=== PATIENT | female | born 1970 | race Caucasian/White ===

== ENCOUNTER 2016-12-29 15:24 | Emergency (ER) | payer OTHER ==
--- NOTE | 2016-12-29 16:11 | ED ---
General Adult HPI - General Chief complaint: Psychiatric Symptoms Stated complaint: mental health Time Seen by Provider: 12/29/16 15:41 Source: patient, family, RN notes reviewed Mode of arrival: ambulatory Limitations: no limitations - History of Present Illness Initial comments: Patient 46-year-old female who presents emergency room today with a chief complaint of increased suicidal thoughts. Patient states that over the last few weeks been having increased thoughts. She states she saw her psychiatrist and did have some medication changes. She states that she still having thoughts of hurting himself. She isn't exam is benign. She states she has had thoughts of hurting herself in the past and has been hospitalized. She denies any homicidal thoughts or plans. She denies any other complaints or symptoms at this time. She admits that last night she was nauseated had a few episodes of vomiting. States she's not having vomiting today. States she has been tolerating liquids and food. Denies any abdominal pain or complaints. Patient denies any recent fever, chills, shortness of breath, chest pain, back pain, abdominal pain, numbness or tingling, dysuria or hematuria, constipation or diarrhea, headaches or visual changes, or any other complaints. - Related Data Home Medications Medication Instructions Recorded Confirmed Bisoprolol-Hctz 10-6.25 mg [Ziac 1 tab PO DAILY 09/02/14 12/29/16 10-6.25 MG] Sertraline [Zoloft] 100 mg PO QAM 09/02/14 12/29/16 Simvastatin [Zocor] 20 mg PO DAILY 09/02/14 12/29/16 Zolpidem [Ambien] 10 mg PO HS 09/02/14 12/29/16 cloNIDine HCL [Catapres] 0.1 mg PO BID 09/02/14 12/29/16 glyBURIDE/METFORMIN HCL 2 tab PO BID 09/02/14 12/29/16 [Glucovance 5-500 mg Tablet] Lurasidone [Latuda] 40 mg PO DAILY 02/06/16 12/29/16 Doxepin HCl [SINEquan] 100 mg PO HS 12/29/16 12/29/16 Omeprazole 20 mg PO HS 12/29/16 12/29/16 Allergies Allergy/AdvReac Type Severity Reaction Status Date / Time erythromycin base Allergy Unknown Verified 12/29/16 16:03 meperidine HCl [From Demerol] Allergy Unknown Verified 12/29/16 16:03 Penicillins Allergy Unknown Verified 12/29/16 16:03 Sulfa (Sulfonamide Allergy Unknown Verified 12/29/16 16:03 Antibiotics) Review of Systems ROS Statement: Those systems with pertinent positive or pertinent negative responses have been documented in the HPI. ROS Other: All systems not noted in ROS Statement are negative. Past Medical History Past Medical History: Diabetes Mellitus, Hyperlipidemia, Hypertension History of Any Multi-Drug Resistant Organisms: MRSA Date of last positivie culture/infection: 01/2010 MDRO Source:: abdomen Past Surgical History: Section, Hysterectomy Additional Past Surgical History / Comment(s): ophrarectomy Past Anesthesia/Blood Transfusion Reactions: No Reported Reaction Past Psychological History: Bipolar, Depression Smoking Status: Never smoker Past Alcohol Use History: None Reported Past Drug Use History: None Reported General Exam - General Exam Comments Initial Comments: General: The patient is awake and alert, in no distress, and does not appear acutely ill. Eye: Pupils are equal, round and reactive to light, extra-ocular movements are intact. No nystagmus. There is normal conjunctiva bilaterally. No signs of icterus. Ears, nose, mouth and throat: There are moist mucous membranes and no oral lesions. Neck: The neck is supple, there is no tenderness or JVD. Cardiovascular: There is a regular rate and rhythm. No murmur, rub or gallop is appreciated. Respiratory: Lungs are clear to auscultation, respirations are non-labored, breath sounds are equal. No wheezes, stridor, rales, or rhonchi. Gastrointestinal: Soft, non-distended, non-tender abdomen without masses or organomegaly noted. There is no rebound or guarding present. No CVA tenderness. Bowel sounds are unremarkable. Musculoskeletal: Normal ROM, no tenderness. Strength 5/5. Sensation intact. Pulses equal bilaterally 2+. Neurological: A&O x 3. CN II-XII intact, There are no obvious motor or sensory deficits. Coordination appears grossly intact. Speech is normal. Skin: Skin is warm and dry and no rashes or lesions are noted. Psychiatric: Cooperative. Limitations: no limitations Course Vital Signs 12/29/16 15:28 Temperature 97.6 F Pulse Rate 93 Respiratory 16 Rate Blood Pressure 127/61 O2 Sat by Pulse 95 Oximetry Medical Decision Making - Medical Decision Making Patient been seen here in the emergency room by mental there recommendation admission to the hospital. Patient willing to sign herself in. - Lab Data Lab Results 12/29/16 Range/Units 15:51 Urine Opiates Screen Not Detected (NotDetected) Ur Oxycodone Screen Not Detected (NotDetected) Urine Methadone Screen Not Detected (NotDetected) Ur Propoxyphene Screen Not Detected (NotDetected) Ur Barbiturates Screen Not Detected (NotDetected) U Tricyclic Antidepress Detected H (NotDetected) Ur Phencyclidine Scrn Not Detected (NotDetected) Ur Amphetamines Screen Not Detected (NotDetected) U Methamphetamines Scrn Not Detected (NotDetected) U Benzodiazepines Scrn Detected H (NotDetected) Urine Cocaine Screen Not Detected (NotDetected) U Marijuana (THC) Screen Not Detected (NotDetected) Disposition Clinical Impression: Suicidal ideation Disposition: TRANSFER TO PSYCH HOSP/UNIT Condition: Stable Referrals: Judy Levy MD [Primary Care Provider] - 1-2 days Time of Disposition: 18:27
[2016-12-29 19:47] LABS: Appearance,Urine Cloudy (Clear); Bilirubin,Urine Negative (Negative); Glucose,Urine (UA) 4+ (Negative); Ketones,Urine Trace (Negative); Leukocyte Esterase,Urine Moderate (Negative); Mucus,Urine Rare /hpf; Nitrite,Urine Negative (Negative); Particle Count 4720; Protein,Urine Trace (Negative); RBC,Urine 23 /hpf (0-5); Specific Gravity,Urine 1.025 (1.001-1.035); Squamous Epithelial Cell,Urine 6 /hpf (0-4); UA Billing (MACRO vs. MICRO) MICRO; WBC,Urine 4 /hpf (0-5)
[2016-12-29 19:52] LABS: Basophils % (A) 1 %; CH 26.9; CHCM 33.3; Eosinophils # (A) 0.1 k/uL (0-0.7); Eosinophils % (A) 1 %; HCT 43.4 % (34.0-46.0); HGB 14.9 gm/dL (11.4-16.0); Luc % (Auto) 2; Lymphocytes # (A) 1.8 k/uL (1.0-4.8); Lymphocytes % (A) 33 %; MCH 27.9 pg (25.0-35.0); MCHC 34.4 g/dL (31.0-37.0); MCV 81.1 fL (80.0-100.0); Mean Platelet Volume 7.6; Monocytes # (A) 0.3 k/uL (0-1.0); Monocytes % (A) 6 %; Neutrophils % (A) 57 %; RBC 5.36 m/uL (3.80-5.40); WBC 5.3 k/uL (3.8-10.6); WBC (Perox) 5.17
[2016-12-29 20:01] LABS: ALT 39 U/L (9-52); AST 39 U/L (14-36); Alkaline Phosphatase 147 U/L (38-126); Anion Gap 9 mmol/L; Blood Urea Nitrogen 8 mg/dL (7-17); Calcium 9.2 mg/dL (8.4-10.2); Carbon Dioxide 26 mmol/L (22-30); Chloride 100 mmol/L (98-107); Glucose 307 mg/dL (74-99); Non-African American GFR(MDRD) >60 (>60 ml/min/1.73 sqM); Potassium 3.5 mmol/L (3.5-5.1); Sodium 135 mmol/L (137-145); Total Bilirubin 1.5 mg/dL (0.2-1.3); Total Protein 7.5 g/dL (6.3-8.2)
[2016-12-29] MEDS ORDERED: metFORMIN 500 MG TAB PO STA (21:55)
[2016-12-29] MEDS ORDERED: cloNIDine HCL 0.1 MG TAB PO STA (21:56)
[2016-12-29] MEDS ORDERED: PANTOPRAZOLE 40 MG TABLET PO STA (21:58)
[2016-12-29] MEDS ORDERED: ZOLPIDEM 10 MG TAB PO PRN (22:00)
[2016-12-29] MEDS ORDERED: DOXEPIN 25 MG CAP PO ONE (22:04)
[2016-12-30] MEDS ORDERED: metFORMIN 500 MG TAB PO STA (07:15)
[2016-12-30] MEDS ORDERED: SERTRALINE 100 MG TAB PO STA (07:17)
[2016-12-30] MEDS ORDERED: cloNIDine HCL 0.1 MG TAB PO STA (07:17)
[2016-12-30] MEDS ORDERED: LURASIDONE 40 MG TAB PO STA (07:18)
[2016-12-30] MEDS ORDERED: BISOPROLOL-HCTZ 10-6.25 MG 1 EACH TAB PO STA (07:18)
[2016-12-30] MEDS ORDERED: glipiZIDE 10 MG TAB PO STA (07:29)
[2016-12-30 20:29] VITALS: BP 130/62; PULSE 84; RESP 16; TEMP 98
[2016-12-30] MEDS ORDERED: ONDANSETRON ODT 4 MG TAB PO STA (20:44)
== END 2016-12-30 20:41 ==
LOC: EC 15:24
DX: R45.851 Suicidal ideations (principal); E11.9 Type 2 diabetes mellitus without complications; I10 Essential (primary) hypertension; E78.5 Hyperlipidemia, unspecified; F31.9 Bipolar disorder, unspecified; Z86.14 Personal history of Methicillin resistant Staphylococcus aureus infection; Z79.84 Long term (current) use of oral hypoglycemic drugs; Z79.899 Other long term (current) drug therapy; Z88.0 Allergy status to penicillin; Z88.2 Allergy status to sulfonamides; Z88.1 Allergy status to other antibiotic agents; Z88.5 Allergy status to narcotic agent
CPT/HCPCS: 36415; 80053; 80306; 81001; 81025; 82075; 85025; 99285

== ENCOUNTER 2017-06-12 16:40 | Emergency (ER) | payer OTHER ==
[2017-06-12 17:00] VITALS: RESP 18
[2017-06-12] MEDS ORDERED: SODIUM CHLORIDE 0.9% 1,000 ML IV STA (18:37)
[2017-06-12] MEDS ORDERED: MECLIZINE 12.5 MG TAB PO STA (18:37)
--- NOTE | 2017-06-12 18:45 | ED ---
Dizziness HPI - General Chief Complaint: Dizziness Stated Complaint: Fall-Head Pain, dizziness Time Seen by Provider: 06/12/17 18:25 Source: patient Mode of arrival: ambulatory Limitations: no limitations - History of Present Illness Initial Comments: 47-year-old female patient presents to the emergency department today for evaluation of dizziness 4-5 days. Patient states that she has been getting these episodes of dizziness out of nowhere multiple times daily for the last 5 days. States that last evening she was coming down the stairs and experienced a dizzy episode. She states that she fell down approximately 6 steps. States that she did strike her head. She denies a loss of consciousness at time of injury. States that she has had a headache since the incident. States that today she feels very fatigued and tired. She continues to feel dizzy. Patient denies any blurred vision, double vision, neck pain, back pain, chest pain, shortness of breath, abdominal pain, nausea, vomiting, or difficulties with bowel movements or urination. - Related Data Home Medications Medication Instructions Recorded Confirmed RX: Bisoprolol-Hctz 10-6.25 mg 1 tab PO DAILY 09/02/14 06/12/17 [Ziac 10-6.25 MG] RX: Sertraline [Zoloft] 150 mg PO QAM 09/02/14 06/12/17 RX: Simvastatin [Zocor] 20 mg PO HS 09/02/14 06/12/17 RX: Zolpidem [Ambien] 10 mg PO HS 09/02/14 06/12/17 RX: cloNIDine HCL [Catapres] 0.1 mg PO BID 09/02/14 06/12/17 RX: glyBURIDE/METFORMIN HCL 2 tab PO BID 09/02/14 06/12/17 [Glucovance 5-500 mg Tablet] RX: Omeprazole 20 mg PO HS 12/29/16 06/12/17 Lurasidone HCl [Latuda] 60 mg PO DAILY 06/12/17 06/12/17 Previous Rx's Medication Instructions Recorded RX: Meclizine HCl 25 mg PO BID #14 tablet 06/12/17 Allergies Allergy/AdvReac Type Severity Reaction Status Date / Time Penicillins Allergy Rash/Hives Verified 06/12/17 18:48 Sulfa (Sulfonamide Allergy Unknown Verified 06/12/17 18:48 Antibiotics) erythromycin base AdvReac Abdominal Verified 06/12/17 18:48 Pain meperidine HCl [From Demerol] AdvReac Nausea & Verified 06/12/17 18:48 Vomiting Review of Systems ROS Statement: Those systems with pertinent positive or pertinent negative responses have been documented in the HPI. ROS Other: All systems not noted in ROS Statement are negative. Past Medical History Past Medical History: Diabetes Mellitus, Hyperlipidemia, Hypertension History of Any Multi-Drug Resistant Organisms: MRSA Date of last positivie culture/infection: 01/2010 MDRO Source:: abdomen Past Surgical History: Section, Hysterectomy Additional Past Surgical History / Comment(s): ophrarectomy Past Anesthesia/Blood Transfusion Reactions: No Reported Reaction Past Psychological History: Bipolar, Depression Smoking Status: Never smoker Past Alcohol Use History: None Reported Past Drug Use History: None Reported General Exam Limitations: no limitations General appearance: alert, in no apparent distress, other (So well-developed, well-nourished adult female patient in no acute distress. Vital signs upon presentation are temperature 98.5 degrees, pulse 90, respirations 18, blood pressure 134/71, pulse ox 96% on room air.) Head exam: Present: atraumatic, normocephalic, normal inspection Eye exam: Present: normal appearance, PERRL, EOMI. Absent: scleral icterus, conjunctival injection, periorbital swelling ENT exam: Present: normal exam, normal oropharynx, mucous membranes moist Respiratory exam: Present: normal lung sounds bilaterally. Absent: respiratory distress, wheezes, rales, rhonchi, stridor Cardiovascular Exam: Present: regular rate, normal rhythm, normal heart sounds. Absent: systolic murmur, diastolic murmur, rubs, gallop, clicks GI/Abdominal exam: Present: soft, normal bowel sounds. Absent: distended, tenderness, guarding, rebound, rigid Neurological exam: Present: alert, oriented X3, CN II-XII intact, other ( Strength in all 4 extremities is 5/5.) Psychiatric exam: Present: normal affect, normal mood Skin exam: Present: warm, dry, intact, normal color. Absent: rash Course Vital Signs 06/12/17 06/12/17 16:56 21:01 Temperature 98.5 F Pulse Rate 90 Pulse Rate [ 90 Sitting] Pulse Rate [ 98 Standing] Pulse Rate [ 87 Supine] Respiratory 18 Rate Blood Pressure 134/71 Blood Pressure 117/63 [Right Arm Sitting] Blood Pressure 113/63 [Right Arm Standing] Blood Pressure 121/75 [Right Arm Supine] O2 Sat by Pulse 96 Oximetry EKG Findings - EKG Comments: EKG Findings:: EKG obtained in 192 shows normal sinus rhythm with prolonged QT , ventricular rate of 92, P interval 174, QRS duration 90, QT 422, QTc 521. No evidence of ST elevation or depression. Medical Decision Making - Medical Decision Making 47-year-old female patient presents to the emergency department today for evaluation of dizziness and headache after experiencing a fall yesterday. Physical examination is unremarkable. Patient is neurologically intact. Labs reviewed and did reveal a white blood cell count of 2.9, sodium 136, chloride 97 , glucose 324, total bili 1.5, AST 54, alk phos of 196. Urinalysis was negative. CT of the brain was obtained and showed no acute abnormalities. I did discuss results and findings with the patient. She has not taken her glucovance today. Patient states that she has had some nasal congestion recently , I did discuss the possibility of the dizziness being related to an inner ear issue. She did receive Antivert while here in the department. States that she does have improvement of her symptoms. She'll be discharged home at this time to follow up with her primary care physician. She is instructed to have repeat labs performed patient instructed to return here immediately for any new, worsening, or concerning symptoms and she verbalizes understanding and agrees with this plan. - Lab Data Result diagrams: 06/12/17 19:12 06/12/17 19:12 Lab Results 06/12/17 06/12/17 06/12/17 Range/Units 19:12 19:12 19:36 WBC 2.9 L (3.8-10.6) k/uL RBC 5.42 H (3.80-5.40) m/uL Hgb 13.8 (11.4-16.0) gm/dL Hct 42.5 (34.0-46.0) % MCV 78.4 L (80.0-100.0) fL MCH 25.4 (25.0-35.0) pg MCHC 32.4 (31.0-37.0) g/dL RDW 16.4 H (11.5-15.5) % Plt Count 81 L (150-450) k/uL Neutrophils % 53 % Lymphocytes % 36 % Monocytes % 6 % Eosinophils % 2 % Basophils % 0 % Neutrophils # 1.5 (1.3-7.7) k/uL Lymphocytes # 1.0 (1.0-4.8) k/uL Monocytes # 0.2 (0-1.0) k/uL Eosinophils # 0.1 (0-0.7) k/uL Basophils # 0.0 (0-0.2) k/uL Manual Slide Review Performed Anisocytosis Slight Microcytosis Slight Sodium 136 L (137-145) mmol/L Potassium 3.9 (3.5-5.1) mmol/L Chloride 97 L (98-107) mmol/L Carbon Dioxide 28 (22-30) mmol/L Anion Gap 11 mmol/L BUN 7 (7-17) mg/dL Creatinine 0.55 (0.52-1.04) mg/dL Est GFR (MDRD) Af Amer >60 (>60 ml/min/1.73 sqM) Est GFR (MDRD) Non-Af >60 (>60 ml/min/1.73 sqM) Glucose 324 H (74-99) mg/dL POC Glucose (mg/dL) (75-99) mg/dL POC Glu Duty Engineer ID Calcium 9.1 (8.4-10.2) mg/dL Total Bilirubin 1.5 H (0.2-1.3) mg/dL AST 54 H (14-36) U/L ALT 32 (9-52) U/L Alkaline Phosphatase 196 H (38-126) U/L Total Protein 7.8 (6.3-8.2) g/dL Albumin 3.7 (3.5-5.0) g/dL Urine Color Yellow Urine Appearance Clear (Clear) Urine pH 5.5 (5.0-8.0) Ur Specific [place] 1.027 (1.001-1.035) Urine Protein Trace H (Negative) Urine Glucose (UA) 4+ H (Negative) Urine Ketones Negative (Negative) Urine Blood Negative (Negative) Urine Nitrite Negative (Negative) Urine Bilirubin Negative (Negative) Urine Urobilinogen 3.0 (<2.0) mg/dL Ur Leukocyte Esterase Negative (Negative) 06/12/17 Range/Units 21:13 WBC (3.8-10.6) k/uL RBC (3.80-5.40) m/uL Hgb (11.4-16.0) gm/dL Hct (34.0-46.0) % MCV (80.0-100.0) fL MCH (25.0-35.0) pg MCHC (31.0-37.0) g/dL RDW (11.5-15.5) % Plt Count (150-450) k/uL Neutrophils % % Lymphocytes % % Monocytes % % Eosinophils % % Basophils % % Neutrophils # (1.3-7.7) k/uL Lymphocytes # (1.0-4.8) k/uL Monocytes # (0-1.0) k/uL Eosinophils # (0-0.7) k/uL Basophils # (0-0.2) k/uL Manual Slide Review Anisocytosis Microcytosis Sodium (137-145) mmol/L Potassium (3.5-5.1) mmol/L Chloride (98-107) mmol/L Carbon Dioxide (22-30) mmol/L Anion Gap mmol/L BUN (7-17) mg/dL Creatinine (0.52-1.04) mg/dL Est GFR (MDRD) Af Amer (>60 ml/min/1.73 sqM) Est GFR (MDRD) Non-Af (>60 ml/min/1.73 sqM) Glucose (74-99) mg/dL POC Glucose (mg/dL) 301 H (75-99) mg/dL POC Glu Duty Engineer ID Karol Correa Calcium (8.4-10.2) mg/dL Total Bilirubin (0.2-1.3) mg/dL AST (14-36) U/L ALT (9-52) U/L Alkaline Phosphatase (38-126) U/L Total Protein (6.3-8.2) g/dL Albumin (3.5-5.0) g/dL Urine Color Urine Appearance (Clear) Urine pH (5.0-8.0) Ur Specific [place] (1.001-1.035) Urine Protein (Negative) Urine Glucose (UA) (Negative) Urine Ketones (Negative) Urine Blood (Negative) Urine Nitrite (Negative) Urine Bilirubin (Negative) Urine Urobilinogen (<2.0) mg/dL Ur Leukocyte Esterase (Negative) - Radiology Data Radiology results: report reviewed, image reviewed CT of the brain without contrast was performed, ventricles appear normal. There is no mass effect or midline shift. No sign of intracranial hemorrhage. The calvarium is intact. Physical base appears intact. Conclusion by Dr. Vee shows normal computed tomography scan of the brain. Disposition Clinical Impression: Dizziness, Head injury Disposition: HOME SELF-CARE Condition: Good Instructions: Head Injury (ED), Dizziness (ED) Additional Instructions: Follow-up with her primary care physician for repeat lab testing, while in the hospital your white blood cell count was 2.9 which is low. Take medications as directed. Increase fluids. Follow-up with her primary care physician for recheck in 1-2 days. Return here immediately for any new, worsening, or concerning symptoms. Prescriptions: RX: Meclizine HCl 25 mg PO BID #14 tablet Referrals: Judy Levy MD [Primary Care Provider] - 1-2 days
[2017-06-12 19:32] LABS: Anisocytosis Slight; Basophils % (A) 0 %; Eosinophils # (A) 0.1 k/uL (0-0.7); Eosinophils % (A) 2 %; HCT 42.5 % (34.0-46.0); HGB 13.8 gm/dL (11.4-16.0); Lymphocytes % (A) 36 %; MCH 25.4 pg (25.0-35.0); MCHC 32.4 g/dL (31.0-37.0); MCV 78.4 fL (80.0-100.0); Mean Platelet Volume 7.1; Microcytosis Slight; Monocytes # (A) 0.2 k/uL (0-1.0); Monocytes % (A) 6 %; Neutrophils # (A) 1.5 k/uL (1.3-7.7); Neutrophils % (A) 53 %; RBC 5.42 m/uL (3.80-5.40); RDW 16.4 % (11.5-15.5); WBC 2.9 k/uL (3.8-10.6)
[2017-06-12 19:43] LABS: ALT 32 U/L (9-52); AST 54 U/L (14-36); Albumin 3.7 g/dL (3.5-5.0); Alkaline Phosphatase 196 U/L (38-126); Anion Gap 11 mmol/L; Blood Urea Nitrogen 7 mg/dL (7-17); Calcium 9.1 mg/dL (8.4-10.2); Carbon Dioxide 28 mmol/L (22-30); Chloride 97 mmol/L (98-107); Glucose 324 mg/dL (74-99); Potassium 3.9 mmol/L (3.5-5.1); Sodium 136 mmol/L (137-145); Total Bilirubin 1.5 mg/dL (0.2-1.3); Total Protein 7.8 g/dL (6.3-8.2)
[2017-06-12 19:45] LABS: Appearance,Urine Clear (Clear); Bilirubin,Urine Negative (Negative); Blood,Urine Negative (Negative); Color,Urine Yellow; Glucose,Urine (UA) 4+ (Negative); Ketones,Urine Negative (Negative); Leukocyte Esterase,Urine Negative (Negative); Nitrite,Urine Negative (Negative); PH, Urine 5.5 (5.0-8.0); Protein,Urine Trace (Negative); Specific Gravity,Urine 1.027 (1.001-1.035)
[2017-06-12 19:55] LABS: Platelet Count 81 k/uL (150-450)
--- NOTE | 2017-06-12 19:58 | CT ---
EXAMINATION TYPE: CT brain wo con DATE OF EXAM: 06/12/2017 COMPARISON: NONE HISTORY: Dizziness, fall down stairs last night. Right sided head injury. CT DLP: 1036 mGycm. Automated Exposure Control for Dose Reduction was Utilized. TECHNIQUE: CT scan of the head is performed without contrast. FINDINGS: The ventricles appear normal. There is no mass effect nor midline shift. There is no sign of intracranial hemorrhage. The calvarium is intact. Skull base appears intact. CONCLUSION: Normal CT scan of the brain.
[2017-06-12 21:04] VITALS: BP 121/75; PULSE 87
[2017-06-12 21:15] LABS: Glucose,Whole Blood 301 mg/dL (75-99)
[2017-06-12 21:22] VITALS: TEMP 98.4
== END 2017-06-12 21:21 | disposition home or self-care (01) ==
LOC: EC 16:40
DX: S09.90XA Unspecified injury of head, initial encounter (principal); R42 Dizziness and giddiness; E11.9 Type 2 diabetes mellitus without complications; E78.5 Hyperlipidemia, unspecified; I10 Essential (primary) hypertension; F31.9 Bipolar disorder, unspecified; Z86.14 Personal history of Methicillin resistant Staphylococcus aureus infection; Z79.84 Long term (current) use of oral hypoglycemic drugs; Z79.899 Other long term (current) drug therapy; Z88.0 Allergy status to penicillin; Z88.1 Allergy status to other antibiotic agents; Z88.2 Allergy status to sulfonamides; Z88.5 Allergy status to narcotic agent; W10.9XXA Fall (on) (from) unspecified stairs and steps, initial encounter
CPT/HCPCS: 36415; 70450; 80053; 81003; 85025; 93005; 96360; 99284

== ENCOUNTER 2017-07-06 23:29 | Emergency (ER) | payer OTHER ==
[2017-07-06 23:44] VITALS: RESP 18
--- NOTE | 2017-07-07 00:06 | ED ---
General Adult HPI - General Chief complaint: Fall Stated complaint: fall Time Seen by Provider: 07/06/17 23:59 Source: patient, EMS, RN notes reviewed Mode of arrival: EMS Limitations: no limitations - History of Present Illness Initial comments: 47-year-old female presents to the emergency department with a chief complaint of trip and fall. She tripped over the cat falling and hitting her forehead on the coffee table today. She states she did not pass out. She has had a little nausea and a mild headache. She states that her neck feels stiff. She denies any arm or leg pain from the palm fall or any other injury. She denies any use of blood thinners or any other complaints at this time.Patient denies any recent fever, chills, shortness of breath, chest pain, back pain, abdominal pain , vomiting, numbness or tingling, dysuria or hematuria, constipation or diarrhea , visual changes, or any other current symptoms. - Related Data Home Medications Medication Instructions Recorded Confirmed Bisoprolol-Hctz 10-6.25 mg [Ziac 1 tab PO DAILY 09/02/14 06/12/17 10-6.25 MG] Sertraline [Zoloft] 150 mg PO QAM 09/02/14 06/12/17 Simvastatin [Zocor] 20 mg PO HS 09/02/14 06/12/17 Zolpidem [Ambien] 10 mg PO HS 09/02/14 06/12/17 cloNIDine HCL [Catapres] 0.1 mg PO BID 09/02/14 06/12/17 glyBURIDE/METFORMIN HCL 2 tab PO BID 09/02/14 06/12/17 [Glucovance 5-500 mg Tablet] Omeprazole 20 mg PO HS 12/29/16 06/12/17 Lurasidone HCl [Latuda] 60 mg PO DAILY 06/12/17 06/12/17 Previous Rx's Medication Instructions Recorded Meclizine HCl 25 mg PO BID #14 tablet 06/12/17 Allergies Allergy/AdvReac Type Severity Reaction Status Date / Time Penicillins Allergy Rash/Hives Verified 06/12/17 18:48 Sulfa (Sulfonamide Allergy Unknown Verified 06/12/17 18:48 Antibiotics) erythromycin base AdvReac Abdominal Verified 06/12/17 18:48 Pain meperidine HCl [From Demerol] AdvReac Nausea & Verified 06/12/17 18:48 Vomiting Review of Systems ROS Statement: Those systems with pertinent positive or pertinent negative responses have been documented in the HPI. ROS Other: All systems not noted in ROS Statement are negative. Past Medical History Past Medical History: Diabetes Mellitus, Hyperlipidemia, Hypertension History of Any Multi-Drug Resistant Organisms: MRSA Date of last positivie culture/infection: 01/2010 MDRO Source:: abdomen Past Surgical History: Section, Hysterectomy Additional Past Surgical History / Comment(s): ophrarectomy Past Anesthesia/Blood Transfusion Reactions: No Reported Reaction Past Psychological History: Bipolar, Depression Smoking Status: Never smoker Past Alcohol Use History: None Reported Past Drug Use History: None Reported General Exam - General Exam Comments Initial Comments: General: The patient is awake and alert, in no distress, and does not appear acutely ill. Eye: Pupils are equal, round and reactive to light, extra-ocular movements are intact; there is normal conjunctiva bilaterally. No signs of icterus. Ears, nose, mouth and throat: There are moist mucous membranes. Neck: The neck is supple, there is no tenderness. Cardiovascular: There is a regular rate and rhythm. No murmur, rub or gallop is appreciated. Respiratory: Lungs are clear to auscultation, respirations are non-labored, breath sounds are equal. No wheezes, stridor, rales, or rhonchi. Gastrointestinal: Soft, non-distended, non-tender abdomen without masses or organomegaly noted. There is no rebound or guarding present. No CVA tenderness. Bowel sounds are unremarkable. Back: There is no tenderness to palpation in the midline. There is no obvious deformity. No rashes noted. Musculoskeletal: Normal ROM, no tenderness, There is no pedal edema. There is no calf tenderness or swelling. Sensation intact. Pulses equal bilaterally 2+. Neurological: CN II-XII intact, There are no obvious motor or sensory deficits. Coordination appears grossly intact. Speech is normal. Skin: Skin is warm and dry and no rashes or lesions are noted. Psychiatric: Cooperative, appropriate mood & affect, normal judgment. Limitations: no limitations Course Vital Signs 07/06/17 23:37 Temperature 98.2 F Pulse Rate 92 Respiratory 18 Rate Blood Pressure 125/69 O2 Sat by Pulse 95 Oximetry Medical Decision Making - Medical Decision Making 47-year-old female presents for fall. At this time CAT scan is reviewed and negative. This and we discussed Motrin Tylenol for pain. We discussed most likely a concussion. We discussed return parameters. We discussed most likely cervical strain. We discussed follow-up for this. All questions have been answered. Patient is given this plan. At this time the patient will be discharged. - Radiology Data Radiology results: report reviewed, image reviewed Disposition Clinical Impression: Fall, Concussion without loss of consciousness, Cervical strain Disposition: HOME SELF-CARE Condition: Stable Instructions: Cervical Strain (ED), Concussion (ED) Additional Instructions: Please use medication as discussed. Please follow up with family doctor if symptoms have not improved over the next two days. Please return to the emergency room if your symptoms increase or worsen or for any other concerns. Referrals: Judy Levy MD [Primary Care Provider] - 1-2 days Time of Disposition: 00:46
--- NOTE | 2017-07-07 00:32 | CT ---
EXAMINATION TYPE: CT brain [place] [facility] DATE OF EXAM: 07/07/2017 COMPARISON: Head CT scan 06/12/2017 HISTORY: fall CT DLP: 1903.80 mGycm Automated exposure control for dose reduction was used. TECHNIQUE: CT scan of the head and cervical spine are performed without contrast. FINDINGS: Ventricles have normal size. There is no mass effect nor midline shift. There is no sign of intracranial hemorrhage. The calvarium is intact. The cervical vertebra have fairly normal spacing and alignment. Posterior elements are intact. There is posterior endplate spur formation at C6-7. I see no significant spinal stenosis. Facet joints are intact. There is hypertrophic facet arthropathy throughout the cervical spine. Skull base is intact. IMPRESSION: Negative CT scan of the brain. No change. Mild spondylosis at C5-6 C6-7. No fracture.
[2017-07-07] MEDS ORDERED: KETOROLAC 60 MG/2 ML VIAL IM STA (00:46)
[2017-07-07] MEDS ORDERED: ONDANSETRON 4 MG ODT STARTER PACK 2 TAB BTL PO STA (00:46)
[2017-07-07 01:03] VITALS: BP 122/66; PULSE 86; TEMP 97.9
== END 2017-07-07 01:06 | disposition home or self-care (01) ==
LOC: EC 23:29
DX: S06.0X0A Concussion without loss of consciousness, initial encounter (principal); S16.1XXA Strain of muscle, fascia and tendon at neck level, initial encounter; E11.9 Type 2 diabetes mellitus without complications; E78.5 Hyperlipidemia, unspecified; I10 Essential (primary) hypertension; F31.9 Bipolar disorder, unspecified; Z86.14 Personal history of Methicillin resistant Staphylococcus aureus infection; Z79.84 Long term (current) use of oral hypoglycemic drugs; Z79.899 Other long term (current) drug therapy; Z88.0 Allergy status to penicillin; Z88.1 Allergy status to other antibiotic agents; Z88.2 Allergy status to sulfonamides; Z88.5 Allergy status to narcotic agent; W01.190A Fall on same level from slipping, tripping and stumbling with subsequent striking against furniture, initial encounter; Y93.01 Activity, walking, marching and hiking; Y92.009 Unspecified place in unspecified non-institutional (private) residence as the place of occurrence of the external cause
CPT/HCPCS: 72125; 70450; 99284; 96372; J1885; S0119

== ENCOUNTER 2017-10-28 02:18 | Emergency (ER) | payer OTHER ==
[2017-10-28 02:26] VITALS: TEMP 98
[2017-10-28] MEDS ORDERED: MECLIZINE 12.5 MG TAB PO STA (02:37)
--- NOTE | 2017-10-28 03:14 | ED ---
Dizziness HPI - General Chief Complaint: Dizziness Stated Complaint: dizziness Time Seen by Provider: 10/28/17 02:28 Source: patient Mode of arrival: wheelchair Limitations: no limitations - History of Present Illness Initial Comments: 47-year-old female patient presents to the emergency department today with complaints of dizziness. Patient states that whenever she turns her head side to side or looks up she becomes dizzy. States that she feels like her head is being controlled around. Denies any nausea or vomiting with this. Denies any chest pain, shortness of breath, sweats, fever, or chills. Patient states that she is having mild bilateral ear pain. States that she does have ALLERGIES. Denies taking anything for her symptoms. She does have a history of vertigo. This is feels similar. Patient denies any increase in her symptoms with change of position. States that her symptoms are constant. Patient denies any recent rash, abdominal pain, nausea, vomiting, diarrhea, constipation, back pain, numbness, tingling, weakness, hematuria, dysuria, urinary urgency, urinary frequency, headache, visual changes, or any other complaints. - Related Data Home Medications Medication Instructions Recorded Confirmed Bisoprolol-Hctz 10-6.25 mg [Ziac 1 tab PO DAILY 09/02/14 06/12/17 10-6.25 MG] Sertraline [Zoloft] 150 mg PO QAM 09/02/14 06/12/17 Simvastatin [Zocor] 20 mg PO HS 09/02/14 06/12/17 Zolpidem [Ambien] 10 mg PO HS 09/02/14 06/12/17 cloNIDine HCL [Catapres] 0.1 mg PO BID 09/02/14 06/12/17 glyBURIDE/METFORMIN HCL 2 tab PO BID 09/02/14 06/12/17 [Glucovance 5-500 mg Tablet] Omeprazole 20 mg PO HS 12/29/16 06/12/17 Lurasidone HCl [Latuda] 60 mg PO DAILY 06/12/17 06/12/17 Previous Rx's Medication Instructions Recorded Meclizine HCl 25 mg PO BID #14 tablet 06/12/17 Meclizine HCl 25 mg PO BID #14 tablet 10/28/17 Allergies Allergy/AdvReac Type Severity Reaction Status Date / Time Penicillins Allergy Rash/Hives Verified 06/12/17 18:48 Sulfa (Sulfonamide Allergy Unknown Verified 06/12/17 18:48 Antibiotics) erythromycin base AdvReac Abdominal Verified 06/12/17 18:48 Pain meperidine HCl [From Demerol] AdvReac Nausea & Verified 06/12/17 18:48 Vomiting Review of Systems ROS Statement: Those systems with pertinent positive or pertinent negative responses have been documented in the HPI. ROS Other: All systems not noted in ROS Statement are negative. Past Medical History Past Medical History: Diabetes Mellitus, Hyperlipidemia, Hypertension History of Any Multi-Drug Resistant Organisms: MRSA Date of last positivie culture/infection: 01/2010 MDRO Source:: abdomen Past Surgical History: Section, Hysterectomy Additional Past Surgical History / Comment(s): ophrarectomy Past Anesthesia/Blood Transfusion Reactions: No Reported Reaction Past Psychological History: Bipolar, Depression Smoking Status: Never smoker Past Alcohol Use History: None Reported Past Drug Use History: None Reported General Exam Limitations: no limitations General appearance: alert, in no apparent distress, other (This is a well- developed, well-nourished adult female patient in no acute distress. Vital signs upon presentation are temperature 98.0F, pulse 86, respirations 15, blood pressure 112/78, pulse ox 97% on room air.) Eye exam: Present: normal appearance, PERRL, EOMI. Absent: scleral icterus, conjunctival injection, nystagmus, periorbital swelling ENT exam: Present: normal exam, normal oropharynx, mucous membranes moist Respiratory exam: Present: normal lung sounds bilaterally. Absent: respiratory distress, wheezes, rales, rhonchi, stridor Cardiovascular Exam: Present: regular rate, normal rhythm, normal heart sounds. Absent: systolic murmur, diastolic murmur, rubs, gallop, clicks GI/Abdominal exam: Present: soft, normal bowel sounds. Absent: distended, tenderness, guarding, rebound, rigid Neurological exam: Present: alert, oriented X3, CN II-XII intact Psychiatric exam: Present: normal affect, normal mood Skin exam: Present: warm, dry, intact, normal color. Absent: rash Course Vital Signs 10/28/17 10/28/17 02:23 03:53 Temperature 98.0 F 98.0 F Pulse Rate 86 80 Respiratory 15 18 Rate Blood Pressure 112/78 116/55 O2 Sat by Pulse 97 95 Oximetry EKG Findings - EKG Comments: EKG Findings:: EKG obtained at 02 51 shows normal sinus rhythm with prolonged QT interval. Ventricular rate is 84, IA interval 168, QR gnosticist 90, QT 422 , QTc 498. No evidence of ST elevation or depression. Medical Decision Making - Medical Decision Making 47-year-old female patient with past medical history of vertigo presents to the emergency department today with complaints of dizziness. Patient reports the dizziness occurs whenever she turns her head left, right, or looks up. Physical examination is relatively unremarkable. She is neurologically intact. Patient is not having any chest pain, shortness of breath, or sweats with her symptoms. No nausea or vomiting. Patient's symptoms are consistent with vertigo. She was given 50 mg of meclizine here in the department. She denies have much improvement of symptoms we did give an IM dose of Valium. She'll be discharged home at this time to follow-up with her primary care physician for recheck in 1-2 days. She'll be given a prescription for meclizine. Return parameters discussed in detail. She verbalizes understanding and agrees with this plan. Disposition Clinical Impression: Vertigo Disposition: HOME SELF-CARE Condition: Good Instructions: Vertigo (ED), Dizziness (ED) Additional Instructions: Take medications as directed. Follow-up with your primary care physician for recheck as soon as possible. Return here immediately for any new, worsening, or concerning symptoms. Prescriptions: Meclizine HCl 25 mg PO BID #14 tablet Is patient prescribed a controlled substance at d/c from ED?: No Referrals: Judy Levy MD [Primary Care Provider] - 1-2 days Time of Disposition: 03:40
[2017-10-28] MEDS ORDERED: DIAZEPAM 5 MG/ML 2 ML INJ IM ONE (03:32)
[2017-10-28 03:56] VITALS: BP 116/55; PULSE 80; RESP 18
== END 2017-10-28 04:00 | disposition home or self-care (01) ==
LOC: EC 02:18
DX: R42 Dizziness and giddiness (principal); H92.03 Otalgia, bilateral; E11.9 Type 2 diabetes mellitus without complications; E78.5 Hyperlipidemia, unspecified; I10 Essential (primary) hypertension; F31.9 Bipolar disorder, unspecified; Z86.14 Personal history of Methicillin resistant Staphylococcus aureus infection; Z90.710 Acquired absence of both cervix and uterus; Z79.899 Other long term (current) drug therapy; Z88.0 Allergy status to penicillin; Z88.1 Allergy status to other antibiotic agents; Z88.2 Allergy status to sulfonamides; Z88.5 Allergy status to narcotic agent
CPT/HCPCS: 93005; 99284; 96372; J3360

== ENCOUNTER → 2017-12-24 | Outpatient (CLI) | payer OTHER ==
--- NOTE | 2017-12-24 14:52 | CONS ---
CONSULTATION DATE OF SERVICE: 12/24/2017 47-year-old lady has been evaluated in Sleep Center for her sleep problems. The patient has significant problems with falling asleep. She snores and has witnessed episodes of stopped breathing during the sleep. Her sleep schedule from 11:00 p.m., but often she has a lot of problem with falling asleep and she may stay in bed until next day 3:00 p.m.- 6:00 p.m. She does have TV set in bedroom. She sleeps on the side position or chair. She snores, has episodes of panic attack, heartburn, gasping for air, positive history of sleep talking. She wakes up from sleep several times with episodes of nocturia. On the following day she wakes up tired, has difficulties to pay attention, falling asleep during the day, worries about her sleep, has problems with memory, concentration, diabetes, depression, anxiety, sexual dysfunction. [place] Sleepiness Scale significantly increased to 13. PAST MEDICAL HISTORY: Positive for anxiety, depression, diabetes mellitus, hypertension, hyperlipidemia. PAST SURGICAL HISTORY: Total hysterectomy. MEDICATIONS: Trazodone, Latuda, bisoprolol hydrochlorothiazide, Clonidine, omeprazole, Zoloft, Januvia, simvastatin, glimepiride, zolpidem, lorazepam. SOCIAL HISTORY: Negative for smoking. Alcohol consumption rarely. FAMILY HISTORY: Hypertension, hyperlipidemia, arthritis, sinus problems, snoring, insomnia, diabetes, headaches, acid reflux, mental illness. REVIEW OF SYSTEMS: Difficult to initiate sleep, multiple awakenings from sleep, tiredness and sleepiness during the day. PHYSICAL EXAM: GENERAL lady without distress. VITAL SIGNS BP 130/84, HR 90, RR 16, height 5 feet 4-1/2 inches, weight 221, BMI 37.30, temperature 99.2, oxygen saturation on room air 96%. HEENT PERRLA, EOMI, evaluation of oropharynx showed practically normal position of the soft palate. Slight restriction of nasal breathing. Neck 14-3/4 inches in circumference. NECK Supple, no JVD. Thyroid is not palpable. LUNGS Clear to percussion and to auscultation. Good air exchange. No wheezing or rhonchi. HEART S1, S2 regular. No murmurs, gallops, or rubs. ABDOMEN Obese. Soft and nontender. Bowel sounds are present. No organomegaly appreciated. EXTREMITIES No clubbing or cyanosis. AIRCRAFT ENGINE SPECIALIST Awake, alert, and oriented X3. Cranial nerves 2 to 7 intact. There is no fasciculation or atrophy. noted. No focal deficits observed. IMPRESSION: 1. Snoring, witnessed episodes of stopped breathing during the sleep, restriction of nasal breathing, possible obstructive sleep apnea-hypopnea syndrome. 2. Difficulties with initiate sleep, chronic insomnia, possibly secondary to anxiety. 3. History of anxiety. 4. History of depression. 5. Hypertension. 6. Diabetes mellitus. 7. Obesity, BMI 37.3. 8. Diabetes mellitus. 9. Hyperlipidemia. 10.Status post total hysterectomy. PLAN: 1. Polysomnography for evaluation of patient's breathing during sleep. 2. CPAP/BiPAP titration if sleep study confirms obstructive sleep apnea-hypopnea syndrome. 3. Preferable position during sleep on the side. 4. No driving if patient feels any sleepiness. 5. I will see patient for follow up visit to explain results of testing and following plan. 6. Psychological techniques and including stimulus control, paradoxical intention, worry time for treatment of insomnia. Thank you very much for referral of this patient for consultation. Sincerely, Rene Wall MD, PhD, FAASM Diplomat of [place] [employer] [employer] Design Studio Consultant of [facility] [place] MMODL / ROSALBAN: [id number] /
== END | disposition home or self-care (01) ==
LOC: SLEEP 13:13
PROVIDERS: ATTEND Internal Medicine
DX: G47.00 Insomnia, unspecified (principal); F41.9 Anxiety disorder, unspecified; F32.9 Major depressive disorder, single episode, unspecified; I10 Essential (primary) hypertension; E11.9 Type 2 diabetes mellitus without complications; E66.9 Obesity, unspecified; Z68.37 Body mass index [BMI] 37.0-37.9, adult; E78.5 Hyperlipidemia, unspecified; Z90.710 Acquired absence of both cervix and uterus; Z79.899 Other long term (current) drug therapy
CPT/HCPCS: 99211

== ENCOUNTER → 2018-01-21 | Outpatient (CLI) | payer OTHER ==
--- NOTE | 2018-01-21 18:25 | PN ---
PROGRESS NOTE DATE OF SERVICE: 01/21/2018 This is a 47-year-old lady who has been followed in the sleep center to discuss results to the sleep study and following plan. The patient had a diagnostic polysomnogram on 01/12/2018, and I discussed results of the sleep study with the patient in detail. We did not see any significant amount of stopped breathing or shallow breathing during the sleep. Total apnea-hypopnea index was only 1.5, which is totally in normal range. At the same time, lowest oxygen level during the sleep was 81.6%, and by computer calculation, the level of oxygen was equal or below 88% for 276.7 minutes. The patient has acrylic nails, and the finger which was used for oximetry had its acrylic nail broken during the test. According to the patient, it was just her regular nail there. Because there is a question, maybe we had some kind of artifactual decreasing of oxygen during the sleep study. At the same time, patient's brother has a history of cystic fibrosis. She had a pulmonary function test in the past and results of pulmonary function test were normal for our patient. She continues to have some symptoms of excessive daytime sleepiness. [place] Sleepiness Scale increased to 16. MEDICATIONS: 1. Trazodone. 2. Latuda. 3. Bisoprolol. 4. Hydrochlorothiazide. 5. Clonidine. 6. Zoloft. 7. Omeprazole. 8. Januvia. 9. Simvastatin. 10.Glimepiride. 11.Zolpidem. 12.Lorazepam. PHYSICAL EXAMINATION: GENERAL A pleasant patient in no distress. VITAL SIGNS: BP 152/93, HR 95, RR 14, weight 224.6, temperature 97.8, oxygen level saturation at room air 98%. HEENT: PERRLA, EOMI. Evaluation of oropharynx showed tongue protrudes midline; practically normal position of soft palate. NECK: Supple. No JVD. Thyroid is not palpable. LUNGS: Clear to percussion and to auscultation. Good air exchange. No wheezing or rhonchi. HEART: S1, S2 regular. No murmurs, gallops or rubs. ABDOMEN: Obese. EXTREMITIES : No clubbing or cyanosis. HIGH SCHOOL DIRECTOR: Awake, alert, and oriented X3. Cranial nerves 2 to 7 intact. There is no fasciculation or atrophy. noted. No focal deficits observed. IMPRESSION: 1. No significant sleep apnea or hypopnea during the sleep study. 2. Long oxygen desaturation during sleep without any episodes of short oxygen desaturation. Total oxygen level is equal or below 88% for 276 minutes, which is 59.2% of the time. 3. Patient continues to have symptoms of significant excessive daytime sleepiness. [place] Sleepiness Scale is 16 today. Differential diagnosis should include hypersomnia and also sleepiness related to some medications. The patient may take several medications like Zoloft or lorazepam during the day, which also could be related to sleepiness. 4. Obesity, body mass index 37.7. 5. History of anxiety. 6. History of depression. 7. Hypertension. 8. Diabetes mellitus. 9. Hyperlipidemia. 10.Status post total hysterectomy that was done for fibroids. PLAN: 1. We will consider repeating polysomnogram with a following multiple sleep latency test for objective evaluation of patient's symptoms of significant excessive daytime sleepiness and to recheck for oxygenation during sleep. 2. Losing weight. 3. Sleep hygiene with regular time in bed for at least 8 hours. 4. No driving if feeling any sleepiness. 5. We will try to get results of pulmonary function test which was done before. Thank you very much for allowing me to participate in the management of your patient. Sincerely, Rene Wall MD, PhD, FAASM Diplomat of [place] [employer] [place] [employer] Clinical Laboratory Manager of [facility] [place] MMRONNYL / ROSALBAN: [id number] /
== END ==
LOC: SLEEP 16:31
PROVIDERS: ATTEND Internal Medicine
DX: G47.10 Hypersomnia, unspecified (principal); E66.9 Obesity, unspecified; F41.9 Anxiety disorder, unspecified; F32.9 Major depressive disorder, single episode, unspecified; I10 Essential (primary) hypertension; E11.9 Type 2 diabetes mellitus without complications; E78.5 Hyperlipidemia, unspecified; Z90.710 Acquired absence of both cervix and uterus; Z68.37 Body mass index [BMI] 37.0-37.9, adult; Z79.899 Other long term (current) drug therapy; Z79.84 Long term (current) use of oral hypoglycemic drugs

== ENCOUNTER 2018-02-04 22:06 | Emergency (ER) | payer OTHER ==
[2018-02-04 22:18] VITALS: TEMP 98.4
--- NOTE | 2018-02-04 23:14 | ED ---
Lower Extremity Injury HPI - General Chief Complaint: Extremity Injury, Lower Stated Complaint: foot injury Time Seen by Provider: 02/04/18 22:36 Source: patient Mode of arrival: ambulatory Limitations: no limitations - History of Present Illness Initial Comments: 47-year-old female with past medical history of type 2 diabetes, hypertension hyperlipidemia presenting today for chief complaint of left foot pain x 5 days. Patient states she was just visiting her son in [place] when she was trying to take a fan off she tripped on a cord curling her toes underneath and applying full weight. Patient noticed bruising at the base of each toe as well as on the bottom of her foot. Patient continued to partial weight-bear and ambulate the rest of the trip. She returned home today, and presented for evaluation. Patient denies numbness, tingling, loss sensation, muscle weakness. Patient has been taking Tylenol for pain management. Patient does admit to decreased range of motion of the digits of the left foot secondary to pain as well as ecchymosis at the base of each toe and arch of the foot. Patient was concerned of fracture presents emergency department for evaluation. Patient denies any recent fever, chills, shortness of breath, chest pain, back pain, abdominal pain, nausea or vomiting, numbness or tingling, dysuria or hematuria, constipation or diarrhea, headaches or visual changes, or any other complaints. - Related Data Home Medications Medication Instructions Recorded Confirmed Bisoprolol-Hctz 10-6.25 mg [Ziac 1 tab PO DAILY 09/02/14 02/04/18 10-6.25 MG] Sertraline [Zoloft] 100 mg PO DAILY 09/02/14 02/04/18 Simvastatin [Zocor] 20 mg PO HS 09/02/14 02/04/18 Zolpidem [Ambien] 10 mg PO HS 09/02/14 02/04/18 cloNIDine HCL [Catapres] 0.1 mg PO BID 09/02/14 02/04/18 glyBURIDE/METFORMIN HCL 2 tab PO BID 09/02/14 02/04/18 [Glucovance 5-500 mg Tablet] Omeprazole 20 mg PO DAILY 12/29/16 02/04/18 Lurasidone HCl [Latuda] 60 mg PO DAILY 06/12/17 02/04/18 Hydrochlorothiazide 12.5 mg PO DAILY 02/04/18 02/04/18 LORazepam [Ativan] 1 mg PO DAILY PRN 02/04/18 02/04/18 sitaGLIPtin [Januvia] 100 mg PO DAILY 02/04/18 02/04/18 traZODone HCL [Desyrel] 200 mg PO HS 02/04/18 02/04/18 Allergies Allergy/AdvReac Type Severity Reaction Status Date / Time Penicillins Allergy Rash/Hives Verified 02/04/18 22:39 Sulfa (Sulfonamide Allergy Rash/Hives Verified 02/04/18 22:39 Antibiotics) erythromycin base AdvReac Abdominal Verified 02/04/18 22:39 Pain meperidine HCl [From Demerol] AdvReac Confusion Verified 02/04/18 22:39 Review of Systems ROS Statement: Those systems with pertinent positive or pertinent negative responses have been documented in the HPI. ROS Other: All systems not noted in ROS Statement are negative. Constitutional: Denies: fever, chills Eyes: Denies: eye pain ENT: Denies: ear pain, throat pain Respiratory: Denies: cough, dyspnea Cardiovascular: Denies: chest pain, palpitations Endocrine: Denies: fatigue Gastrointestinal: Denies: abdominal pain, nausea, vomiting, diarrhea Genitourinary: Denies: urgency, dysuria, frequency Musculoskeletal: Reports: joint swelling, arthralgia, other (ecchymosis of the planat surface, base of all digits of the left foot). Denies: back pain Skin: Reports: change in color. Denies: rash, lesions Past Medical History Past Medical History: Diabetes Mellitus, Hyperlipidemia, Hypertension History of Any Multi-Drug Resistant Organisms: MRSA Date of last positivie culture/infection: 01/2010 MDRO Source:: abdomen Past Surgical History: Section, Hysterectomy Additional Past Surgical History / Comment(s): ophrarectomy Past Anesthesia/Blood Transfusion Reactions: No Reported Reaction Past Psychological History: Bipolar, Depression Smoking Status: Never smoker Past Alcohol Use History: None Reported Past Drug Use History: None Reported General Exam - General Exam Comments Initial Comments: General: The patient is awake and alert, in no distress, and does not appear acutely ill. Eye: Pupils are equal, round and reactive to light, extra-ocular movements are intact. No nystagmus. There is normal conjunctiva bilaterally. No signs of icterus. Cardiovascular: There is a regular rate and rhythm. No murmur, rub or gallop is appreciated. Respiratory: Lungs are clear to auscultation, respirations are non-labored, breath sounds are equal. No wheezes, stridor, rales, or rhonchi. Musculoskeletal: Significant ecchymosis of the MTP joint of all 5 digits and the midfoot as well as the plantar surface of the left foot. Moderate swelling of the mid foot.Patient is able to wiggle toes, however she complained the pain. Strength 5/5 with all movement of the ankle, refused muscle testing of foot/digits. Sensation intact. Pulses equal bilaterally 2+. Neurological: A&O x 3. CN II-XII intact, There are no obvious motor or sensory deficits. Coordination appears grossly intact. Speech is normal. Skin: Skin is warm and dry and no rashes or lesions are noted. Psychiatric: Cooperative, appropriate mood & affect, normal judgment. Limitations: no limitations Course Vital Signs 02/04/18 22:15 Temperature 98.4 F Pulse Rate 103 H Respiratory 20 Rate Blood Pressure 146/85 O2 Sat by Pulse 98 Oximetry Medical Decision Making - Medical Decision Making PE concerning for lisfranc injury. XR obtained revealed a closed, nondisplaced fracture of the 3rd metatarsal. Pt placed in posterior mold splint. Given RX for crutches and told not to weight bear for next 8 weeks or until orthopedic surgery consult. Pt was instructed to consult Dr. Macias first thing tmrw morning for f/u within the next 24-48hours. Pt verbalized understanding. Importance of nonweight bearing was stressed to pt. Pt neurovascularly intact on exam and post splinting. In addition pt was instructed to use RICE instruction as well as ibuprofen and tylenol for pain mgmt as needed. Case discussed with Dr. Yanez who reviewed all imaging, he agreed with impression and plan. Pt was discharged in stable condition with orthopedic f/u. Return parameters discussed in detail, patient denies questions at this time. Disposition Clinical Impression: Lisfranc's sprain, Fracture of 3rd metatarsal Disposition: HOME SELF-CARE Condition: Good Instructions: Foot Fracture in Adults (ED) Additional Instructions: Please use medication as discussed. Please follow-up with orthopedic surgery in the next 24 hours for evaluation- absolutely no weight bearing on the left foot. Please return to emergency room if the symptoms increase or worsen or for any other concerns. Is patient prescribed a controlled substance at d/c from ED?: No Referrals: Judy Levy MD [Primary Care Provider] - 1-2 days Jose A Macias MD [STAFF PHYSICIAN] - 1-2 days Time of Disposition: 23:43
--- NOTE | 2018-02-04 23:25 | XR ---
EXAMINATION TYPE: XR foot complete LT DATE OF EXAM: 02/04/2018 COMPARISON: NONE HISTORY: Foot pain TECHNIQUE: 3 views FINDINGS: There is plantar calcaneal spurring. There is slight deformity of the head of the third met atarsal. Nondisplaced fracture is possible. The other metatarsals appear intact. Joint spaces are jennifer rly normal. IMPRESSION: Possible third metatarsal fracture on one view. Mild soft tissue swelling of the forefoot . Calcaneal spurring.
[2018-02-05 00:42] VITALS: BP 148/80; PULSE 100; RESP 18
== END 2018-02-05 00:15 | disposition home or self-care (01) ==
LOC: EC 22:06
DX: S92.335A Nondisplaced fracture of third metatarsal bone, left foot, initial encounter for closed fracture (principal); E11.9 Type 2 diabetes mellitus without complications; E78.5 Hyperlipidemia, unspecified; I10 Essential (primary) hypertension; F31.9 Bipolar disorder, unspecified; Z79.84 Long term (current) use of oral hypoglycemic drugs; Z79.899 Other long term (current) drug therapy; Z88.0 Allergy status to penicillin; Z88.1 Allergy status to other antibiotic agents; Z88.2 Allergy status to sulfonamides; Z88.5 Allergy status to narcotic agent; W19.XXXA Unspecified fall, initial encounter
CPT/HCPCS: 29515; 99283

== ENCOUNTER → 2018-02-18 | Outpatient (CLI) | payer OTHER ==
--- NOTE | 2018-02-18 11:51 | SFUN ---
SLEEP CENTER FOLLOW UP NOTE DATE OF SERVICE: 02/18/2018 A 47-year-old lady who has been followed in the Sleep Center to discuss results of polysomnogram and multiple sleep latency test. We discussed results of sleep study with patient and family. Sleep study did showed very minimal abnormalities of respiration with apnea-hypopnea index 4.1. Oxygen level was below normal only for 0.5 minutes. Subsequently, respiration rate is in normal range by today's criteria. Full length multiple sleep latency test consisted from 4 naps, which showed mean sleep latency 5.9 minutes and 4 sleep onset REM periods which indication for short sleep latency and possible narcolepsy because patient is on several medications and she was not able to stop medications before the test because of her psychiatric issues. Presently, patient is on treatment with Ritalin 20 mg in the morning. With this regimen, she feels better and not sleepy until about middle of the day, but then started to feel sleepy again. OTHER MEDICATIONS: Trazodone, Latuda, bisoprolol, hydrochlorothiazide, quinidine, Zoloft, omeprazole, Januvia, simvastatin, glimepiride, zolpidem, lorazepam. PHYSICAL EXAM: Patient in no distress. BP 126/80, HR 70, RR 16, height 5, 4, weight 219, body mass index 37.5, temperature 98.1. ABDOMEN: Slight obese. HEENT PERRLA, EOMI, evaluation of oropharynx showed tongue protrudes midline. Neck Supple, no JVD. Thyroid is not palpable. LUNGS Clear to percussion and to auscultation. Good air exchange. No wheezing or rhonchi. HEART S1, S2 regular. No murmurs, gallops, or rubs. EXTREMITIES No clubbing or cyanosis. TELEPHONE ORDER DISPATCHER Awake, alert, and oriented X3. Cranial nerves 2 to 7 intact. There is no fasciculation or atrophy. noted. No focal deficits observed. IMPRESSION: 1. No significant respiratory abnormalities by results of diagnostic polysomnogram. Multiple sleep latency test confirmed sleepiness with four sleep onset REM periods which may indicate narcolepsy. Differential diagnosis include sleepiness related to medications. The patient is on several medications. She was not able to stop medications before the multiple sleep latency test. 2. History of anxiety. 3. History of depression. 4. Hypertension. 5. Diabetes mellitus. 6. Obesity. 7. Hyperlipidemia. 8. Status post total hysterectomy. PLAN: 1. Patient will continue to use Ritalin. I would recommend to add additional dose of Ritalin possibly 10 mg at around 1 p.m. 2. Sleep hygiene with time in bed for at least 8 hours. 3. No driving if feeling any sleepiness. 4. Daytime naps permitted. 5. Losing weight. 6. Preferable position during the sleep on the side. Thank you very much for allowing me to participate in the management of your patient. Sincerely, Rene Wall MD, PhD, FAASM Diplomat of [place] [employer] [place] [employer] Managing Partner [employer] [place] of [facility] [place] MMODL / IJN: [id number] /
== END | disposition home or self-care (01) ==
LOC: SLEEP 10:20
PROVIDERS: ATTEND Internal Medicine
DX: R40.0 Somnolence (principal); F41.9 Anxiety disorder, unspecified; F32.9 Major depressive disorder, single episode, unspecified; I10 Essential (primary) hypertension; E66.9 Obesity, unspecified; E78.5 Hyperlipidemia, unspecified; Z90.710 Acquired absence of both cervix and uterus; Z79.899 Other long term (current) drug therapy; Z68.37 Body mass index [BMI] 37.0-37.9, adult

== ENCOUNTER 2018-09-12 22:20 | Inpatient (IN) | payer OTHER, MEDICARE ==
[2018-09-12] MEDS ORDERED: KETOROLAC 30 MG/ML 1 ML VIAL IVP STA (22:59)
[2018-09-12] MEDS ORDERED: SODIUM CHLORIDE 0.9% 1,000 ML IV STA (22:59)
[2018-09-12] MEDS ORDERED: ONDANSETRON 4 MG/2 ML VIAL IVP STA (22:59)
--- NOTE | 2018-09-12 23:21 | XR ---
EXAM: XR Abdomen, 1 View CLINICAL HISTORY: ITS.REASON XR Reason: abdominal pain TECHNIQUE: Frontal supine view of the abdomen/pelvis. COMPARISON: None FINDINGS: Hardware: None. Abdomen: Nonobstructive bowel gas pattern. No free air. Clip noted in the right pelvis. Bones: Mild degenerative changes of the hips. Soft tissues: Normal. Lower chest: Mild elevation of the right hemidiaphragm. IMPRESSION: No acute abnormality.
[2018-09-12 23:30] LABS: Anisocytosis Slight; Basophils % (A) 1 %; Eosinophils # (A) 0.1 k/uL (0-0.7); Eosinophils % (A) 2 %; HCT 42.1 % (34.0-46.0); HGB 13.1 gm/dL (11.4-16.0); Hypochromasia Moderate; Lymphocytes # (A) 1.4 k/uL (1.0-4.8); Lymphocytes % (A) 25 %; MCH 24.1 pg (25.0-35.0); MCHC 31.1 g/dL (31.0-37.0); MCV 77.5 fL (80.0-100.0); Mean Platelet Volume 7.8; Microcytosis Slight; Monocytes # (A) 0.3 k/uL (0-1.0); Monocytes % (A) 5 %; Neutrophils # (A) 3.7 k/uL (1.3-7.7); Neutrophils % (A) 66 %; Poikilocytosis Slight; RBC 5.44 m/uL (3.80-5.40); RDW 16.8 % (11.5-15.5); WBC 5.5 k/uL (3.8-10.6)
[2018-09-12 23:32] LABS: Appearance,Urine Cloudy (Clear); Bacteria,Urine Rare /hpf; Bilirubin,Urine 1+ (Negative); Blood,Urine Negative (Negative); Color,Urine Orange; Glucose,Urine (UA) 3+ (Negative); Hyaline Casts,Urine 3 /lpf (0-2); Ketones,Urine Negative (Negative); Leukocyte Esterase,Urine Moderate (Negative); Mucus,Urine Many /hpf; Nitrite,Urine Negative (Negative); Protein,Urine 1+ (Negative); RBC,Urine 2 /hpf (0-5); Specific Gravity,Urine 1.024 (1.001-1.035); Squamous Epithelial Cell,Urine 7 /hpf (0-4); WBC,Urine 5 /hpf (0-5)
[2018-09-12 23:42] LABS: ALT 15 U/L (9-52); AST 45 U/L (14-36); Albumin 3.4 g/dL (3.5-5.0); Alkaline Phosphatase 208 U/L (38-126); Amylase 41 U/L (30-110); Anion Gap 8 mmol/L; Blood Urea Nitrogen 7 mg/dL (7-17); Calcium 8.7 mg/dL (8.4-10.2); Carbon Dioxide 27 mmol/L (22-30); Chloride 99 mmol/L (98-107); Glucose 320 mg/dL (74-99); Lipase 311 U/L (23-300); Potassium 3.5 mmol/L (3.5-5.1); Sodium 134 mmol/L (137-145); Total Protein 7.8 g/dL (6.3-8.2)
[2018-09-13 00:02] LABS: Platelet Count 94 k/uL (150-450)
[2018-09-13] MEDS ORDERED: INSULIN ASPART (NovoLOG) 100 UNIT/ML VIAL SQ STA (00:46)
[2018-09-13] MEDS ORDERED: HYDROmorphone 1 MG/ML 1 ML SYRINGE IVP STA (00:48)
--- NOTE | 2018-09-13 01:25 | CT ---
EXAM: CT Abdomen and Pelvis With Intravenous Contrast CLINICAL HISTORY: ITS.REASON CT Reason: Pain TECHNIQUE: Axial computed tomography images of the abdomen and pelvis with intravenous contrast. CTDI is 36.27 mGy and DLP is 1684.8 mGy-cm. This CT exam was performed using one or more of the following dose reduction techniques: automated exposure control, adjustment of the mA and/or kV according to patient size, and/or use of iterative reconstruction technique. COMPARISON: CT abdomen/pelvis on 02/06/2016 FINDINGS: Liver: Hepatic steatosis. Nodular contour of the liver is suggestive of cirrhosis. No focal lesion. Spleen: Increased splenomegaly. No focal lesion. Gallbladder: Normal. No stones or biliary dilatation. Pancreas: Normal. No acute inflammation. No mass. Adrenal glands: Normal. No mass. Kidneys: Normal. No hydronephrosis or stone. No mass. Bowel: Normal appendix. No bowel obstruction or inflammation. Urinary bladder: Nonspecific mild prominence of the bladder wall which may be accentuated by underdistention and ascites. Reproductive organs: Prior hysterectomy. Muscles: No mass. Subcutaneous tissues: Small fat-containing umbilical hernia. Peritoneal space: Large amount of ascites. Lymph nodes: Nonspecific mildly prominent mesenteric and retroperitoneal lymph nodes which may be reactive. Vessels: Varices noted. Minimal atherosclerotic calcifications No aneurysm or dissection. Bones: Degenerative changes of the spine. No acute fracture or bony lesion. Lung bases: Mild bibasilar atelectasis. IMPRESSION: 1. Hepatic steatosis. Nodular contour of the liver is suggestive of cirrhosis. 2. Changes of portal hypertension including increased splenomegaly and large amount of ascites and varices. 3. Nonspecific mild prominence of the bladder wall which may be accentuated by underdistention and ascites. Please correlate with urinalysis if concerned for cystitis.
[2018-09-13 01:45] LABS: Glucose,Whole Blood 297 mg/dL (75-99)
[2018-09-13] MEDS ORDERED: ONDANSETRON 4 MG/2 ML VIAL IVP PRN (02:04)
[2018-09-13] MEDS ORDERED: NALOXONE 0.4 MG/ML 1 ML VIAL IV PRN (02:04)
--- NOTE | 2018-09-13 02:16 | ED ---
Abdominal Pain HPI - General Source: patient Mode of arrival: ambulatory Limitations: no limitations <Angelika Ruiz - Last Filed: 09/13/18 02:07> <Flakita Doe - Last Filed: 09/15/18 08:11> - General Chief Complaint: Abdominal Pain Stated Complaint: Abd Pain, Constipation Time Seen by Provider: 09/12/18 22:34 - History of Present Illness Initial Comments: 48 year-old female patient with past medical history significant for diabetes, hyperlipidemia, and hypertension presents to the emergency department today for evaluation of abdominal pain. Patient states she has been having abdominal discomfort for the last 2 weeks. Patient states she feels very bloated, that her abdomen is becoming larger. States that she has been nauseated with this and has had decreased appetite. She denies any fever or chills. States she thought maybe she was constipated so she did take Senokot which did produce a g ood bowel movement but did not change her symptoms. Patient states she has had section and oophorectomy in the past but denies any other abdominal surgeries. Patient denies any previous or current alcohol use. Denies any illicit drug use. Patient denies any recent rash, shortness breath, chest pain, back pain, numbness, tingling, dizziness, weakness, hematuria, dysuria, urinary urgency, urinary frequency, headache, visual changes, or any other complaints. (Angelika Ruiz) - Related Data Home Medications Medication Instructions Recorded Confirmed Bisoprolol-Hctz 10-6.25 mg [Ziac 1 tab PO HS 09/02/14 09/13/18 10-6.25 MG] Sertraline [Zoloft] 200 mg PO HS 09/02/14 09/13/18 Simvastatin [Zocor] 20 mg PO HS 09/02/14 09/13/18 Zolpidem [Ambien] 10 mg PO HS 09/02/14 09/13/18 cloNIDine HCL [Catapres] 0.1 mg PO BID 09/02/14 09/13/18 glyBURIDE/METFORMIN HCL 2 tab PO BID 09/02/14 09/13/18 [Glucovance 5-500 mg Tablet] Omeprazole 20 mg PO HS 12/29/16 09/13/18 LORazepam [Ativan] 1 mg PO HS PRN 02/04/18 09/13/18 ARIPiprazole [Abilify] 20 mg PO HS 09/13/18 09/13/18 traZODone HCL 100 mg PO HS 09/13/18 09/13/18 Allergies Allergy/AdvReac Type Severity Reaction Status Date / Time Penicillins Allergy Rash/Hives Verified 09/13/18 07:45 Sulfa (Sulfonamide Allergy Rash/Hives Verified 09/13/18 07:45 Antibiotics) erythromycin base AdvReac Abdominal Verified 09/13/18 07:45 Pain meperidine HCl [From Demerol] AdvReac Confusion Verified 09/13/18 07:45 Review of Systems ROS Other: All systems not noted in ROS Statement are negative. <Angelika Ruiz - Last Filed: 09/13/18 02:07> ROS Other: All systems not noted in ROS Statement are negative. <Flakita Doe - Last Filed: 09/15/18 08:11> ROS Statement: Those systems with pertinent positive or pertinent negative responses have been documented in the HPI. Past Medical History Past Medical History: Diabetes Mellitus, Hyperlipidemia, Hypertension History of Any Multi-Drug Resistant Organisms: MRSA Date of last positivie culture/infection: 01/2010 MDRO Source:: abdomen Past Surgical History: Section, Hysterectomy Additional Past Surgical History / Comment(s): ophrarectomy Past Anesthesia/Blood Transfusion Reactions: No Reported Reaction Past Psychological History: Bipolar, Depression Smoking Status: Never smoker Past Alcohol Use History: None Reported Past Drug Use History: None Reported - Past Family History Father Family Medical History: COPD, Hyperlipidemia, Hypertension, Renal Disease Mother Family Medical History: Hyperlipidemia, Hypertension <Angelika Ruiz - Last Filed: 09/13/18 02:07> General Exam Limitations: no limitations General appearance: alert, in no apparent distress, other (Physical well- developed, well-nourished adult female patient in no acute distress. Vital signs upon presentation are temperature 99.0F, pulse 107, respirations 18, blood pressure 125/64, pulse ox 97% on room air.) Eye exam: Present: normal appearance, PERRL, EOMI. Absent: scleral icterus, conjunctival injection, periorbital swelling ENT exam: Present: normal exam, normal oropharynx, mucous membranes moist Respiratory exam: Present: normal lung sounds bilaterally. Absent: respiratory distress, wheezes, rales, rhonchi, stridor Cardiovascular Exam: Present: regular rate, normal rhythm, normal heart sounds. Absent: systolic murmur, diastolic murmur, rubs, gallop, clicks GI/Abdominal exam: Present: soft, tenderness (Upper abdominal tenderness worse over the midepigastric and left upper quadrant regions), normal bowel sounds. Absent: distended, guarding, rebound, rigid Neurological exam: Present: alert, oriented X3, CN II-XII intact Psychiatric exam: Present: normal affect, normal mood Skin exam: Present: warm, dry, intact, normal color. Absent: rash <Angelika Ruiz - Last Filed: 09/13/18 02:07> Course Vital Signs 09/12/18 09/12/18 09/13/18 22:24 23:55 01:48 Temperature 99.0 F 98.9 F Pulse Rate 107 H 98 98 Respiratory 18 16 16 Rate Blood Pressure 125/64 116/69 114/62 O2 Sat by Pulse 97 92 L 90 L Oximetry 09/13/18 02:35 Temperature 98.8 F Pulse Rate 95 Respiratory 14 Rate Blood Pressure 110/73 O2 Sat by Pulse 95 Oximetry Medical Decision Making - Lab Data Result diagrams: 09/12/18 23:15 09/12/18 23:15 - Radiology Data Radiology results: report reviewed, image reviewed <Angelika Ruiz - Last Filed: 09/13/18 02:07> - Lab Data Result diagrams: 09/14/18 09:26 09/14/18 09:26 <Flakita Doe - Last Filed: 09/15/18 08:11> - Medical Decision Making 48-year-old female patient presents to the emergency department today for evaluation of abdominal distention, decreased appetite, and upper abdominal pain. Physical examination did reveal upper abdominal tenderness worse over the midepigastric and left upper quadrants. Labs reviewed and showed total bilirubin 2.0, AST 45, alk phos 208, albumin 3.4, and lipase 311. Urinalysis showed 1+ protein, 3+ glucose, 7 squamous epithelial cells, rare bacteria, 3 hyaline casts, many urine mucus. KUB x-ray showed overall nonobstructive bowel gas pattern. Patient reported slowly and quite a bit of discomfort so we did perform CT of the abdomen and pelvis, this did show evidence for nodular appearance of the liver concerning for cirrhosis, there is a large amount of ascites and concern for portal hypertension. I did discuss findings and results with the patient. We'll admit to the hospital for further evaluation by gastroenterology. Patient verbalizes understanding and agrees with this plan. (Angelika Ruiz) I was available for consultation in the emergency department. The history and physical exam were done by the midlevel provider. I was consulted for this patient's care. I reviewed the case with the midlevel provider and based on their presentation of the patient, I agree with the assessment, medical decision making and plan of care as documented. Chart was dictated using [employer] dictation software. Attempts were made to correct any dictation errors however some typographical errors may persist. (Flakita Doe) - Lab Data Lab Results 09/12/18 09/12/18 09/12/18 Range/Units 23:15 23:15 23:15 WBC 5.5 (3.8-10.6) k/uL RBC 5.44 H (3.80-5.40) m/uL Hgb 13.1 (11.4-16.0) gm/dL Hct 42.1 (34.0-46.0) % MCV 77.5 L (80.0-100.0) fL MCH 24.1 L (25.0-35.0) pg MCHC 31.1 (31.0-37.0) g/dL RDW 16.8 H (11.5-15.5) % Plt Count 94 L (150-450) k/uL Neutrophils % 66 % Lymphocytes % 25 % Monocytes % 5 % Eosinophils % 2 % Basophils % 1 % Neutrophils # 3.7 (1.3-7.7) k/uL Lymphocytes # 1.4 (1.0-4.8) k/uL Monocytes # 0.3 (0-1.0) k/uL Eosinophils # 0.1 (0-0.7) k/uL Basophils # 0.0 (0-0.2) k/uL Manual Slide Review Performed Hypochromasia Moderate Poikilocytosis Slight Anisocytosis Slight Microcytosis Slight Sodium 134 L (137-145) mmol/L Potassium 3.5 (3.5-5.1) mmol/L Chloride 99 (98-107) mmol/L Carbon Dioxide 27 (22-30) mmol/L Anion Gap 8 mmol/L BUN 7 (7-17) mg/dL Creatinine 0.39 L (0.52-1.04) mg/dL Est GFR (CKD-EPI)AfAm >90 (>60 ml/min/1.73 sqM) Est GFR (CKD-EPI)NonAf >90 (>60 ml/min/1.73 sqM) Glucose 320 H (74-99) mg/dL POC Glucose (mg/dL) (75-99) mg/dL POC Glu Information Technology Instructor ID Calcium 8.7 (8.4-10.2) mg/dL Total Bilirubin 2.0 H (0.2-1.3) mg/dL AST 45 H (14-36) U/L ALT 15 (9-52) U/L Alkaline Phosphatase 208 H (38-126) U/L Total Protein 7.8 (6.3-8.2) g/dL Albumin 3.4 L (3.5-5.0) g/dL Amylase 41 (30-110) U/L Lipase 311 H (23-300) U/L Urine Color [place] Urine Appearance Cloudy H (Clear) Urine pH 6.0 (5.0-8.0) Ur Specific [place] 1.024 (1.001-1.035) Urine Protein 1+ H (Negative) Urine Glucose (UA) 3+ H (Negative) Urine Ketones Negative (Negative) Urine Blood Negative (Negative) Urine Nitrite Negative (Negative) Urine Bilirubin 1+ H (Negative) Urine Urobilinogen 8.0 (<2.0) mg/dL Ur Leukocyte Esterase Moderate H (Negative) Urine RBC 2 (0-5) /hpf Urine WBC 5 (0-5) /hpf Ur Squamous Epith Cells 7 H (0-4) /hpf Urine Bacteria Rare H (None) /hpf Hyaline Casts 3 H (0-2) /lpf Urine Mucus Many H (None) /hpf 09/13/18 Range/Units 01:43 WBC (3.8-10.6) k/uL RBC (3.80-5.40) m/uL Hgb (11.4-16.0) gm/dL Hct (34.0-46.0) % MCV (80.0-100.0) fL MCH (25.0-35.0) pg MCHC (31.0-37.0) g/dL RDW (11.5-15.5) % Plt Count (150-450) k/uL Neutrophils % % Lymphocytes % % Monocytes % % Eosinophils % % Basophils % % Neutrophils # (1.3-7.7) k/uL Lymphocytes # (1.0-4.8) k/uL Monocytes # (0-1.0) k/uL Eosinophils # (0-0.7) k/uL Basophils # (0-0.2) k/uL Manual Slide Review Hypochromasia Poikilocytosis Anisocytosis Microcytosis Sodium (137-145) mmol/L Potassium (3.5-5.1) mmol/L Chloride (98-107) mmol/L Carbon Dioxide (22-30) mmol/L Anion Gap mmol/L BUN (7-17) mg/dL Creatinine (0.52-1.04) mg/dL Est GFR (CKD-EPI)AfAm (>60 ml/min/1.73 sqM) Est GFR (CKD-EPI)NonAf (>60 ml/min/1.73 sqM) Glucose (74-99) mg/dL POC Glucose (mg/dL) 297 H (75-99) mg/dL POC Glu Information Technology Instructor ID Saritha, Cara Calcium (8.4-10.2) mg/dL Total Bilirubin (0.2-1.3) mg/dL AST (14-36) U/L ALT (9-52) U/L Alkaline Phosphatase (38-126) U/L Total Protein (6.3-8.2) g/dL Albumin (3.5-5.0) g/dL Amylase (30-110) U/L Lipase (23-300) U/L Urine Color Urine Appearance (Clear) Urine pH (5.0-8.0) Ur Specific [place] (1.001-1.035) Urine Protein (Negative) Urine Glucose (UA) (Negative) Urine Ketones (Negative) Urine Blood (Negative) Urine Nitrite (Negative) Urine Bilirubin (Negative) Urine Urobilinogen (<2.0) mg/dL Ur Leukocyte Esterase (Negative) Urine RBC (0-5) /hpf Urine WBC (0-5) /hpf Ur Squamous Epith Cells (0-4) /hpf Urine Bacteria (None) /hpf Hyaline Casts (0-2) /lpf Urine Mucus (None) /hpf - Radiology Data CT abdomen and pelvis with contrast was obtained. Report reviewed in its entirety. Impression by Dr. Cifuentes shows hepatic steatosis, nodular contour of the liver suggestive of cirrhosis. Changes of portal hypertension including increased enema megaly and large amount of ascites and varices. Nonspecific mild prominence the bladder wall which may be accentuated cell efficiency supervisor distention and ascites. Please correlate with urinalysis. One view x-ray of the abdomen is obtained. Report was reviewed in its entirety. Impression by Dr. Cifuentes shows no acute abnormality. (Angelika Ruiz) Disposition Decision to Admit Reason: Admit from EC Decision Date: 09/13/18 Decision Time: 02:15 <Angelika Ruiz - Last Filed: 09/13/18 02:07> <Flakita Doe - Last Filed: 09/15/18 08:11> Clinical Impression: Abdominal pain, Ascites, Portal hypertension Disposition: ADMITTED IP TO THIS [facility] Condition: Serious
[2018-09-13] MEDS: SODIUM CHLORIDE 0.9% 1,000 ML IV SCH ×2 (02:28→21:57)
[2018-09-13 03:28] VITALS: BMI 39.3
[2018-09-13] MEDS: HYDROmorphone 0.5 MG/0.5 ML SYRINGE IVP PRN ×5 (04:16→22:02)
[2018-09-13 07:22] LABS: Glucose,Whole Blood 200 mg/dL (75-99)
[2018-09-13] MEDS: INSULIN ASPART (NovoLOG) 100 UNIT/ML VIAL SQ SCH ×4 (07:52→21:44)
[2018-09-13] MEDS ORDERED: LORazepam 1 MG TAB PO PRN (10:40)
[2018-09-13 11:15] LABS: INR 1.2 (<1.2); Prothrombin Time 12.6 sec (9.0-12.0)
[2018-09-13 11:59] LABS: Glucose,Whole Blood 221 mg/dL (75-99)
--- NOTE | 2018-09-13 16:28 | US ---
EXAMINATION TYPE: US paracentesis abd w/image DATE OF EXAM: 09/13/2018 COMPARISON: NONE HISTORY: Ascites. PROCEDURE: Maximal barrier technique was utilized. The skin overlying a suitable pocket of fluid was localized with ultrasound and the overlying skin was prepped and draped. Ultrasound was utilized with sterile technique. Lidocaine was used for local anesthesia and a skin chantel made with a scalpel. Catheter was advanced under direct ultrasound guidance into a suitable pocket of fluid and approximately 3.2 liter s of serous fluid were removed. Catheter was withdrawn and hemostasis achieved. There is no immedia te complication; the patient is discharged in stable condition. IMPRESSION: STATUS POST ULTRASOUND GUIDED PARACENTESIS FOR PALLIATION AND DIAGNOSTIC REASON OF ASCIT ES. THIS PROCEDURE WAS PERFORMED BY THE UNDERSIGNED. Specimen sent for laboratory analysis.
[2018-09-13 17:24] LABS: Glucose,Whole Blood 143 mg/dL (75-99)
[2018-09-13 20:44] LABS: Glucose,Whole Blood 280 mg/dL (75-99)
--- NOTE | 2018-09-13 21:26 | HP ---
HISTORY AND PHYSICAL DATE OF SERVICE: 09/13/2018 CHIEF COMPLAINTS: Abdominal discomfort. HISTORY OF PRESENT ILLNESS: This 48-year-old woman with a past medical history of multiple medical problems including history of diabetes, hypertension, hyperlipidemia, history of MRSA, being followed by Dr. Levy in the outpatient setting, also had history of bipolar depression. The patient is also complaining of abdominal pain, discomfort increasing for the last several weeks. The patient also had constipation. The patient feels bloated and patient came to [facility] and was admitted for further evaluation and treatment. The initial evaluation has been noted. Pressure was elevated and patient also had multiple lab abnormalities including elevated bilirubin and the patient also underwent abdominal and pelvis CAT scan which showed significant ascites, splenomegaly, and signs of liver cirrhosis. There is no history of hepatitis. No history of jaundice. No history of any alcohol intake in this patient at this time. There is no history of fever, rigors or chills. No history of headache, loss of consciousness or seizures. PAST MEDICAL HISTORY: History of diabetes, hypertension, hyperlipidemia, history of MRSA, history of hysterectomy. MEDICATIONS: Prior to admission include home medications are: 1. Ziac 10/6.5 mg p.o. q.h.s. 2. Abilify 20 mg q.h.s. 3. Trazodone 100 mg q.h.s. 4. Glucovance 5/500 mg 2 tablets b.i.d. 5. Catapres 0.1 p.o. b.i.d. 6. Ambien 20 mg p.o. q.h.s. 7. Zocor 20 mg q.h.s. 8. Zoloft 200 mg q.h.s. 9. Omeprazole 20 mg q.h.s. 10.Ativan 0.1 mg p.o. q.h.s. p.r.n. ALLERGIES: PENICILLIN, SULFA, AZITHROMYCIN, FAMILY HISTORY: History of COPD, hypertension, hyperlipidemia, renal disease in the family. SOCIAL HISTORY: No history of smoking. No history of alcohol intake. REVIEW OF SYSTEMS: ENT: No diminished vision. No diminished hearing. CARDIOVASCULAR: No angina or palpitations. RESPIRATORY: As mentioned earlier. GI mentioned earlier. : As mentioned earlier. NERVOUS SYSTEM: No numbness or weakness. ALLERGY/IMMUNOLOGY: No asthma or hayfever. MUSCULOSKELETAL: As mentioned earlier. HEMATOLOGY/ONCOLOGY: No history of anemia. ENDOCRINE: History of diabetes. No history of hypothyroidism. CONSTITUTIONAL: As mentioned earlier. DERMATOLOGY: Negative. RHEUMATOLOGY: Negative. PSYCHIATRY: As mentioned earlier. PHYSICAL EXAMINATION: GENERAL: Alert and oriented times three. VITAL SIGNS: Pulse is 89, blood pressure 110/76, respiratory rate 12, temperature is normal. Pulse ox 92% on 2 L., HEENT is conjunctivae normal. Oral mucosa moist. NECK is no jugular venous distention. No carotid bruit. No lymph node enlargement. CARDIOVASCULAR: S1-S2 muffled. RESPIRATORY: Breath sounds diminished in the bases. A few scattered rhonchi. No crackles. ABDOMEN: Soft. Mild diffuse distention. Flanks are dull. Otherwise no tenderness. No mass palpable. No hepatosplenomegaly palpated. Abdomen obese also. Bowel sounds diminished. No bruit. LEGS: No edema. No swelling. NERVOUS SYSTEM: Higher functions as mentioned earlier. Moves all 4 limbs. No focal motor or sensory deficits. LYMPHATICS: No lymph nodes palpable in the neck, axillae or groin. JOINTS: No active deforming arthropathy. LABS: At this time, shows WBC 5.2, hemoglobin 13.9, MCV 77.2, platelets are 94. Sodium 134, total bilirubin is 2, and AST is 45. ASSESSMENT: 1. Abdominal pain, distention of ascites with possible cirrhosis of the liver. Rule out spontaneous bacterial peritonitis. 2. Increased bilirubin. 3. Rule out urinary tract infection. 4. Diabetes mellitus type 2. 5. Hyponatremia. 6. Microcytosis. 7. Obesity with body mass of 39.3. 8. History of diabetes type 2. 9. Hypertension. 10.Hyperlipidemia. 11.History of Methicillin-resistant Staphylococcus aureus. 12.History of section. 13.History of bipolar depression. 14.FULL CODE. RECOMMENDATIONS AND DISCUSSION: This 48-year-old woman who presented with multiple complex medical issues, we will monitor the patient closely, continue the current medications, management and symptomatic treatment. We will initiate slow diuresis and also I would also recommend interventional radiology for ascitic aspiration in the fluid to be sent for culture, protein, amylase, and as well as cytology. Other than that, I would also get a GI consultation. The prognosis guarded because of multiple complex medical issues. Further recommendations to follow. A copy of dictation being forwarded to Dr. Leyv who is the primary physician. Overall prognosis guarded. Exact etiology of ascites unknown at this time. The patient does not have any history of any alcohol intake. I would recommend acute hepatitis panel and empiric antibiotics also will be given. A copy of dictation being followed by Dr. Levy who is the primary physician. We will monitor blood sugars also. MMODL / IJN: [id number] / MTDD
--- NOTE | 2018-09-13 21:29 | P.CONS ---
History of Present Illness - Reason for Consult Consult date: 09/13/18 Cirrhosis Requesting physician: Constantino Obando - Chief Complaint Abdominal pain - History of Present Illness 48-year-old female with a past medical history significant for diabetes mellitus, hyperlipidemia and hypertension who initially presented to the emergency department for evaluation of abdominal pain. The patient reports 2 weeks of increasing abdominal distention and pain. She reports diffuse discomfort across her abdomen and the sensation of feeling bloated. The patient was concerned that her symptoms are secondary to constipation and used over-the- counter Senokot with no relief of her symptoms. She also reported associated symptoms of nausea, decreased appetite with no vomiting reported. The patient had a computed tomography scan in evaluation which was significant for hepatic steatosis with a nodular contour of the liver suggesting cirrhosis, changes of portal hypertension including splenomegaly and a large amount of ascites and varices as well as a nonspecific mild prominence of the bladder wall. On questioning the patient denies any previous history of liver disease. She denies any heavy alcohol use or past history of alcohol abuse. The patient denies a history of viral hepatitis. She does report a history of cirrhosis in her maternal grandfather but reports that this was secondary to alcohol use. She denies any prior episodes of fluid overload, GI bleeding, or confusion. The patient has never had upper endoscopy. She does believe that she had a colonoscopy approximately 10 years ago at which time she was diagnosed with hemorrhoids. Laboratory evaluation was significant for a hemoglobin of 13.1, platelet count of 94,000, INR 1.2, total bilirubin 2, alkaline phosphatase 208, AST 45, ALT 15, amylase 41, lipase 311, creatinine 0.39 and albumin 3.4. Review of Systems REVIEW OF SYSTEMS: CONSTITUTIONAL: Denies any fevers, chills, weight change or fatigue. CARDIOVASCULAR: Denies any chest pain, palpitations high or low blood pressures RESPIRATORY: Denies any shortness of breath, hemoptysis or cough. GENITOURINARY: No dysuria or hematuria. MUSCULOSKELETAL: No weakness reported. SKIN: Denies any new rashes or lesions, jaundice or pallor. PSYCHIATRIC: History of depression or anxiety. NEUROLOGY: Denies headache, denies any new focal deficits. EARS/NOSE/THROAT: No recent hearing change, congestion, nasal discharge or sore throat. EYES: No pain in eyes, discharge or change in vision. GASTROINTESTINAL: As per HPI. Past Medical History Past Medical History: Diabetes Mellitus, Hyperlipidemia, Hypertension History of Any Multi-Drug Resistant Organisms: MRSA Year Discovered:: 01/2010 MDRO Source:: abdomen Past Surgical History: Section, Hysterectomy Additional Past Surgical History / Comment(s): ophrarectomy Past Anesthesia/Blood Transfusion Reactions: No Reported Reaction Past Psychological History: Bipolar, Depression Smoking Status: Never smoker Past Alcohol Use History: None Reported Past Drug Use History: None Reported - Past Family History Father Family Medical History: COPD, Hyperlipidemia, Hypertension, Renal Disease Mother Family Medical History: Hyperlipidemia, Hypertension Medications and Allergies Home Medications Medication Instructions Recorded Confirmed Type Bisoprolol-Hctz 10-6.25 mg [Ziac 1 tab PO HS 09/02/14 09/13/18 History 10-6.25 MG] Sertraline [Zoloft] 200 mg PO HS 09/02/14 09/13/18 History Simvastatin [Zocor] 20 mg PO HS 09/02/14 09/13/18 History Zolpidem [Ambien] 10 mg PO HS 09/02/14 09/13/18 History cloNIDine HCL [Catapres] 0.1 mg PO BID 09/02/14 09/13/18 History glyBURIDE/METFORMIN HCL 2 tab PO BID 09/02/14 09/13/18 History [Glucovance 5-500 mg Tablet] Omeprazole 20 mg PO HS 12/29/16 09/13/18 History LORazepam [Ativan] 1 mg PO HS PRN 02/04/18 09/13/18 History ARIPiprazole [Abilify] 20 mg PO HS 09/13/18 09/13/18 History traZODone HCL 100 mg PO HS 09/13/18 09/13/18 History Allergies Allergy/AdvReac Type Severity Reaction Status Date / Time Penicillins Allergy Rash/Hives Verified 09/13/18 07:45 Sulfa (Sulfonamide Allergy Rash/Hives Verified 09/13/18 07:45 Antibiotics) erythromycin base AdvReac Abdominal Verified 09/13/18 07:45 Pain meperidine HCl [From Demerol] AdvReac Confusion Verified 09/13/18 07:45 Physical Exam Vitals: Vital Signs Temp Pulse Pulse Pulse Resp BP BP 09/13/18 18:29 89 09/13/18 18:14 98 09/13/18 17:59 93 09/13/18 17:44 86 09/13/18 17:29 89 09/13/18 17:14 86 09/13/18 16:59 92 09/13/18 16:44 87 09/13/18 16:29 91 09/13/18 16:11 93 16 110/61 09/13/18 15:57 92 16 115/63 09/13/18 15:50 92 14 117/66 09/13/18 15:40 90 16 115/73 09/13/18 15:33 93 16 118/75 09/13/18 14:56 97.8 F 91 14 116/67 09/13/18 13:00 97.3 F L 94 16 09/13/18 11:00 94 16 09/13/18 06:41 97.7 F 85 18 09/13/18 03:28 98.4 F 90 18 09/13/18 02:35 98.8 F 95 14 110/73 09/13/18 01:48 98.9 F 98 16 114/62 09/12/18 23:55 98 16 116/69 09/12/18 22:24 99.0 F 107 H 18 125/64 BP BP Pulse Ox 09/13/18 18:29 126/76 93 L 09/13/18 18:14 93 L 09/13/18 17:59 134/91 91 L 09/13/18 17:44 112/80 91 L 09/13/18 17:29 115/80 92 L 09/13/18 17:14 113/80 92 L 09/13/18 16:59 111/76 93 L 09/13/18 16:44 109/76 92 L 09/13/18 16:29 108/72 95 09/13/18 16:11 94 L 09/13/18 15:57 94 L 09/13/18 15:50 94 L 09/13/18 15:40 09/13/18 15:33 94 L 09/13/18 14:56 94 L 09/13/18 13:00 99/61 92 L 09/13/18 11:00 09/13/18 06:41 110/75 93 L 09/13/18 03:28 103/68 94 L 09/13/18 02:35 95 09/13/18 01:48 90 L 09/12/18 23:55 92 L 09/12/18 22:24 97 Intake and Output 09/13/18 09/13/18 09/13/18 06:59 14:59 22:59 Intake Total 0 Balance 0 Intake: Oral 0 Other: Voiding Method Toilet Toilet # Voids 0 2 0 On physical examination, patient appears comfortable in no apparent distress. HEAD: Normocephalic, atraumatic. EYES: No scleral icterus. No conjunctival injection. MOUTH: No lesions, tongue midline. NECK: Trachea midline, no gross abnormalities. CHEST: Clear to auscultation with no wheezing or rhonchi appreciated. HEART: Regular rate and rhythm. ABDOMEN: Soft, obese and distended with positive fluid wave. Bowel sounds are positive. No organomegaly. No guarding or rigidity. EXTREMITIES: Bilateral pedal edema. SKIN: No rashes, no jaundice. NEUROLOGIC: Alert and oriented x3. No asterixis noted. No focal deficits. Results CBC & Chem 7: 09/12/18 23:15 09/12/18 23:15 Labs: Abnormal Lab Results - Last 24 Hours (Table) 09/12/18 09/12/18 09/12/18 Range/Units 23:15 23:15 23:15 RBC 5.44 H (3.80-5.40) m/uL MCV 77.5 L (80.0-100.0) fL MCH 24.1 L (25.0-35.0) pg RDW 16.8 H (11.5-15.5) % Plt Count 94 L (150-450) k/uL PT (9.0-12.0) sec INR (<1.2) Sodium 134 L (137-145) mmol/L Creatinine 0.39 L (0.52-1.04) mg/dL Glucose 320 H (74-99) mg/dL POC Glucose (mg/dL) (75-99) mg/dL Total Bilirubin 2.0 H (0.2-1.3) mg/dL AST 45 H (14-36) U/L Alkaline Phosphatase 208 H (38-126) U/L Albumin 3.4 L (3.5-5.0) g/dL Lipase 311 H (23-300) U/L Urine Appearance Cloudy H (Clear) Urine Protein 1+ H (Negative) Urine Glucose (UA) 3+ H (Negative) Urine Bilirubin 1+ H (Negative) Ur Leukocyte Esterase Moderate H (Negative) Ur Squamous Epith Cells 7 H (0-4) /hpf Urine Bacteria Rare H (None) /hpf Hyaline Casts 3 H (0-2) /lpf Urine Mucus Many H (None) /hpf 09/13/18 09/13/18 09/13/18 Range/Units 01:43 07:19 10:51 RBC (3.80-5.40) m/uL MCV (80.0-100.0) fL MCH (25.0-35.0) pg RDW (11.5-15.5) % Plt Count (150-450) k/uL PT 12.6 H (9.0-12.0) sec INR 1.2 H (<1.2) Sodium (137-145) mmol/L Creatinine (0.52-1.04) mg/dL Glucose (74-99) mg/dL POC Glucose (mg/dL) 297 H 200 H (75-99) mg/dL Total Bilirubin (0.2-1.3) mg/dL AST (14-36) U/L Alkaline Phosphatase (38-126) U/L Albumin (3.5-5.0) g/dL Lipase (23-300) U/L Urine Appearance (Clear) Urine Protein (Negative) Urine Glucose (UA) (Negative) Urine Bilirubin (Negative) Ur Leukocyte Esterase (Negative) Ur Squamous Epith Cells (0-4) /hpf Urine Bacteria (None) /hpf Hyaline Casts (0-2) /lpf Urine Mucus (None) /hpf 09/13/18 09/13/18 09/13/18 Range/Units 11:54 16:54 20:42 RBC (3.80-5.40) m/uL MCV (80.0-100.0) fL MCH (25.0-35.0) pg RDW (11.5-15.5) % Plt Count (150-450) k/uL PT (9.0-12.0) sec INR (<1.2) Sodium (137-145) mmol/L Creatinine (0.52-1.04) mg/dL Glucose (74-99) mg/dL POC Glucose (mg/dL) 221 H 143 H 280 H (75-99) mg/dL Total Bilirubin (0.2-1.3) mg/dL AST (14-36) U/L Alkaline Phosphatase (38-126) U/L Albumin (3.5-5.0) g/dL Lipase (23-300) U/L Urine Appearance (Clear) Urine Protein (Negative) Urine Glucose (UA) (Negative) Urine Bilirubin (Negative) Ur Leukocyte Esterase (Negative) Ur Squamous Epith Cells (0-4) /hpf Urine Bacteria (None) /hpf Hyaline Casts (0-2) /lpf Urine Mucus (None) /hpf CT scan - abdomen: report reviewed (computed tomography scan in evaluation which was significant for hepatic steatosis with a nodular contour of the liver suggesting cirrhosis, changes of portal hypertension including splenomegaly and a large amount of ascites and varices as well as a nonspecific mild prominence o f the bladder wall) Assessment and Plan (1) Elevated liver enzymes Narrative/Plan: 48-year-old female with medical history significant for hyperlipidemia, diabetes mellitus and hypertension who presented to the hospital due to increasing abdominal distention and pain. Computed tomography scan was performed with findings suggestive of hepatic steatosis, a nodular liver, portal hypertension with splenomegaly and varices. The patient denies any prior history of liver disease, viral hepatitis, or alcohol abuse. She denies any prior episodes of upper GI bleeding, encephalopathy or ascites are to her current presentation. She is status post paracentesis with 3.2 L of ascitic fluid removed. Suspicion is for decompensated cirrhosis in the setting of metabolic syndrome and fatty liver disease, with plans for full serology to rule out other etiology of liver disease. Current Visit: Yes Status: Acute Code(s): R74.8 - ABNORMAL LEVELS OF OTHER SERUM ENZYMES SNOMED Code(s): 197116807 (2) Abdominal pain Current Visit: Yes Status: Acute Code(s): R10.9 - UNSPECIFIED ABDOMINAL PAIN SNOMED Code(s): 67252682 (3) Ascites Current Visit: Yes Status: Acute Code(s): R18.8 - OTHER ASCITES SNOMED Code(s): 129927100 (4) Portal hypertension Current Visit: Yes Status: Acute Code(s): K76.6 - PORTAL HYPERTENSION SNOMED Code(s): 88123729 Plan: Supportive care Paracentesis performed, fluid studies pending Sodium restricted diet We'll initiate diuresis with Aldactone 25 mg twice a day and Lasix 20 mg twice a day, should be titrated for appropriate diuresis Continue to monitor liver enzymes, CBC, INR and BMP Full serologic workup ordered Patient will need continued follow-up after discharge with HCC screening, variceal screening and continue titration of her medications Thank you for allowing us to participate in the care of the patient we will continue to follow
[2018-09-13] MEDS: PANTOPRAZOLE 40 MG TABLET PO SCH (21:42)
[2018-09-13] MEDS: SERTRALINE 100 MG TAB PO SCH (21:42)
[2018-09-13] MEDS: ATORVASTATIN 10 MG TAB PO SCH (21:42)
[2018-09-13] MEDS: ZOLPIDEM 10 MG TAB PO SCH (21:42)
[2018-09-13] MEDS: glipiZIDE 10 MG TAB PO SCH (21:43)
[2018-09-13] MEDS: traZODone HCL 100 MG TAB PO SCH (21:43)
[2018-09-13] MEDS: metFORMIN 500 MG TAB PO SCH (21:43)
[2018-09-13] MEDS: cloNIDine HCL 0.1 MG TAB PO SCH (21:43)
[2018-09-13] MEDS: BISOPROLOL-HCTZ 10-6.25 MG 1 EACH TAB PO SCH (21:53)
[2018-09-13] MEDS: SPIRONOLACTONE 25 MG TAB PO SCH (21:57)
[2018-09-14 07:06] LABS: Glucose,Whole Blood 140 mg/dL (75-99)
[2018-09-14] MEDS: SPIRONOLACTONE 25 MG TAB PO SCH ×2 (07:13→20:26)
[2018-09-14] MEDS: glipiZIDE 10 MG TAB PO SCH ×2 (07:13→20:26)
[2018-09-14] MEDS: metFORMIN 500 MG TAB PO SCH ×2 (07:13→20:26)
[2018-09-14] MEDS: INSULIN ASPART (NovoLOG) 100 UNIT/ML VIAL SQ SCH ×4 (07:14→20:35)
[2018-09-14] MEDS: cloNIDine HCL 0.1 MG TAB PO SCH ×2 (07:14→20:26)
[2018-09-14] MEDS: HYDROmorphone 0.5 MG/0.5 ML SYRINGE IVP PRN ×4 (07:15→20:39)
[2018-09-14] MEDS ORDERED: FUROSEMIDE 20 MG TAB PO SCH (09:00)
[2018-09-14 09:55] LABS: Anisocytosis Slight; Basophils % (A) 1 %; Eosinophils # (A) 0.1 k/uL (0-0.7); Eosinophils % (A) 3 %; HCT 36.2 % (34.0-46.0); HGB 11.1 gm/dL (11.4-16.0); Hypochromasia Marked; Lymphocytes % (A) 32 %; MCH 24.4 pg (25.0-35.0); MCHC 30.6 g/dL (31.0-37.0); MCV 79.7 fL (80.0-100.0); Mean Platelet Volume 7.6; Monocytes # (A) 0.2 k/uL (0-1.0); Monocytes % (A) 7 %; Neutrophils # (A) 1.7 k/uL (1.3-7.7); Neutrophils % (A) 56 %; Poikilocytosis Slight; RBC 4.55 m/uL (3.80-5.40); RDW 16.4 % (11.5-15.5)
[2018-09-14 09:59] LABS: Platelet Count 60 k/uL (150-450)
[2018-09-14 10:10] LABS: ALT 24 U/L (9-52); AST 64 U/L (14-36); Albumin 2.5 g/dL (3.5-5.0); Alkaline Phosphatase 147 U/L (38-126); Anion Gap 3 mmol/L; Bilirubin, Delta 0.7 mg/dL (0.0-0.2); Bilirubin,Unconjugated 0.8 mg/dL (0.0-1.1); Blood Urea Nitrogen 3 mg/dL (7-17); Calcium 7.9 mg/dL (8.4-10.2); Carbon Dioxide 31 mmol/L (22-30); Chloride 103 mmol/L (98-107); Glucose 176 mg/dL (74-99); Lipase 239 U/L (23-300); Potassium 3.4 mmol/L (3.5-5.1); Sodium 137 mmol/L (137-145); Total Bilirubin 1.5 mg/dL (0.2-1.3); Total Protein 6.1 g/dL (6.3-8.2)
--- NOTE | 2018-09-14 10:12 | P.PN ---
Subjective Progress Note Date: 09/14/18 Principal diagnosis: Cirrhosis ascites Status post paracentesis yesterday 3.2 L removed. Afebrile. White count 3.0. Hemoglobin 11.1 platelets 60,000. Ammonia 69. Receiving Lasix 20 mg twice daily. Aldactone 25 mg twice daily. Ascitic fluid albumin less than 1. No changes in mentation. CMP pending. Objective - Vital Signs Vital signs: Vital Signs Temp 98.8 F 09/14/18 06:09 Pulse 96 09/14/18 06:09 Resp 22 09/14/18 06:09 BP 105/70 09/14/18 06:09 Pulse Ox 93 L 09/14/18 06:09 Intake & Output 09/13/18 09/14/18 09/14/18 18:59 06:59 18:59 Other: Voiding Method Toilet Toilet Toilet # Voids 0 2 # Bowel Movements 0 - Exam General appearance: The patient is alert, oriented, in no acute distress. HET: Head is normocephalic and atraumatic. Pupils are equal and reactive. Oropharynx is clear without lesions. Neck: Supple without lymphadenopathy. Trachea midline. Heart: S1 S2. Regular rate and rhythm. Lungs: No crackles or wheezes are heard. Abdomen: Soft, obese nontender, nondistended with bowel sounds. No peritoneal signs. No palpable organomegaly or masses. Extremities: Normal skin color and turgor. No cyanosis, rash, ulceration, clubbing, or edema. Radial and pedal pulses are 2/4 bilaterally. Neurological: No focal deficits. Strength and sensation are grossly intact. No asterixis. - Labs CBC & Chem 7: 09/14/18 09:26 09/12/18 23:15 Labs: Abnormal Lab Results - Last 24 Hours (Table) 09/13/18 09/13/18 09/13/18 Range/Units 10:51 11:54 16:54 WBC (3.8-10.6) k/uL Hgb (11.4-16.0) gm/dL MCV (80.0-100.0) fL MCH (25.0-35.0) pg MCHC (31.0-37.0) g/dL RDW (11.5-15.5) % Plt Count (150-450) k/uL PT 12.6 H (9.0-12.0) sec INR 1.2 H (<1.2) POC Glucose (mg/dL) 221 H 143 H (75-99) mg/dL Ammonia (<30) umol/L 09/13/18 09/14/18 09/14/18 Range/Units 20:42 06:53 09:26 WBC 3.0 L (3.8-10.6) k/uL Hgb 11.1 L (11.4-16.0) gm/dL MCV 79.7 L (80.0-100.0) fL MCH 24.4 L (25.0-35.0) pg MCHC 30.6 L (31.0-37.0) g/dL RDW 16.4 H (11.5-15.5) % Plt Count 60 L (150-450) k/uL PT (9.0-12.0) sec INR (<1.2) POC Glucose (mg/dL) 280 H 140 H (75-99) mg/dL Ammonia (<30) umol/L 09/14/18 Range/Units 09:26 WBC (3.8-10.6) k/uL Hgb (11.4-16.0) gm/dL MCV (80.0-100.0) fL MCH (25.0-35.0) pg MCHC (31.0-37.0) g/dL RDW (11.5-15.5) % Plt Count (150-450) k/uL PT (9.0-12.0) sec INR (<1.2) POC Glucose (mg/dL) (75-99) mg/dL Ammonia 69 H (<30) umol/L Microbiology - Last 24 Hours (Table) 09/13/18 15:33 Gram Stain - Preliminary Paracentesis Fluid Body Fluid Culture - Preliminary 09/13/18 19:40 Urine Culture - Preliminary Urine,Voided Assessment and Plan (1) Elevated liver enzymes Narrative/Plan: History of hyperlipidemia diabetes hypertension and obesity possible chronic liver disease possible nonalcoholic fatty liver disease induced cirrhosis. Current Visit: Yes Status: Acute Code(s): R74.8 - ABNORMAL LEVELS OF OTHER SERUM ENZYMES SNOMED Code(s): 489165079 (2) Hyperammonemia Current Visit: Yes Status: Acute Code(s): E72.20 - DISORDER OF UREA CYCLE METABOLISM, UNSPECIFIED SNOMED Code(s): 8855986 (3) Abdominal pain Current Visit: Yes Status: Acute Code(s): R10.9 - UNSPECIFIED ABDOMINAL PAIN SNOMED Code(s): 88045301 (4) Ascites Current Visit: Yes Status: Acute Code(s): R18.8 - OTHER ASCITES SNOMED Code(s): 346324060 (5) Portal hypertension Current Visit: Yes Status: Acute Code(s): K76.6 - PORTAL HYPERTENSION SNOMED Code(s): 23971509 Plan: 1. Lactulose 20 g 3 times a day titrated 3-4 BMs 24 hours. Daily monitoring of CBC CMP ammonia. Fluid ascitic analysis pending. Continue with cardiac diet. Patient will need continued follow-up after discharge with HCC screening variceal screening and continue titration of her medications. Full serologic workup for chronic liver disease pending. Assessment and plan a care discussed with Dr. Read
[2018-09-14] MEDS ORDERED: Potassium Replacement Protocol 1 EACH MISC MISCELLANE PRN (10:19)
[2018-09-14] MEDS ORDERED: POTASSIUM CHLORIDE ER 20 MEQ TAB.ER PO STA (10:19)
[2018-09-14 10:26] LABS: INR 1.2 (<1.2); Prothrombin Time 12.4 sec (9.0-12.0)
[2018-09-14] MEDS: LACTULOSE 20 GM/30 ML CUP PO SCH ×3 (10:28→20:37)
[2018-09-14 12:32] LABS: Glucose,Whole Blood 187 mg/dL (75-99)
--- NOTE | 2018-09-14 12:32 | PN ---
PROGRESS NOTE DATE OF SERVICE: 09/14/2018 This 48-year-old woman was admitted abdominal pain and ascites also had multiple findings on the CAT scan showing splenomegaly, hepatic cirrhosis was suspected. The patient had abdominal paracentesis of 3.2 L jame colored fluid at this time, which showed low protein. Gastroenterology seen the patient suspected chronic liver disease at this time. The patient was started on a small dose of diuretics also. There is no history of hepatitis or no history alcohol intake previously. The possibility of nonalcoholic fatty liver disease also being considered as possibility. Cytology is also pending. PAST MEDICAL HISTORY: Reviewed. REVIEW OF SYSTEMS: CARDIOVASCULAR SYSTEM: No angina. RESPIRATORY SYSTEM: As mentioned earlier. GI: As mentioned earlier. : No dysuria. NERVOUS SYSTEM: No numbness or weakness. MEDICATIONS: Current medications are reviewed and include: 1. Abilify 20 mg q.h.s. 2. Lipitor 10 mg q.h.s. 3. Ziac 10/6.25 mg p.o. q.h.s. 4. Rocephin 1 gram daily. 5. Catapres 0.1 p.o. b.i.d. 6. Lasix 40 mg p.o. b.i.d. 7. Glucotrol 20 mg p.o. b.i.d. 8. Dilaudid 0.5 mg q.3 p.r.n. 9. NovoLog scale. 10.Cephulac 20 grams p.o. t.i.d. 11.Ativan 1 mg q.h.s. 12.Glucophage 1000 mg p.o. b.i.d. 13.Replacement protocol. 14.Narcan 0.2 q.2 p.r.n. 15.Zofran 4 mg q.8 p.r.n. 16.Protonix 40 mg q.h.s. 17.Zoloft 200 mg q.h.s. 18.Aldactone 25 mg p.o. b.i.d. 19.Desyrel 100 mg p.o. q.h.s. 20.Ambien 10 mg p.o. q.h.s. PHYSICAL EXAMINATION: Patient is alert and oriented x3. Pulse is 96, blood pressure 105/70, respiration 22, temperature 98.8, pulse ox 93% on 2 L. HEENT: Conjunctivae normal. Oral mucosa moist. NECK: No jugular venous distention. No carotid bruit. No lymph node enlargement. CARDIOVASCULAR: S1, S2 muffled. No S3, no S4. RESPIRATORY: Breath sounds diminished at the bases. A few scattered rhonchi and crackles. ABDOMEN: Soft. Obese. Mild diffuse discomfort. No guarding. No rigidity. No mass palpable. LEGS: No edema, no swelling. NERVOUS SYSTEM: Higher function as mentioned earlier. Moves all 4 limbs. No focal motor or sensory deficits. LYMPHATICS: No lymphadenopathy of the neck, axillae or groin. SKIN: No ulcer, rash or bleeding. JOINTS: No active deforming arthropathy. LABS: WBC 3, hemoglobin 11.1, platelets 60. Sodium 137, potassium 3.4. Albumin is 2.5, total protein 6.1, and ammonia is 69. ASSESSMENT: 1. Abdominal pain, distention, ascites with possible cirrhosis of the liver, rule out spontaneous bacterial peritonitis. 2. Increased bilirubin. 3. Increased ammonia. 4. Rule out urinary tract infection. 5. Diabetes mellitus type 2. 6. Hyponatremia. 7. Macrocytosis. 8. Obesity with body mass index of 39.3. 9. History of diabetes mellitus type 2. 10.Hypertension. 11.Hyperlipidemia. 12.History of methicillin-resistant Staphylococcus aureus. 13.History of section. 14.History of bipolar depression. 15.FULL CODE. RECOMMENDATIONS AND DISCUSSION: Recommend to continue current medications. Continue with monitoring and symptomatic treatment. Continue with diuretics. I recommend diuretics at this time and also will recommend to continue with lactulose and repeat labs will be ordered. Basic evaluation for chronic liver disease testing was also ordered by Gastroenterology including alpha-1 antitrypsin, alpha fetoprotein, LUI, antimitochondrial antibody, ceruloplasmin, iron binding capacity, liver kidney microsome antibody, protein electrophoresis and smooth muscle antibody. We will await the reports. The overall prognosis is extremely guarded because of multiple complex medical issues. Discussed with the patient. A copy of dictation forwarded to Dr. Levy who is the primary physician. MMODL / IJN: [id number] / MTDD
[2018-09-14] MEDS: FUROSEMIDE 20 MG TAB PO SCH (15:26)
[2018-09-14 16:54] LABS: Glucose,Whole Blood 195 mg/dL (75-99)
[2018-09-14 18:40] LABS: Iron Saturation 9.85 (12.00-45.00)
[2018-09-14] MEDS: PANTOPRAZOLE 40 MG TABLET PO SCH (20:25)
[2018-09-14] MEDS: SERTRALINE 100 MG TAB PO SCH (20:25)
[2018-09-14] MEDS: ATORVASTATIN 10 MG TAB PO SCH (20:25)
[2018-09-14] MEDS: ZOLPIDEM 10 MG TAB PO SCH (20:26)
[2018-09-14] MEDS: traZODone HCL 100 MG TAB PO SCH (20:26)
[2018-09-14] MEDS: BISOPROLOL-HCTZ 10-6.25 MG 1 EACH TAB PO SCH (20:28)
[2018-09-14 20:39] LABS: Glucose,Whole Blood 242 mg/dL (75-99)
[2018-09-14 21:52] LABS: Hepatitis A Antibody IgM Non-Reactive (Non-Reactive); Hepatitis B Core IgM Non-Reactive (Non-Reactive)
[2018-09-14 22:37] LABS: Alpha Fetoprotein, Tumor Mkr <2.5 ng/mL (0.0-7.9); Protein, Total 5.6 g/dL (6.2-8.2)
[2018-09-15] MEDS: HYDROmorphone 0.5 MG/0.5 ML SYRINGE IVP PRN ×5 (02:12→22:00)
[2018-09-15] MEDS: cloNIDine HCL 0.1 MG TAB PO SCH ×2 (07:58→21:56)
[2018-09-15] MEDS: INSULIN ASPART (NovoLOG) 100 UNIT/ML VIAL SQ SCH ×4 (07:58→21:58)
[2018-09-15] MEDS: SPIRONOLACTONE 25 MG TAB PO SCH ×2 (07:58→21:56)
[2018-09-15] MEDS: metFORMIN 500 MG TAB PO SCH ×2 (07:58→21:56)
[2018-09-15] MEDS: FUROSEMIDE 20 MG TAB PO SCH ×2 (07:58→15:05)
[2018-09-15] MEDS: glipiZIDE 10 MG TAB PO SCH ×2 (07:58→21:56)
[2018-09-15] MEDS: LACTULOSE 20 GM/30 ML CUP PO SCH ×3 (08:00→21:59)
[2018-09-15 08:04] LABS: Glucose,Whole Blood 145 mg/dL (75-99)
[2018-09-15 09:26] LABS: Anisocytosis Slight; Basophils % (A) 1 %; Eosinophils # (A) 0.1 k/uL (0-0.7); Eosinophils % (A) 3 %; HCT 37.4 % (34.0-46.0); HGB 11.6 gm/dL (11.4-16.0); Hypochromasia Marked; Lymphocytes # (A) 1.3 k/uL (1.0-4.8); Lymphocytes % (A) 36 %; MCH 24.6 pg (25.0-35.0); MCHC 30.9 g/dL (31.0-37.0); MCV 79.4 fL (80.0-100.0); Mean Platelet Volume 7.3; Microcytosis Slight; Monocytes # (A) 0.2 k/uL (0-1.0); Monocytes % (A) 5 %; Neutrophils % (A) 54 %; Poikilocytosis Slight; RBC 4.72 m/uL (3.80-5.40); RDW 16.5 % (11.5-15.5); WBC 3.7 k/uL (3.8-10.6)
[2018-09-15 09:36] LABS: ALT 27 U/L (9-52); AST 66 U/L (14-36); Albumin 2.7 g/dL (3.5-5.0); Alkaline Phosphatase 160 U/L (38-126); Anion Gap 4 mmol/L; Blood Urea Nitrogen 4 mg/dL (7-17); Calcium 7.9 mg/dL (8.4-10.2); Carbon Dioxide 34 mmol/L (22-30); Chloride 100 mmol/L (98-107); Glucose 161 mg/dL (74-99); Potassium 3.2 mmol/L (3.5-5.1); Sodium 138 mmol/L (137-145); Total Bilirubin 1.2 mg/dL (0.2-1.3); Total Protein 6.4 g/dL (6.3-8.2)
[2018-09-15 09:49] LABS: Platelet Count 68 k/uL (150-450)
[2018-09-15] MEDS ORDERED: Potassium Replacement Protocol 1 EACH MISC MISCELLANE PRN (11:08)
[2018-09-15] MEDS: POTASSIUM CHLORIDE ER 20 MEQ TAB.ER PO SCH (11:54)
[2018-09-15 12:09] LABS: Ceruloplasmin 25.7 mg/dL (20.0-60.0)
[2018-09-15 12:31] LABS: Glucose,Whole Blood 166 mg/dL (75-99)
[2018-09-15 13:29] LABS: Albumin 2.37 g/dL (3.80-4.90); Gamma Globulin 1.67 g/dL (0.70-1.50)
--- NOTE | 2018-09-15 13:30 | P.PN ---
Subjective Progress Note Date: 09/15/18 Principal diagnosis: Cirrhosis ascites Status post paracentesis 3.2 L removed. Afebrile. Ammonia 69 yesterday received lactulose with multiple bowel movements ammonia level this morning 52. Receiving Lasix 20 mg twice daily. Aldactone 25 mg twice daily. Ascitic fluid albumin less than 1. Somewhat forgetful today. Potassium 3.2 today. Objective - Vital Signs Vital signs: Vital Signs Temp 97.9 F 09/15/18 05:20 Pulse 86 09/15/18 05:20 Resp 20 09/15/18 05:20 BP 109/73 09/15/18 05:20 Pulse Ox 92 L 09/15/18 05:20 Intake & Output 09/14/18 09/15/18 09/15/18 18:59 06:59 18:59 Intake Total 500 Balance 500 Intake: Oral 500 Other: Voiding Method Toilet Toilet Toilet # Voids 1 1 3 # Bowel Movements 0 - Exam General appearance: The patient is alert, oriented, in no acute distress. HET: Head is normocephalic and atraumatic. Pupils are equal and reactive. Oropharynx is clear without lesions. Neck: Supple without lymphadenopathy. Trachea midline. Heart: S1 S2. Regular rate and rhythm. Lungs: No crackles or wheezes are heard. Abdomen: Soft, obese nontender, nondistended with bowel sounds. No peritoneal signs. No palpable organomegaly or masses. Extremities: Normal skin color and turgor. No cyanosis, rash, ulceration, clubbing, or edema. Radial and pedal pulses are 2/4 bilaterally. Neurological: No focal deficits. Strength and sensation are grossly intact. No asterixis. - Labs CBC & Chem 7: 09/15/18 08:41 09/15/18 08:41 Labs: Abnormal Lab Results - Last 24 Hours (Table) 09/14/18 09/14/18 09/14/18 Range/Units 09:26 16:51 20:26 WBC (3.8-10.6) k/uL MCV (80.0-100.0) fL MCH (25.0-35.0) pg MCHC (31.0-37.0) g/dL RDW (11.5-15.5) % Plt Count (150-450) k/uL Potassium (3.5-5.1) mmol/L Carbon Dioxide (22-30) mmol/L BUN (7-17) mg/dL Creatinine (0.52-1.04) mg/dL Glucose (74-99) mg/dL POC Glucose (mg/dL) 195 H 242 H (75-99) mg/dL Calcium (8.4-10.2) mg/dL Iron 26 L (50-170) ug/dL Iron Saturation 9.85 L (12.00-45.00) AST (14-36) U/L Alkaline Phosphatase (38-126) U/L Ammonia (<30) umol/L Total Protein (PEP) 5.6 L (6.2-8.2) g/dL Albumin (3.5-5.0) g/dL 09/15/18 09/15/18 09/15/18 Range/Units 07:01 08:41 08:41 WBC 3.7 L (3.8-10.6) k/uL MCV 79.4 L (80.0-100.0) fL MCH 24.6 L (25.0-35.0) pg MCHC 30.9 L (31.0-37.0) g/dL RDW 16.5 H (11.5-15.5) % Plt Count 68 L (150-450) k/uL Potassium 3.2 L (3.5-5.1) mmol/L Carbon Dioxide 34 H (22-30) mmol/L BUN 4 L (7-17) mg/dL Creatinine 0.47 L (0.52-1.04) mg/dL Glucose 161 H (74-99) mg/dL POC Glucose (mg/dL) 145 H (75-99) mg/dL Calcium 7.9 L (8.4-10.2) mg/dL Iron (50-170) ug/dL Iron Saturation (12.00-45.00) AST 66 H (14-36) U/L Alkaline Phosphatase 160 H (38-126) U/L Ammonia (<30) umol/L Total Protein (PEP) (6.2-8.2) g/dL Albumin 2.7 L (3.5-5.0) g/dL 09/15/18 09/15/18 Range/Units 08:41 12:24 WBC (3.8-10.6) k/uL MCV (80.0-100.0) fL MCH (25.0-35.0) pg MCHC (31.0-37.0) g/dL RDW (11.5-15.5) % Plt Count (150-450) k/uL Potassium (3.5-5.1) mmol/L Carbon Dioxide (22-30) mmol/L BUN (7-17) mg/dL Creatinine (0.52-1.04) mg/dL Glucose (74-99) mg/dL POC Glucose (mg/dL) 166 H (75-99) mg/dL Calcium (8.4-10.2) mg/dL Iron (50-170) ug/dL Iron Saturation (12.00-45.00) AST (14-36) U/L Alkaline Phosphatase (38-126) U/L Ammonia 52 H (<30) umol/L Total Protein (PEP) (6.2-8.2) g/dL Albumin (3.5-5.0) g/dL Microbiology - Last 24 Hours (Table) 09/13/18 19:40 Urine Culture - Final Urine,Voided 09/13/18 15:33 Gram Stain - Preliminary Paracentesis Fluid Body Fluid Culture - Preliminary 09/13/18 12:56 Blood Culture - Preliminary Blood No Growth after 24 hours Assessment and Plan (1) Elevated liver enzymes Narrative/Plan: History of hyperlipidemia diabetes hypertension and obesity possible chronic liver disease possible nonalcoholic fatty liver disease induced cirrhosis. Current Visit: Yes Status: Acute Code(s): R74.8 - ABNORMAL LEVELS OF OTHER SERUM ENZYMES SNOMED Code(s): 853709777 (2) Hyperammonemia Current Visit: Yes Status: Acute Code(s): E72.20 - DISORDER OF UREA CYCLE METABOLISM, UNSPECIFIED SNOMED Code(s): 6781769 (3) Abdominal pain Current Visit: Yes Status: Acute Code(s): R10.9 - UNSPECIFIED ABDOMINAL PAIN SNOMED Code(s): 63472151 (4) Ascites Current Visit: Yes Status: Acute Code(s): R18.8 - OTHER ASCITES SNOMED Code(s): 649900798 (5) Portal hypertension Current Visit: Yes Status: Acute Code(s): K76.6 - PORTAL HYPERTENSION SNOMED Code(s): 57393626 Plan: 1. Continue with 1 more night of observation and reevaluate in a.m. along with serum ammonia level. Lactulose has been decreased to 10 g 3 times a day titrated 3-4 BMs 24 hours. Daily monitoring of CBC CMP ammonia. Fluid ascitic analysis pending. Continue with cardiac diet. Patient will need continued follow-up after discharge with HCC screening variceal screening and continue titration of her medications. Full serologic workup for chronic liver disease pending. Assessment and plan a care discussed with Dr. Read
[2018-09-15 13:39] LABS: Liver/Kidney Microsome Antibod 1.4 UNITS (<=20)
[2018-09-15 17:23] LABS: Glucose,Whole Blood 183 mg/dL (75-99)
--- NOTE | 2018-09-15 20:16 | PN ---
PROGRESS NOTE DATE OF SERVICE: 09/15/2018 This 48-year-old woman who was admitted with abdominal distention and ascites is being closely monitored at this time. The patient had abdominal paracentesis for 3.2 liters of straw-colored fluid and the cytology available today showed mesothelial cyst macrophages and no evidence of any malignancy. Gastroenterology is following the patient. Patient was started on diuretics. Patient also has elevated ammonia at this time. Past medical history reviewed. PHYSICAL EXAMINATION: Patient is alert, oriented x3. Pulse is 88, blood pressure 109/74, respiration 18, temperature 98.3, pulse ox 94% on 2 L. HEENT: Conjunctivae normal. NECK: No jugular venous distention. CARDIOVASCULAR SYSTEM: S1, S2 muffled. RESPIRATORY SYSTEM: Breath sounds diminished at the bases. A few scattered rhonchi and crackles. ABDOMEN: Soft. No guarding or rigidity. No mass palpable. LEGS: No edema. No swelling. NERVOUS SYSTEM: No focal deficit. LABS: WBC 3.7, hemoglobin 11.6, sodium 138, potassium 3.2. Accu-Cheks 161, 166 and 183. Total bilirubin is 1.2. Calcium is 7.9. Ammonia is 52, which is improving. ASSESSMENT: 1. Abdominal pain and distention; ascites with possible cirrhosis of liver. Rule out spontaneous bacterial peritonitis. 2. Increased bilirubin. 3. Increased ammonia. 4. Metabolic encephalopathy, possibly acute, secondary to hepatic encephalopathy. 5. Possible urinary tract infection. 6. Diabetes mellitus, type 2. 7. Hyponatremia. 8. Microcytosis. 9. Obesity with body mass index of 39.3. 10.History of diabetes mellitus, type 2. 11.Hypertension. 12.Hyperlipidemia. 13.History of methicillin-resistant Staphylococcus aeruginosa. 14.History of section. 15.History of bipolar, depression. 16.FULL CODE. RECOMMENDATIONS AND DISCUSSION: I recommend to continue current medications, continue with the monitoring, symptomatic treatment. I would recommend continuing the antibiotics. Replace potassium. Otherwise, repeat labs. Continue with the diuretics. Increase ambulation. Closely follow with Gastroenterology. Multiple blood work results are pending at this time. Possible discharge once the patient is stable within the next 24 to 48 hours. Further recommendations to follow. MMODL / IJN: [id number] /
[2018-09-15 20:49] LABS: Glucose,Whole Blood 223 mg/dL (75-99)
[2018-09-15] MEDS: SERTRALINE 100 MG TAB PO SCH (21:55)
[2018-09-15] MEDS: ZOLPIDEM 10 MG TAB PO SCH (21:55)
[2018-09-15] MEDS: BISOPROLOL-HCTZ 10-6.25 MG 1 EACH TAB PO SCH (21:56)
[2018-09-15] MEDS: ATORVASTATIN 10 MG TAB PO SCH (21:57)
[2018-09-15] MEDS: PANTOPRAZOLE 40 MG TABLET PO SCH (21:57)
[2018-09-15] MEDS: traZODone HCL 100 MG TAB PO SCH (21:57)
[2018-09-15 22:09] VITALS: RESP 20
[2018-09-16] MEDS: HYDROmorphone 0.5 MG/0.5 ML SYRINGE IVP PRN ×2 (01:05→08:49)
[2018-09-16 05:57] VITALS: BP 99/64; PULSE 85; TEMP 98.1
[2018-09-16 07:27] LABS: Glucose,Whole Blood 191 mg/dL (75-99)
[2018-09-16] MEDS: INSULIN ASPART (NovoLOG) 100 UNIT/ML VIAL SQ SCH ×2 (08:45→13:42)
[2018-09-16] MEDS: SPIRONOLACTONE 25 MG TAB PO SCH (08:47)
[2018-09-16] MEDS: cloNIDine HCL 0.1 MG TAB PO SCH (08:47)
[2018-09-16] MEDS: LACTULOSE 20 GM/30 ML CUP PO SCH (08:48)
[2018-09-16] MEDS: FUROSEMIDE 20 MG TAB PO SCH (08:48)
[2018-09-16] MEDS: glipiZIDE 10 MG TAB PO SCH (08:48)
[2018-09-16] MEDS: metFORMIN 500 MG TAB PO SCH (08:48)
[2018-09-16 11:24] LABS: Anisocytosis Slight; Basophils % (A) 0 %; Eosinophils # (A) 0.1 k/uL (0-0.7); Eosinophils % (A) 4 %; HCT 35.7 % (34.0-46.0); HGB 10.9 gm/dL (11.4-16.0); Hypochromasia Marked; Lymphocytes % (A) 35 %; MCH 24.3 pg (25.0-35.0); MCHC 30.7 g/dL (31.0-37.0); MCV 79.4 fL (80.0-100.0); Mean Platelet Volume 6.9; Microcytosis Slight; Monocytes # (A) 0.2 k/uL (0-1.0); Monocytes % (A) 7 %; Neutrophils # (A) 1.6 k/uL (1.3-7.7); Neutrophils % (A) 52 %; Poikilocytosis Slight; RDW 16.5 % (11.5-15.5)
[2018-09-16 11:29] LABS: Platelet Count 60 k/uL (150-450)
[2018-09-16 11:38] LABS: ALT 22 U/L (9-52); AST 52 U/L (14-36); Albumin 2.5 g/dL (3.5-5.0); Alkaline Phosphatase 148 U/L (38-126); Anion Gap 3 mmol/L; Blood Urea Nitrogen 6 mg/dL (7-17); Calcium 8.2 mg/dL (8.4-10.2); Carbon Dioxide 33 mmol/L (22-30); Chloride 101 mmol/L (98-107); Glucose 214 mg/dL (74-99); Potassium 3.5 mmol/L (3.5-5.1); Sodium 137 mmol/L (137-145); Total Bilirubin 0.9 mg/dL (0.2-1.3); Total Protein 5.9 g/dL (6.3-8.2)
[2018-09-16 12:21] LABS: Glucose,Whole Blood 231 mg/dL (75-99)
--- NOTE | 2018-09-16 22:17 | DS ---
DISCHARGE SUMMARY DATE OF SERVICE: 09/16/2018. FINAL DIAGNOSES: 1. Abdominal pain and distention ascites with possible cirrhosis of the liver. No evidence of spontaneous bacterial peritonitis. 2. Increased bilirubin. 3. Increased ammonia. 4. Metabolic encephalopathy, possibly acute secondary to hepatic encephalopathy. 5. Urinary tract infection present on admission, improved. 6. Diabetes mellitus type 2. 7. Hyponatremia. 8. Microcytosis. 9. Obesity with body mass index of 39.3. 10.History of diabetes type 2. 11.Hypertension. 12.Hyperlipidemia. 13.History of MRSA. 14.History of section. 15.History of bipolar depression. 16.FULL CODE. DISCHARGE DISPOSITION: The patient being discharged in stable condition with guarded prognosis. Gastroenterology cleared the patient for discharge. HISTORY OF PRESENT ILLNESS: This 48-year-old woman with past medical history of multiple medical problems as mentioned earlier, admitted with abdominal pain, distention, ascites and possible cirrhosis of the liver. The patient was monitored closely. The patient given diuretics. Ascitic aspiration was done. Dr. Read, saw the patient. Ascitic fluid cytology showed no evidence of any malignancy. Otherwise, the cultures also negative. The patient improved significantly. On exam, vital signs are stable. Cardio system: S1, S2. Abdomen soft, nervous system: No focal deficits. The patient had multiple serological evaluations by Dr. Read which will be followed up in the outpatient setting with Dr. Read regarding the chronic liver disease. I would also recommend the patient closely follow with Dr. Levy who is the primary physician. Discharge diet: Cardiac. ACTIVITY: Limited until follow up. FOLLOWUP: Follow up with Dr. Levy in 2-3 days. Follow up with Dr. Read as recommended. DISCHARGE MEDICATIONS: As follows: 1. Abilify 20 mg q.h.s. 2. Ambien 10 mg q.h.s. 3. Ativan 1 mg q.h.s. p.r.n. 4. Catapres 0.1 p.o. b.i.d. 5. Glucovance 5/500 one p.o. b.i.d. 6. Omeprazole 20 mg q.h.s. 7. Trazodone 100 mg q.h.s. 8. Ziac 10/6.25 mg 1 p.o. q.h.s. 9. Zocor 20 mg q.h.s. 10.Zoloft 200 mg q.h.s. 11.Aldactone 50 mg p.o. b.i.d. 12.Cephulac 10 g p.o. b.i.d. 13.Lasix 40 mg p.o. b.i.d. Once again, the patient is being discharged in stable condition. Guarded prognosis. MMODL / IJN: [id number] /
== END 2018-09-16 14:00 | disposition home or self-care (01) | DRG 432 ==
LOC: EC 22:20 → 4MS4W 09-13 02:03
PROVIDERS: ADMIT Hospitalist; ATTEND Hospitalist
PROC: 0W9G3ZX Drainage of Peritoneal Cavity, Percutaneous Approach, Diagnostic (ICD-10-PCS; principal; 2018-09-13)
DX: K74.60 Unspecified cirrhosis of liver (principal); G93.41 Metabolic encephalopathy; R18.8 Other ascites; E87.1 Hypo-osmolality and hyponatremia; K76.6 Portal hypertension; N39.0 Urinary tract infection, site not specified; D75.89 Other specified diseases of blood and blood-forming organs; R16.1 Splenomegaly, not elsewhere classified; K72.90 Hepatic failure, unspecified without coma; K76.0 Fatty (change of) liver, not elsewhere classified; E11.9 Type 2 diabetes mellitus without complications; E66.9 Obesity, unspecified; E78.5 Hyperlipidemia, unspecified; I10 Essential (primary) hypertension; K59.00 Constipation, unspecified; K64.9 Unspecified hemorrhoids; F32.9 Major depressive disorder, single episode, unspecified; Z68.39 Body mass index [BMI] 39.0-39.9, adult; Z79.899 Other long term (current) drug therapy; Z88.1 Allergy status to other antibiotic agents; Z88.0 Allergy status to penicillin; Z90.710 Acquired absence of both cervix and uterus; Z86.14 Personal history of Methicillin resistant Staphylococcus aureus infection; Z88.5 Allergy status to narcotic agent; Z82.49 Family history of ischemic heart disease and other diseases of the circulatory system; Z82.5 Family history of asthma and other chronic lower respiratory diseases; Z84.1 Family history of disorders of kidney and ureter
CPT/HCPCS: 36415; 49083; 74018; 74177; 80053; 80074; 81001; 82042; 82103; 82105; 82140; 82150; 82248; 82390; 82728; 83516; 83540; 83550; 83690; 84165; 85025; 85610; 86038; 86376; 87040; 87070; 87086; 87205; 88108; 88305; 96361; 96374; 96375; 99285

== ENCOUNTER 2018-09-16 23:33 | Emergency (ER) | payer OTHER, MEDICARE ==
[2018-09-17] MEDS ORDERED: HYDROmorphone 1 MG/ML 1 ML SYRINGE IM STA (00:27)
[2018-09-17] MEDS ORDERED: ACETAMINOPHEN TAB 325 MG TAB PO STA (01:27)
--- NOTE | 2018-09-17 02:07 | XR ---
EXAM: XR Bilateral Hips With Pelvis When Performed, 3 or 4 Views CLINICAL HISTORY: Pain TECHNIQUE: Three or four views of the bilateral hips, with pelvis when performed. COMPARISON: No relevant prior studies available. FINDINGS: Bones/joints: Unremarkable. No acute fracture. No dislocation. Soft tissues: Unremarkable. IMPRESSION: Normal bilateral hip x-rays.
--- NOTE | 2018-09-17 02:17 | XR ---
EXAM: XR Lumbar Spine, 2 or 3 Views CLINICAL HISTORY: : Pain TECHNIQUE: Frontal and lateral views of the lumbar spine. COMPARISON: CT 09/13/18 FINDINGS: Vertebrae: Interval development since the prior study of compression deformity of L1 with approximately 9 mm loss of height. Possibility of slight compression deformity of T12 cannot be totally excluded Disc spaces: No acute findings. No significant narrowing. Soft tissues: Unremarkable. IMPRESSION: Compression fracture of L1 with approximate 9 mm loss of height estimated on plain film new from the prior study of 09/13/18. Possible compression deformity of T12 is not excluded
[2018-09-17 02:18] LABS: Anisocytosis Slight; Basophils % (A) 0 %; Eosinophils % (A) 1 %; HCT 34.4 % (34.0-46.0); HGB 11.2 gm/dL (11.4-16.0); Hypochromasia Slight; Lymphocytes # (A) 0.8 k/uL (1.0-4.8); Lymphocytes % (A) 21 %; MCH 24.9 pg (25.0-35.0); MCHC 32.5 g/dL (31.0-37.0); MCV 76.7 fL (80.0-100.0); Mean Platelet Volume 7.9; Microcytosis Slight; Monocytes # (A) 0.3 k/uL (0-1.0); Monocytes % (A) 7 %; Neutrophils # (A) 2.9 k/uL (1.3-7.7); Neutrophils % (A) 71 %; Poikilocytosis Slight; RBC 4.49 m/uL (3.80-5.40); RDW 16.6 % (11.5-15.5); WBC 4.1 k/uL (3.8-10.6)
[2018-09-17 02:23] LABS: INR 1.3 (<1.2); Partial Thromboplastin Time 24.4 sec (22.0-30.0)
[2018-09-17 02:25] LABS: ALT 21 U/L (9-52); AST 56 U/L (14-36); Albumin 2.7 g/dL (3.5-5.0); Alkaline Phosphatase 157 U/L (38-126); Anion Gap 7 mmol/L; Blood Urea Nitrogen 5 mg/dL (7-17); Calcium 8.2 mg/dL (8.4-10.2); Carbon Dioxide 29 mmol/L (22-30); Chloride 100 mmol/L (98-107); Glucose 225 mg/dL (74-99); Potassium 3.3 mmol/L (3.5-5.1); Sodium 136 mmol/L (137-145); Total Bilirubin 1.1 mg/dL (0.2-1.3); Total Protein 6.2 g/dL (6.3-8.2)
--- NOTE | 2018-09-17 02:29 | XR ---
EXAM: XR Chest, 1 View CLINICAL HISTORY: Fever TECHNIQUE: Frontal view of the chest. COMPARISON: 07/21/18 FINDINGS: Lungs: Unremarkable. No consolidation. Pleural space: Unremarkable. No pneumothorax. Heart: Unremarkable. No cardiomegaly. Mediastinum: Unremarkable. Bones/joints: Unremarkable. IMPRESSION: Unremarkable single view the chest
[2018-09-17 02:31] LABS: Platelet Count 64 k/uL (150-450); Poikilocytosis (M) Present
[2018-09-17 03:24] VITALS: RESP 18; TEMP 99.4
[2018-09-17 03:45] LABS: Appearance,Urine Cloudy (Clear); Bacteria,Urine Occasional /hpf; Bilirubin,Urine Negative (Negative); Blood,Urine Trace (Negative); Color,Urine Yellow; Glucose,Urine (UA) Negative (Negative); Hyaline Casts,Urine 14 /lpf (0-2); Ketones,Urine Negative (Negative); Leukocyte Esterase,Urine Moderate (Negative); Mucus,Urine Occasional /hpf; Nitrite,Urine Negative (Negative); PH, Urine 5.5 (5.0-8.0); Protein,Urine Negative (Negative); RBC,Urine 5 /hpf (0-5); Specific Gravity,Urine 1.016 (1.001-1.035); Squamous Epithelial Cell,Urine 12 /hpf (0-4); Urobilinogen,Urine <2.0 mg/dL (<2.0); WBC,Urine 3 /hpf (0-5)
[2018-09-17] MEDS ORDERED: KETOROLAC 30 MG/ML 1 ML VIAL IVP STA (04:10)
[2018-09-17] MEDS ORDERED: HYDROmorphone 1 MG/ML 1 ML SYRINGE IVP STA (04:10)
[2018-09-17] MEDS ORDERED: traMADol 50 MG TAB PO STA (04:10)
[2018-09-17] MEDS ORDERED: SODIUM CHLORIDE 0.9% 1,000 ML IV ONE (04:16)
--- NOTE | 2018-09-17 04:29 | ED ---
Fall HPI - General Chief Complaint: Fall Stated Complaint: Fall Time Seen by Provider: 09/17/18 00:20 Source: patient, EMS Mode of arrival: EMS - History of Present Illness Initial Comments: 48 year-old female patient presents to the emergency department today for evaluation of low back pain after experiencing a slip and fall accident at home. Patient states she was rushing to the bathroom when she slipped and fell landing on her buttocks. Patient denies hitting her head or losing consciousness during the fall. Denies any neck injury with this. She denies any radiation of the pain down her legs. Denies any numbness or tingling to the lower external views. Denies any saddle anesthesia or loss of bowel or bladder control. Patient was found to be febrile at 100.7F during triage. Patient was discharged from the hospital today after being admitted for ascites, she was subsequently diagnosed with cirrhosis of the liver most likely related to her medication regimen. Patient denies any cough, sore throat, nasal congestion, abdominal pain, vomiting, or diarrhea. Denies any hematuria, dysuria, urinary frequency, urinary urgency. She denies any rash. Patient denies any headache, chest pain, shortness of breath, dizziness, weakness, nausea, vomiting, or difficulties with bowel movements or urination. - Related Data Home Medications Medication Instructions Recorded Confirmed Bisoprolol-Hctz 10-6.25 mg [Ziac 1 tab PO HS 09/02/14 09/13/18 10-6.25 MG] Sertraline [Zoloft] 200 mg PO HS 09/02/14 09/13/18 Simvastatin [Zocor] 20 mg PO HS 09/02/14 09/13/18 Zolpidem [Ambien] 10 mg PO HS 09/02/14 09/13/18 cloNIDine HCL [Catapres] 0.1 mg PO BID 09/02/14 09/13/18 glyBURIDE/METFORMIN HCL 2 tab PO BID 09/02/14 09/13/18 [Glucovance 5-500 mg Tablet] Omeprazole 20 mg PO HS 12/29/16 09/13/18 LORazepam [Ativan] 1 mg PO HS PRN 02/04/18 09/13/18 ARIPiprazole [Abilify] 20 mg PO HS 09/13/18 09/13/18 traZODone HCL 100 mg PO HS 09/13/18 09/13/18 Previous Rx's Medication Instructions Recorded Furosemide [Lasix] 40 mg PO BID@0900,1600 #60 tab 09/16/18 Lactulose [Cephulac] 10 gm PO BID #300 ml 09/16/18 Spironolactone [Aldactone] 50 mg PO BID #60 tab 09/16/18 traMADol HCl [Ultram] 50 mg PO Q6H PRN #12 tab 09/17/18 Allergies Allergy/AdvReac Type Severity Reaction Status Date / Time Penicillins Allergy Rash/Hives Verified 09/16/18 23:54 Sulfa (Sulfonamide Allergy Rash/Hives Verified 09/16/18 23:54 Antibiotics) erythromycin base AdvReac Abdominal Verified 09/16/18 23:54 Pain meperidine HCl [From Demerol] AdvReac Confusion Verified 09/16/18 23:54 Review of Systems ROS Statement: Those systems with pertinent positive or pertinent negative responses have been documented in the HPI. ROS Other: All systems not noted in ROS Statement are negative. Past Medical History Past Medical History: Diabetes Mellitus, Hyperlipidemia, Hypertension History of Any Multi-Drug Resistant Organisms: MRSA Date of last positivie culture/infection: 01/2010 MDRO Source:: abdomen Past Surgical History: Section, Hysterectomy Additional Past Surgical History / Comment(s): ophrarectomy Past Anesthesia/Blood Transfusion Reactions: No Reported Reaction Past Psychological History: Bipolar, Depression Smoking Status: Never smoker Past Alcohol Use History: None Reported Past Drug Use History: None Reported - Past Family History Father Family Medical History: COPD, Hyperlipidemia, Hypertension, Renal Disease Mother Family Medical History: Hyperlipidemia, Hypertension General Exam General appearance: alert, in no apparent distress, other (This is a well- developed, well-nourished adult female patient in no acute distress. Vital signs upon presentation are temperature 100.7F, pulse 96% on room air. Respirations 16, blood pressure 107/75, pulse ox 93% on room air.) Eye exam: Present: normal appearance, PERRL, EOMI. Absent: scleral icterus, conjunctival injection, periorbital swelling ENT exam: Present: normal exam, normal oropharynx, mucous membranes moist Respiratory exam: Present: normal lung sounds bilaterally. Absent: respiratory distress, wheezes, rales, rhonchi, stridor Cardiovascular Exam: Present: regular rate, normal rhythm, normal heart sounds. Absent: systolic murmur, diastolic murmur, rubs, gallop, clicks GI/Abdominal exam: Present: soft, normal bowel sounds, other (There is left anterior abdominal wall ecchymosis.). Absent: distended, tenderness, guarding, rebound, rigid Back exam: Present: normal inspection, vertebral tenderness (There is lumbar vertebral tenderness) Neurological exam: Present: alert, oriented X3, CN II-XII intact Psychiatric exam: Present: normal affect, normal mood Skin exam: Present: warm, dry, intact, normal color. Absent: rash Course Vital Signs 09/16/18 09/17/18 09/17/18 23:46 03:00 05:34 Temperature 100.7 F H 99.4 F Pulse Rate 96 89 88 Respiratory 16 18 18 Rate Blood Pressure 107/75 108/63 112/68 O2 Sat by Pulse 93 L 91 L 96 Oximetry Medical Decision Making - Medical Decision Making 48 year-old female patient presents to the emergency department today for evaluation of increased low back pain after experiencing a slip and fall accident at home. Physical examination did reveal lumbar tenderness. Patient had no radiating pain down the legs, no concerning symptoms for cauda equina. Patient did have elevated temperature 100.7 upon arrival. Did perform labs which showed a normal white blood cell count. Lactic acid 3.5. Urinalysis was negative for any evidence of infection. Chest x-ray was obtained and showed no acute cardiopulmonary process. Patient denies any abdominal pain. Abdomen is soft and nontender. Patient was treated with pain medication in the emergency department. She was able to ambulate in the room. She was comfortable being discharged home at this time. She is instructed to monitor for any signs of developing infection. She is instructed to return immediately for worsening fever. She is instructed to follow-up with her primary care physician for recheck in 1-2 days. She is instructed to follow-up with orthopedics for further evaluation of a compression fracture. Return parameters were discussed in detail. She verbalizes understanding and agrees with this plan. - Lab Data Result diagrams: 09/17/18 02:00 09/17/18 02:00 Lab Results 09/17/18 09/17/18 09/17/18 Range/Units 02:00 02:00 02:00 WBC 4.1 (3.8-10.6) k/uL RBC 4.49 (3.80-5.40) m/uL Hgb 11.2 L (11.4-16.0) gm/dL Hct 34.4 (34.0-46.0) % MCV 76.7 L (80.0-100.0) fL MCH 24.9 L (25.0-35.0) pg MCHC 32.5 (31.0-37.0) g/dL RDW 16.6 H (11.5-15.5) % Plt Count 64 L (150-450) k/uL Neutrophils % 71 % Lymphocytes % 21 % Monocytes % 7 % Eosinophils % 1 % Basophils % 0 % Neutrophils # 2.9 (1.3-7.7) k/uL Lymphocytes # 0.8 L (1.0-4.8) k/uL Monocytes # 0.3 (0-1.0) k/uL Eosinophils # 0.0 (0-0.7) k/uL Basophils # 0.0 (0-0.2) k/uL Manual Slide Review Performed Hypochromasia Slight Poikilocytosis Slight Poikilocytosis (manual Present Anisocytosis Slight Microcytosis Slight PT (9.0-12.0) sec INR (<1.2) APTT (22.0-30.0) sec Sodium 136 L (137-145) mmol/L Potassium 3.3 L (3.5-5.1) mmol/L Chloride 100 (98-107) mmol/L Carbon Dioxide 29 (22-30) mmol/L Anion Gap 7 mmol/L BUN 5 L (7-17) mg/dL Creatinine 0.36 L (0.52-1.04) mg/dL Est GFR (CKD-EPI)AfAm >90 (>60 ml/min/1.73 sqM) Est GFR (CKD-EPI)NonAf >90 (>60 ml/min/1.73 sqM) Glucose 225 H (74-99) mg/dL Lactic Ac Sepsis Rflx Plasma Lactic Acid Mehul 3.5 H* (0.7-2.0) mmol/L Calcium 8.2 L (8.4-10.2) mg/dL Total Bilirubin 1.1 (0.2-1.3) mg/dL AST 56 H (14-36) U/L ALT 21 (9-52) U/L Alkaline Phosphatase 157 H (38-126) U/L Total Protein 6.2 L (6.3-8.2) g/dL Albumin 2.7 L (3.5-5.0) g/dL Urine Color Urine Appearance (Clear) Urine pH (5.0-8.0) Ur Specific [place] (1.001-1.035) Urine Protein (Negative) Urine Glucose (UA) (Negative) Urine Ketones (Negative) Urine Blood (Negative) Urine Nitrite (Negative) Urine Bilirubin (Negative) Urine Urobilinogen (<2.0) mg/dL Ur Leukocyte Esterase (Negative) Urine RBC (0-5) /hpf Urine WBC (0-5) /hpf Ur Squamous Epith Cells (0-4) /hpf Urine Bacteria (None) /hpf Hyaline Casts (0-2) /lpf Urine Mucus (None) /hpf 09/17/18 09/17/18 09/17/18 Range/Units 02:00 02:34 03:33 WBC (3.8-10.6) k/uL RBC (3.80-5.40) m/uL Hgb (11.4-16.0) gm/dL Hct (34.0-46.0) % MCV (80.0-100.0) fL MCH (25.0-35.0) pg MCHC (31.0-37.0) g/dL RDW (11.5-15.5) % Plt Count (150-450) k/uL Neutrophils % % Lymphocytes % % Monocytes % % Eosinophils % % Basophils % % Neutrophils # (1.3-7.7) k/uL Lymphocytes # (1.0-4.8) k/uL Monocytes # (0-1.0) k/uL Eosinophils # (0-0.7) k/uL Basophils # (0-0.2) k/uL Manual Slide Review Hypochromasia Poikilocytosis Poikilocytosis (manual Anisocytosis Microcytosis PT 13.0 H (9.0-12.0) sec INR 1.3 H (<1.2) APTT 24.4 (22.0-30.0) sec Sodium (137-145) mmol/L Potassium (3.5-5.1) mmol/L Chloride (98-107) mmol/L Carbon Dioxide (22-30) mmol/L Anion Gap mmol/L BUN (7-17) mg/dL Creatinine (0.52-1.04) mg/dL Est GFR (CKD-EPI)AfAm (>60 ml/min/1.73 sqM) Est GFR (CKD-EPI)NonAf (>60 ml/min/1.73 sqM) Glucose (74-99) mg/dL Lactic Ac Sepsis Rflx Y Plasma Lactic Acid Mehul (0.7-2.0) mmol/L Calcium (8.4-10.2) mg/dL Total Bilirubin (0.2-1.3) mg/dL AST (14-36) U/L ALT (9-52) U/L Alkaline Phosphatase (38-126) U/L Total Protein (6.3-8.2) g/dL Albumin (3.5-5.0) g/dL Urine Color Yellow Urine Appearance Cloudy H (Clear) Urine pH 5.5 (5.0-8.0) Ur Specific [place] 1.016 (1.001-1.035) Urine Protein Negative (Negative) Urine Glucose (UA) Negative (Negative) Urine Ketones Negative (Negative) Urine Blood Trace H (Negative) Urine Nitrite Negative (Negative) Urine Bilirubin Negative (Negative) Urine Urobilinogen <2.0 (<2.0) mg/dL Ur Leukocyte Esterase Moderate H (Negative) Urine RBC 5 (0-5) /hpf Urine WBC 3 (0-5) /hpf Ur Squamous Epith Cells 12 H (0-4) /hpf Urine Bacteria Occasional H (None) /hpf Hyaline Casts 14 H (0-2) /lpf Urine Mucus Occasional H (None) /hpf - Radiology Data Radiology results: report reviewed, image reviewed Bilateral hips and pelvis x-ray were obtained. Report was reviewed in its entirety. Impression by Dr. Gonzales shows normal bilateral hip x-rays. Frontal and lateral views of the lumbar spine are obtained. Report reviewed in its entirety. Impression by Dr. Gonzales shows compression fracture of L1 with approximate 9 mm loss of height estimated on plain film new from the prior study of 09/13/2018. Possible compression deformity of T12 is not excluded. One view x-ray of the chest is obtained. Report was reviewed in its entirety. Impression by Dr. Gonzales shows unremarkable single view of the chest. Disposition Clinical Impression: Compression fracture of L1 lumbar vertebra, Compression fracture of T12 vertebr a Disposition: HOME SELF-CARE Condition: Good Instructions (If sedation given, give patient instructions): Vertebral Compre ssion Fracture (ED) Additional Instructions: Follow-up with orthopedics for recheck as soon as possible. Take pain medication as directed. Follow up with her primary care physician for recheck in 1-2 days. Return to the emergency department for any new, worsening, or con cerning symptoms. Prescriptions: traMADol HCl [Ultram] 50 mg PO Q6H PRN #12 tab PRN Reason: Pain Is patient prescribed a controlled substance at d/c from ED?: No Referrals: Judy Levy MD [Primary Care Provider] - 1-2 days Harry Palencia DO [Doctor of Osteopathic Medicine] - 1-2 days Time of Disposition: 05:00
[2018-09-17 05:36] VITALS: BP 112/68; PULSE 88
== END 2018-09-17 05:34 | disposition home or self-care (01) ==
LOC: EC 23:33
DX: S32.010A Wedge compression fracture of first lumbar vertebra, initial encounter for closed fracture (principal); S22.080A Wedge compression fracture of T11-T12 vertebra, initial encounter for closed fracture; E11.9 Type 2 diabetes mellitus without complications; E78.5 Hyperlipidemia, unspecified; I10 Essential (primary) hypertension; Z86.14 Personal history of Methicillin resistant Staphylococcus aureus infection; F31.9 Bipolar disorder, unspecified; Z79.84 Long term (current) use of oral hypoglycemic drugs; Z79.899 Other long term (current) drug therapy; Z88.0 Allergy status to penicillin; Z88.1 Allergy status to other antibiotic agents; Z88.2 Allergy status to sulfonamides; Z88.5 Allergy status to narcotic agent; W01.0XXA Fall on same level from slipping, tripping and stumbling without subsequent striking against object, initial encounter; Y92.002 Bathroom of unspecified non-institutional (private) residence as the place of occurrence of the external cause
CPT/HCPCS: 36415; 71045; 72110; 73521; 80053; 81001; 83605; 85025; 85610; 85730; 87040; 87086; 96361; 96372; 96374; 96375; 99284

== ENCOUNTER → 2018-09-30 | Outpatient (CLI) | payer OTHER, MEDICARE ==
[2018-09-30 13:16] LABS: Anisocytosis Slight; Basophils % (A) 1 %; Eosinophils # (A) 0.1 k/uL (0-0.7); Eosinophils % (A) 3 %; HCT 40.2 % (34.0-46.0); HGB 12.4 gm/dL (11.4-16.0); Hypochromasia Marked; Lymphocytes # (A) 1.2 k/uL (1.0-4.8); Lymphocytes % (A) 31 %; MCH 24.2 pg (25.0-35.0); MCHC 30.9 g/dL (31.0-37.0); MCV 78.5 fL (80.0-100.0); Mean Platelet Volume 7.3; Microcytosis Slight; Monocytes # (A) 0.2 k/uL (0-1.0); Monocytes % (A) 5 %; Neutrophils # (A) 2.3 k/uL (1.3-7.7); Neutrophils % (A) 59 %; RBC 5.12 m/uL (3.80-5.40); RDW 17.2 % (11.5-15.5); WBC 3.9 k/uL (3.8-10.6)
[2018-09-30 13:18] LABS: Platelet Count 82 k/uL (150-450)
[2018-09-30 19:13] LABS: Albumin 3.2 g/dL (3.80-4.90); Albumin/Globulin Ratio 0.84 (1.60-3.17); Anion Gap 10.8 mmol/L (4.00-12.00); Calcium 8.8 mg/dL (8.7-10.3); Carbon Dioxide 28.2 mmol/L (21.6-31.8); Globulin 3.8 g/dL (1.6-3.3); Potassium 3.7 mmol/L (3.5-5.5); Total Bilirubin 1.1 mg/dL (0.2-1.2)
== END | disposition home or self-care (01) ==
LOC: LABWHC1 12:26
PROVIDERS: ATTEND Hospitalist
DX: E87.6 Hypokalemia (principal)
CPT/HCPCS: 36415; 80053; 85025

== ENCOUNTER → 2018-10-01 | Outpatient (CLI) | payer OTHER, MEDICARE ==
[2018-10-01 11:57] LABS: Anisocytosis Slight; Basophils % (A) 0 %; Eosinophils # (A) 0.1 k/uL (0-0.7); Eosinophils % (A) 3 %; HCT 42.4 % (34.0-46.0); HGB 12.8 gm/dL (11.4-16.0); Hypochromasia Moderate; Lymphocytes # (A) 1.5 k/uL (1.0-4.8); Lymphocytes % (A) 34 %; MCH 23.6 pg (25.0-35.0); MCHC 30.2 g/dL (31.0-37.0); MCV 78.1 fL (80.0-100.0); Mean Platelet Volume 7.6; Microcytosis Slight; Monocytes # (A) 0.2 k/uL (0-1.0); Monocytes % (A) 4 %; Neutrophils # (A) 2.5 k/uL (1.3-7.7); Neutrophils % (A) 57 %; RBC 5.43 m/uL (3.80-5.40); WBC 4.3 k/uL (3.8-10.6)
[2018-10-01 12:12] LABS: Platelet Count 78 k/uL (150-450)
[2018-10-01 16:16] LABS: Albumin 3.3 g/dL (3.80-4.90); Albumin/Globulin Ratio 0.83 (1.60-3.17); Bilirubin, Conjugated 0.7 mg/dL (0.20-0.40); Bilirubin,Unconjugated 0.6 mg/dL; Total Bilirubin 1.3 mg/dL (0.2-1.2); Total Protein 7.3 g/dL (6.2-8.2)
== END ==
LOC: LABWHC1 10:25
DX: E78.00 Pure hypercholesterolemia, unspecified (principal); K74.60 Unspecified cirrhosis of liver
CPT/HCPCS: 36415; 80061; 80076; 85025

== ENCOUNTER → 2019-01-04 | Outpatient (CLI) | payer MEDICARE, OTHER ==
[2019-01-04 13:13] LABS: Anisocytosis Slight; Basophils % (A) 1 %; Eosinophils # (A) 0.1 k/uL (0-0.7); Eosinophils % (A) 1 %; HGB 13.5 gm/dL (11.4-16.0); Lymphocytes # (A) 1.2 k/uL (1.0-4.8); Lymphocytes % (A) 17 %; MCH 24.6 pg (25.0-35.0); MCHC 31.5 g/dL (31.0-37.0); MCV 77.9 fL (80.0-100.0); Mean Platelet Volume 6.8; Microcytosis Slight; Monocytes # (A) 0.4 k/uL (0-1.0); Monocytes % (A) 6 %; Neutrophils # (A) 5.2 k/uL (1.3-7.7); Neutrophils % (A) 74 %; RBC 5.52 m/uL (3.80-5.40); RDW 18.4 % (11.5-15.5)
[2019-01-04 13:40] LABS: Platelet Count 79 k/uL (150-450)
[2019-01-04 21:09] LABS: African American GFR (CKD) 88.9 (60.0-200.0); Albumin 3.8 g/dL (3.80-4.90); Albumin/Globulin Ratio 0.97 (1.60-3.17); Anion Gap 12.4 mmol/L (4.00-12.00); BUN/Creat Ratio 15.56 Ratio (12.00-20.00); Calcium 9.3 mg/dL (8.7-10.3); Carbon Dioxide 27.6 mmol/L (21.6-31.8); Globulin 3.9 g/dL (1.6-3.3); Potassium 3.7 mmol/L (3.5-5.5); Total Bilirubin 1.7 mg/dL (0.3-1.2); Total Protein 7.7 g/dL (6.2-8.2)
[2019-01-04 22:31] LABS: Hemoglobin A1C 7.2 % (4.0-6.0)
== END | disposition home or self-care (01) ==
LOC: LABWHC1 12:27
DX: Z51.81 Encounter for therapeutic drug level monitoring (principal); Z79.899 Other long term (current) drug therapy
CPT/HCPCS: 36415; 80053; 83036; 84443; 85025

== ENCOUNTER → 2019-01-20 | Outpatient (CLI) | payer OTHER, MEDICARE ==
--- NOTE | 2019-01-24 10:25 | MM ---
Reason for exam: screening (asymptomatic). Last mammogram was performed 10 years and 2 months ago. History: Family history of breast cancer in maternal aunt. Physical Findings: A clinical breast exam by your physician is recommended on an annual basis and results should be correlated with mammographic findings. MG 3D Screening Mammo W/Cad Bilateral CC and MLO view(s) were taken. Prior study comparison: November 15, 2008, bilateral digital screening mammogram. There are scattered fibroglandular densities. No significant changes when compared with prior studies. ASSESSMENT: Benign, BI-RAD 2 RECOMMENDATION: Routine screening mammogram of both breasts in 1 year.
== END ==
LOC: RADMAMWWP 15:28
PROVIDERS: ATTEND Family Medicine
DX: Z12.31 Encounter for screening mammogram for malignant neoplasm of breast (principal)
CPT/HCPCS: 77063; 77067

== ENCOUNTER 2019-08-23 18:45 | Inpatient (IN) | payer OTHER, MEDICARE ==
[2019-08-23] MEDS ORDERED: MORPHINE SULFATE 4 MG/ML SYRINGE IV STA (19:02)
--- NOTE | 2019-08-23 19:04 | ED ---
General Adult HPI - General Chief complaint: Abdominal Pain Stated complaint: fluid retention Time Seen by Provider: 08/23/19 18:52 Source: patient Mode of arrival: ambulatory Limitations: no limitations - History of Present Illness Initial comments: Dictation was produced using [employer] dictation software. please excuse any grammatical, word or spelling errors. This patient was cared for during a federal and state declared state of emergency secondary to Covid 19 Chief Complaint: 49-year-old female past medical history of hepatitis, diabetes and hypertension presents with abdominal pain and water again. History of Present Illness: 49-year-old female she has past medical history of fatty liver and hepatitis. She states that she had to have paracentesis performed approximately 1 year ago. Patient states that over the last 2 months she's been gaining abdominal girth. She describes as gaining water. She has diffuse abdominal pain. States that her pain has been getting worse, probably her to come to the emergency department. Denies any fever, chills or night sweats. Patient states she is only gotten paracentesis one other time about 1 year ago. She does have a GI doctor. Denies any diarrhea. No nausea vomiting. The ROS documented in this emergency department record has been reviewed and confirmed by me. Those systems with pertinent positive or negative responses have been documented in the HPI. All other systems are other negative and/or noncontributory. PHYSICAL EXAM: General Impression: Alert and oriented x3, not in acute distress, obese HEENT: Normocephalic atraumatic, extra-ocular movements intact, pupils equal and reactive to light bilaterally, mucous membranes moist. Cardiovascular: Heart regular rate and rhythm Chest: Able to complete full sentences, no retractions, no tachypnea Abdomen: abdomen soft, non-tender, non-distended, no organomegaly Musculoskeletal: Pulses present and equal in all extremities, no peripheral edema Motor: no focal deficits noted Neurological: CN II-XII grossly intact, no focal motor or sensory deficits noted Skin: Intact with no visualized rashes Psych: Normal affect and mood ED course: 49-year-old male presents with abdominal pain and abdominal swelling. Vital signs upon arrival are within acceptable limits. Patient's well- appearing at bedside. Laboratory evaluation obtained. There is findings of macrocytosis. Coag panel is unremarkable. Thrombocytopenia with a platelet count of 81. This appears to be patient's baseline. Coag panel is unremarkable. Metabolic panel is within acceptable limits. There is slight elevation of lipase. Urinalysis is negative. Abdominal ultrasound shows ascites. There also appears to be splenomegaly. Acute abdominal series is negative. Patient be admitted to [facility]. Discussed patient case with Dr. Marin is willing to accept patients care. GI will be on consult. No indication for immediate paracentesis at this time. Patient agreeable with admission. - Related Data Home Medications Medication Instructions Recorded Confirmed Bisoprolol-Hctz 10-6.25 mg [Ziac 1 tab PO HS 09/02/14 09/13/18 10-6.25 MG] Sertraline [Zoloft] 200 mg PO HS 09/02/14 09/13/18 Simvastatin [Zocor] 20 mg PO HS 09/02/14 09/13/18 Zolpidem [Ambien] 10 mg PO HS 09/02/14 09/13/18 cloNIDine HCL [Catapres] 0.1 mg PO BID 09/02/14 09/13/18 glyBURIDE/METFORMIN HCL 2 tab PO BID 09/02/14 09/13/18 [Glucovance 5-500 mg Tablet] Omeprazole 20 mg PO HS 12/29/16 09/13/18 LORazepam [Ativan] 1 mg PO HS PRN 02/04/18 09/13/18 ARIPiprazole [Abilify] 20 mg PO HS 09/13/18 09/13/18 traZODone HCL 100 mg PO HS 09/13/18 09/13/18 Previous Rx's Medication Instructions Recorded Furosemide [Lasix] 40 mg PO BID@0900,1600 #60 tab 09/16/18 Lactulose [Cephulac] 10 gm PO BID #300 ml 09/16/18 Spironolactone [Aldactone] 50 mg PO BID #60 tab 09/16/18 traMADol HCl [Ultram] 50 mg PO Q6H PRN #12 tab 09/17/18 Allergies Allergy/AdvReac Type Severity Reaction Status Date / Time Penicillins Allergy Rash/Hives Verified 08/23/19 18:51 Sulfa (Sulfonamide Allergy Rash/Hives Verified 08/23/19 18:51 Antibiotics) erythromycin base AdvReac Abdominal Verified 08/23/19 18:51 Pain meperidine HCl [From Demerol] AdvReac Confusion Verified 08/23/19 18:51 Review of Systems ROS Statement: Those systems with pertinent positive or pertinent negative responses have been documented in the HPI. ROS Other: All systems not noted in ROS Statement are negative. 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/2010 MRSA MDRO Source:: VRE URINE/ MRSA ABDOMEN Past Surgical History: Section, Hysterectomy Additional Past Surgical History / Comment(s): ophrarectomy Past Anesthesia/Blood Transfusion Reactions: No Reported Reaction Past Psychological History: Bipolar, Depression Smoking Status: Never smoker Past Alcohol Use History: None Reported Past Drug Use History: None Reported - Past Family History Father Family Medical History: COPD, Hyperlipidemia, Hypertension, Renal Disease Mother Family Medical History: Hyperlipidemia, Hypertension General Exam Limitations: no limitations Course Vital Signs 08/23/19 08/23/19 08/23/19 18:48 19:15 20:00 Temperature 98.8 F Pulse Rate 90 83 78 Respiratory 20 16 16 Rate Blood Pressure 115/73 112/68 111/66 O2 Sat by Pulse 96 94 L 94 L Oximetry Medical Decision Making - Lab Data Result diagrams: 08/23/19 19:02 08/23/19 19:02 Lab Results 08/23/19 08/23/19 08/23/19 Range/Units 19:02 19:02 19:02 WBC 4.8 (3.8-10.6) k/uL RBC 4.65 (3.80-5.40) m/uL Hgb 11.5 (11.4-16.0) gm/dL Hct 35.9 (34.0-46.0) % MCV 77.4 L (80.0-100.0) fL MCH 24.8 L (25.0-35.0) pg MCHC 32.0 (31.0-37.0) g/dL RDW 17.1 H (11.5-15.5) % Plt Count 81 L (150-450) k/uL Neutrophils % 64 % Lymphocytes % 28 % Monocytes % 5 % Eosinophils % 2 % Basophils % 0 % Neutrophils # 3.0 (1.3-7.7) k/uL Lymphocytes # 1.4 (1.0-4.8) k/uL Monocytes # 0.2 (0-1.0) k/uL Eosinophils # 0.1 (0-0.7) k/uL Basophils # 0.0 (0-0.2) k/uL Hypochromasia Moderate Anisocytosis Slight Microcytosis Slight PT 12.3 H (9.0-12.0) sec INR 1.2 H (<1.2) APTT 24.5 (22.0-30.0) sec Sodium 139 (137-145) mmol/L Potassium 3.8 (3.5-5.1) mmol/L Chloride 105 (98-107) mmol/L Carbon Dioxide 28 (22-30) mmol/L Anion Gap 6 mmol/L BUN 13 (7-17) mg/dL Creatinine 0.66 (0.52-1.04) mg/dL Est GFR (CKD-EPI)AfAm >90 (>60 ml/min/1.73 sqM) Est GFR (CKD-EPI)NonAf >90 (>60 ml/min/1.73 sqM) Glucose 131 H (74-99) mg/dL Calcium 8.5 (8.4-10.2) mg/dL Total Bilirubin 1.5 H (0.2-1.3) mg/dL AST 90 H (14-36) U/L ALT 32 (4-34) U/L Alkaline Phosphatase 158 H (38-126) U/L NT-Pro-B Natriuret Pep pg/mL Total Protein 7.5 (6.3-8.2) g/dL Albumin 3.1 L (3.5-5.0) g/dL Lipase 473 H (23-300) U/L Urine Color Urine Appearance (Clear) Urine pH (5.0-8.0) Ur Specific [place] (1.001-1.035) Urine Protein (Negative) Urine Glucose (UA) (Negative) Urine Ketones (Negative) Urine Blood (Negative) Urine Nitrite (Negative) Urine Bilirubin (Negative) Urine Urobilinogen (<2.0) mg/dL Ur Leukocyte Esterase (Negative) Urine RBC (0-5) /hpf Urine WBC (0-5) /hpf Ur Squamous Epith Cells (0-4) /hpf Calcium Oxalate Crystal (None) /hpf Urine Bacteria (None) /hpf Urine Mucus (None) /hpf 08/23/19 08/23/19 Range/Units 19:02 20:19 WBC (3.8-10.6) k/uL RBC (3.80-5.40) m/uL Hgb (11.4-16.0) gm/dL Hct (34.0-46.0) % MCV (80.0-100.0) fL MCH (25.0-35.0) pg MCHC (31.0-37.0) g/dL RDW (11.5-15.5) % Plt Count (150-450) k/uL Neutrophils % % Lymphocytes % % Monocytes % % Eosinophils % % Basophils % % Neutrophils # (1.3-7.7) k/uL Lymphocytes # (1.0-4.8) k/uL Monocytes # (0-1.0) k/uL Eosinophils # (0-0.7) k/uL Basophils # (0-0.2) k/uL Hypochromasia Anisocytosis Microcytosis PT (9.0-12.0) sec INR (<1.2) APTT (22.0-30.0) sec Sodium (137-145) mmol/L Potassium (3.5-5.1) mmol/L Chloride (98-107) mmol/L Carbon Dioxide (22-30) mmol/L Anion Gap mmol/L BUN (7-17) mg/dL Creatinine (0.52-1.04) mg/dL Est GFR (CKD-EPI)AfAm (>60 ml/min/1.73 sqM) Est GFR (CKD-EPI)NonAf (>60 ml/min/1.73 sqM) Glucose (74-99) mg/dL Calcium (8.4-10.2) mg/dL Total Bilirubin (0.2-1.3) mg/dL AST (14-36) U/L ALT (4-34) U/L Alkaline Phosphatase (38-126) U/L NT-Pro-B Natriuret Pep 84 pg/mL Total Protein (6.3-8.2) g/dL Albumin (3.5-5.0) g/dL Lipase (23-300) U/L Urine Color Yellow Urine Appearance Clear (Clear) Urine pH 6.0 (5.0-8.0) Ur Specific [place] 1.031 (1.001-1.035) Urine Protein Trace H (Negative) Urine Glucose (UA) Negative (Negative) Urine Ketones Negative (Negative) Urine Blood Negative (Negative) Urine Nitrite Negative (Negative) Urine Bilirubin 1+ H (Negative) Urine Urobilinogen >12.0 (<2.0) mg/dL Ur Leukocyte Esterase Small H (Negative) Urine RBC 1 (0-5) /hpf Urine WBC 5 (0-5) /hpf Ur Squamous Epith Cells 9 H (0-4) /hpf Calcium Oxalate Crystal Rare H (None) /hpf Urine Bacteria Rare H (None) /hpf Urine Mucus Few H (None) /hpf Disposition Clinical Impression: Ascites Disposition: ADMITTED IP TO THIS HOSP Condition: Fair Referrals: Woodrow Richards [Primary Care Provider] - 1-2 days Decision Time: 20:38
[2019-08-23 19:14] LABS: Anisocytosis Slight; Basophils % (A) 0 %; Eosinophils # (A) 0.1 k/uL (0-0.7); Eosinophils % (A) 2 %; HCT 35.9 % (34.0-46.0); HGB 11.5 gm/dL (11.4-16.0); Hypochromasia Moderate; Lymphocytes # (A) 1.4 k/uL (1.0-4.8); Lymphocytes % (A) 28 %; MCH 24.8 pg (25.0-35.0); MCV 77.4 fL (80.0-100.0); Mean Platelet Volume 7.6; Microcytosis Slight; Monocytes # (A) 0.2 k/uL (0-1.0); Monocytes % (A) 5 %; Neutrophils % (A) 64 %; RBC 4.65 m/uL (3.80-5.40); RDW 17.1 % (11.5-15.5); WBC 4.8 k/uL (3.8-10.6)
[2019-08-23 19:23] LABS: ALT 32 U/L (4-34); AST 90 U/L (14-36); African American GFR (CKD) >90 (>60 ml/min/1.73 sqM); Albumin 3.1 g/dL (3.5-5.0); Alkaline Phosphatase 158 U/L (38-126); Anion Gap 6 mmol/L; Blood Urea Nitrogen 13 mg/dL (7-17); Calcium 8.5 mg/dL (8.4-10.2); Carbon Dioxide 28 mmol/L (22-30); Chloride 105 mmol/L (98-107); Glucose 131 mg/dL (74-99); Non-African American GFR(CKD) >90 (>60 ml/min/1.73 sqM); Potassium 3.8 mmol/L (3.5-5.1); Sodium 139 mmol/L (137-145); Total Bilirubin 1.5 mg/dL (0.2-1.3); Total Protein 7.5 g/dL (6.3-8.2)
[2019-08-23 19:25] LABS: Platelet Count 81 k/uL (150-450)
[2019-08-23 19:36] LABS: INR 1.2 (<1.2); Partial Thromboplastin Time 24.5 sec (22.0-30.0); Prothrombin Time 12.3 sec (9.0-12.0)
--- NOTE | 2019-08-23 20:23 | US ---
EXAMINATION TYPE: US abdomen complete DATE OF EXAM: 08/23/2019 COMPARISON: US 2019, CT CLINICAL HISTORY: abdominal pain. Generalized abdominal pain x 1 day. Hx cirrhosis, kidney stones, HT N, Hyperlipidemia, diabetes mellitus. EXAM MEASUREMENTS: Liver Length: 13.5 cm Gallbladder Wall: 0.42 cm CBD: 0.31 cm Spleen: 17.3 cm Right Kidney: 11.7 x 5.2 x 5.4 cm Left Kidney: 11.5 x 4.7 x 4.5 cm Limited exam due to large body habitus and bowel gas. Pancreas: Not visualized due to overlying bowel gas. Liver: Increased echogenicity. Coarsened echotexture. Fluid seen adjacent to liver. Gallbladder: Possible internal echoes versus artifact. Wall appears to be thickened. Evidence for sonographic Flores's sign: No CBD: Limited. Spleen: Appears to be enlarged. Right Kidney: No hydronephrosis or masses seen Left Kidney: No hydronephrosis or masses seen Upper IVC: Not well visualized due to overlying bowel gas. Abd Aorta: Obscured *There appears to be free fluid throughout abdomen. IMPRESSION: Liver is relatively small suggestive of cirrhosis. There is abdominal ascites. No dilated ducts. No gallstones. Moderately severe splenomegaly that shows spleen measuring 17 cm. No evidence of renal mass or obstruction.
--- NOTE | 2019-08-23 20:26 | XR ---
EXAMINATION TYPE: XR abdomen acute w cxr DATE OF EXAM: 08/23/2019 COMPARISON: Chest x-ray 09/17/2018 abdomen x-ray 09/12/2018 HISTORY: Abdominal pain. Fluid retention. TECHNIQUE: 5 views FINDINGS: Heart and mediastinum are normal. Lungs are clear of infiltrate. Bowel gas pattern is jorgito l. There is no sign of intestinal obstruction or pneumoperitoneum. Fecal pattern is normal. There is no evidence of a mass. I see no definite renal calcifications. There is no heart failure. Bony thorax is intact. Spleen appears large. IMPRESSION: No active cardiopulmonary disease. Nonacute abdomen. Possible splenomegaly.
[2019-08-23 20:35] LABS: Appearance,Urine Clear (Clear); Bacteria,Urine Rare /hpf; Bilirubin,Urine 1+ (Negative); Blood,Urine Negative (Negative); Calcium Oxalate Crystals,Urine Rare /hpf; Color,Urine Yellow; Glucose,Urine (UA) Negative (Negative); Ketones,Urine Negative (Negative); Leukocyte Esterase,Urine Small (Negative); Mucus,Urine Few /hpf; Nitrite,Urine Negative (Negative); Protein,Urine Trace (Negative); RBC,Urine 1 /hpf (0-5); Specific Gravity,Urine 1.031 (1.001-1.035); Squamous Epithelial Cell,Urine 9 /hpf (0-4); Urobilinogen,Urine >12.0 mg/dL (<2.0); WBC,Urine 5 /hpf (0-5)
[2019-08-23] MEDS ORDERED: NALOXONE 0.4 MG/ML 1 ML VIAL IV PRN (20:38)
[2019-08-23] MEDS ORDERED: MORPHINE SULFATE 4 MG/ML SYRINGE IV PRN (20:38)
[2019-08-23] MEDS ORDERED: ONDANSETRON 4 MG/2 ML VIAL IVP STA (20:54)
[2019-08-23] MEDS ORDERED: traMADol 50 MG TAB PO PRN (23:36)
[2019-08-23] MEDS ORDERED: ONDANSETRON 4 MG/2 ML VIAL IVP PRN (23:37)
[2019-08-23] MEDS ORDERED: SERTRALINE 100 MG TAB PO SCH (23:45)
[2019-08-23] MEDS: SENNOSIDES-DOCUSATE SODIUM 1 EACH TAB PO SCH (23:55)
[2019-08-23] MEDS: FUROSEMIDE 40 MG TAB PO SCH (23:57)
[2019-08-23] MEDS: cloNIDine HCL 0.1 MG TAB PO SCH (23:57)
[2019-08-23] MEDS: SPIRONOLACTONE 25 MG TAB PO SCH (23:57)
[2019-08-23] MEDS: ZOLPIDEM 10 MG TAB PO SCH (23:58)
[2019-08-23] MEDS: lamoTRIgine 25 MG TAB PO SCH (23:58)
[2019-08-24] MEDS: INSULIN DETEMIR (LEVEMIR) 100 UNIT/ML SYR SQ SCH ×2 (00:37→22:02)
[2019-08-24 00:38] LABS: Glucose,Whole Blood 69 mg/dL (75-99)
[2019-08-24] MEDS ORDERED: traZODone HCL 100 MG TAB PO SCH ×3 (01:00→21:00)
[2019-08-24 01:02] LABS: Glucose,Whole Blood 94 mg/dL (75-99)
--- NOTE | 2019-08-24 01:42 | P.HPIM ---
History of Present Illness H&P Date: 08/23/19 Chief Complaint: abd pain 49-year-old female with cirrhosis, diabetes mellitus Patient comes in due to 1 day history of acute abdominal pain she describes a diffuse abdominal pain 4 out of 10 in severity achy vague in nature no specific aggravating or alleviating factor denies any associated diarrhea or GI bleeding denies any nausea or vomiting denies any fevers or chills denies any recent travel denies any chest pain denies any nausea or vomiting. Denies any trouble breathing. Denies any coughing. Denies any upper respiratory infection symptoms. She reports increase in body weight of 25 pounds over the past 1-1/2 months along with increased abdominal girth patient had paracentesis done about 1 year ago once. Patient contacted her GI doctor who recommended that she goes to the hospital for evaluation for possible tapping U light acute abdominal series she was cleared medically alteration of the abdomen showed splenomegaly and ascites Review of Systems Pertinent positives as noted in HPI. All other systems were reviewed and are negative 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/2010 MRSA MDRO Source:: VRE URINE/ MRSA ABDOMEN Past Surgical History: Section, Hysterectomy Additional Past Surgical History / Comment(s): ophrarectomy Past Anesthesia/Blood Transfusion Reactions: No Reported Reaction Past Psychological History: Bipolar, Depression Smoking Status: Never smoker Past Alcohol Use History: None Reported Past Drug Use History: None Reported - Past Family History Father Family Medical History: COPD, Hyperlipidemia, Hypertension, Renal Disease Mother Family Medical History: Hyperlipidemia, Hypertension Medications and Allergies Home Medications Medication Instructions Recorded Confirmed Type Bisoprolol-Hctz 10-6.25 mg [Ziac 1 tab PO HS 09/02/14 08/23/19 History 10-6.25 MG] Sertraline [Zoloft] 200 mg PO HS 09/02/14 08/23/19 History Zolpidem [Ambien] 10 mg PO HS 09/02/14 08/23/19 History cloNIDine HCL [Catapres] 0.1 mg PO BID 09/02/14 08/23/19 History LORazepam [Ativan] 1 mg PO HS PRN 02/04/18 08/23/19 History ARIPiprazole [Abilify] 20 mg PO HS 09/13/18 08/23/19 History Ergocalciferol [Vitamin D2 50,000 units PO Q7D 08/23/19 08/23/19 History (DRISDOL)] Furosemide [Lasix] 40 mg PO BID 08/23/19 08/23/19 History Insulin Glargine,Hum.rec.anlog 10 units SQ HS 08/23/19 08/23/19 History [Lantus Solostar] Multivit with Calcium,Iron,Min 1 tab PO DAILY 08/23/19 08/23/19 History [Women's Multivitamin] Sennosides-Docusate Sodium 1 tab PO BID 08/23/19 08/23/19 History [Senokot-S] Spironolactone 50 mg PO BID 08/23/19 08/23/19 History glyBURIDE/METFORMIN HCL 1 tab PO AC-BID 08/23/19 08/23/19 History [Glucovance 5-500 mg] lamoTRIgine [LaMICtal] 25 mg PO BID 08/23/19 08/23/19 History traMADol HCl [Ultram] 50 mg PO BID PRN 08/23/19 08/23/19 History Allergies Allergy/AdvReac Type Severity Reaction Status Date / Time Penicillins Allergy Rash/Hives Verified 08/23/19 22:31 Sulfa (Sulfonamide Allergy Rash/Hives Verified 08/23/19 22:31 Antibiotics) erythromycin base AdvReac Abdominal Verified 08/23/19 22:31 Pain meperidine HCl [From Demerol] AdvReac Confusion Verified 08/23/19 22:31 Physical Exam Vitals: Vital Signs Temp Pulse Pulse Resp BP BP Pulse Ox 08/23/19 23:00 98 F 75 18 111/63 92 L 08/23/19 22:23 98.8 F 72 16 101/65 93 L 08/23/19 20:00 78 16 111/66 94 L 08/23/19 19:15 83 16 112/68 94 L 08/23/19 18:48 98.8 F 90 20 115/73 96 Intake and Output 08/23/19 08/23/19 08/24/19 14:59 22:59 06:59 Other: Weight 102.693 kg Constitutional: No acute distress, conversant, pleasant Eyes: Anicteric sclerae, moist conjunctiva, no lid-lag Pupils equal round reactive to light ENMT: NC/AT Oropharynx clear, no erythema, exudates Neck: Supple, FROM, no masses, or JVD No carotid bruits No thyromegaly Lungs: Clear to auscultation Clear to percussion Normal respiratory effort, no accessory muscle use Cardiovascular: Heart regular in rate and rhythm, No murmurs, gallops, or rubs No peripheral edema Abdominal: Soft Slight discomfort over the right side of the abdomen to deep palpation, no guarding, rebound or rigidity, no appreciated transmitted throat or shifting dullness Abdomen moving with respiration Normoactive bowel sounds No hepatomegaly, No splenomegaly No palpable mass No abdominal wall hernia noted Skin: Normal temperature, tone, texture, turgor No induration No subcutaneous nodules No rash, lesions No ulcers Extremities: No digital cyanosis No clubbing Pedal pulses intact and symmetrical Radial pulses intact and symmetrical No calf tenderness Psychiatric: Alert and oriented to person, place and time Appropriate affect fair judgement Neuro Muscles Strength 5/5 in all 4 extremities Sensation to light touch grossly present throughout Cranial nerves II-XII grossly intact No focal sensory deficits Lymphatics: no palpable cervical or supraclavicular , or inguinal lymph nodes Results CBC & Chem 7: 08/23/19 19:02 08/23/19 19:02 Labs: Abnormal Lab Results - Last 24 Hours (Table) 08/23/19 08/23/19 08/23/19 Range/Units 19:02 19:02 19:02 MCV 77.4 L (80.0-100.0) fL MCH 24.8 L (25.0-35.0) pg RDW 17.1 H (11.5-15.5) % Plt Count 81 L (150-450) k/uL PT 12.3 H (9.0-12.0) sec INR 1.2 H (<1.2) Glucose 131 H (74-99) mg/dL Total Bilirubin 1.5 H (0.2-1.3) mg/dL AST 90 H (14-36) U/L Alkaline Phosphatase 158 H (38-126) U/L Albumin 3.1 L (3.5-5.0) g/dL Lipase 473 H (23-300) U/L Urine Protein (Negative) Urine Bilirubin (Negative) Ur Leukocyte Esterase (Negative) Ur Squamous Epith Cells (0-4) /hpf Calcium Oxalate Crystal (None) /hpf Urine Bacteria (None) /hpf Urine Mucus (None) /hpf 08/23/19 Range/Units 20:19 MCV (80.0-100.0) fL MCH (25.0-35.0) pg RDW (11.5-15.5) % Plt Count (150-450) k/uL PT (9.0-12.0) sec INR (<1.2) Glucose (74-99) mg/dL Total Bilirubin (0.2-1.3) mg/dL AST (14-36) U/L Alkaline Phosphatase (38-126) U/L Albumin (3.5-5.0) g/dL Lipase (23-300) U/L Urine Protein Trace H (Negative) Urine Bilirubin 1+ H (Negative) Ur Leukocyte Esterase Small H (Negative) Ur Squamous Epith Cells 9 H (0-4) /hpf Calcium Oxalate Crystal Rare H (None) /hpf Urine Bacteria Rare H (None) /hpf Urine Mucus Few H (None) /hpf Thrombosis Risk Factor Assmnt - Choose All That Apply Any of the Below Risk Factors Present?: Yes Each Factor Represents 1 point: Obesity (BMI >25) Thrombosis Risk Factor Assessment Total Risk Factor Score: 1 Thrombosis Risk Factor Assessment Level: Low Risk Assessment and Plan Assessment: 49-year-old female with cirrhosis comes in due to abdominal pain and increased weight with increased abdominal girth. Admitted for evaluation of ascites and possible thoracentesis with anticipated length of stay less than two midnight Liver cirrhosis with ascites Abdominal discomfort Abdominal ultrasound showed ascites GI evaluation for possible abdominal tapping paracentesis for comfort Monitor vital signs no leukocytosis no fever elected to have secondary bacterial peritonitis, will check peritoneal fluids for culture and cell count Thrombocytopenia most likely second to underlying cirrhosis Microcytosis without anemia Continue to monitor Patient denies GI bleeding Diabetes mellitus Insulin sliding scale Resume home meds Hypertension Resume home meds CODE STATUS: Full code DVT prophylaxis: Mechanical Discussed with: Patient, ER, RN Anticipated length of stay less than [address]: Home A total of 70 minutes was spent on the care of this complex patient more than 50% of the time was spent in counseling and care coordination.
[2019-08-24] MEDS: SODIUM CHLORIDE 0.9% 1,000 ML IV SCH ×2 (02:17→22:06)
[2019-08-24 07:11] LABS: Glucose,Whole Blood 160 mg/dL (75-99)
[2019-08-24] MEDS: lamoTRIgine 25 MG TAB PO SCH ×2 (09:00→22:02)
[2019-08-24] MEDS: SENNOSIDES-DOCUSATE SODIUM 1 EACH TAB PO SCH ×2 (09:00→22:01)
[2019-08-24] MEDS: INSULIN ASPART (NovoLOG) 100 UNIT/ML VIAL SQ SCH ×5 (09:00→22:04)
--- NOTE | 2019-08-24 10:09 | P.PN ---
Subjective Progress Note Date: 08/24/19 Principal diagnosis: Abdominal pain Patient still complaining of abdominal distention and pain. No nausea or vomiting. No fevers or chills. Objective - Vital Signs Vital signs: Vital Signs Temp 98.3 F 08/24/19 05:59 Pulse 83 08/24/19 05:59 Resp 16 08/24/19 05:59 BP 100/61 08/24/19 05:59 Pulse Ox 94 L 08/24/19 05:59 Intake & Output 08/23/19 08/24/19 08/24/19 18:59 06:59 18:59 Weight 102.693 kg 102.693 kg Other: Voiding Method Toilet # Voids 1 - Exam Constitutional: No acute distress, conversant, pleasant Eyes:Anicteric sclerae, moist conjunctiva, no lid-lag, PERRLA, ENMT: Oropharynx clear, no erythema, exudates Neck: Supple, FROM, no masses, or JVD, No carotid bruits, No thyromegaly Lungs: Clear to auscultation, Clear to percussion, Normal respiratory effort, no accessory muscle use Cardiovascular: Heart regular in rate and rhythm, No murmurs, gallops, or rubs, No peripheral edema Abdominal: Soft, distended, diffusely tender, no guarding, rebound or rigidity, Normoactive bowel sounds, No hepatomegaly, No splenomegaly, No palpable mass Skin: Normal temperature, tone, texture, turgor, no induration, No subcutaneous nodules, No rash, lesions, No ulcers Extremities: No digital cyanosis, No clubbing, Pedal pulses intact and symmetrical, Radial pulses intact and symmetrical, No calf tenderness Psychiatric: Alert and oriented to person, place and time, appropriate affect, intact judgement Neuro: Muscles Strength 5/5 in all 4 extremities, Sensation to light touch grossly present throughout, Cranial nerves II-XII grossly intact, no focal sensory deficits - Labs CBC & Chem 7: 08/23/19 19:02 08/23/19 19:02 Labs: Abnormal Lab Results - Last 24 Hours (Table) 08/23/19 08/23/19 08/23/19 Range/Units 19:02 19:02 19:02 MCV 77.4 L (80.0-100.0) fL MCH 24.8 L (25.0-35.0) pg RDW 17.1 H (11.5-15.5) % Plt Count 81 L (150-450) k/uL PT 12.3 H (9.0-12.0) sec INR 1.2 H (<1.2) Glucose 131 H (74-99) mg/dL POC Glucose (mg/dL) (75-99) mg/dL Total Bilirubin 1.5 H (0.2-1.3) mg/dL AST 90 H (14-36) U/L Alkaline Phosphatase 158 H (38-126) U/L Albumin 3.1 L (3.5-5.0) g/dL Lipase 473 H (23-300) U/L Urine Protein (Negative) Urine Bilirubin (Negative) Ur Leukocyte Esterase (Negative) Ur Squamous Epith Cells (0-4) /hpf Calcium Oxalate Crystal (None) /hpf Urine Bacteria (None) /hpf Urine Mucus (None) /hpf 08/23/19 08/24/19 08/24/19 Range/Units 20:19 00:36 07:09 MCV (80.0-100.0) fL MCH (25.0-35.0) pg RDW (11.5-15.5) % Plt Count (150-450) k/uL PT (9.0-12.0) sec INR (<1.2) Glucose (74-99) mg/dL POC Glucose (mg/dL) 69 L 160 H (75-99) mg/dL Total Bilirubin (0.2-1.3) mg/dL AST (14-36) U/L Alkaline Phosphatase (38-126) U/L Albumin (3.5-5.0) g/dL Lipase (23-300) U/L Urine Protein Trace H (Negative) Urine Bilirubin 1+ H (Negative) Ur Leukocyte Esterase Small H (Negative) Ur Squamous Epith Cells 9 H (0-4) /hpf Calcium Oxalate Crystal Rare H (None) /hpf Urine Bacteria Rare H (None) /hpf Urine Mucus Few H (None) /hpf Assessment and Plan Plan: Liver cirrhosis secondary to Becker with ascites/Abdominal discomfort secondary to ascites GI evaluation Consult for interventional radiology placed for paracentesis, therapeutic and diagnostic Check peritoneal fluids for culture and cell count to rule out peritonitis, check cytology to rule out cancer Thrombocytopenia most likely second to underlying cirrhosis Microcytosis without anemia Continue to monitor Patient denies GI bleeding Diabetes mellitus Insulin sliding scale Resume home meds Hypertension Resume home meds
[2019-08-24 11:09] LABS: Glucose,Whole Blood 218 mg/dL (75-99)
[2019-08-24] MEDS: SERTRALINE 100 MG TAB PO SCH (13:13)
[2019-08-24] MEDS: FUROSEMIDE 40 MG TAB PO SCH ×2 (13:14→22:01)
[2019-08-24] MEDS: cloNIDine HCL 0.1 MG TAB PO SCH ×2 (14:49→22:02)
[2019-08-24] MEDS: SPIRONOLACTONE 25 MG TAB PO SCH ×2 (14:50→22:02)
[2019-08-24 15:20] LABS: Appearance,BF Cloudy; Color,BF Yellow; Nucleated Cells, Body Fluid 124 /uL; RBC, Body Fluid 315 /uL
[2019-08-24 15:24] LABS: Mononuclear WBC,Body Fluid 95 %; Polynuclear WBC,Body Fluid 5 %; Total Cells Counted,Body Fluid 100
[2019-08-24] MEDS ORDERED: IBUPROFEN 400 MG TAB PO STA (16:56)
[2019-08-24 17:31] LABS: Glucose,Whole Blood 121 mg/dL (75-99)
[2019-08-24 19:59] LABS: Glucose,Whole Blood 189 mg/dL (75-99)
[2019-08-24 21:58] VITALS: RESP 16
[2019-08-24] MEDS: ZOLPIDEM 10 MG TAB PO SCH (22:01)
--- NOTE | 2019-08-24 22:49 | CONS ---
CONSULTATION DATE OF DICTATION: 08/24/2019 REASON FOR CONSULTATION: Abdominal distention and abdominal pain. HISTORY OF PRESENT ILLNESS: The patient is a 49-year-old pleasant white female with history of fatty liver disease cirrhosis of the liver diagnosed a year ago and follows with Dr. Read on an outpatient basis and in fact was just seen by him a month ago. She is maintained on Lasix 40 mg twice daily as well as Aldactone 50 mg twice daily on an outpatient basis. For the last few weeks she gained about 25 pounds and was complaining of abdominal distention and abdominal discomfort and hence she came to the emergency room last night. She had an ultrasound done which showed evidence of a moderate amount of ascites. She was admitted to the hospital and she is scheduled for paracentesis today. Her last paracentesis was a year ago. The patient denies any alcohol abuse. She reports no nausea or vomiting. No rectal bleeding or melena. PAST MEDICAL HISTORY: Diabetes mellitus, hypertension, hyperlipidemia and fatty liver disease with cirrhosis of the liver diagnosed a year ago. PAST SURGICAL HISTORY: , hysterectomy and oophorectomy. MEDICATIONS: Medications at home include Zoloft, bisoprolol, catapres, Ambien, Ativan, Abilify, Drisdol, Lasix, insulin, multivitamin, Senokot, metformin, Lamictal and Ultram. ALLERGIES: PENICILLIN, SULFA, ERYTHROMYCIN AND DEMEROL. SOCIAL HISTORY: No smoking. No alcohol use. FAMILY HISTORY: Father with hypertension and hyperlipidemia. Mother has hypertension and hyperlipidemia. REVIEW OF SYSTEMS: CARDIOPULMONARY: No chest pain or shortness of breath. GENITOURINARY: No dysuria or hematuria. MUSCULOSKELETAL: Unremarkable. SKIN: Unremarkable. ENDOCRINE: Unremarkable. PSYCHIATRIC: Unremarkable. NEUROLOGY: Unremarkable. ENT/VISION: Unremarkable. CONSTITUTIONAL: Weight loss of 25 pounds but no fever, chills or night sweats. PHYSICAL EXAMINATION: She appears comfortable. No apparent distress. Vital signs are stable. Blood pressure is 104/69, pulse rate 81, temperature 98.7. HEENT examination unremarkable. Conjunctivae pink. Sclerae anicteric. Oral cavity no lesions. NECK: No JVD or lymph node enlargement. CHEST: Clear to auscultation. HEART: Regular rate and rhythm. ABDOMEN: Obese. There was some free fluid noted. There was mild tenderness in the left lower quadrant area. Rest of the abdomen was benign. Bowel sounds are positive. No organomegaly. EXTREMITIES: No pedal edema. SKIN: No rashes. NEUROLOGIC: Alert and oriented x3. No focal deficits. LABS: Labs from yesterday: WBC 4.8, hemoglobin 11.5, platelets 81,000. PT/INR is 1.2. AST 90, ALT 32, T-bilirubin 1.5 and alkaline phosphatase 158. Albumin 3.1. Lipase 473. COVID-19 is negative. Serum alcohol level is less than 10. IMPRESSION: 1. This is a lady who presents to the hospital with abdominal distention and weight gain of 25 pounds in the last 2 months' duration, prior history of fatty liver disease with cirrhosis of the liver diagnosed by Dr. Read about a year ago, maintained on Lasix 40 mg twice daily and Aldactone 50 mg twice daily. Clinically and on recent ultrasound of the abdomen she does have moderate amount of ascites. 2. Mild elevation of serum transaminases, likely secondary to underlying cirrhosis of the liver. 3. History of diabetes mellitus. 4. History of hyperlipidemia. RECOMMENDATIONS: 1. Continue with Lasix 40 mg twice daily and Aldactone 50 mg twice daily. 2. Low-salt diet. 3. Schedule her for large-volume paracentesis for diagnostic and therapeutic purposes. 4. If her symptoms improve, she can be discharged home tomorrow with outpatient followup with Dr. Read in a week. Thank you for this consultation. MMODL / ROSALBAN: [id number] /
[2019-08-24 23:44] LABS: Total Protein, Body Fluid 1040 mg/dL
[2019-08-24 23:58] LABS: Glucose, BF Source Paracentesis Fluid; Glucose, Body Fluid 206 mg/dL
[2019-08-25] MEDS: IBUPROFEN 400 MG TAB PO PRN ×2 (00:26→08:34)
[2019-08-25 05:09] VITALS: BP 90/61; PULSE 73; TEMP 97.6
[2019-08-25 07:01] LABS: Glucose,Whole Blood 159 mg/dL (75-99)
[2019-08-25] MEDS: lamoTRIgine 25 MG TAB PO SCH (08:28)
[2019-08-25] MEDS: SERTRALINE 100 MG TAB PO SCH (08:29)
[2019-08-25] MEDS: INSULIN ASPART (NovoLOG) 100 UNIT/ML VIAL SQ SCH ×2 (08:29→11:56)
[2019-08-25] MEDS: SENNOSIDES-DOCUSATE SODIUM 1 EACH TAB PO SCH (08:29)
--- NOTE | 2019-08-25 09:04 | US ---
Ultrasound-guided paracentesis. DATE OF EXAM: 08/24/2019 CLINICAL HISTORY: Ascites The procedure was discussed with the patient. The risks, complications, benefits, and alternatives we re discussed and any questions were answered. Informed consent was obtained. The patient was placed s upine on the ultrasound table and prepped and draped in the usual sterile fashion. All elements of maximal barrier technique were utilized. Under ultrasound guidance, access into the right lower quadrant was obtained, via the paracentesis catheter system and direct ultrasound guidanc e. Approximately 0.26 liters of straw-colored fluid was removed. The patient was stable throughout the p rocedure and remained stable upon discharge from Department of Radiology. Sample sent to pathology fo r analysis. IMPRESSION: Successful paracentesis under ultrasound guidance.
[2019-08-25 11:21] LABS: Glucose,Whole Blood 126 mg/dL (75-99)
[2019-08-25 11:39] LABS: ALT 30 U/L (4-34); AST 65 U/L (14-36); African American GFR (CKD) >90 (>60 ml/min/1.73 sqM); Albumin 2.4 g/dL (3.5-5.0); Alkaline Phosphatase 140 U/L (38-126); Amylase 37 U/L (30-110); Anion Gap 2 mmol/L; Blood Urea Nitrogen 14 mg/dL (7-17); Calcium 7.7 mg/dL (8.4-10.2); Carbon Dioxide 34 mmol/L (22-30); Chloride 102 mmol/L (98-107); Glucose 110 mg/dL (74-99); Magnesium 1.7 mg/dL (1.6-2.3); Non-African American GFR(CKD) >90 (>60 ml/min/1.73 sqM); Potassium 3.2 mmol/L (3.5-5.1); Sodium 138 mmol/L (137-145); Total Bilirubin 0.9 mg/dL (0.2-1.3); Total Protein 6.2 g/dL (6.3-8.2)
[2019-08-25] MEDS ORDERED: POTASSIUM CHLORIDE ER 20 MEQ TAB.ER PO STA (11:45)
--- NOTE | 2019-08-25 11:53 | P.DS ---
Providers Date of admission: 08/23/19 20:39 Expected date of discharge: 08/25/19 Attending physician: Rodney Little MD Consults: 08/23/19 20:35 Consult Physician Routine Consulting Provider: Nate Read Consult Reason/Comments: ascites, abdominal pain Do you want consulting provider notified?: Yes Primary care physician: [facility] Course: 49-year-old female with cirrhosis COLE induced, diabetes mellitus type 2 presented because of 1 day history of acute abdominal pain she describes a diffuse abdominal bloating, 4 out of 10 in severity, worse with eating. Has some nausea but no vomiting. No associated diarrhea or GI bleeding . No fevers or chills. Had increased weight gain of 20 pounds in the last few weeks. No cp or sob. No coughing, upper respiratory infection symptoms. About one year ago she did have a paracentesis done due to increased ascites. Patient contacted her GI doctor who recommended that she goes to the hospital for evaluation for possible repeat paracentesis. Evaluation in the emergency department abdominal x-ray revealed no bowel obstructive process. On exam she did have some epigastric tenderness. No acute abdomen. Ultrasound revealed no gallstones or bile duct obstruction. It however showed splenomegaly and a small liver consistent with cirrhosis. Laboratory evaluation revealed slightly elevated INR 1.2, elevated bilirubin 1.5. Slightly elevated lipase at 473. Elevated lipase was consistent with cirrhosis, no acute pancreatitis likely. Patient had paracentesis done with 200 mL of fluid taken out, the radiologist could not take out more than that. Patient continues to feel bloated even after this procedure. She was seen by GI who did not have any further recommendations. Patient's symptoms could be related to gastritis versus gastric ulcer versus GERD/dyspepsia. She will be prescribed some omeprazole upon discharge. Patient will be discharged home in a stable condition. She was instructed to follow-up with her primary care physician as well as her GI doctor. Time for discharge 35 minutes. Patient Condition at Discharge: Fair Plan - Discharge Summary New Discharge Prescriptions: New Omeprazole [PriLOSEC] 20 mg PO AC-BRKFST 30 Days #30 cap Continue Zolpidem [Ambien] 10 mg PO HS Sertraline [Zoloft] 200 mg PO HS LORazepam [Ativan] 1 mg PO HS PRN PRN Reason: Anxiety ARIPiprazole [Abilify] 20 mg PO HS Insulin Glargine,Hum.rec.anlog [Lantus Solostar] 10 units SQ HS Ergocalciferol [Vitamin D2 (DRISDOL)] 50,000 units PO Q7D traMADol HCl [Ultram] 50 mg PO BID PRN PRN Reason: Pain glyBURIDE/METFORMIN HCL [Glucovance 5-500 mg] 1 tab PO AC-BID Furosemide [Lasix] 40 mg PO BID Spironolactone 50 mg PO BID Sennosides-Docusate Sodium [Senokot-S] 1 tab PO BID lamoTRIgine [LaMICtal] 25 mg PO BID Multivit with Calcium,Iron,Min [Women's Multivitamin] 1 tab PO DAILY Discontinued cloNIDine HCL [Catapres] 0.1 mg PO BID Bisoprolol-Hctz 10-6.25 mg [Ziac 10-6.25 MG] 1 tab PO HS Discharge Medication List Sertraline [Zoloft] 200 mg PO HS 09/02/14 [History] Zolpidem [Ambien] 10 mg PO HS 09/02/14 [History] LORazepam [Ativan] 1 mg PO HS PRN 02/04/18 [History] ARIPiprazole [Abilify] 20 mg PO HS 09/13/18 [History] Ergocalciferol [Vitamin D2 (DRISDOL)] 50,000 units PO Q7D 08/23/19 [History] Furosemide [Lasix] 40 mg PO BID 08/23/19 [History] Insulin Glargine,Hum.rec.anlog [Lantus Solostar] 10 units SQ HS 08/23/19 [History] Multivit with Calcium,Iron,Min [Women's Multivitamin] 1 tab PO DAILY 08/23/19 [History] Sennosides-Docusate Sodium [Senokot-S] 1 tab PO BID 08/23/19 [History] Spironolactone 50 mg PO BID 08/23/19 [History] glyBURIDE/METFORMIN HCL [Glucovance 5-500 mg] 1 tab PO AC-BID 08/23/19 [History] lamoTRIgine [LaMICtal] 25 mg PO BID 08/23/19 [History] traMADol HCl [Ultram] 50 mg PO BID PRN 08/23/19 [History] Omeprazole [PriLOSEC] 20 mg PO AC-BRKFST 30 Days #30 cap 08/25/19 [Rx] Follow up Appointment(s)/Referral(s): Woodrow Richards [Primary Care Provider] - 1-2 days (The office is closed please call on thursday to schedule your follow up appointment.) Nate Read MD [STAFF PHYSICIAN] - 08/26/19 (has appointment Thursday)
[2019-08-25] MEDS: SPIRONOLACTONE 25 MG TAB PO SCH (12:02)
--- NOTE | 2019-08-25 17:39 | PN ---
PROGRESS NOTE DATE OF DICTATION: 08/25/2019 The patient is a 49-year-old pleasant white female with a history of non-alcoholic fatty liver disease and cirrhosis of the liver, admitted to the hospital with abdominal distention. She underwent large-volume paracentesis yesterday and approximately 200 mL of fluid was removed. She is presently on Lasix 40 mg b.i.d. and Aldactone 50 mg b.i.d. and doing much better. She still has some abdominal distention. No abdominal pain. No nausea, vomiting. She wants to go home. PHYSICAL EXAMINATION: Appears comfortable. No apparent distress. VITAL SIGNS: Stable. Blood pressure 90/61, pulse rate 73, temperature 97.6. HEENT examination unremarkable. Conjunctivae pink. Sclerae anicteric. Oral cavity no lesions. NECK: No JVD or lymph node enlargement. CHEST: Clear to auscultation. ABDOMEN: Soft. Bowel sounds are positive. No organomegaly. EXTREMITIES: No pedal edema. NEUROLOGIC: Alert and oriented x3. No focal deficits. LABS: Basic metabolic panel is within normal limits. AST and ALT are 65 and 30, respectively. T-bilirubin 0.9, alkaline phosphatase 140. BUN and creatinine are within normal limits. IMPRESSION: 1. Non-alcoholic cirrhosis of the liver with portal hypertension and ascites with gradual decompensation. 2. Ascites, status post large-volume paracentesis; only 200 mL of fluid was removed. Results are pending. Presently on Lasix 40 b.i.d. and Aldactone 50 b.i.d. and doing well. 3. History of diabetes mellitus and hypertension and hyperlipidemia. RECOMMENDATIONS: 1. Await fluid analysis. 2. Continue with current diuretic regimen. 3. Low-salt diet. 4. If the patient is discharged home today, she was advised to follow up with Dr. Read in a week. Thank you for this consultation. MMODL / IJN: [id number] /
== END 2019-08-25 15:19 | disposition home or self-care (01) | DRG 433 ==
LOC: EC 18:45 → 5NMEDONC 20:39 → OBSVTOIN 08-25 11:31
PROVIDERS: ADMIT Internal Medicine; ATTEND Internal Medicine
PROC: 0W9G3ZX Drainage of Peritoneal Cavity, Percutaneous Approach, Diagnostic (ICD-10-PCS; principal; 2019-08-24)
DX: K74.60 Unspecified cirrhosis of liver (principal); K76.6 Portal hypertension; R18.8 Other ascites; D69.59 Other secondary thrombocytopenia; E11.9 Type 2 diabetes mellitus without complications; E66.9 Obesity, unspecified; Z11.59 Encounter for screening for other viral diseases; K75.81 Nonalcoholic steatohepatitis (NASH); I10 Essential (primary) hypertension; E78.5 Hyperlipidemia, unspecified; F32.9 Major depressive disorder, single episode, unspecified; Z68.38 Body mass index [BMI] 38.0-38.9, adult; R16.1 Splenomegaly, not elsewhere classified; R71.8 Other abnormality of red blood cells; Z79.4 Long term (current) use of insulin; Z79.899 Other long term (current) drug therapy; Z86.14 Personal history of Methicillin resistant Staphylococcus aureus infection; Z86.19 Personal history of other infectious and parasitic diseases; Z90.710 Acquired absence of both cervix and uterus; Z98.890 Other specified postprocedural states; Z98.891 History of uterine scar from previous surgery; Z88.1 Allergy status to other antibiotic agents; Z88.5 Allergy status to narcotic agent; Z88.0 Allergy status to penicillin; Z88.2 Allergy status to sulfonamides; Z82.49 Family history of ischemic heart disease and other diseases of the circulatory system; Z83.49 Family history of other endocrine, nutritional and metabolic diseases; Z82.5 Family history of asthma and other chronic lower respiratory diseases; Z84.1 Family history of disorders of kidney and ureter
CPT/HCPCS: 36415; 49083; 74022; 76700; 80053; 80320; 81001; 82150; 82945; 83690; 83735; 83880; 84157; 85025; 85610; 85730; 87070; 87075; 87205; 87635; 88108; 88305; 89050; 96374; 96375; 99285

== ENCOUNTER 2019-09-06 12:29 | Inpatient (IN) | payer OTHER, MEDICARE ==
--- NOTE | 2019-09-06 13:12 | ED ---
General Adult HPI <Yanick Dubois - Last Filed: 09/06/19 16:52> - General Source: patient, RN notes reviewed, old records reviewed Mode of arrival: ambulatory Limitations: no limitations <Jose A Aguilera - Last Filed: 09/06/19 20:28> - General Chief complaint: Abdominal Pain Stated complaint: Abd pain Time Seen by Provider: 09/06/19 12:43 - History of Present Illness Initial comments: 49-year-old female patient past history significant for diabetes, hypertension hyperlipidemia, nonalcoholic fatty liver disease resulting in liver cirrhosis and ascites present to ED with chief complaint of abdominal distention and pain. Patient reports that she was seen approximately 2 weeks ago at [facility] which underwent a paracentesis that removed approximately 200 mL of fluid however she is still felt bloated had abdominal pain since. She reports that the abdominal pains in the epigastric region. She also had nausea and vomiting had 1 episode earlier today. Patient was seen by her primary care provider prior to evaluation the ED and he recommended a CT of the abdomen and pelvis. Patient denies any chest pain or shortness of breath, she does note that her heart rate has been increased at home since she was taken off the beta grant after her admission. She denies any other complaints at this time. Systemic: Pt denies fatigue, fever/chills, rash. Pt denies weakness, night sweats, weight loss. Neuro: Pt denies headache, visual disturbances, syncope or pre-syncope. HEENT: Pt denies ocular discharge or irritation, otalgia, rhinorrhea, pharyngitis or notable lymphadenopathy. Cardiopulmonary: Pt denies chest pain, SOB, heart palpitations, dyspnea on exertion. : Pt denies dysuria, burning w/ urination, frequency/urgency. Denies new onset urinary or bowel incontinence. MSK: Pt denies myalgia, loss of strength or function in extremities. Neuro: Pt denies new onset weakness, paresthesias. (Jose A Aguilera) - Related Data Home Medications Medication Instructions Recorded Confirmed Sertraline [Zoloft] 200 mg PO HS 09/02/14 08/23/19 Zolpidem [Ambien] 10 mg PO HS 09/02/14 08/23/19 LORazepam [Ativan] 1 mg PO HS PRN 02/04/18 08/23/19 ARIPiprazole [Abilify] 20 mg PO HS 09/13/18 08/23/19 Ergocalciferol [Vitamin D2 50,000 units PO Q7D 08/23/19 08/23/19 (DRISDOL)] Furosemide [Lasix] 40 mg PO BID 08/23/19 08/23/19 Insulin Glargine,Hum.rec.anlog 10 units SQ HS 08/23/19 08/23/19 [Lantus Solostar] Multivit with Calcium,Iron,Min 1 tab PO DAILY 08/23/19 08/23/19 [Women's Multivitamin] Sennosides-Docusate Sodium 1 tab PO BID 08/23/19 08/23/19 [Senokot-S] Spironolactone 50 mg PO BID 08/23/19 08/23/19 glyBURIDE/METFORMIN HCL 1 tab PO AC-BID 08/23/19 08/23/19 [Glucovance 5-500 mg] lamoTRIgine [LaMICtal] 25 mg PO BID 08/23/19 08/23/19 traMADol HCl [Ultram] 50 mg PO BID PRN 08/23/19 08/23/19 Previous Rx's Medication Instructions Recorded Omeprazole [PriLOSEC] 20 mg PO AC-BRKFST 30 Days #30 cap 08/25/19 Allergies Allergy/AdvReac Type Severity Reaction Status Date / Time Penicillins Allergy Rash/Hives Verified 09/06/19 12:32 Sulfa (Sulfonamide Allergy Rash/Hives Verified 09/06/19 12:32 Antibiotics) erythromycin base AdvReac Abdominal Verified 09/06/19 12:32 Pain meperidine HCl [From Demerol] AdvReac Confusion Verified 09/06/19 12:32 Review of Systems ROS Other: All systems not noted in ROS Statement are negative. <Yanick Dubois - Last Filed: 09/06/19 16:52> ROS Other: All systems not noted in ROS Statement are negative. <Jose A Aguilera - Last Filed: 09/06/19 20:28> ROS Statement: Those systems with pertinent positive or pertinent negative responses have been documented in the HPI. 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/2010 MRSA MDRO Source:: VRE URINE/ MRSA ABDOMEN Past Surgical History: Section, Hysterectomy Additional Past Surgical History / Comment(s): ophrarectomy Past Anesthesia/Blood Transfusion Reactions: No Reported Reaction Past Psychological History: Bipolar, Depression Smoking Status: Never smoker Past Alcohol Use History: None Reported Past Drug Use History: None Reported - Past Family History Father Family Medical History: COPD, Hyperlipidemia, Hypertension, Renal Disease Mother Family Medical History: Hyperlipidemia, Hypertension <Jose A Aguilera - Last Filed: 09/06/19 20:28> General Exam Limitations: no limitations <Jose A Aguilera - Last Filed: 09/06/19 20:28> - General Exam Comments Initial Comments: Constitutional: NAD, AOX3, Pt has pleasant affect. HEENT: NC/AT, trachea midline, neck supple, no lymphadenopathy. Posterior pharynx non erythematous, without exudates. External ears appear normal, without discharge. Mucous membranes moist. Eyes PERRLA, EOM intact. There is no scleral icterus. No pallor noted. Cardiopulmonary: RRR, no murmurs, rubs or gallops, no JVD noted. Lungs CTAB in anterior and posterior kevin. No peripheral edema. Abdominal exam: Abdomen soft and moderately-distended. Abdomen mildly tender to palpation in epigastric region.. Bowel sounds active in LLQ. No hepatosplenomegaly. No ecchymosis Neuro: CN II-XII grossly intact. No nuchal rigidity. No raccon eyes, no hernandez sign, no hemotympanum. No cervical spinal tenderness. MSK: No posterior calf tenderness bilaterally, homans sign negative bilaterally. Posterior tibialis and radial pulse +2 bilaterally. Sensation intact in upper a nd lower extremities. Full active ROM in upper and lower extremities, 5/5 stregnth. (Jose A Aguilera) Course Vital Signs 09/06/19 09/06/19 09/06/19 12:32 13:09 13:39 Temperature 98.5 F Pulse Rate 144 H 122 H 115 H Pulse Rate [ Pulse Oximetery ] Respiratory 18 18 18 Rate Blood Pressure 157/91 135/79 145/85 Blood Pressure [Left Arm] O2 Sat by Pulse 95 94 L 94 L Oximetry 09/06/19 09/06/19 09/06/19 15:07 16:00 18:09 Temperature 98.2 F Pulse Rate 114 H 118 H Pulse Rate [ 115 H Pulse Oximetery ] Respiratory 18 18 18 Rate Blood Pressure 164/88 153/94 Blood Pressure 123/60 [Left Arm] O2 Sat by Pulse 96 93 L 93 L Oximetry 09/06/19 18:30 Temperature 98.2 F Pulse Rate 115 H Pulse Rate [ Pulse Oximetery ] Respiratory 18 Rate Blood Pressure 145/82 Blood Pressure [Left Arm] O2 Sat by Pulse 95 Oximetry Medical Decision Making - Lab Data Result diagrams: 09/06/19 13:06 09/06/19 13:06 <Yanick Dubois - Last Filed: 09/06/19 16:52> - Lab Data Result diagrams: 09/06/19 13:06 09/06/19 13:06 - EKG Data -: EKG Interpreted by Me (and Dr. Dubois ) <Jose A Aguilera - Last Filed: 09/06/19 20:28> - Medical Decision Making Patient reevaluated and reexamined by myself, Dr. Dubois. Patient resting comfortably in bed. Abdomen does have significant distention. Patient states she just had it drained a week ago. Patient does feel dehydrated. Patient states decreased oral intake the past couple of days. Patient does see GI, I do agree with PA findings. This includes diagnostic interpretation and treatment plan. Case was discussed in detail with Dr. Charla walker, who will admit covering for dr danny [email or web address] Physical exam: Heart rate tachycardic Lungs sounds are clear to auscultation Refill less than 2 seconds Abdomen distended and nontender. Pulses 2/4 bilateral dorsalis pedis Skin normal color (Yanick Dubois) 49-year-old female patient past history significant for diabetes, hypertension hyperlipidemia, nonalcoholic fatty liver disease resulting in liver cirrhosis and ascites present to ED with chief complaint of abdominal distention and pain. Patient reports that she was seen approximately 2 weeks ago at [facility] which underwent a paracentesis that removed approximately 200 mL of fluid however she is still felt bloated had abdominal pain since. She reports that the abdominal pains in the epigastric region. She also had nausea and vomiting had 1 episode earlier today. Patient was seen by her primary care provider prior to evaluation the ED and he recommended a CT of the abdomen and pelvis. Patient denies any chest pain or shortness of breath, she does note that her heart rate has been increased at home since she was taken off the beta grant after her admission. She denies any other complaints at this time. Patient vital signs displayed mild tachycardia. Physical exam displayed a distended abdomen consistent with ascites. Mild tenderness in epigastric region. Laboratory investigations were obtained, leukocytosis of 12.2, lactic acid 4.8, bilirubin 2.5, AST ALT mildly elevated. Troponin negative. UA displayed +[address] abdomen and pelvis correlate for hepatic cirrhosis and splenomegaly diffuse ascites is noted. Compression fracture L1. Patient was previously aware of this. Limited assessment of colon. Due to patient's fluid status due to her ascites 500 mL bolus was administered. Pt was administered one gram rocephin prophylactically. Pt will be admitted for ascities. Case discussed with Dr. Dubois. (Jose A Aguilera) - Lab Data Lab Results 09/06/19 09/06/19 09/06/19 Range/Units 13:06 13:06 13:06 WBC 12.2 H (3.8-10.6) k/uL RBC 4.87 (3.80-5.40) m/uL Hgb 12.0 (11.4-16.0) gm/dL Hct 38.2 (34.0-46.0) % MCV 78.6 L (80.0-100.0) fL MCH 24.7 L (25.0-35.0) pg MCHC 31.4 (31.0-37.0) g/dL RDW 18.6 H (11.5-15.5) % Plt Count 116 L (150-450) k/uL Neutrophils % 85 % Lymphocytes % 8 % Monocytes % 4 % Eosinophils % 1 % Basophils % 0 % Neutrophils # 10.3 H (1.3-7.7) k/uL Lymphocytes # 1.0 (1.0-4.8) k/uL Monocytes # 0.5 (0-1.0) k/uL Eosinophils # 0.1 (0-0.7) k/uL Basophils # 0.0 (0-0.2) k/uL Hypochromasia Marked Poikilocytosis Slight Anisocytosis Slight Microcytosis Slight Sodium 135 L (137-145) mmol/L Potassium 4.3 (3.5-5.1) mmol/L Chloride 102 (98-107) mmol/L Carbon Dioxide 19 L (22-30) mmol/L Anion Gap 14 mmol/L BUN 21 H (7-17) mg/dL Creatinine 0.90 (0.52-1.04) mg/dL Est GFR (CKD-EPI)AfAm 89 (>60 ml/min/1.73 sqM) Est GFR (CKD-EPI)NonAf 77 (>60 ml/min/1.73 sqM) Glucose 153 H (74-99) mg/dL Lactic Ac Sepsis Rflx Plasma Lactic Acid Mehul 4.8 H* (0.7-2.0) mmol/L Calcium 8.4 (8.4-10.2) mg/dL Total Bilirubin 2.5 H (0.2-1.3) mg/dL AST 81 H (14-36) U/L ALT 50 H (4-34) U/L Alkaline Phosphatase 161 H (38-126) U/L Troponin I (0.000-0.034) ng/mL Total Protein 8.0 (6.3-8.2) g/dL Albumin 3.2 L (3.5-5.0) g/dL Lipase 337 H (23-300) U/L Urine Color Urine Appearance (Clear) Urine pH (5.0-8.0) Ur Specific [place] (1.001-1.035) Urine Protein (Negative) Urine Glucose (UA) (Negative) Urine Ketones (Negative) Urine Blood (Negative) Urine Nitrite (Negative) Urine Bilirubin (Negative) Urine Urobilinogen (<2.0) mg/dL Ur Leukocyte Esterase (Negative) 09/06/19 09/06/19 09/06/19 Range/Units 13:06 13:06 13:50 WBC (3.8-10.6) k/uL RBC (3.80-5.40) m/uL Hgb (11.4-16.0) gm/dL Hct (34.0-46.0) % MCV (80.0-100.0) fL MCH (25.0-35.0) pg MCHC (31.0-37.0) g/dL RDW (11.5-15.5) % Plt Count (150-450) k/uL Neutrophils % % Lymphocytes % % Monocytes % % Eosinophils % % Basophils % % Neutrophils # (1.3-7.7) k/uL Lymphocytes # (1.0-4.8) k/uL Monocytes # (0-1.0) k/uL Eosinophils # (0-0.7) k/uL Basophils # (0-0.2) k/uL Hypochromasia Poikilocytosis Anisocytosis Microcytosis Sodium (137-145) mmol/L Potassium (3.5-5.1) mmol/L Chloride (98-107) mmol/L Carbon Dioxide (22-30) mmol/L Anion Gap mmol/L BUN (7-17) mg/dL Creatinine (0.52-1.04) mg/dL Est GFR (CKD-EPI)AfAm (>60 ml/min/1.73 sqM) Est GFR (CKD-EPI)NonAf (>60 ml/min/1.73 sqM) Glucose (74-99) mg/dL Lactic Ac Sepsis Rflx Y Plasma Lactic Acid Mehul (0.7-2.0) mmol/L Calcium (8.4-10.2) mg/dL Total Bilirubin (0.2-1.3) mg/dL AST (14-36) U/L ALT (4-34) U/L Alkaline Phosphatase (38-126) U/L Troponin I <0.012 (0.000-0.034) ng/mL Total Protein (6.3-8.2) g/dL Albumin (3.5-5.0) g/dL Lipase (23-300) U/L Urine Color Yellow Urine Appearance Clear (Clear) Urine pH 6.0 (5.0-8.0) Ur Specific [place] >1.050 H (1.001-1.035) Urine Protein Trace H (Negative) Urine Glucose (UA) Negative (Negative) Urine Ketones 2+ H (Negative) Urine Blood Negative (Negative) Urine Nitrite Negative (Negative) Urine Bilirubin Negative (Negative) Urine Urobilinogen 3.0 (<2.0) mg/dL Ur Leukocyte Esterase Negative (Negative) - EKG Data EKG Comments: Ventricular rate 120, when necessary for 136, QRS 84, QT/QTC 364/514. EKG computer interpretation unusual P axis possible ectopic atrial tachycardia. No concern for acute ischemia at this time. (Jose A Aguilera) Disposition <Dubois,Yanick - Last Filed: 09/06/19 16:52> Is patient prescribed a controlled substance at d/c from ED?: No <Jose A Aguilera - Last Filed: 09/06/19 20:28> Clinical Impression: Abdominal pain, Abdominal ascites Disposition: ADMITTED IP TO THIS HOSP Condition: Serious
[2019-09-06 13:24] LABS: Anisocytosis Slight; Basophils % (A) 0 %; Eosinophils # (A) 0.1 k/uL (0-0.7); Eosinophils % (A) 1 %; HCT 38.2 % (34.0-46.0); Hypochromasia Marked; Lymphocytes % (A) 8 %; MCH 24.7 pg (25.0-35.0); MCHC 31.4 g/dL (31.0-37.0); MCV 78.6 fL (80.0-100.0); Mean Platelet Volume 7.9; Microcytosis Slight; Monocytes # (A) 0.5 k/uL (0-1.0); Monocytes % (A) 4 %; Neutrophils # (A) 10.3 k/uL (1.3-7.7); Neutrophils % (A) 85 %; Platelet Count 116 k/uL (150-450); Poikilocytosis Slight; RBC 4.87 m/uL (3.80-5.40); RDW 18.6 % (11.5-15.5); WBC 12.2 k/uL (3.8-10.6)
[2019-09-06] MEDS ORDERED: SODIUM CHLORIDE 0.9% 500 ML 250 ML IV ONE ×2 (13:27→14:29)
[2019-09-06 13:42] LABS: Albumin 3.2 g/dL (3.5-5.0); Calcium 8.4 mg/dL (8.4-10.2); Potassium 4.3 mmol/L (3.5-5.1); Total Bilirubin 2.5 mg/dL (0.2-1.3)
--- NOTE | 2019-09-06 15:20 | CT ---
EXAMINATION TYPE: CT abdomen pelvis w con DATE OF EXAM: 09/06/2019 COMPARISON: 09/13/2018 HISTORY: Abdominal distention x1 month CT DLP: 2414.4 mGycm Automated exposure control for dose reduction was used. CONTRAST: CT scan of the abdomen pelvis is performed with IV Contrast, patient injected with 100 mL of Isovue 3 00. FINDINGS- LUNG BASES- No significant abnormality is appreciated. LIVER/GB-lobulation of liver can be associated with cirrhosis. Correlate clinically.. PANCREAS- No gross abnormality is seen. SPLEEN-spleen is enlarged measuring 16 cm. ADRENALS- No gross abnormality is seen. KIDNEYS/BLADDER- no hydronephrosis nephrolithiasis or renal mass. BOWEL-bowel gas pattern nonspecific. Mild thickening of the right colon could be related to incomplet e distention correlate clinically. LYMPH NODES- No greater than 1cm abdominal or pelvic lymph nodes areappreciated. OSSEOUS STRUCTURES-multilevel degenerative disc disease. There is a chronic appearing severe incomple te compression fracture L1 and mild superior endplate compression fracture L4.. OTHER- there is diffuse ascites. Abnormal densities within the subcutaneous tissues to be associated with anasarca. Could not exclude omental caking. Soft tissue nodule seen in the gastrohepatic ligame nt. Image 26 may represent a small lymph node measuring a short axis of 8 mm. Abdominal varices noted . Uterus not seen with certainty. Correlate clinically. IMPRESSION- 1. Correlate for hepatic cirrhosis and splenomegaly. Diffuse ascites noted. 2. Compression severe fracture L1 is new from the exam of 2019. Mild superior endplate fracture of L4 also appears progressed from 2019. 3. Limited assessment of the colon due to lack significant contrast and incomplete distention correla te clinically. If there is concern for colitis correlate clinically
[2019-09-06] MEDS ORDERED: ONDANSETRON 4 MG/2 ML VIAL IVP STA (15:30)
[2019-09-06] MEDS ORDERED: NALOXONE 0.4 MG/ML 1 ML VIAL IV PRN (16:51)
[2019-09-06 17:01] LABS: Appearance,Urine Clear (Clear); Bilirubin,Urine Negative (Negative); Blood,Urine Negative (Negative); Color,Urine Yellow; Glucose,Urine (UA) Negative (Negative); Ketones,Urine 2+ (Negative); Leukocyte Esterase,Urine Negative (Negative); Nitrite,Urine Negative (Negative); Protein,Urine Trace (Negative)
[2019-09-06 17:09] LABS: Specific Gravity,Urine >1.050 (1.001-1.035)
--- NOTE | 2019-09-06 18:54 | XR ---
EXAMINATION TYPE: XR chest 2V DATE OF EXAM: 09/06/2019 COMPARISON: 09/17/2018 HISTORY: Chest pain TECHNIQUE: Frontal and lateral views of the chest are obtained. FINDINGS: Right upper lobe atelectasis and/or infiltrate noted. Correlate clinically. Progress studies are advi sed. No evidence for pneumothorax. No pleural effusion. The cardiac silhouette size is within normal limits. The osseous structures are grossly intact. IMPRESSION: 1. Right upper lobe atelectasis and/or infiltrate noted. Correlate clinically. Progress studies are advised.
[2019-09-06 20:11] LABS: Glucose,Whole Blood 127 mg/dL (75-99)
--- NOTE | 2019-09-06 21:25 | P.HPIM ---
History of Present Illness H&P Date: 09/06/19 The patient is a 49-year-old female with a PMH of cirrhosis secondary to COLE, hypertension, and hyperlipidemia presented to the ED with complaints of persistent mild abdominal pain and distention. Of note, the patient was admitted to the hospital from 08/22 to 08/24 for similar complaints, had undergone a paracentesis by IR with removal of 200 mL with radiologist unable to remove more. The patient's beta grant was discontinued due to relative hypotension and her diuretics were kept at the same dose and she was discharged home. She notes that following discharge, she has continued to have 3 out of 10 central abdominal pain, constant, somewhat worsened with food, nonradiating, without associated nausea or vomiting. The patient also endorsed early satiety and 2-3 watery bowel movements daily. She also noted mild persistent shortness of breath, unchanged from the previous weeks. She otherwise denied fever, chills, chest pain, sore throat, headache, or visual disturbances. She underwent an extensive evaluation in the emergency room with CT abdomen and pelvis showing cirrhosis and splenomegaly with diffuse ascites with severe compression fracture of L1. Chest x-ray revealed right upper lobe atelectasis. DrPool evaluation revealed a WBC count 12.2, hemoglobin 12.0, platelets 116, sodium 135, potassium 4.3, BUN 21, creatinine 0.90, lactic acid 4.8, total bilirubin 2.5, AST 81, ALT 50, alkaline phosphatase 161, troponin less than 0.012, and lipase 337. Review of Systems Pertinent positives and negatives as discussed in HPI, a complete review of sys tems was performed and all other systems are negative. Past Medical History Past Medical History: Diabetes Mellitus, Hyperlipidemia, Hypertension Additional Past Medical History / Comment(s): mph 1 week ago for ascites History of Any Multi-Drug Resistant Organisms: MRSA, VRE Date of last positivie culture/infection: 09/17/18 VRE 01/2010 MRSA MDRO Source:: VRE URINE/ MRSA ABDOMEN Past Surgical History: Section, Hysterectomy Additional Past Surgical History / Comment(s): ophrarectomy Past Anesthesia/Blood Transfusion Reactions: No Reported Reaction Past Psychological History: Bipolar, Depression Smoking Status: Never smoker Past Alcohol Use History: None Reported Past Drug Use History: None Reported - Past Family History Father Family Medical History: COPD, Hyperlipidemia, Hypertension, Renal Disease Mother Family Medical History: Hyperlipidemia, Hypertension Medications and Allergies Home Medications Medication Instructions Recorded Confirmed Type Sertraline [Zoloft] 200 mg PO HS 09/02/14 08/23/19 History Zolpidem [Ambien] 10 mg PO HS 09/02/14 08/23/19 History LORazepam [Ativan] 1 mg PO HS PRN 02/04/18 08/23/19 History ARIPiprazole [Abilify] 20 mg PO HS 09/13/18 08/23/19 History Ergocalciferol [Vitamin D2 50,000 units PO Q7D 08/23/19 08/23/19 History (DRISDOL)] Furosemide [Lasix] 40 mg PO BID 08/23/19 08/23/19 History Insulin Glargine,Hum.rec.anlog 10 units SQ HS 08/23/19 08/23/19 History [Lantus Solostar] Multivit with Calcium,Iron,Min 1 tab PO DAILY 08/23/19 08/23/19 History [Women's Multivitamin] Sennosides-Docusate Sodium 1 tab PO BID 08/23/19 08/23/19 History [Senokot-S] Spironolactone 50 mg PO BID 08/23/19 08/23/19 History glyBURIDE/METFORMIN HCL 1 tab PO AC-BID 08/23/19 08/23/19 History [Glucovance 5-500 mg] lamoTRIgine [LaMICtal] 25 mg PO BID 08/23/19 08/23/19 History traMADol HCl [Ultram] 50 mg PO BID PRN 08/23/19 08/23/19 History Omeprazole [PriLOSEC] 20 mg PO AC-BRKFST 30 Days #30 cap 08/25/19 Rx Allergies Allergy/AdvReac Type Severity Reaction Status Date / Time Penicillins Allergy Rash/Hives Verified 09/06/19 12:32 Sulfa (Sulfonamide Allergy Rash/Hives Verified 09/06/19 12:32 Antibiotics) erythromycin base AdvReac Abdominal Verified 09/06/19 12:32 Pain meperidine HCl [From Demerol] AdvReac Confusion Verified 09/06/19 12:32 Physical Exam Vitals: Vital Signs Temp Pulse Pulse Resp BP BP Pulse Ox 09/06/19 18:30 98.2 F 115 H 18 145/82 95 09/06/19 18:09 98.2 F 115 H 18 123/60 93 L 09/06/19 16:00 118 H 18 153/94 93 L 09/06/19 15:07 114 H 18 164/88 96 09/06/19 13:39 115 H 18 145/85 94 L 09/06/19 13:09 122 H 18 135/79 94 L 09/06/19 12:32 98.5 F 144 H 18 157/91 95 Intake and Output 09/06/19 09/06/19 09/06/19 06:59 14:59 22:59 Other: Weight 104.78 kg 104.78 kg General: non toxic, no distress, appears at stated age, obese Derm: no unusual rashes/lesions no unusual ecchymoses, warm, dry Head: atraumatic, normocephalic, symmetric Eyes: EOMI, no lid lag, anicteric sclera, pupils equal round reactive to light ENT: Nose and ears atraumatic, no thrush, no pharyngeal erythema Neck: No thyromegaly, no cervical lymphadenopathy, trachea midline, supple Mouth: no lip lesion, mucus membranes moist Cardiovascular: S1S2 reg, no murmur, positive posterior tibial pulse bilateral, no edema, capillary refill less than 2 seconds Lungs: CTA bilateral, no rhonchi, no rales , no accessory muscle use Abdominal: soft, minimal tenderness, unable to appreciate no guarding, splenomegaly, normal bowel sounds Ext: no gross muscle atrophy, muscle strength 4 out of 5 in all 4 extremities grossly, no contractures Neuro: CN II-XI grossly intact, light touch intact all 4 extremities, finger to nose within normal limits, no asterixis Psych: Alert, oriented, appropriate affect Results CBC & Chem 7: 09/06/19 13:06 09/06/19 13:06 Labs: Abnormal Lab Results - Last 24 Hours (Table) 09/06/19 09/06/19 09/06/19 Range/Units 13:06 13:06 13:06 WBC 12.2 H (3.8-10.6) k/uL MCV 78.6 L (80.0-100.0) fL MCH 24.7 L (25.0-35.0) pg RDW 18.6 H (11.5-15.5) % Plt Count 116 L (150-450) k/uL Neutrophils # 10.3 H (1.3-7.7) k/uL Sodium 135 L (137-145) mmol/L Carbon Dioxide 19 L (22-30) mmol/L BUN 21 H (7-17) mg/dL Glucose 153 H (74-99) mg/dL POC Glucose (mg/dL) (75-99) mg/dL Plasma Lactic Acid Mehul 4.8 H* (0.7-2.0) mmol/L Total Bilirubin 2.5 H (0.2-1.3) mg/dL AST 81 H (14-36) U/L ALT 50 H (4-34) U/L Alkaline Phosphatase 161 H (38-126) U/L Albumin 3.2 L (3.5-5.0) g/dL Lipase 337 H (23-300) U/L Ur Specific [place] (1.001-1.035) Urine Protein (Negative) Urine Ketones (Negative) 09/06/19 09/06/19 Range/Units 13:06 20:09 WBC (3.8-10.6) k/uL MCV (80.0-100.0) fL MCH (25.0-35.0) pg RDW (11.5-15.5) % Plt Count (150-450) k/uL Neutrophils # (1.3-7.7) k/uL Sodium (137-145) mmol/L Carbon Dioxide (22-30) mmol/L BUN (7-17) mg/dL Glucose (74-99) mg/dL POC Glucose (mg/dL) 127 H (75-99) mg/dL Plasma Lactic Acid Mehul (0.7-2.0) mmol/L Total Bilirubin (0.2-1.3) mg/dL AST (14-36) U/L ALT (4-34) U/L Alkaline Phosphatase (38-126) U/L Albumin (3.5-5.0) g/dL Lipase (23-300) U/L Ur Specific [place] >1.050 H (1.001-1.035) Urine Protein Trace H (Negative) Urine Ketones 2+ H (Negative) Assessment and Plan Plan: Abdominal pain and distention in setting of cirrhosis -GI consult and possible evaluation for repeat paracentesis -Patient will benefit from increased dose of diuretics -Low suspicion for spontaneous bacterial peritonitis at this time since no change in mild abdominal discomfort and minimal distention on examination -Continue with empiric ceftriaxone daily for now -Lipase elevated secondary to cirrhosis. No evidence of pancreatitis at this time Tachycardia -Patient's beta grant was discontinued -We'll resume the previous home dose Lactic acidosis -Resolved Thrombocytopenia, chronic -Likely due to cirrhosis -Monitor for now Leukocytosis -Continue with ceftriaxone empirically for now -No other signs of infection at this time Type II DM -Continue with home insulin regimen -Follow up A1c -Insulin sliding scale and blood glucose monitoring Hypertension, hyperlipidemia -Continue with home meds DVT prophylaxis -IPCDs The patient is admitted with an anticipated less than 2 midnight stay for evaluation of abdominal pain and distension CODE STATUS: Full Code Discussed with: Patient Anticipated discharge date: 1-[address]: Home A total of 40 minutes was spent on the care of this complex patient more than 50% of the time was spent in counseling and care coordination.
[2019-09-06] MEDS ORDERED: INSULIN DETEMIR (LEVEMIR) 100 UNIT/ML SYR SQ SCH (23:45)
[2019-09-06] MEDS: traMADol 50 MG TAB PO PRN (23:52)
[2019-09-06] MEDS: ZOLPIDEM 10 MG TAB PO SCH (23:52)
[2019-09-06] MEDS: FUROSEMIDE 40 MG TAB PO SCH (23:59)
[2019-09-07] MEDS ORDERED: HEPARIN SODIUM,PORCINE 5,000 UNIT/ML 1 ML VIAL SQ SCH
[2019-09-07] MEDS ORDERED: IBUPROFEN 200 MG TAB PO STA (01:50)
[2019-09-07] MEDS: METOPROLOL TARTRATE 25 MG TAB PO SCH ×3 (02:09→20:35)
[2019-09-07] MEDS ORDERED: INSULIN DETEMIR (LEVEMIR) 100 UNIT/ML SYR SQ SCH (04:39)
[2019-09-07 07:26] LABS: Anisocytosis Slight; HCT 31.5 % (34.0-46.0); HGB 10.2 gm/dL (11.4-16.0); Hypochromasia Moderate; MCH 25.1 pg (25.0-35.0); MCHC 32.3 g/dL (31.0-37.0); MCV 77.6 fL (80.0-100.0); Mean Platelet Volume 7.1; Microcytosis Slight; RBC 4.05 m/uL (3.80-5.40); RDW 18.7 % (11.5-15.5); WBC 6.1 k/uL (3.8-10.6)
[2019-09-07] MEDS ORDERED: PANTOPRAZOLE 40 MG TABLET PO SCH (07:30)
[2019-09-07 07:32] LABS: Glucose,Whole Blood 193 mg/dL (75-99)
[2019-09-07 07:59] LABS: ALT 45 U/L (4-34); AST 59 U/L (14-36); African American GFR (CKD) >90 (>60 ml/min/1.73 sqM); Albumin 2.6 g/dL (3.5-5.0); Alkaline Phosphatase 137 U/L (38-126); Anion Gap 7 mmol/L; Blood Urea Nitrogen 21 mg/dL (7-17); Calcium 7.9 mg/dL (8.4-10.2); Carbon Dioxide 26 mmol/L (22-30); Chloride 102 mmol/L (98-107); Glucose 135 mg/dL (74-99); Non-African American GFR(CKD) 87 (>60 ml/min/1.73 sqM); Potassium 3.7 mmol/L (3.5-5.1); Sodium 135 mmol/L (137-145); Total Bilirubin 1.9 mg/dL (0.2-1.3); Total Protein 6.9 g/dL (6.3-8.2)
[2019-09-07] MEDS: INSULIN ASPART (NovoLOG) 100 UNIT/ML VIAL SQ SCH ×3 (08:06→16:45)
[2019-09-07] MEDS: FUROSEMIDE 40 MG TAB PO SCH ×2 (08:07→20:35)
[2019-09-07] MEDS: SENNOSIDES-DOCUSATE SODIUM 1 EACH TAB PO SCH ×2 (08:07→20:36)
[2019-09-07] MEDS: SPIRONOLACTONE 25 MG TAB PO SCH ×2 (08:07→20:35)
[2019-09-07 08:26] LABS: Platelet Count 81 k/uL (150-450)
[2019-09-07] MEDS ORDERED: FUROSEMIDE 40 MG TAB PO SCH (09:00)
[2019-09-07 10:18] LABS: INR 1.3 (<1.2); Prothrombin Time 13.3 sec (9.0-12.0)
--- NOTE | 2019-09-07 11:13 | US ---
EXAMINATION TYPE: US abdomen limited DATE OF EXAM: 09/07/2019 COMPARISON: NONE CLINICAL HISTORY: assess for fluid pocket. All four quadrants scanned. Ascites visualized. IMPRESSION: As above
[2019-09-07 11:35] LABS: Glucose,Whole Blood 83 mg/dL (75-99)
--- NOTE | 2019-09-07 12:59 | P.PN ---
Subjective Progress Note Date: 09/07/19 (delayed charting seen at 10am) Principal diagnosis: abdominal pain Patient is a 49-year-old female with a past medical history of cirrhosis secondary to Becker, hypertension, and dyslipidemia who presented to the emergency department with complaints of persistent abdominal pain and distention. In the emergency room she was found to be tachycardic with a pulse of 144 and mildly hypertensive with blood pressure of 157/91. Initial laboratory analysis showed white blood cell count of 12.2, platelets 116 which are up from her baseline, sodium 135, bicarb 19, bilirubin 2.5, AST 81, and ALT 50. Lipase has been increasing. She underwent a CT abdomen and pelvis which showed cirrhosis, little mentally, and ascites. Also noted was severe L1 compression fracture. Due to her recurrent ascites she was admitted for further monitoring. Her Lasix and Aldactone were resumed. She was given a dose of Rocephin as prophylaxis for SBP. GI was consulted. Patient seen and examined at bedside. She described her abdominal pain as midline and an outward pressure. She denies any nausea or vomiting but did feel nauseous yesterday. She denies any issues with her acid reflux over the last 6 weeks and states that is about well-controlled and she has been off omeprazole a t baseline. When asked specifically about having any gross medications are running out of medications she states that she ran out of her diuretics proximately 4 weeks ago. She came into the hospital approximately 2 weeks ago with a were not refilled on discharge. She initially thought that she could make it to her follow-up appointment with Dr. Kaiser but was unable to do so. She reports that she saw him about a year ago for her first appointment in her fluid status was managed well on her diuretics until she ran out of 5. Objective - Vital Signs Vital signs: Vital Signs Temp 98.2 F 09/07/19 07:00 Pulse 106 H 09/07/19 08:00 Resp 14 09/07/19 08:00 BP 102/68 09/07/19 07:00 Pulse Ox 91 L 09/07/19 07:00 Intake & Output 09/06/19 09/07/19 09/07/19 18:59 06:59 18:59 Intake Total 700 Balance 700 Weight 104.78 kg Intake: Oral 700 Other: Voiding Method Toilet Toilet # Voids 2 - Exam General: ill appearing, no distress, appears at stated age Derm: warm, dry Head: atraumatic, normocephalic, symmetric Eyes: EOMI, no lid lag, anicteric sclera Mouth: no lip lesion, mucus membranes moist Cardiovascular: S1S2 reg, no murmur, positive posterior tibial pulse bilateral, Lungs: CTA bilateral, no rhonchi, no rales , no accessory muscle use Abdominal: + distended, + fluid wave, soft, nontender to palpation, no guarding, no appreciable organomegaly Ext: no gross muscle atrophy, 1+ edema, no contractures Neuro: CN II-XI grossly intact, no focal neuro deficits Psych: Alert, oriented, appropriate affect - Labs CBC & Chem 7: 09/07/19 06:15 09/07/19 06:15 Labs: Abnormal Lab Results - Last 24 Hours (Table) 09/06/19 09/06/19 09/06/19 Range/Units 13:06 13:06 13:06 WBC 12.2 H (3.8-10.6) k/uL Hgb (11.4-16.0) gm/dL Hct (34.0-46.0) % MCV 78.6 L (80.0-100.0) fL MCH 24.7 L (25.0-35.0) pg RDW 18.6 H (11.5-15.5) % Plt Count 116 L (150-450) k/uL Neutrophils # 10.3 H (1.3-7.7) k/uL PT (9.0-12.0) sec INR (<1.2) Sodium 135 L (137-145) mmol/L Carbon Dioxide 19 L (22-30) mmol/L BUN 21 H (7-17) mg/dL Glucose 153 H (74-99) mg/dL POC Glucose (mg/dL) (75-99) mg/dL Plasma Lactic Acid Mehul 4.8 H* (0.7-2.0) mmol/L Calcium (8.4-10.2) mg/dL Total Bilirubin 2.5 H (0.2-1.3) mg/dL AST 81 H (14-36) U/L ALT 50 H (4-34) U/L Alkaline Phosphatase 161 H (38-126) U/L Albumin 3.2 L (3.5-5.0) g/dL Lipase 337 H (23-300) U/L Ur Specific [place] (1.001-1.035) Urine Protein (Negative) Urine Ketones (Negative) 09/06/19 09/06/19 09/07/19 Range/Units 13:06 20:09 06:15 WBC (3.8-10.6) k/uL Hgb 10.2 L (11.4-16.0) gm/dL Hct 31.5 L (34.0-46.0) % MCV 77.6 L (80.0-100.0) fL MCH (25.0-35.0) pg RDW 18.7 H (11.5-15.5) % Plt Count 81 L (150-450) k/uL Neutrophils # (1.3-7.7) k/uL PT (9.0-12.0) sec INR (<1.2) Sodium (137-145) mmol/L Carbon Dioxide (22-30) mmol/L BUN (7-17) mg/dL Glucose (74-99) mg/dL POC Glucose (mg/dL) 127 H (75-99) mg/dL Plasma Lactic Acid Mehul (0.7-2.0) mmol/L Calcium (8.4-10.2) mg/dL Total Bilirubin (0.2-1.3) mg/dL AST (14-36) U/L ALT (4-34) U/L Alkaline Phosphatase (38-126) U/L Albumin (3.5-5.0) g/dL Lipase (23-300) U/L Ur Specific [place] >1.050 H (1.001-1.035) Urine Protein Trace H (Negative) Urine Ketones 2+ H (Negative) 09/07/19 09/07/19 09/07/19 Range/Units 06:15 07:31 09:23 WBC (3.8-10.6) k/uL Hgb (11.4-16.0) gm/dL Hct (34.0-46.0) % MCV (80.0-100.0) fL MCH (25.0-35.0) pg RDW (11.5-15.5) % Plt Count (150-450) k/uL Neutrophils # (1.3-7.7) k/uL PT 13.3 H (9.0-12.0) sec INR 1.3 H (<1.2) Sodium 135 L (137-145) mmol/L Carbon Dioxide (22-30) mmol/L BUN 21 H (7-17) mg/dL Glucose 135 H (74-99) mg/dL POC Glucose (mg/dL) 193 H (75-99) mg/dL Plasma Lactic Acid Mehul (0.7-2.0) mmol/L Calcium 7.9 L (8.4-10.2) mg/dL Total Bilirubin 1.9 H (0.2-1.3) mg/dL AST 59 H (14-36) U/L ALT 45 H (4-34) U/L Alkaline Phosphatase 137 H (38-126) U/L Albumin 2.6 L (3.5-5.0) g/dL Lipase 454 H (23-300) U/L Ur Specific [place] (1.001-1.035) Urine Protein (Negative) Urine Ketones (Negative) Assessment and Plan Assessment: 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 secondary to abdominal pain -CT abdomen and pelvis with ascites and L1 compression fracture -Continue with pain medications THrombocytopenia - chronic due to liver disease - follow CBC Diabetes mellitus type 2 -Hold metformin, glyburide -Sliding-scale insulin -Lantus has been converted to Levemir, will decrease her night dose by half secondary to nothing by mouth status for EGD in a.m. Sinus tachycardia - Metoprolol resumed - Follow vitals HTN, accelerated on arrival - metoprolol restarted - Follow BP L1 compression fracture, known to patient and not new -Continue with outpatient treatment with Ultram Leukocytosis, resolved lactic acidosis, resolved DVT prophylaxis: SCDs Discussed with: patient, nursing, Dr. Garrison Anticipated discharge: in AM after EGD Anticipated discharge place: home A total of 35 minutes was spent on the care of this complex patient more than 50% of the time was spent in counseling and care coordination.
[2019-09-07 14:55] LABS: Hemoglobin A1C 6.1 % (4.0-6.0)
[2019-09-07 16:19] LABS: Glucose,Whole Blood 157 mg/dL (75-99)
--- NOTE | 2019-09-07 18:24 | CONS ---
CONSULTATION DATE OF DICTATION: 09/07/2019 REASON FOR CONSULTATION: Abdominal pain. HISTORY OF PRESENT ILLNESS: The patient is a 49-year-old pleasant white female with history of non-alcoholic cirrhosis of the liver with portal hypertension and recurrent ascites, admitted to the hospital because of severe abdominal pain that started 2 days ago. The pain was mostly in the epigastric area and she had a couple of episodes of nausea, vomiting. She was just discharged from the hospital 3 weeks ago, at which time she was admitted with ascites. She underwent large-volume paracentesis; 6 liters of fluid was removed; and she was discharged home on Lasix 40 mg twice daily as well as Aldactone 50 mg twice daily. She says that she ran out of her prescriptions about 2 days ago and did not take the medications. She was scheduled to see Dr. Read on September 20. In the meantime, because of the abdominal pain, mostly in the epigastric area associated with nausea and vomiting, she was re-admitted to the hospital. She did have a CT of the abdomen and pelvis done in the emergency room yesterday evening that showed some ascites, cirrhosis of the liver with splenomegaly, compression fracture of the L1 vertebra. She reports no fever, chills, night sweats. No rectal bleeding or melena. PAST MEDICAL HISTORY: Her past medical history is significant for cirrhosis of the liver related to fatty liver disease, history of recurrent ascites, anxiety, diabetes mellitus, hypertension, hyperlipidemia and gastroesophageal reflux disease. MEDICATIONS: Medications at home: Prilosec, Ultram, Lamictal, glyburide, spironolactone, Senna, multivitamin, Lantus, Lasix, Drisdol, Abilify, Ativan, Ambien, Zoloft. ALLERGIES: PENICILLIN AND SULFA. SOCIAL HISTORY: No smoking. No alcohol use. FAMILY HISTORY: Father with COPD, hyperlipidemia, hypertension. Mother has hypertension and hyperlipidemia. PAST SURGICAL HISTORY: Hysterectomy, , oophorectomy. REVIEW OF SYSTEMS: CARDIOPULMONARY: No chest pain or shortness of breath. GENITOURINARY: No dysuria or hematuria. MUSCULOSKELETAL: Unremarkable. SKIN: Unremarkable. ENDOCRINE: Unremarkable. PSYCHIATRIC: History of anxiety, depression. ENT/VISION: Unremarkable. CONSTITUTIONAL: She gained 10 pounds in the last 2 weeks' duration. PHYSICAL EXAMINATION: Blood pressure is 102/68, pulse rate 106, temperature 98.2. HEENT examination unremarkable. Conjunctivae pink. Sclerae anicteric. Oral cavity no lesions. NECK: No JVD or lymph node enlargement. CHEST: Clear to auscultation. HEART: Regular rate and rhythm. ABDOMEN: Soft. There was mild diffuse tenderness noted in the epigastric area. I did not appreciate any shifting dullness. Abdomen was not distended. EXTREMITIES: No pedal edema. SKIN: No rashes. NEUROLOGIC: Alert and oriented x3. No focal deficits. LABS: Labs from today show WBC 6.1, hemoglobin 10.2, platelets 81,000. INR is 1.3. AST and ALT are 59 and 45, respectively. T-bilirubin 1.9, alkaline phosphatase 137. Lipase is 454. IMPRESSION: 1. Acute onset of severe epigastric pain associated with nausea, vomiting. Rule out peptic ulcer disease. Lipase is slightly elevated, but doubt pancreatitis. 2. History of non-alcoholic cirrhosis of the liver with portal hypertension and recurrent ascites. 3. Mild elevation of serum transaminases and bilirubin secondary to underlying chronic liver disease. 4. Mild coagulopathy secondary to chronic liver disease. 5. Anemia and thrombocytopenia. RECOMMENDATIONS: 1. Scheduled for EGD tomorrow. 2. Continue with Protonix 40 mg twice daily. 3. Agree with ultrasound of the abdomen and, if needed, large-volume paracentesis. 4. Continue with Lasix 40 mg twice daily and Aldactone 50 mg twice daily. 5. Low-salt diet. 6. Further recommendations will follow. Thank you for this consultation. MMODL / IJN: [id number] /
[2019-09-07 20:32] LABS: Glucose,Whole Blood 163 mg/dL (75-99)
[2019-09-07] MEDS: ZOLPIDEM 10 MG TAB PO SCH (20:35)
[2019-09-07] MEDS: INSULIN DETEMIR (LEVEMIR) 100 UNIT/ML SYR SQ SCH (20:36)
[2019-09-07] MEDS: traMADol 50 MG TAB PO PRN (20:40)
[2019-09-08] MEDS: LACTATED RINGERS 1,000 ML IV SCH ×2 (01:54→21:51)
[2019-09-08] MEDS ORDERED: IBUPROFEN 400 MG TAB PO STA (05:04)
[2019-09-08 07:31] LABS: Glucose,Whole Blood 77 mg/dL (75-99)
[2019-09-08] MEDS: INSULIN ASPART (NovoLOG) 100 UNIT/ML VIAL SQ SCH ×3 (07:38→18:44)
[2019-09-08] MEDS: METOPROLOL TARTRATE 25 MG TAB PO SCH ×2 (07:56→21:12)
[2019-09-08 09:07] LABS: Glucose,Whole Blood 77 mg/dL (75-99)
[2019-09-08 09:09] LABS: Anisocytosis Slight; HCT 31.2 % (34.0-46.0); HGB 10.1 gm/dL (11.4-16.0); Hypochromasia Moderate; MCH 25.3 pg (25.0-35.0); MCHC 32.5 g/dL (31.0-37.0); MCV 77.8 fL (80.0-100.0); Mean Platelet Volume 7.5; Microcytosis Slight; RBC 4.01 m/uL (3.80-5.40); RDW 18.6 % (11.5-15.5); WBC 3.7 k/uL (3.8-10.6)
[2019-09-08 09:11] LABS: Platelet Count 68 k/uL (150-450)
[2019-09-08 09:25] LABS: ALT 45 U/L (4-34); AST 61 U/L (14-36); African American GFR (CKD) >90 (>60 ml/min/1.73 sqM); Albumin 2.6 g/dL (3.5-5.0); Alkaline Phosphatase 134 U/L (38-126); Anion Gap 5 mmol/L; Blood Urea Nitrogen 14 mg/dL (7-17); Calcium 7.5 mg/dL (8.4-10.2); Carbon Dioxide 31 mmol/L (22-30); Chloride 100 mmol/L (98-107); Glucose 74 mg/dL (74-99); Non-African American GFR(CKD) >90 (>60 ml/min/1.73 sqM); Potassium 3.1 mmol/L (3.5-5.1); Sodium 136 mmol/L (137-145); Total Bilirubin 1.7 mg/dL (0.2-1.3); Total Protein 6.7 g/dL (6.3-8.2)
[2019-09-08] MEDS ORDERED: LORazepam 2 MG/ML INJ IV PRN (09:40)
[2019-09-08] MEDS: FUROSEMIDE 40 MG TAB PO SCH ×2 (10:22→21:12)
[2019-09-08] MEDS: SPIRONOLACTONE 25 MG TAB PO SCH ×2 (10:22→21:11)
[2019-09-08] MEDS: SENNOSIDES-DOCUSATE SODIUM 1 EACH TAB PO SCH (10:22)
[2019-09-08] MEDS ORDERED: PROPOFOL 10 MG/ML 20 ML VIAL IV ONE (10:27)
[2019-09-08] MEDS ORDERED: LIDOCAINE 1% INJ 10MG/ML (20 ML MDV) ONE (10:27)
[2019-09-08] MEDS ORDERED: LACTATED RINGERS 1,000 ML IV ONE (10:33)
--- NOTE | 2019-09-08 10:57 | P.PCN ---
Date of Procedure: 09/08/19 Description of Procedure: BRIEF HISTORY: 49-year-old female with a known history of decompensated cirrhosis of the liver with ascites presented to the hospital with complaints of acute onset severe epigastric pain associated with nausea and vomiting. Lipase is slightly elevated but pancreatitis unlikely. EGD ordered to rule out peptic ulcer disease. PROCEDURE PERFORMED: Esophagogastroduodenoscopy with biopsy. PREOPERATIVE DIAGNOSIS: Epigastric abdominal pain, nausea and vomiting. ESTIMATED BLOOD LOSS: Minimal. IV sedation per anesthesia. PROCEDURE: After informed consent was obtained, the patient was brought into the endoscopy unit. IV sedation was administered by Anesthesia under continuous monitoring. Initially the Olympus GIF-190 video endoscope was inserted into the mouth. Esophagus intubated without any difficulty. It was gradually advanced into the stomach and duodenum and carefully examined. The bulb and the second part of the duodenum appeared normal, except for some mild scattered erythema suggestive of mild duodenitis with biopsies taken. The scope at this time was withdrawn to the stomach, adequately insufflated with air, and upon careful examination, mucosa of the antrum, body, cardia and the fundus appeared normal, except for some mild punctate erythema seen throughout the stomach suggestive of mild portal hypertensive gastropathy with biopsies of antrum and body taken. The scope was then withdrawn into the esophagus. The GE junction was located at 36 cm from the incisors. The esophagus appeared normal. There were no erosions or ulcerations or varices seen and the patient tolerated the procedure well. IMPRESSION: 1. Mild portal hypertensive gastropathy with biopsies of the antrum body taken . 2. Mild duodenitis, biopsied. 3. No peptic ulcer disease, esophageal varices or other pathology noted. RECOMMENDATIONS: The findings of this examination were discussed with the patient.. Okay to resume sodium restricted diet. Await pathology from biopsies. Patient will be initiated on Protonix 40 mg twice daily. Continue other medical regimen.
[2019-09-08] MEDS: PANTOPRAZOLE 40 MG TABLET PO SCH ×2 (11:48→21:28)
[2019-09-08 12:03] LABS: Glucose,Whole Blood 121 mg/dL (75-99)
[2019-09-08] MEDS ORDERED: POTASSIUM CHLORIDE ER 20 MEQ TAB.ER PO STA (14:23)
--- NOTE | 2019-09-08 15:09 | P.PN ---
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 In the emergency room she was found to be tachycardic with a pulse of 144 and mildly hypertensive with blood pressure of 157/91. Initial laboratory analysis showed white blood cell count of 12.2, platelets 116 which are up from her baseline, sodium 135, bicarb 19, bilirubin 2.5, AST 81, and ALT 50. Lipase has been increasing. She underwent a CT abdomen and pelvis which showed cirrhosis, little mentally, and ascites. Also noted was severe L1 compression fracture. Due to her recurrent ascites she was admitted for further monitoring. Her Lasix and Aldactone were resumed. She was given a dose of Rocephin as prophylaxis for SBP. GI was consulted. she was sent down for paracentesis on 09/06 however this was not performed she had only a small amount of ascites. She was seen by gastroenterology who recommended an EGD. This was completed on 09/07 and showed mild portal hypertensive gastropathy and mild duodenitis. Of note she had run out of her Lasix and Aldactone prior to admission. Patient seen and examined at bedside. she continues to have. Periumbilical pain that she states radiates to both sides, she continues to have some nausea, no chest pain or shortness of breath. She was frustrated she thought she was having a colonoscopy along with her EGD. She continues to have diarrhea which per that patient has been going on for quite some time. This was her first mention of it to me. Objective - Vital Signs Vital signs: Vital Signs Temp 98.0 F 09/08/19 07:00 Pulse 85 09/08/19 07:00 Resp 18 09/08/19 07:00 BP 116/73 09/08/19 07:00 Pulse Ox 91 L 09/08/19 07:00 Intake & Output 09/07/19 09/08/19 09/08/19 18:59 06:59 18:59 Intake Total 740 600 100 Balance 740 600 100 Intake: IV 100 Intake, IV Titration 50 Amount cefTRIAXone 1 gm In 50 Sodium Chloride 0.9% 50 ml @ 100 mls/hr IVPB Q24HR WOO Rx#:[id number] Oral 690 600 Other: Voiding Method Toilet # Voids 2 2 - Exam General: non toxic, no distress, appears at stated age Derm: warm, dry Head: atraumatic, normocephalic, symmetric Eyes: EOMI, no lid lag, anicteric sclera Mouth: no lip lesion, mucus membranes moist Cardiovascular: S1S2 reg, no murmur, positive posterior tibial pulse bilateral, Lungs: CTA bilateral, no rhonchi, no rales , no accessory muscle use Abdominal: + distended, no fluid wave, soft, +tender to palpation periumbilical , no guarding, no appreciable organomegaly Ext: no gross muscle atrophy, no edema, no contractures Neuro: CN II-XI grossly intact, no focal neuro deficits Psych: Alert, oriented, appropriate affect - Labs CBC & Chem 7: 09/08/19 08:41 09/08/19 08:41 Labs: Abnormal Lab Results - Last 24 Hours (Table) 09/07/19 09/07/19 09/07/19 Range/Units 06:15 16:17 20:31 WBC (3.8-10.6) k/uL Hgb (11.4-16.0) gm/dL Hct (34.0-46.0) % MCV (80.0-100.0) fL RDW (11.5-15.5) % Plt Count (150-450) k/uL Sodium (137-145) mmol/L Potassium (3.5-5.1) mmol/L Carbon Dioxide (22-30) mmol/L POC Glucose (mg/dL) 157 H 163 H (75-99) mg/dL Hemoglobin A1c 6.1 H (4.0-6.0) % Calcium (8.4-10.2) mg/dL Total Bilirubin (0.2-1.3) mg/dL AST (14-36) U/L ALT (4-34) U/L Alkaline Phosphatase (38-126) U/L Albumin (3.5-5.0) g/dL 09/08/19 09/08/19 09/08/19 Range/Units 08:41 08:41 12:01 WBC 3.7 L (3.8-10.6) k/uL Hgb 10.1 L (11.4-16.0) gm/dL Hct 31.2 L (34.0-46.0) % MCV 77.8 L (80.0-100.0) fL RDW 18.6 H (11.5-15.5) % Plt Count 68 L (150-450) k/uL Sodium 136 L (137-145) mmol/L Potassium 3.1 L (3.5-5.1) mmol/L Carbon Dioxide 31 H (22-30) mmol/L POC Glucose (mg/dL) 121 H (75-99) mg/dL Hemoglobin A1c (4.0-6.0) % Calcium 7.5 L (8.4-10.2) mg/dL Total Bilirubin 1.7 H (0.2-1.3) mg/dL AST 61 H (14-36) U/L ALT 45 H (4-34) U/L Alkaline Phosphatase 134 H (38-126) U/L Albumin 2.6 L (3.5-5.0) g/dL Microbiology - Last 24 Hours (Table) 09/06/19 15:22 Blood Culture - Preliminary Blood No Growth after 24 hours Assessment and Plan Assessment: 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 - no para as not enough fluid - Lasix and aldactone resumed and RX sent - Fluid restriction - Low sodium diet - Outpatient follow-up with GI - off rocephin Abdominal pain possible due to portal gastritis on EGD -PPI BID - GI recs -CT abdomen and pelvis with ascites and L1 compression fracture -Continue with pain medications Diarrhea - undetermined cause - continue off metformin - stop senna - c diff Thrombocytopenia - chronic due to liver disease - follow CBC Diabetes mellitus type 2 -Hold metformin, glyburide -Sliding-scale insulin -Lantus has been converted to Levemir, will keep decreased with AM blood sugar less than 100 HTN, accelerated on arrival - metoprolol restarted - Follow BP L1 compression fracture, known to patient and not new -Continue with outpatient treatment with Ultram Leukocytosis, resolved lactic acidosis, resolved Sinus tachycardia, resolved DVT prophylaxis: SCDs Discussed with: patient, nursing Anticipated discharge: in AM Anticipated discharge place: home A total of 35 minutes was spent on the care of this complex patient more than 50% of the time was spent in counseling and care coordination.
[2019-09-08 17:06] LABS: Glucose,Whole Blood 131 mg/dL (75-99)
[2019-09-08 20:23] LABS: Glucose,Whole Blood 132 mg/dL (75-99)
[2019-09-08] MEDS ORDERED: SERTRALINE 100 MG TAB PO SCH (21:00)
[2019-09-08] MEDS: traMADol 50 MG TAB PO PRN (21:11)
[2019-09-08] MEDS: lamoTRIgine 25 MG TAB PO SCH (21:12)
[2019-09-08] MEDS: ZOLPIDEM 10 MG TAB PO SCH (21:12)
[2019-09-08] MEDS: INSULIN DETEMIR (LEVEMIR) 100 UNIT/ML SYR SQ SCH (21:28)
[2019-09-09 07:33] LABS: Glucose,Whole Blood 122 mg/dL (75-99)
[2019-09-09] MEDS: INSULIN ASPART (NovoLOG) 100 UNIT/ML VIAL SQ SCH ×2 (07:36→12:01)
[2019-09-09 07:38] VITALS: BP 109/68; PULSE 84; RESP 18; TEMP 98.4
[2019-09-09] MEDS: SPIRONOLACTONE 25 MG TAB PO SCH (08:34)
[2019-09-09] MEDS: PANTOPRAZOLE 40 MG TABLET PO SCH (08:34)
[2019-09-09] MEDS: METOPROLOL TARTRATE 25 MG TAB PO SCH (08:34)
[2019-09-09] MEDS: FUROSEMIDE 40 MG TAB PO SCH (08:34)
[2019-09-09] MEDS: lamoTRIgine 25 MG TAB PO SCH (08:34)
[2019-09-09] MEDS ORDERED: DICYCLOMINE 20 MG TAB PO PRN (09:50)
[2019-09-09] MEDS ORDERED: Potassium Replacement Protocol 1 EACH MISC MISCELLANE PRN (09:56)
[2019-09-09 10:22] LABS: Anisocytosis Slight; Basophils % (A) 0 %; Eosinophils # (A) 0.1 k/uL (0-0.7); Eosinophils % (A) 2 %; HCT 29.5 % (34.0-46.0); HGB 9.3 gm/dL (11.4-16.0); Hypochromasia Slight; Lymphocytes # (A) 0.7 k/uL (1.0-4.8); Lymphocytes % (A) 22 %; MCH 24.5 pg (25.0-35.0); MCHC 31.5 g/dL (31.0-37.0); MCV 77.6 fL (80.0-100.0); Mean Platelet Volume 7.8; Microcytosis Slight; Monocytes # (A) 0.2 k/uL (0-1.0); Monocytes % (A) 7 %; Neutrophils % (A) 66 %; RDW 18.8 % (11.5-15.5); WBC 3.1 k/uL (3.8-10.6)
[2019-09-09 10:27] LABS: Platelet Count 60 k/uL (150-450)
[2019-09-09 10:33] LABS: Potassium 3.4 mmol/L (3.5-5.1)
[2019-09-09 10:34] LABS: African American GFR (CKD) >90 (>60 ml/min/1.73 sqM); Anion Gap 3 mmol/L; Blood Urea Nitrogen 12 mg/dL (7-17); Calcium 7.4 mg/dL (8.4-10.2); Carbon Dioxide 32 mmol/L (22-30); Chloride 99 mmol/L (98-107); Glucose 159 mg/dL (74-99); Non-African American GFR(CKD) >90 (>60 ml/min/1.73 sqM); Sodium 134 mmol/L (137-145)
[2019-09-09 12:01] LABS: Glucose,Whole Blood 156 mg/dL (75-99)
--- NOTE | 2019-09-09 13:12 | P.DS ---
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 In the emergency room she was found to be tachycardic with a pulse of 144 and mildly hypertensive with blood pressure of 157/91. Initial laboratory analysis showed white blood cell count of 12.2, platelets 116 which are up from her baseline, sodium 135, bicarb 19, bilirubin 2.5, AST 81, and ALT 50. Lipase has been increasing. She underwent a CT abdomen and pelvis which showed cirrhosis, little mentally, and ascites. Also noted was severe L1 compression fracture. Due to her recurrent ascites she was admitted for further monitoring. Her Lasix and Aldactone were resumed. She was given a dose of Rocephin as prophylaxis for SBP. GI was consulted. she was sent down for paracentesis on 09/06 however this was not performed she had only a small amount of ascites. She was seen by gastroenterology who recommended an EGD. This was completed on 09/07 and showed mild portal hypertensive gastropathy and mild duodenitis. Of note she had run out of her Lasix and Aldactone prior to admission. Patient was seen and examined. Patient continues to report epigastric discomfort on the right and left side. No bowel movement today. She denies any chest pain, shortness of breath or palpitations. No nausea or vomiting. No fever or chills. General: [non toxic], [no distress], [appears at stated age] Derm: [warm], [dry] Head: [atraumatic], [normocephalic], [symmetric] Eyes: [EOMI], [no lid lag], [anicteric sclera] Mouth: [no lip lesion], [mucus membranes moist] Cardiovascular: [S1S2 reg], [no murmur], [positive posterior tibial pulse bilateral], Lungs: [CTA bilateral], [no rhonchi, no rales] , [no accessory muscle use] Abdominal: [soft, distended], [mild tenderness to palpation in the periumbilical area without rebound], [no guarding], [no appreciable organomegaly] Ext: [no gross muscle atrophy], [no edema], [no contractures] Neuro: [no focal neuro deficits] Psych: [Alert], [oriented], [appropriate affect] 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 - no para as not enough fluid - Lasix and aldactone resumed and RX sent - Fluid restriction - Low sodium diet - Outpatient follow-up with GI - off rocephin Abdominal pain possible due to portal gastritis on EGD -PPI BID - GI recs -CT abdomen and pelvis with ascites and L1 compression fracture -Continue with pain medications Diarrhea - Bentyl added by GI - continue off metformin - stop senna - c diff Thrombocytopenia - chronic due to liver disease - follow CBC Diabetes mellitus type 2 -Hold metformin, glyburide -Sliding-scale insulin -Lantus has been converted to Levemir, will keep decreased with AM blood sugar less than 100 HTN, accelerated on arrival - metoprolol restarted - Follow BP L1 compression fracture, known to patient and not new -Continue with outpatient treatment with Ultram Leukocytosis, resolved lactic acidosis, resolved Sinus tachycardia, resolved [Medications to be delivered to bedside prior to discharge. Discussed with nursing. Plans on DC home today. Cleared by GI. This complex discharge took about 35 minutes to complete.] Pertinent Studies: CT abdomen and pelvis, chest x-ray, abdominal ultrasound Procedures: EGD Patient Condition at Discharge: Stable Plan - Discharge Summary Discharge Rx Participant: No New Discharge Prescriptions: New Dicyclomine [Bentyl] 20 mg PO QID PRN #30 tab PRN Reason: Dyspepsia Metoprolol Tartrate [Lopressor] 25 mg PO BID #60 tab Pantoprazole [Protonix] 40 mg PO AC-BID #60 tablet. Continue Zolpidem [Ambien] 10 mg PO HS Sertraline [Zoloft] 200 mg PO HS LORazepam [Ativan] 1 mg PO HS PRN PRN Reason: Anxiety ARIPiprazole [Abilify] 20 mg PO HS Insulin Glargine,Hum.rec.anlog [Lantus Solostar] 10 units SQ HS Ergocalciferol [Vitamin D2 (DRISDOL)] 50,000 units PO Q7D traMADol HCl [Ultram] 50 mg PO BID PRN PRN Reason: Pain glyBURIDE/METFORMIN HCL [Glucovance 5-500 mg] 1 tab PO AC-BID lamoTRIgine [LaMICtal] 25 mg PO BID Multivit with Calcium,Iron,Min [Women's Multivitamin] 1 tab PO DAILY Furosemide [Lasix] 40 mg PO BID #60 tab Spironolactone 50 mg PO BID #60 tab Changed Sennosides-Docusate Sodium [Senokot-S] 1 tab PO BID PRN #0 PRN Reason: Constipation Discontinued Omeprazole [PriLOSEC] 20 mg PO AC-BRKFST 30 Days #30 cap Discharge Medication List Sertraline [Zoloft] 200 mg PO HS 09/02/14 [History] Zolpidem [Ambien] 10 mg PO HS 09/02/14 [History] LORazepam [Ativan] 1 mg PO HS PRN 02/04/18 [History] ARIPiprazole [Abilify] 20 mg PO HS 09/13/18 [History] Ergocalciferol [Vitamin D2 (DRISDOL)] 50,000 units PO Q7D 08/23/19 [History] Insulin Glargine,Hum.rec.anlog [Lantus Solostar] 10 units SQ HS 08/23/19 [History] Multivit with Calcium,Iron,Min [Women's Multivitamin] 1 tab PO DAILY 08/23/19 [History] glyBURIDE/METFORMIN HCL [Glucovance 5-500 mg] 1 tab PO AC-BID 08/23/19 [History] lamoTRIgine [LaMICtal] 25 mg PO BID 08/23/19 [History] traMADol HCl [Ultram] 50 mg PO BID PRN 08/23/19 [History] Furosemide [Lasix] 40 mg PO BID #60 tab 09/07/19 [Rx] Spironolactone 50 mg PO BID #60 tab 09/07/19 [Rx] Dicyclomine [Bentyl] 20 mg PO QID PRN #30 tab 09/09/19 [Rx] Metoprolol Tartrate [Lopressor] 25 mg PO BID #60 tab 09/09/19 [Rx] Pantoprazole [Protonix] 40 mg PO AC-BID #60 tablet. 09/09/19 [Rx] Sennosides-Docusate Sodium [Senokot-S] 1 tab PO BID PRN #0 09/09/19 [Rx] Follow up Appointment(s)/Referral(s): Woodrow Richards [Primary Care Provider] - 1-2 days Nate Read MD [STAFF PHYSICIAN] - 1 Week Activity/Diet/Wound Care/Special Instructions: Diet: Low-salt Follow-up with PCP within 3 days of discharge. Follow-up with GI within 1 week of discharge. Take all medications as advised. Discharge Disposition: HOME SELF-CARE
[2019-09-09 17:06] LABS: Gliadin AB IgA, Deaminated NEGATIVE (NEGATIVE); Gliadin AB IgA, Unit 1.7 U/mL; Gliadin AB IgG, Deaminated NEGATIVE (NEGATIVE)
[2019-09-10] MEDS ORDERED: FUROSEMIDE 40 MG TAB PO SCH (09:00)
--- NOTE | 2019-09-10 18:54 | P.PN ---
Subjective Progress Note Date: 09/09/19 Principal diagnosis: Decompensated cirrhosis with ascites, abdominal pain Patient is seen lying in bed tolerating diet. No nausea or vomiting. No abdominal pain. Objective - Vital Signs Vital signs: Vital Signs Temp 98.4 F 09/09/19 07:00 Pulse 84 09/09/19 07:00 Resp 18 09/09/19 07:00 BP 109/68 09/09/19 07:00 Pulse Ox 90 L 09/09/19 07:00 Intake & Output 09/08/19 09/09/19 09/09/19 18:59 06:59 18:59 Intake Total 100 540 Balance 100 540 Intake: IV 100 Oral 540 Other: Voiding Method Toilet # Voids 3 3 - Exam On physical examination, patient appears comfortable in no apparent distress. HEAD: Normocephalic, atraumatic. EYES: No scleral icterus. No conjunctival injection. MOUTH: No lesions, tongue midline. NECK: Trachea midline, no gross abnormalities. ABDOMEN: Soft, obese. Bowel sounds are positive. No organomegaly. No guarding or rigidity. EXTREMITIES: No pedal edema. SKIN: No rashes, no jaundice. NEUROLOGIC: Alert and oriented x3. No focal deficits. - Labs CBC & Chem 7: 09/09/19 10:05 09/09/19 10:05 Labs: Abnormal Lab Results - Last 24 Hours (Table) 09/08/19 09/08/19 09/08/19 Range/Units 12:01 17:04 20:22 POC Glucose (mg/dL) 121 H 131 H 132 H (75-99) mg/dL 09/09/19 Range/Units 07:30 POC Glucose (mg/dL) 122 H (75-99) mg/dL Microbiology - Last 24 Hours (Table) 09/06/19 15:22 Blood Culture - Preliminary Blood No Growth after 48 hours Assessment and Plan (1) Cirrhosis Status: Acute Code(s): K74.60 - UNSPECIFIED CIRRHOSIS OF LIVER SNOMED Code(s): 52678614 (2) Abdominal pain Status: Acute Code(s): R10.9 - UNSPECIFIED ABDOMINAL PAIN SNOMED Code(s): 38240106 (3) Ascites Status: Acute Code(s): R18.8 - OTHER ASCITES SNOMED Code(s): 426456735 (4) Portal hypertension Status: Acute Code(s): K76.6 - PORTAL HYPERTENSION SNOMED Code(s): 15036352 Plan: Supportive care Okay for diet Continue diuretic therapy Continue Protonix therapy Follow up with GI after discharge Thank you for allowing us to participate in the care of the patient
--- NOTE | 2019-09-12 08:21 | CDI ---
Documentation Clarification Form Date: 09/12/19 From: Minnie Arzate CCS Phone: If you have a question about this query, please contact Misty Restrepo, Tile Setter Apprentice at [phone] between 8am and 5pm. Admit Date: 09/08/19 Discharge Date:09/09/19 Patient Name: Nora Heller Visit Number: [id number] ATTENTION: The Clinical Documentation Specialists (CDI) and [facility] Coding Staff appreciate your assistance in clarifying documentation. Please respond to the clarification below the line at the bottom and electronically sign. The CDI & [facility] Coding staff will review the response and follow-up if needed. Please note: Queries are made part of the Legal Health Record. If you have any questions, please contact the author of this message via ITS. Dear Dr. Hicks, Anemia is documented in the Consult dated 09/06. History/Risk Factors: COLE, Cirrhosis, Duodenitis, Portal gastritis, DM, HTN, Chronic Thrombocytopenia Clinical indicators: Hct 29.5, Hgb 9.3 Hemoglobin: 10.2, 10.1, 9.3 Hematocrit: 31.5, 31.2, 29.5 Treatment: Monitor labs, Multivit w/ Calcium, Iron, Minerals In order to capture the severity of condition, please clarify the type of anemia and etiology if known:. Anemia in chronic disease Acute blood loss anemia Chronic blood loss anemia Iron deficiency anemia Nutritional anemia Unable to determine Other, please specify no work up was done during this admission, review from previous admissions seem to show iron deficiency MTDD
== END 2019-09-09 14:45 | disposition home or self-care (01) | DRG 433 ==
LOC: EC 12:29 → 4SSUR 16:51 → INTOOBSV 16:51 → 4SSUR 19:17 → OBSVTOIN 09-08 15:22
PROVIDERS: ADMIT Family Medicine; ATTEND Family Medicine
PROC: 0DB78ZX Excision of Stomach, Pylorus, Via Natural or Artificial Opening Endoscopic, Diagnostic (ICD-10-PCS; 2019-09-08)
PROC: 0DB98ZX Excision of Duodenum, Via Natural or Artificial Opening Endoscopic, Diagnostic (ICD-10-PCS; principal; 2019-09-08 10:00)
DX: K74.69 Other cirrhosis of liver (principal); R18.8 Other ascites; E87.2 Acidosis; K76.6 Portal hypertension; D68.4 Acquired coagulation factor deficiency; M48.56XA Collapsed vertebra, not elsewhere classified, lumbar region, initial encounter for fracture; J98.11 Atelectasis; K75.81 Nonalcoholic steatohepatitis (NASH); D69.59 Other secondary thrombocytopenia; Z11.59 Encounter for screening for other viral diseases; E11.9 Type 2 diabetes mellitus without complications; F31.9 Bipolar disorder, unspecified; Z79.4 Long term (current) use of insulin; R16.1 Splenomegaly, not elsewhere classified; I10 Essential (primary) hypertension; E78.5 Hyperlipidemia, unspecified; R00.0 Tachycardia, unspecified; K21.9 Gastro-esophageal reflux disease without esophagitis; F41.9 Anxiety disorder, unspecified; K29.80 Duodenitis without bleeding; K31.89 Other diseases of stomach and duodenum; D72.829 Elevated white blood cell count, unspecified; R19.7 Diarrhea, unspecified; D50.9 Iron deficiency anemia, unspecified; K29.60 Other gastritis without bleeding; Z79.899 Other long term (current) drug therapy; Z86.14 Personal history of Methicillin resistant Staphylococcus aureus infection; Z90.710 Acquired absence of both cervix and uterus; Z88.5 Allergy status to narcotic agent; Z88.0 Allergy status to penicillin; Z88.2 Allergy status to sulfonamides; Z82.5 Family history of asthma and other chronic lower respiratory diseases; Z82.49 Family history of ischemic heart disease and other diseases of the circulatory system; Z84.1 Family history of disorders of kidney and ureter; Z83.438 Family history of other disorder of lipoprotein metabolism and other lipidemia
CPT/HCPCS: 36415; 43239; 71046; 74177; 76705; 80048; 80053; 81003; 83036; 83516; 83605; 83690; 84484; 85025; 85027; 85610; 87040; 87635; 88305; 93005; 96361; 96365; 96375; 99285

== ENCOUNTER → 2019-09-21 | Outpatient (CLI) | payer OTHER, MEDICARE ==
[2019-09-21 14:23] LABS: Anisocytosis Slight; Basophils % (A) 0 %; Eosinophils # (A) 0.1 k/uL (0-0.7); Eosinophils % (A) 2 %; HCT 34.9 % (34.0-46.0); HGB 10.6 gm/dL (11.4-16.0); Hypochromasia Marked; Lymphocytes # (A) 0.6 k/uL (1.0-4.8); Lymphocytes % (A) 18 %; MCH 24.3 pg (25.0-35.0); MCHC 30.5 g/dL (31.0-37.0); MCV 79.9 fL (80.0-100.0); Mean Platelet Volume 7.8; Microcytosis Slight; Monocytes # (A) 0.2 k/uL (0-1.0); Monocytes % (A) 5 %; Neutrophils # (A) 2.4 k/uL (1.3-7.7); Neutrophils % (A) 73 %; Poikilocytosis Slight; RBC 4.37 m/uL (3.80-5.40); WBC 3.3 k/uL (3.8-10.6)
[2019-09-21 14:26] LABS: INR 1.3 (<1.2); Prothrombin Time 12.9 sec (9.0-12.0)
[2019-09-21 14:31] LABS: Platelet Count 85 k/uL (150-450)
[2019-09-21 23:13] LABS: African American GFR (CKD) 77.7 (60.0-200.0); Albumin 2.9 g/dL (3.80-4.90); Albumin/Globulin Ratio 0.67 (1.60-3.17); Calcium 8.1 mg/dL (8.7-10.3); Globulin 4.3 g/dL (1.6-3.3); Potassium 3.4 mmol/L (3.5-5.5); Total Bilirubin 2.1 mg/dL (0.3-1.2); Total Protein 7.2 g/dL (6.2-8.2)
== END | disposition home or self-care (01) ==
LOC: LABWHC1 12:57
PROVIDERS: ATTEND Internal Medicine
DX: K74.69 Other cirrhosis of liver (principal); R18.8 Other ascites
CPT/HCPCS: 36415; 80053; 85025; 85610

== ENCOUNTER 2019-10-31 21:52 | Emergency (ER) | payer OTHER, MEDICARE ==
[2019-10-31] MEDS ORDERED: ONDANSETRON 4 MG/2 ML VIAL IVP STA (22:24)
[2019-10-31] MEDS ORDERED: ACETAMINOPHEN TAB 325 MG TAB PO STA (22:25)
[2019-10-31 22:39] LABS: Anisocytosis Slight; Basophils % (A) 0 %; Eosinophils # (A) 0.1 k/uL (0-0.7); Eosinophils % (A) 1 %; HCT 31.5 % (34.0-46.0); HGB 9.9 gm/dL (11.4-16.0); Hypochromasia Moderate; Lymphocytes # (A) 0.6 k/uL (1.0-4.8); Lymphocytes % (A) 18 %; MCH 23.8 pg (25.0-35.0); MCHC 31.3 g/dL (31.0-37.0); Mean Platelet Volume 7.8; Microcytosis Moderate; Monocytes # (A) 0.2 k/uL (0-1.0); Monocytes % (A) 7 %; Neutrophils # (A) 2.4 k/uL (1.3-7.7); Neutrophils % (A) 71 %; RBC 4.15 m/uL (3.80-5.40); RDW 18.9 % (11.5-15.5); WBC 3.4 k/uL (3.8-10.6)
[2019-10-31 22:48] LABS: ALT 43 U/L (4-34); AST 150 U/L (14-36); African American GFR (CKD) >90 (>60 ml/min/1.73 sqM); Albumin 2.8 g/dL (3.5-5.0); Alkaline Phosphatase 156 U/L (38-126); Amylase 38 U/L (30-110); Anion Gap 8 mmol/L; Blood Urea Nitrogen 9 mg/dL (7-17); Calcium 7.9 mg/dL (8.4-10.2); Carbon Dioxide 30 mmol/L (22-30); Chloride 98 mmol/L (98-107); Non-African American GFR(CKD) >90 (>60 ml/min/1.73 sqM); Potassium 2.9 mmol/L (3.5-5.1); Sodium 136 mmol/L (137-145); Total Bilirubin 1.9 mg/dL (0.2-1.3); Total Protein 7.6 g/dL (6.3-8.2)
[2019-10-31 23:01] LABS: Glucose 34 mg/dL (74-99)
[2019-10-31 23:09] LABS: INR 1.4 (<1.2); Partial Thromboplastin Time 28.1 sec (22.0-30.0); Prothrombin Time 14.3 sec (9.0-12.0)
[2019-10-31 23:13] LABS: Glucose,Whole Blood 40 mg/dL (75-99)
[2019-10-31 23:14] LABS: Platelet Count 79 k/uL (150-450)
[2019-10-31 23:15] LABS: Target Cells Present
[2019-10-31] MEDS ORDERED: DEXTROSE 50% SYRINGE 50 ML IVP STA (23:15)
[2019-10-31] MEDS ORDERED: POTASSIUM CHLORIDE ER 10 MEQ TAB.ER.PRT PO STA (23:52)
[2019-10-31] MEDS ORDERED: POTASSIUM CHLORIDE ER 20 MEQ TAB.ER PO STA (23:52)
[2019-10-31] MEDS ORDERED: SODIUM CHLORIDE 0.9% 1,000 ML IV ONE (23:52)
[2019-10-31 23:54] LABS: Glucose,Whole Blood 119 mg/dL (75-99)
[2019-11-01 00:24] LABS: Appearance,Urine Cloudy (Clear); Bilirubin,Urine 1+ (Negative); Blood,Urine Negative (Negative); Color,Urine Dark Yellow; Glucose,Urine (UA) Negative (Negative); Hyaline Casts,Urine 248 /lpf (0-2); Ketones,Urine Trace (Negative); Leukocyte Esterase,Urine Small (Negative); Mucus,Urine Many /hpf; Nitrite,Urine Negative (Negative); PH, Urine 6.5 (5.0-8.0); Protein,Urine 1+ (Negative); RBC,Urine <1 /hpf (0-5); Specific Gravity,Urine 1.024 (1.001-1.035); Squamous Epithelial Cell,Urine 41 /hpf (0-4); WBC,Urine 8 /hpf (0-5)
[2019-11-01 01:11] VITALS: BP 104/73; PULSE 98; RESP 20; TEMP 98.7
--- NOTE | 2019-11-01 01:12 | ED ---
Abdominal Pain HPI - General Chief Complaint: Abdominal Pain Stated Complaint: Abd Pain Time Seen by Provider: 10/31/19 22:04 Source: patient Mode of arrival: ambulatory Limitations: no limitations - History of Present Illness Initial Comments: 49-year-old female patient presents to the emergency department today for evaluation of generalized abdominal pain and swelling. Patient states that she does have a liver disease and does have fluid build up on her abdomen occasionally. Patient states that she does have an appointment coming up with Dr. Read but was feeling weak in the legs this evening. Patient denies any fever or chills. Denies any chest pain or trouble breathing. States that she does have increased pain to the upper abdomen which takes a deep breath. Denies any radiation of the pain through to her back. She states that she did have a normal bowel movement today but has been having loose stools over the last couple of months. Patient denies any recent rash, cough, nausea, vomiting, back pain, numbness, tingling, dizziness, weakness, hematuria, dysuria, urinary urgency, urinary frequency, headache, visual changes, or any other complaints. - Related Data Home Medications Medication Instructions Recorded Confirmed Sertraline [Zoloft] 200 mg PO HS 09/02/14 10/31/19 Zolpidem [Ambien] 10 mg PO HS 09/02/14 10/31/19 LORazepam [Ativan] 1 mg PO DAILY PRN 02/04/18 10/31/19 ARIPiprazole [Abilify] 20 mg PO HS 09/13/18 10/31/19 Insulin Glargine,Hum.rec.anlog 10 units SQ HS 08/23/19 10/31/19 [Lantus Solostar] glyBURIDE/METFORMIN HCL 1 tab PO AC-BID 08/23/19 10/31/19 [Glucovance 5-500 mg] lamoTRIgine [LaMICtal] 25 mg PO BID 08/23/19 10/31/19 Dicyclomine [Bentyl] 20 mg PO QID 10/31/19 10/31/19 Potassium Gluconate 99 mg PO DAILY 10/31/19 10/31/19 traZODone HCL 200 mg PO HS 10/31/19 10/31/19 Previous Rx's Medication Instructions Recorded Furosemide [Lasix] 40 mg PO BID #60 tab 09/07/19 Spironolactone 50 mg PO BID #60 tab 09/07/19 Metoprolol Tartrate [Lopressor] 25 mg PO BID #60 tab 09/09/19 Pantoprazole [Protonix] 40 mg PO AC-BID #60 tablet. 09/09/19 Potassium Chloride ER [K-Dur 20] 40 meq PO DAILY #6 tab 11/01/19 Allergies Allergy/AdvReac Type Severity Reaction Status Date / Time Penicillins Allergy Rash/Hives Verified 10/31/19 23:24 Sulfa (Sulfonamide Allergy Rash/Hives Verified 10/31/19 23:24 Antibiotics) erythromycin base AdvReac Abdominal Verified 10/31/19 23:24 Pain meperidine HCl [From Demerol] AdvReac Confusion/N Verified 10/31/19 23:24 ausea Review of Systems ROS Statement: Those systems with pertinent positive or pertinent negative responses have been documented in the HPI. ROS Other: All systems not noted in ROS Statement are negative. Past Medical History Past Medical History: Diabetes Mellitus, Hyperlipidemia, Hypertension, Liver Disease Additional Past Medical History / Comment(s): mph 1 week ago for ascites, Fatty non alcholic liver disease. History of Any Multi-Drug Resistant Organisms: MRSA, VRE Date of last positivie culture/infection: 09/17/18 VRE 01/2010 MRSA MDRO Source:: VRE URINE/ MRSA ABDOMEN Past Surgical History: Section, Hysterectomy Additional Past Surgical History / Comment(s): ophrarectomy Past Anesthesia/Blood Transfusion Reactions: No Reported Reaction Past Psychological History: Bipolar, Depression Smoking Status: Never smoker Past Alcohol Use History: None Reported Past Drug Use History: None Reported - Past Family History Father Family Medical History: COPD, Hyperlipidemia, Hypertension, Renal Disease Mother Family Medical History: Hyperlipidemia, Hypertension General Exam Limitations: no limitations General appearance: alert, in no apparent distress, other (This is a well- developed, well-nourished adult female patient in no acute distress. Vital signs upon presentation are temperature 99.0F, pulse 116, respirations 18, blood pressure 116/69, pulse ox 98% on room air.) Eye exam: Present: normal appearance, PERRL, EOMI. Absent: scleral icterus, conjunctival injection, periorbital swelling Respiratory exam: Present: normal lung sounds bilaterally. Absent: respiratory distress, wheezes, rales, rhonchi, stridor Cardiovascular Exam: Present: normal rhythm, tachycardia, normal heart sounds. Absent: systolic murmur, diastolic murmur, rubs, gallop, clicks GI/Abdominal exam: Present: soft, distended, normal bowel sounds. Absent: tenderness, guarding, rebound, rigid Neurological exam: Present: alert, oriented X3, CN II-XII intact Psychiatric exam: Present: normal affect, normal mood Skin exam: Present: warm, dry, intact, normal color. Absent: rash Course Vital Signs 10/31/19 10/31/19 11/01/19 21:54 23:02 01:10 Temperature 99 F 99.5 F 98.7 F Pulse Rate 116 H 103 H 98 Respiratory 18 18 20 Rate Blood Pressure 116/69 125/70 104/73 O2 Sat by Pulse 98 95 97 Oximetry Medical Decision Making - Medical Decision Making 49-year-old female patient presents to the emergency department today for evaluation of abdominal distention, discomfort, and leg weakness. Physical examination did reveal a soft nontender abdomen. Lungs were clear to auscultation with good air movement. Labs reviewed and did reveal white blood cell count of 3.4, hemoglobin 9.9, INR 1.4, potassium 2.9. Magnesium is 1.6. Patient's blood sugar was 34 on arrival, we did administer an amp of D50 and gave her some fluid. It did improve to 119. 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 Since patient's vital signs are stable and s he does not appear to be in any respiratory distress and has no abdominal tenderness we will discharge to follow-up with her GI specialist to discuss possible paracentesis. She is given oral potassium here, she'll be given a prescription for potassium supplement at home. She is instructed to follow-up with her primary care physician for recheck in 1-2 days. She is urged to discuss repeat potassium level. Return parameters were discussed in detail. She verbalizes understanding and agrees with this plan. - Lab Data Result diagrams: 10/31/19 22:15 10/31/19 22:15 Lab Results 10/31/19 10/31/19 10/31/19 Range/Units 22:15 22:15 22:15 WBC 3.4 L (3.8-10.6) k/uL RBC 4.15 (3.80-5.40) m/uL Hgb 9.9 L (11.4-16.0) gm/dL Hct 31.5 L (34.0-46.0) % MCV 76.0 L (80.0-100.0) fL MCH 23.8 L (25.0-35.0) pg MCHC 31.3 (31.0-37.0) g/dL RDW 18.9 H (11.5-15.5) % Plt Count 79 L (150-450) k/uL Neutrophils % 71 % Lymphocytes % 18 % Monocytes % 7 % Eosinophils % 1 % Basophils % 0 % Neutrophils # 2.4 (1.3-7.7) k/uL Lymphocytes # 0.6 L (1.0-4.8) k/uL Monocytes # 0.2 (0-1.0) k/uL Eosinophils # 0.1 (0-0.7) k/uL Basophils # 0.0 (0-0.2) k/uL Manual Slide Review Performed Hypochromasia Moderate Anisocytosis Slight Microcytosis Moderate Target Cells Present PT 14.3 H (9.0-12.0) sec INR 1.4 H (<1.2) APTT 28.1 (22.0-30.0) sec Sodium 136 L (137-145) mmol/L Potassium 2.9 L (3.5-5.1) mmol/L Chloride 98 (98-107) mmol/L Carbon Dioxide 30 (22-30) mmol/L Anion Gap 8 mmol/L BUN 9 (7-17) mg/dL Creatinine 0.61 (0.52-1.04) mg/dL Est GFR (CKD-EPI)AfAm >90 (>60 ml/min/1.73 sqM) Est GFR (CKD-EPI)NonAf >90 (>60 ml/min/1.73 sqM) Glucose 34 L* (74-99) mg/dL POC Glucose (mg/dL) (75-99) mg/dL POC Glu Loom Overhauler ID Lactic Ac Sepsis Rflx Plasma Lactic Acid Mehul (0.7-2.0) mmol/L Calcium 7.9 L (8.4-10.2) mg/dL Magnesium (1.6-2.3) mg/dL Total Bilirubin 1.9 H (0.2-1.3) mg/dL AST 150 H (14-36) U/L ALT 43 H (4-34) U/L Alkaline Phosphatase 156 H (38-126) U/L Troponin I (0.000-0.034) ng/mL Total Protein 7.6 (6.3-8.2) g/dL Albumin 2.8 L (3.5-5.0) g/dL Amylase 38 (30-110) U/L Lipase 268 (23-300) U/L Urine Color Urine Appearance (Clear) Urine pH (5.0-8.0) Ur Specific [place] (1.001-1.035) Urine Protein (Negative) Urine Glucose (UA) (Negative) Urine Ketones (Negative) Urine Blood (Negative) Urine Nitrite (Negative) Urine Bilirubin (Negative) Urine Urobilinogen (<2.0) mg/dL Ur Leukocyte Esterase (Negative) Urine RBC (0-5) /hpf Urine WBC (0-5) /hpf Ur Squamous Epith Cells (0-4) /hpf Hyaline Casts (0-2) /lpf Urine Mucus (None) /hpf 10/31/19 10/31/19 10/31/19 Range/Units 22:15 22:15 22:15 WBC (3.8-10.6) k/uL RBC (3.80-5.40) m/uL Hgb (11.4-16.0) gm/dL Hct (34.0-46.0) % MCV (80.0-100.0) fL MCH (25.0-35.0) pg MCHC (31.0-37.0) g/dL RDW (11.5-15.5) % Plt Count (150-450) k/uL Neutrophils % % Lymphocytes % % Monocytes % % Eosinophils % % Basophils % % Neutrophils # (1.3-7.7) k/uL Lymphocytes # (1.0-4.8) k/uL Monocytes # (0-1.0) k/uL Eosinophils # (0-0.7) k/uL Basophils # (0-0.2) k/uL Manual Slide Review Hypochromasia Anisocytosis Microcytosis Target Cells PT (9.0-12.0) sec INR (<1.2) APTT (22.0-30.0) sec Sodium (137-145) mmol/L Potassium (3.5-5.1) mmol/L Chloride (98-107) mmol/L Carbon Dioxide (22-30) mmol/L Anion Gap mmol/L BUN (7-17) mg/dL Creatinine (0.52-1.04) mg/dL Est GFR (CKD-EPI)AfAm (>60 ml/min/1.73 sqM) Est GFR (CKD-EPI)NonAf (>60 ml/min/1.73 sqM) Glucose (74-99) mg/dL POC Glucose (mg/dL) (75-99) mg/dL POC Glu Loom Overhauler ID Lactic Ac Sepsis Rflx Plasma Lactic Acid Mehul 2.3 H* (0.7-2.0) mmol/L Calcium (8.4-10.2) mg/dL Magnesium 1.6 (1.6-2.3) mg/dL Total Bilirubin (0.2-1.3) mg/dL AST (14-36) U/L ALT (4-34) U/L Alkaline Phosphatase (38-126) U/L Troponin I <0.012 (0.000-0.034) ng/mL Total Protein (6.3-8.2) g/dL Albumin (3.5-5.0) g/dL Amylase (30-110) U/L Lipase (23-300) U/L Urine Color Urine Appearance (Clear) Urine pH (5.0-8.0) Ur Specific [place] (1.001-1.035) Urine Protein (Negative) Urine Glucose (UA) (Negative) Urine Ketones (Negative) Urine Blood (Negative) Urine Nitrite (Negative) Urine Bilirubin (Negative) Urine Urobilinogen (<2.0) mg/dL Ur Leukocyte Esterase (Negative) Urine RBC (0-5) /hpf Urine WBC (0-5) /hpf Ur Squamous Epith Cells (0-4) /hpf Hyaline Casts (0-2) /lpf Urine Mucus (None) /hpf 10/31/19 10/31/19 10/31/19 Range/Units 23:01 23:11 23:52 WBC (3.8-10.6) k/uL RBC (3.80-5.40) m/uL Hgb (11.4-16.0) gm/dL Hct (34.0-46.0) % MCV (80.0-100.0) fL MCH (25.0-35.0) pg MCHC (31.0-37.0) g/dL RDW (11.5-15.5) % Plt Count (150-450) k/uL Neutrophils % % Lymphocytes % % Monocytes % % Eosinophils % % Basophils % % Neutrophils # (1.3-7.7) k/uL Lymphocytes # (1.0-4.8) k/uL Monocytes # (0-1.0) k/uL Eosinophils # (0-0.7) k/uL Basophils # (0-0.2) k/uL Manual Slide Review Hypochromasia Anisocytosis Microcytosis Target Cells PT (9.0-12.0) sec INR (<1.2) APTT (22.0-30.0) sec Sodium (137-145) mmol/L Potassium (3.5-5.1) mmol/L Chloride (98-107) mmol/L Carbon Dioxide (22-30) mmol/L Anion Gap mmol/L BUN (7-17) mg/dL Creatinine (0.52-1.04) mg/dL Est GFR (CKD-EPI)AfAm (>60 ml/min/1.73 sqM) Est GFR (CKD-EPI)NonAf (>60 ml/min/1.73 sqM) Glucose (74-99) mg/dL POC Glucose (mg/dL) 40 L 119 H (75-99) mg/dL POC Glu Loom Overhauler Jayro Butcher Mckenzie Lactic Ac Sepsis Rflx Y Plasma Lactic Acid Mehul (0.7-2.0) mmol/L Calcium (8.4-10.2) mg/dL Magnesium (1.6-2.3) mg/dL Total Bilirubin (0.2-1.3) mg/dL AST (14-36) U/L ALT (4-34) U/L Alkaline Phosphatase (38-126) U/L Troponin I (0.000-0.034) ng/mL Total Protein (6.3-8.2) g/dL Albumin (3.5-5.0) g/dL Amylase (30-110) U/L Lipase (23-300) U/L Urine Color Urine Appearance (Clear) Urine pH (5.0-8.0) Ur Specific [place] (1.001-1.035) Urine Protein (Negative) Urine Glucose (UA) (Negative) Urine Ketones (Negative) Urine Blood (Negative) Urine Nitrite (Negative) Urine Bilirubin (Negative) Urine Urobilinogen (<2.0) mg/dL Ur Leukocyte Esterase (Negative) Urine RBC (0-5) /hpf Urine WBC (0-5) /hpf Ur Squamous Epith Cells (0-4) /hpf Hyaline Casts (0-2) /lpf Urine Mucus (None) /hpf 11/01/19 Range/Units 00:00 WBC (3.8-10.6) k/uL RBC (3.80-5.40) m/uL Hgb (11.4-16.0) gm/dL Hct (34.0-46.0) % MCV (80.0-100.0) fL MCH (25.0-35.0) pg MCHC (31.0-37.0) g/dL RDW (11.5-15.5) % Plt Count (150-450) k/uL Neutrophils % % Lymphocytes % % Monocytes % % Eosinophils % % Basophils % % Neutrophils # (1.3-7.7) k/uL Lymphocytes # (1.0-4.8) k/uL Monocytes # (0-1.0) k/uL Eosinophils # (0-0.7) k/uL Basophils # (0-0.2) k/uL Manual Slide Review Hypochromasia Anisocytosis Microcytosis Target Cells PT (9.0-12.0) sec INR (<1.2) APTT (22.0-30.0) sec Sodium (137-145) mmol/L Potassium (3.5-5.1) mmol/L Chloride (98-107) mmol/L Carbon Dioxide (22-30) mmol/L Anion Gap mmol/L BUN (7-17) mg/dL Creatinine (0.52-1.04) mg/dL Est GFR (CKD-EPI)AfAm (>60 ml/min/1.73 sqM) Est GFR (CKD-EPI)NonAf (>60 ml/min/1.73 sqM) Glucose (74-99) mg/dL POC Glucose (mg/dL) (75-99) mg/dL POC Glu Loom Overhauler ID Lactic Ac Sepsis Rflx Plasma Lactic Acid Mehul (0.7-2.0) mmol/L Calcium (8.4-10.2) mg/dL Magnesium (1.6-2.3) mg/dL Total Bilirubin (0.2-1.3) mg/dL AST (14-36) U/L ALT (4-34) U/L Alkaline Phosphatase (38-126) U/L Troponin I (0.000-0.034) ng/mL Total Protein (6.3-8.2) g/dL Albumin (3.5-5.0) g/dL Amylase (30-110) U/L Lipase (23-300) U/L Urine Color Dark Yellow Urine Appearance Cloudy H (Clear) Urine pH 6.5 (5.0-8.0) Ur Specific [place] 1.024 (1.001-1.035) Urine Protein 1+ H (Negative) Urine Glucose (UA) Negative (Negative) Urine Ketones Trace H (Negative) Urine Blood Negative (Negative) Urine Nitrite Negative (Negative) Urine Bilirubin 1+ H (Negative) Urine Urobilinogen 12.0 (<2.0) mg/dL Ur Leukocyte Esterase Small H (Negative) Urine RBC <1 (0-5) /hpf Urine WBC 8 H (0-5) /hpf Ur Squamous Epith Cells 41 H (0-4) /hpf Hyaline Casts 248 H (0-2) /lpf Urine Mucus Many H (None) /hpf - EKG Data -: EKG Interpreted by Me EKG Comments: EKG obtained at 2233 shows sinus tachycardia at a ventricular rate is 105, SC interval 168, QRS duration 84, QT 398, QTC 526. No evidence of ST elevation or depression. Disposition Clinical Impression: Ascites, Hypoglycemia, Hypokalemia Disposition: HOME SELF-CARE Condition: Good Instructions (If sedation given, give patient instructions): Hypokalemia (ED), Non-diabetic Hypoglycemia (ED), Ascites (ED) Additional Instructions: Wear SCOTTIE hose to help with swelling in the legs. Take potassium as directed. Follow up with Dr. Read for recheck regarding the abdominal fluid. Follow up with your primary care physician for recheck in 1-2 days. Have repeat potassium level drawn. Return to the emergency department immediately for any new, worsening, or concerning symptoms. Prescriptions: Potassium Chloride ER [K-Dur 20] 40 meq PO DAILY #6 tab Is patient prescribed a controlled substance at d/c from ED?: No Referrals: Woodrow Richards [Primary Care Provider] - 1-2 days Nate Read MD [STAFF PHYSICIAN] - 1-2 days Time of Disposition: 01:18
[2019-11-01 01:29] LABS: Glucose,Whole Blood 121 mg/dL (75-99)
== END 2019-11-01 01:43 | disposition home or self-care (01) ==
LOC: EC 21:52
DX: R18.8 Other ascites (principal); E87.6 Hypokalemia; E11.649 Type 2 diabetes mellitus with hypoglycemia without coma; R29.898 Other symptoms and signs involving the musculoskeletal system; E78.5 Hyperlipidemia, unspecified; I10 Essential (primary) hypertension; F31.9 Bipolar disorder, unspecified; Z88.0 Allergy status to penicillin; Z88.1 Allergy status to other antibiotic agents; Z88.2 Allergy status to sulfonamides; Z88.5 Allergy status to narcotic agent; Z79.4 Long term (current) use of insulin; Z79.899 Other long term (current) drug therapy; Z90.710 Acquired absence of both cervix and uterus; Z90.722 Acquired absence of ovaries, bilateral; Z86.14 Personal history of Methicillin resistant Staphylococcus aureus infection
CPT/HCPCS: 93005; 80053; 82150; 83605; 83690; 83735; 84484; 85025; 85610; 85730; 99284; 96374; 96375; 96361; J2405; 36415; 81001

== ENCOUNTER 2019-11-03 08:46 | Emergency (ER) | payer OTHER, MEDICARE ==
--- NOTE | 2019-11-03 09:16 | ED ---
General Adult HPI - General Chief complaint: Fall Stated complaint: Fall Time Seen by Provider: 11/03/19 08:50 Source: patient, EMS, RN notes reviewed, old records reviewed Mode of arrival: EMS Limitations: no limitations - History of Present Illness Initial comments: This is a 49-year-old female who presents emergency Department complaining that she went to get up into a truck and fell back and hit her head on the ground. Patient complains of head pain patient complains of some neck pain. Patient denies numbness weakness. Patient also states she hurt her right big toe. Patient denies any loss of consciousness or being days. Patient denies any nausea or vomiting. Patient denies any back pain or chest pain. Patient denies any other extremity pain except for the toe injury - Related Data Home Medications Medication Instructions Recorded Confirmed Sertraline [Zoloft] 200 mg PO HS 09/02/14 11/03/19 Zolpidem [Ambien] 10 mg PO HS 09/02/14 11/03/19 LORazepam [Ativan] 1 mg PO DAILY PRN 02/04/18 11/03/19 ARIPiprazole [Abilify] 20 mg PO HS 09/13/18 11/03/19 Insulin Glargine,Hum.rec.anlog 10 units SQ HS 08/23/19 11/03/19 [Lantus Solostar] glyBURIDE/METFORMIN HCL 1 tab PO AC-BID 08/23/19 11/03/19 [Glucovance 5-500 mg] lamoTRIgine [LaMICtal] 25 mg PO BID 08/23/19 11/03/19 Dicyclomine [Bentyl] 20 mg PO QID 10/31/19 11/03/19 Potassium Gluconate 99 mg PO DAILY 10/31/19 11/03/19 traZODone HCL 200 mg PO HS 10/31/19 11/03/19 Previous Rx's Medication Instructions Recorded Furosemide [Lasix] 40 mg PO BID #60 tab 09/07/19 Spironolactone 50 mg PO BID #60 tab 09/07/19 Metoprolol Tartrate [Lopressor] 25 mg PO BID #60 tab 09/09/19 Pantoprazole [Protonix] 40 mg PO AC-BID #60 tablet. 09/09/19 Potassium Chloride ER [K-Dur 20] 40 meq PO DAILY #6 tab 11/01/19 Allergies Allergy/AdvReac Type Severity Reaction Status Date / Time Penicillins Allergy Rash/Hives Verified 11/03/19 10:40 Sulfa (Sulfonamide Allergy Rash/Hives Verified 11/03/19 10:40 Antibiotics) erythromycin base AdvReac Abdominal Verified 11/03/19 10:40 Pain meperidine HCl [From Demerol] AdvReac Confusion/N Verified 11/03/19 10:40 ausea Review of Systems ROS Statement: Those systems with pertinent positive or pertinent negative responses have been documented in the HPI. ROS Other: All systems not noted in ROS Statement are negative. Past Medical History Past Medical History: Diabetes Mellitus, Hyperlipidemia, Hypertension, Liver Disease Additional Past Medical History / Comment(s): mph 1 week ago for ascites, Fatty non alcholic liver disease. History of Any Multi-Drug Resistant Organisms: MRSA, VRE Date of last positivie culture/infection: 09/17/18 VRE 01/2010 MRSA MDRO Source:: VRE URINE/ MRSA ABDOMEN Past Surgical History: Section, Hysterectomy Additional Past Surgical History / Comment(s): ophrarectomy Past Anesthesia/Blood Transfusion Reactions: No Reported Reaction Past Psychological History: Bipolar, Depression Smoking Status: Never smoker Past Alcohol Use History: None Reported Past Drug Use History: None Reported - Past Family History Father Family Medical History: COPD, Hyperlipidemia, Hypertension, Renal Disease Mother Family Medical History: Hyperlipidemia, Hypertension General Exam - General Exam Comments Initial Comments: GENERAL: Patient is well-developed and well-nourished. Patient is nontoxic and well- hydrated and is in mild distress. Patient has a hematoma to the occipital region of the scalp. ENT: Neck is soft and supple. No significant lymphadenopathy is noted. Oropharynx is clear. Moist mucous membranes. Neck has full range of motion without eliciting any pain. EYES: The sclera were anicteric and conjunctiva were pink and moist. Extraocular movements were intact and pupils were equal round and reactive to light. Eyelids were unremarkable. PULMONARY: Unlabored respirations. Good breath sounds bilaterally. No audible rales rhonchi or wheezing was noted. CARDIOVASCULAR: There is a regular rate and rhythm without any murmurs gallops or rubs. ABDOMEN: Soft and nontender with normal bowel sounds. SKIN: Skin is clear with no lesions or rashes and otherwise unremarkable. NEUROLOGIC: Patient is alert and oriented x3. Cranial nerves II through XII are grossly intact. Motor and sensory are also intact. Normal speech, volume and content. Symmetrical smile. MUSCULOSKELETAL: Normal extremities with adequate strength and full range of motion. LYMPHATICS: No significant lymphadenopathy is noted PSYCHIATRIC: Normal psychiatric evaluation. Limitations: no limitations Course Vital Signs 11/03/19 11/03/19 11/03/19 08:48 10:18 11:07 Temperature 98.3 F Pulse Rate 119 H 107 H 105 H Respiratory 16 16 16 Rate Blood Pressure 127/79 115/74 123/70 O2 Sat by Pulse 99 96 93 L Oximetry Medical Decision Making - Medical Decision Making EKG shows a sinus rhythm at a rate of 117 bpm QRS is 86 TN interval is 160 QRS is 86 QT interval 420 QTC is 585. EKG shows no ST segment elevation or depression. X-ray of the toe shows no acute fracture. CT of the brain and C-spine showed no acute abnormality. - Lab Data Lab Results 11/03/19 Range/Units 08:51 POC Glucose (mg/dL) 145 H (75-99) mg/dL POC Glu [employer] Data Entry ID Annamarie Barron Disposition Clinical Impression: Scalp hematoma, Fall, Strain of toe Disposition: HOME SELF-CARE Condition: Good Instructions (If sedation given, give patient instructions): Head Injury (ED), Fall Prevention (ED), Hematoma (ED) Is patient prescribed a controlled substance at d/c from ED?: No Referrals: Woodrow Richards [Primary Care Provider] - 1-2 days Time of Disposition: 10:50
--- NOTE | 2019-11-03 10:06 | CT ---
EXAMINATION TYPE: CT brain mich cespedes DATE OF EXAM: 11/03/2019 COMPARISON: None HISTORY: Fall CT DLP: 1464.[address] Brain: Unenhanced CT of the brain was performed. The ventricles, basal cisterns and sulci overlying the cerebral convexities demonstrate a normal appe arance. There is no evidence for intracranial hemorrhage or sulcal effacement. No mass effects are seen. If symptoms persist consider MRI. Osseous calvarium is intact. Posterior left parietal scalp hematoma and laceration. IMPRESSION: No acute intracranial process CT Cervical Spine: Unenhanced CT of the cervical spine was performed with bone and soft tissue window settings submitted . Coronal and sagittal reconstruction is obtained. There is normal alignment and prevertebral soft tissues. I do not see evidence for fracture or sublu xation. No significant degenerative changes are present. The lung apices are clear. IMPRESSION: No evidence for acute fracture or subluxation of the cervical spine.
--- NOTE | 2019-11-03 10:17 | XR ---
Right toe HISTORY: Trauma and pain, great toe pain, fall 3 views of the first digit of the right foot Bone mineralization, joint spaces and alignment are maintained. There is marginal spurring at the met atarsophalangeal joint. No fracture or dislocation. IMPRESSION: Osteoarthritis.
[2019-11-03] MEDS ORDERED: ACETAMINOPHEN TAB 500 MG TAB PO STA (10:46)
[2019-11-03 15:27] LABS: Glucose,Whole Blood 145 mg/dL (75-99)
[2019-11-04 09:59] VITALS: BP 123/70; PULSE 105; RESP 16; TEMP 98.3
== END 2019-11-03 11:12 | disposition home or self-care (01) ==
LOC: EC 08:46
DX: S00.03XA Contusion of scalp, initial encounter (principal); S96.911A Strain of unspecified muscle and tendon at ankle and foot level, right foot, initial encounter; M54.2 Cervicalgia; E78.5 Hyperlipidemia, unspecified; E11.65 Type 2 diabetes mellitus with hyperglycemia; I10 Essential (primary) hypertension; F31.9 Bipolar disorder, unspecified; Z88.0 Allergy status to penicillin; Z88.2 Allergy status to sulfonamides; Z88.5 Allergy status to narcotic agent; Z79.4 Long term (current) use of insulin; Z79.899 Other long term (current) drug therapy; Z86.14 Personal history of Methicillin resistant Staphylococcus aureus infection; V48.4XXA Person boarding or alighting a car injured in noncollision transport accident, initial encounter; Y92.89 Other specified places as the place of occurrence of the external cause
CPT/HCPCS: 36415; 70450; 72125; 93005; 99285

== ENCOUNTER 2019-11-14 13:45 | Emergency (ER) | payer OTHER, MEDICARE ==
[2019-11-14 13:55] VITALS: RESP 18; TEMP 99.2
[2019-11-14] MEDS ORDERED: SODIUM CHLORIDE 0.9% 500 ML 500 ML IV ONE (15:16)
[2019-11-14 15:26] LABS: Anisocytosis Slight; Basophils % (A) 0 %; Eosinophils % (A) 1 %; HCT 32.9 % (34.0-46.0); HGB 10.1 gm/dL (11.4-16.0); Hypochromasia Marked; Lymphocytes # (A) 0.3 k/uL (1.0-4.8); Lymphocytes % (A) 12 %; MCH 23.9 pg (25.0-35.0); MCHC 30.7 g/dL (31.0-37.0); MCV 77.9 fL (80.0-100.0); Mean Platelet Volume 8.4; Microcytosis Slight; Monocytes # (A) 0.2 k/uL (0-1.0); Monocytes % (A) 6 %; Neutrophils # (A) 2.3 k/uL (1.3-7.7); Neutrophils % (A) 79 %; RBC 4.23 m/uL (3.80-5.40); RDW 19.9 % (11.5-15.5); WBC 2.9 k/uL (3.8-10.6)
--- NOTE | 2019-11-14 15:28 | ED ---
General Adult HPI - General Source: patient, EMS, RN notes reviewed, old records reviewed Mode of arrival: EMS Limitations: no limitations <Jose A Aguilera - Last Filed: 11/14/19 17:10> <Elle Griffin - Last Filed: 11/15/19 15:26> - General Chief complaint: Fall Stated complaint: Fall Time Seen by Provider: 11/14/19 14:14 - History of Present Illness Initial comments: 49-year-old female patient past history of type 2 diabetes hyperlipidemia hypertension, nonalcoholic fatty liver disease presents to ED with chief complaint of generalized weakness. Patient reports that for the last 3 months she has been feeling very weak. Symptoms have gotten worse in the last month. Patient reports that in particular both of her legs are very weak she states that they give out on her and causes her to fall. She reports that in the last month she estimates that she has had 7 falls. She reports that she has also been having some diarrhea and nausea and vomiting over this timeframe. She fell today and she hit her head denies any loss of consciousness. Also injured her right foot. Denies any other complaints. Systemic: Pt denies fatigue, fever/chills, rash. Pt denies weakness, night sweats, weight loss. Neuro: Pt denies headache, visual disturbances, syncope or pre-syncope. HEENT: Pt denies ocular discharge or irritation, otalgia, rhinorrhea, pharyngitis or notable lymphadenopathy. Cardiopulmonary: Pt denies chest pain, SOB, heart palpitations, dyspnea on exertion. Abdominal/GI: Pt denies abdominal pain, n/v/d. : Pt denies dysuria, burning w/ urination, frequency/urgency. Denies new onset urinary or bowel incontinence. Neuro: Pt denies new onset weakness, paresthesias. (Jose A Aguilera) - Related Data Home Medications Medication Instructions Recorded Confirmed Sertraline [Zoloft] 200 mg PO DAILY 09/02/14 11/14/19 Zolpidem [Ambien] 10 mg PO HS 09/02/14 11/14/19 LORazepam [Ativan] 1 mg PO DAILY PRN 02/04/18 11/14/19 ARIPiprazole [Abilify] 20 mg PO DAILY 09/13/18 11/14/19 lamoTRIgine [LaMICtal] 25 mg PO BID 08/23/19 11/14/19 Potassium Gluconate 99 mg PO DAILY 10/31/19 11/14/19 traZODone HCL 200 mg PO HS 10/31/19 11/14/19 Spironolactone 50 mg PO DAILY 11/14/19 11/14/19 Previous Rx's Medication Instructions Recorded Furosemide [Lasix] 40 mg PO BID #60 tab 09/07/19 Pantoprazole [Protonix] 40 mg PO AC-BID #60 tablet. 09/09/19 Allergies Allergy/AdvReac Type Severity Reaction Status Date / Time Penicillins Allergy Rash/Hives Verified 11/14/19 16:16 Sulfa (Sulfonamide Allergy Rash/Hives Verified 11/14/19 16:16 Antibiotics) erythromycin base AdvReac Abdominal Verified 11/14/19 16:16 Pain meperidine HCl [From Demerol] AdvReac Confusion/N Verified 11/14/19 16:16 ausea Review of Systems ROS Other: All systems not noted in ROS Statement are negative. <Jose A Aguilera - Last Filed: 11/14/19 17:10> ROS Other: All systems not noted in ROS Statement are negative. <Elle Griffin - Last Filed: 11/15/19 15:26> ROS Statement: Those systems with pertinent positive or pertinent negative responses have been documented in the HPI. Past Medical History Past Medical History: Diabetes Mellitus, Hyperlipidemia, Hypertension, Liver Disease Additional Past Medical History / Comment(s): mph 1 week ago for ascites, Fatty non alcholic liver disease. History of Any Multi-Drug Resistant Organisms: MRSA, VRE Date of last positivie culture/infection: 09/17/18 VRE 01/2010 MRSA MDRO Source:: VRE URINE/ MRSA ABDOMEN Past Surgical History: Section, Hysterectomy Additional Past Surgical History / Comment(s): ophrarectomy Past Anesthesia/Blood Transfusion Reactions: No Reported Reaction Past Psychological History: Bipolar, Depression Smoking Status: Former smoker Past Alcohol Use History: None Reported Past Drug Use History: None Reported - Past Family History Father Family Medical History: COPD, Hyperlipidemia, Hypertension, Renal Disease Mother Family Medical History: Hyperlipidemia, Hypertension <Jose A Aguilera - Last Filed: 11/14/19 17:10> General Exam Limitations: no limitations <Jose A Aguilera - Last Filed: 11/14/19 17:10> - General Exam Comments Initial Comments: Constitutional: NAD, AOX3, Pt has pleasant affect. HEENT: NC/AT, trachea midline, neck supple, no lymphadenopathy. External ears appear normal, without discharge. Mucous membranes moist. Eyes PERRLA, EOM intact. There is no scleral icterus. No pallor noted. Cardiopulmonary: RRR, no murmurs, rubs or gallops, no JVD noted. Lungs CTAB in anterior and posterior kevin. No peripheral edema. Abdominal exam: Abdomen soft and non-distended. Abdomen non-tender to palpation in all 4 quadrants. Bowel sounds active in LLQ. No hepatosplenomegaly. No ecchymosis Neuro: CN II-XII intact. No nuchal rigidity. No raccon eyes, no hernandez sign, no hemotympanum. No cervical spinal tenderness. NIH 0. MSK: No posterior calf tenderness bilaterally, homans sign negative bilaterally. Posterior tibialis and radial pulse +2 bilaterally. Sensation intact in upper and lower extremities. Full active ROM in upper and lower extremities. Dorsal aspect of right foot is mildly tender to palpation. (Jose A Aguilera) Course Vital Signs 11/14/19 11/14/19 13:51 16:09 Temperature 99.2 F Pulse Rate 112 H 97 Respiratory 18 18 Rate Blood Pressure 138/79 123/73 O2 Sat by Pulse 95 96 Oximetry Medical Decision Making - Lab Data Result diagrams: 11/14/19 14:55 11/14/19 14:55 <Jose A Aguilera - Last Filed: 11/14/19 17:10> - Lab Data Result diagrams: 11/14/19 14:55 11/14/19 14:55 <Elle Griffin - Last Filed: 11/15/19 15:26> - Medical Decision Making 49-year-old female patient presents ED for evaluation of falls. Patient will signs are stable, afebrile. Physical exam displayed dose aspect of right foot, tender to palpation. Laboratory investigations revealed platelets of 63 around baseline. Neutropenia of 2.9 also around baseline and chronic microcytic anemia. Chemistry revealed mild transaminitis is around baseline. EKG displayed prolonged QT. Plain film of foot is negative for acute osseous process there is soft tissue swelling. CT brain and C-spine displayed subdural hematoma. Patient then placed at 30 will be transferred to the clinic on for neurosurgery evaluation. Accepting physician Dr. Armijo. Case discussed in depth with Dr. Griffin. (Jose A Aguilera) I was available for consultation in the emergency department. The history and physical exam were done by the midlevel provider. I was consulted for this patients care. I reviewed the case with the midlevel provider and based on their presentation of the patient, I agree with the assessment, medical decision making and plan of care as documented. I evaluated the patient myself. She is requesting something for nausea and was given IM Tigan. Patient will be transported to a facility with neurosurgical care. Patient was transferred priority one in stable condition Chart was dictated using Q[employer] dictation software. Attempts were made to correct any dictation errors however some typographical errors may persist. (Elle Griffin) - Lab Data Lab Results 11/14/19 11/14/19 11/14/19 Range/Units 14:55 14:55 14:55 WBC 2.9 L (3.8-10.6) k/uL RBC 4.23 (3.80-5.40) m/uL Hgb 10.1 L (11.4-16.0) gm/dL Hct 32.9 L (34.0-46.0) % MCV 77.9 L (80.0-100.0) fL MCH 23.9 L (25.0-35.0) pg MCHC 30.7 L (31.0-37.0) g/dL RDW 19.9 H (11.5-15.5) % Plt Count 63 L (150-450) k/uL Neutrophils % 79 % Lymphocytes % 12 % Monocytes % 6 % Eosinophils % 1 % Basophils % 0 % Neutrophils # 2.3 (1.3-7.7) k/uL Lymphocytes # 0.3 L (1.0-4.8) k/uL Monocytes # 0.2 (0-1.0) k/uL Eosinophils # 0.0 (0-0.7) k/uL Basophils # 0.0 (0-0.2) k/uL Manual Slide Review Performed Hypochromasia Marked Anisocytosis Slight Microcytosis Slight Sodium 139 (137-145) mmol/L Potassium 3.4 L (3.5-5.1) mmol/L Chloride 101 (98-107) mmol/L Carbon Dioxide 31 H (22-30) mmol/L Anion Gap 7 mmol/L BUN 10 (7-17) mg/dL Creatinine 0.64 (0.52-1.04) mg/dL Est GFR (CKD-EPI)AfAm >90 (>60 ml/min/1.73 sqM) Est GFR (CKD-EPI)NonAf >90 (>60 ml/min/1.73 sqM) Glucose 110 H (74-99) mg/dL Plasma Lactic Acid Mehul 1.4 (0.7-2.0) mmol/L Calcium 8.0 L (8.4-10.2) mg/dL Phosphorus 3.1 (2.5-4.5) mg/dL Magnesium 1.6 (1.6-2.3) mg/dL Total Bilirubin 2.4 H (0.2-1.3) mg/dL AST 135 H (14-36) U/L ALT 50 H (4-34) U/L Alkaline Phosphatase 195 H (38-126) U/L Troponin I (0.000-0.034) ng/mL Total Protein 8.1 (6.3-8.2) g/dL Albumin 2.9 L (3.5-5.0) g/dL 11/14/19 Range/Units 14:55 WBC (3.8-10.6) k/uL RBC (3.80-5.40) m/uL Hgb (11.4-16.0) gm/dL Hct (34.0-46.0) % MCV (80.0-100.0) fL MCH (25.0-35.0) pg MCHC (31.0-37.0) g/dL RDW (11.5-15.5) % Plt Count (150-450) k/uL Neutrophils % % Lymphocytes % % Monocytes % % Eosinophils % % Basophils % % Neutrophils # (1.3-7.7) k/uL Lymphocytes # (1.0-4.8) k/uL Monocytes # (0-1.0) k/uL Eosinophils # (0-0.7) k/uL Basophils # (0-0.2) k/uL Manual Slide Review Hypochromasia Anisocytosis Microcytosis Sodium (137-145) mmol/L Potassium (3.5-5.1) mmol/L Chloride (98-107) mmol/L Carbon Dioxide (22-30) mmol/L Anion Gap mmol/L BUN (7-17) mg/dL Creatinine (0.52-1.04) mg/dL Est GFR (CKD-EPI)AfAm (>60 ml/min/1.73 sqM) Est GFR (CKD-EPI)NonAf (>60 ml/min/1.73 sqM) Glucose (74-99) mg/dL Plasma Lactic Acid Mehul (0.7-2.0) mmol/L Calcium (8.4-10.2) mg/dL Phosphorus (2.5-4.5) mg/dL Magnesium (1.6-2.3) mg/dL Total Bilirubin (0.2-1.3) mg/dL AST (14-36) U/L ALT (4-34) U/L Alkaline Phosphatase (38-126) U/L Troponin I <0.012 (0.000-0.034) ng/mL Total Protein (6.3-8.2) g/dL Albumin (3.5-5.0) g/dL Disposition Is patient prescribed a controlled substance at d/c from ED?: No - Out of Hospital Transfer - Req. Specs Out of Hospital Transfer - Requested Specifics: Other Emergency Center ([facility]) <Jose A Aguilera - Last Filed: 11/14/19 17:10> <Elle Griffin - Last Filed: 11/15/19 15:26> Clinical Impression: Subdural hematoma, Fall Disposition: OTHER INSTITUTION NOT DEFINED Condition: Critical Referrals: Woodrow Richards [Primary Care Provider] - 1-2 days
[2019-11-14 15:38] LABS: ALT 50 U/L (4-34); AST 135 U/L (14-36); African American GFR (CKD) >90 (>60 ml/min/1.73 sqM); Albumin 2.9 g/dL (3.5-5.0); Alkaline Phosphatase 195 U/L (38-126); Anion Gap 7 mmol/L; Blood Urea Nitrogen 10 mg/dL (7-17); Carbon Dioxide 31 mmol/L (22-30); Chloride 101 mmol/L (98-107); Glucose 110 mg/dL (74-99); Magnesium 1.6 mg/dL (1.6-2.3); Non-African American GFR(CKD) >90 (>60 ml/min/1.73 sqM); Phosphorus 3.1 mg/dL (2.5-4.5); Potassium 3.4 mmol/L (3.5-5.1); Sodium 139 mmol/L (137-145); Total Bilirubin 2.4 mg/dL (0.2-1.3); Total Protein 8.1 g/dL (6.3-8.2)
--- NOTE | 2019-11-14 15:50 | XR ---
Right foot HISTORY: Pain, trauma 3 views of the right foot Joint spaces and alignment are maintained. Bone mineralization is reduced. Digits are flexed. Degener ative change present at the metatarsophalangeal joint of the first digit. There is a plantar spur. So ft tissue swelling noted. IMPRESSION: No acute bone abnormality. There is soft tissue swelling. Low bone mineralization.
[2019-11-14 16:13] VITALS: BP 123/73; PULSE 97
--- NOTE | 2019-11-14 16:16 | CT ---
EXAMINATION TYPE: CT brain [place] con DATE OF EXAM: 11/14/2019 COMPARISON: 11/03/2019 HISTORY: 49-year-old female with fall, pain, head trauma CT DLP: 1644.3 mGycm Automated exposure control for dose reduction was used. Technique: Examination of the head was done in axial plane without intravenous contrast. Coronal and sagittal reconstructions performed. CT of the cervical spine was obtained in axial plane without intravenous injection of contrast mater ial. Coronal and sagittal reformatted images were obtained from the axial views for evaluation of f ractures, spinal alignment and canal. FINDINGS: Head: There is a left posterior scalp contusion. Underlying 3 mm thick subdural hematoma of the posterior f sergio measuring 2.3 cm AP dimension. No additional acute intracranial hemorrhage. No acute ischemic change, mass, mass effect, or midline shift. No hydrocephalus. No effacement of cerebral sulci or basal subarachnoid cisterns. Weaver-white m atter differentiation is maintained. Mild bifrontal cerebral cortical atrophy. Rightward nasal septal deviation. Mastoid air cells and paranasal sinuses appear clear. No calvarial fracture. Cervical spine: Very low lung volumes. The right hemidiaphragm is seen at the mid lung level. No craniocervical junction abnormally, predental space widening, or prevertebral soft tissue swelling . Degenerative changes at the C1 dens articulation. Mild degenerative disc disease C5-C6 and C6-C7. Disc osteophyte complex here may cause mild spinal ca nal stenosis at C6-C7. Scattered facet arthropathy without significant neuroforaminal stenosis. No acute fracture of the cervical spine. Alignment is maintained though there is reversal of the norm al cervical lordosis. Sagittal and coronal reformatted images confirm above findings. COMBINED IMPRESSION: 1. Left posterior scalp contusion. Exam positive for an underlying 3 mm thick acute subdural hematoma of the posterior falx measuring 2.3 cm AP dimension. No mass effect or midline shift. 2. No acute fracture or malalignment of the cervical spine. Mild spondylotic change lower cervical sp ine. 3. Marked hypoventilatory changes in the visualized upper lungs. Critical findings called to Bryanna MISHRA in the ER at 4:12 PM.
[2019-11-14 16:23] LABS: Platelet Count 63 k/uL (150-450)
[2019-11-14] MEDS ORDERED: TRIMETHOBENZAMIDE 300 MG CAP PO STA (16:40)
== END 2019-11-14 18:08 | disposition other institution (70) ==
LOC: EC 13:45
DX: S06.5X9A Traumatic subdural hemorrhage with loss of consciousness of unspecified duration, initial encounter (principal); D70.9 Neutropenia, unspecified; D50.9 Iron deficiency anemia, unspecified; R74.0 Nonspecific elevation of levels of transaminase and lactic acid dehydrogenase [LDH]; E11.9 Type 2 diabetes mellitus without complications; I10 Essential (primary) hypertension; F31.9 Bipolar disorder, unspecified; Z79.899 Other long term (current) drug therapy; Z87.891 Personal history of nicotine dependence; Z88.0 Allergy status to penicillin; Z88.1 Allergy status to other antibiotic agents; Z88.2 Allergy status to sulfonamides; Z88.5 Allergy status to narcotic agent
CPT/HCPCS: 36415; 70450; 72125; 80053; 83605; 83735; 84100; 84484; 85025; 93005; 96360; 99285

== ENCOUNTER 2019-12-11 21:59 | Observation (INO) | payer MEDICARE, OTHER ==
--- NOTE | 2019-12-11 22:26 | ED ---
Abdominal Pain HPI - General Chief Complaint: Abdominal Pain Stated Complaint: Abdominal pain Time Seen by Provider: 12/11/19 22:13 Source: patient, EMS, RN notes reviewed Mode of arrival: EMS Limitations: physical limitation - History of Present Illness Initial Comments: Nora is a 49-year-old female who presents to the ER today via ambulance from metal lodged for evaluation of abdominal distention. Patient has a history of nonalcoholic fatty liver disease resulting in ascites. She reports she was last tapped in early September and is scheduled to have a paracentesis at the end of December. She states that over the past couple days she's noticed that her abdomen is more distended she can't take a deep breath causing her significant discomfort is no tenderness to palpation and no fevers. [facility]. - Related Data Home Medications Medication Instructions Recorded Confirmed Sertraline [Zoloft] 200 mg PO DAILY 09/02/14 11/14/19 Zolpidem [Ambien] 10 mg PO HS 09/02/14 11/14/19 LORazepam [Ativan] 1 mg PO DAILY PRN 02/04/18 11/14/19 ARIPiprazole [Abilify] 20 mg PO DAILY 09/13/18 11/14/19 lamoTRIgine [LaMICtal] 25 mg PO BID 08/23/19 11/14/19 Potassium Gluconate 99 mg PO DAILY 10/31/19 11/14/19 traZODone HCL 200 mg PO HS 10/31/19 11/14/19 Spironolactone 50 mg PO DAILY 11/14/19 11/14/19 Previous Rx's Medication Instructions Recorded Furosemide [Lasix] 40 mg PO BID #60 tab 09/07/19 Pantoprazole [Protonix] 40 mg PO AC-BID #60 tablet. 09/09/19 Allergies Allergy/AdvReac Type Severity Reaction Status Date / Time Penicillins Allergy Rash/Hives Verified 12/11/19 22:09 Sulfa (Sulfonamide Allergy Rash/Hives Verified 12/11/19 22:09 Antibiotics) erythromycin base AdvReac Abdominal Verified 12/11/19 22:09 Pain meperidine HCl [From Demerol] AdvReac Confusion/N Verified 12/11/19 22:09 ausea Review of Systems ROS Statement: Those systems with pertinent positive or pertinent negative responses have been documented in the HPI. ROS Other: All systems not noted in ROS Statement are negative. Past Medical History Past Medical History: Diabetes Mellitus, Hyperlipidemia, Hypertension, Liver Disease Additional Past Medical History / Comment(s): mph 1 week ago for ascites, Fatty non alcholic liver disease. History of Any Multi-Drug Resistant Organisms: MRSA, VRE Date of last positivie culture/infection: 09/17/18 VRE 01/2010 MRSA MDRO Source:: VRE URINE/ MRSA ABDOMEN Past Surgical History: Section, Hysterectomy Additional Past Surgical History / Comment(s): ophrarectomy Past Anesthesia/Blood Transfusion Reactions: No Reported Reaction Past Psychological History: Bipolar, Depression Smoking Status: Former smoker Past Alcohol Use History: None Reported Past Drug Use History: None Reported - Past Family History Father Family Medical History: COPD, Hyperlipidemia, Hypertension, Renal Disease Mother Family Medical History: Hyperlipidemia, Hypertension General Exam - General Exam Comments Initial Comments: Physical Exam GENERAL: Chronically ill-appearing female, appears much older than stated age HENT: Normocephalic, Atraumatic. EYES: PERRL, EOMI PULMONARY: Shallow respirations due to limited diaphragmatic excursion CARDIOVASCULAR: RRR Warm and well perfused extremities ABDOMEN: Obese, mildly distended, palpable fluid wave SKIN: pale, bruises easily : Deferred NEUROLOGIC: Alert and oriented Normal speech MUSCULOSKELETAL: Moving all extremities with no apparent injury PSYCHIATRIC: No SI/HI Limitations: physical limitation Course Vital Signs 12/11/19 22:04 Temperature 98.2 F Pulse Rate 105 H Respiratory 18 Rate Blood Pressure 129/78 O2 Sat by Pulse 93 L Oximetry Medical Decision Making - Medical Decision Making The patient was seen and evaluated history is obtained from the patient and review of medical record 49-year-old female with abdominal distention reports a 6 inch circumferential increase over the past 6 days per measurements made of metal lodged Labs and ultrasound were ordered Labs are consistent with patient's chronic illness she has pancytopenia, mildly elevated INR, mildly elevated transaminases and bilirubin these all seem to be chronic for the patient no acute abnormalities noted Patient was typed and screen should she need platelets however plate is are greater than 50 so I will defer to GI to make that recommendation Patient to be placed in observation unit with consult to GI for paracentesis - Lab Data Result diagrams: 12/11/19 22:31 12/11/19 22:31 Lab Results 12/11/19 12/11/19 12/11/19 Range/Units 22:31 22:31 22:31 WBC 3.1 L (3.8-10.6) k/uL RBC 3.73 L (3.80-5.40) m/uL Hgb 9.4 L (11.4-16.0) gm/dL Hct 31.0 L (34.0-46.0) % MCV 83.0 (80.0-100.0) fL MCH 25.3 (25.0-35.0) pg MCHC 30.4 L (31.0-37.0) g/dL RDW 22.1 H (11.5-15.5) % Plt Count 62 L (150-450) k/uL Neutrophils % 73 % Lymphocytes % 16 % Monocytes % 8 % Eosinophils % 1 % Basophils % 1 % Neutrophils # 2.3 (1.3-7.7) k/uL Lymphocytes # 0.5 L (1.0-4.8) k/uL Monocytes # 0.2 (0-1.0) k/uL Eosinophils # 0.0 (0-0.7) k/uL Basophils # 0.0 (0-0.2) k/uL Manual Slide Review Performed Hypochromasia Moderate Anisocytosis Moderate Microcytosis Slight PT 13.0 H (9.0-12.0) sec INR 1.3 H (<1.2) APTT 26.0 (22.0-30.0) sec Sodium 135 L (137-145) mmol/L Potassium 3.6 (3.5-5.1) mmol/L Chloride 101 (98-107) mmol/L Carbon Dioxide 29 (22-30) mmol/L Anion Gap 5 mmol/L BUN 15 (7-17) mg/dL Creatinine 0.62 (0.52-1.04) mg/dL Est GFR (CKD-EPI)AfAm >90 (>60 ml/min/1.73 sqM) Est GFR (CKD-EPI)NonAf >90 (>60 ml/min/1.73 sqM) Glucose 201 H (74-99) mg/dL Plasma Lactic Acid Mehul (0.7-2.0) mmol/L Calcium 8.0 L (8.4-10.2) mg/dL Total Bilirubin 1.6 H (0.2-1.3) mg/dL AST 50 H (14-36) U/L ALT 21 (4-34) U/L Alkaline Phosphatase 216 H (38-126) U/L Total Protein 7.2 (6.3-8.2) g/dL Albumin 2.5 L (3.5-5.0) g/dL Lipase 379 H (23-300) U/L 12/11/19 Range/Units 22:31 WBC (3.8-10.6) k/uL RBC (3.80-5.40) m/uL Hgb (11.4-16.0) gm/dL Hct (34.0-46.0) % MCV (80.0-100.0) fL MCH (25.0-35.0) pg MCHC (31.0-37.0) g/dL RDW (11.5-15.5) % Plt Count (150-450) k/uL Neutrophils % % Lymphocytes % % Monocytes % % Eosinophils % % Basophils % % Neutrophils # (1.3-7.7) k/uL Lymphocytes # (1.0-4.8) k/uL Monocytes # (0-1.0) k/uL Eosinophils # (0-0.7) k/uL Basophils # (0-0.2) k/uL Manual Slide Review Hypochromasia Anisocytosis Microcytosis PT (9.0-12.0) sec INR (<1.2) APTT (22.0-30.0) sec Sodium (137-145) mmol/L Potassium (3.5-5.1) mmol/L Chloride (98-107) mmol/L Carbon Dioxide (22-30) mmol/L Anion Gap mmol/L BUN (7-17) mg/dL Creatinine (0.52-1.04) mg/dL Est GFR (CKD-EPI)AfAm (>60 ml/min/1.73 sqM) Est GFR (CKD-EPI)NonAf (>60 ml/min/1.73 sqM) Glucose (74-99) mg/dL Plasma Lactic Acid Mehul 1.1 (0.7-2.0) mmol/L Calcium (8.4-10.2) mg/dL Total Bilirubin (0.2-1.3) mg/dL AST (14-36) U/L ALT (4-34) U/L Alkaline Phosphatase (38-126) U/L Total Protein (6.3-8.2) g/dL Albumin (3.5-5.0) g/dL Lipase (23-300) U/L Disposition Clinical Impression: Pancytopenia, Elevated liver enzymes, Ascites, Cirrhosis Disposition: ADMITTED IP TO THIS [facility] Condition: Stable Is patient prescribed a controlled substance at d/c from ED?: No Referrals: Dontae Medina DO [Primary Care Provider] - 1-2 days
[2019-12-11 23:04] LABS: ALT 21 U/L (4-34); AST 50 U/L (14-36); African American GFR (CKD) >90 (>60 ml/min/1.73 sqM); Albumin 2.5 g/dL (3.5-5.0); Alkaline Phosphatase 216 U/L (38-126); Anion Gap 5 mmol/L; Blood Urea Nitrogen 15 mg/dL (7-17); Carbon Dioxide 29 mmol/L (22-30); Chloride 101 mmol/L (98-107); Glucose 201 mg/dL (74-99); Non-African American GFR(CKD) >90 (>60 ml/min/1.73 sqM); Potassium 3.6 mmol/L (3.5-5.1); Sodium 135 mmol/L (137-145); Total Bilirubin 1.6 mg/dL (0.2-1.3); Total Protein 7.2 g/dL (6.3-8.2)
[2019-12-11 23:05] LABS: INR 1.3 (<1.2)
[2019-12-11 23:06] LABS: Anisocytosis Moderate; Basophils % (A) 1 %; Eosinophils % (A) 1 %; HGB 9.4 gm/dL (11.4-16.0); Hypochromasia Moderate; Lymphocytes # (A) 0.5 k/uL (1.0-4.8); Lymphocytes % (A) 16 %; MCH 25.3 pg (25.0-35.0); MCHC 30.4 g/dL (31.0-37.0); Mean Platelet Volume 7.9; Microcytosis Slight; Monocytes # (A) 0.2 k/uL (0-1.0); Monocytes % (A) 8 %; Neutrophils # (A) 2.3 k/uL (1.3-7.7); Neutrophils % (A) 73 %; RBC 3.73 m/uL (3.80-5.40); RDW 22.1 % (11.5-15.5); WBC 3.1 k/uL (3.8-10.6)
--- NOTE | 2019-12-11 23:09 | US ---
EXAMINATION TYPE: US abdomen limited DATE OF EXAM: 12/11/2019 COMPARISON: US 2019 CLINICAL HISTORY: ascities. Ascites check Ascites seen within all 4 quadrants IMPRESSION: There is moderate abdominal ascites demonstrated.
[2019-12-11 23:13] LABS: Platelet Count 62 k/uL (150-450)
[2019-12-11] MEDS ORDERED: NALOXONE 0.4 MG/ML 1 ML VIAL IV PRN (23:14)
[2019-12-11] MEDS ORDERED: LORazepam 1 MG TAB PO PRN (23:17)
[2019-12-12] MEDS: traZODone HCL 100 MG TAB PO SCH ×2 (00:17→20:44)
[2019-12-12] MEDS: ZOLPIDEM 5 MG TAB PO SCH ×2 (00:17→20:44)
[2019-12-12 04:41] LABS: Color,Urine Amber; Mucus,Urine Many /hpf; RBC,Urine 1 /hpf (0-5); Squamous Epithelial Cell,Urine 20 /hpf (0-4); WBC,Urine 3 /hpf (0-5)
[2019-12-12 04:42] LABS: Appearance,Urine Cloudy (Clear); Glucose,Urine (UA) Negative (Negative); Ketones,Urine Negative (Negative); Protein,Urine 1+ (Negative); Specific Gravity,Urine 1.025 (1.001-1.035)
[2019-12-12 04:43] LABS: Bilirubin,Urine 1+ (Negative); Blood,Urine Negative (Negative); Leukocyte Esterase,Urine Negative (Negative); Nitrite,Urine Negative (Negative)
[2019-12-12 07:11] LABS: Glucose,Whole Blood 143 mg/dL (75-99)
[2019-12-12] MEDS: INSULIN ASPART (NovoLOG) 100 UNIT/ML VIAL SQ SCH ×4 (07:16→20:43)
[2019-12-12] MEDS: FUROSEMIDE 40 MG TAB PO SCH ×2 (07:55→20:43)
[2019-12-12] MEDS: SERTRALINE 100 MG TAB PO SCH (07:55)
[2019-12-12] MEDS: PANTOPRAZOLE 40 MG TABLET PO SCH ×2 (07:55→17:56)
[2019-12-12] MEDS: lamoTRIgine 25 MG TAB PO SCH ×2 (07:55→20:44)
[2019-12-12] MEDS ORDERED: SPIRONOLACTONE 25 MG TAB PO SCH (09:00)
[2019-12-12 09:51] LABS: Anisocytosis Moderate; HCT 29.1 % (34.0-46.0); HGB 8.8 gm/dL (11.4-16.0); Hypochromasia Marked; MCH 25.4 pg (25.0-35.0); MCHC 30.4 g/dL (31.0-37.0); MCV 83.7 fL (80.0-100.0); Mean Platelet Volume 7.9; Microcytosis Slight; RBC 3.48 m/uL (3.80-5.40); RDW 22.4 % (11.5-15.5); WBC 2.9 k/uL (3.8-10.6)
[2019-12-12 09:52] LABS: Platelet Count 49 k/uL (150-450)
[2019-12-12 10:07] LABS: ALT 21 U/L (4-34); AST 46 U/L (14-36); African American GFR (CKD) >90 (>60 ml/min/1.73 sqM); Albumin 2.5 g/dL (3.5-5.0); Alkaline Phosphatase 200 U/L (38-126); Anion Gap 5 mmol/L; Blood Urea Nitrogen 17 mg/dL (7-17); Calcium 7.7 mg/dL (8.4-10.2); Carbon Dioxide 29 mmol/L (22-30); Chloride 102 mmol/L (98-107); Glucose 134 mg/dL (74-99); Non-African American GFR(CKD) >90 (>60 ml/min/1.73 sqM); Potassium 3.5 mmol/L (3.5-5.1); Sodium 136 mmol/L (137-145); Total Bilirubin 1.9 mg/dL (0.2-1.3); Total Protein 7.2 g/dL (6.3-8.2)
[2019-12-12 11:42] LABS: Glucose,Whole Blood 146 mg/dL (75-99)
--- NOTE | 2019-12-12 14:55 | US ---
EXAMINATION TYPE: US paracentesis abd w/image DATE OF EXAM: 12/12/2019 CLINICAL HISTORY: Ascites. Fever. SUPERVISOR DENTURE DEPARTMENT: Dr. Chelsea Keenan Preprocedure preliminary ultrasound imaging demonstrated large volume ascites. The procedure was discussed with the patient. The risks, complications, benefits, and alternatives we re discussed and any questions were answered. Informed consent was obtained. The patient was placed s upine on the ultrasound table and prepped and draped in the usual sterile fashion. All elements of maximal barrier technique were utilized. Under ultrasound guidance, access into the left lower quadrant was obtained with a 5 Arabic one-step centesis catheter. Approximately 7.8 liters of clear serous fluid was removed. Catheter was removed and sterile bandage was applied. The patient was stable throughout the procedure and remained stable upon discharge from Department of Radiology. IMPRESSION: Successful ultrasound-guided diagnostic and therapeutic paracentesis, with removal of 7.8 liters of c lear serous fluid.
--- NOTE | 2019-12-12 16:54 | P.HPIM ---
History of Present Illness 49-year-old female came in because of significant abdominal discomfort because of abdominal distention patient had scheduled paracentesis and by the end of December but the patient was having abdominal discomfort because of significant ascites. Patient doesn't have any evidence of on his baclofen or tinnitus. Patient will undergo paracentesis today after that patient probably can be discharged home. Patient denied any fever chills patient and nausea vomiting. Patient was comparing of some shortness of breath because of abdominal distention. 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 Review of Systems REVIEW OF SYSTEMS: CONSTITUTIONAL: No fever, no malaise, no fatigue. HEENT: No recent visual problems or hearing problems. Denied any sore throat. CARDIOVASCULAR: No chest pain, orthopnea, PND, no palpitations, no syncope. PULMONARY: No shortness of breath, no cough, no hemoptysis. GASTROINTESTINAL: As mentioned in HPI NEUROLOGICAL: No headaches, no weakness, no numbness. HEMATOLOGICAL: Denies any bleeding or petechiae. GENITOURINARY: Denies any burning micturition, frequency, or urgency. MUSCULOSKELETAL/RHEUMATOLOGICAL: Denies any joint pain, swelling, or any muscle pain. ENDOCRINE: Denies any polyuria or polydipsia. The rest of the 14-point review of systems is negative. Past Medical History Past Medical History: Diabetes Mellitus, Hyperlipidemia, Hypertension, Liver Disease Additional Past Medical History / Comment(s): Fatty non alcholic liver disease - comes in for paracentesis often History of Any Multi-Drug Resistant Organisms: MRSA, VRE Date of last positivie culture/infection: 09/17/18 VRE 01/2010 MRSA MDRO Source:: VRE URINE/ MRSA ABDOMEN Past Surgical History: Section, Hysterectomy Additional Past Surgical History / Comment(s): Oophrarectomy Past Anesthesia/Blood Transfusion Reactions: No Reported Reaction Past Psychological History: Bipolar, Depression Smoking Status: Never smoker Past Alcohol Use History: None Reported Past Drug Use History: None Reported - Past Family History Father Family Medical History: COPD, Hyperlipidemia, Hypertension, Renal Disease Mother Family Medical History: Hyperlipidemia, Hypertension Medications and Allergies Home Medications Medication Instructions Recorded Confirmed Type Sertraline [Zoloft] 200 mg PO DAILY 09/02/14 12/12/19 History Zolpidem [Ambien] 10 mg PO HS 09/02/14 12/12/19 History LORazepam [Ativan] 1 mg PO DAILY PRN 02/04/18 12/12/19 History ARIPiprazole [Abilify] 20 mg PO DAILY 09/13/18 12/12/19 History lamoTRIgine [LaMICtal] 25 mg PO BID 08/23/19 12/12/19 History Pantoprazole [Protonix] 40 mg PO AC-BID #60 tablet. 09/09/19 12/12/19 Rx traZODone HCL 200 mg PO HS 10/31/19 12/12/19 History Spironolactone 50 mg PO DAILY 11/14/19 12/12/19 History Acetaminophen Tab [Tylenol] 650 mg PO Q12H PRN 12/12/19 12/12/19 History Folic Acid 1 mg PO DAILY 12/12/19 12/12/19 History Furosemide [Lasix] 40 mg PO BID tab 12/12/19 Rx INSULIN LISPRO (humaLOG) [humaLOG] See Protocol SQ AC-TID 12/12/19 12/12/19 History Lactulose 20 gm PO DAILY 12/12/19 12/12/19 History Lidocaine 5% Patch [Lidoderm 5% 1 patch TOPICAL DAILY 12/12/19 12/12/19 History Patch] Nystatin 100,000 Unit/gm Powd 1 applic TOPICAL TID 12/12/19 12/12/19 History [Mycostatin Powder] Potassium Chloride ER [K-Dur 10] 10 meq PO BID #0 12/12/19 12/12/19 Rx Rifaximin [Xifaxan] 550 mg PO BID@0800,199912/12/19 12/12/19 History Allergies Allergy/AdvReac Type Severity Reaction Status Date / Time Penicillins Allergy Rash/Hives Verified 12/12/19 07:48 Sulfa (Sulfonamide Allergy Rash/Hives Verified 12/12/19 07:48 Antibiotics) erythromycin base AdvReac Abdominal Verified 12/12/19 07:48 Pain meperidine HCl [From Demerol] AdvReac Confusion/N Verified 12/12/19 07:48 ausea Physical Exam Vitals: Vital Signs Temp Pulse Pulse Resp BP BP Pulse Ox 12/12/19 15:25 99 119/71 93 L 12/12/19 15:15 105 H 118/71 92 L 12/12/19 15:00 105 H 127/73 93 L 12/12/19 14:45 108 H 130/73 96 12/12/19 14:30 98.6 F 96 111/71 100 12/12/19 13:53 105 H 28 H 119/68 98 12/12/19 13:33 105 H 18 115/70 97 12/12/19 13:13 104 H 18 118/73 97 12/12/19 12:52 109 H 18 127/69 98 12/12/19 12:10 112 H 18 122/75 94 L 12/12/19 07:55 91 L 12/12/19 07:00 99.1 F 111 H 18 132/69 89 L 12/12/19 00:00 98.7 F 104 H 22 134/79 93 L 12/11/19 22:04 98.2 F 105 H 18 129/78 93 L Intake and Output 12/12/19 12/12/19 12/12/19 06:59 14:59 22:59 Other: Voiding Method Toilet Toilet Bedside Commode Bedside Commode # Voids 1 1 # Bowel Movements 1 Weight 111.402 kg PHYSICAL EXAMINATION: GENERAL: The patient is alert and oriented x3, not in any acute distress. Obese HEENT: Pupils are round and equally reacting to light. EOMI. No scleral icterus. No conjunctival pallor. Normocephalic, atraumatic. No pharyngeal erythema. No thyromegaly. CARDIOVASCULAR: S1 and S2 present. No murmurs, rubs, or gallops. PULMONARY: Chest is clear to auscultation, no wheezing or crackles. ABDOMEN: Soft, nontender, nondistended, normoactive bowel sounds. No palpable organomegaly. Patient doesn't have any abdominal distention as this exam was done after paracentesis MUSCULOSKELETAL: No joint swelling or deformity. EXTREMITIES: No cyanosis, clubbing, or pedal edema. NEUROLOGICAL: Gross neurological examination did not reveal any focal deficits. SKIN: No rashes. Results CBC & Chem 7: 12/12/19 09:16 12/12/19 09:16 Labs: Abnormal Lab Results - Last 24 Hours (Table) 12/11/19 12/11/19 12/11/19 Range/Units 22:31 22:31 22:31 WBC 3.1 L (3.8-10.6) k/uL RBC 3.73 L (3.80-5.40) m/uL Hgb 9.4 L (11.4-16.0) gm/dL Hct 31.0 L (34.0-46.0) % MCHC 30.4 L (31.0-37.0) g/dL RDW 22.1 H (11.5-15.5) % Plt Count 62 L (150-450) k/uL Lymphocytes # 0.5 L (1.0-4.8) k/uL PT 13.0 H (9.0-12.0) sec INR 1.3 H (<1.2) Sodium 135 L (137-145) mmol/L Glucose 201 H (74-99) mg/dL POC Glucose (mg/dL) (75-99) mg/dL Calcium 8.0 L (8.4-10.2) mg/dL Total Bilirubin 1.6 H (0.2-1.3) mg/dL AST 50 H (14-36) U/L Alkaline Phosphatase 216 H (38-126) U/L Albumin 2.5 L (3.5-5.0) g/dL Lipase 379 H (23-300) U/L Urine Appearance (Clear) Urine Protein (Negative) Urine Bilirubin (Negative) Ur Squamous Epith Cells (0-4) /hpf Urine Mucus (None) /hpf 12/12/19 12/12/19 12/12/19 Range/Units 04:13 07:09 09:16 WBC 2.9 L (3.8-10.6) k/uL RBC 3.48 L (3.80-5.40) m/uL Hgb 8.8 L (11.4-16.0) gm/dL Hct 29.1 L (34.0-46.0) % MCHC 30.4 L (31.0-37.0) g/dL RDW 22.4 H (11.5-15.5) % Plt Count 49 L (150-450) k/uL Lymphocytes # (1.0-4.8) k/uL PT (9.0-12.0) sec INR (<1.2) Sodium (137-145) mmol/L Glucose (74-99) mg/dL POC Glucose (mg/dL) 143 H (75-99) mg/dL Calcium (8.4-10.2) mg/dL Total Bilirubin (0.2-1.3) mg/dL AST (14-36) U/L Alkaline Phosphatase (38-126) U/L Albumin (3.5-5.0) g/dL Lipase (23-300) U/L Urine Appearance Cloudy H (Clear) Urine Protein 1+ H (Negative) Urine Bilirubin 1+ H (Negative) Ur Squamous Epith Cells 20 H (0-4) /hpf Urine Mucus Many H (None) /hpf 12/12/19 12/12/19 Range/Units 09:16 11:39 WBC (3.8-10.6) k/uL RBC (3.80-5.40) m/uL Hgb (11.4-16.0) gm/dL Hct (34.0-46.0) % MCHC (31.0-37.0) g/dL RDW (11.5-15.5) % Plt Count (150-450) k/uL Lymphocytes # (1.0-4.8) k/uL PT (9.0-12.0) sec INR (<1.2) Sodium 136 L (137-145) mmol/L Glucose 134 H (74-99) mg/dL POC Glucose (mg/dL) 146 H (75-99) mg/dL Calcium 7.7 L (8.4-10.2) mg/dL Total Bilirubin 1.9 H (0.2-1.3) mg/dL AST 46 H (14-36) U/L Alkaline Phosphatase 200 H (38-126) U/L Albumin 2.5 L (3.5-5.0) g/dL Lipase (23-300) U/L Urine Appearance (Clear) Urine Protein (Negative) Urine Bilirubin (Negative) Ur Squamous Epith Cells (0-4) /hpf Urine Mucus (None) /hpf Thrombosis Risk Factor Assmnt - Choose All That Apply Any of the Below Risk Factors Present?: Yes Each Factor Represents 1 point: Age 41-60 years, Obesity (BMI >25) Other Risk Factors: No Other congenital or acquired thrombophilia - If yes, enter type in comment: No Thrombosis Risk Factor Assessment Total Risk Factor Score: 2 Thrombosis Risk Factor Assessment Level: Low Risk Assessment and Plan Plan: -Abdominal discomfort and short of breath secondary to significant ascites, nonalcoholic state of hepatitis and cirrhosis: Patient did undergo paracentesis patient's Lasix dose will be increased and the potassium supplementation will be increased and will be discharged today although we are waiting on insurance prior authorization for her to be discharged to subacute rehab or prison. Patient will be continued on Aldactone. Low sodium diet. 7.8 L was removed from her abdomen -Pancytopenia secondary to cirrhosis and liver disease -Type 2 diabetes mellitus: This is as per her history although patient is not in any medications for this and patient blood sugars are fairly well controlled -Hypertension
[2019-12-12 17:07] LABS: Glucose,Whole Blood 192 mg/dL (75-99)
--- NOTE | 2019-12-12 17:13 | P.DS ---
Providers Date of admission: 12/11/19 23:17 Attending physician: Constantino Obando Consults: 12/11/19 23:15 Consult Physician Urgent Consulting Provider: Nate Read Consult Reason/Comments: ascities, needs paracentesis Do you want consulting provider notified?: Yes, Notify in am Primary care physician: [facility] Course: Refer to history of present illness for further details Patient Condition at Discharge: Stable Plan - Discharge Summary Discharge Rx Participant: No New Discharge Prescriptions: New Furosemide [Lasix] 40 mg PO BID tab Continue Zolpidem [Ambien] 10 mg PO HS Sertraline [Zoloft] 200 mg PO DAILY LORazepam [Ativan] 1 mg PO DAILY PRN PRN Reason: Anxiety ARIPiprazole [Abilify] 20 mg PO DAILY lamoTRIgine [LaMICtal] 25 mg PO BID Pantoprazole [Protonix] 40 mg PO AC-BID #60 tablet. traZODone HCL 200 mg PO HS Spironolactone 50 mg PO DAILY Acetaminophen Tab [Tylenol] 650 mg PO Q12H PRN PRN Reason: Pain Nystatin 100,000 Unit/gm Powd [Mycostatin Powder] 1 applic TOPICAL TID INSULIN LISPRO (humaLOG) [humaLOG] See Protocol SQ AC-TID Rifaximin [Xifaxan] 550 mg PO BID@0800,2000 Lidocaine 5% Patch [Lidoderm 5% Patch] 1 patch TOPICAL DAILY Lactulose 20 gm PO DAILY Folic Acid 1 mg PO DAILY Changed Potassium Chloride ER [K-Dur 10] 10 meq PO BID #0 Discontinued Furosemide [Lasix] 40 mg PO DAILY Discharge Medication List Sertraline [Zoloft] 200 mg PO DAILY 09/02/14 [History] Zolpidem [Ambien] 10 mg PO HS 09/02/14 [History] LORazepam [Ativan] 1 mg PO DAILY PRN 02/04/18 [History] ARIPiprazole [Abilify] 20 mg PO DAILY 09/13/18 [History] lamoTRIgine [LaMICtal] 25 mg PO BID 08/23/19 [History] Pantoprazole [Protonix] 40 mg PO AC-BID #60 tablet. 09/09/19 [Rx] traZODone HCL 200 mg PO HS 10/31/19 [History] Spironolactone 50 mg PO DAILY 11/14/19 [History] Acetaminophen Tab [Tylenol] 650 mg PO Q12H PRN 12/12/19 [History] Folic Acid 1 mg PO DAILY 12/12/19 [History] Furosemide [Lasix] 40 mg PO BID tab 12/12/19 [Rx] INSULIN LISPRO (humaLOG) [humaLOG] See Protocol SQ AC-TID 12/12/19 [History] Lactulose 20 gm PO DAILY 12/12/19 [History] Lidocaine 5% Patch [Lidoderm 5% Patch] 1 patch TOPICAL DAILY 12/12/19 [History] Nystatin 100,000 Unit/gm Powd [Mycostatin Powder] 1 applic TOPICAL TID 12/12/19 [History] Potassium Chloride ER [K-Dur 10] 10 meq PO BID #0 12/12/19 [Rx] Rifaximin [Xifaxan] 550 mg PO BID@0800,2000 12/12/19 [History] Follow up Appointment(s)/Referral(s): Dontae Medina DO [Primary Care Provider] - 1-2 days (will call you with an appointment date and time) Patient Instructions/Handouts: Ascites (DC) Discharge Disposition: TRANSFER TO SNF/ECF
[2019-12-12 20:07] LABS: Appearance,BF Hazy; Color,BF Yellow; Nucleated Cells, Body Fluid 10 /uL; RBC, Body Fluid 136 /uL
[2019-12-12 20:25] LABS: Glucose,Whole Blood 182 mg/dL (75-99)
[2019-12-12] MEDS: SPIRONOLACTONE 25 MG TAB PO SCH (20:44)
[2019-12-12] MEDS: KETOROLAC 15 MG/ML 1 ML VIAL IVP PRN (20:45)
--- NOTE | 2019-12-13 00:29 | CONS ---
CONSULTATION DATE OF DICTATION: 12/12/2019 REASON FOR CONSULTATION: Ascites and abdominal distention. HISTORY OF PRESENT ILLNESS: The patient is a 49-year-old pleasant white female diagnosed with nonalcoholic cirrhosis of the liver a year ago. She follows with Dr. Read on an outpatient basis. However, she has missed a couple of appointments. She was complaining of abdominal distention and hence came into the emergency room and subsequently admitted to the hospital for further evaluation. She underwent large-volume paracentesis yesterday and 7.8 L of fluid was removed and she is feeling much better. She reports no abdominal pain. No nausea, no vomiting. She takes on an outpatient basis but does not recall the strength of the medications. PAST MEDICAL HISTORY: Her past medical history is significant for diabetes mellitus, hypertension, hyperlipidemia, fatty liver disease diagnosed in the past but diagnosed with non- alcoholic cirrhosis of the liver a year ago. Recurrent ascites requiring large-volume paracentesis on 4 different occasions in the last one year. PAST SURGICAL HISTORY: , hysterectomy and oophorectomy. SOCIAL HISTORY: No smoking. No alcohol use. FAMILY HISTORY: Father had hypertension hyperlipidemia and diabetes mellitus. Mother had hypertension and hyperlipidemia. MEDICATIONS: Medications at home include Zoloft, Ambien, Ativan, Abilify, Lamictal, Protonix, trazodone, Aldactone, Tylenol, folic acid, Lasix Humalog, nystatin, Xifaxan, and potassium chloride. ALLERGIES: PENICILLIN, SULFA, ERYTHROMYCIN and DEMEROL. REVIEW OF SYSTEMS: CARDIOPULMONARY: She denies any chest pain or shortness of breath. GENITOURINARY: No dysuria or hematuria. MUSCULOSKELETAL: Unremarkable. SKIN: Unremarkable. ENDOCRINE: Unremarkable other than diabetes mellitus. NEUROLOGY: Unremarkable. ENT/VISION: Unremarkable. PSYCHIATRIC: History of anxiety. CONSTITUTIONAL: No recent weight loss. No fever, chills, night sweats. PHYSICAL EXAMINATION: She appears comfortable. No apparent distress. Vital signs are stable. Blood pressure is 119/71, pulse rate 97, temperature 98.2. HEENT EXAMINATION: Unremarkable. Conjunctivae pink. Sclerae anicteric. Oral cavity no lesions. NECK: No JVD or lymph node enlargement. CHEST: Clear to auscultation. ABDOMEN: Obese. Bowel sounds are positive. No organomegaly. EXTREMITIES: No pedal edema. SKIN: No rashes. NEUROLOGIC: Alert and oriented x3. No focal deficits. LABS: WBC 3.1, hemoglobin 9.4, platelets are 62,000. Basic metabolic panel is within normal limits. BUN and creatinine are 15 and 0.6 respectively. T bilirubin 1.6, AST 50, ALT 21, alkaline phosphatase 216. IMPRESSION: 1. Abdominal distention secondary to ascites, status post large-volume paracentesis and 7.8 L of fluid was removed. Patient currently on Lasix 40 mg twice daily and Aldactone 25 mg daily. 2. Nonalcoholic cirrhosis of the liver with gradual decompensation. 3. History of diabetes mellitus, hypertension and hyperlipidemia. 4. History of hepatic encephalopathy, maintained on lactulose and Xifaxan. RECOMMENDATIONS: 1. Continue with Lasix 40 mg twice daily. 2. Increase Aldactone to 50 mg twice daily. 3. Low-salt diet. 4. Continue with lactulose and Xifaxan. 5. The patient can be discharged home today with an outpatient followup with Dr. Read in 2 weeks. Thank you for this consultation. MMODL / IJN: [id number] /
[2019-12-13 01:00] LABS: Total Protein, Body Fluid 690 mg/dL
[2019-12-13 05:15] LABS: Albumin, Fluid Source Paracentesis Fluid
[2019-12-13 07:08] LABS: Glucose,Whole Blood 111 mg/dL (75-99)
[2019-12-13] MEDS: INSULIN ASPART (NovoLOG) 100 UNIT/ML VIAL SQ SCH ×3 (07:18→16:53)
[2019-12-13] MEDS: KETOROLAC 15 MG/ML 1 ML VIAL IVP PRN ×2 (07:36→12:34)
[2019-12-13 07:40] VITALS: TEMP 98.1
[2019-12-13] MEDS: SERTRALINE 100 MG TAB PO SCH (08:13)
[2019-12-13] MEDS: SPIRONOLACTONE 25 MG TAB PO SCH (08:13)
[2019-12-13] MEDS: FUROSEMIDE 40 MG TAB PO SCH (08:13)
[2019-12-13] MEDS: PANTOPRAZOLE 40 MG TABLET PO SCH ×2 (08:13→16:53)
[2019-12-13] MEDS: lamoTRIgine 25 MG TAB PO SCH (08:14)
[2019-12-13 11:28] LABS: Glucose,Whole Blood 138 mg/dL (75-99)
[2019-12-13 14:22] VITALS: BP 95/58; PULSE 98; RESP 17
--- NOTE | 2019-12-13 14:47 | P.DS ---
Providers Date of admission: 12/11/19 23:17 Attending physician: Constantino Obando Consults: 12/11/19 23:15 Consult Physician Urgent Consulting Provider: Nate Read Consult Reason/Comments: ascities, needs paracentesis Do you want consulting provider notified?: Yes, Notify in am Primary care physician: [facility] Course: 49-year-old female came in because of significant abdominal discomfort because of abdominal distention patient had scheduled paracentesis and by the end of December but the patient was having abdominal discomfort because of significant ascites. Patient doesn't have any evidence of on his baclofen or tinnitus. Patient will undergo paracentesis today after that patient probably can be discharged home. Patient denied any fever chills patient and nausea vomiting. Patient was comparing of some shortness of breath because of abdominal distention. 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 12/13/2019 No overnight events patient is awaiting disposition to subacute rehabilitation once they get insurance authorization. Constitutional: Denied any fatigue denied any fever. Cardio vascular: denied any chest pain, palpitations Gastrointestinal denied any nausea vomiting Pulmonary: Denied any shortness of breath cough Neurologic denied any new focal deficits All inpatient medications were reviewed and appropriate changes in these medications as dictated in the interval history and assessment and plan. PHYSICAL EXAMINATION: GENERAL: The patient is alert and oriented x3, not in any acute distress. Obese HEENT: Pupils are round and equally reacting to light. EOMI. No scleral icterus. No conjunctival pallor. Normocephalic, atraumatic. No pharyngeal erythema. No thyromegaly. CARDIOVASCULAR: S1 and S2 present. No murmurs, rubs, or gallops. PULMONARY: Chest is clear to auscultation, no wheezing or crackles. ABDOMEN: Soft, nontender, nondistended, normoactive bowel sounds. No palpable organomegaly. Patient doesn't have any abdominal distention as this exam was done after paracentesis MUSCULOSKELETAL: No joint swelling or deformity. EXTREMITIES: No cyanosis, clubbing, or pedal edema. NEUROLOGICAL: Gross neurological examination did not reveal any focal deficits. SKIN: No rashes. Assessment and Plan Plan: -Abdominal discomfort and short of breath secondary to significant ascites, nonalcoholic state of hepatitis and cirrhosis: Patient did undergo paracentesis patient's Lasix dose will be increased and the potassium supplementation will be increased and will be discharged today although we are waiting on insurance prior authorization for her to be discharged to subacute rehab or skilled nursing. Patient will be continued on Aldactone. Low sodium diet. 7.8 L was removed from her abdomen -Pancytopenia secondary to cirrhosis and liver disease -Type 2 diabetes mellitus: This is as per her history although patient is not in any medications for this and patient blood sugars are fairly well controlled -Hypertension Patient Condition at Discharge: Stable Plan - Discharge Summary Discharge Rx Participant: No New Discharge Prescriptions: New Furosemide [Lasix] 40 mg PO BID tab Continue Zolpidem [Ambien] 10 mg PO HS Sertraline [Zoloft] 200 mg PO DAILY LORazepam [Ativan] 1 mg PO DAILY PRN PRN Reason: Anxiety ARIPiprazole [Abilify] 20 mg PO DAILY lamoTRIgine [LaMICtal] 25 mg PO BID Pantoprazole [Protonix] 40 mg PO AC-BID #60 tablet. traZODone HCL 200 mg PO HS Spironolactone 50 mg PO DAILY Acetaminophen Tab [Tylenol] 650 mg PO Q12H PRN PRN Reason: Pain Nystatin 100,000 Unit/gm Powd [Mycostatin Powder] 1 applic TOPICAL TID INSULIN LISPRO (humaLOG) [humaLOG] See Protocol SQ AC-TID Rifaximin [Xifaxan] 550 mg PO BID@0800,2000 Lidocaine 5% Patch [Lidoderm 5% Patch] 1 patch TOPICAL DAILY Lactulose 20 gm PO DAILY Folic Acid 1 mg PO DAILY Changed Potassium Chloride ER [K-Dur 10] 10 meq PO BID #0 Discontinued Furosemide [Lasix] 40 mg PO DAILY Discharge Medication List Sertraline [Zoloft] 200 mg PO DAILY 09/02/14 [History] Zolpidem [Ambien] 10 mg PO HS 09/02/14 [History] LORazepam [Ativan] 1 mg PO DAILY PRN 02/04/18 [History] ARIPiprazole [Abilify] 20 mg PO DAILY 09/13/18 [History] lamoTRIgine [LaMICtal] 25 mg PO BID 08/23/19 [History] Pantoprazole [Protonix] 40 mg PO AC-BID #60 tablet. 09/09/19 [Rx] traZODone HCL 200 mg PO HS 10/31/19 [History] Spironolactone 50 mg PO DAILY 11/14/19 [History] Acetaminophen Tab [Tylenol] 650 mg PO Q12H PRN 12/12/19 [History] Folic Acid 1 mg PO DAILY 12/12/19 [History] Furosemide [Lasix] 40 mg PO BID tab 12/12/19 [Rx] INSULIN LISPRO (humaLOG) [humaLOG] See Protocol SQ AC-TID 12/12/19 [History] Lactulose 20 gm PO DAILY 12/12/19 [History] Lidocaine 5% Patch [Lidoderm 5% Patch] 1 patch TOPICAL DAILY 12/12/19 [History] Nystatin 100,000 Unit/gm Powd [Mycostatin Powder] 1 applic TOPICAL TID 12/12/19 [History] Potassium Chloride ER [K-Dur 10] 10 meq PO BID #0 12/12/19 [Rx] Rifaximin [Xifaxan] 550 mg PO BID@0800,2000 12/12/19 [History] Follow up Appointment(s)/Referral(s): Dontae Medina DO [Primary Care Provider] - 1-2 days (will call you with an appointment date and time) Nate Read MD [STAFF PHYSICIAN] - 12/15/19 10:30 am Patient Instructions/Handouts: Ascites (DC) Discharge Disposition: TRANSFER TO SNF/ECF
[2019-12-13 16:36] LABS: Glucose,Whole Blood 202 mg/dL (75-99)
--- NOTE | 2019-12-14 | PN ---
PROGRESS NOTE DATE OF DICTATION: 12/13/2019 The patient is a 49-year-old pleasant white female admitted to the hospital with ascites for which she underwent large-volume paracentesis yesterday and 7.8 L of fluid was removed. She is doing well. She wants to be discharged back to the senior living. She denies any symptoms. Remains on Lasix and Aldactone and tolerating diet well. PHYSICAL EXAMINATION: On physical examination appears comfortable, no apparent distress. Vital signs are stable. Blood pressure is 195/58, pulse rate 98, temperature 98.7. HEENT: Examination unremarkable. Conjunctivae pink. Sclerae anicteric. Oral cavity, no lesions. NECK: No JVD or lymph node enlargement. CHEST: Clear to auscultation. HEART: Regular rate and rhythm. ABDOMEN: Soft. It was nondistended, nontender. Bowel sounds are positive. EXTREMITIES: No pedal edema. NEUROLOGIC: Alert and oriented x3. No focal deficits. LABS: No labs from today. IMPRESSION: Non-alcoholic cirrhosis of the liver with portal hypertension and ascites, status post large-volume paracentesis and 8 L removed yesterday. Presently on Lasix 40 mg b.i.d. and Aldactone 50 mg b.i.d., doing well. RECOMMENDATIONS: 1. Continue with Lasix and Aldactone. 2. Low-salt diet. 3. Okay to discharge to the senior living. 4. Follow up with Dr. Read in 2 weeks. Thank you for this consultation. MMODL / IJN: [id number] /
== END 2019-12-13 17:43 ==
LOC: EC 21:59 → 4SSUR 23:17
PROVIDERS: ADMIT Hospitalist; ATTEND Hospitalist
DX: R18.8 Other ascites (principal); D61.818 Other pancytopenia; E11.9 Type 2 diabetes mellitus without complications; E78.5 Hyperlipidemia, unspecified; F32.9 Major depressive disorder, single episode, unspecified; I10 Essential (primary) hypertension; K74.60 Unspecified cirrhosis of liver; K75.81 Nonalcoholic steatohepatitis (NASH); K76.6 Portal hypertension; R79.1 Abnormal coagulation profile; Z79.899 Other long term (current) drug therapy; Z82.49 Family history of ischemic heart disease and other diseases of the circulatory system; Z82.5 Family history of asthma and other chronic lower respiratory diseases; Z83.3 Family history of diabetes mellitus; Z87.891 Personal history of nicotine dependence; Z90.710 Acquired absence of both cervix and uterus; Z88.1 Allergy status to other antibiotic agents; Z88.5 Allergy status to narcotic agent; Z88.0 Allergy status to penicillin; Z88.2 Allergy status to sulfonamides; Z86.14 Personal history of Methicillin resistant Staphylococcus aureus infection; E66.9 Obesity, unspecified
CPT/HCPCS: 99285; 36415; 97162; 97535; 97166; 86900; 86901; 88108; 88305; 80053 ×2; 82042; 89050; 83605; 83690; 85025; 85027; 85610; 85730; 86850; 81001; 87070; 87205; 87075; 84157; 76705; 49083; G0378 ×3; J1885 ×2

== ENCOUNTER 2020-01-05 14:47 | Observation (INO) | payer MEDICARE ==
--- NOTE | 2020-01-05 15:25 | ED ---
Abdominal Pain HPI <Zeeshan Hartley - Last Filed: 01/05/20 16:26> - General Source: EMS Mode of arrival: EMS Limitations: no limitations <SeverianoJacque mena - Last Filed: 01/05/20 17:32> - General Chief Complaint: Abdominal Pain Stated Complaint: ABD pain Time Seen by Provider: 01/05/20 15:08 - History of Present Illness Initial Comments: 49-year-old female presenting today for chief complaint of generalized weakness, abdominal pain distention need for paracentesis. Patient states that she struggles with on-and-off leg swelling she states has been increase she denies a chest pain or shortness of breath. She states that she needs a paracentesis at the fluid has been building up on her belly she states she has a standing order. Patient states she did present to the emergency department because she had difficulty ambulating at home and mother was not able to help he transfer to the toilet secondary to weakness. patient denies bloody stools, melena, denies vomiting. Denies headahces, or visual changes. Denies localized weakness, stating it is all over. Denies additional complaints. Upon arrival patient appears well nontoxic in no acute distress. (Jacque Simms) - Related Data Home Medications Medication Instructions Recorded Confirmed Sertraline [Zoloft] 200 mg PO DAILY 09/02/14 01/05/20 ARIPiprazole [Abilify] 20 mg PO DAILY 09/13/18 01/05/20 lamoTRIgine [LaMICtal] 25 mg PO BID 08/23/19 01/05/20 traZODone HCL 200 mg PO HS 10/31/19 01/05/20 Spironolactone 50 mg PO DAILY 11/14/19 01/05/20 Acetaminophen Tab [Tylenol] 650 mg PO Q12H PRN 12/12/19 01/05/20 Folic Acid 1 mg PO DAILY 12/12/19 01/05/20 INSULIN LISPRO (humaLOG) [humaLOG] See Protocol SQ AC-TID 12/12/19 01/05/20 Lactulose 20 gm PO DAILY 12/12/19 01/05/20 Lidocaine 5% Patch [Lidoderm 5% 1 patch TOPICAL DAILY 12/12/19 01/05/20 Patch] Nystatin 100,000 Unit/gm Powd 1 applic TOPICAL TID 12/12/19 01/05/20 [Mycostatin Powder] Rifaximin [Xifaxan] 550 mg PO BID@0800,199912/12/19 01/05/20 Previous Rx's Medication Instructions Recorded Pantoprazole [Protonix] 40 mg PO AC-BID #60 tablet. 09/09/19 Furosemide [Lasix] 40 mg PO BID tab 12/12/19 Potassium Chloride ER [K-Dur 10] 10 meq PO BID #0 12/12/19 LORazepam [Ativan] 1 mg PO DAILY PRN #5 tab 12/13/19 Zolpidem [Ambien] 10 mg PO HS #5 tab 12/13/19 Allergies Allergy/AdvReac Type Severity Reaction Status Date / Time Penicillins Allergy Rash/Hives Verified 01/05/20 16:01 Sulfa (Sulfonamide Allergy Rash/Hives Verified 01/05/20 16:01 Antibiotics) erythromycin base AdvReac Abdominal Verified 01/05/20 16:01 Pain meperidine HCl [From Demerol] AdvReac Confusion/N Verified 01/05/20 16:01 ausea Review of Systems ROS Other: All systems not noted in ROS Statement are negative. <Zeeshan Hartley - Last Filed: 01/05/20 16:26> ROS Other: All systems not noted in ROS Statement are negative. <Jacque Simms - Last Filed: 01/05/20 17:32> ROS Statement: Those systems with pertinent positive or pertinent negative responses have been documented in the HPI. Past Medical History Past Medical History: Diabetes Mellitus, Hyperlipidemia, Hypertension, Liver Disease Additional Past Medical History / Comment(s): Fatty non alcholic liver disease - comes in for paracentesis often History of Any Multi-Drug Resistant Organisms: MRSA, VRE Date of last positivie culture/infection: 09/17/18 VRE 01/2010 MRSA MDRO Source:: VRE URINE/ MRSA ABDOMEN Past Surgical History: Section, Hysterectomy Additional Past Surgical History / Comment(s): Oophrarectomy Past Anesthesia/Blood Transfusion Reactions: No Reported Reaction Past Psychological History: Bipolar, Depression Smoking Status: Never smoker Past Alcohol Use History: None Reported Past Drug Use History: None Reported - Past Family History Father Family Medical History: COPD, Hyperlipidemia, Hypertension, Renal Disease Mother Family Medical History: Hyperlipidemia, Hypertension <Jacque Simms - Last Filed: 01/05/20 17:32> General Exam Limitations: no limitations <Jacque Simms - Last Filed: 01/05/20 17:32> - General Exam Comments Initial Comments: General: The patient is awake and alert, in no distress Eye: +3 mm pupils are equal, round and reactive to light, extra-ocular movements are intact. No nystagmus. There is normal conjunctiva bilaterally. No signs of icterus. Ears, nose, mouth and throat: There are moist mucous membranes and no oral lesions. Neck: The neck is supple, there is no tenderness or JVD. Cardiovascular: There is a regular rate and rhythm. No murmur, rub or gallop is appreciated. Respiratory: Lungs are clear to auscultation, respirations are non-labored, breath sounds are equal. No wheezes, stridor, rales, or rhonchi. Gastrointestinal: Distended diffusely tender abdomen, abdomen without masses. Enlarged liver appreciated. There is no rebound or guarding present. Musculoskeletal: Normal ROM, no tenderness. Strength 5/5. Sensation intact. Radial pulses equal bilaterally 2+. Neurological: A&O x 3. CN II-XII intact, There are no obvious motor or sensory deficits. Coordination appears grossly intact. Speech is normal. Skin: Skin is warm and dry and no rashes or lesions are noted. B/l LE edema. Psychiatric: Cooperative, appropriate mood & affect, normal judgment. (DemiJacque Gallegos) Course <Zeeshan Hartley - Last Filed: 01/05/20 16:26> Vital Signs 01/05/20 15:09 Temperature 97.5 F L Pulse Rate 104 H Respiratory 22 Rate Blood Pressure 129/62 O2 Sat by Pulse 96 Oximetry - Reevaluation(s) Reevaluation #1: 01/05/20 16:26 PA supervision: I personally evaluate this case patient has no complaints of abdominal pain and distention consistent with ascites. Patient will be admitted for interventional radiology and paracentesis performed tomorrow. (Zeeshan Hartley) Medical Decision Making - Lab Data Result diagrams: 01/05/20 15:18 01/05/20 15:18 <Zeeshan Hartley - Last Filed: 01/05/20 16:26> - Lab Data Result diagrams: 01/05/20 15:18 01/05/20 15:18 <SeverianoJacque mena - Last Filed: 01/05/20 17:32> - Medical Decision Making 49yo female presenting for leg swelling, generalized weakness with difficulty ambulating/leg swelling. Leg swelling chronic but increased, Denies SOB, chest pain. Patient albumin is low. Patient labs near patient baseline. EKG mild QT prolongation no other findings at this time. Called interventional radiology to discuss paracentsis, however patient unable to get in until tomorrow. Patietn case discussed with Dr. hartley who is agreeable to admission. patient is agreeable to admission and care plan. Ventricular rate 105 bpm, MO interval 156 ms, QRS ration 98 ms, QT/QTc 408/539 ms. Sinus tachycardia, QT prolongation (Jacque Simms) - Lab Data Lab Results 01/05/20 01/05/20 01/05/20 Range/Units 15:18 15:18 15:18 WBC 5.3 (3.8-10.6) k/uL RBC 3.70 L (3.80-5.40) m/uL Hgb 9.3 L (11.4-16.0) gm/dL Hct 30.0 L (34.0-46.0) % MCV 81.1 (80.0-100.0) fL MCH 25.0 (25.0-35.0) pg MCHC 30.8 L (31.0-37.0) g/dL RDW 19.5 H (11.5-15.5) % Plt Count 53 L (150-450) k/uL Neutrophils % 79 % Lymphocytes % 11 % Monocytes % 7 % Eosinophils % 1 % Basophils % 1 % Neutrophils # 4.2 (1.3-7.7) k/uL Lymphocytes # 0.6 L (1.0-4.8) k/uL Monocytes # 0.4 (0-1.0) k/uL Eosinophils # 0.1 (0-0.7) k/uL Basophils # 0.0 (0-0.2) k/uL Manual Slide Review Performed Hypochromasia Marked Poikilocytosis Slight Anisocytosis Slight Microcytosis Slight PT (9.0-12.0) sec INR (<1.2) APTT (22.0-30.0) sec Sodium 131 L (137-145) mmol/L Potassium 4.0 (3.5-5.1) mmol/L Chloride 98 (98-107) mmol/L Carbon Dioxide 26 (22-30) mmol/L Anion Gap 7 mmol/L BUN 18 H (7-17) mg/dL Creatinine 0.74 (0.52-1.04) mg/dL Est GFR (CKD-EPI)AfAm >90 (>60 ml/min/1.73 sqM) Est GFR (CKD-EPI)NonAf >90 (>60 ml/min/1.73 sqM) Glucose 162 H (74-99) mg/dL Calcium 8.0 L (8.4-10.2) mg/dL Total Bilirubin 2.4 H (0.2-1.3) mg/dL AST 79 H (14-36) U/L ALT 27 (4-34) U/L Alkaline Phosphatase 234 H (38-126) U/L Total Protein 7.9 (6.3-8.2) g/dL Albumin 2.8 L (3.5-5.0) g/dL Amylase 58 (30-110) U/L Lipase 377 H (23-300) U/L Urine Color Yellow Urine Appearance Cloudy H (Clear) Urine pH 6.0 (5.0-8.0) Ur Specific [place] 1.018 (1.001-1.035) Urine Protein Trace H (Negative) Urine Glucose (UA) Negative (Negative) Urine Ketones Negative (Negative) Urine Blood Negative (Negative) Urine Nitrite Negative (Negative) Urine Bilirubin 1+ H (Negative) Urine Urobilinogen 6.0 (<2.0) mg/dL Ur Leukocyte Esterase Small H (Negative) Urine RBC 7 H (0-5) /hpf Urine WBC 4 (0-5) /hpf Ur Squamous Epith Cells 5 H (0-4) /hpf Calcium Oxalate Crystal Rare H (None) /hpf Hyaline Casts 36 H (0-2) /lpf Urine Mucus Rare H (None) /hpf 01/05/20 Range/Units 15:27 WBC (3.8-10.6) k/uL RBC (3.80-5.40) m/uL Hgb (11.4-16.0) gm/dL Hct (34.0-46.0) % MCV (80.0-100.0) fL MCH (25.0-35.0) pg MCHC (31.0-37.0) g/dL RDW (11.5-15.5) % Plt Count (150-450) k/uL Neutrophils % % Lymphocytes % % Monocytes % % Eosinophils % % Basophils % % Neutrophils # (1.3-7.7) k/uL Lymphocytes # (1.0-4.8) k/uL Monocytes # (0-1.0) k/uL Eosinophils # (0-0.7) k/uL Basophils # (0-0.2) k/uL Manual Slide Review Hypochromasia Poikilocytosis Anisocytosis Microcytosis PT 14.6 H (9.0-12.0) sec INR 1.5 H (<1.2) APTT 25.1 (22.0-30.0) sec Sodium (137-145) mmol/L Potassium (3.5-5.1) mmol/L Chloride (98-107) mmol/L Carbon Dioxide (22-30) mmol/L Anion Gap mmol/L BUN (7-17) mg/dL Creatinine (0.52-1.04) mg/dL Est GFR (CKD-EPI)AfAm (>60 ml/min/1.73 sqM) Est GFR (CKD-EPI)NonAf (>60 ml/min/1.73 sqM) Glucose (74-99) mg/dL Calcium (8.4-10.2) mg/dL Total Bilirubin (0.2-1.3) mg/dL AST (14-36) U/L ALT (4-34) U/L Alkaline Phosphatase (38-126) U/L Total Protein (6.3-8.2) g/dL Albumin (3.5-5.0) g/dL Amylase (30-110) U/L Lipase (23-300) U/L Urine Color Urine Appearance (Clear) Urine pH (5.0-8.0) Ur Specific [place] (1.001-1.035) Urine Protein (Negative) Urine Glucose (UA) (Negative) Urine Ketones (Negative) Urine Blood (Negative) Urine Nitrite (Negative) Urine Bilirubin (Negative) Urine Urobilinogen (<2.0) mg/dL Ur Leukocyte Esterase (Negative) Urine RBC (0-5) /hpf Urine WBC (0-5) /hpf Ur Squamous Epith Cells (0-4) /hpf Calcium Oxalate Crystal (None) /hpf Hyaline Casts (0-2) /lpf Urine Mucus (None) /hpf Disposition <Zeeshan Hartley - Last Filed: 01/05/20 16:26> Is patient prescribed a controlled substance at d/c from ED?: No Time of Disposition: 15:24 Decision to Admit Reason: Admit from EC Decision Date: 01/05/20 Decision Time: 15:24 <Jacque Simms - Last Filed: 01/05/20 17:32> Clinical Impression: Ascites, Abdominal distention, Generalized weakness, Leg swelling, QT prolongation Disposition: ADMITTED IP TO THIS [facility] Condition: Stable
[2020-01-05 15:43] LABS: Appearance,Urine Cloudy (Clear); Bilirubin,Urine 1+ (Negative); Blood,Urine Negative (Negative); Calcium Oxalate Crystals,Urine Rare /hpf; Color,Urine Yellow; Glucose,Urine (UA) Negative (Negative); Hyaline Casts,Urine 36 /lpf (0-2); Ketones,Urine Negative (Negative); Leukocyte Esterase,Urine Small (Negative); Mucus,Urine Rare /hpf; Nitrite,Urine Negative (Negative); Protein,Urine Trace (Negative); RBC,Urine 7 /hpf (0-5); Specific Gravity,Urine 1.018 (1.001-1.035); Squamous Epithelial Cell,Urine 5 /hpf (0-4); WBC,Urine 4 /hpf (0-5)
[2020-01-05 15:51] LABS: INR 1.5 (<1.2); Partial Thromboplastin Time 25.1 sec (22.0-30.0); Prothrombin Time 14.6 sec (9.0-12.0)
[2020-01-05 15:52] LABS: Anisocytosis Slight; Basophils % (A) 1 %; Eosinophils # (A) 0.1 k/uL (0-0.7); Eosinophils % (A) 1 %; HGB 9.3 gm/dL (11.4-16.0); Hypochromasia Marked; Lymphocytes # (A) 0.6 k/uL (1.0-4.8); Lymphocytes % (A) 11 %; MCHC 30.8 g/dL (31.0-37.0); MCV 81.1 fL (80.0-100.0); Microcytosis Slight; Monocytes # (A) 0.4 k/uL (0-1.0); Monocytes % (A) 7 %; Neutrophils # (A) 4.2 k/uL (1.3-7.7); Neutrophils % (A) 79 %; Poikilocytosis Slight; RDW 19.5 % (11.5-15.5); WBC 5.3 k/uL (3.8-10.6)
[2020-01-05 15:53] LABS: ALT 27 U/L (4-34); AST 79 U/L (14-36); African American GFR (CKD) >90 (>60 ml/min/1.73 sqM); Albumin 2.8 g/dL (3.5-5.0); Alkaline Phosphatase 234 U/L (38-126); Amylase 58 U/L (30-110); Anion Gap 7 mmol/L; Blood Urea Nitrogen 18 mg/dL (7-17); Carbon Dioxide 26 mmol/L (22-30); Chloride 98 mmol/L (98-107); Glucose 162 mg/dL (74-99); Non-African American GFR(CKD) >90 (>60 ml/min/1.73 sqM); Sodium 131 mmol/L (137-145); Total Bilirubin 2.4 mg/dL (0.2-1.3); Total Protein 7.9 g/dL (6.3-8.2)
--- NOTE | 2020-01-05 16:13 | US ---
EXAMINATION TYPE: US abdomen limited DATE OF EXAM: 01/05/2020 COMPARISON: US CLINICAL HISTORY: fluid. Prior paracentesis one month ago. Recurrent fluid and swelling. Ascites is seen in all 4 abdominal quadrants with largest pocket seen in LLQ = 13.4cm A/P. IMPRESSION: Moderate to large amount of recurrent ascites perhaps slightly less than visualized prio r to paracentesis December 12, 2019. Greatest pocket left lower quadrant similar to prior.
[2020-01-05] MEDS ORDERED: HYDROmorphone 0.5 MG/0.5 ML SYRINGE IVP STA (16:19)
[2020-01-05 16:22] LABS: Platelet Count 53 k/uL (150-450)
[2020-01-05] MEDS ORDERED: NALOXONE 0.4 MG/ML 1 ML VIAL IV PRN (16:53)
[2020-01-05] MEDS ORDERED: LORazepam 1 MG TAB PO PRN (17:00)
[2020-01-05] MEDS ORDERED: ACETAMINOPHEN TAB 325 MG TAB PO PRN (17:00)
--- NOTE | 2020-01-05 17:12 | P.HPIM ---
History of Present Illness H&P Date: 01/05/20 Chief Complaint: Generalized weakness This is a 49-year-old female with past medical history significant for nonalcoholic cirrhosis who presented to the emergency room with worsening ascites and generalized weakness. Patient said that she was released from her rehab center approximately 2 weeks ago for the past several days she has been gaining so much weight and fluid and was unable to get out of bed this morning. She is also complaining of some abdominal pain. She denies any fevers or chills. No diarrhea. She had a large paracentesis last month with approximatel y 7.8 L removed. She has a standing order for paracentesis but is unable to get up and walk by herself and for that reason she'll be admitted to the hospital. Review of Systems Review of system: 14 points review of systems were obtained and were negative except to what were mentioned in the HPI. Past Medical History Past Medical History: Diabetes Mellitus, Hyperlipidemia, Hypertension, Liver Disease Additional Past Medical History / Comment(s): Fatty non alcholic liver disease - comes in for paracentesis often History of Any Multi-Drug Resistant Organisms: MRSA, VRE Date of last positivie culture/infection: 09/17/18 VRE 01/2010 MRSA MDRO Source:: VRE URINE/ MRSA ABDOMEN Past Surgical History: Section, Hysterectomy Additional Past Surgical History / Comment(s): Oophrarectomy Past Anesthesia/Blood Transfusion Reactions: No Reported Reaction Past Psychological History: Bipolar, Depression Smoking Status: Never smoker Past Alcohol Use History: None Reported Past Drug Use History: None Reported - Past Family History Father Family Medical History: COPD, Hyperlipidemia, Hypertension, Renal Disease Mother Family Medical History: Hyperlipidemia, Hypertension Medications and Allergies Home Medications Medication Instructions Recorded Confirmed Type Sertraline [Zoloft] 200 mg PO DAILY 09/02/14 01/05/20 History ARIPiprazole [Abilify] 20 mg PO DAILY 09/13/18 01/05/20 History lamoTRIgine [LaMICtal] 25 mg PO BID 08/23/19 01/05/20 History Pantoprazole [Protonix] 40 mg PO AC-BID #60 tablet. 09/09/19 01/05/20 Rx traZODone HCL 200 mg PO HS 10/31/19 01/05/20 History Spironolactone 50 mg PO DAILY 11/14/19 01/05/20 History Acetaminophen Tab [Tylenol] 650 mg PO Q12H PRN 12/12/19 01/05/20 History Folic Acid 1 mg PO DAILY 12/12/19 01/05/20 History Furosemide [Lasix] 40 mg PO BID tab 12/12/19 01/05/20 Rx INSULIN LISPRO (humaLOG) [humaLOG] See Protocol SQ AC-TID 12/12/19 01/05/20 His tory Lactulose 20 gm PO DAILY 12/12/19 01/05/20 History Lidocaine 5% Patch [Lidoderm 5% 1 patch TOPICAL DAILY 12/12/19 01/05/20 History Patch] Nystatin 100,000 Unit/gm Powd 1 applic TOPICAL TID 12/12/19 01/05/20 History [Mycostatin Powder] Potassium Chloride ER [K-Dur 10] 10 meq PO BID #0 12/12/19 01/05/20 Rx Rifaximin [Xifaxan] 550 mg PO BID@0800,199912/12/19 01/05/20 History LORazepam [Ativan] 1 mg PO DAILY PRN #5 tab 12/13/19 01/05/20 Rx Zolpidem [Ambien] 10 mg PO HS #5 tab 12/13/19 01/05/20 Rx Allergies Allergy/AdvReac Type Severity Reaction Status Date / Time Penicillins Allergy Rash/Hives Verified 01/05/20 16:01 Sulfa (Sulfonamide Allergy Rash/Hives Verified 01/05/20 16:01 Antibiotics) erythromycin base AdvReac Abdominal Verified 01/05/20 16:01 Pain meperidine HCl [From Demerol] AdvReac Confusion/N Verified 01/05/20 16:01 ausea Physical Exam Vitals: Vital Signs Temp Pulse Resp BP Pulse Ox 01/05/20 15:09 97.5 F L 104 H 22 129/62 96 Intake and Output 01/05/20 01/05/20 01/05/20 06:59 14:59 22:59 Other: Weight 131.542 kg General: The patient is awake and alert, in no distress Eye: there is normal conjunctiva bilaterally. Neck: The neck is supple, there is no JVD. Cardiovascular: Normal S1-S2, no S3-S4, no murmurs. Respiratory: Lungs clear to auscultation bilaterally Gastrointestinal: Abdomen is soft, with mild tenderness to palpation and large ascites noted Musculoskeletal: There is anasarca up to the hip Neurological:. Speech is normal. Skin: Skin is warm and dry Results CBC & Chem 7: 01/05/20 15:18 01/05/20 15:18 Labs: Abnormal Lab Results - Last 24 Hours (Table) 01/05/20 01/05/20 01/05/20 Range/Units 15:18 15:18 15:18 RBC 3.70 L (3.80-5.40) m/uL Hgb 9.3 L (11.4-16.0) gm/dL Hct 30.0 L (34.0-46.0) % MCHC 30.8 L (31.0-37.0) g/dL RDW 19.5 H (11.5-15.5) % Plt Count 53 L (150-450) k/uL Lymphocytes # 0.6 L (1.0-4.8) k/uL PT (9.0-12.0) sec INR (<1.2) Sodium 131 L (137-145) mmol/L BUN 18 H (7-17) mg/dL Glucose 162 H (74-99) mg/dL Calcium 8.0 L (8.4-10.2) mg/dL Total Bilirubin 2.4 H (0.2-1.3) mg/dL AST 79 H (14-36) U/L Alkaline Phosphatase 234 H (38-126) U/L Albumin 2.8 L (3.5-5.0) g/dL Lipase 377 H (23-300) U/L Urine Appearance Cloudy H (Clear) Urine Protein Trace H (Negative) Urine Bilirubin 1+ H (Negative) Ur Leukocyte Esterase Small H (Negative) Urine RBC 7 H (0-5) /hpf Ur Squamous Epith Cells 5 H (0-4) /hpf Calcium Oxalate Crystal Rare H (None) /hpf Hyaline Casts 36 H (0-2) /lpf Urine Mucus Rare H (None) /hpf 01/05/20 Range/Units 15:27 RBC (3.80-5.40) m/uL Hgb (11.4-16.0) gm/dL Hct (34.0-46.0) % MCHC (31.0-37.0) g/dL RDW (11.5-15.5) % Plt Count (150-450) k/uL Lymphocytes # (1.0-4.8) k/uL PT 14.6 H (9.0-12.0) sec INR 1.5 H (<1.2) Sodium (137-145) mmol/L BUN (7-17) mg/dL Glucose (74-99) mg/dL Calcium (8.4-10.2) mg/dL Total Bilirubin (0.2-1.3) mg/dL AST (14-36) U/L Alkaline Phosphatase (38-126) U/L Albumin (3.5-5.0) g/dL Lipase (23-300) U/L Urine Appearance (Clear) Urine Protein (Negative) Urine Bilirubin (Negative) Ur Leukocyte Esterase (Negative) Urine RBC (0-5) /hpf Ur Squamous Epith Cells (0-4) /hpf Calcium Oxalate Crystal (None) /hpf Hyaline Casts (0-2) /lpf Urine Mucus (None) /hpf Assessment and Plan Assessment: 1. Worsening ascites and anasarca: Patient requires frequent paracentesis. IR consulted for repeat paracentesis. No clinical evidence of SBP. We will continue diuresis with IV Lasix 40 mg twice daily. Increase spironolactone dose to 100 mg daily. Daily weights. Monitor urine output. Check postvoid residual with straight catheter. 2. Non-alcoholic liver cirrhosis: Following with GI in the office. 3. Physical debility: Consult PT/OT. 4. Essential hypertension: Blood pressure within acceptable range. We will continue to monitor 5. Chronic thrombocytopenia secondary to underlying liver disease 6. DVT prophylaxis with early ambulation and SCD
[2020-01-05] MEDS: PANTOPRAZOLE 40 MG TABLET PO SCH (18:18)
[2020-01-05] MEDS: FUROSEMIDE 10 MG/ML 4 ML VIAL IV SCH (18:18)
[2020-01-05] MEDS ORDERED: KETOROLAC 15 MG/ML 1 ML VIAL IVP STA (20:55)
[2020-01-05 21:19] LABS: Glucose,Whole Blood 171 mg/dL (75-99)
[2020-01-05] MEDS: RIFAXIMIN 550 MG TABLET PO SCH (21:29)
[2020-01-05] MEDS: ZOLPIDEM 10 MG TAB PO SCH (21:30)
[2020-01-05] MEDS: lamoTRIgine 25 MG TAB PO SCH (21:30)
[2020-01-05] MEDS: POTASSIUM CHLORIDE ER 10 MEQ TAB.ER.PRT PO SCH (21:30)
[2020-01-05] MEDS: INSULIN ASPART (NovoLOG) 100 UNIT/ML VIAL SQ SCH (21:30)
[2020-01-06] MEDS: FUROSEMIDE 10 MG/ML 4 ML VIAL IV SCH ×2 (06:00→17:48)
[2020-01-06 07:15] LABS: Glucose,Whole Blood 135 mg/dL (75-99)
[2020-01-06] MEDS: lamoTRIgine 25 MG TAB PO SCH ×2 (08:27→22:12)
[2020-01-06] MEDS: SERTRALINE 100 MG TAB PO SCH (08:27)
[2020-01-06] MEDS: LACTULOSE 20 GM/30 ML CUP PO SCH (08:27)
[2020-01-06] MEDS: INSULIN ASPART (NovoLOG) 100 UNIT/ML VIAL SQ SCH ×4 (08:27→22:17)
[2020-01-06] MEDS: RIFAXIMIN 550 MG TABLET PO SCH ×2 (08:28→22:11)
[2020-01-06] MEDS: SPIRONOLACTONE 25 MG TAB PO SCH (08:28)
[2020-01-06] MEDS: POTASSIUM CHLORIDE ER 10 MEQ TAB.ER.PRT PO SCH ×2 (08:28→22:11)
[2020-01-06] MEDS: PANTOPRAZOLE 40 MG TABLET PO SCH ×2 (08:28→17:48)
[2020-01-06 08:32] LABS: Anisocytosis Slight; Basophils % (A) 1 %; Eosinophils % (A) 1 %; HCT 26.5 % (34.0-46.0); Hypochromasia Marked; Lymphocytes # (A) 0.6 k/uL (1.0-4.8); Lymphocytes % (A) 15 %; MCH 24.7 pg (25.0-35.0); MCHC 30.3 g/dL (31.0-37.0); MCV 81.5 fL (80.0-100.0); Mean Platelet Volume 8.4; Microcytosis Slight; Monocytes # (A) 0.3 k/uL (0-1.0); Monocytes % (A) 9 %; Neutrophils # (A) 2.6 k/uL (1.3-7.7); Neutrophils % (A) 72 %; RBC 3.25 m/uL (3.80-5.40); RDW 19.9 % (11.5-15.5); WBC 3.6 k/uL (3.8-10.6)
[2020-01-06 08:35] LABS: Platelet Count 56 k/uL (150-450)
[2020-01-06 08:47] LABS: Calcium 7.8 mg/dL (8.4-10.2); Potassium 3.2 mmol/L (3.5-5.1)
[2020-01-06] MEDS ORDERED: Magnesium Replacement Protocol 1 EACH MISC MISCELLANE PRN (11:58)
[2020-01-06] MEDS ORDERED: Potassium Replacement Protocol 1 EACH MISC MISCELLANE PRN (11:58)
--- NOTE | 2020-01-06 12:38 | US ---
EXAMINATION TYPE: US paracentesis abd w/image DATE OF EXAM: 01/06/2020 CLINICAL HISTORY: Ascites The procedure was discussed with the patient. The risks, complications, benefits, and alternatives we re discussed and any questions were answered. Informed consent was obtained. The patient was placed s upine on the ultrasound table and prepped and draped in the usual sterile fashion. All elements of maximal barrier technique were utilized. Under ultrasound guidance, access into the right lower quadrant was obtained, via the paracentesis catheter system and direct ultrasound guidanc e. Approximately 10 liters of straw-colored fluid was removed. The patient was stable throughout the pro cedure and remained stable upon discharge from Department of Radiology. Sample sent to pathology for analysis. IMPRESSION: Successful paracentesis under ultrasound guidance.
--- NOTE | 2020-01-06 13:07 | P.PN ---
Subjective Progress Note Date: 01/06/20 Patient underwent large volume paracentesis today. No acute events overnight reported by nursing staff. Objective - Vital Signs Vital signs: Vital Signs Temp 97.5 F L 01/06/20 05:21 Pulse 96 01/06/20 12:26 Resp 18 01/06/20 12:26 BP 108/55 01/06/20 12:26 Pulse Ox 96 01/06/20 12:26 Intake & Output 01/05/20 01/06/20 01/06/20 18:59 06:59 18:59 Intake Total 1000 Balance 1000 Weight 131.542 kg 112.5 kg Intake: Oral 1000 Other: # Voids 1 - Exam General: The patient is awake and alert, in no distress Eye: there is normal conjunctiva bilaterally. Neck: The neck is supple, there is no JVD. Cardiovascular: Normal S1-S2, no S3-S4, no murmurs. Respiratory: Lungs clear to auscultation bilaterally Gastrointestinal: Abdomen is soft, nontender Musculoskeletal: There is anasarca up to the hip. Neurological:. Speech is normal. Skin: Skin is warm and dry - Labs CBC & Chem 7: 01/06/20 07:39 01/06/20 07:39 Labs: Abnormal Lab Results - Last 24 Hours (Table) 01/05/20 01/05/20 01/05/20 Range/Units 15:18 15:18 15:18 WBC (3.8-10.6) k/uL RBC 3.70 L (3.80-5.40) m/uL Hgb 9.3 L (11.4-16.0) gm/dL Hct 30.0 L (34.0-46.0) % MCH (25.0-35.0) pg MCHC 30.8 L (31.0-37.0) g/dL RDW 19.5 H (11.5-15.5) % Plt Count 53 L (150-450) k/uL Lymphocytes # 0.6 L (1.0-4.8) k/uL PT (9.0-12.0) sec INR (<1.2) Sodium 131 L (137-145) mmol/L Potassium (3.5-5.1) mmol/L Chloride (98-107) mmol/L BUN 18 H (7-17) mg/dL Glucose 162 H (74-99) mg/dL POC Glucose (mg/dL) (75-99) mg/dL Calcium 8.0 L (8.4-10.2) mg/dL Total Bilirubin 2.4 H (0.2-1.3) mg/dL AST 79 H (14-36) U/L Alkaline Phosphatase 234 H (38-126) U/L Albumin 2.8 L (3.5-5.0) g/dL Lipase 377 H (23-300) U/L Urine Appearance Cloudy H (Clear) Urine Protein Trace H (Negative) Urine Bilirubin 1+ H (Negative) Ur Leukocyte Esterase Small H (Negative) Urine RBC 7 H (0-5) /hpf Ur Squamous Epith Cells 5 H (0-4) /hpf Calcium Oxalate Crystal Rare H (None) /hpf Hyaline Casts 36 H (0-2) /lpf Urine Mucus Rare H (None) /hpf 01/05/20 01/05/20 01/06/20 Range/Units 15:27 21:17 07:14 WBC (3.8-10.6) k/uL RBC (3.80-5.40) m/uL Hgb (11.4-16.0) gm/dL Hct (34.0-46.0) % MCH (25.0-35.0) pg MCHC (31.0-37.0) g/dL RDW (11.5-15.5) % Plt Count (150-450) k/uL Lymphocytes # (1.0-4.8) k/uL PT 14.6 H (9.0-12.0) sec INR 1.5 H (<1.2) Sodium (137-145) mmol/L Potassium (3.5-5.1) mmol/L Chloride (98-107) mmol/L BUN (7-17) mg/dL Glucose (74-99) mg/dL POC Glucose (mg/dL) 171 H 135 H (75-99) mg/dL Calcium (8.4-10.2) mg/dL Total Bilirubin (0.2-1.3) mg/dL AST (14-36) U/L Alkaline Phosphatase (38-126) U/L Albumin (3.5-5.0) g/dL Lipase (23-300) U/L Urine Appearance (Clear) Urine Protein (Negative) Urine Bilirubin (Negative) Ur Leukocyte Esterase (Negative) Urine RBC (0-5) /hpf Ur Squamous Epith Cells (0-4) /hpf Calcium Oxalate Crystal (None) /hpf Hyaline Casts (0-2) /lpf Urine Mucus (None) /hpf 01/06/20 01/06/20 Range/Units 07:39 07:39 WBC 3.6 L (3.8-10.6) k/uL RBC 3.25 L (3.80-5.40) m/uL Hgb 8.0 L (11.4-16.0) gm/dL Hct 26.5 L (34.0-46.0) % MCH 24.7 L (25.0-35.0) pg MCHC 30.3 L (31.0-37.0) g/dL RDW 19.9 H (11.5-15.5) % Plt Count 56 L (150-450) k/uL Lymphocytes # 0.6 L (1.0-4.8) k/uL PT (9.0-12.0) sec INR (<1.2) Sodium 131 L (137-145) mmol/L Potassium 3.2 L (3.5-5.1) mmol/L Chloride 97 L (98-107) mmol/L BUN 21 H (7-17) mg/dL Glucose 125 H (74-99) mg/dL POC Glucose (mg/dL) (75-99) mg/dL Calcium 7.8 L (8.4-10.2) mg/dL Total Bilirubin (0.2-1.3) mg/dL AST (14-36) U/L Alkaline Phosphatase (38-126) U/L Albumin (3.5-5.0) g/dL Lipase (23-300) U/L Urine Appearance (Clear) Urine Protein (Negative) Urine Bilirubin (Negative) Ur Leukocyte Esterase (Negative) Urine RBC (0-5) /hpf Ur Squamous Epith Cells (0-4) /hpf Calcium Oxalate Crystal (None) /hpf Hyaline Casts (0-2) /lpf Urine Mucus (None) /hpf Assessment and Plan Assessment: This is a 49-year-old female with complex past medical history noted below presented to the emergency room with worsening edema and weakness. Patient was evaluated in the ER and admitted to the hospital for further management of her medical problems noted below. 1. Worsening ascites and anasarca: Patient requires frequent paracentesis. IR consulted for repeat paracentesis. No clinical evidence of SBP. We will continue diuresis with IV Lasix 40 mg twice daily. Increase spironolactone dose to 100 mg daily. Daily weights. Monitor urine output. Check postvoid residual with straight catheter. 2. Non-alcoholic liver cirrhosis: Following with GI in the office. 3. Physical debility: Consult PT/OT. 4. Essential hypertension: Blood pressure within acceptable range. We will continue to monitor 5. Chronic thrombocytopenia secondary to underlying liver disease 6. DVT prophylaxis with early ambulation and SCD Awaiting paracentesis report. Per verbal report 10 L of fluid removed. We will order IV albumin 50 grams 1. Repeat lab work in the morning. Advised nursing staff to measure weight accurately. Continue diuresis
[2020-01-06] MEDS: ALBUMIN HUMAN 25% 50 ML in EMPTY BAG 1 BAG IVPB SCH ×4 (13:29→15:09)
[2020-01-06 17:32] LABS: Glucose,Whole Blood 141 mg/dL (75-99)
[2020-01-06] MEDS ORDERED: traZODone HCL 100 MG TAB PO SCH (21:00)
[2020-01-06 21:31] LABS: Glucose,Whole Blood 158 mg/dL (75-99)
[2020-01-06] MEDS: ZOLPIDEM 10 MG TAB PO SCH (22:12)
[2020-01-06 23:06] LABS: Appearance,BF Hazy; Color,BF Yellow; Nucleated Cells, Body Fluid 4 /uL
[2020-01-06 23:07] LABS: RBC, Body Fluid 105 /uL
[2020-01-07] MEDS: FUROSEMIDE 10 MG/ML 4 ML VIAL IV SCH (05:05)
[2020-01-07 07:23] LABS: Glucose,Whole Blood 116 mg/dL (75-99)
[2020-01-07 07:27] LABS: Anisocytosis Slight; Basophils % (A) 0 %; Eosinophils % (A) 1 %; HCT 23.7 % (34.0-46.0); HGB 7.3 gm/dL (11.4-16.0); Hypochromasia Marked; Lymphocytes # (A) 0.5 k/uL (1.0-4.8); Lymphocytes % (A) 18 %; MCH 25.2 pg (25.0-35.0); MCHC 30.7 g/dL (31.0-37.0); Mean Platelet Volume 8.3; Microcytosis Slight; Monocytes # (A) 0.2 k/uL (0-1.0); Monocytes % (A) 8 %; Neutrophils # (A) 1.9 k/uL (1.3-7.7); Neutrophils % (A) 70 %; RBC 2.89 m/uL (3.80-5.40); RDW 19.4 % (11.5-15.5); WBC 2.7 k/uL (3.8-10.6)
[2020-01-07 07:33] LABS: Platelet Count 41 k/uL (150-450)
[2020-01-07] MEDS: INSULIN ASPART (NovoLOG) 100 UNIT/ML VIAL SQ SCH ×2 (07:40→13:09)
[2020-01-07 07:47] LABS: Calcium 7.6 mg/dL (8.4-10.2); Magnesium 1.6 mg/dL (1.6-2.3); Potassium 3.1 mmol/L (3.5-5.1)
[2020-01-07] MEDS: RIFAXIMIN 550 MG TABLET PO SCH (08:35)
[2020-01-07] MEDS: POTASSIUM CHLORIDE ER 10 MEQ TAB.ER.PRT PO SCH (08:35)
[2020-01-07] MEDS: SERTRALINE 100 MG TAB PO SCH (08:35)
[2020-01-07] MEDS: SPIRONOLACTONE 25 MG TAB PO SCH ×2 (08:35→11:03)
[2020-01-07] MEDS: LACTULOSE 20 GM/30 ML CUP PO SCH ×2 (08:36→08:51)
[2020-01-07] MEDS: PANTOPRAZOLE 40 MG TABLET PO SCH (08:36)
[2020-01-07] MEDS: MAGNESIUM SULFATE-D5W PMX 1 GM in DEXTROSE/WATER 1 100ML.BAG IVPB SCH ×2 (08:36→10:49)
[2020-01-07] MEDS: lamoTRIgine 25 MG TAB PO SCH (08:36)
--- NOTE | 2020-01-07 10:15 | P.DS ---
Providers Date of admission: 01/05/20 16:26 Expected date of discharge: 01/07/20 Attending physician: Sky Estevez Primary care physician: Woodrow [facility] Course: This is a 49-year-old female with complex past medical history noted below presented to the emergency room with worsening edema and weakness. Patient was evaluated in the ER and admitted to the hospital for further management of her medical problems noted below. 1. Worsening ascites and anasarca: Status post paracentesis on 01/05 with approximately 10 L of fluid removed. Patient was given albumin afterward. Patient requires frequent paracentesis. No clinical evidence of SBP. Fluid overload improved with IV Lasix. Increase spironolactone dose to 100 mg daily. Postvoid residual check with straight catheterization with no evidence of urinary retention. 2. Non-alcoholic liver cirrhosis: Following with GI in the office. 3. Physical debility: Seen by PT/OT. Patient would like to be discharged home 4. Essential hypertension: Blood pressure within acceptable range 5. Chronic thrombocytopenia secondary to underlying liver disease 6. Hypomagnesemia: Started on magnesium supplements Patient will be discharged home in a stable condition. For further details about this hospitalization please refer to the electronic chart. Patient Condition at Discharge: Poor Plan - Discharge Summary Discharge Rx Participant: Yes New Discharge Prescriptions: New Magnesium Oxide [Mag-Ox] 400 mg PO DAILY #30 tab Spironolactone 100 mg PO DAILY #30 tablet Continue Sertraline [Zoloft] 200 mg PO DAILY ARIPiprazole [Abilify] 20 mg PO DAILY lamoTRIgine [LaMICtal] 25 mg PO BID Pantoprazole [Protonix] 40 mg PO AC-BID #60 tablet. traZODone HCL 200 mg PO HS Acetaminophen Tab [Tylenol] 650 mg PO Q12H PRN PRN Reason: Pain Nystatin 100,000 Unit/gm Powd [Mycostatin Powder] 1 applic TOPICAL TID INSULIN LISPRO (humaLOG) [humaLOG] See Protocol SQ AC-TID Rifaximin [Xifaxan] 550 mg PO BID@0800,2000 Lidocaine 5% Patch [Lidoderm 5% Patch] 1 patch TOPICAL DAILY Lactulose 20 gm PO DAILY Folic Acid 1 mg PO DAILY Furosemide [Lasix] 40 mg PO BID tab Potassium Chloride ER [K-Dur 10] 10 meq PO BID #0 Zolpidem [Ambien] 10 mg PO HS #5 tab LORazepam [Ativan] 1 mg PO DAILY PRN #5 tab PRN Reason: Anxiety Discontinued Spironolactone 50 mg PO DAILY Discharge Medication List Sertraline [Zoloft] 200 mg PO DAILY 09/02/14 [History] ARIPiprazole [Abilify] 20 mg PO DAILY 09/13/18 [History] lamoTRIgine [LaMICtal] 25 mg PO BID 08/23/19 [History] Pantoprazole [Protonix] 40 mg PO AC-BID #60 tablet. 09/09/19 [Rx] traZODone HCL 200 mg PO HS 10/31/19 [History] Acetaminophen Tab [Tylenol] 650 mg PO Q12H PRN 12/12/19 [History] Folic Acid 1 mg PO DAILY 12/12/19 [History] Furosemide [Lasix] 40 mg PO BID tab 12/12/19 [Rx] INSULIN LISPRO (humaLOG) [humaLOG] See Protocol SQ AC-TID 12/12/19 [History] Lactulose 20 gm PO DAILY 12/12/19 [History] Lidocaine 5% Patch [Lidoderm 5% Patch] 1 patch TOPICAL DAILY 12/12/19 [History] Nystatin 100,000 Unit/gm Powd [Mycostatin Powder] 1 applic TOPICAL TID 12/12/19 [History] Potassium Chloride ER [K-Dur 10] 10 meq PO BID #0 12/12/19 [Rx] Rifaximin [Xifaxan] 550 mg PO BID@0800,2000 12/12/19 [History] LORazepam [Ativan] 1 mg PO DAILY PRN #5 tab 12/13/19 [Rx] Zolpidem [Ambien] 10 mg PO HS #5 tab 12/13/19 [Rx] Magnesium Oxide [Mag-Ox] 400 mg PO DAILY #30 tab 01/07/20 [Rx] Spironolactone 100 mg PO DAILY #30 tablet 01/07/20 [Rx] Follow up [facility]ment[facility]Ref[facility] 1 Week Woodrow Richards [Primary Care Provider] - 1-2 days Discharge Disposition: HOME WITH HOME HEALTH SERVICES
[2020-01-07 11:53] LABS: Glucose,Whole Blood 173 mg/dL (75-99)
[2020-01-07 12:59] VITALS: BP 100/58; PULSE 95; RESP 18; TEMP 98.1
== END 2020-01-07 15:04 | disposition home health service (06) ==
LOC: EC 14:47 → 6NMEDSUR 16:26
PROVIDERS: ADMIT Internal Medicine; ATTEND Internal Medicine
DX: R18.8 Other ascites (principal); E87.70 Fluid overload, unspecified; R53.1 Weakness; R26.2 Difficulty in walking, not elsewhere classified; R94.31 Abnormal electrocardiogram [ECG] [EKG]; K74.60 Unspecified cirrhosis of liver; R53.81 Other malaise; I10 Essential (primary) hypertension; D69.59 Other secondary thrombocytopenia; E83.42 Hypomagnesemia; F41.9 Anxiety disorder, unspecified; E78.5 Hyperlipidemia, unspecified; F31.9 Bipolar disorder, unspecified; E11.9 Type 2 diabetes mellitus without complications; Z79.899 Other long term (current) drug therapy; Z79.4 Long term (current) use of insulin; Z88.0 Allergy status to penicillin; Z88.5 Allergy status to narcotic agent; Z88.2 Allergy status to sulfonamides; Z88.1 Allergy status to other antibiotic agents; Z86.14 Personal history of Methicillin resistant Staphylococcus aureus infection; Z16.24 Resistance to multiple antibiotics; Z90.710 Acquired absence of both cervix and uterus; Z82.5 Family history of asthma and other chronic lower respiratory diseases; Z82.49 Family history of ischemic heart disease and other diseases of the circulatory system; Z84.1 Family history of disorders of kidney and ureter
CPT/HCPCS: 96376 ×2; 96365; 96366; 96375 ×2; 99285; 36415; 97162; 97166; 80053; 80048 ×2; 89050; 82150; 83690; 83735 ×2; 85025 ×3; 85610; 85730; 81001; 76705; 49083; G0378 ×3; J1940 ×3; P9047; J3475; J1885; J1170; 96374

== ENCOUNTER 2020-01-30 12:36 | Day surgery (SDC) | payer MEDICARE, OTHER ==
[2020-01-30 13:31] LABS: Mean Platelet Volume 8.2
[2020-01-30 13:32] LABS: Platelet Count 118 k/uL (150-450)
[2020-01-30 13:41] LABS: African American GFR (CKD) >90 (>60 ml/min/1.73 sqM); Glucose 177 mg/dL (74-99); Non-African American GFR(CKD) 85 (>60 ml/min/1.73 sqM)
[2020-01-30 13:43] LABS: INR 1.4 (<1.2); Prothrombin Time 13.8 sec (9.0-12.0)
[2020-01-30 13:44] VITALS: TEMP 98
[2020-01-30] MEDS: ALBUMIN HUMAN 25% 50 ML in EMPTY BAG 1 BAG IVPB SCH ×4 (14:47→15:20)
[2020-01-30 16:41] VITALS: BP 123/59; PULSE 98; RESP 16
--- NOTE | 2020-01-30 17:13 | US ---
EXAMINATION TYPE: US paracentesis abd w/image DATE OF EXAM: 01/30/2020 COMPARISON: NONE HISTORY: Ascites. PROCEDURE: Maximal barrier technique was utilized. The skin overlying a suitable pocket of fluid was localized with ultrasound and the overlying skin was prepped and draped. Ultrasound was utilized with sterile technique. Lidocaine was used for local anesthesia and a skin chantel made with a scalpel. Catheter was advanced under direct ultrasound guidance into a suitable pocket of fluid and approximately 10.8 lite rs of serous fluid were removed. Catheter was withdrawn and hemostasis achieved. There is no immedi ate complication; the patient is discharged in stable condition. IMPRESSION: STATUS POST ULTRASOUND GUIDED PARACENTESIS FOR PALLIATION OF ASCITES. THIS PROCEDURE WA S PERFORMED BY THE UNDERSIGNED.
== END 2020-01-30 16:15 | disposition home or self-care (01) ==
LOC: RADPROMAIN 12:36
PROVIDERS: ATTEND Internal Medicine
DX: R18.8 Other ascites (principal)
CPT/HCPCS: 82565; 82947; 85049; 85610; 36415; 49083; P9047

== ENCOUNTER 2020-02-16 11:55 | Day surgery (SDC) | payer MEDICARE, OTHER ==
[2020-02-16 13:59] LABS: Albumin 2.6 g/dL (3.5-5.0); Calcium 8.2 mg/dL (8.4-10.2); Potassium 4.1 mmol/L (3.5-5.1); Total Bilirubin 2.7 mg/dL (0.2-1.3); Total Protein 7.4 g/dL (6.3-8.2)
[2020-02-16 14:03] LABS: Anisocytosis Moderate; Basophils % (A) 0 %; Eosinophils % (A) 0 %; HCT 24.4 % (34.0-46.0); Hypochromasia Marked; Lymphocytes # (A) 0.7 k/uL (1.0-4.8); Lymphocytes % (A) 11 %; MCH 22.8 pg (25.0-35.0); MCHC 28.7 g/dL (31.0-37.0); MCV 79.3 fL (80.0-100.0); Mean Platelet Volume 8.6; Microcytosis Slight; Monocytes # (A) 0.4 k/uL (0-1.0); Monocytes % (A) 6 %; Neutrophils # (A) 4.9 k/uL (1.3-7.7); Neutrophils % (A) 82 %; Poikilocytosis Slight; RBC 3.07 m/uL (3.80-5.40); RDW 20.2 % (11.5-15.5)
[2020-02-16 14:11] LABS: INR 1.6 (<1.2); Prothrombin Time 16.2 sec (9.0-12.0)
[2020-02-16 14:30] LABS: Platelet Count 89 k/uL (150-450)
[2020-02-16] MEDS: ALBUMIN HUMAN 25% 50 ML in EMPTY BAG 1 BAG IVPB SCH ×4 (14:36→15:38)
[2020-02-16 15:28] VITALS: RESP 18; TEMP 97.9
[2020-02-16 16:25] VITALS: BP 95/56; PULSE 105
--- NOTE | 2020-02-27 09:26 | US ---
Ultrasound-guided paracentesis. DATE OF EXAM: 02/16/2020 CLINICAL HISTORY: Ascites The procedure was discussed with the patient. The risks, complications, benefits, and alternatives we re discussed and any questions were answered. Informed consent was obtained. The patient was placed s upine on the ultrasound table and prepped and draped in the usual sterile fashion. All elements of maximal barrier technique were utilized. Under ultrasound guidance, access into the left lower quadrant was obtained, via the paracentesis catheter system and direct ultrasound guidance . Approximately 8.5 liters of straw-colored fluid was removed. The patient was stable throughout the pr ocedure and remained stable upon discharge from Department of Radiology. IMPRESSION: Successful paracentesis under ultrasound guidance.
== END 2020-02-16 16:31 | disposition home or self-care (01) ==
LOC: RADPROMAIN 11:55
PROVIDERS: ATTEND Internal Medicine
DX: R18.8 Other ascites (principal)
CPT/HCPCS: 49083; 80053; 85025; 85610; P9047

== ENCOUNTER 2020-02-24 11:30 | Emergency (ER) | payer MEDICARE ==
--- NOTE | 2020-02-24 11:57 | ED ---
Wound/Laceration HPI - General Chief Complaint: Wound/Laceration Stated Complaint: Pressure Sores Time Seen by Provider: 02/24/20 11:34 Source: patient, EMS, RN notes reviewed, old records reviewed Mode of arrival: EMS Limitations: physical limitation - History of Present Illness Initial Comments: Patient's a 49-year-old female with a history of ascites. She reports that she has periodic paracentesis. She presents emergency department today with complaints of sacral wounds for the past 3 weeks. She reports that they're getting more painful. Patient states that she has not been seen or treated for these wounds at this time. She does not have any visiting nurses. She reports that she is able to ambulate to and from her bathroom. She reports that she frequently sedentary and sitting in a chair. Patient denies any fevers or chills. Denies any changes with urination or bowel habits. She does not have any visiting home care. - Related Data Home Medications Medication Instructions Recorded Confirmed Sertraline [Zoloft] 200 mg PO DAILY 09/02/14 02/16/20 ARIPiprazole [Abilify] 20 mg PO DAILY 09/13/18 02/16/20 lamoTRIgine [LaMICtal] 25 mg PO BID 08/23/19 02/16/20 traZODone HCL 200 mg PO HS 10/31/19 02/16/20 Acetaminophen Tab [Tylenol] 650 mg PO Q12H PRN 12/12/19 02/16/20 Folic Acid 1 mg PO DAILY 12/12/19 02/16/20 INSULIN LISPRO (humaLOG) [humaLOG] See Protocol SQ AC-TID 12/12/19 02/16/20 Lactulose 20 gm PO DAILY 12/12/19 02/16/20 Furosemide [Lasix] 40 mg PO DAILY 02/24/20 02/24/20 Spironolactone 50 mg PO BID 02/24/20 02/24/20 Previous Rx's Medication Instructions Recorded Pantoprazole [Protonix] 40 mg PO AC-BID #60 tablet. 09/09/19 Potassium Chloride ER [K-Dur 10] 10 meq PO BID #0 12/12/19 LORazepam [Ativan] 1 mg PO DAILY PRN #5 tab 12/13/19 Zolpidem [Ambien] 10 mg PO HS #5 tab 12/13/19 Magnesium Oxide [Mag-Ox] 400 mg PO DAILY #30 tab 01/07/20 Cephalexin [Keflex] 500 mg PO Q8HR #21 cap 02/24/20 Collagenase [Santyl] 1 applic TOPICAL DAILY #1 tube 02/24/20 Allergies Allergy/AdvReac Type Severity Reaction Status Date / Time Penicillins Allergy Rash/Hives Verified 02/24/20 13:10 Sulfa (Sulfonamide Allergy Rash/Hives Verified 02/24/20 13:10 Antibiotics) erythromycin base AdvReac Abdominal Verified 02/24/20 13:10 Pain meperidine HCl [From Demerol] AdvReac Confusion/N Verified 02/24/20 13:10 ausea Review of Systems ROS Statement: Those systems with pertinent positive or pertinent negative responses have been documented in the HPI. ROS Other: All systems not noted in ROS Statement are negative. Past Medical History Past Medical History: Diabetes Mellitus, Hyperlipidemia, Hypertension, Liver Disease Additional Past Medical History / Comment(s): Fatty non alcholic liver disease - Acites History of Any Multi-Drug Resistant Organisms: MRSA, VRE Date of last positivie culture/infection: 09/17/18 VRE 01/2010 MRSA MDRO Source:: VRE URINE/ MRSA ABDOMEN Past Surgical History: Section, Hysterectomy Additional Past Surgical History / Comment(s): Oophrarectomy, large volume paracentesis Past Anesthesia/Blood Transfusion Reactions: No Reported Reaction Past Psychological History: Bipolar, Depression Smoking Status: Never smoker Past Alcohol Use History: None Reported Past Drug Use History: None Reported - Past Family History Father Family Medical History: COPD, Hyperlipidemia, Hypertension, Renal Disease Mother Family Medical History: Hyperlipidemia, Hypertension General Exam - General Exam Comments Initial Comments: 49-year-old female. No distress Limitations: physical limitation General appearance: alert, in no apparent distress Head exam: Present: atraumatic, normocephalic, normal inspection Eye exam: Present: normal appearance, PERRL, EOMI. Absent: scleral icterus, conjunctival injection, periorbital swelling ENT exam: Present: normal exam, mucous membranes moist Neck exam: Present: normal inspection. Absent: tenderness, meningismus, lymphadenopathy Respiratory exam: Present: normal lung sounds bilaterally. Absent: respiratory distress, wheezes, rales, rhonchi, stridor Cardiovascular Exam: Present: regular rate, normal rhythm, normal heart sounds. Absent: systolic murmur, diastolic murmur, rubs, gallop, clicks GI/Abdominal exam: Present: soft, normal bowel sounds. Absent: distended, tenderness, guarding, rebound, rigid Extremities exam: Present: normal inspection, full ROM, normal capillary refill. Absent: tenderness, pedal edema, joint swelling, calf tenderness Back exam: Present: normal inspection, other (Patient has evidence of stage III pressure ulcers over her sacrum coccyx area. ) Neurological exam: Present: alert, oriented X3, CN II-XII intact Psychiatric exam: Present: normal affect Skin exam: Present: warm, dry, intact, normal color. Absent: rash Course Vital Signs 02/24/20 11:38 Temperature 98.2 F Pulse Rate 109 H Respiratory 18 Rate Blood Pressure 121/64 O2 Sat by Pulse 100 Oximetry Medical Decision Making - Medical Decision Making 49-year-old female with history of obesity and paracentesis frequently for ascites. She presents today with a decubitus ulcer over her buttocks. She reports is painful and sore. She has multiple areas of stage III. Each measures proximal when 2 cm 3 cm. Patient was advised to use wound care. Calling her primary care doctor. We'll put the Patient on Keflex at this time. Discussed trying to remain off the Patient using a wedge pillow. Disposition Clinical Impression: Decubitus ulcer, stage 3 Disposition: HOME SELF-CARE Condition: Good Instructions (If sedation given, give patient instructions): Chronic Wound Care (ED) Additional Instructions: Please use medication as discussed. Follow up with her primary care doctor on Thursday. Patient should change the dressing once a day. Please follow up with family doctor if symptoms have not improved over the next two days. Please return to the emergency room if your symptoms increase or worsen or for any other concerns. Prescriptions: Cephalexin [Keflex] 500 mg PO Q8HR #21 cap Collagenase [Santyl] 1 applic TOPICAL DAILY #1 tube Is patient prescribed a controlled substance at d/c from ED?: No Referrals: Woodrow Richards [Primary Care Provider] - 1-2 days Time of Disposition: 13:10
[2020-02-24] MEDS ORDERED: ACET/COD 300 MG/30 MG STARTER PACK 6 TAB BTL PO STA (12:50)
[2020-02-24] MEDS ORDERED: CEPHALEXIN 500MG STARTER PACK 4 CAP BTL PO STA (12:50)
[2020-02-24 13:21] VITALS: RESP 20
[2020-02-24 14:48] VITALS: BP 122/80; PULSE 99; TEMP 98.4
== END 2020-02-24 16:09 | disposition home or self-care (01) ==
LOC: EC 11:30
DX: L98.419 Non-pressure chronic ulcer of buttock with unspecified severity (principal); E11.622 Type 2 diabetes mellitus with other skin ulcer; F31.9 Bipolar disorder, unspecified; E78.5 Hyperlipidemia, unspecified; I10 Essential (primary) hypertension; Z79.4 Long term (current) use of insulin; Z79.899 Other long term (current) drug therapy; Z88.0 Allergy status to penicillin; Z88.2 Allergy status to sulfonamides; Z88.1 Allergy status to other antibiotic agents; Z88.5 Allergy status to narcotic agent; Z86.14 Personal history of Methicillin resistant Staphylococcus aureus infection
CPT/HCPCS: 87070; 87205; 99284

== ENCOUNTER 2020-02-28 11:33 | Inpatient (IN) | payer MEDICARE ==
[2020-02-28] MEDS ORDERED: SODIUM CHLORIDE 0.9% 500 ML 500 ML IV STA (12:43)
[2020-02-28 13:31] LABS: Anisocytosis Moderate; Basophils % (A) 0 %; Eosinophils # (A) 0.1 k/uL (0-0.7); Eosinophils % (A) 1 %; HCT 25.6 % (34.0-46.0); HGB 7.3 gm/dL (11.4-16.0); Hypochromasia Marked; Lymphocytes # (A) 0.5 k/uL (1.0-4.8); Lymphocytes % (A) 5 %; MCH 23.3 pg (25.0-35.0); MCHC 28.7 g/dL (31.0-37.0); MCV 81.2 fL (80.0-100.0); Mean Platelet Volume 7.7; Microcytosis Slight; Monocytes # (A) 0.6 k/uL (0-1.0); Monocytes % (A) 6 %; Neutrophils # (A) 8.2 k/uL (1.3-7.7); Neutrophils % (A) 87 %; RBC 3.15 m/uL (3.80-5.40); RDW 22.8 % (11.5-15.5); WBC 9.5 k/uL (3.8-10.6)
[2020-02-28 13:45] LABS: Albumin 2.5 g/dL (3.5-5.0); Calcium 8.2 mg/dL (8.4-10.2); Platelet Count 82 k/uL (150-450); Potassium 5.3 mmol/L (3.5-5.1); Total Bilirubin 4.4 mg/dL (0.2-1.3); Total Protein 7.3 g/dL (6.3-8.2)
--- NOTE | 2020-02-28 13:49 | XR ---
EXAMINATION TYPE: XR chest 2V DATE OF EXAM: 02/28/2020 COMPARISON: Chest x-ray September 06, 2019. HISTORY: Weakness after a fall injury today. TECHNIQUE: Frontal and lateral views of the chest are obtained. FINDINGS: Low lung volumes redemonstrated. Right infrahilar linear scarring and/or atelectasis. Left lung is clear. No pleural effusion or pneumothorax seen bilaterally. The cardiac silhouette size is stable and within normal limits. The osseous structures are intact. IMPRESSION: Low lung volumes with right infrahilar linear scarring and/or atelectasis.
[2020-02-28 14:05] LABS: INR 1.7 (<1.2); Partial Thromboplastin Time 26.6 sec (22.0-30.0); Prothrombin Time 16.5 sec (9.0-12.0)
--- NOTE | 2020-02-28 14:51 | US ---
EXAMINATION TYPE: US gallbladder DATE OF EXAM: 02/28/2020 COMPARISON: 01/05/2020 CLINICAL HISTORY: 49-year-old female with abdominal pain TECHNIQUE: Multiple sonographic images of the right upper quadrant are obtained. FINDINGS: EXAM MEASUREMENTS: Liver Length: 14.4 cm Gallbladder Wall: 0.4 cm CBD: 0.5 cm Right Kidney: 10.1 x 4.1 x 4.4 cm [employer] NOTES: Difficult and limited study due to patient body habitus Pancreas: Suboptimal visualization due to shadowing from bowel gas. Liver: Heterogeneous and nodular contour. No focal lesion seen. Gallbladder: sludge, wall mildly thickened at 0.4cm. No abnormal distention. Evidence for sonographic Flores's sign: no CBD: visualized portions wnl, limited by overlying bowel gas Right Kidney: wnl Moderate abdominal ascites. Fluid is seen within the 4 quadrants of the abdomen. IMPRESSION: 1. Cirrhotic morphology of the liver. 2. Moderate abdominal ascites within the 4 quadrants of the abdomen. 3. Nonspecific mild gallbladder wall thickening probably secondary to cirrhosis. There is gallbladder sludge. No abnormal hydropic change. Sonographic Flores's and is negative. 4. No biliary ductal dilatation.
[2020-02-28 15:01] LABS: Amorphous Sediment,Urine Occasional /hpf; Appearance,Urine Cloudy (Clear); Bacteria,Urine Rare /hpf; Bilirubin,Urine 1+ (Negative); Blood,Urine Negative (Negative); Calcium Oxalate Crystals,Urine Rare /hpf; Color,Urine Dark Yellow; Glucose,Urine (UA) Negative (Negative); Hyaline Casts,Urine 39 /lpf (0-2); Ketones,Urine Negative (Negative); Leukocyte Esterase,Urine Moderate (Negative); Mucus,Urine Rare /hpf; Nitrite,Urine Negative (Negative); PH, Urine 5.5 (5.0-8.0); Protein,Urine Negative (Negative); RBC,Urine 2 /hpf (0-5); Specific Gravity,Urine 1.019 (1.001-1.035); Squamous Epithelial Cell,Urine 1 /hpf (0-4); WBC,Urine 7 /hpf (0-5)
--- NOTE | 2020-02-28 15:50 | ED ---
General Adult HPI <Yanick Dubois - Last Filed: 02/28/20 16:29> - General Source: patient, EMS, RN notes reviewed Mode of arrival: EMS Limitations: no limitations <Dennis Osorio - Last Filed: 02/28/20 16:36> - General Chief complaint: Weakness Stated complaint: weakness Time Seen by Provider: 02/28/20 12:29 - History of Present Illness Initial comments: 49-year-old female with a past medical history of diabetes mellitus, hyperlipidemia, hypertension presents to the emergency room for a chief compla int of weakness. Patient had a hemorrhagic stroke in October and has had generalized weakness since. She was apparently supposed to receive rehabilitation but was unable to complete this secondary to insurance issues. Family member at bedside states that patient was unable to walk to the bathroom today due to his weakness. She reports she has bedsores on her buttock. Patient does receive paracenteses every other and is due in 2 days.Patient has no other complaints at this time including shortness of breath, chest pain, nausea or vomiting, headache, or visual changes. (Dennis Osorio) - Related Data Home Medications Medication Instructions Recorded Confirmed Sertraline [Zoloft] 200 mg PO DAILY 09/02/14 02/28/20 ARIPiprazole [Abilify] 20 mg PO DAILY 09/13/18 02/28/20 lamoTRIgine [LaMICtal] 25 mg PO BID 08/23/19 02/28/20 traZODone HCL 200 mg PO HS 10/31/19 02/28/20 Acetaminophen Tab [Tylenol] 650 mg PO Q12H PRN 12/12/19 02/28/20 Folic Acid 1 mg PO DAILY 12/12/19 02/28/20 INSULIN LISPRO (humaLOG) [humaLOG] See Protocol SQ AC-TID 12/12/19 02/28/20 Lactulose 20 gm PO DAILY 12/12/19 02/28/20 Furosemide [Lasix] 40 mg PO DAILY 02/24/20 02/28/20 Spironolactone 50 mg PO BID 02/24/20 02/28/20 Previous Rx's Medication Instructions Recorded Pantoprazole [Protonix] 40 mg PO AC-BID #60 moreno. 09/09/19 Potassium Chloride ER [K-Dur 10] 10 meq PO BID #0 12/12/19 LORazepam [Ativan] 1 mg PO DAILY PRN #5 tab 12/13/19 Zolpidem [Ambien] 10 mg PO HS #5 tab 12/13/19 Magnesium Oxide [Mag-Ox] 400 mg PO DAILY #30 tab 01/07/20 Cephalexin [Keflex] 500 mg PO Q8HR #21 cap 02/24/20 Collagenase [Santyl] 1 applic TOPICAL DAILY #1 tube 02/24/20 Allergies Allergy/AdvReac Type Severity Reaction Status Date / Time Penicillins Allergy Rash/Hives Verified 02/28/20 13:38 Sulfa (Sulfonamide Allergy Rash/Hives Verified 02/28/20 13:38 Antibiotics) erythromycin base AdvReac Abdominal Verified 02/28/20 13:38 Pain meperidine HCl [From Demerol] AdvReac Confusion/N Verified 02/28/20 13:38 ausea Review of Systems ROS Other: All systems not noted in ROS Statement are negative. <Yanick Dubois - Last Filed: 02/28/20 16:29> ROS Other: All systems not noted in ROS Statement are negative. <Dennis Osorio P - Last Filed: 02/28/20 16:36> ROS Statement: Those systems with pertinent positive or pertinent negative responses have been documented in the HPI. Past Medical History Past Medical History: Diabetes Mellitus, Hyperlipidemia, Hypertension, Liver Disease Additional Past Medical History / Comment(s): Fatty non alcholic liver disease - Acites, paracentesis every other . History of Any Multi-Drug Resistant Organisms: MRSA, VRE Date of last positivie culture/infection: 09/17/18 VRE 01/2010 MRSA MDRO Source:: VRE URINE/ MRSA ABDOMEN Past Surgical History: Section, Hysterectomy Additional Past Surgical History / Comment(s): Oophrarectomy, large volume paracentesis Past Anesthesia/Blood Transfusion Reactions: No Reported Reaction Past Psychological History: Bipolar, Depression Smoking Status: Never smoker Past Alcohol Use History: None Reported Past Drug Use History: None Reported - Past Family History Father Family Medical History: COPD, Hyperlipidemia, Hypertension, Renal Disease Mother Family Medical History: Hyperlipidemia, Hypertension <Dennis Osorio P - Last Filed: 02/28/20 16:36> General Exam Limitations: no limitations General appearance: alert, in no apparent distress Head exam: Present: atraumatic, normocephalic, normal inspection Eye exam: Present: normal appearance, PERRL, EOMI. Absent: scleral icterus, c onjunctival injection, periorbital swelling ENT exam: Present: normal exam, mucous membranes moist Neck exam: Present: normal inspection. Absent: tenderness, meningismus, lymphadenopathy Respiratory exam: Present: normal lung sounds bilaterally. Absent: respiratory distress, wheezes, rales, rhonchi, stridor Cardiovascular Exam: Present: regular rate, normal rhythm, normal heart sounds. Absent: systolic murmur, diastolic murmur, rubs, gallop, clicks GI/Abdominal exam: Present: soft, tenderness (Minimal generalized abdominal tenderness), normal bowel sounds. Absent: distended, guarding, rebound, rigid Rectal exam: Present: other (Patient has Stage II bedsores noted to the sacral area without evidence of purulent material or infection at this time.) <Dennis Osorio - Last Filed: 02/28/20 16:36> Course <Dennis Osorio - Last Filed: 02/28/20 16:36> Vital Signs 02/28/20 11:36 Temperature 98.9 F Pulse Rate 110 H Respiratory 18 Rate Blood Pressure 117/61 O2 Sat by Pulse 93 L Oximetry - Reevaluation(s) Reevaluation #1: 02/28/20 15:[address] Dubois at this time. (Dennis Osorio) EKG Findings - EKG Comments: EKG Findings:: Sinus tachycardia, ventricular rate 110, MO interval 166, QTc 479 <Dennis Osorio - Last Filed: 02/28/20 16:36> Medical Decision Making - Lab Data Result diagrams: 02/28/20 12:55 02/28/20 12:55 <Yanick Dubois - Last Filed: 02/28/20 16:29> - Lab Data Result diagrams: 02/28/20 12:55 02/28/20 12:55 <Dennis Osorio - Last Filed: 02/28/20 16:36> - Medical Decision Making Patient reevaluated and reexamined by myself, Dr. Dubois. Patient resting comfortably in bed. She does have moderate to severe abdominal ascites with mild tenderness. Chart review. I agree with PA 5 days. This includes diagnostic of dictation and treatment plan. Patient has chronic liver disease and has not been eating or drinking well over the past several days. Patient additionally has generalized weakness and difficulty taking care of herself. Patient will likely need placement. Case was discussed with Dr. Stuart, who will admit covering for Dr. Koo. (Yanick Dubois) Patient presents for generalized weakness as discussed in HPI. CBC shows a hemoglobin of 7.3 which does appear stable for patient. Blood cell count is normal at 9.5. Patient is evidence of hyponatremia and very slight hyperkalemia. Patient does also show evidence of prerenal azotemia consistent with dehydration. Patient reports she has not been eating or drinking much lately. Lactic acid of 3.1 is also likely related to dehydration. Patient has an elevated bilirubin of 4.4 which is about double what patient normally demonstrates her she does have a slightly thickened gallbladder wall with sludge however no specific right upper quadrant tenderness consistent with acute cholecystitis. CBD is normal. Urinalysis will be cultured. (Dennis Osorio) - Lab Data Lab Results 02/28/20 02/28/20 02/28/20 Range/Units 12:55 12:55 12:55 WBC 9.5 (3.8-10.6) k/uL RBC 3.15 L (3.80-5.40) m/uL Hgb 7.3 L (11.4-16.0) gm/dL Hct 25.6 L (34.0-46.0) % MCV 81.2 (80.0-100.0) fL MCH 23.3 L (25.0-35.0) pg MCHC 28.7 L (31.0-37.0) g/dL RDW 22.8 H (11.5-15.5) % Plt Count 82 L (150-450) k/uL Neutrophils % 87 % Lymphocytes % 5 % Monocytes % 6 % Eosinophils % 1 % Basophils % 0 % Neutrophils # 8.2 H (1.3-7.7) k/uL Lymphocytes # 0.5 L (1.0-4.8) k/uL Monocytes # 0.6 (0-1.0) k/uL Eosinophils # 0.1 (0-0.7) k/uL Basophils # 0.0 (0-0.2) k/uL Hypochromasia Marked Anisocytosis Moderate Microcytosis Slight PT 16.5 H (9.0-12.0) sec INR 1.7 H (<1.2) APTT 26.6 (22.0-30.0) sec Sodium (137-145) mmol/L Potassium (3.5-5.1) mmol/L Chloride (98-107) mmol/L Carbon Dioxide (22-30) mmol/L Anion Gap mmol/L BUN (7-17) mg/dL Creatinine (0.52-1.04) mg/dL Est GFR (CKD-EPI)AfAm (>60 ml/min/1.73 sqM) Est GFR (CKD-EPI)NonAf (>60 ml/min/1.73 sqM) Glucose (74-99) mg/dL Lactic Ac Sepsis Rflx Plasma Lactic Acid Mehul (0.7-2.0) mmol/L Calcium (8.4-10.2) mg/dL Magnesium (1.6-2.3) mg/dL Total Bilirubin (0.2-1.3) mg/dL AST (14-36) U/L ALT (4-34) U/L Alkaline Phosphatase (38-126) U/L Total Protein (6.3-8.2) g/dL Albumin (3.5-5.0) g/dL Urine Color Dark Yellow Urine Appearance Cloudy H (Clear) Urine pH 5.5 (5.0-8.0) Ur Specific [place] 1.019 (1.001-1.035) Urine Protein Negative (Negative) Urine Glucose (UA) Negative (Negative) Urine Ketones Negative (Negative) Urine Blood Negative (Negative) Urine Nitrite Negative (Negative) Urine Bilirubin 1+ H (Negative) Urine Urobilinogen 8.0 (<2.0) mg/dL Ur Leukocyte Esterase Moderate H (Negative) Urine RBC 2 (0-5) /hpf Urine WBC 7 H (0-5) /hpf Ur Squamous Epith Cells 1 (0-4) /hpf Calcium Oxalate Crystal Rare H (None) /hpf Amorphous Sediment Occasional H (None) /hpf Urine Bacteria Rare H (None) /hpf Hyaline Casts 39 H (0-2) /lpf Urine Mucus Rare H (None) /hpf 1102/28/20 02/28/20 Range/Units 12:55 12:55 14:02 WBC (3.8-10.6) k/uL RBC (3.80-5.40) m/uL Hgb (11.4-16.0) gm/dL Hct (34.0-46.0) % MCV (80.0-100.0) fL MCH (25.0-35.0) pg MCHC (31.0-37.0) g/dL RDW (11.5-15.5) % Plt Count (150-450) k/uL Neutrophils % % Lymphocytes % % Monocytes % % Eosinophils % % Basophils % % Neutrophils # (1.3-7.7) k/uL Lymphocytes # (1.0-4.8) k/uL Monocytes # (0-1.0) k/uL Eosinophils # (0-0.7) k/uL Basophils # (0-0.2) k/uL Hypochromasia Anisocytosis Microcytosis PT (9.0-12.0) sec INR (<1.2) APTT (22.0-30.0) sec Sodium 127 L (137-145) mmol/L Potassium 5.3 H (3.5-5.1) mmol/L Chloride 99 (98-107) mmol/L Carbon Dioxide 23 (22-30) mmol/L Anion Gap 5 mmol/L BUN 31 H (7-17) mg/dL Creatinine 1.39 H (0.52-1.04) mg/dL Est GFR (CKD-EPI)AfAm 52 (>60 ml/min/1.73 sqM) Est GFR (CKD-EPI)NonAf 45 (>60 ml/min/1.73 sqM) Glucose 157 H (74-99) mg/dL Lactic Ac Sepsis Rflx Y Plasma Lactic Acid Mehul 3.1 H* (0.7-2.0) mmol/L Calcium 8.2 L (8.4-10.2) mg/dL Magnesium 2.0 (1.6-2.3) mg/dL Total Bilirubin 4.4 H (0.2-1.3) mg/dL AST 43 H (14-36) U/L ALT 18 (4-34) U/L Alkaline Phosphatase 175 H (38-126) U/L Total Protein 7.3 (6.3-8.2) g/dL Albumin 2.5 L (3.5-5.0) g/dL Urine Color Urine Appearance (Clear) Urine pH (5.0-8.0) Ur Specific [place] (1.001-1.035) Urine Protein (Negative) Urine Glucose (UA) (Negative) Urine Ketones (Negative) Urine Blood (Negative) Urine Nitrite (Negative) Urine Bilirubin (Negative) Urine Urobilinogen (<2.0) mg/dL Ur Leukocyte Esterase (Negative) Urine RBC (0-5) /hpf Urine WBC (0-5) /hpf Ur Squamous Epith Cells (0-4) /hpf Calcium Oxalate Crystal (None) /hpf Amorphous Sediment (None) /hpf Urine Bacteria (None) /hpf Hyaline Casts (0-2) /lpf Urine Mucus (None) /hpf Disposition <Yanick Dubois - Last Filed: 02/28/20 16:29> Is patient prescribed a controlled substance at d/c from ED?: No Time of Disposition: 16:36 <Dennis Osorio - Last Filed: 02/28/20 16:36> Clinical Impression: Weakness, Dehydration, Hyperbilirubinemia, Hyponatremia Disposition: ADMITTED IP TO THIS HOSP Condition: Fair Referrals: Woodrow Richards [Primary Care Provider] - 1-2 days
--- NOTE | 2020-02-28 16:15 | CT ---
EXAMINATION TYPE: CT brain wo con DATE OF EXAM: 02/28/2020 COMPARISON: CT brain 11/14/2019 HISTORY: weakness CT DLP: 1096.4 mGycm. Automated Exposure Control for Dose Reduction was Utilized. TECHNIQUE: CT scan of the head is performed without contrast. FINDINGS: There is no acute intracranial hemorrhage, mass effect, or midline shift identified. The ventricles and sulci are within normal limits in size. The globes are intact and the visualized sin uses are clear. There are cerebral vascular calcifications. IMPRESSION: No acute intracranial hemorrhage, mass effect, or midline shift is seen.
[2020-02-28] MEDS ORDERED: NALOXONE 0.4 MG/ML 1 ML VIAL IV PRN ×2 (16:32→16:41)
[2020-02-28] MEDS ORDERED: ACETAMINOPHEN TAB 325 MG TAB PO PRN (16:41)
--- NOTE | 2020-02-28 17:54 | P.HPIM ---
History of Present Illness H&P Date: 02/28/20 Chief Complaint: Generalized weakness 49-year-old woman with past medical history of hypertension, hyperlipidemia, diabetes type 2, nonalcoholic fatty liver cirrhosis presented with increasing generalized weakness and falls. Patient presents with her mother and both provide parts of the history. Patient and mother tell me that patient has been increasingly weak across the last year, but particularly has been bad over the last several weeks. Today, she can barely walk due to this weakness. In the past several weeks, she's had multiple falls in which her legs gave out due to increasing weakness. Her mother tells me it takes her a while to get out of bed. In October of this year, patient had one of these falls which resulted in a head bleed and she was admitted to the hospital, and a short stint in rehab following this hospitalization. She hasn't much improved since this time, has had ongoing falls. She has not however hit her head or had uncontrollable bleed ing since that time. She follows every other week with interventional radiology for scheduled paracenteses. Her next scheduled paracentesis was due this . Patient reports to me that she feels tense in her belly with abdominal pain. Review of systems is also positive for lower extremity weakness left greater than right, weakness, and dark urine. Negative for: Fevers, chills, nausea, vomiting, abdominal pain, chest pain, palpitations, shortness of breath, syncope, presyncope, dysuria, dyschezia. On arrival patient is afebrile, 105/65, heart rate 102, 97% on room air. CBC was markable for anemia to 7.3, which is her baseline, platelets of 82 which is her baseline. Chemistries are remarkable for hyponatremia to 127, hyperkalemia to 5.3, when necessary of 31, creatinine 1.4, lactic acid of 3.1. LFTs were remarkable for hyper-bilirubinemia and 4.4, AST of 43, ALT of 18, alk phos of 175, hypoalbuminemia 2.5. UA is cloudy with 1+ bilirubinemia, moderate leukocyte esterase, 7 WBCs, rare urine bacteria, 39 hyaline casts. Chest x-ray has low inspiratory volumes, right lower lung atelectasis. Head CT was negative for acute intracranial bleed. EKG shows sinus tachycardia without ischemic changes. Urine culture from previous visit showed pansensitive E. coli for which she is on cephalexin. Review of Systems All Systems reviewed and pertinent positives and negatives noted in HPI, all other symptoms are negative Past Medical History Past Medical History: Diabetes Mellitus, Hyperlipidemia, Hypertension, Liver Disease Additional Past Medical History / Comment(s): Fatty non alcholic liver disease - Acites, paracentesis every other . History of Any Multi-Drug Resistant Organisms: MRSA, VRE Date of last positivie culture/infection: 09/17/18 VRE 01/2010 MRSA MDRO Source:: VRE URINE/ MRSA ABDOMEN Past Surgical History: Section, Hysterectomy Additional Past Surgical History / Comment(s): Oophrarectomy, large volume paracentesis Past Anesthesia/Blood Transfusion Reactions: No Reported Reaction Past Psychological History: Bipolar, Depression Smoking Status: Never smoker Past Alcohol Use History: None Reported Past Drug Use History: None Reported - Past Family History Father Family Medical History: COPD, Hyperlipidemia, Hypertension, Renal Disease Mother Family Medical History: Hyperlipidemia, Hypertension Medications and Allergies Home Medications Medication Instructions Recorded Confirmed Type Sertraline [Zoloft] 200 mg PO DAILY 09/02/14 02/28/20 History ARIPiprazole [Abilify] 20 mg PO DAILY 09/13/18 02/28/20 History lamoTRIgine [LaMICtal] 25 mg PO BID 08/23/19 02/28/20 History Pantoprazole [Protonix] 40 mg PO AC-BID #60 tablet. 09/09/19 02/28/20 Rx traZODone HCL 200 mg PO HS 10/31/19 02/28/20 History Acetaminophen Tab [Tylenol] 650 mg PO Q12H PRN 12/12/19 02/28/20 History Folic Acid 1 mg PO DAILY 12/12/19 02/28/20 History INSULIN LISPRO (humaLOG) [humaLOG] See Protocol SQ AC-TID 12/12/19 02/28/20 History Lactulose 20 gm PO DAILY 12/12/19 02/28/20 History Potassium Chloride ER [K-Dur 10] 10 meq PO BID #0 12/12/19 02/28/20 Rx LORazepam [Ativan] 1 mg PO DAILY PRN #5 tab 12/13/19 02/28/20 Rx Zolpidem [Ambien] 10 mg PO HS #5 tab 12/13/19 02/28/20 Rx Magnesium Oxide [Mag-Ox] 400 mg PO DAILY #30 tab 01/07/20 02/28/20 Rx Cephalexin [Keflex] 500 mg PO Q8HR #21 cap 02/24/20 02/28/20 Rx Collagenase [Santyl] 1 applic TOPICAL DAILY #1 tube 02/24/20 02/28/20 Rx Furosemide [Lasix] 40 mg PO DAILY 02/24/20 02/28/20 History Spironolactone 50 mg PO BID 02/24/20 02/28/20 History Allergies Allergy/AdvReac Type Severity Reaction Status Date / Time Penicillins Allergy Rash/Hives Verified 02/28/20 13:38 Sulfa (Sulfonamide Allergy Rash/Hives Verified 02/28/20 13:38 Antibiotics) erythromycin base AdvReac Abdominal Verified 02/28/20 13:38 Pain meperidine HCl [From Demerol] AdvReac Confusion/N Verified 02/28/20 13:38 ausea Physical Exam Osteopathic Statement: *. No significant issues noted on an osteopathic structural exam other than those noted in the History and Physical/Consult. Vitals: Vital Signs Temp Pulse Resp BP Pulse Ox 02/28/20 16:39 98.0 F 102 H 17 105/65 97 02/28/20 11:36 98.9 F 110 H 18 117/61 93 L Intake and Output 02/28/20 02/28/20 02/28/20 06:59 14:59 22:59 Other: Weight 117.934 kg Gen: awake, alert HEENT: normocephalic, atraumatic, good hearing acuity, moist mucous membranes Resp: CTAB, good air exchange, no accessory muscle use, no wheezes, crackles, rhonchi CVS: good distal perfusion x 4, RRR, no murmurs, clicks, gallops GI: soft, NTTP, ND : no SPT, no CVAT, parra catheter not present MSK: +pitting edema, no clubbing, posterior bedsores Neuro: non-focal, no sensory deficits, appropriate tone Psych: cooperative, euthymic mood Results CBC & Chem 7: 02/28/20 12:55 02/28/20 12:55 Labs: Abnormal Lab Results - Last 24 Hours (Table) 02/28/20 02/28/20 02/28/20 Range/Units 12:55 12:55 12:55 RBC 3.15 L (3.80-5.40) m/uL Hgb 7.3 L (11.4-16.0) gm/dL Hct 25.6 L (34.0-46.0) % MCH 23.3 L (25.0-35.0) pg MCHC 28.7 L (31.0-37.0) g/dL RDW 22.8 H (11.5-15.5) % Plt Count 82 L (150-450) k/uL Neutrophils # 8.2 H (1.3-7.7) k/uL Lymphocytes # 0.5 L (1.0-4.8) k/uL PT 16.5 H (9.0-12.0) sec INR 1.7 H (<1.2) Sodium (137-145) mmol/L Potassium (3.5-5.1) mmol/L BUN (7-17) mg/dL Creatinine (0.52-1.04) mg/dL Glucose (74-99) mg/dL Plasma Lactic Acid Mehul (0.7-2.0) mmol/L Calcium (8.4-10.2) mg/dL Total Bilirubin (0.2-1.3) mg/dL AST (14-36) U/L Alkaline Phosphatase (38-126) U/L Albumin (3.5-5.0) g/dL Urine Appearance Cloudy H (Clear) Urine Bilirubin 1+ H (Negative) Ur Leukocyte Esterase Moderate H (Negative) Urine WBC 7 H (0-5) /hpf Calcium Oxalate Crystal Rare H (None) /hpf Amorphous Sediment Occasional H (None) /hpf Urine Bacteria Rare H (None) /hpf Hyaline Casts 39 H (0-2) /lpf Urine Mucus Rare H (None) /hpf 02/28/20 02/28/20 Range/Units 12:55 12:55 RBC (3.80-5.40) m/uL Hgb (11.4-16.0) gm/dL Hct (34.0-46.0) % MCH (25.0-35.0) pg MCHC (31.0-37.0) g/dL RDW (11.5-15.5) % Plt Count (150-450) k/uL Neutrophils # (1.3-7.7) k/uL Lymphocytes # (1.0-4.8) k/uL PT (9.0-12.0) sec INR (<1.2) Sodium 127 L (137-145) mmol/L Potassium 5.3 H (3.5-5.1) mmol/L BUN 31 H (7-17) mg/dL Creatinine 1.39 H (0.52-1.04) mg/dL Glucose 157 H (74-99) mg/dL Plasma Lactic Acid Mehul 3.1 H* (0.7-2.0) mmol/L Calcium 8.2 L (8.4-10.2) mg/dL Total Bilirubin 4.4 H (0.2-1.3) mg/dL AST 43 H (14-36) U/L Alkaline Phosphatase 175 H (38-126) U/L Albumin 2.5 L (3.5-5.0) g/dL Urine Appearance (Clear) Urine Bilirubin (Negative) Ur Leukocyte Esterase (Negative) Urine WBC (0-5) /hpf Calcium Oxalate Crystal (None) /hpf Amorphous Sediment (None) /hpf Urine Bacteria (None) /hpf Hyaline Casts (0-2) /lpf Urine Mucus (None) /hpf Assessment and Plan Assessment: 1. Generalized weakness 2. Acute kidney injury secondary to Acute tubular necrosis 3. Decompensated liver cirrhosis with ascites and thrombocytopenia secondary to splenic sequestration 4. Complicated urinary tract infection 5. Hyper-tension, essential 6. Hyperlipidemia 7. Type 2 diabetes 49-year-old woman with a medical history of liver cirrhosis, hypertension, hyperlipidemia, diabetes presented with generalized weakness in the context of acute kidney injury with acute tubular necrosis secondary to both diuretic use as well as comfort. Urinary tract infection in the background of decompensated liver cirrhosis. Plan: - admit to telemetry - I/Os, daily weights - hold home diuretics: lasix/spironolactone - NS @ 75cc/hr - tylenol PRN for pain - GI consult, appreciate recs - IR consult for paracentesis - nephrology consult for ATN - ceftriaxone 1g daily for UTI - f/u UCx - patient is not on a statin - ERIN frank SSI PRN - hold home potassium - continue home abilify, lactulose, lamotrigine, sertraline, trazodone, zolpidem - however, if no improvement in weakness with IVF and PT/OT, may need to taper off some of these meds - continue BID PPI - PT/OT consult - CM to plan for SNF placement for LIZZ Full Code DVT PPx: Heparin TID DPOA/NOK: Mother
[2020-02-28 18:12] LABS: Glucose,Whole Blood 142 mg/dL (75-99)
[2020-02-28] MEDS: INSULIN ASPART (NovoLOG) 100 UNIT/ML VIAL SQ SCH ×2 (18:24→20:38)
[2020-02-28] MEDS: SODIUM CHLORIDE 0.9% 1,000 ML IV SCH (18:26)
[2020-02-28 19:36] LABS: Glucose,Whole Blood 148 mg/dL (75-99)
[2020-02-28] MEDS: traZODone HCL 100 MG TAB PO SCH (20:37)
[2020-02-28] MEDS: lamoTRIgine 25 MG TAB PO SCH (20:38)
[2020-02-28] MEDS: HYDROcodone/APAP 5-325MG 1 EACH TAB PO PRN (22:24)
[2020-02-28] MEDS: ZOLPIDEM 10 MG TAB PO SCH (22:34)
[2020-02-29] MEDS: HEPARIN SODIUM,PORCINE 5,000 UNIT/ML 1 ML VIAL SQ SCH ×3 (01:26→16:55)
[2020-02-29 04:37] LABS: Anisocytosis Moderate; Basophils % (A) 0 %; Eosinophils # (A) 0.1 k/uL (0-0.7); Eosinophils % (A) 1 %; HCT 21.9 % (34.0-46.0); Hypochromasia Marked; Lymphocytes # (A) 0.6 k/uL (1.0-4.8); Lymphocytes % (A) 10 %; MCH 23.9 pg (25.0-35.0); MCHC 29.6 g/dL (31.0-37.0); MCV 80.7 fL (80.0-100.0); Mean Platelet Volume 7.5; Microcytosis Moderate; Monocytes # (A) 0.5 k/uL (0-1.0); Monocytes % (A) 8 %; Neutrophils # (A) 4.4 k/uL (1.3-7.7); Neutrophils % (A) 79 %; RBC 2.71 m/uL (3.80-5.40); RDW 23.1 % (11.5-15.5); WBC 5.5 k/uL (3.8-10.6)
[2020-02-29] MEDS: HYDROcodone/APAP 5-325MG 1 EACH TAB PO PRN ×3 (04:39→20:07)
[2020-02-29 04:41] LABS: Platelet Count 75 k/uL (150-450)
[2020-02-29 04:44] LABS: HGB 6.5 gm/dL (11.4-16.0)
[2020-02-29 04:48] LABS: INR 1.7 (<1.2); Prothrombin Time 16.8 sec (9.0-12.0)
[2020-02-29 07:22] LABS: Glucose,Whole Blood 112 mg/dL (75-99)
[2020-02-29] MEDS: INSULIN ASPART (NovoLOG) 100 UNIT/ML VIAL SQ SCH ×3 (08:15→17:08)
[2020-02-29] MEDS: SODIUM CHLORIDE 0.9% 1,000 ML IV SCH ×2 (08:35→22:11)
[2020-02-29] MEDS: SERTRALINE 100 MG TAB PO SCH (08:36)
[2020-02-29] MEDS: MAGNESIUM OXIDE 400 MG TAB PO SCH (08:36)
[2020-02-29] MEDS: lamoTRIgine 25 MG TAB PO SCH ×2 (08:36→22:11)
[2020-02-29] MEDS: FOLIC ACID 1 MG TAB PO SCH (08:36)
[2020-02-29] MEDS: LACTULOSE 20 GM/30 ML CUP PO SCH ×2 (08:36→13:19)
[2020-02-29] MEDS: COLLAGENASE 250 UNIT/GM OINTMENT 30 GM TUBE TOPICAL SCH (08:37)
[2020-02-29] MEDS: PANTOPRAZOLE 40 MG TABLET PO SCH ×2 (08:38→18:06)
[2020-02-29] MEDS ORDERED: cefTRIAXone IN SWFI 1,000 MG/10 ML SYRINGE IVP SCH (09:00)
[2020-02-29 10:13] LABS: African American GFR (CKD) 51.7 (60.0-200.0); Albumin 2.1 g/dL (3.80-4.90); Albumin/Globulin Ratio 0.54 (1.60-3.17); Anion Gap 3.8 mmol/L (4.00-12.00); BUN/Creat Ratio 22.86 Ratio (12.00-20.00); Calcium 7.8 mg/dL (8.7-10.3); Carbon Dioxide 25.2 mmol/L (21.6-31.8); Globulin 3.9 g/dL (1.6-3.3); Magnesium 1.9 mg/dL (1.5-2.4); Non-African American GFR(CKD) 44.6 (60.0-200.0); Potassium 5.2 mmol/L (3.5-5.5); Total Bilirubin 3.2 mg/dL (0.2-1.2)
[2020-02-29 10:41] LABS: Reticulocyte % 4.2 % (0.5-2.0)
[2020-02-29 11:23] LABS: Glucose,Whole Blood 177 mg/dL (75-99)
--- NOTE | 2020-02-29 12:00 | P.PN ---
Subjective Progress Note Date: 02/29/20 Dropped blood count to 6.5 today and night provider placed blood transfusion orders. Pt still feels weak/tired. Objective - Vital Signs Vital signs: Vital Signs Temp 98.2 F 02/29/20 11:42 Pulse 95 02/29/20 11:42 Resp 16 02/29/20 11:42 BP 106/61 02/29/20 11:42 Pulse Ox 95 02/29/20 11:42 Intake & Output 02/28/20 02/29/20 02/29/20 18:59 06:59 18:59 Intake Total 310 Balance 310 Weight 117.934 kg Intake: Blood Product 310 Rc As-1 Unit 310 [id number] Other: Voiding Method Bedpan Incontinent # Voids 0 # Bowel Movements 0 - Exam Gen: awake, alert HEENT: normocephalic, atraumatic, good hearing acuity, moist mucous membranes Resp: CTAB, good air exchange, no accessory muscle use, no wheezes, crackles, r [place] CVS: good distal perfusion x 4, RRR, no murmurs, clicks, gallops GI: soft, NTTP, ND : no SPT, no CVAT, parra catheter not present MSK: +pitting edema, no clubbing, posterior bedsores Neuro: non-focal, no sensory deficits, appropriate tone Psych: cooperative, euthymic mood - Labs CBC & Chem 7: 02/29/20 04:18 02/29/20 04:18 Labs: Abnormal Lab Results - Last 24 Hours (Table) 02/28/20 02/28/20 02/28/20 Range/Units 12:55 12:55 12:55 RBC 3.15 L (3.80-5.40) m/uL Hgb 7.3 L (11.4-16.0) gm/dL Hct 25.6 L (34.0-46.0) % MCH 23.3 L (25.0-35.0) pg MCHC 28.7 L (31.0-37.0) g/dL RDW 22.8 H (11.5-15.5) % Plt Count 82 L (150-450) k/uL Neutrophils # 8.2 H (1.3-7.7) k/uL Lymphocytes # 0.5 L (1.0-4.8) k/uL Retic Count (0.5-2.0) % PT 16.5 H (9.0-12.0) sec INR 1.7 H (<1.2) Sodium (137-145) mmol/L Potassium (3.5-5.1) mmol/L Anion Gap (4.00-12.00) mmol/L BUN (7-17) mg/dL Creatinine (0.52-1.04) mg/dL Est GFR (CKD-EPI)AfAm (60.0-200.0) Est GFR (CKD-EPI)NonAf (60.0-200.0) BUN/Creatinine Ratio (12.00-20.00) Ratio Glucose (74-99) mg/dL POC Glucose (mg/dL) (75-99) mg/dL Plasma Lactic Acid Mehul (0.7-2.0) mmol/L Calcium (8.4-10.2) mg/dL Total Bilirubin (0.2-1.3) mg/dL AST (14-36) U/L Alkaline Phosphatase (38-126) U/L Total Protein (6.2-8.2) g/dL Albumin (3.5-5.0) g/dL Globulin (1.6-3.3) g/dL Albumin/Globulin Ratio (1.60-3.17) g/dL Urine Appearance Cloudy H (Clear) Urine Bilirubin 1+ H (Negative) Ur Leukocyte Esterase Moderate H (Negative) Urine WBC 7 H (0-5) /hpf Calcium Oxalate Crystal Rare H (None) /hpf Amorphous Sediment Occasional H (None) /hpf Urine Bacteria Rare H (None) /hpf Hyaline Casts 39 H (0-2) /lpf Urine Mucus Rare H (None) /hpf Crossmatch 02/28/20 02/28/20 02/28/20 Range/Units 12:55 12:55 17:20 RBC (3.80-5.40) m/uL Hgb (11.4-16.0) gm/dL Hct (34.0-46.0) % MCH (25.0-35.0) pg MCHC (31.0-37.0) g/dL RDW (11.5-15.5) % Plt Count (150-450) k/uL Neutrophils # (1.3-7.7) k/uL Lymphocytes # (1.0-4.8) k/uL Retic Count (0.5-2.0) % PT (9.0-12.0) sec INR (<1.2) Sodium 127 L (137-145) mmol/L Potassium 5.3 H (3.5-5.1) mmol/L Anion Gap (4.00-12.00) mmol/L BUN 31 H (7-17) mg/dL Creatinine 1.39 H (0.52-1.04) mg/dL Est GFR (CKD-EPI)AfAm (60.0-200.0) Est GFR (CKD-EPI)NonAf (60.0-200.0) BUN/Creatinine Ratio (12.00-20.00) Ratio Glucose 157 H (74-99) mg/dL POC Glucose (mg/dL) (75-99) mg/dL Plasma Lactic Acid Mehul 3.1 H* 2.7 H* (0.7-2.0) mmol/L Calcium 8.2 L (8.4-10.2) mg/dL Total Bilirubin 4.4 H (0.2-1.3) mg/dL AST 43 H (14-36) U/L Alkaline Phosphatase 175 H (38-126) U/L Total Protein (6.2-8.2) g/dL Albumin 2.5 L (3.5-5.0) g/dL Globulin (1.6-3.3) g/dL Albumin/Globulin Ratio (1.60-3.17) g/dL Urine Appearance (Clear) Urine Bilirubin (Negative) Ur Leukocyte Esterase (Negative) Urine WBC (0-5) /hpf Calcium Oxalate Crystal (None) /hpf Amorphous Sediment (None) /hpf Urine Bacteria (None) /hpf Hyaline Casts (0-2) /lpf Urine Mucus (None) /hpf Crossmatch 02/28/20 02/28/20 02/28/20 Range/Units 18:10 19:35 20:17 RBC (3.80-5.40) m/uL Hgb (11.4-16.0) gm/dL Hct (34.0-46.0) % MCH (25.0-35.0) pg MCHC (31.0-37.0) g/dL RDW (11.5-15.5) % Plt Count (150-450) k/uL Neutrophils # (1.3-7.7) k/uL Lymphocytes # (1.0-4.8) k/uL Retic Count (0.5-2.0) % PT (9.0-12.0) sec INR (<1.2) Sodium (137-145) mmol/L Potassium (3.5-5.1) mmol/L Anion Gap (4.00-12.00) mmol/L BUN (7-17) mg/dL Creatinine (0.52-1.04) mg/dL Est GFR (CKD-EPI)AfAm (60.0-200.0) Est GFR (CKD-EPI)NonAf (60.0-200.0) BUN/Creatinine Ratio (12.00-20.00) Ratio Glucose (74-99) mg/dL POC Glucose (mg/dL) 142 H 148 H (75-99) mg/dL Plasma Lactic Acid Mehul 2.2 H* (0.7-2.0) mmol/L Calcium (8.4-10.2) mg/dL Total Bilirubin (0.2-1.3) mg/dL AST (14-36) U/L Alkaline Phosphatase (38-126) U/L Total Protein (6.2-8.2) g/dL Albumin (3.5-5.0) g/dL Globulin (1.6-3.3) g/dL Albumin/Globulin Ratio (1.60-3.17) g/dL Urine Appearance (Clear) Urine Bilirubin (Negative) Ur Leukocyte Esterase (Negative) Urine WBC (0-5) /hpf Calcium Oxalate Crystal (None) /hpf Amorphous Sediment (None) /hpf Urine Bacteria (None) /hpf Hyaline Casts (0-2) /lpf Urine Mucus (None) /hpf Crossmatch 02/29/20 02/29/20 02/29/20 Range/Units 04:18 04:18 04:18 RBC 2.71 L (3.80-5.40) m/uL Hgb 6.5 L* (11.4-16.0) gm/dL Hct 21.9 L (34.0-46.0) % MCH 23.9 L (25.0-35.0) pg MCHC 29.6 L (31.0-37.0) g/dL RDW 23.1 H (11.5-15.5) % Plt Count 75 L (150-450) k/uL Neutrophils # (1.3-7.7) k/uL Lymphocytes # 0.6 L (1.0-4.8) k/uL Retic Count (0.5-2.0) % PT 16.8 H (9.0-12.0) sec INR 1.7 H (<1.2) Sodium 128 L (137-145) mmol/L Potassium (3.5-5.1) mmol/L Anion Gap 3.80 L (4.00-12.00) mmol/L BUN 32.0 H (7-17) mg/dL Creatinine (0.52-1.04) mg/dL Est GFR (CKD-EPI)AfAm 51.7 L (60.0-200.0) Est GFR (CKD-EPI)NonAf 44.6 L (60.0-200.0) BUN/Creatinine Ratio 22.86 H (12.00-20.00) Ratio Glucose 121 H (74-99) mg/dL POC Glucose (mg/dL) (75-99) mg/dL Plasma Lactic Acid Mehul (0.7-2.0) mmol/L Calcium 7.8 L (8.4-10.2) mg/dL Total Bilirubin 3.2 H (0.2-1.3) mg/dL AST 39 H (14-36) U/L Alkaline Phosphatase 150 H (38-126) U/L Total Protein 6.0 L (6.2-8.2) g/dL Albumin 2.10 L (3.5-5.0) g/dL Globulin 3.9 H (1.6-3.3) g/dL Albumin/Globulin Ratio 0.54 L (1.60-3.17) g/dL Urine Appearance (Clear) Urine Bilirubin (Negative) Ur Leukocyte Esterase (Negative) Urine WBC (0-5) /hpf Calcium Oxalate Crystal (None) /hpf Amorphous Sediment (None) /hpf Urine Bacteria (None) /hpf Hyaline Casts (0-2) /lpf Urine Mucus (None) /hpf Crossmatch 02/29/20 02/29/20 02/29/20 Range/Units 04:18 05:19 07:21 RBC (3.80-5.40) m/uL Hgb (11.4-16.0) gm/dL Hct (34.0-46.0) % MCH (25.0-35.0) pg MCHC (31.0-37.0) g/dL RDW (11.5-15.5) % Plt Count (150-450) k/uL Neutrophils # (1.3-7.7) k/uL Lymphocytes # (1.0-4.8) k/uL Retic Count 4.2 H (0.5-2.0) % PT (9.0-12.0) sec INR (<1.2) Sodium (137-145) mmol/L Potassium (3.5-5.1) mmol/L Anion Gap (4.00-12.00) mmol/L BUN (7-17) mg/dL Creatinine (0.52-1.04) mg/dL Est GFR (CKD-EPI)AfAm (60.0-200.0) Est GFR (CKD-EPI)NonAf (60.0-200.0) BUN/Creatinine Ratio (12.00-20.00) Ratio Glucose (74-99) mg/dL POC Glucose (mg/dL) 112 H (75-99) mg/dL Plasma Lactic Acid Mehul (0.7-2.0) mmol/L Calcium (8.4-10.2) mg/dL Total Bilirubin (0.2-1.3) mg/dL AST (14-36) U/L Alkaline Phosphatase (38-126) U/L Total Protein (6.2-8.2) g/dL Albumin (3.5-5.0) g/dL Globulin (1.6-3.3) g/dL Albumin/Globulin Ratio (1.60-3.17) g/dL Urine Appearance (Clear) Urine Bilirubin (Negative) Ur Leukocyte Esterase (Negative) Urine WBC (0-5) /hpf Calcium Oxalate Crystal (None) /hpf Amorphous Sediment (None) /hpf Urine Bacteria (None) /hpf Hyaline Casts (0-2) /lpf Urine Mucus (None) /hpf Crossmatch See Detail 02/29/20 Range/Units 11:20 RBC (3.80-5.40) m/uL Hgb (11.4-16.0) gm/dL Hct (34.0-46.0) % MCH (25.0-35.0) pg MCHC (31.0-37.0) g/dL RDW (11.5-15.5) % Plt Count (150-450) k/uL Neutrophils # (1.3-7.7) k/uL Lymphocytes # (1.0-4.8) k/uL Retic Count (0.5-2.0) % PT (9.0-12.0) sec INR (<1.2) Sodium (137-145) mmol/L Potassium (3.5-5.1) mmol/L Anion Gap (4.00-12.00) mmol/L BUN (7-17) mg/dL Creatinine (0.52-1.04) mg/dL Est GFR (CKD-EPI)AfAm (60.0-200.0) Est GFR (CKD-EPI)NonAf (60.0-200.0) BUN/Creatinine Ratio (12.00-20.00) Ratio Glucose (74-99) mg/dL POC Glucose (mg/dL) 177 H (75-99) mg/dL Plasma Lactic Acid Mehul (0.7-2.0) mmol/L Calcium (8.4-10.2) mg/dL Total Bilirubin (0.2-1.3) mg/dL AST (14-36) U/L Alkaline Phosphatase (38-126) U/L Total Protein (6.2-8.2) g/dL Albumin (3.5-5.0) g/dL Globulin (1.6-3.3) g/dL Albumin/Globulin Ratio (1.60-3.17) g/dL Urine Appearance (Clear) Urine Bilirubin (Negative) Ur Leukocyte Esterase (Negative) Urine WBC (0-5) /hpf Calcium Oxalate Crystal (None) /hpf Amorphous Sediment (None) /hpf Urine Bacteria (None) /hpf Hyaline Casts (0-2) /lpf Urine Mucus (None) /hpf Crossmatch Assessment and Plan Assessment: 1. Generalized weakness 2. Acute kidney injury secondary to Acute tubular necrosis 3. Decompensated liver cirrhosis with ascites and thrombocytopenia secondary to splenic sequestration 4. Complicated urinary tract infection 5. Hyper-tension, essential 6. Hyperlipidemia 7. Type 2 diabetes 49-year-old woman with a medical history of liver cirrhosis, hypertension, hyperlipidemia, diabetes presented with generalized weakness in the context of acute kidney injury with acute tubular necrosis secondary to both diuretic use as well as comfort. Urinary tract infection in the background of decompensated liver cirrhosis. Plan: - admit to telemetry - I/Os, daily weights - hold home diuretics: lasix/spironolactone - NS @ 75cc/hr - tylenol PRN for pain - GI consult, appreciate recs - IR consult for paracentesis - nephrology consult for ATN - ceftriaxone 1g daily for UTI - f/u UCx - patient is not on a statin - accuchecks, LD SSI PRN - hold home potassium - continue home abilify, lactulose, lamotrigine, sertraline, trazodone, zolpidem - however, if no improvement in weakness with IVF and PT/OT, may need to taper off some of these meds - continue BID PPI - Hgb goal > 7; s/p 1U PRBC on 02/28 - PT/OT consult - CM to plan for SNF placement for LIZZ Full Code DVT PPx: Heparin TID DPOA/NOK: Mother
--- NOTE | 2020-02-29 12:45 | US ---
EXAMINATION TYPE: US kidneys/renal and bladder DATE OF EXAM: 02/29/2020 COMPARISON: NONE CLINICAL HISTORY: ALESSIA. new admit, large habitus, ascites, abn kidney labs EXAM MEASUREMENTS: Right Kidney: 9.0 x 4.3 x 4.1 cm Left Kidney: 11.2 x 4.5 x 4.9 cm Right Kidney: limited views due to bowel gas, habitus and ascites Left Kidney: limited views due to bowel gas, habitus and ascites Bladder: not seen IMPRESSION: 1. Ascites. 2. Limited assessment due to overlying bowel gas, body habitus and ascites with no obvious hydronephr osis or nephrolithiasis. Right kidney somewhat diminutive relative to the left, correlate for chronic medical renal disease.
--- NOTE | 2020-02-29 15:35 | CONS ---
CONSULTATION REASON FOR CONSULT: Hyponatremia. HISTORY OF PRESENT ILLNESS: Patient is a 49-year-old female who has a history of hypertension, hyperlipidemia, type 2 diabetes, history of liver cirrhosis secondary to nonalcoholic fatty liver disease. She was admitted to the hospital with increased weakness. The patient has also had multiple falls at home. She has not been able to get out of bed. She denies any active bleeding or significant diarrhea, nausea, vomiting. Patient's serum sodium was 127 mEq/L on admission. She is maintained on normal saline, repeat sodium was 128. 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 PAST SURGICAL HISTORY: , hysterectomy, oophorectomy, large volume paracentesis. SOCIAL HISTORY: Negative for smoking, drug abuse or alcohol abuse. MEDICATIONS: Prior to admission included Zoloft, Abilify, Lamictal, Protonix, Tylenol, trazodone, insulin, potassium, Ativan, lactulose, Keflex, magnesium, Ambien, santal, Lasix, spironolactone. ALLERGIES: Include PENICILLIN, SULFA, ERYTHROMYCIN, DEMEROL. REVIEW OF SYSTEMS: As per HPI. Other systems negative. PHYSICAL EXAMINATION: Patient is comfortable, awake, not in any acute distress, she is lethargic but able to answer questions appropriately. Blood pressure was 108/61. Previous blood pressure 97/52, heart rate 98 per minute, she is afebrile. Examination of the heart S1, S2. Examination of the lungs, bilateral breath sounds are heard. Abdomen is soft, nontender. Examination lower extremities. Abdomen is soft, obese, nontender. Examination of the lower extremities shows no significant edema. Chronic skin changes noted. [employer]IST[employer] exam shows patient moving all 4 extremities. LABS: Show hemoglobin 6.5 g/dL, white cell count 5.5, sodium 128, potassium 5.2, CO2 is 25, BUN of 32, creatinine 1.4 mg/dL. Previous creatinine 1.1 on 02/16/2020. Previous sodium was 131 on 02/16/2020. UA shows 1+ bilirubin, no blood or protein noted. WBC 7. ASSESSMENT: 1. Acute kidney injury, mostly associated with hypotension hypoperfusion as well as severe anemia with hemoglobin of 6.5. Currently maintained on IV fluids. Urine output. The patient has been voiding. We need to check a postvoid residual, rule out urine retention. There are no nephrotoxic agents on board at this time. I will check an ultrasound of the kidneys. 2. Hyponatremia which appears to be hypovolemic. Currently maintained on normal saline, somewhat improved. I will repeat a serum sodium this afternoon. 3. History of chronic liver disease secondary to non alcoholic fatty liver with a history of recurrent ascites. 4. Anemia, no active bleeding noted, being transfused packed RBCs, check iron profile if not done yet. PLAN: Continue with saline, repeat sodium now. Encourage increased oral intake and repeat labs again tomorrow morning. Check ultrasound of the kidneys. Thank you for this consultation. Will continue to follow the patient with you during her hospitalization. MMODL / IJN: [id number] /
[2020-02-29 16:48] LABS: % Iron Saturation 5.7 (12.00-45.00)
[2020-02-29 17:05] LABS: Glucose,Whole Blood 115 mg/dL (75-99)
[2020-02-29] MEDS: ZOLPIDEM 10 MG TAB PO SCH (20:06)
[2020-02-29] MEDS: traZODone HCL 100 MG TAB PO SCH (20:07)
[2020-02-29 20:13] LABS: Glucose,Whole Blood 145 mg/dL (75-99)
[2020-03-01] MEDS: HEPARIN SODIUM,PORCINE 5,000 UNIT/ML 1 ML VIAL SQ SCH ×2 (01:08→09:44)
[2020-03-01] MEDS: HYDROcodone/APAP 5-325MG 1 EACH TAB PO PRN ×3 (04:49→21:42)
[2020-03-01 06:46] LABS: Glucose,Whole Blood 137 mg/dL (75-99)
[2020-03-01 07:44] LABS: Anisocytosis Moderate; Basophils % (A) 0 %; Eosinophils # (A) 0.1 k/uL (0-0.7); Eosinophils % (A) 1 %; HGB 7.6 gm/dL (11.4-16.0); Hypochromasia Marked; Lymphocytes # (A) 0.4 k/uL (1.0-4.8); Lymphocytes % (A) 6 %; MCH 25.2 pg (25.0-35.0); MCHC 30.3 g/dL (31.0-37.0); MCV 83.1 fL (80.0-100.0); Mean Platelet Volume 8.4; Microcytosis Slight; Monocytes # (A) 0.4 k/uL (0-1.0); Monocytes % (A) 6 %; Neutrophils # (A) 5.6 k/uL (1.3-7.7); Neutrophils % (A) 86 %; Poikilocytosis Slight; RDW 22.7 % (11.5-15.5); WBC 6.5 k/uL (3.8-10.6)
[2020-03-01 07:47] LABS: Platelet Count 65 k/uL (150-450)
[2020-03-01] MEDS: INSULIN ASPART (NovoLOG) 100 UNIT/ML VIAL SQ SCH ×3 (08:25→19:21)
[2020-03-01] MEDS: LACTULOSE 20 GM/30 ML CUP PO SCH (08:26)
[2020-03-01] MEDS: SERTRALINE 100 MG TAB PO SCH (08:26)
[2020-03-01] MEDS: MAGNESIUM OXIDE 400 MG TAB PO SCH (08:27)
[2020-03-01] MEDS: PANTOPRAZOLE 40 MG TABLET PO SCH ×2 (08:27→19:21)
[2020-03-01] MEDS: lamoTRIgine 25 MG TAB PO SCH ×2 (08:27→22:22)
[2020-03-01] MEDS: FOLIC ACID 1 MG TAB PO SCH (08:27)
[2020-03-01] MEDS: COLLAGENASE 250 UNIT/GM OINTMENT 30 GM TUBE TOPICAL SCH (08:28)
[2020-03-01 10:51] LABS: INR 1.44 (0.90-1.11); Prothrombin Time 15.4 sec (9.9-11.9)
[2020-03-01 11:04] LABS: African American GFR (CKD) 56.6 (60.0-200.0); Albumin 2.3 g/dL (3.80-4.90); Albumin/Globulin Ratio 0.59 (1.60-3.17); BUN/Creat Ratio 24.62 Ratio (12.00-20.00); Calcium 7.7 mg/dL (8.7-10.3); Globulin 3.9 g/dL (1.6-3.3); Non-African American GFR(CKD) 48.8 (60.0-200.0); Potassium 4.7 mmol/L (3.5-5.5); Total Bilirubin 3.3 mg/dL (0.3-1.2); Total Protein 6.2 g/dL (6.2-8.2)
[2020-03-01 11:39] LABS: Glucose,Whole Blood 145 mg/dL (75-99)
--- NOTE | 2020-03-01 13:23 | P.PN ---
Subjective Patient is seen in follow-up for acute kidney injury. Renal function is stable. Creatinine 1.3 today. She has been waiting. Complains of abdominal discomfort due to the ascites. Scheduled for paracentesis today. No vomiting or diarrhea. No active bleeding. Hemoglobin better post transfusion February 28. Vital signs are stable. General: The patient appeared well nourished and normally developed. HEENT: Head exam is unremarkable. Neck is without jugular venous distension. LUNGS: Breath sounds decreased. HEART: Rate and Rhythm are regular. ABDOMEN: Soft. Distention noted. EXTREMITITES: 2+ edema. Objective - Vital Signs Vital signs: Vital Signs Temp 97.7 F 03/01/20 07:44 Pulse 96 03/01/20 07:44 Resp 16 03/01/20 07:44 BP 98/50 03/01/20 07:44 Pulse Ox 90 L 03/01/20 07:44 Intake & Output 02/29/20 03/01/20 03/01/20 18:59 06:59 18:59 Intake Total 1670 Output Total 100 Balance 1670 -100 Intake: Intake, IV Titration 700 Amount Sodium Chloride 0.9% 1, 600 000 ml @ 75 mls/hr IV . [id number] WOO Rx#:[id number] cefTRIAXone 1 gm In 100 Sodium Chloride 0.9% 50 ml @ 100 mls/hr IVPB Q24HR WOO Rx#:[id number] Oral 350 Blood Product 620 Rc As-1 Unit 310 [id number] Output: Urine 100 Other: Voiding Method Bedpan Bedpan Incontinent Incontinent # Voids 2 - Labs CBC & Chem 7: 03/01/20 06:35 03/01/20 06:35 Labs: Abnormal Lab Results - Last 24 Hours (Table) 02/29/20 02/29/20 02/29/20 Range/Units 04:18 14:02 17:03 RBC (3.80-5.40) m/uL Hgb (11.4-16.0) gm/dL Hct (34.0-46.0) % MCHC (31.0-37.0) g/dL RDW (11.5-15.5) % Plt Count (150-450) k/uL Lymphocytes # (1.0-4.8) k/uL PT (9.9-11.9) sec INR (0.90-1.11) Sodium 127 L (137-145) mmol/L BUN (9.0-27.0) mg/dL Est GFR (CKD-EPI)AfAm (60.0-200.0) Est GFR (CKD-EPI)NonAf (60.0-200.0) BUN/Creatinine Ratio (12.00-20.00) Ratio Glucose (70-110) mg/dL POC Glucose (mg/dL) 115 H (75-99) mg/dL Calcium (8.7-10.3) mg/dL Iron 11 L (50-170) ug/dL TIBC 193 L (228-460) ug/dL % Saturation 5.70 L (12.00-45.00) Total Bilirubin (0.3-1.2) mg/dL AST (13-35) U/L Alkaline Phosphatase (41-126) U/L Albumin (3.80-4.90) g/dL Globulin (1.6-3.3) g/dL Albumin/Globulin Ratio (1.60-3.17) g/dL 02/29/20 03/01/20 03/01/20 Range/Units 20:11 06:35 06:35 RBC 3.00 L (3.80-5.40) m/uL Hgb 7.6 L (11.4-16.0) gm/dL Hct 25.0 L (34.0-46.0) % MCHC 30.3 L (31.0-37.0) g/dL RDW 22.7 H (11.5-15.5) % Plt Count 65 L (150-450) k/uL Lymphocytes # 0.4 L (1.0-4.8) k/uL PT 15.4 H (9.9-11.9) sec INR 1.44 H (0.90-1.11) Sodium (137-145) mmol/L BUN (9.0-27.0) mg/dL Est GFR (CKD-EPI)AfAm (60.0-200.0) Est GFR (CKD-EPI)NonAf (60.0-200.0) BUN/Creatinine Ratio (12.00-20.00) Ratio Glucose (70-110) mg/dL POC Glucose (mg/dL) 145 H (75-99) mg/dL Calcium (8.7-10.3) mg/dL Iron (50-170) ug/dL TIBC (228-460) ug/dL % Saturation (12.00-45.00) Total Bilirubin (0.3-1.2) mg/dL AST (13-35) U/L Alkaline Phosphatase (41-126) U/L Albumin (3.80-4.90) g/dL Globulin (1.6-3.3) g/dL Albumin/Globulin Ratio (1.60-3.17) g/dL 03/01/20 03/01/20 03/01/20 Range/Units 06:35 06:43 11:35 RBC (3.80-5.40) m/uL Hgb (11.4-16.0) gm/dL Hct (34.0-46.0) % MCHC (31.0-37.0) g/dL RDW (11.5-15.5) % Plt Count (150-450) k/uL Lymphocytes # (1.0-4.8) k/uL PT (9.9-11.9) sec INR (0.90-1.11) Sodium 130 L (137-145) mmol/L BUN 32.0 H (9.0-27.0) mg/dL Est GFR (CKD-EPI)AfAm 56.6 L (60.0-200.0) Est GFR (CKD-EPI)NonAf 48.8 L (60.0-200.0) BUN/Creatinine Ratio 24.62 H (12.00-20.00) Ratio Glucose 135 H (70-110) mg/dL POC Glucose (mg/dL) 137 H 145 H (75-99) mg/dL Calcium 7.7 L (8.7-10.3) mg/dL Iron (50-170) ug/dL TIBC (228-460) ug/dL % Saturation (12.00-45.00) Total Bilirubin 3.3 H (0.3-1.2) mg/dL AST 38 H (13-35) U/L Alkaline Phosphatase 165 H (41-126) U/L Albumin 2.30 L (3.80-4.90) g/dL Globulin 3.9 H (1.6-3.3) g/dL Albumin/Globulin Ratio 0.59 L (1.60-3.17) g/dL Assessment and Plan Plan: Assessment: 1. Acute kidney injury mostly prerenal secondary to acute blood loss anemia and hypotension. Can't rule out hepatorenal syndrome. Renal function stable. Creatinine 1.3 today. No proteinuria on UA. No evidence of hydronephrosis noted on kidney ultrasound. 2. Nonalcoholic fatty liver cirrhosis. 3. Acute blood loss anemia status post blood transition. Iron deficiency noted. 4. Volume overload. 5. Ascites. Scheduled for paracentesis today. 6. Hypervolemic hyponatremia. Plan: 25 g of albumin pre and another 25 g albumin post-paracentesis. Hep-Lock IV fluids. Resume spironolactone 50 mg twice daily. Resume Lasix 40 mg orally once daily. Low-salt diet and 1500 mL fluid restriction. Check urine sodium. IV iron 3 doses. First dose today. Repeat electrolytes in the morning.
[2020-03-01 13:31] VITALS: BMI 44.6
[2020-03-01] MEDS: ALBUMIN HUMAN 25% 50 ML in EMPTY BAG 1 BAG IVPB SCH ×4 (14:30→22:22)
--- NOTE | 2020-03-01 14:39 | P.PN ---
Subjective Progress Note Date: 03/01/20 Patient said that she's not feeling well today. She did not have any specific complaints. She said that she is not feeling well overall. She denies any fevers or chills. No abdominal pain. No nausea or vomiting. Objective - Vital Signs Vital signs: Vital Signs Temp 97.7 F 03/01/20 07:44 Pulse 95 03/01/20 14:21 Resp 16 03/01/20 14:21 BP 105/65 03/01/20 14:21 Pulse Ox 98 03/01/20 14:21 Intake & Output 02/29/20 03/01/20 03/01/20 18:59 06:59 18:59 Intake Total 1670 Output Total 100 Balance 1670 -100 Weight 117.934 kg Intake: Intake, IV Titration 700 Amount Sodium Chloride 0.9% 1, 600 000 ml @ 75 mls/hr IV . [id number] WOO Rx#:[id number] cefTRIAXone 1 gm In 100 Sodium Chloride 0.9% 50 ml @ 100 mls/hr IVPB Q24HR WOO Rx#:[id number] Oral 350 Blood Product 620 Rc As-1 Unit 310 [id number] Output: Urine 100 Other: Voiding Method Bedpan Bedpan Incontinent Incontinent # Voids 2 - Exam General: The patient is awake and alert, in no distress Eye: there is normal conjunctiva bilaterally. Neck: The neck is supple, there is no JVD. Cardiovascular: Normal S1-S2, no S3-S4, no murmurs. Respiratory: Lungs clear to auscultation bilaterally Gastrointestinal: Abdomen is soft, nontender Musculoskeletal: There is no pedal edema. Neurological:. Speech is normal. Skin: Skin is warm and dry - Labs CBC & Chem 7: 03/01/20 06:35 03/01/20 06:35 Labs: Abnormal Lab Results - Last 24 Hours (Table) 02/29/20 02/29/20 02/29/20 Range/Units 04:18 17:03 20:11 RBC (3.80-5.40) m/uL Hgb (11.4-16.0) gm/dL Hct (34.0-46.0) % MCHC (31.0-37.0) g/dL RDW (11.5-15.5) % Plt Count (150-450) k/uL Lymphocytes # (1.0-4.8) k/uL PT (9.9-11.9) sec INR (0.90-1.11) Sodium (135-145) mmol/L BUN (9.0-27.0) mg/dL Est GFR (CKD-EPI)AfAm (60.0-200.0) Est GFR (CKD-EPI)NonAf (60.0-200.0) BUN/Creatinine Ratio (12.00-20.00) Ratio Glucose (70-110) mg/dL POC Glucose (mg/dL) 115 H 145 H (75-99) mg/dL Calcium (8.7-10.3) mg/dL Iron 11 L (50-170) ug/dL TIBC 193 L (228-460) ug/dL % Saturation 5.70 L (12.00-45.00) Total Bilirubin (0.3-1.2) mg/dL AST (13-35) U/L Alkaline Phosphatase (41-126) U/L Albumin (3.80-4.90) g/dL Globulin (1.6-3.3) g/dL Albumin/Globulin Ratio (1.60-3.17) g/dL 03/01/20 03/01/20 03/01/20 Range/Units 06:35 06:35 06:35 RBC 3.00 L (3.80-5.40) m/uL Hgb 7.6 L (11.4-16.0) gm/dL Hct 25.0 L (34.0-46.0) % MCHC 30.3 L (31.0-37.0) g/dL RDW 22.7 H (11.5-15.5) % Plt Count 65 L (150-450) k/uL Lymphocytes # 0.4 L (1.0-4.8) k/uL PT 15.4 H (9.9-11.9) sec INR 1.44 H (0.90-1.11) Sodium 130 L (135-145) mmol/L BUN 32.0 H (9.0-27.0) mg/dL Est GFR (CKD-EPI)AfAm 56.6 L (60.0-200.0) Est GFR (CKD-EPI)NonAf 48.8 L (60.0-200.0) BUN/Creatinine Ratio 24.62 H (12.00-20.00) Ratio Glucose 135 H (70-110) mg/dL POC Glucose (mg/dL) (75-99) mg/dL Calcium 7.7 L (8.7-10.3) mg/dL Iron (50-170) ug/dL TIBC (228-460) ug/dL % Saturation (12.00-45.00) Total Bilirubin 3.3 H (0.3-1.2) mg/dL AST 38 H (13-35) U/L Alkaline Phosphatase 165 H (41-126) U/L Albumin 2.30 L (3.80-4.90) g/dL Globulin 3.9 H (1.6-3.3) g/dL Albumin/Globulin Ratio 0.59 L (1.60-3.17) g/dL 03/01/20 03/01/20 Range/Units 06:43 11:35 RBC (3.80-5.40) m/uL Hgb (11.4-16.0) gm/dL Hct (34.0-46.0) % MCHC (31.0-37.0) g/dL RDW (11.5-15.5) % Plt Count (150-450) k/uL Lymphocytes # (1.0-4.8) k/uL PT (9.9-11.9) sec INR (0.90-1.11) Sodium (135-145) mmol/L BUN (9.0-27.0) mg/dL Est GFR (CKD-EPI)AfAm (60.0-200.0) Est GFR (CKD-EPI)NonAf (60.0-200.0) BUN/Creatinine Ratio (12.00-20.00) Ratio Glucose (70-110) mg/dL POC Glucose (mg/dL) 137 H 145 H (75-99) mg/dL Calcium (8.7-10.3) mg/dL Iron (50-170) ug/dL TIBC (228-460) ug/dL % Saturation (12.00-45.00) Total Bilirubin (0.3-1.2) mg/dL AST (13-35) U/L Alkaline Phosphatase (41-126) U/L Albumin (3.80-4.90) g/dL Globulin (1.6-3.3) g/dL Albumin/Globulin Ratio (1.60-3.17) g/dL Assessment and Plan Assessment: 1. Generalized weakness: PT/OT consulted. Patient would benefit from placement to correction facility for rehab 2. Acute kidney injury secondary to Acute tubular necrosis: Secondary to hypotension and anemia. Seen and evaluated by nephrology. No hydronephrosis on ultrasound. 3. Decompensated liver cirrhosis with ascites and thrombocytopenia secondary to splenic sequestration: Scheduled for paracentesis today. Albumin ordered by nephrology 4. Complicated urinary tract infection: Started on IV ceftriaxone awaiting ur ine culture 5. Hyper-tension, essential 6. Hyperlipidemia 7. Type 2 diabetes 8. Anemia of chronic disease: Status post 1 unit of PRBC transfused this admission Full Code DVT PPx: Heparin TID DPOA/NOK: Mother
[2020-03-01] MEDS: FUROSEMIDE 40 MG TAB PO SCH (16:03)
[2020-03-01] MEDS: SPIRONOLACTONE 25 MG TAB PO SCH ×2 (16:03→21:48)
[2020-03-01] MEDS: SODIUM FERRIC GLUCONAT-SUCROSE 125 MG in SODIUM CHLORIDE 0.9% 100 ML IVPB SCH (16:09)
[2020-03-01 16:45] LABS: Glucose,Whole Blood 131 mg/dL (75-99)
[2020-03-01 20:27] LABS: Glucose,Whole Blood 172 mg/dL (75-99)
[2020-03-01] MEDS: ZOLPIDEM 10 MG TAB PO SCH (21:42)
[2020-03-01] MEDS: traZODone HCL 100 MG TAB PO SCH (21:42)
[2020-03-01 22:21] LABS: Appearance,BF Clear; Color,BF Yellow; Nucleated Cells, Body Fluid 9 /uL; RBC, Body Fluid 26 /uL
[2020-03-01 22:31] LABS: Mononuclear WBC,Body Fluid 94 %; Polynuclear WBC,Body Fluid 6 %
[2020-03-02 01:35] LABS: Total Protein, Body Fluid 650 mg/dL
[2020-03-02 01:57] LABS: Amylase, Fluid Source Paracentesis Fluid; Glucose, BF Source Paracentesis Fluid; Glucose, Body Fluid 156 mg/dL
[2020-03-02] MEDS: HYDROcodone/APAP 5-325MG 1 EACH TAB PO PRN ×3 (05:29→20:44)
[2020-03-02 06:48] LABS: Glucose,Whole Blood 106 mg/dL (75-99)
--- NOTE | 2020-03-02 07:13 | P.CONS ---
History of Present Illness - Reason for Consult Consult date: 03/01/20 cirrhosis Requesting physician: Mar Tobin - Chief Complaint weakness, falls - History of Present Illness 49-year-old female with multiple medical comorbiditiesincluding hypertension, hyperlipidemia, diabetes mellitus, Becker cirrhosis who presented to the hospital due to weakness and falls. The patient is well-known to the GI service and follows up in the outpatient setting. She has a history of decompensated cirrhosis requiring frequent large volume paracentesis. The patient is maintained on Aldactone 50 mg twice daily and Lasix 40 mg daily at home. She is also been given lactulose in the past for encephalopathy but does not take the medication due to her immobility and concerns over episodes of incontinence. The patient had previously been in a rehabilitation facility earlier in the year and had done well however she failed to progress after discharge from the rehabilitation facility and is been using a wheelchair since that time. She reports episodes of falling. On presentation laboratory evaluation significant for INR 1.7, WBC 5.5, hemoglobin 6.5, platelet count 75,000, total bilirubin 4.4, alkaline phosphatase 175, AST 43 and ALT 18. She underwent her last paracentesis prior to admission on 01/29 with 10.8 L removed and is scheduled for paracentesis today. Last EGD on 09/08/2019 significant for mild portal hypertensive gastropathy and mild duodenitis with no varices noted. The patient was referred to the [facility] hepatology service after her last outpatient visit but has not followed up with him at this time reporting that she has not received a telephone call to set up her appointment Review of Systems REVIEW OF SYSTEMS: CONSTITUTIONAL: Denies any fevers, chills, but does report overall weakness and fatigue. CARDIOVASCULAR: Denies any chest pain, palpitations high or low blood pressures RESPIRATORY: Denies any shortness of breath, hemoptysis or cough. GENITOURINARY: No dysuria or hematuria urinalysis suspicious for UTI. MUSCULOSKELETAL: No focal weakness reported. SKIN: Denies any new rashes or lesions, jaundice or pallor. PSYCHIATRIC: Denies any depression or anxiety currently but does have a psychiatric history. NEUROLOGY: Denies headache, denies any new focal deficits. EARS/NOSE/THROAT: No recent hearing change, congestion, nasal discharge or sore throat. EYES: No pain in eyes, discharge or change in vision. GASTROINTESTINAL: As per HPI. Past Medical History Past Medical History: Diabetes Mellitus, Hyperlipidemia, Hypertension, Liver Disease Additional Past Medical History / Comment(s): Fatty non alcholic liver disease - Acites, paracentesis every other . 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 MDRO Source:: VRE URINE/ MRSA ABDOMEN Past Surgical History: Section, Hysterectomy Additional Past Surgical History / Comment(s): Oophrarectomy, large volume paracentesis Past Anesthesia/Blood Transfusion Reactions: No Reported Reaction Additional Past Anesthesia/Blood Transfusion Reaction / Comm: has had transfusions without problems Past Psychological History: Bipolar, Depression Smoking Status: Never smoker Past Alcohol Use History: None Reported Past Drug Use History: None Reported - Past Family History Father Family Medical History: COPD, Hyperlipidemia, Hypertension, Renal Disease Mother Family Medical History: Hyperlipidemia, Hypertension Medications and Allergies Home Medications Medication Instructions Recorded Confirmed Type Sertraline [Zoloft] 200 mg PO DAILY 09/02/14 02/28/20 History ARIPiprazole [Abilify] 20 mg PO DAILY 09/13/18 02/28/20 History lamoTRIgine [LaMICtal] 25 mg PO BID 08/23/19 02/28/20 History Pantoprazole [Protonix] 40 mg PO AC-BID #60 tablet. 09/09/19 02/28/20 Rx traZODone HCL 200 mg PO HS 10/31/19 02/28/20 History Acetaminophen Tab [Tylenol] 650 mg PO Q12H PRN 12/12/19 02/28/20 History Folic Acid 1 mg PO DAILY 12/12/19 02/28/20 History INSULIN LISPRO (humaLOG) [humaLOG] See Protocol SQ AC-TID 12/12/19 02/28/20 History Lactulose 20 gm PO DAILY 12/12/19 02/28/20 History Potassium Chloride ER [K-Dur 10] 10 meq PO BID #0 12/12/19 02/28/20 Rx LORazepam [Ativan] 1 mg PO DAILY PRN #5 tab 12/13/19 02/28/20 Rx Zolpidem [Ambien] 10 mg PO HS #5 tab 12/13/19 02/28/20 Rx Magnesium Oxide [Mag-Ox] 400 mg PO DAILY #30 tab 01/07/20 02/28/20 Rx Cephalexin [Keflex] 500 mg PO Q8HR #21 cap 02/24/20 02/28/20 Rx Collagenase [Santyl] 1 applic TOPICAL DAILY #1 tube 02/24/20 02/28/20 Rx Furosemide [Lasix] 40 mg PO DAILY 02/24/20 02/28/20 History Spironolactone 50 mg PO BID 02/24/20 02/28/20 History Allergies Allergy/AdvReac Type Severity Reaction Status Date / Time Penicillins Allergy Rash/Hives Verified 02/28/20 13:38 Sulfa (Sulfonamide Allergy Rash/Hives Verified 02/28/20 13:38 Antibiotics) erythromycin base AdvReac Abdominal Verified 02/28/20 13:38 Pain meperidine HCl [From Demerol] AdvReac Confusion/N Verified 02/28/20 13:38 ausea Physical Exam Vitals: Vital Signs Temp Pulse Pulse Resp BP BP Pulse Ox 02/29/20 11:42 98.2 F 95 16 106/61 95 02/29/20 09:07 98.2 F 98 16 94/58 02/29/20 08:37 98.5 F 98 16 108/61 93 L 02/29/20 08:27 98 F 93 18 97/52 97 02/29/20 07:52 97.1 F L 93 18 94/51 92 L 02/29/20 05:00 97.9 F 95 18 109/50 96 02/29/20 00:00 20 02/28/20 20:14 97.6 F 107 H 20 104/55 94 L 02/28/20 16:39 98.0 F 102 H 17 105/65 97 Intake and Output 02/28/20 02/29/20 02/29/20 22:59 06:59 14:59 Intake Total 310 Balance 310 Intake: Blood Product 310 Rc As-1 Unit 310 [id number] Other: Voiding Method Bedpan Incontinent # Voids 0 0 # Bowel Movements 0 0 On physical examination, patient appears comfortable in no apparent distress. HEAD: Normocephalic, atraumatic. EYES: Scleral icterus. No conjunctival injection. MOUTH: No lesions, tongue midline. NECK: Trachea midline, no gross abnormalities. CHEST: Clear to auscultation with no wheezing or rhonchi appreciated. HEART: Regular rate and rhythm. ABDOMEN: Soft, obese. Bowel sounds are positive. No organomegaly. No guarding or rigidity. EXTREMITIES: Bilateral pedal edema. SKIN: No rashes, jaundice. NEUROLOGIC: Alert and oriented x3. No focal deficits. Results CBC & Chem 7: 03/01/20 06:35 03/01/20 06:35 Labs: Abnormal Lab Results - Last 24 Hours (Table) 02/28/20 02/28/20 02/28/20 Range/Units 12:55 12:55 12:55 RBC 3.15 L (3.80-5.40) m/uL Hgb 7.3 L (11.4-16.0) gm/dL Hct 25.6 L (34.0-46.0) % MCH 23.3 L (25.0-35.0) pg MCHC 28.7 L (31.0-37.0) g/dL RDW 22.8 H (11.5-15.5) % Plt Count 82 L (150-450) k/uL Neutrophils # 8.2 H (1.3-7.7) k/uL Lymphocytes # 0.5 L (1.0-4.8) k/uL Retic Count (0.5-2.0) % PT 16.5 H (9.0-12.0) sec INR 1.7 H (<1.2) Sodium (137-145) mmol/L Potassium (3.5-5.1) mmol/L Anion Gap (4.00-12.00) mmol/L BUN (7-17) mg/dL Creatinine (0.52-1.04) mg/dL Est GFR (CKD-EPI)AfAm (60.0-200.0) Est GFR (CKD-EPI)NonAf (60.0-200.0) BUN/Creatinine Ratio (12.00-20.00) Ratio Glucose (74-99) mg/dL POC Glucose (mg/dL) (75-99) mg/dL Plasma Lactic Acid Mehul (0.7-2.0) mmol/L Calcium (8.4-10.2) mg/dL Total Bilirubin (0.2-1.3) mg/dL AST (14-36) U/L Alkaline Phosphatase (38-126) U/L Total Protein (6.2-8.2) g/dL Albumin (3.5-5.0) g/dL Globulin (1.6-3.3) g/dL Albumin/Globulin Ratio (1.60-3.17) g/dL Urine Appearance Cloudy H (Clear) Urine Bilirubin 1+ H (Negative) Ur Leukocyte Esterase Moderate H (Negative) Urine WBC 7 H (0-5) /hpf Calcium Oxalate Crystal Rare H (None) /hpf Amorphous Sediment Occasional H (None) /hpf Urine Bacteria Rare H (None) /hpf Hyaline Casts 39 H (0-2) /lpf Urine Mucus Rare H (None) /hpf Crossmatch 02/28/20 02/28/20 02/28/20 Range/Units 12:55 12:55 17:20 RBC (3.80-5.40) m/uL Hgb (11.4-16.0) gm/dL Hct (34.0-46.0) % MCH (25.0-35.0) pg MCHC (31.0-37.0) g/dL RDW (11.5-15.5) % Plt Count (150-450) k/uL Neutrophils # (1.3-7.7) k/uL Lymphocytes # (1.0-4.8) k/uL Retic Count (0.5-2.0) % PT (9.0-12.0) sec INR (<1.2) Sodium 127 L (137-145) mmol/L Potassium 5.3 H (3.5-5.1) mmol/L Anion Gap (4.00-12.00) mmol/L BUN 31 H (7-17) mg/dL Creatinine 1.39 H (0.52-1.04) mg/dL Est GFR (CKD-EPI)AfAm (60.0-200.0) Est GFR (CKD-EPI)NonAf (60.0-200.0) BUN/Creatinine Ratio (12.00-20.00) Ratio Glucose 157 H (74-99) mg/dL POC Glucose (mg/dL) (75-99) mg/dL Plasma Lactic Acid Mehul 3.1 H* 2.7 H* (0.7-2.0) mmol/L Calcium 8.2 L (8.4-10.2) mg/dL Total Bilirubin 4.4 H (0.2-1.3) mg/dL AST 43 H (14-36) U/L Alkaline Phosphatase 175 H (38-126) U/L Total Protein (6.2-8.2) g/dL Albumin 2.5 L (3.5-5.0) g/dL Globulin (1.6-3.3) g/dL Albumin/Globulin Ratio (1.60-3.17) g/dL Urine Appearance (Clear) Urine Bilirubin (Negative) Ur Leukocyte Esterase (Negative) Urine WBC (0-5) /hpf Calcium Oxalate Crystal (None) /hpf Amorphous Sediment (None) /hpf Urine Bacteria (None) /hpf Hyaline Casts (0-2) /lpf Urine Mucus (None) /hpf Crossmatch 02/28/20 02/28/20 02/28/20 Range/Units 18:10 19:35 20:17 RBC (3.80-5.40) m/uL Hgb (11.4-16.0) gm/dL Hct (34.0-46.0) % MCH (25.0-35.0) pg MCHC (31.0-37.0) g/dL RDW (11.5-15.5) % Plt Count (150-450) k/uL Neutrophils # (1.3-7.7) k/uL Lymphocytes # (1.0-4.8) k/uL Retic Count (0.5-2.0) % PT (9.0-12.0) sec INR (<1.2) Sodium (137-145) mmol/L Potassium (3.5-5.1) mmol/L Anion Gap (4.00-12.00) mmol/L BUN (7-17) mg/dL Creatinine (0.52-1.04) mg/dL Est GFR (CKD-EPI)AfAm (60.0-200.0) Est GFR (CKD-EPI)NonAf (60.0-200.0) BUN/Creatinine Ratio (12.00-20.00) Ratio Glucose (74-99) mg/dL POC Glucose (mg/dL) 142 H 148 H (75-99) mg/dL Plasma Lactic Acid Mehul 2.2 H* (0.7-2.0) mmol/L Calcium (8.4-10.2) mg/dL Total Bilirubin (0.2-1.3) mg/dL AST (14-36) U/L Alkaline Phosphatase (38-126) U/L Total Protein (6.2-8.2) g/dL Albumin (3.5-5.0) g/dL Globulin (1.6-3.3) g/dL Albumin/Globulin Ratio (1.60-3.17) g/dL Urine Appearance (Clear) Urine Bilirubin (Negative) Ur Leukocyte Esterase (Negative) Urine WBC (0-5) /hpf Calcium Oxalate Crystal (None) /hpf Amorphous Sediment (None) /hpf Urine Bacteria (None) /hpf Hyaline Casts (0-2) /lpf Urine Mucus (None) /hpf Crossmatch 02/29/20 02/29/20 02/29/20 Range/Units 04:18 04:18 04:18 RBC 2.71 L (3.80-5.40) m/uL Hgb 6.5 L* (11.4-16.0) gm/dL Hct 21.9 L (34.0-46.0) % MCH 23.9 L (25.0-35.0) pg MCHC 29.6 L (31.0-37.0) g/dL RDW 23.1 H (11.5-15.5) % Plt Count 75 L (150-450) k/uL Neutrophils # (1.3-7.7) k/uL Lymphocytes # 0.6 L (1.0-4.8) k/uL Retic Count (0.5-2.0) % PT 16.8 H (9.0-12.0) sec INR 1.7 H (<1.2) Sodium 128 L (137-145) mmol/L Potassium (3.5-5.1) mmol/L Anion Gap 3.80 L (4.00-12.00) mmol/L BUN 32.0 H (7-17) mg/dL Creatinine (0.52-1.04) mg/dL Est GFR (CKD-EPI)AfAm 51.7 L (60.0-200.0) Est GFR (CKD-EPI)NonAf 44.6 L (60.0-200.0) BUN/Creatinine Ratio 22.86 H (12.00-20.00) Ratio Glucose 121 H (74-99) mg/dL POC Glucose (mg/dL) (75-99) mg/dL Plasma Lactic Acid Mehul (0.7-2.0) mmol/L Calcium 7.8 L (8.4-10.2) mg/dL Total Bilirubin 3.2 H (0.2-1.3) mg/dL AST 39 H (14-36) U/L Alkaline Phosphatase 150 H (38-126) U/L Total Protein 6.0 L (6.2-8.2) g/dL Albumin 2.10 L (3.5-5.0) g/dL Globulin 3.9 H (1.6-3.3) g/dL Albumin/Globulin Ratio 0.54 L (1.60-3.17) g/dL Urine Appearance (Clear) Urine Bilirubin (Negative) Ur Leukocyte Esterase (Negative) Urine WBC (0-5) /hpf Calcium Oxalate Crystal (None) /hpf Amorphous Sediment (None) /hpf Urine Bacteria (None) /hpf Hyaline Casts (0-2) /lpf Urine Mucus (None) /hpf Crossmatch 02/29/20 02/29/20 02/29/20 Range/Units 04:18 05:19 07:21 RBC (3.80-5.40) m/uL Hgb (11.4-16.0) gm/dL Hct (34.0-46.0) % MCH (25.0-35.0) pg MCHC (31.0-37.0) g/dL RDW (11.5-15.5) % Plt Count (150-450) k/uL Neutrophils # (1.3-7.7) k/uL Lymphocytes # (1.0-4.8) k/uL Retic Count 4.2 H (0.5-2.0) % PT (9.0-12.0) sec INR (<1.2) Sodium (137-145) mmol/L Potassium (3.5-5.1) mmol/L Anion Gap (4.00-12.00) mmol/L BUN (7-17) mg/dL Creatinine (0.52-1.04) mg/dL Est GFR (CKD-EPI)AfAm (60.0-200.0) Est GFR (CKD-EPI)NonAf (60.0-200.0) BUN/Creatinine Ratio (12.00-20.00) Ratio Glucose (74-99) mg/dL POC Glucose (mg/dL) 112 H (75-99) mg/dL Plasma Lactic Acid Mehul (0.7-2.0) mmol/L Calcium (8.4-10.2) mg/dL Total Bilirubin (0.2-1.3) mg/dL AST (14-36) U/L Alkaline Phosphatase (38-126) U/L Total Protein (6.2-8.2) g/dL Albumin (3.5-5.0) g/dL Globulin (1.6-3.3) g/dL Albumin/Globulin Ratio (1.60-3.17) g/dL Urine Appearance (Clear) Urine Bilirubin (Negative) Ur Leukocyte Esterase (Negative) Urine WBC (0-5) /hpf Calcium Oxalate Crystal (None) /hpf Amorphous Sediment (None) /hpf Urine Bacteria (None) /hpf Hyaline Casts (0-2) /lpf Urine Mucus (None) /hpf Crossmatch See Detail 02/29/20 Range/Units 11:20 RBC (3.80-5.40) m/uL Hgb (11.4-16.0) gm/dL Hct (34.0-46.0) % MCH (25.0-35.0) pg MCHC (31.0-37.0) g/dL RDW (11.5-15.5) % Plt Count (150-450) k/uL Neutrophils # (1.3-7.7) k/uL Lymphocytes # (1.0-4.8) k/uL Retic Count (0.5-2.0) % PT (9.0-12.0) sec INR (<1.2) Sodium (137-145) mmol/L Potassium (3.5-5.1) mmol/L Anion Gap (4.00-12.00) mmol/L BUN (7-17) mg/dL Creatinine (0.52-1.04) mg/dL Est GFR (CKD-EPI)AfAm (60.0-200.0) Est GFR (CKD-EPI)NonAf (60.0-200.0) BUN/Creatinine Ratio (12.00-20.00) Ratio Glucose (74-99) mg/dL POC Glucose (mg/dL) 177 H (75-99) mg/dL Plasma Lactic Acid Mehul (0.7-2.0) mmol/L Calcium (8.4-10.2) mg/dL Total Bilirubin (0.2-1.3) mg/dL AST (14-36) U/L Alkaline Phosphatase (38-126) U/L Total Protein (6.2-8.2) g/dL Albumin (3.5-5.0) g/dL Globulin (1.6-3.3) g/dL Albumin/Globulin Ratio (1.60-3.17) g/dL Urine Appearance (Clear) Urine Bilirubin (Negative) Ur Leukocyte Esterase (Negative) Urine WBC (0-5) /hpf Calcium Oxalate Crystal (None) /hpf Amorphous Sediment (None) /hpf Urine Bacteria (None) /hpf Hyaline Casts (0-2) /lpf Urine Mucus (None) /hpf Crossmatch US - abdomen: report reviewed (ultrasound of the abdomen with a cirrhotic appearing liver, no biliary dilation, moderate ascites and some gallbladder wall thickening) Assessment and Plan (1) Cirrhosis Narrative/Plan: 49-year-old female with multiple medical comorbidities including decompensated Becker cirrhosis requiring frequent high-volume paracentesis. The patient is currently managed withLasix 40 mg daily and Aldactone 50 mg twice a day as well as frequent high-volume paracentesis. Previous EGD in 08/2019 significant for mild portal hypertensive gastropathy with no varices noted. The patient presented for weakness and falls. She has been prescribed lactulose in the outpatient setting has been noncompliant due to concerns over soiling herself. The patient was also referred to [facility] but has not followed up with hepatology service at that facility as of yet, she reports she has not received a phone call to set up the appointment. Current Visit: No Status: Acute Code(s): K74.60 - UNSPECIFIED CIRRHOSIS OF LIVER SNOMED Code(s): 12960447 (2) Hyperbilirubinemia Current Visit: Yes Status: Acute Code(s): E80.6 - OTHER DISORDERS OF BILIRUBIN METABOLISM SNOMED Code(s): 48967993 (3) Abdominal distention Current Visit: No Status: Acute Code(s): R14.0 - ABDOMINAL DISTENSION (GASEOUS) SNOMED Code(s): 79143641 Plan: supportive care Okay for sodium restricted diet Iron supplementation ordered Continue to monitor CBC, BMP, LFTs, INR Nephrology service is following the patient and will defer diuretic management to their service Currently on Lasix 40 mg daily and Aldactone 50 mg twice a day No plan for endoscopic evaluation at this time Extensive discussion with the patient and again have encouraged her to follow up with [facility] hepatology after discharge and continue to follow up locally Continue to monitor clinically thank you for allowing us to participate in the care of the patient
[2020-03-02] MEDS: INSULIN ASPART (NovoLOG) 100 UNIT/ML VIAL SQ SCH ×3 (07:19→17:25)
[2020-03-02] MEDS: PANTOPRAZOLE 40 MG TABLET PO SCH ×2 (07:24→18:20)
[2020-03-02 07:30] LABS: Anisocytosis Moderate; HCT 22.7 % (34.0-46.0); Hypochromasia Marked; MCH 25.4 pg (25.0-35.0); MCHC 30.5 g/dL (31.0-37.0); MCV 83.3 fL (80.0-100.0); Mean Platelet Volume 7.7; Microcytosis Slight; RBC 2.72 m/uL (3.80-5.40); RDW 22.8 % (11.5-15.5); WBC 3.7 k/uL (3.8-10.6)
[2020-03-02 07:51] LABS: Platelet Count 54 k/uL (150-450)
[2020-03-02 07:53] LABS: HGB 6.9 gm/dL (11.4-16.0)
[2020-03-02 08:30] LABS: Eosinophils # (M) 0.04 k/uL (0-0.7); Lymphocytes # (M) 0.22 k/uL (1.0-4.8); Monocytes # (M) 0.26 k/uL (0-1.0); Neutrophils # (M) 3.18 k/uL (1.3-7.7); Neutrophils % (M) 86 %; Nucleated Red Blood Cells 0 /100 WBC (0-0); Total Cells Counted 100
[2020-03-02 08:31] LABS: Target Cells Present
[2020-03-02 08:35] LABS: Poikilocytosis (M) Present
[2020-03-02] MEDS: MAGNESIUM OXIDE 400 MG TAB PO SCH (10:36)
[2020-03-02] MEDS: SPIRONOLACTONE 25 MG TAB PO SCH ×2 (10:36→20:45)
[2020-03-02] MEDS: FUROSEMIDE 40 MG TAB PO SCH (10:36)
[2020-03-02] MEDS: FOLIC ACID 1 MG TAB PO SCH (10:41)
[2020-03-02] MEDS: SODIUM FERRIC GLUCONAT-SUCROSE 125 MG in SODIUM CHLORIDE 0.9% 100 ML IVPB SCH (10:45)
[2020-03-02] MEDS: SERTRALINE 100 MG TAB PO SCH (10:54)
[2020-03-02 11:13] LABS: African American GFR (CKD) 62.3 (60.0-200.0); Albumin 2.5 g/dL (3.80-4.90); Albumin/Globulin Ratio 0.83 (1.60-3.17); BUN/Creat Ratio 24.17 Ratio (12.00-20.00); Calcium 7.8 mg/dL (8.7-10.3); Magnesium 1.9 mg/dL (1.5-2.4); Non-African American GFR(CKD) 53.8 (60.0-200.0); Total Bilirubin 2.6 mg/dL (0.3-1.2); Total Protein 5.5 g/dL (6.2-8.2)
[2020-03-02 11:22] LABS: INR 1.53 (0.90-1.11)
[2020-03-02] MEDS ORDERED: FUROSEMIDE 10 MG/ML 4 ML VIAL IV STA (11:30)
--- NOTE | 2020-03-02 11:30 | P.PN ---
Subjective Patient is seen in follow-up for acute kidney injury. Renal function slightly improved. She has been voiding. Feels better post paracentesis March 01. She had 8.6 L drained. No vomiting or diarrhea. No active bleeding. Hemoglobin better post transfusion February 28 But is low again today at 6.9. She will be receiving another unit of blood today. Vital signs are stable. General: The patient appeared well nourished and normally developed. HEENT: Head exam is unremarkable. Neck is without jugular venous distension. LUNGS: Breath sounds decreased. HEART: Rate and Rhythm are regular. ABDOMEN: Soft. Nontender. EXTREMITITES: 2+ edema. Objective - Vital Signs Vital signs: Vital Signs Temp 98.0 F 03/02/20 07:35 Pulse 90 03/02/20 07:35 Resp 17 03/02/20 07:35 BP 100/55 03/02/20 07:35 Pulse Ox 91 L 03/02/20 05:05 Intake & Output 03/01/20 03/02/20 03/02/20 18:59 06:59 18:59 Output Total 450 Balance -450 Weight 117.934 kg Output: Urine 450 Other: Voiding Method Bedpan Incontinent Incontinent Incontinent # Voids 3 - Labs CBC & Chem 7: 03/02/20 07:01 03/02/20 07:01 Labs: Abnormal Lab Results - Last 24 Hours (Table) 02/29/20 03/01/20 03/01/20 Range/Units 05:19 11:35 16:44 WBC (3.8-10.6) k/uL RBC (3.80-5.40) m/uL Hgb (11.4-16.0) gm/dL Hct (34.0-46.0) % MCHC (31.0-37.0) g/dL RDW (11.5-15.5) % Plt Count (150-450) k/uL Lymphocytes # (Manual) (1.0-4.8) k/uL PT (9.9-11.9) sec INR (0.90-1.11) Sodium (135-145) mmol/L BUN (9.0-27.0) mg/dL Est GFR (CKD-EPI)NonAf (60.0-200.0) BUN/Creatinine Ratio (12.00-20.00) Ratio POC Glucose (mg/dL) 145 H 131 H (75-99) mg/dL Calcium (8.7-10.3) mg/dL Total Bilirubin (0.3-1.2) mg/dL Alkaline Phosphatase (41-126) U/L Total Protein (6.2-8.2) g/dL Albumin (3.80-4.90) g/dL Albumin/Globulin Ratio (1.60-3.17) g/dL Crossmatch See Detail 03/01/20 03/02/20 03/02/20 Range/Units 20:26 06:46 07:01 WBC 3.7 L (3.8-10.6) k/uL RBC 2.72 L (3.80-5.40) m/uL Hgb 6.9 L* (11.4-16.0) gm/dL Hct 22.7 L (34.0-46.0) % MCHC 30.5 L (31.0-37.0) g/dL RDW 22.8 H (11.5-15.5) % Plt Count 54 L (150-450) k/uL Lymphocytes # (Manual) 0.22 L (1.0-4.8) k/uL PT (9.9-11.9) sec INR (0.90-1.11) Sodium (135-145) mmol/L BUN (9.0-27.0) mg/dL Est GFR (CKD-EPI)NonAf (60.0-200.0) BUN/Creatinine Ratio (12.00-20.00) Ratio POC Glucose (mg/dL) 172 H 106 H (75-99) mg/dL Calcium (8.7-10.3) mg/dL Total Bilirubin (0.3-1.2) mg/dL Alkaline Phosphatase (41-126) U/L Total Protein (6.2-8.2) g/dL Albumin (3.80-4.90) g/dL Albumin/Globulin Ratio (1.60-3.17) g/dL Crossmatch 03/02/20 03/02/20 Range/Units 07:01 07:01 WBC (3.8-10.6) k/uL RBC (3.80-5.40) m/uL Hgb (11.4-16.0) gm/dL Hct (34.0-46.0) % MCHC (31.0-37.0) g/dL RDW (11.5-15.5) % Plt Count (150-450) k/uL Lymphocytes # (Manual) (1.0-4.8) k/uL PT 16.0 H (9.9-11.9) sec INR 1.53 H (0.90-1.11) Sodium 134 L (135-145) mmol/L BUN 29.0 H (9.0-27.0) mg/dL Est GFR (CKD-EPI)NonAf 53.8 L (60.0-200.0) BUN/Creatinine Ratio 24.17 H (12.00-20.00) Ratio POC Glucose (mg/dL) (75-99) mg/dL Calcium 7.8 L (8.7-10.3) mg/dL Total Bilirubin 2.6 H (0.3-1.2) mg/dL Alkaline Phosphatase 137 H (41-126) U/L Total Protein 5.5 L (6.2-8.2) g/dL Albumin 2.50 L (3.80-4.90) g/dL Albumin/Globulin Ratio 0.83 L (1.60-3.17) g/dL Crossmatch Microbiology - Last 24 Hours (Table) 03/01/20 13:55 Gram Stain - Preliminary Paracentesis Fluid Body Fluid Culture - Preliminary 03/01/20 13:55 Anaerobic Culture - Preliminary Paracentesis Fluid Assessment and Plan Plan: Assessment: 1. Acute kidney injury mostly prerenal secondary to acute blood loss anemia and hypotension. Can't rule out hepatorenal syndrome. Renal function stable. Creatinine 1.2 today. No proteinuria on UA. No evidence of hydronephrosis noted on kidney ultrasound. 2. Nonalcoholic fatty liver cirrhosis. 3. Acute blood loss anemia status post blood transfusion. Iron deficiency noted. hemoglobin 6.9 today. 4. Volume overload. 5. Ascites. s/p paracentesis on March 01 with 8.6 L drained. 6. Hypervolemic hyponatremia. Plan: Maintain spironolactone 50 mg twice daily. Maintain lasix 40 mg orally once daily. I will give her an additional dose of Lasix 40 mg IV today post blood transfusion. Low-salt diet and 1500 mL fluid restriction. IV iron 3 doses. Second dose today. Repeat electrolytes in the morning.
[2020-03-02] MEDS: LACTULOSE 20 GM/30 ML CUP PO SCH (11:39)
[2020-03-02 11:44] LABS: Glucose,Whole Blood 117 mg/dL (75-99)
[2020-03-02] MEDS: COLLAGENASE 250 UNIT/GM OINTMENT 30 GM TUBE TOPICAL SCH (11:46)
[2020-03-02] MEDS: lamoTRIgine 25 MG TAB PO SCH ×2 (12:05→20:45)
--- NOTE | 2020-03-02 12:16 | P.PN ---
Subjective Progress Note Date: 03/02/20 Patient is feeling well today. She denies any abdominal pain. No acute events overnight reported to me by nursing staff. Objective - Vital Signs Vital signs: Vital Signs Temp 98.0 F 03/02/20 07:35 Pulse 90 03/02/20 11:37 Resp 17 03/02/20 07:35 BP 100/55 03/02/20 07:35 Pulse Ox 91 L 03/02/20 05:05 Intake & Output 03/01/20 03/02/20 03/02/20 18:59 06:59 18:59 Output Total 450 Balance -450 Weight 117.934 kg Output: Urine 450 Other: Voiding Method Bedpan Incontinent Incontinent Incontinent # Voids 3 - Exam General: The patient is awake and alert, in no distress Eye: there is normal conjunctiva bilaterally. Neck: The neck is supple, there is no JVD. Cardiovascular: Normal S1-S2, no S3-S4, no murmurs. Respiratory: Lungs clear to auscultation bilaterally Gastrointestinal: Abdomen is soft, nontender Musculoskeletal: There is no pedal edema. Neurological:. Speech is normal. Skin: Skin is warm and dry - Labs CBC & Chem 7: 03/02/20 07:01 03/02/20 07:01 Labs: Abnormal Lab Results - Last 24 Hours (Table) 02/29/20 03/01/20 03/01/20 Range/Units 05:19 16:44 20:26 WBC (3.8-10.6) k/uL RBC (3.80-5.40) m/uL Hgb (11.4-16.0) gm/dL Hct (34.0-46.0) % MCHC (31.0-37.0) g/dL RDW (11.5-15.5) % Plt Count (150-450) k/uL Lymphocytes # (Manual) (1.0-4.8) k/uL PT (9.9-11.9) sec INR (0.90-1.11) Sodium (135-145) mmol/L BUN (9.0-27.0) mg/dL Est GFR (CKD-EPI)NonAf (60.0-200.0) BUN/Creatinine Ratio (12.00-20.00) Ratio POC Glucose (mg/dL) 131 H 172 H (75-99) mg/dL Calcium (8.7-10.3) mg/dL Total Bilirubin (0.3-1.2) mg/dL Alkaline Phosphatase (41-126) U/L Total Protein (6.2-8.2) g/dL Albumin (3.80-4.90) g/dL Albumin/Globulin Ratio (1.60-3.17) g/dL Crossmatch See Detail 03/02/20 03/02/20 03/02/20 Range/Units 06:46 07:01 07:01 WBC 3.7 L (3.8-10.6) k/uL RBC 2.72 L (3.80-5.40) m/uL Hgb 6.9 L* (11.4-16.0) gm/dL Hct 22.7 L (34.0-46.0) % MCHC 30.5 L (31.0-37.0) g/dL RDW 22.8 H (11.5-15.5) % Plt Count 54 L (150-450) k/uL Lymphocytes # (Manual) 0.22 L (1.0-4.8) k/uL PT 16.0 H (9.9-11.9) sec INR 1.53 H (0.90-1.11) Sodium (135-145) mmol/L BUN (9.0-27.0) mg/dL Est GFR (CKD-EPI)NonAf (60.0-200.0) BUN/Creatinine Ratio (12.00-20.00) Ratio POC Glucose (mg/dL) 106 H (75-99) mg/dL Calcium (8.7-10.3) mg/dL Total Bilirubin (0.3-1.2) mg/dL Alkaline Phosphatase (41-126) U/L Total Protein (6.2-8.2) g/dL Albumin (3.80-4.90) g/dL Albumin/Globulin Ratio (1.60-3.17) g/dL Crossmatch 03/02/20 03/02/20 Range/Units 07:01 11:41 WBC (3.8-10.6) k/uL RBC (3.80-5.40) m/uL Hgb (11.4-16.0) gm/dL Hct (34.0-46.0) % MCHC (31.0-37.0) g/dL RDW (11.5-15.5) % Plt Count (150-450) k/uL Lymphocytes # (Manual) (1.0-4.8) k/uL PT (9.9-11.9) sec INR (0.90-1.11) Sodium 134 L (135-145) mmol/L BUN 29.0 H (9.0-27.0) mg/dL Est GFR (CKD-EPI)NonAf 53.8 L (60.0-200.0) BUN/Creatinine Ratio 24.17 H (12.00-20.00) Ratio POC Glucose (mg/dL) 117 H (75-99) mg/dL Calcium 7.8 L (8.7-10.3) mg/dL Total Bilirubin 2.6 H (0.3-1.2) mg/dL Alkaline Phosphatase 137 H (41-126) U/L Total Protein 5.5 L (6.2-8.2) g/dL Albumin 2.50 L (3.80-4.90) g/dL Albumin/Globulin Ratio 0.83 L (1.60-3.17) g/dL Crossmatch Microbiology - Last 24 Hours (Table) 03/01/20 13:55 Gram Stain - Preliminary Paracentesis Fluid Body Fluid Culture - Preliminary 03/01/20 13:55 Anaerobic Culture - Preliminary Paracentesis Fluid Assessment and Plan Assessment: 1. Generalized weakness: PT/OT consulted. Patient would benefit from placement to group home facility for rehab. Plan to discharge to [facility] 2. Acute kidney injury secondary to Acute tubular necrosis: Secondary to hypotension and anemia. Seen and evaluated by nephrology. No hydronephrosis on ultrasound. Creatinine improved 3. Decompensated liver cirrhosis with ascites and thrombocytopenia secondary to splenic sequestration: Status post paracentesis with approximately 8 L removed during this admission. Patient received albumin. She requires frequent paracen tesis. Continue diuretics as managed by nephrology. 4. Complicated urinary tract infection: Started on IV ceftriaxone. Unfortunately urine culture were not sent 5. Hyper-tension, essential: Blood pressure within acceptable range 6. Hyperlipidemia 7. Type 2 diabetes 8. Anemia of chronic disease: Status post 1 unit of PRBC transfused this admission. Repeat hemoglobin today is 6.9. Another unit ordered for transfusion Palliative care consult requested. Full Code DVT PPx: Heparin TID DPOA/NOK: Mother
--- NOTE | 2020-03-02 13:11 | P.PN ---
Subjective Progress Note Date: 03/02/20 Principal diagnosis: Elevated LFTs Lying in bed without any acute distress. She is feeling a little stronger today, states pain is better after paracentesis yesterday. Denies any nausea or vomiting. Denies any black stools. Hemoglobin dropped this morning to 6.9, she will receive her second unit of packed red blood cells this admission. Nephrology is on consult. Patient is to continue current doses of diuretics. She is on a low-sodium diet and tolerating it well. Objective - Vital Signs Vital signs: Vital Signs Temp 98.0 F 03/02/20 07:35 Pulse 90 03/02/20 07:35 Resp 17 03/02/20 07:35 BP 100/55 03/02/20 07:35 Pulse Ox 91 L 03/02/20 05:05 Intake & Output 03/01/20 03/02/20 03/02/20 18:59 06:59 18:59 Output Total 450 Balance -450 Weight 117.934 kg Output: Urine 450 Other: Voiding Method Bedpan Incontinent Incontinent Incontinent # Voids 3 - Exam General appearance: The patient is alert, oriented, in no acute distress. HET: Head is normocephalic and atraumatic. Conjunctiva pink. Sclera anicteric. Neck: Supple without lymphadenopathy. Abdomen: Soft,mild tenderness, nondistended with bowel sounds. No guarding or rigidity. Extremities: Normal skin color and turgor. No pedal edema Neurological: No focal deficits. Alert and oriented 3. - Labs CBC & Chem 7: 03/02/20 07:01 03/02/20 07:01 Labs: Abnormal Lab Results - Last 24 Hours (Table) 02/29/20 03/01/20 03/01/20 Range/Units 05:19 06:35 06:35 WBC (3.8-10.6) k/uL RBC (3.80-5.40) m/uL Hgb (11.4-16.0) gm/dL Hct (34.0-46.0) % MCHC (31.0-37.0) g/dL RDW (11.5-15.5) % Plt Count (150-450) k/uL Lymphocytes # (Manual) (1.0-4.8) k/uL PT 15.4 H (9.9-11.9) sec INR 1.44 H (0.90-1.11) Sodium 130 L (135-145) mmol/L BUN 32.0 H (9.0-27.0) mg/dL Est GFR (CKD-EPI)AfAm 56.6 L (60.0-200.0) Est GFR (CKD-EPI)NonAf 48.8 L (60.0-200.0) BUN/Creatinine Ratio 24.62 H (12.00-20.00) Ratio Glucose 135 H (70-110) mg/dL POC Glucose (mg/dL) (75-99) mg/dL Calcium 7.7 L (8.7-10.3) mg/dL Total Bilirubin 3.3 H (0.3-1.2) mg/dL AST 38 H (13-35) U/L Alkaline Phosphatase 165 H (41-126) U/L Albumin 2.30 L (3.80-4.90) g/dL Globulin 3.9 H (1.6-3.3) g/dL Albumin/Globulin Ratio 0.59 L (1.60-3.17) g/dL Crossmatch See Detail 03/01/20 03/01/20 03/01/20 Range/Units 11:35 16:44 20:26 WBC (3.8-10.6) k/uL RBC (3.80-5.40) m/uL Hgb (11.4-16.0) gm/dL Hct (34.0-46.0) % MCHC (31.0-37.0) g/dL RDW (11.5-15.5) % Plt Count (150-450) k/uL Lymphocytes # (Manual) (1.0-4.8) k/uL PT (9.9-11.9) sec INR (0.90-1.11) Sodium (135-145) mmol/L BUN (9.0-27.0) mg/dL Est GFR (CKD-EPI)AfAm (60.0-200.0) Est GFR (CKD-EPI)NonAf (60.0-200.0) BUN/Creatinine Ratio (12.00-20.00) Ratio Glucose (70-110) mg/dL POC Glucose (mg/dL) 145 H 131 H 172 H (75-99) mg/dL Calcium (8.7-10.3) mg/dL Total Bilirubin (0.3-1.2) mg/dL AST (13-35) U/L Alkaline Phosphatase (41-126) U/L Albumin (3.80-4.90) g/dL Globulin (1.6-3.3) g/dL Albumin/Globulin Ratio (1.60-3.17) g/dL Crossmatch 03/02/20 03/02/20 Range/Units 06:46 07:01 WBC 3.7 L (3.8-10.6) k/uL RBC 2.72 L (3.80-5.40) m/uL Hgb 6.9 L* (11.4-16.0) gm/dL Hct 22.7 L (34.0-46.0) % MCHC 30.5 L (31.0-37.0) g/dL RDW 22.8 H (11.5-15.5) % Plt Count 54 L (150-450) k/uL Lymphocytes # (Manual) 0.22 L (1.0-4.8) k/uL PT (9.9-11.9) sec INR (0.90-1.11) Sodium (135-145) mmol/L BUN (9.0-27.0) mg/dL Est GFR (CKD-EPI)AfAm (60.0-200.0) Est GFR (CKD-EPI)NonAf (60.0-200.0) BUN/Creatinine Ratio (12.00-20.00) Ratio Glucose (70-110) mg/dL POC Glucose (mg/dL) 106 H (75-99) mg/dL Calcium (8.7-10.3) mg/dL Total Bilirubin (0.3-1.2) mg/dL AST (13-35) U/L Alkaline Phosphatase (41-126) U/L Albumin (3.80-4.90) g/dL Globulin (1.6-3.3) g/dL Albumin/Globulin Ratio (1.60-3.17) g/dL Crossmatch Microbiology - Last 24 Hours (Table) 03/01/20 13:55 Gram Stain - Preliminary Paracentesis Fluid Body Fluid Culture - Preliminary 03/01/20 13:55 Anaerobic Culture - Preliminary Paracentesis Fluid Assessment and Plan (1) Cirrhosis Narrative/Plan: 49-year-old female with multiple medical comorbidities including decompensated Becker cirrhosis requiring frequent high-volume paracentesis. The patient is currently managed with Lasix 40 mg daily and Aldactone 50 mg twice a day as well as frequent high-volume paracentesis. Previous EGD in 08/2019 significant for mild portal hypertensive gastropathy with no varices noted. The patient presented for weakness and falls. She has been prescribed lactulose in the outpatient setting has been noncompliant due to concerns over soiling herself. The patient was also referred to [facility] but has not followed up with hepatology service at that facility as of yet, she reports she has not received a phone call to set up the appointment. She underwent a paracentesis yesterday, hemoglobin dropped to 6.9. Patient is receiving another unit of packed red blood cells. Will be scheduled for upper endoscopy tomorrow. Current Visit: No Status: Acute Code(s): K74.60 - UNSPECIFIED CIRRHOSIS OF LIVER SNOMED Code(s): 15528533 (2) Hyperbilirubinemia Current Visit: Yes Status: Acute Code(s): E80.6 - OTHER DISORDERS OF BILIRUBIN METABOLISM SNOMED Code(s): 69398130 (3) Abdominal distention Current Visit: No Status: Acute Code(s): R14.0 - ABDOMINAL DISTENSION (GA SEOUS) SNOMED Code(s): 29758482 Plan: Supportive care Okay for sodium restricted diet Nothing By mouth after midnight Likely anemia is related to chronic liver disease, however patient was reporting prior coffee ground emesis, Will schedule for upper endoscopy tomorrow. Agree with blood transfusion Iron supplementation ordered Continue to monitor CBC, BMP, LFTs, INR Nephrology service is following the patient and will defer diuretic management to their service Currently on Lasix 40 mg daily and Aldactone 50 mg twice a day Extensive discussion with the patient and again have encouraged her to follow up with [facility] hepatology after discharge and continue to follow up locally Continue to monitor clinically Thank you for allowing us to participate in the care of the patient
[2020-03-02 17:08] LABS: Glucose,Whole Blood 155 mg/dL (75-99)
[2020-03-02 20:35] LABS: Glucose,Whole Blood 160 mg/dL (75-99)
[2020-03-02] MEDS: traZODone HCL 100 MG TAB PO SCH (20:44)
[2020-03-02] MEDS: ZOLPIDEM 10 MG TAB PO SCH (20:45)
[2020-03-03 06:27] LABS: Anisocytosis Moderate; Basophils # (A) 0.1 k/uL (0-0.2); Basophils % (A) 1 %; Eosinophils # (A) 0.1 k/uL (0-0.7); Eosinophils % (A) 2 %; HCT 31.4 % (34.0-46.0); Hypochromasia Marked; Lymphocytes # (A) 0.6 k/uL (1.0-4.8); Lymphocytes % (A) 12 %; MCH 25.7 pg (25.0-35.0); MCHC 30.1 g/dL (31.0-37.0); MCV 85.2 fL (80.0-100.0); Mean Platelet Volume 8.1; Microcytosis Slight; Monocytes # (A) 0.3 k/uL (0-1.0); Monocytes % (A) 6 %; Neutrophils % (A) 78 %; Poikilocytosis Slight; RBC 3.68 m/uL (3.80-5.40); RDW 22.5 % (11.5-15.5); WBC 5.1 k/uL (3.8-10.6)
[2020-03-03 06:44] LABS: HGB 9.5 gm/dL (11.4-16.0); Platelet Count 51 k/uL (150-450)
[2020-03-03 06:59] LABS: Glucose,Whole Blood 108 mg/dL (75-99)
[2020-03-03] MEDS: INSULIN ASPART (NovoLOG) 100 UNIT/ML VIAL SQ SCH ×3 (07:14→17:10)
[2020-03-03] MEDS: LACTULOSE 20 GM/30 ML CUP PO SCH (07:15)
[2020-03-03] MEDS: COLLAGENASE 250 UNIT/GM OINTMENT 30 GM TUBE TOPICAL SCH (07:15)
[2020-03-03] MEDS ORDERED: LIDOCAINE 1% INJ 10MG/ML (20 ML MDV) ONE (09:00)
[2020-03-03] MEDS ORDERED: PROPOFOL 10 MG/ML 20 ML VIAL IV ONE (09:00)
[2020-03-03] MEDS ORDERED: IV FLUID CONTINUATION 1,000 ML IV ONE ×2 (09:01)
--- NOTE | 2020-03-03 09:25 | P.PCN ---
Date of Procedure: 03/03/20 Description of Procedure: BRIEF HISTORY: 49-year-old female with multiple medical comorbiditiesincluding hypertension, hyperlipidemia, diabetes mellitus, Becker cirrhosis who presented to the hospital due to weakness and falls. The patient is well-known to the GI service and follows up in the outpatient setting. She has a history of decompensated cirrhosis requiring frequent large volume paracentesis. The patient is maintained on Aldactone 50 mg twice daily and Lasix 40 mg daily at home. She is also been given lactulose in the past for encephalopathy but does not take the medication due to her immobility and concerns over episodes of incontinence. She reports episodes of falling. On presentation laboratory evaluation significant for INR 1.7, WBC 5.5, hemoglobin 6.5, platelet count 75,000, total bilirubin 4.4, alkaline phosphatase 175, AST 43 and ALT 18. She underwent her last paracentesis prior to admission on 01/29 with 10.8 L removed and is scheduled for paracentesis today. Last EGD on 09/08/2019 significant for mild portal hypertensive gastropathy and mild duodenitis with no varices noted. PROCEDURE PERFORMED: Esophagogastroduodenoscopy with gold probe ablation. PREOPERATIVE DIAGNOSIS: Coffee-ground emesis, anemia. ESTIMATED BLOOD LOSS: Minimal. IV sedation per anesthesia. PROCEDURE: After informed consent was obtained, the patient was brought into the endoscopy unit. IV sedation was administered by Anesthesia under continuous monitoring. Initially the Olympus GIF-190 video endoscope was inserted into the mouth. Esophagus intubated without any difficulty. It was gradually advanced into the stomach and duodenum and carefully examined. The bulb and the second part of the duodenum appeared grossly normal except for some scattered punctate erythema with some active oozing of blood in the duodenal bulb suggestive of moderate gastritis with active bleeding treated with gold probe ablation with hemostasis achieved. The scope at this time was withdrawn to the stomach, adequately insufflated with air, and upon careful examination, mucosa of the antrum, body, cardia and the fundus appeared normal, except for scattered punctate erythema throughout the stomach consistent with mild portal hypertensive gastropathy. The scope was then withdrawn into the esophagus. The GE junction was located at 37 cm from the incisors. The esophagus appeared normal. There were no erosions or ulcerations or varices seen and the patient tolerated the procedure well. IMPRESSION: 1. Moderate duodenitis, with some oozing of blood noted in the duodenal bulb treated with gold probe ablation with hemostasis achieved. 2. Mild portal hypertensive gastropathy. RECOMMENDATIONS: The findings of this examination were discussed with the patient . Okay to resume full liquid diet. Continue to monitor hemoglobin and hematocrit and transfuse as needed. Continue Protonix 40 mg twice daily. Continue other medical management.
[2020-03-03] MEDS: FUROSEMIDE 40 MG TAB PO SCH (09:40)
[2020-03-03] MEDS: SPIRONOLACTONE 25 MG TAB PO SCH ×2 (09:40→21:49)
[2020-03-03] MEDS: lamoTRIgine 25 MG TAB PO SCH ×2 (09:41→21:59)
[2020-03-03] MEDS: FOLIC ACID 1 MG TAB PO SCH (09:41)
[2020-03-03] MEDS: PANTOPRAZOLE 40 MG TABLET PO SCH ×2 (09:41→17:12)
[2020-03-03] MEDS: SERTRALINE 100 MG TAB PO SCH (09:41)
[2020-03-03] MEDS: MAGNESIUM OXIDE 400 MG TAB PO SCH (09:41)
[2020-03-03] MEDS: SODIUM FERRIC GLUCONAT-SUCROSE 125 MG in SODIUM CHLORIDE 0.9% 100 ML IVPB SCH (10:17)
[2020-03-03] MEDS ORDERED: ONDANSETRON 4 MG/2 ML VIAL IVP PRN (10:44)
[2020-03-03 11:03] LABS: African American GFR (CKD) 62.3 (60.0-200.0); Anion Gap 6.8 mmol/L (4.00-12.00); BUN/Creat Ratio 26.67 Ratio (12.00-20.00); Calcium 8.4 mg/dL (8.7-10.3); Carbon Dioxide 26.2 mmol/L (21.6-31.8); Non-African American GFR(CKD) 53.8 (60.0-200.0); Potassium 3.8 mmol/L (3.5-5.5)
[2020-03-03 11:54] LABS: Glucose,Whole Blood 131 mg/dL (75-99)
--- NOTE | 2020-03-03 15:02 | PN ---
PROGRESS NOTE Patient is seen for followup for acute kidney injury and hyponatremia. Her renal function has improved with creatinine currently at about 1.2 mg/dL and sodium is up to 135. The patient is currently going down for an EGD. This morning vital signs are reviewed. Blood pressure was 108/70, heart rate 96 per minute, patient is afebrile. She is euvolemic. [employer]OM TEACHER exam is grossly intact. Patient has no chest pains or shortness of breath. LABS: Show sodium 135, potassium 3.8, chloride 102, BUN 32, serum creatinine 1.2. Hemoglobin is 9.5 g/dL. ASSESSMENT: 1. Acute kidney injury, currently improved. Etiology was severe anemia, currently nonoliguric. Doubt hepatorenal syndrome. 2. Nonalcoholic fatty liver cirrhosis. 3. Acute anemia. No active bleeding noted. Scheduled for EGD today. 4. Hyponatremia, maintained on oral Lasix. The patient is hypervolemic. Continue with the Lasix for now. PLAN: Continue with Lasix. Repeat labs in a.m. Encourage increased oral intake. MMODL / IJN: [id number] /
--- NOTE | 2020-03-03 15:22 | P.PN ---
Subjective Progress Note Date: 03/03/20 Patient is feeling well today. She denies any abdominal pain. No acute events overnight reported to me by nursing staff. Objective - Vital Signs Vital signs: Vital Signs Temp 97.7 F 03/03/20 09:27 Pulse 96 03/03/20 10:25 Resp 17 03/03/20 09:27 BP 108/70 03/03/20 10:25 Pulse Ox 97 03/03/20 10:25 Intake & Output 03/02/20 03/03/20 03/03/20 18:59 06:59 18:59 Intake Total 310 400 Output Total 1150 Balance 310 -1150 400 Intake: IV 200 Intake, IV Titration 200 Amount Sodium Ferric Gluconat- 100 Sucrose 125 mg In Sodium Chloride 0.9% 100 ml @ 100 mls/hr IVPB DAILY WOO Rx#:[id number] cefTRIAXone 1 gm In 100 Sodium Chloride 0.9% 50 ml @ 100 mls/hr IVPB Q24HR WOO Rx#:[id number] Blood Product 310 Rc As-1 Unit 310 [id number] Output: Urine 1150 Other: Voiding Method Incontinent Incontinent Incontinent - Exam General: The patient is awake and alert, in no distress Eye: there is normal conjunctiva bilaterally. Neck: The neck is supple, there is no JVD. Cardiovascular: Normal S1-S2, no S3-S4, no murmurs. Respiratory: Lungs clear to auscultation bilaterally Gastrointestinal: Abdomen is soft, nontender Musculoskeletal: There is no pedal edema. Neurological:. Speech is normal. Skin: Skin is warm and dry - Labs CBC & Chem 7: 03/03/20 06:08 03/03/20 06:08 Labs: Abnormal Lab Results - Last 24 Hours (Table) 02/29/20 03/02/20 03/02/20 Range/Units 05:19 17:07 20:34 RBC (3.80-5.40) m/uL Hgb (11.4-16.0) gm/dL Hct (34.0-46.0) % MCHC (31.0-37.0) g/dL RDW (11.5-15.5) % Plt Count (150-450) k/uL Lymphocytes # (1.0-4.8) k/uL BUN (9.0-27.0) mg/dL Est GFR (CKD-EPI)NonAf (60.0-200.0) BUN/Creatinine Ratio (12.00-20.00) Ratio POC Glucose (mg/dL) 155 H 160 H (75-99) mg/dL Calcium (8.7-10.3) mg/dL Crossmatch See Detail 03/03/20 03/03/20 03/03/20 Range/Units 06:08 06:08 06:58 RBC 3.68 L (3.80-5.40) m/uL Hgb 9.5 L D (11.4-16.0) gm/dL Hct 31.4 L (34.0-46.0) % MCHC 30.1 L (31.0-37.0) g/dL RDW 22.5 H (11.5-15.5) % Plt Count 51 L (150-450) k/uL Lymphocytes # 0.6 L (1.0-4.8) k/uL BUN 32.0 H (9.0-27.0) mg/dL Est GFR (CKD-EPI)NonAf 53.8 L (60.0-200.0) BUN/Creatinine Ratio 26.67 H (12.00-20.00) Ratio POC Glucose (mg/dL) 108 H (75-99) mg/dL Calcium 8.4 L (8.7-10.3) mg/dL Crossmatch 03/03/20 Range/Units 11:52 RBC (3.80-5.40) m/uL Hgb (11.4-16.0) gm/dL Hct (34.0-46.0) % MCHC (31.0-37.0) g/dL RDW (11.5-15.5) % Plt Count (150-450) k/uL Lymphocytes # (1.0-4.8) k/uL BUN (9.0-27.0) mg/dL Est GFR (CKD-EPI)NonAf (60.0-200.0) BUN/Creatinine Ratio (12.00-20.00) Ratio POC Glucose (mg/dL) 131 H (75-99) mg/dL Calcium (8.7-10.3) mg/dL Crossmatch Microbiology - Last 24 Hours (Table) 03/01/20 13:55 Gram Stain - Preliminary Paracentesis Fluid Body Fluid Culture - Preliminary Assessment and Plan Assessment: This is a 49-year-old female with complex past medical history noted below who presented to the emergency room with worsening weakness. Patient was evaluated and admitted to the hospital for further management of her medical problems noted below. 1. Generalized weakness: PT/OT consulted. Patient would benefit from placement to half-way facility for rehab. Plan to [facility] to [facility] 2. Acute kidney injury secondary to Acute tubular necrosis: Secondary to hypotension and anemia. Seen and evaluated by nephrology. No hydronephrosis on ultrasound. Creatinine improved 3. Decompensated liver cirrhosis with ascites and thrombocytopenia secondary to splenic sequestration: Status post paracentesis on 03/01 with approximately 8 L removed during this admission. Patient received albumin. She requires frequent paracentesis. Continue diuretics as managed by nephrology. 4. Complicated urinary tract infection: Started on IV ceftriaxone. Unfortunately urine culture were not sent 5. Anemia of chronic disease with acute on chronic blood loss anemia: Status post 2 unit of PRBC transfused this admission. Underwent EGD on 03/02 showing moderate duodenitis with some oozing blood status post ablation. Mild portal hypertensive gastropathy noted 6. Hyperlipidemia 7. Type 2 diabetes 8. Essential hypertension, Palliative care consult requested. Full Code DVT PPx: Heparin TID DPOA/NOK: Mother
[2020-03-03 15:59] VITALS: RESP 16
[2020-03-03] MEDS: HYDROcodone/APAP 5-325MG 1 EACH TAB PO PRN ×2 (16:15→21:48)
[2020-03-03 17:00] LABS: Glucose,Whole Blood 151 mg/dL (75-99)
[2020-03-03 20:20] LABS: Glucose,Whole Blood 130 mg/dL (75-99)
[2020-03-03] MEDS: traZODone HCL 100 MG TAB PO SCH (21:49)
[2020-03-03] MEDS: ZOLPIDEM 10 MG TAB PO SCH (21:49)
[2020-03-04 07:10] LABS: Glucose,Whole Blood 135 mg/dL (75-99)
[2020-03-04 07:23] LABS: Anisocytosis Moderate; HCT 26.5 % (34.0-46.0); Hypochromasia Marked; MCH 25.5 pg (25.0-35.0); MCHC 29.4 g/dL (31.0-37.0); MCV 86.8 fL (80.0-100.0); Microcytosis Slight; Poikilocytosis Slight; RBC 3.05 m/uL (3.80-5.40); WBC 6.5 k/uL (3.8-10.6)
[2020-03-04 08:01] LABS: HGB 7.8 gm/dL (11.4-16.0); Platelet Count 55 k/uL (150-450)
[2020-03-04] MEDS: INSULIN ASPART (NovoLOG) 100 UNIT/ML VIAL SQ SCH ×3 (08:09→16:40)
[2020-03-04] MEDS: COLLAGENASE 250 UNIT/GM OINTMENT 30 GM TUBE TOPICAL SCH (08:10)
[2020-03-04] MEDS: FUROSEMIDE 40 MG TAB PO SCH (08:19)
[2020-03-04] MEDS: SERTRALINE 100 MG TAB PO SCH (08:19)
[2020-03-04] MEDS: SPIRONOLACTONE 25 MG TAB PO SCH ×2 (08:20→20:10)
[2020-03-04] MEDS: LACTULOSE 20 GM/30 ML CUP PO SCH (08:20)
[2020-03-04] MEDS: MAGNESIUM OXIDE 400 MG TAB PO SCH (08:20)
[2020-03-04] MEDS: FOLIC ACID 1 MG TAB PO SCH (08:20)
[2020-03-04] MEDS: lamoTRIgine 25 MG TAB PO SCH ×2 (08:20→20:09)
[2020-03-04] MEDS: PANTOPRAZOLE 40 MG TABLET PO SCH ×2 (08:24→16:43)
[2020-03-04] MEDS: SODIUM FERRIC GLUCONAT-SUCROSE 125 MG in SODIUM CHLORIDE 0.9% 100 ML IVPB SCH (09:07)
[2020-03-04 09:58] LABS: Basophils # (M) 0.07 k/uL (0-0.2); Eosinophils # (M) 0.13 k/uL (0-0.7); Lymphocytes # (M) 0.65 k/uL (1.0-4.8); Monocytes # (M) 0.39 k/uL (0-1.0); Neutrophils # (M) 5.14 k/uL (1.3-7.7); Neutrophils % (M) 79 %
--- NOTE | 2020-03-04 11:16 | P.PN ---
Subjective Progress Note Date: 03/04/20 Patient is feeling well today. She denies any abdominal pain. No acute events overnight reported to me by nursing staff. Objective - Vital Signs Vital signs: Vital Signs Temp 98.0 F 03/04/20 07:00 Pulse 98 03/04/20 07:00 Resp 16 03/04/20 07:00 BP 107/69 03/04/20 07:00 Pulse Ox 92 L 03/04/20 07:00 Intake & Output 03/03/20 03/04/20 03/04/20 18:59 06:59 18:59 Intake Total 400 150 Output Total 800 Balance 400 -800 150 Intake: IV 200 Intake, IV Titration 200 150 Amount Sodium Ferric Gluconat- 100 100 Sucrose 125 mg In Sodium Chloride 0.9% 100 ml @ 100 mls/hr IVPB DAILY WOO Rx#:[id number] cefTRIAXone 1 gm In 100 50 Sodium Chloride 0.9% 50 ml @ 100 mls/hr IVPB Q24HR WOO Rx#:[id number] Output: Urine 800 Other: Voiding Method Incontinent Incontinent Incontinent - Exam General: The patient is awake and alert, in no distress Eye: there is normal conjunctiva bilaterally. Neck: The neck is supple, there is no JVD. Cardiovascular: Normal S1-S2, no S3-S4, no murmurs. Respiratory: Lungs clear to auscultation bilaterally Gastrointestinal: Abdomen is soft, nontender Musculoskeletal: There is no pedal edema. Neurological:. Speech is normal. Skin: Skin is warm and dry - Labs CBC & Chem 7: 03/04/20 06:42 03/03/20 06:08 Labs: Abnormal Lab Results - Last 24 Hours (Table) 03/03/20 03/03/20 03/03/20 Range/Units 11:52 16:58 20:16 RBC (3.80-5.40) m/uL Hgb (11.4-16.0) gm/dL Hct (34.0-46.0) % MCHC (31.0-37.0) g/dL RDW (11.5-15.5) % Plt Count (150-450) k/uL Lymphocytes # (Manual) (1.0-4.8) k/uL POC Glucose (mg/dL) 131 H 151 H 130 H (75-99) mg/dL 03/04/20 03/04/20 Range/Units 06:42 07:09 RBC 3.05 L (3.80-5.40) m/uL Hgb 7.8 L D (11.4-16.0) gm/dL Hct 26.5 L (34.0-46.0) % MCHC 29.4 L (31.0-37.0) g/dL RDW 23.0 H (11.5-15.5) % Plt Count 55 L (150-450) k/uL Lymphocytes # (Manual) 0.65 L (1.0-4.8) k/uL POC Glucose (mg/dL) 135 H (75-99) mg/dL Microbiology - Last 24 Hours (Table) 03/01/20 13:55 Anaerobic Culture - Preliminary Paracentesis Fluid 03/01/20 13:55 Gram Stain - Preliminary Paracentesis Fluid Body Fluid Culture - Preliminary Assessment and Plan Assessment: This is a 49-year-old female with complex past medical history noted below who presented to the emergency room with worsening weakness. Patient was evaluated and admitted to the hospital for further management of her medical problems noted below. 1. Generalized weakness: PT/OT consulted. Patient would benefit from placement to [facility] facility for rehab. Plan to discharge to [facility] 2. Acute kidney injury secondary to Acute tubular necrosis: Secondary to hypotension and anemia. Seen and evaluated by nephrology. No hydronephrosis on ultrasound. Creatinine improved 3. Decompensated liver cirrhosis with ascites and chronic thrombocytopenia secondary to splenic sequestration: Status post paracentesis on 03/01 with approximately 8 L removed during this admission. Patient received albumin. She requires frequent paracentesis. Continue diuretics as managed by nephrology. 4. Complicated urinary tract infection: Started on IV ceftriaxone. Unfortunately urine culture were not sent. Last dose of antibiotic 03/05 5. Anemia of chronic disease with acute on chronic blood loss anemia: Status post 2 unit of PRBC transfused this admission. Underwent EGD on 03/02 showing moderate duodenitis with some oozing blood status post ablation. Mild portal hypertensive gastropathy noted. Continue Protonix twice daily. 6. Hyperlipidemia 7. Type 2 diabetes 8. Essential hypertension, Palliative care consult requested. Plan to discharge to [facility] tomorrow
[2020-03-04 11:33] LABS: Glucose,Whole Blood 152 mg/dL (75-99)
--- NOTE | 2020-03-04 13:29 | PN ---
PROGRESS NOTE The patient is seen for followup for hyponatremia and acute kidney injury. Renal function is stable. Serum creatinine was down to 1.2 yesterday, sodium was 135. The patient had an EGD done yesterday by Dr. Read which showed moderate duodenitis with oozing of blood noted in the duodenal bulb and portal hypertensive gastropathy. EXAMINATION: Today patient is comfortable. Blood pressure 107/69, heart rate 98 per minute, she is afebrile. Examination of the heart S1, S2. Examination of the lungs, bilateral breath sounds are heard. Abdomen is soft, nontender, obese. Examination of lower extremities shows edema 2+ bilaterally. [employer] LIBRARY DIRECTOR exam grossly intact. LABS: No labs available from today. Hemoglobin was 7.8. ASSESSMENT: 1. Acute kidney injury on initial admission, currently improved. 2. Hyponatremia, mostly hypovolemic, now resolved. 3. Severe anemia on admission, mostly associated with the acute gastrointestinal bleed. 4. Nonalcoholic fatty liver disease. PLAN: Continue with oral Lasix. Continue with spironolactone as well. Check labs in a.m. Continue with IV iron for iron deficiency. MMODL / IJN: [id number] /
[2020-03-04 16:22] LABS: Glucose,Whole Blood 146 mg/dL (75-99)
[2020-03-04] MEDS: traZODone HCL 100 MG TAB PO SCH (20:09)
[2020-03-04] MEDS: ZOLPIDEM 10 MG TAB PO SCH (20:09)
[2020-03-04] MEDS: HYDROcodone/APAP 5-325MG 1 EACH TAB PO PRN (20:10)
[2020-03-04] MEDS ORDERED: LORazepam 1 MG TAB PO PRN (20:10)
--- NOTE | 2020-03-04 20:14 | P.PN ---
Subjective Progress Note Date: 03/04/20 Principal diagnosis: decompensated cirrhosis, ascites, anemia the patient is seen lying in bed no acute events. No signs or symptoms of GI bleeding. Tolerating diet. Objective - Vital Signs Vital signs: Vital Signs Temp 98.0 F 03/04/20 07:00 Pulse 98 03/04/20 07:00 Resp 16 03/04/20 07:00 BP 107/69 03/04/20 07:00 Pulse Ox 92 L 03/04/20 07:00 Intake & Output 03/03/20 03/04/20 03/04/20 18:59 06:59 18:59 Intake Total 400 150 Output Total 800 Balance 400 -800 150 Intake: IV 200 Intake, IV Titration 200 150 Amount Sodium Ferric Gluconat- 100 100 Sucrose 125 mg In Sodium Chloride 0.9% 100 ml @ 100 mls/hr IVPB DAILY WOO Rx#:[id number] cefTRIAXone 1 gm In 100 50 Sodium Chloride 0.9% 50 ml @ 100 mls/hr IVPB Q24HR WOO Rx#:[id number] Output: Urine 800 Other: Voiding Method Incontinent Incontinent Incontinent - Exam On physical examination, patient appears comfortable in no apparent distress. HEAD: Normocephalic, atraumatic. EYES: No scleral icterus. No conjunctival injection. MOUTH: No lesions, tongue midline. NECK: Trachea midline, no gross abnormalities. ABDOMEN: Soft, obese abdomen mildly distended. Bowel sounds are positive. No organomegaly. No guarding or rigidity. EXTREMITIES: No pedal edema. SKIN: No rashes, no jaundice. NEUROLOGIC: Alert and oriented x3. No focal deficits. - Labs CBC & Chem 7: 03/04/20 06:42 03/03/20 06:08 Labs: Abnormal Lab Results - Last 24 Hours (Table) 03/03/20 03/03/20 03/03/20 Range/Units 11:52 16:58 20:16 RBC (3.80-5.40) m/uL Hgb (11.4-16.0) gm/dL Hct (34.0-46.0) % MCHC (31.0-37.0) g/dL RDW (11.5-15.5) % Plt Count (150-450) k/uL Lymphocytes # (Manual) (1.0-4.8) k/uL POC Glucose (mg/dL) 131 H 151 H 130 H (75-99) mg/dL 03/04/20 03/04/20 03/04/20 Range/Units 06:42 07:09 11:32 RBC 3.05 L (3.80-5.40) m/uL Hgb 7.8 L D (11.4-16.0) gm/dL Hct 26.5 L (34.0-46.0) % MCHC 29.4 L (31.0-37.0) g/dL RDW 23.0 H (11.5-15.5) % Plt Count 55 L (150-450) k/uL Lymphocytes # (Manual) 0.65 L (1.0-4.8) k/uL POC Glucose (mg/dL) 135 H 152 H (75-99) mg/dL Microbiology - Last 24 Hours (Table) 03/01/20 13:55 Anaerobic Culture - Preliminary Paracentesis Fluid 03/01/20 13:55 Gram Stain - Preliminary Paracentesis Fluid Body Fluid Culture - Preliminary Assessment and Plan (1) Cirrhosis Narrative/Plan: 49-year-old female with multiple medical comorbidities including decompensated Becker cirrhosis requiring frequent high-volume paracentesis. The patient is currently managed withLasix 40 mg daily and Aldactone 50 mg twice a day as well as frequent high-volume paracentesis. Previous EGD in 08/2019 significant for mild portal hypertensive gastropathy with no varices noted. The patient presen matthew for weakness and falls. She has been prescribed lactulose in the outpatient setting has been noncompliant due to concerns over soiling herself. The patient was also referred to [facility] but has not followed up with hepatology service at that facility as of yet, she reports she has not received a phone call to set up the appointment. the patient was taken for EGD for evaluation of anemia and coffee-ground emesis, with findings of portal hypertensive gastropathy and duodenitis with some active oozing of blood treated with coagulation therapy. Current Visit: No Status: Acute Code(s): K74.60 - UNSPECIFIED CIRRHOSIS OF LIVER SNOMED Code(s): 43629921 (2) Hyperbilirubinemia Current Visit: Yes Status: Acute Code(s): E80.6 - OTHER DISORDERS OF BILIRUBIN METABOLISM SNOMED Code(s): 31950784 (3) Abdominal distention Current Visit: No Status: Acute Code(s): R14.0 - ABDOMINAL DISTENSION (GASEOUS) SNOMED Code(s): 42291195 (4) Portal hypertensive gastropathy Current Visit: Yes Status: Acute Code(s): K76.6 - PORTAL HYPERTENSION; K31 .89 - OTHER DISEASES OF STOMACH AND DUODENUM SNOMED Code(s): 851112765 (5) Duodenitis Current Visit: Yes Status: Acute Code(s): K29.80 - DUODENITIS WITHOUT BLEEDING SNOMED Code(s): 93549309 Plan: supportive care Okay for sodium restricted diet Iron supplementation ordered Continue to monitor CBC, BMP, LFTs, INR Nephrology service is following the patient and will defer diuretic management to their service Currently on Lasix 40 mg daily and Aldactone 50 mg twice a day No plan for endoscopic evaluation at this time Extensive discussion with the patient and again have encouraged her to follow up with [facility] hepatology after discharge and continue to follow up locally Continue to monitor clinically thank you for allowing us to participate in the care of the patient
[2020-03-04 20:57] LABS: Glucose,Whole Blood 172 mg/dL (75-99)
[2020-03-05 01:39] VITALS: PULSE 103
[2020-03-05] MEDS: HYDROcodone/APAP 5-325MG 1 EACH TAB PO PRN ×2 (05:29→12:31)
[2020-03-05 07:07] LABS: Glucose,Whole Blood 152 mg/dL (75-99)
[2020-03-05 07:58] VITALS: BP 109/72; TEMP 97.9
[2020-03-05 08:33] LABS: Anisocytosis Moderate; Basophils # (A) 0.1 k/uL (0-0.2); Basophils % (A) 1 %; Eosinophils # (A) 0.1 k/uL (0-0.7); Eosinophils % (A) 2 %; HGB 8.8 gm/dL (11.4-16.0); Hypochromasia Marked; Lymphocytes # (A) 0.6 k/uL (1.0-4.8); Lymphocytes % (A) 8 %; MCH 26.1 pg (25.0-35.0); MCHC 28.4 g/dL (31.0-37.0); Macrocytosis Slight; Mean Platelet Volume 8.4; Microcytosis Slight; Monocytes # (A) 0.5 k/uL (0-1.0); Monocytes % (A) 6 %; Neutrophils # (A) 6.2 k/uL (1.3-7.7); Neutrophils % (A) 82 %; RBC 3.38 m/uL (3.80-5.40); RDW 23.8 % (11.5-15.5); WBC 7.6 k/uL (3.8-10.6)
[2020-03-05 08:35] LABS: Platelet Count 71 k/uL (150-450)
[2020-03-05 08:36] LABS: MCV 91.8 fL (80.0-100.0)
[2020-03-05] MEDS: FOLIC ACID 1 MG TAB PO SCH (08:43)
[2020-03-05] MEDS: LACTULOSE 20 GM/30 ML CUP PO SCH (08:43)
[2020-03-05] MEDS: INSULIN ASPART (NovoLOG) 100 UNIT/ML VIAL SQ SCH ×2 (08:43→12:32)
[2020-03-05] MEDS: lamoTRIgine 25 MG TAB PO SCH (08:43)
[2020-03-05] MEDS: MAGNESIUM OXIDE 400 MG TAB PO SCH (08:44)
[2020-03-05] MEDS: FUROSEMIDE 40 MG TAB PO SCH (08:44)
[2020-03-05] MEDS: SPIRONOLACTONE 25 MG TAB PO SCH (08:44)
[2020-03-05] MEDS: PANTOPRAZOLE 40 MG TABLET PO SCH (08:44)
[2020-03-05] MEDS: SERTRALINE 100 MG TAB PO SCH (08:44)
--- NOTE | 2020-03-05 09:53 | P.DS ---
Providers Date of admission: 02/28/20 16:45 Expected date of discharge: 03/05/20 Attending physician: Mar Tobin MD Consults: 02/28/20 16:32 Consult Physician Routine Consulting Provider: Nate Read Consult Reason/Comments: hyperbilirubinemia Do you want consulting provider notified?: Yes 02/28/20 17:42 Consult Physician Routine Consulting Provider: Girish Rico Consult Reason/Comments: Therapeutic/Diagnostic Paracentesis Do you want consulting provider notified?: Yes 02/28/20 17:48 Consult Physician Routine Consulting Provider: Robb Salter Consult Reason/Comments: ATN Do you want consulting provider notified?: Yes Primary care physician: [facility] Course: This is a 49-year-old female with complex past medical history noted below who presented to the emergency room with worsening weakness. Patient was evaluated and admitted to the hospital for further management of her medical problems noted below. 1. Generalized weakness: PT/OT consulted. Patient would benefit from placement to [facility]. Plan to discharge to [facility] 2. Acute kidney injury secondary to Acute tubular necrosis: Secondary to hypotension and anemia. Seen and evaluated by nephrology. No hydronephrosis on ultrasound. Creatinine improved 3. Decompensated liver cirrhosis with ascites and chronic thrombocytopenia seco ndary to splenic sequestration: Status post paracentesis on 03/01 with approximately 8 L removed during this admission. Patient received albumin. She requires frequent paracentesis. Continue diuretics as ordered. 4. Complicated urinary tract infection: Started on IV ceftriaxone. Unfortunately urine culture were not sent. Finished antibiotic course Last dose of antibiotic 03/05 5. Anemia of chronic disease with acute on chronic blood loss anemia: Status post 2 unit of PRBC transfused this admission. Underwent EGD on 03/02 showing moderate duodenitis with some oozing blood status post ablation. Mild portal hypertensive gastropathy noted. Continue Protonix twice daily. 6. Hyperlipidemia 7. Type 2 diabetes 8. Essential hypertension, Palliative care consult requested. Plan to discharge to [facility] for subacute rehab Patient Condition at Discharge: Poor Plan - Discharge Summary New Discharge Prescriptions: New Spironolactone [Aldactone] 50 mg PO BID #0 tab Continue Sertraline [Zoloft] 200 mg PO DAILY ARIPiprazole [Abilify] 20 mg PO DAILY lamoTRIgine [LaMICtal] 25 mg PO BID Pantoprazole [Protonix] 40 mg PO AC-BID #60 tablet. traZODone HCL 200 mg PO HS INSULIN LISPRO (humaLOG) [humaLOG] See Protocol SQ AC-TID Lactulose 20 gm PO DAILY Folic Acid 1 mg PO DAILY Zolpidem [Ambien] 10 mg PO HS #5 tab Magnesium Oxide [Mag-Ox] 400 mg PO DAILY #30 tab Collagenase [Santyl] 1 applic TOPICAL DAILY #1 tube Furosemide [Lasix] 40 mg PO DAILY LORazepam [Ativan] 1 mg PO DAILY PRN #3 tab PRN Reason: Anxiety Discontinued Acetaminophen Tab [Tylenol] 650 mg PO Q12H PRN PRN Reason: Pain Potassium Chloride ER [K-Dur 10] 10 meq PO BID #0 Cephalexin [Keflex] 500 mg PO Q8HR #21 cap Spironolactone 50 mg PO BID Discharge Medication List Sertraline [Zoloft] 200 mg PO DAILY 09/02/14 [History] ARIPiprazole [Abilify] 20 mg PO DAILY 09/13/18 [History] lamoTRIgine [LaMICtal] 25 mg PO BID 08/23/19 [History] Pantoprazole [Protonix] 40 mg PO AC-BID #60 tablet. 09/09/19 [Rx] traZODone HCL 200 mg PO HS 10/31/19 [History] Folic Acid 1 mg PO DAILY 12/12/19 [History] INSULIN LISPRO (humaLOG) [humaLOG] See Protocol SQ AC-TID 12/12/19 [History] Lactulose 20 gm PO DAILY 12/12/19 [History] Zolpidem [Ambien] 10 mg PO HS #5 tab 12/13/19 [Rx] Magnesium Oxide [Mag-Ox] 400 mg PO DAILY #30 tab 01/07/20 [Rx] Collagenase [Santyl] 1 applic TOPICAL DAILY #1 tube 02/24/20 [Rx] Furosemide [Lasix] 40 mg PO DAILY 02/24/20 [History] LORazepam [Ativan] 1 mg PO DAILY PRN #3 tab 03/05/20 [Rx] Spironolactone [Aldactone] 50 mg PO BID #0 tab 03/05/20 [Rx] Follow up Appointment(s)/Referral(s): [facility] [NON-STAFF] - As Needed () Woodrow Richards [Primary Care Provider] - 1-2 days Discharge Disposition: TRANSFER TO SNF/ECF
--- NOTE | 2020-03-05 09:58 | P.PN ---
Subjective Progress Note Date: 03/05/20 Principal diagnosis: Elevated LFTs She was seen and examined sitting up in a bedside recliner. She states she is feeling better today. She is denying any nausea, vomiting, or abdominal pain. She denies any signs of any GI bleed symptoms. Plan is for discharge tomorrow to [facility]. Objective - Vital Signs Vital signs: Vital Signs Temp 97.9 F 03/05/20 07:00 Pulse 103 H 03/05/20 07:00 Resp 16 03/05/20 07:00 BP 109/72 03/05/20 07:00 Pulse Ox 94 L 03/05/20 07:00 Intake & Output 03/04/20 03/05/20 03/05/20 18:59 06:59 18:59 Intake Total 150 Output Total 600 0 Balance -450 0 Weight 117.934 kg Intake: Intake, IV Titration 150 Amount Sodium Ferric Gluconat- 100 Sucrose 125 mg In Sodium Chloride 0.9% 100 ml @ 100 mls/hr IVPB DAILY WOO Rx#:[id number] cefTRIAXone 1 gm In 50 Sodium Chloride 0.9% 50 ml @ 100 mls/hr IVPB Q24HR WOO Rx#:[id number] Output: Urine 600 0 Other: Voiding Method Incontinent Incontinent Incontinent - Exam General appearance: The patient is alert, oriented, in no acute distress. HET: Head is normocephalic and atraumatic. Conjunctiva pink. Sclera anicteric. Neck: Supple without lymphadenopathy. Abdomen: Soft,mild tenderness, nondistended with bowel sounds. No guarding or rigidity. Extremities: Normal skin color and turgor. No pedal edema Neurological: No focal deficits. Alert and oriented 3. - Labs CBC & Chem 7: 03/05/20 07:22 03/03/20 06:08 Labs: Abnormal Lab Results - Last 24 Hours (Table) 03/04/20 03/04/20 03/04/20 Range/Units 06:42 11:32 16:21 RBC (3.80-5.40) m/uL Hgb (11.4-16.0) gm/dL Hct (34.0-46.0) % MCHC (31.0-37.0) g/dL RDW (11.5-15.5) % Plt Count 55 L (150-450) k/uL Lymphocytes # (1.0-4.8) k/uL Lymphocytes # (Manual) 0.65 L (1.0-4.8) k/uL POC Glucose (mg/dL) 152 H 146 H (75-99) mg/dL 03/04/20 03/05/20 03/05/20 Range/Units 20:56 07:06 07:22 RBC 3.38 L (3.80-5.40) m/uL Hgb 8.8 L (11.4-16.0) gm/dL Hct 31.0 L (34.0-46.0) % MCHC 28.4 L (31.0-37.0) g/dL RDW 23.8 H (11.5-15.5) % Plt Count 71 L (150-450) k/uL Lymphocytes # 0.6 L (1.0-4.8) k/uL Lymphocytes # (Manual) (1.0-4.8) k/uL POC Glucose (mg/dL) 172 H 152 H (75-99) mg/dL Assessment and Plan (1) Cirrhosis Narrative/Plan: 49-year-old female with multiple medical comorbidities including decompensated Becker cirrhosis requiring frequent high-volume paracentesis. The patient is currently managed with Lasix 40 mg daily and Aldactone 50 mg twice a day as well as frequent high-volume paracentesis. Previous EGD in 08/2019 significant for mild portal hypertensive gastropathy with no varices noted. The patient presen matthew for weakness and falls. She has been prescribed lactulose in the outpatient setting has been noncompliant due to concerns over soiling herself. The patient was also referred to [facility] but has not followed up with hepatology service at that facility as of yet, she reports she has not received a phone call to set up the appointment. She underwent a paracentesis this admission. S he is status post 2 units of PRBC this admission. She underwent EGD with findings of moderate duodenitis with losing in the duodenal bulb with gold probe ablation and mild portal hypertension. Current Visit: No Status: Acute Code(s): K74.60 - UNSPECIFIED CIRRHOSIS OF LIVER SNOMED Code(s): 44649777 (2) Hyperbilirubinemia Current Visit: Yes Status: Acute Code(s): E80.6 - OTHER DISORDERS OF BILIR UBIN METABOLISM SNOMED Code(s): 01115752 (3) Abdominal distention Current Visit: No Status: Acute Code(s): R14.0 - ABDOMINAL DISTENSION (GASEOUS) SNOMED Code(s): 70340133 Plan: Supportive care She is status post EGD Okay for sodium restricted diet Transfuse as needed Iron supplementation ordered Continue to monitor CBC, BMP, LFTs, INR Nephrology service is following the patient and will defer diuretic management to their service Currently on Lasix 40 mg daily and Aldactone 50 mg twice a day Extensive discussion with the patient and again have encouraged her to follow up with [facility] hepatology after discharge and continue to follow up locally Continue to monitor clinically Thank you for allowing us to participate in the care of the patient The impression and plan of care has been dictated as directed. I performed a history and examination of this patient, discussed the same with the dictator. I agree with the dictator's note ,documented as a scribe. Any additional findings or plans will be noted.
[2020-03-05 11:03] LABS: African American GFR (CKD) 69.2 (60.0-200.0); Albumin 2.3 g/dL (3.80-4.90); Albumin/Globulin Ratio 0.64 (1.60-3.17); Anion Gap 6.7 mmol/L (4.00-12.00); BUN/Creat Ratio 36.36 Ratio (12.00-20.00); Calcium 8.2 mg/dL (8.7-10.3); Carbon Dioxide 23.3 mmol/L (21.6-31.8); Globulin 3.6 g/dL (1.6-3.3); Non-African American GFR(CKD) 59.7 (60.0-200.0); Potassium 4.3 mmol/L (3.5-5.5); Total Bilirubin 2.1 mg/dL (0.2-1.2); Total Protein 5.9 g/dL (6.2-8.2)
[2020-03-05 11:43] LABS: Glucose,Whole Blood 197 mg/dL (75-99)
[2020-03-05] MEDS: COLLAGENASE 250 UNIT/GM OINTMENT 30 GM TUBE TOPICAL SCH (12:18)
--- NOTE | 2020-03-05 12:49 | P.CONS ---
History of Present Illness - Reason for Consult Consult date: 03/05/20 wound care - History of Present Illness this is a 49-year-old pleasant female with past medical history significant for diabetes mellitus, hyper lipidemia, hypertension, fatty non- lcoholic liver disease, paracentesis every . patient states that she noticed the ulceration approximately 3 weeks ago. She has been utilizing a wet to dry dressing to the site per her home care nurse. Patient has significant pain and discomfort to the site. She says the majority of her time in bed. Review of Systems Review Of Systems: Constitutional: No fever, no chills, no night sweats. No weight change. No weakness, fatigue or lethargy. No daytime sleepiness. Integumentary:reports wounds, no lesions. No rash or pruritus. No unusual bruising. No change in hair or nails. Past Medical History Past Medical History: Diabetes Mellitus, Hyperlipidemia, Hypertension, Liver Disease Additional Past Medical History / Comment(s): Fatty non alcholic liver disease - Acites, paracentesis every other . 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 MDRO Source:: VRE URINE/ MRSA ABDOMEN Past Surgical History: Section, Hysterectomy Additional Past Surgical History / Comment(s): Oophrarectomy, large volume parac entesis Past Anesthesia/Blood Transfusion Reactions: No Reported Reaction Additional Past Anesthesia/Blood Transfusion Reaction / Comm: has had transf usions without problems Past Psychological History: Bipolar, Depression Smoking Status: Never smoker Past Alcohol Use History: None Reported Past Drug Use History: None Reported - Past Family History Father Family Medical History: COPD, Hyperlipidemia, Hypertension, Renal Disease Mother Family Medical History: Hyperlipidemia, Hypertension Medications and Allergies Home Medications Medication Instructions Recorded Confirmed Type Sertraline [Zoloft] 200 mg PO DAILY 09/02/14 02/28/20 History ARIPiprazole [Abilify] 20 mg PO DAILY 09/13/18 02/28/20 History lamoTRIgine [LaMICtal] 25 mg PO BID 08/23/19 02/28/20 History Pantoprazole [Protonix] 40 mg PO AC-BID #60 tablet. 09/09/19 02/28/20 Rx traZODone HCL 200 mg PO HS 10/31/19 02/28/20 History Folic Acid 1 mg PO DAILY 12/12/19 02/28/20 History INSULIN LISPRO (humaLOG) [humaLOG] See Protocol SQ AC-TID 12/12/19 02/28/20 History Lactulose 20 gm PO DAILY 12/12/19 02/28/20 History Magnesium Oxide [Mag-Ox] 400 mg PO DAILY #30 tab 01/07/20 02/28/20 Rx Collagenase [Santyl] 1 applic TOPICAL DAILY #1 tube 02/24/20 02/28/20 Rx Furosemide [Lasix] 40 mg PO DAILY 02/24/20 02/28/20 History LORazepam [Ativan] 1 mg PO DAILY PRN #3 tab 03/05/20 Rx Spironolactone [Aldactone] 50 mg PO BID #0 tab 03/05/20 Rx Zolpidem [Ambien] 10 mg PO HS #5 tab 03/05/20 Rx Allergies Allergy/AdvReac Type Severity Reaction Status Date / Time Penicillins Allergy Rash/Hives Verified 02/28/20 13:38 Sulfa (Sulfonamide Allergy Rash/Hives Verified 02/28/20 13:38 Antibiotics) erythromycin base AdvReac Abdominal Verified 02/28/20 13:38 Pain meperidine HCl [From Demerol] AdvReac Confusion/N Verified 02/28/20 13:38 ausea Physical Exam Vitals: Vital Signs Temp Pulse Resp BP Pulse Ox 03/05/20 07:00 97.9 F 103 H 16 109/72 94 L 03/05/20 04:35 16 03/05/20 00:48 98.4 F 103 H 16 95/53 91 L 03/05/20 00:00 16 03/04/20 19:31 97.9 F 95 16 97/51 93 L 03/04/20 19:22 16 03/04/20 15:00 98.0 F 94 16 105/68 92 L Intake and Output 03/04/20 03/05/20 03/05/20 22:59 06:59 14:59 Output Total 600 Balance -600 Output: Urine 600 Other: Voiding Method Incontinent Incontinent Incontinent Physical exam: General Appearance: Alert, cooperative, no distress, appears stated age. Skin: full thickness nonhealing stage II pressure ulcers to the coccyx. With fat layer exposure. No tunneling or undermining. Wound edges attached to wound base. Moderate granulation seen within wound bed moderate slough noted, periWound shows excoriation and maceration. all other Skin color, texture, tugor normal, no rashes or lesions. Neurologic: Alert oriented x3 Results CBC & Chem 7: 03/05/20 07:22 03/05/20 06:12 Labs: Abnormal Lab Results - Last 24 Hours (Table) 03/04/20 03/04/20 03/05/20 Range/Units 16:21 20:56 06:12 RBC (3.80-5.40) m/uL Hgb (11.4-16.0) gm/dL Hct (34.0-46.0) % MCHC (31.0-37.0) g/dL RDW (11.5-15.5) % Plt Count (150-450) k/uL Lymphocytes # (1.0-4.8) k/uL Sodium 132 L (135-145) mmol/L BUN 40.0 H (9.0-27.0) mg/dL Est GFR (CKD-EPI)NonAf 59.7 L (60.0-200.0) BUN/Creatinine Ratio 36.36 H (12.00-20.00) Ratio Glucose 141 H (70-110) mg/dL POC Glucose (mg/dL) 146 H 172 H (75-99) mg/dL Calcium 8.2 L (8.7-10.3) mg/dL Total Bilirubin 2.1 H (0.2-1.2) mg/dL AST 67 H (13-35) U/L Alkaline Phosphatase 196 H (41-126) U/L Total Protein 5.9 L (6.2-8.2) g/dL Albumin 2.30 L (3.80-4.90) g/dL Globulin 3.6 H (1.6-3.3) g/dL Albumin/Globulin Ratio 0.64 L (1.60-3.17) g/dL 03/05/20 03/05/20 03/05/20 Range/Units 07:06 07:22 11:41 RBC 3.38 L (3.80-5.40) m/uL Hgb 8.8 L (11.4-16.0) gm/dL Hct 31.0 L (34.0-46.0) % MCHC 28.4 L (31.0-37.0) g/dL RDW 23.8 H (11.5-15.5) % Plt Count 71 L (150-450) k/uL Lymphocytes # 0.6 L (1.0-4.8) k/uL Sodium (135-145) mmol/L BUN (9.0-27.0) mg/dL Est GFR (CKD-EPI)NonAf (60.0-200.0) BUN/Creatinine Ratio (12.00-20.00) Ratio Glucose (70-110) mg/dL POC Glucose (mg/dL) 152 H 197 H (75-99) mg/dL Calcium (8.7-10.3) mg/dL Total Bilirubin (0.2-1.2) mg/dL AST (13-35) U/L Alkaline Phosphatase (41-126) U/L Total Protein (6.2-8.2) g/dL Albumin (3.80-4.90) g/dL Globulin (1.6-3.3) g/dL Albumin/Globulin Ratio (1.60-3.17) g/dL Assessment and Plan (1) Pressure ulcer of coccygeal region, stage 2 Current Visit: Yes Status: Acute Code(s): L89.152 - PRESSURE ULCER OF SACRAL REGION, STAGE 2 SNOMED Code(s): 212626732 (2) Diabetes mellitus with skin ulcer Current Visit: Yes Status: Acute Code(s): E11.622 - TYPE 2 DIABETES MELLITUS WITH OTHER SKIN ULCER; L98.499 - NON-PRESSURE CHRONIC ULCER OF SKIN OF SITES W UNSP SEVERITY SNOMED Code(s): 60604886 Plan: apply honey alginate, saline moistened gauze, zinc barrier cream to the periwound and a foam border gauze. Change Thursday. Patient to continue with wound care at [facility] with the Dr. Sears. Thank you for the consultation any questions please contact the wound care center DNP note has been reviewed and discussed with Dr. Ramirez and the impression and plan of care has been directed as dictated.
--- NOTE | 2020-03-05 15:36 | PN ---
PROGRESS NOTE Patient is seen for followup for acute kidney injury and hyponatremia. Her renal function has improved significantly with creatinine about 1.1. Sodium is ranging between 130 and 135 mEq/L. The patient is sitting up in bed. She is complaining of soreness in her sacral area. She does have lower extremity edema and is maintained on oral Lasix on a daily basis. Her edema seems to have improved. PHYSICAL EXAMINATION: On examination today, blood pressure was 109/72, heart rate 103 per minute, she is afebrile. Examination of the heart S1, S2. Examination of lungs, bilateral breath sounds are heard. Abdomen is soft, nontender. Examination of lower extremities shows edema, 2+ bilaterally. PARTS COORDINATOR exam is grossly intact. ASSESSMENT: 1. Acute kidney injury, currently improved, nonoliguric. No evidence of hepatorenal syndrome. 2. Hyponatremia associated with underlying liver chronic liver disease currently improved, continue with Lasix and spironolactone. 3. Nonalcoholic fatty liver with liver cirrhosis. PLAN: Patient can be discharged on the current dose of Lasix and Aldactone. Monitor labs as outpatient. MMODL / IJN: [id number] /
--- NOTE | 2020-03-06 08:24 | US ---
Ultrasound-guided paracentesis. DATE OF EXAM: 03/01/2020 CLINICAL HISTORY: Ascites The procedure was discussed with the patient. The risks, complications, benefits, and alternatives we re discussed and any questions were answered. Informed consent was obtained. The patient was placed s upine on the ultrasound table and prepped and draped in the usual sterile fashion. All elements of maximal barrier technique were utilized. Under ultrasound guidance, access into the right lower quadrant was obtained, via the paracentesis catheter system and direct ultrasound guidanc e. Approximately 8.6 liters of straw-colored fluid was removed. The patient was stable throughout the pr ocedure and remained stable upon discharge from Department of Radiology. IMPRESSION: Successful paracentesis under ultrasound guidance.
== END 2020-03-05 14:42 | DRG 377 ==
LOC: EC 11:33 → 6NMEDSUR 16:45 → 4SSUR 02-29 13:53
PROVIDERS: ADMIT Internal Medicine; ATTEND Internal Medicine
PROC: 30233N1 Transfusion of Nonautologous Red Blood Cells into Peripheral Vein, Percutaneous Approach (ICD-10-PCS; 2020-02-28)
PROC: 0W9G3ZZ Drainage of Peritoneal Cavity, Percutaneous Approach (ICD-10-PCS; principal; 2020-03-01)
PROC: 0W3P8ZZ Control Bleeding in Gastrointestinal Tract, Via Natural or Artificial Opening Endoscopic (ICD-10-PCS; 2020-03-03)
DX: K29.81 Duodenitis with bleeding (principal); N17.0 Acute kidney failure with tubular necrosis; E87.1 Hypo-osmolality and hyponatremia; K76.6 Portal hypertension; R18.8 Other ascites; N39.0 Urinary tract infection, site not specified; Z68.41 Body mass index [BMI] 40.0-44.9, adult; J98.11 Atelectasis; D62 Acute posthemorrhagic anemia; R53.1 Weakness; E86.0 Dehydration; E86.1 Hypovolemia; E78.5 Hyperlipidemia, unspecified; E11.9 Type 2 diabetes mellitus without complications; E87.5 Hyperkalemia; Z20.828 Contact with and (suspected) exposure to other viral communicable diseases; I10 Essential (primary) hypertension; F31.9 Bipolar disorder, unspecified; K74.60 Unspecified cirrhosis of liver; D69.59 Other secondary thrombocytopenia; E66.9 Obesity, unspecified; T50.2X5A Adverse effect of carbonic-anhydrase inhibitors, benzothiadiazides and other diuretics, initial encounter; E87.70 Fluid overload, unspecified; L89.152 Pressure ulcer of sacral region, stage 2; D50.9 Iron deficiency anemia, unspecified; K31.89 Other diseases of stomach and duodenum; E88.09 Other disorders of plasma-protein metabolism, not elsewhere classified; R14.0 Abdominal distension (gaseous); D63.1 Anemia in chronic kidney disease; K75.81 Nonalcoholic steatohepatitis (NASH); R29.6 Repeated falls; Z79.899 Other long term (current) drug therapy; Z88.1 Allergy status to other antibiotic agents; Z88.0 Allergy status to penicillin; Z88.2 Allergy status to sulfonamides; Z88.8 Allergy status to other drugs, medicaments and biological substances; Z91.19 Patient's noncompliance with other medical treatment and regimen; Z90.710 Acquired absence of both cervix and uterus; Z86.73 Personal history of transient ischemic attack (TIA), and cerebral infarction without residual deficits; Z86.14 Personal history of Methicillin resistant Staphylococcus aureus infection; Z82.5 Family history of asthma and other chronic lower respiratory diseases; Z82.49 Family history of ischemic heart disease and other diseases of the circulatory system; Z98.891 History of uterine scar from previous surgery; Z98.890 Other specified postprocedural states
CPT/HCPCS: 36415; 43255; 49083; 70450; 71046; 76705; 76770; 80048; 80053; 81001; 82150; 82728; 82945; 83540; 83550; 83605; 83735; 84157; 84295; 84300; 85025; 85045; 85610; 85730; 86850; 86900; 86901; 86920; 87070; 87075; 87205; 87635; 89050; 93005; 96360; 96361; 99285

== ENCOUNTER 2020-03-13 12:57 | Day surgery (SDC) | payer MEDICARE ==
[2020-03-13] MEDS: ALBUMIN HUMAN 25% 50 ML in EMPTY BAG 1 BAG IVPB SCH ×4 (14:05→14:50)
[2020-03-13 14:43] VITALS: TEMP 97.7
[2020-03-13 14:47] VITALS: RESP 18
[2020-03-13 16:35] VITALS: BP 101/52; PULSE 90
--- NOTE | 2020-03-15 08:47 | US ---
EXAMINATION TYPE: US paracentesis abd w/image DATE OF EXAM: 03/13/2020 CLINICAL HISTORY: Ascites The procedure was discussed with the patient. The risks, complications, benefits, and alternatives we re discussed and any questions were answered. Informed consent was obtained. The patient was placed s upine on the ultrasound table and prepped and draped in the usual sterile fashion. All elements of maximal barrier technique were utilized. Under ultrasound guidance, access into the right lower quadrant was obtained, via the paracentesis catheter system and direct ultrasound guidanc e. Approximately 9.2 liters of straw-colored fluid was removed. The patient was stable throughout the pr ocedure and remained stable upon discharge from Department of Radiology. IMPRESSION: Successful therapeutic paracentesis under ultrasound guidance.
== END 2020-03-13 16:15 | disposition home or self-care (01) ==
LOC: RADPROMAIN 12:57
PROVIDERS: ATTEND Internal Medicine
DX: R18.8 Other ascites (principal)
CPT/HCPCS: 36415; 49083; P9047

== ENCOUNTER 2020-03-23 15:27 | Inpatient (IN) | payer MEDICARE ==
[2020-03-23] MEDS ORDERED: SODIUM CHLORIDE 0.9% 1,000 ML IV STA (15:37)
--- NOTE | 2020-03-23 15:46 | ED ---
Recheck HPI - General Chief Complaint: Recheck/Abnormal Lab/Rx Stated Complaint: Abnormal labs Time Seen by Provider: 03/23/20 15:35 Source: patient, RN notes reviewed, old records reviewed Mode of arrival: ambulatory Limitations: no limitations - History of Present Illness Initial Comments: This is a 49-year-old female to the ER for abnormal lab tests. Unsure of what her tests are patient states she feels very weak she had ascitic fluid drained earlier in the day had labs at the time which proved to be abnormal. She was sent DF for further evaluation management. Patient has no complaints aside from weakness now MD Complaint: abnormal lab -: unknown Returns Today for: Called Because of Abnormal Lab/Test, persistent/worsening pain related to initial visit, other (weakness) Context: called for abnormal lab result Associated Symptoms: none Treatments Prior to Arrival: other medications - Related Data Home Medications Medication Instructions Recorded Confirmed Sertraline [Zoloft] 200 mg PO DAILY 09/02/14 03/23/20 ARIPiprazole [Abilify] 20 mg PO DAILY 09/13/18 03/23/20 lamoTRIgine [LaMICtal] 25 mg PO BID 08/23/19 03/23/20 traZODone HCL 200 mg PO HS 10/31/19 03/23/20 Folic Acid 1 mg PO DAILY 12/12/19 03/23/20 INSULIN LISPRO (humaLOG) [humaLOG] See Protocol SQ AC-TID 12/12/19 03/23/20 Lactulose 20 gm PO BID 12/12/19 03/23/20 Furosemide [Lasix] 40 mg PO DAILY 02/24/20 03/23/20 Magnesium Hydroxide [Milk of 30 ml PO DIRECTED PRN 03/08/20 03/23/20 Magnesia Concentrate] Na Phos,M-B/Na Phos,Di-Ba [Fleet 1 dose RECTAL DAILY PRN 03/08/20 03/23/20 Adult] bisacodyL [Dulcolax] 10 mg RECTAL DAILY PRN 03/08/20 03/23/20 traMADol HCL [Ultram] 100 mg PO Q6HR PRN 03/08/20 03/23/20 traMADol HCl [Ultram] 50 mg PO Q6HR PRN 03/08/20 03/23/20 Non Formulary Drug 1 applic TOPICAL BID 03/23/20 03/23/20 Previous Rx's Medication Instructions Recorded Pantoprazole [Protonix] 40 mg PO AC-BID #60 tablet. 09/09/19 Magnesium Oxide [Mag-Ox] 400 mg PO DAILY #30 tab 01/07/20 Collagenase [Santyl] 1 applic TOPICAL DAILY #1 tube 02/24/20 Spironolactone [Aldactone] 50 mg PO BID #0 tab 03/05/20 Zolpidem [Ambien] 10 mg PO HS #5 tab 03/05/20 Allergies Allergy/AdvReac Type Severity Reaction Status Date / Time Penicillins Allergy Rash/Hives Verified 03/23/20 13:57 Sulfa (Sulfonamide Allergy Rash/Hives Verified 03/23/20 13:57 Antibiotics) erythromycin base AdvReac Abdominal Verified 03/23/20 13:57 Pain meperidine HCl [From Demerol] AdvReac Confusion/N Verified 03/23/20 13:57 ausea Review of Systems ROS Statement: Those systems with pertinent positive or pertinent negative responses have been documented in the HPI. ROS Other: All systems not noted in ROS Statement are negative. Past Medical History Past Medical History: Diabetes Mellitus, Hyperlipidemia, Hypertension, Liver Disease Additional Past Medical History / Comment(s): Fatty non alcholic liver disease - Acites, paracentesis every other . History of Any Multi-Drug Resistant Organisms: MRSA, VRE Date of last positivie culture/infection: 09/17/18 VRE 01/2010 MRSA MDRO Source:: VRE URINE/ MRSA ABDOMEN Past Surgical History: Section, Hysterectomy Additional Past Surgical History / Comment(s): Oophrarectomy, multiple large volume paracentesis Past Anesthesia/Blood Transfusion Reactions: No Reported Reaction Additional Past Anesthesia/Blood Transfusion Reaction / Comment(s): has had transfusions without problems Past Psychological History: Bipolar, Depression Smoking Status: Never smoker Past Alcohol Use History: None Reported Past Drug Use History: None Reported - Past Family History Father Family Medical History: COPD, Hyperlipidemia, Hypertension, Renal Disease Mother Family Medical History: Hyperlipidemia, Hypertension General Exam Limitations: no limitations General appearance: alert, in no apparent distress, lethargic Head exam: Present: atraumatic, normocephalic, normal inspection Eye exam: Present: normal appearance, PERRL, EOMI. Absent: scleral icterus, conjunctival injection, periorbital swelling ENT exam: Present: normal exam, mucous membranes moist Neck exam: Present: normal inspection. Absent: tenderness, meningismus, lymphadenopathy Respiratory exam: Present: normal lung sounds bilaterally. Absent: respiratory distress, wheezes, rales, rhonchi, stridor Cardiovascular Exam: Present: regular rate, normal rhythm, normal heart sounds. Absent: systolic murmur, diastolic murmur, rubs, gallop, clicks GI/Abdominal exam: Present: soft, normal bowel sounds. Absent: distended, t enderness, guarding, rebound, rigid Extremities exam: Present: normal inspection, full ROM, normal capillary refill. Absent: tenderness, pedal edema, joint swelling, calf tenderness Back exam: Present: normal inspection Neurological exam: Present: alert, oriented X3, CN II-XII intact Psychiatric exam: Present: normal affect, normal mood Skin exam: Present: warm, dry, intact, normal color. Absent: rash Course Vital Signs 03/23/20 03/23/20 15:30 16:40 Temperature 97.4 F L Pulse Rate 93 87 Respiratory 16 16 Rate Blood Pressure 101/42 98/46 O2 Sat by Pulse 97 93 L Oximetry - Reevaluation(s) Reevaluation #1: 03/23/20 17:15 Medical records reviewed Medical Decision Making - Medical Decision Making 49 female DF for evaluation. Patient has significantly abnormal lab values history of ascites, in acute renal failure with hyperkalemia. Patient treated for hyperkalemia and will be seen by nephrology for renal failure - Lab Data Result diagrams: 03/23/20 15:39 Lab Results 03/23/20 03/23/20 Range/Units 15:39 15:39 WBC 6.8 (3.8-10.6) k/uL RBC 2.86 L (3.80-5.40) m/uL Hgb 8.5 L (11.4-16.0) gm/dL Hct 26.0 L (34.0-46.0) % MCV 90.9 (80.0-100.0) fL MCH 29.9 (25.0-35.0) pg MCHC 32.9 (31.0-37.0) g/dL RDW 25.3 H (11.5-15.5) % Plt Count 87 L (150-450) k/uL MPV 11.4 Neutrophils % 88 % Lymphocytes % 4 % Monocytes % 6 % Eosinophils % 1 % Basophils % 0 % Neutrophils # 5.9 (1.3-7.7) k/uL Lymphocytes # 0.3 L (1.0-4.8) k/uL Monocytes # 0.4 (0-1.0) k/uL Eosinophils # 0.1 (0-0.7) k/uL Basophils # 0.0 (0-0.2) k/uL Hypochromasia Slight Anisocytosis Marked Microcytosis Slight Macrocytosis Slight PT 16.9 H (9.0-12.0) sec INR 1.7 H (<1.2) APTT 30.5 H (22.0-30.0) sec - EKG Data -: EKG Interpreted by Me (EKG shows nsr 90 WA 220 QRS 132 QTc 513) Disposition Clinical Impression: Hyperkalemia, ARF (acute renal failure), Weakness Disposition: ADMITTED IP TO THIS HOSP Condition: Fair Is patient prescribed a controlled substance at d/c from ED?: No Referrals: Woodrow Richards [Primary Care Provider] - 1-2 days
[2020-03-23 16:04] LABS: Anisocytosis Marked; Basophils % (A) 0 %; Eosinophils # (A) 0.1 k/uL (0-0.7); Eosinophils % (A) 1 %; HGB 8.5 gm/dL (11.4-16.0); Hypochromasia Slight; Lymphocytes # (A) 0.3 k/uL (1.0-4.8); Lymphocytes % (A) 4 %; MCH 29.9 pg (25.0-35.0); MCHC 32.9 g/dL (31.0-37.0); MCV 90.9 fL (80.0-100.0); Macrocytosis Slight; Mean Platelet Volume 11.4; Microcytosis Slight; Monocytes # (A) 0.4 k/uL (0-1.0); Monocytes % (A) 6 %; Neutrophils # (A) 5.9 k/uL (1.3-7.7); Neutrophils % (A) 88 %; Platelet Count 87 k/uL (150-450); RBC 2.86 m/uL (3.80-5.40); WBC 6.8 k/uL (3.8-10.6)
[2020-03-23 16:05] LABS: RDW 25.3 % (11.5-15.5)
[2020-03-23 16:23] LABS: INR 1.7 (<1.2); Partial Thromboplastin Time 30.5 sec (22.0-30.0); Prothrombin Time 16.9 sec (9.0-12.0)
[2020-03-23] MEDS ORDERED: SODIUM CHLORIDE 0.9% 1,000 ML IV ONE (17:48)
[2020-03-23 18:03] LABS: ALT 25 U/L (4-34); AST 65 U/L (14-36); Acetaminophen <10.0 ug/mL; African American GFR (CKD) 17 (>60 ml/min/1.73 sqM); Albumin 2.7 g/dL (3.5-5.0); Alkaline Phosphatase 194 U/L (38-126); Anion Gap 6 mmol/L; Blood Urea Nitrogen 70 mg/dL (7-17); Carbon Dioxide 23 mmol/L (22-30); Chloride 95 mmol/L (98-107); Glucose 113 mg/dL (74-99); Non-African American GFR(CKD) 15 (>60 ml/min/1.73 sqM); Phosphorus 4.5 mg/dL (2.5-4.5); Potassium 5.8 mmol/L (3.5-5.1); Salicylate <1.0 mg/dL; Sodium 124 mmol/L (137-145); Total Bilirubin 3.4 mg/dL (0.2-1.3); Total Protein 6.5 g/dL (6.3-8.2)
[2020-03-23] MEDS ORDERED: DEXTROSE 50% SYRINGE 50 ML IVP STA (19:11)
[2020-03-23] MEDS ORDERED: SODIUM BICARB 8.4% 50 ML SYR (1 MEQ/ML) IV STA (19:11)
[2020-03-23] MEDS ORDERED: INSULIN REGULAR 100 UNIT/ML VIAL IV ONE (19:11)
[2020-03-23] MEDS ORDERED: ONDANSETRON 4 MG TAB PO PRN (23:02)
[2020-03-23] MEDS ORDERED: bisacodyL 10 MG SUPP RECTAL PRN (23:02)
--- NOTE | 2020-03-23 23:13 | P.HPIM ---
History of Present Illness H&P Date: 03/23/20 Chief Complaint: abnormal labs 49 year old female with COLE and liver cirrhosis , DM patient comes in from [facility] , due to abnormal blood work showing hepatorenal syndrome and hyperkalemia , patient had blood work done due to scheduled paracentesis , she reports that 8L were removed today she otherwise , claims to be at her baseline status of health, she reports no changes in her breathing , denies any URI symptoms or urinary symptoms , her legs are swollen at baseline, she feels tired and weak but no changes in her overall status of health since discharge about couple weeks ago. in the ED she was found to have anemia at baseline, she also reports black tarry stool and history of hemorrhoids with occasional bleeding. denies abd pain fever or chills found to have worsening renal function and hyponatremia along with hyperkalemia Review of Systems Pertinent positives as noted in HPI. All other systems were reviewed and are n egative Past Medical History Past Medical History: Diabetes Mellitus, Hyperlipidemia, Hypertension, Liver Disease Additional Past Medical History / Comment(s): Fatty non alcholic liver disease - Acites, paracentesis every other . History of Any Multi-Drug Resistant Organisms: MRSA, VRE Date of last positivie culture/infection: 09/17/18 VRE 01/2010 MRSA MDRO Source:: VRE URINE/ MRSA ABDOMEN Past Surgical History: Section, Hysterectomy Additional Past Surgical History / Comment(s): Oophrarectomy, multiple large volume paracentesis Past Anesthesia/Blood Transfusion Reactions: No Reported Reaction Additional Past Anesthesia/Blood Transfusion Reaction / Comment(s): has had transfusions without problems Past Psychological History: Bipolar, Depression Smoking Status: Never smoker Past Alcohol Use History: None Reported Past Drug Use History: None Reported - Past Family History Father Family Medical History: COPD, Hyperlipidemia, Hypertension, Renal Disease Mother Family Medical History: Hyperlipidemia, Hypertension Medications and Allergies Home Medications Medication Instructions Recorded Confirmed Type Sertraline [Zoloft] 200 mg PO DAILY@0800 09/02/14 03/23/20 History ARIPiprazole [Abilify] 20 mg PO DAILY@0800 09/13/18 03/23/20 History lamoTRIgine [LaMICtal] 25 mg PO BID@0800,1700 08/23/19 03/23/20 History traZODone HCL 200 mg PO HS@2100 10/31/19 03/23/20 History Folic Acid 1 mg PO DAILY@1700 12/12/19 03/23/20 History INSULIN LISPRO (humaLOG) [humaLOG] See Protocol SQ TID@0700,1100,1630 12/12/19 03/23/20 History Lactulose 20 gm PO BID@0800,1700 12/12/19 03/23/20 History Furosemide [Lasix] 40 mg PO DAILY@0800 02/24/20 03/23/20 History Magnesium Hydroxide [Milk of 30 ml PO DIRECTED PRN 03/08/20 03/23/20 History Magnesia Concentrate] Na Phos,M-B/Na Phos,Di-Ba [Fleet 133 ml RECTAL DAILY PRN 03/08/20 03/23/20 History Adult] bisacodyL [Dulcolax] 10 mg RECTAL DAILY PRN 03/08/20 03/23/20 History traMADol HCL [Ultram] 100 mg PO Q6HR PRN 03/08/20 03/23/20 History traMADol HCl [Ultram] 50 mg PO Q6HR PRN 03/08/20 03/23/20 History Glucerna Shake 1 can PO TID@0800,1700,2100 03/23/20 03/23/20 History Magic Butt Paste 1 applic TOPICAL TID 03/23/20 03/23/20 History Magic Cup 1 each PO DAILY@1200 03/23/20 03/23/20 History Magnesium Oxide [Mag-Ox] 400 mg PO DAILY@1700 03/23/20 03/23/20 History Ondansetron HCl [Zofran] 4 mg PO Q8HR PRN 03/23/20 03/23/20 History Pantoprazole [Protonix] 40 mg PO BID@0800,1700 03/23/20 03/23/20 History Spironolactone [Aldactone] 50 mg PO BID@0800,1700 03/23/20 03/23/20 History Zolpidem [Ambien] 10 mg PO HS@2100 03/23/20 03/23/20 History Allergies Allergy/AdvReac Type Severity Reaction Status Date / Time Penicillins Allergy Rash/Hives Verified 03/23/20 19:35 Sulfa (Sulfonamide Allergy Rash/Hives Verified 03/23/20 19:35 Antibiotics) erythromycin base AdvReac Abdominal Verified 03/23/20 19:35 Pain meperidine HCl [From Demerol] AdvReac Confusion/N Verified 03/23/20 19:35 ausea Physical Exam Vitals: Vital Signs Temp Pulse Pulse Resp BP BP Pulse Ox 03/23/20 21:00 98.0 F 96 15 106/64 94 L 03/23/20 20:16 95 20 99/44 94 L 03/23/20 18:12 90 16 98/43 96 03/23/20 16:40 87 16 98/46 93 L 03/23/20 15:30 97.4 F L 93 16 101/42 97 Intake and Output 03/23/20 03/23/20 03/24/20 14:59 22:59 06:59 Other: Weight 108.862 kg Constitutional: No acute distress, conversant, pleasant Eyes: Anicteric sclerae, moist conjunctiva, Pupils equal round reactive to light ENMT: NC/AT Oropharynx clear, no erythema, no exudates Neck: Supple, FROM, no masses, or JVD No carotid bruits No thyromegaly Lungs: decrease breath sounds throughout , poor effort Clear to percussion Normal respiratory effort, no accessory muscle use Cardiovascular: Heart regular in rate and rhythm, systolic murmurs, no gallops, or rubs +3 bilateral peripheral edema Abdominal: Soft, slight discomfort to deep palpation at the epigastric region Nontender, no guarding, rebound or rigidity Abdomen moving with respiration Normoactive bowel sounds No hepatomegaly, No splenomegaly No palpable mass No abdominal wall hernia noted Skin: Normal temperature, tone, texture, turgor No induration No subcutaneous nodules No rash, lesions No ulcers Extremities: No digital cyanosis No clubbing Pedal pulses intact and symmetrical Radial pulses intact and symmetrical No calf tenderness Psychiatric: Alert and oriented to person, place and time flat affect fair judgement Neuro Muscles Strength 3/5 bilateral lower extremities, and 4/5 in bilateral upper extremities Sensation to light touch grossly present throughout Cranial nerves II-XII grossly intact No focal sensory deficits Lymphatics: no palpable cervical or supraclavicular , or inguinal lymph nodes Results CBC & Chem 7: 03/23/20 15:39 03/23/20 17:24 Labs: Abnormal Lab Results - Last 24 Hours (Table) 03/23/20 03/23/20 03/23/20 Range/Units 15:39 15:39 15:39 RBC 2.86 L (3.80-5.40) m/uL Hgb 8.5 L (11.4-16.0) gm/dL Hct 26.0 L (34.0-46.0) % RDW 25.3 H (11.5-15.5) % Plt Count 87 L (150-450) k/uL Lymphocytes # 0.3 L (1.0-4.8) k/uL PT 16.9 H (9.0-12.0) sec INR 1.7 H (<1.2) APTT 30.5 H (22.0-30.0) sec Sodium (137-145) mmol/L Potassium (3.5-5.1) mmol/L Chloride (98-107) mmol/L BUN (7-17) mg/dL Creatinine (0.52-1.04) mg/dL Glucose (74-99) mg/dL Calcium (8.4-10.2) mg/dL Total Bilirubin (0.2-1.3) mg/dL AST (14-36) U/L Alkaline Phosphatase (38-126) U/L Ammonia 63 H (<30) umol/L Albumin (3.5-5.0) g/dL 03/23/20 Range/Units 17:24 RBC (3.80-5.40) m/uL Hgb (11.4-16.0) gm/dL Hct (34.0-46.0) % RDW (11.5-15.5) % Plt Count (150-450) k/uL Lymphocytes # (1.0-4.8) k/uL PT (9.0-12.0) sec INR (<1.2) APTT (22.0-30.0) sec Sodium 124 L (137-145) mmol/L Potassium 5.8 H (3.5-5.1) mmol/L Chloride 95 L (98-107) mmol/L BUN 70 H (7-17) mg/dL Creatinine 3.51 H (0.52-1.04) mg/dL Glucose 113 H (74-99) mg/dL Calcium 8.0 L (8.4-10.2) mg/dL Total Bilirubin 3.4 H (0.2-1.3) mg/dL AST 65 H (14-36) U/L Alkaline Phosphatase 194 H (38-126) U/L Ammonia (<30) umol/L Albumin 2.7 L (3.5-5.0) g/dL Thrombosis Risk Factor Assmnt - Choose All That Apply Each Factor Represents 1 point: Age 41-60 years Thrombosis Risk Factor Assessment Total Risk Factor Score: 1 Thrombosis Risk Factor Assessment Level: Low Risk Assessment and Plan Assessment: acute hepatorenal syndrome hyperkalemia hyponatremia plan s/p paracentesis 8 L hold lasix and aldacotone gentle IVF hydration nephrology consult monitor renal function follow up renal function chronic anemia with chris GI consult PPI monitor Hgb recent blood transfusion , EGD showed duodenitis (03/01) chronic conditions hypertension , controlled DM , insulin sliding scale Preformed a thorough record review from recent hospitalization discharged couple weeks ago where she was admitted for UTI, and acute on chronic anemia , requiring 2 units PRBC, EGD showed duodenitis CODE STATUS:no code DVT prophylaxis: heparin sc tid Discussed with: Patient, ER, RN Anticipated length of stay > than [address]: [facility] A total of 75 minutes was spent on the care of this complex patient more than 50% of the time was spent in counseling and care coordination.
[2020-03-24 00:21] LABS: Appearance,Urine Clear (Clear); Bacteria,Urine Rare /hpf; Bilirubin,Urine Negative (Negative); Blood,Urine Negative (Negative); Color,Urine Yellow; Glucose,Urine (UA) Negative (Negative); Hyaline Casts,Urine 10 /lpf (0-2); Ketones,Urine Negative (Negative); Leukocyte Esterase,Urine Trace (Negative); Mucus,Urine Rare /hpf; Nitrite,Urine Negative (Negative); Protein,Urine Trace (Negative); RBC,Urine 1 /hpf (0-5); Specific Gravity,Urine 1.015 (1.001-1.035); Squamous Epithelial Cell,Urine 1 /hpf (0-4); Urobilinogen,Urine <2.0 mg/dL (<2.0); WBC,Urine 2 /hpf (0-5)
[2020-03-24 00:34] LABS: Glucose,Whole Blood 93 mg/dL (75-99)
[2020-03-24] MEDS ORDERED: NON FORMULARY DRUG (Glucerna Shake 1 CAN Liquid) PO SCH (08:00)
[2020-03-24] MEDS ORDERED: FUROSEMIDE 40 MG TAB PO SCH (08:00)
[2020-03-24] MEDS ORDERED: SPIRONOLACTONE 25 MG TAB PO SCH (08:00)
[2020-03-24] MEDS: INSULIN ASPART (NovoLOG) 100 UNIT/ML VIAL SQ SCH ×4 (08:06→19:53)
[2020-03-24] MEDS: LACTULOSE 20 GM/30 ML CUP PO SCH ×2 (08:31→16:32)
[2020-03-24] MEDS: lamoTRIgine 25 MG TAB PO SCH ×2 (08:31→16:32)
[2020-03-24] MEDS: PANTOPRAZOLE 40 MG TABLET PO SCH ×2 (08:31→16:32)
[2020-03-24] MEDS: SERTRALINE 100 MG TAB PO SCH (08:31)
[2020-03-24] MEDS ORDERED: NON FORMULARY DRUG (Magic Butt Paste 1 APPLIC) TOPICAL SCH (09:00)
[2020-03-24] MEDS: ENOXAPARIN 30 MG/0.3 ML SYRINGE SQ SCH (09:01)
[2020-03-24 09:31] LABS: Anisocytosis Marked; Basophils % (A) 0 %; Eosinophils % (A) 1 %; HCT 25.2 % (34.0-46.0); HGB 8.1 gm/dL (11.4-16.0); Lymphocytes # (A) 0.5 k/uL (1.0-4.8); Lymphocytes % (A) 8 %; MCH 29.3 pg (25.0-35.0); MCHC 32.3 g/dL (31.0-37.0); Macrocytosis Slight; Mean Platelet Volume 7.1; Microcytosis Slight; Monocytes # (A) 0.4 k/uL (0-1.0); Monocytes % (A) 6 %; Neutrophils % (A) 84 %; RBC 2.78 m/uL (3.80-5.40)
[2020-03-24 09:50] LABS: Platelet Count 54 k/uL (150-450); RDW 25.1 % (11.5-15.5)
[2020-03-24] MEDS: ONDANSETRON 4 MG/2 ML VIAL IVP PRN (11:24)
[2020-03-24 11:25] VITALS: BMI 41.1
[2020-03-24] MEDS: OCTREOTIDE 100 MCG/ML INJ SQ SCH ×3 (11:25→23:37)
[2020-03-24 12:03] LABS: Glucose,Whole Blood 68 mg/dL (75-99)
[2020-03-24 12:25] LABS: Glucose,Whole Blood 71 mg/dL (75-99)
[2020-03-24] MEDS ORDERED: MIDODRINE 5 MG TAB PO SCH (12:30)
[2020-03-24 13:41] LABS: African American GFR (CKD) 17.7 (60.0-200.0); Albumin 2.6 g/dL (3.80-4.90); Albumin/Globulin Ratio 0.84 (1.60-3.17); Anion Gap 7.2 mmol/L (4.00-12.00); BUN/Creat Ratio 21.18 Ratio (12.00-20.00); Carbon Dioxide 23.8 mmol/L (21.6-31.8); Globulin 3.1 g/dL (1.6-3.3); Non-African American GFR(CKD) 15.3 (60.0-200.0); Potassium 5.2 mmol/L (3.5-5.5); Total Bilirubin 3.6 mg/dL (0.3-1.2); Total Protein 5.7 g/dL (6.2-8.2)
[2020-03-24] MEDS: HYDROmorphone 0.5 MG/0.5 ML SYRINGE IVP PRN (14:38)
--- NOTE | 2020-03-24 16:25 | P.NPCON ---
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 She had scheduled paracentesis and 8 L of fluid was removed. She had blood work and had abnormal labs and was sent to the hospital. Denies any nausea vomiting diarrhea. Denies any abdominal discomfort. Her baseline creatinine is 1.1-1.2 MG per DL. Her baseline serum sodium is 127-132 mEq per liter. While in the hospital she was started on midodrine and octreotide. Urinary sodium less than 10. She also takes Lasix and Aldactone at home. The same was 5.8 on admission improved with medical management. Review of Systems Constitutional: Reports as per HPI Past Medical History Past Medical History: Diabetes Mellitus, Hyperlipidemia, Hypertension, Liver Disease Additional Past Medical History / Comment(s): Fatty non alcholic liver disease - Acites, paracentesis every other . History of Any Multi-Drug Resistant Organisms: MRSA, VRE Date of last positivie culture/infection: 09/17/18 VRE 01/2010 MRSA MDRO Source:: VRE URINE/ MRSA ABDOMEN Past Surgical History: Section, Hysterectomy Additional Past Surgical History / Comment(s): Oophrarectomy, multiple large volume paracentesis Past Anesthesia/Blood Transfusion Reactions: No Reported Reaction Additional Past Anesthesia/Blood Transfusion Reaction / Comment(s): has had transfusions without problems Past Psychological History: Bipolar, Depression Smoking Status: Never smoker Past Alcohol Use History: None Reported Past Drug Use History: None Reported - Past Family History Father Family Medical History: COPD, Hyperlipidemia, Hypertension, Renal Disease Mother Family Medical History: Hyperlipidemia, Hypertension Medications and Allergies Home Medications Medication Instructions Recorded Confirmed Type Sertraline [Zoloft] 200 mg PO DAILY@0800 09/02/14 03/23/20 History ARIPiprazole [Abilify] 20 mg PO DAILY@0800 09/13/18 03/23/20 History lamoTRIgine [LaMICtal] 25 mg PO BID@0800,1700 08/23/19 03/23/20 History traZODone HCL 200 mg PO HS@2100 10/31/19 03/23/20 History Folic Acid 1 mg PO DAILY@1700 12/12/19 03/23/20 History INSULIN LISPRO (humaLOG) [humaLOG] See Protocol SQ TID@0700,1100,1630 12/12/19 03/23/20 History Lactulose 20 gm PO BID@0800,1700 12/12/19 03/23/20 History Furosemide [Lasix] 40 mg PO DAILY@0800 02/24/20 03/23/20 History Magnesium Hydroxide [Milk of 30 ml PO DIRECTED PRN 03/08/20 03/23/20 History Magnesia Concentrate] Na Phos,M-B/Na Phos,Di-Ba [Fleet 133 ml RECTAL DAILY PRN 03/08/20 03/23/20 History Adult] bisacodyL [Dulcolax] 10 mg RECTAL DAILY PRN 03/08/20 03/23/20 History traMADol HCL [Ultram] 100 mg PO Q6HR PRN 03/08/20 03/23/20 History traMADol HCl [Ultram] 50 mg PO Q6HR PRN 03/08/20 03/23/20 History Glucerna Shake 1 can PO TID@0800,1700,2100 03/23/20 03/23/20 History Magic Butt Paste 1 applic TOPICAL TID 03/23/20 03/23/20 History Magic Cup 1 each PO DAILY@1200 03/23/20 03/23/20 History Magnesium Oxide [Mag-Ox] 400 mg PO DAILY@1700 03/23/20 03/23/20 History Ondansetron HCl [Zofran] 4 mg PO Q8HR PRN 03/23/20 03/23/20 History Pantoprazole [Protonix] 40 mg PO BID@0800,1700 03/23/20 03/23/20 History Spironolactone [Aldactone] 50 mg PO BID@0800,1700 03/23/20 03/23/20 History Zolpidem [Ambien] 10 mg PO HS@2100 03/23/20 03/23/20 History Allergies Allergy/AdvReac Type Severity Reaction Status Date / Time Penicillins Allergy Rash/Hives Verified 03/23/20 19:35 Sulfa (Sulfonamide Allergy Rash/Hives Verified 03/23/20 19:35 Antibiotics) erythromycin base AdvReac Abdominal Verified 03/23/20 19:35 Pain meperidine HCl [From Demerol] AdvReac Confusion/N Verified 03/23/20 19:35 ausea Physical Exam Vitals: Vital Signs Temp Pulse Pulse Resp BP BP Pulse Ox 03/24/20 14:00 98.3 F 100 16 92/53 96 03/24/20 04:20 97.8 F 82 16 80/44 94 L 03/23/20 21:00 98.0 F 96 16 106/64 94 L 03/23/20 20:16 95 20 99/44 94 L 03/23/20 18:12 90 16 98/43 96 03/23/20 16:40 87 16 98/46 93 L Intake and Output 03/24/20 03/24/20 03/24/20 06:59 14:59 22:59 Output Total 900 400 Balance -900 -400 Output: Urine 900 400 Other: Voiding Method Incontinent Indwelling Catheter # Voids 1 1 # Bowel Movements 0 0 Weight 108.862 kg No acute distress S1-S2 heard Decreased breath sounds Abdomen distended Trace edema Results - Lab Results Most recent lab results Calcium 8.0 mg/dL (8.7-10.3) L 03/24/20 07:50 Phosphorus 4.5 mg/dL (2.5-4.5) 03/23/20 17:24 03/24/20 07:50 03/24/20 07:50 Assessment and Plan Assessment: #1 acute kidney injury suspect hepatorenal syndrome -Large volume paracentesis without albumin. 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 #2 currently on midodrine and octreotide, give albumin 100 g daily for 2 days. #3 increase midodrine to 10 mg 3 times a day. #4 monitor strict ins and outs. #5 avoid nephrotoxic agents and hypotensive episodes.
[2020-03-24] MEDS: MIDODRINE 5 MG TAB PO SCH (16:31)
[2020-03-24] MEDS: FOLIC ACID 1 MG TAB PO SCH (16:32)
[2020-03-24 16:52] LABS: Glucose,Whole Blood 119 mg/dL (75-99)
--- NOTE | 2020-03-24 17:23 | P.PN ---
Subjective Progress Note Date: 03/24/20 (delayed charting seen at 0915) Principal diagnosis: renal failure Patient is a 49-year-old female with a history of nonalcoholic steatohepatitis resulting in liver cirrhosis requiring frequent outpatient paracentesis, diabetes mellitus type 2, hypertension, and dyslipidemia who presented to the ER from [facility] due to hyperkalemia and acute renal failure. She underwent outpati ent paracentesis on 03/23 with the removal of 8.5 L of fluid. On arrival to the ER her vital signs were found to be within normal limits. Initial laboratory analysis shows hemoglobin 8.5, platelets 87, sodium 124, potassium 5.8, BUN 70, creatinine 3.51, INR 1.7, AST 65, alkaline phosphatase 194, ammonia 63. Arrangements are made for admission for hepatorenal syndrome. Her diuretics were stopped. Patient seen and examined at bedside. She denies any chest pain, shortness of breath. She is nauseated and vomiting. She denies any diarrhea. She states her legs are more swollen than normal. She will count that they gave her albumin during her paracentesis yesterday. General: Chronically ill-appearing, moderate distress secondary to nausea, appears at stated age, temporal and buccal wasting Derm: warm, dry Head: atraumatic, normocephalic, symmetric Eyes: EOMI, no lid lag, anicteric sclera Mouth: no lip lesion, mucus membranes moist Cardiovascular: S1S2 reg, no murmur, positive posterior tibial pulse bilateral, Lungs: Decreased breath sounds bilateral, no rhonchi, no rales , no accessory muscle use Abdominal: soft, nontender to palpation, no guarding, no appreciable organomegaly Ext: no gross muscle atrophy, 4+ edema bilateral lower extremities, no contractures Neuro: CN II-XI grossly intact, no focal neuro deficits Psych: Alert, oriented, appropriate affect Acute kidney injury, hyperkalemia, hyponatremia with CKD -Suspect hepatorenal syndrome -Hold diuretics -Nephrology consult -Start Midrin and octreotide, consider albumin if nephrology in agreement -Avoid additional nephrotoxic agents -Follow BMP closely End-stage cirrhosis requiring recurrent paracentesis -Case discussed with Dr. Read. Patient has been unable to make appointment for liver transplant at [facility]. He feels as though palliative or hospice care may be appropriate at this point in time. -Continue to monitor -Advance care planning discussion once patient is no longer actively vomiting. Diabetes mellitus type 2, insulin controlled -Sliding-scale insulin -Follow blood sugars -Hemoglobin A1c 4.7 on 03/07/20 Bipolar disorder -Continue current medications DVT prophylaxis: SCDs Discussed with: Patient, nursing, Dr. Read Anticipated discharge: 4-[address]: Return [facility] A total of 35 minutes was spent on the care of this complex patient more than 50% of the time was spent in counseling and care coordination. Objective - Vital Signs Vital signs: Vital Signs Temp 98.3 F 03/24/20 14:00 Pulse 100 03/24/20 14:00 Resp 16 03/24/20 14:00 BP 92/53 03/24/20 14:00 Pulse Ox 96 03/24/20 14:00 Intake & Output 03/23/20 03/24/20 03/24/20 18:59 06:59 18:59 Output Total 900 400 Balance -900 -400 Weight 108.862 kg 108.862 kg 108.862 kg Output: Urine 900 400 Other: Voiding Method Incontinent Incontinent Indwelling Catheter # Voids 1 1 # Bowel Movements 0 0 - Labs CBC & Chem 7: 03/24/20 07:50 03/24/20 07:50 Labs: Abnormal Lab Results - Last 24 Hours (Table) 03/23/20 03/23/20 03/23/20 Range/Units 15:39 17:24 23:40 RBC (3.80-5.40) m/uL Hgb (11.4-16.0) gm/dL Hct (34.0-46.0) % RDW (11.5-15.5) % Plt Count (150-450) k/uL Lymphocytes # (1.0-4.8) k/uL Sodium 124 L (137-145) mmol/L Potassium 5.8 H (3.5-5.1) mmol/L Chloride 95 L (98-107) mmol/L BUN 70 H (7-17) mg/dL Creatinine 3.51 H (0.52-1.04) mg/dL Est GFR (CKD-EPI)AfAm (60.0-200.0) Est GFR (CKD-EPI)NonAf (60.0-200.0) BUN/Creatinine Ratio (12.00-20.00) Ratio Glucose 113 H (74-99) mg/dL POC Glucose (mg/dL) (75-99) mg/dL Calcium 8.0 L (8.4-10.2) mg/dL Total Bilirubin 3.4 H (0.2-1.3) mg/dL AST 65 H (14-36) U/L Alkaline Phosphatase 194 H (38-126) U/L Ammonia 63 H (<30) umol/L Total Protein (6.2-8.2) g/dL Albumin 2.7 L (3.5-5.0) g/dL Albumin/Globulin Ratio (1.60-3.17) g/dL Urine Protein Trace H (Negative) Ur Leukocyte Esterase Trace H (Negative) Urine Bacteria Rare H (None) /hpf Hyaline Casts 10 H (0-2) /lpf Urine Mucus Rare H (None) /hpf 03/24/20 03/24/20 03/24/20 Range/Units 07:50 07:50 12:01 RBC 2.78 L (3.80-5.40) m/uL Hgb 8.1 L (11.4-16.0) gm/dL Hct 25.2 L (34.0-46.0) % RDW 25.1 H (11.5-15.5) % Plt Count 54 L (150-450) k/uL Lymphocytes # 0.5 L (1.0-4.8) k/uL Sodium 127 L (137-145) mmol/L Potassium (3.5-5.1) mmol/L Chloride (98-107) mmol/L BUN 72.0 H (7-17) mg/dL Creatinine 3.4 H (0.52-1.04) mg/dL Est GFR (CKD-EPI)AfAm 17.7 L (60.0-200.0) Est GFR (CKD-EPI)NonAf 15.3 L (60.0-200.0) BUN/Creatinine Ratio 21.18 H (12.00-20.00) Ratio Glucose 69 L (74-99) mg/dL POC Glucose (mg/dL) 68 L (75-99) mg/dL Calcium 8.0 L (8.4-10.2) mg/dL Total Bilirubin 3.6 H (0.2-1.3) mg/dL AST 71 H (14-36) U/L Alkaline Phosphatase 202 H (38-126) U/L Ammonia (<30) umol/L Total Protein 5.7 L (6.2-8.2) g/dL Albumin 2.60 L (3.5-5.0) g/dL Albumin/Globulin Ratio 0.84 L (1.60-3.17) g/dL Urine Protein (Negative) Ur Leukocyte Esterase (Negative) Urine Bacteria (None) /hpf Hyaline Casts (0-2) /lpf Urine Mucus (None) /hpf 03/24/20 03/24/20 Range/Units 12:24 16:50 RBC (3.80-5.40) m/uL Hgb (11.4-16.0) gm/dL Hct (34.0-46.0) % RDW (11.5-15.5) % Plt Count (150-450) k/uL Lymphocytes # (1.0-4.8) k/uL Sodium (137-145) mmol/L Potassium (3.5-5.1) mmol/L Chloride (98-107) mmol/L BUN (7-17) mg/dL Creatinine (0.52-1.04) mg/dL Est GFR (CKD-EPI)AfAm (60.0-200.0) Est GFR (CKD-EPI)NonAf (60.0-200.0) BUN/Creatinine Ratio (12.00-20.00) Ratio Glucose (74-99) mg/dL POC Glucose (mg/dL) 71 L 119 H (75-99) mg/dL Calcium (8.4-10.2) mg/dL Total Bilirubin (0.2-1.3) mg/dL AST (14-36) U/L Alkaline Phosphatase (38-126) U/L Ammonia (<30) umol/L Total Protein (6.2-8.2) g/dL Albumin (3.5-5.0) g/dL Albumin/Globulin Ratio (1.60-3.17) g/dL Urine Protein (Negative) Ur Leukocyte Esterase (Negative) Urine Bacteria (None) /hpf Hyaline Casts (0-2) /lpf Urine Mucus (None) /hpf
[2020-03-24] MEDS: ALBUMIN HUMAN 25% 50 ML in EMPTY BAG 1 BAG IVPB SCH ×3 (17:27→22:02)
[2020-03-24 19:50] LABS: Glucose,Whole Blood 174 mg/dL (75-99)
[2020-03-24] MEDS: traZODone HCL 100 MG TAB PO SCH (19:51)
[2020-03-24] MEDS ORDERED: SODIUM CHLORIDE 0.9% 500 ML 500 ML IV ONE (23:06)
[2020-03-25] MEDS: ALBUMIN HUMAN 25% 50 ML in EMPTY BAG 1 BAG IVPB SCH ×10 (00:16→23:29)
[2020-03-25 06:58] LABS: Anisocytosis Marked; HCT 21.3 % (34.0-46.0); Hypochromasia Slight; MCH 30.4 pg (25.0-35.0); MCHC 32.6 g/dL (31.0-37.0); MCV 93.3 fL (80.0-100.0); Macrocytosis Slight; Mean Platelet Volume 7.7; Microcytosis Slight; RBC 2.29 m/uL (3.80-5.40); RDW 24.9 % (11.5-15.5); WBC 4.5 k/uL (3.8-10.6)
[2020-03-25 07:22] LABS: Platelet Count 47 k/uL (150-450)
[2020-03-25] MEDS: OCTREOTIDE 100 MCG/ML INJ SQ SCH ×3 (07:49→23:29)
[2020-03-25] MEDS: PANTOPRAZOLE 40 MG TABLET PO SCH ×2 (07:50→15:13)
[2020-03-25] MEDS: ENOXAPARIN 30 MG/0.3 ML SYRINGE SQ SCH (07:50)
[2020-03-25] MEDS: lamoTRIgine 25 MG TAB PO SCH ×2 (07:51→15:18)
[2020-03-25] MEDS: MIDODRINE 5 MG TAB PO SCH ×3 (07:51→17:14)
[2020-03-25] MEDS: SERTRALINE 100 MG TAB PO SCH (07:51)
[2020-03-25] MEDS: LACTULOSE 20 GM/30 ML CUP PO SCH ×2 (07:52→15:14)
[2020-03-25 07:58] LABS: Glucose,Whole Blood 185 mg/dL (75-99)
[2020-03-25] MEDS: INSULIN ASPART (NovoLOG) 100 UNIT/ML VIAL SQ SCH ×4 (08:07→22:24)
[2020-03-25 10:03] LABS: INR 1.66 (0.90-1.11); Prothrombin Time 17.3 sec (9.9-11.9)
[2020-03-25 10:12] LABS: African American GFR (CKD) 16.5 (60.0-200.0); Albumin 3.3 g/dL (3.80-4.90); Albumin/Globulin Ratio 1.32 (1.60-3.17); Anion Gap 8.2 mmol/L (4.00-12.00); BUN/Creat Ratio 20.28 Ratio (12.00-20.00); Calcium 8.4 mg/dL (8.7-10.3); Carbon Dioxide 23.8 mmol/L (21.6-31.8); Globulin 2.5 g/dL (1.6-3.3); Non-African American GFR(CKD) 14.2 (60.0-200.0); Potassium 5.7 mmol/L (3.5-5.5); Total Bilirubin 3.1 mg/dL (0.2-1.2); Total Protein 5.8 g/dL (6.2-8.2)
--- NOTE | 2020-03-25 11:28 | P.CONS ---
History of Present Illness - Reason for Consult Consult date: 03/24/20 Decompensated cirrhosis Requesting physician: Roxann Ayoub - Chief Complaint Elevated creatinine, electrolytes dyscrasia - History of Present Illness 49-year-old female with multiple medical comorbidities including hypertension, hyperlipidemia, diabetes mellitus, Becker cirrhosis who presented due to electrolyte dyscrasias with hyperkalemia and acute renal failure noted. The patient underwent outpatient paracentesis on 03/23/2020 with removal of 8.5 L of fluid. She was sent in for further evaluation due to laboratory findings at that time. The patient has a known history of decompensated Becker cirrhosis for which she is followed up in the past. She has had issues with fluid overload and encephalopathy and has previously been maintained on diuretic therapy with Aldactone and Lasix as well as lactulose for encephalopathy. She has had issues with compliance due to immobility and not liking the effects of the medication, such as frequent bowel movements. Recently she underwent EGD during hospitalization which showed moderate duodenitis treated with gold probe ablation and mild portal hypertensive gastropathy with no varices. Currently she is being treated for hepatorenal syndrome. She had previously been referred to [facility] but was unable to follow-up with their team. Review of Systems REVIEW OF SYSTEMS: CONSTITUTIONAL: Denies any fevers, chills, weight change but she does report fatigue. CARDIOVASCULAR: Denies any chest pain, palpitations high or low blood pressures RESPIRATORY: Denies any shortness of breath, hemoptysis or cough. GENITOURINARY: No dysuria or hematuria. MUSCULOSKELETAL: No weakness reported. SKIN: Denies any new rashes or lesions, jaundice or pallor. PSYCHIATRIC: Denies any depression or anxiety, but she does have a history of mental health issues. NEUROLOGY: Denies headache, denies any new focal deficits. EARS/NOSE/THROAT: No recent hearing change, congestion, nasal discharge or sore throat. EYES: No pain in eyes, discharge or change in vision. GASTROINTESTINAL: As per HPI. Past Medical History Past Medical History: Diabetes Mellitus, Hyperlipidemia, Hypertension, Liver Disease Additional Past Medical History / Comment(s): Fatty non alcholic liver disease - Acites, paracentesis every other . 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 MDRO Source:: VRE URINE/ MRSA ABDOMEN Past Surgical History: Section, Hysterectomy Additional Past Surgical History / Comment(s): Oophrarectomy, multiple large volume paracentesis Past Anesthesia/Blood Transfusion Reactions: No Reported Reaction Additional Past Anesthesia/Blood Transfusion Reaction / Comm: has had transfusions without problems Past Psychological History: Bipolar, Depression Smoking Status: Never smoker Past Alcohol Use History: None Reported Past Drug Use History: None Reported - Past Family History Father Family Medical History: COPD, Hyperlipidemia, Hypertension, Renal Disease Mother Family Medical History: Hyperlipidemia, Hypertension Medications and Allergies Home Medications Medication Instructions Recorded Confirmed Type Sertraline [Zoloft] 200 mg PO DAILY@0800 09/02/14 03/23/20 History ARIPiprazole [Abilify] 20 mg PO DAILY@0800 09/13/18 03/23/20 History lamoTRIgine [LaMICtal] 25 mg PO BID@0800,1700 08/23/19 03/23/20 History traZODone HCL 200 mg PO HS@2100 10/31/19 03/23/20 History Folic Acid 1 mg PO DAILY@1700 12/12/19 03/23/20 History INSULIN LISPRO (humaLOG) [humaLOG] See Protocol SQ TID@0700,1100,1630 12/12/19 03/23/20 History Lactulose 20 gm PO BID@0800,1700 12/12/19 03/23/20 History Furosemide [Lasix] 40 mg PO DAILY@0800 02/24/20 03/23/20 History Magnesium Hydroxide [Milk of 30 ml PO DIRECTED PRN 03/08/20 03/23/20 History Magnesia Concentrate] Na Phos,M-B/Na Phos,Di-Ba [Fleet 133 ml RECTAL DAILY PRN 03/08/20 03/23/20 History Adult] bisacodyL [Dulcolax] 10 mg RECTAL DAILY PRN 03/08/20 03/23/20 History traMADol HCL [Ultram] 100 mg PO Q6HR PRN 03/08/20 03/23/20 History traMADol HCl [Ultram] 50 mg PO Q6HR PRN 03/08/20 03/23/20 History Glucerna Shake 1 can PO TID@0800,1700,2100 03/23/20 03/23/20 History Magic Butt Paste 1 applic TOPICAL TID 03/23/20 03/23/20 History Magic Cup 1 each PO DAILY@1200 03/23/20 03/23/20 History Magnesium Oxide [Mag-Ox] 400 mg PO DAILY@1700 03/23/20 03/23/20 History Ondansetron HCl [Zofran] 4 mg PO Q8HR PRN 03/23/20 03/23/20 History Pantoprazole [Protonix] 40 mg PO BID@0800,1700 03/23/20 03/23/20 History Spironolactone [Aldactone] 50 mg PO BID@0800,1700 03/23/20 03/23/20 History Zolpidem [Ambien] 10 mg PO HS@2100 03/23/20 03/23/20 History Allergies Allergy/AdvReac Type Severity Reaction Status Date / Time Penicillins Allergy Rash/Hives Verified 03/23/20 19:35 Sulfa (Sulfonamide Allergy Rash/Hives Verified 03/23/20 19:35 Antibiotics) erythromycin base AdvReac Abdominal Verified 03/23/20 19:35 Pain meperidine HCl [From Demerol] AdvReac Confusion/N Verified 03/23/20 19:35 ausea Physical Exam Vitals: Vital Signs Temp Pulse Pulse Resp BP BP Pulse Ox 03/24/20 04:20 97.8 F 82 16 80/44 94 L 03/23/20 21:00 98.0 F 96 16 106/64 94 L 03/23/20 20:16 95 20 99/44 94 L 03/23/20 18:12 90 16 98/43 96 03/23/20 16:40 87 16 98/46 93 L 03/23/20 15:30 97.4 F L 93 16 101/42 97 Intake and Output 03/23/20 03/24/20 03/24/20 22:59 06:59 14:59 Output Total 900 400 Balance -900 -400 Output: Urine 900 400 Other: Voiding Method Incontinent Incontinent Indwelling Catheter # Voids 1 1 # Bowel Movements 0 0 Weight 108.862 kg 108.862 kg On physical examination, patient appears comfortable in no apparent distress. HEAD: Normocephalic, atraumatic. EYES: Scleral icterus. No conjunctival injection. MOUTH: No lesions, tongue midline. NECK: Trachea midline, no gross abnormalities. CHEST: Clear to auscultation with no wheezing or rhonchi appreciated. HEART: Regular rate and rhythm. ABDOMEN: Soft, obese and mildly distended. Bowel sounds are positive. No organomegaly. No guarding or rigidity. EXTREMITIES: Bilateral pedal edema. SKIN: No rashes, mild jaundice. NEUROLOGIC: Alert and oriented x3, with no asterixis. No focal deficits. Results CBC & Chem 7: 03/25/20 05:51 03/25/20 05:51 Labs: Abnormal Lab Results - Last 24 Hours (Table) 03/23/20 03/23/20 03/23/20 Range/Units 15:39 15:39 15:39 RBC 2.86 L (3.80-5.40) m/uL Hgb 8.5 L (11.4-16.0) gm/dL Hct 26.0 L (34.0-46.0) % RDW 25.3 H (11.5-15.5) % Plt Count 87 L (150-450) k/uL Lymphocytes # 0.3 L (1.0-4.8) k/uL PT 16.9 H (9.0-12.0) sec INR 1.7 H (<1.2) APTT 30.5 H (22.0-30.0) sec Sodium (137-145) mmol/L Potassium (3.5-5.1) mmol/L Chloride (98-107) mmol/L BUN (7-17) mg/dL Creatinine (0.52-1.04) mg/dL Est GFR (CKD-EPI)AfAm (60.0-200.0) Est GFR (CKD-EPI)NonAf (60.0-200.0) BUN/Creatinine Ratio (12.00-20.00) Ratio Glucose (74-99) mg/dL POC Glucose (mg/dL) (75-99) mg/dL Calcium (8.4-10.2) mg/dL Total Bilirubin (0.2-1.3) mg/dL AST (14-36) U/L Alkaline Phosphatase (38-126) U/L Ammonia 63 H (<30) umol/L Total Protein (6.2-8.2) g/dL Albumin (3.5-5.0) g/dL Albumin/Globulin Ratio (1.60-3.17) g/dL Urine Protein (Negative) Ur Leukocyte Esterase (Negative) Urine Bacteria (None) /hpf Hyaline Casts (0-2) /lpf Urine Mucus (None) /hpf 03/23/20 03/23/20 03/24/20 Range/Units 17:24 23:40 07:50 RBC (3.80-5.40) m/uL Hgb (11.4-16.0) gm/dL Hct (34.0-46.0) % RDW (11.5-15.5) % Plt Count (150-450) k/uL Lymphocytes # (1.0-4.8) k/uL PT (9.0-12.0) sec INR (<1.2) APTT (22.0-30.0) sec Sodium 124 L 127 L (137-145) mmol/L Potassium 5.8 H (3.5-5.1) mmol/L Chloride 95 L (98-107) mmol/L BUN 70 H 72.0 H (7-17) mg/dL Creatinine 3.51 H 3.4 H (0.52-1.04) mg/dL Est GFR (CKD-EPI)AfAm 17.7 L (60.0-200.0) Est GFR (CKD-EPI)NonAf 15.3 L (60.0-200.0) BUN/Creatinine Ratio 21.18 H (12.00-20.00) Ratio Glucose 113 H 69 L (74-99) mg/dL POC Glucose (mg/dL) (75-99) mg/dL Calcium 8.0 L 8.0 L (8.4-10.2) mg/dL Total Bilirubin 3.4 H 3.6 H (0.2-1.3) mg/dL AST 65 H 71 H (14-36) U/L Alkaline Phosphatase 194 H 202 H (38-126) U/L Ammonia (<30) umol/L Total Protein 5.7 L (6.2-8.2) g/dL Albumin 2.7 L 2.60 L (3.5-5.0) g/dL Albumin/Globulin Ratio 0.84 L (1.60-3.17) g/dL Urine Protein Trace H (Negative) Ur Leukocyte Esterase Trace H (Negative) Urine Bacteria Rare H (None) /hpf Hyaline Casts 10 H (0-2) /lpf Urine Mucus Rare H (None) /hpf 03/24/20 03/24/20 03/24/20 Range/Units 07:50 12:01 12:24 RBC 2.78 L (3.80-5.40) m/uL Hgb 8.1 L (11.4-16.0) gm/dL Hct 25.2 L (34.0-46.0) % RDW 25.1 H (11.5-15.5) % Plt Count 54 L (150-450) k/uL Lymphocytes # 0.5 L (1.0-4.8) k/uL PT (9.0-12.0) sec INR (<1.2) APTT (22.0-30.0) sec Sodium (137-145) mmol/L Potassium (3.5-5.1) mmol/L Chloride (98-107) mmol/L BUN (7-17) mg/dL Creatinine (0.52-1.04) mg/dL Est GFR (CKD-EPI)AfAm (60.0-200.0) Est GFR (CKD-EPI)NonAf (60.0-200.0) BUN/Creatinine Ratio (12.00-20.00) Ratio Glucose (74-99) mg/dL POC Glucose (mg/dL) 68 L 71 L (75-99) mg/dL Calcium (8.4-10.2) mg/dL Total Bilirubin (0.2-1.3) mg/dL AST (14-36) U/L Alkaline Phosphatase (38-126) U/L Ammonia (<30) umol/L Total Protein (6.2-8.2) g/dL Albumin (3.5-5.0) g/dL Albumin/Globulin Ratio (1.60-3.17) g/dL Urine Protein (Negative) Ur Leukocyte Esterase (Negative) Urine Bacteria (None) /hpf Hyaline Casts (0-2) /lpf Urine Mucus (None) /hpf Assessment and Plan (1) Cirrhosis Narrative/Plan: 49-year-old female with multiple complex medical problems including decompensated Becker cirrhosis requiring frequent large volume paracentesis and encephalopathy who presented due to laboratory abnormalities. Patient found to have elevation in creatinine and electrolyte abnormalities on presentation. Currently she is been seen by the nephrology service. She has a known history of decompensated cirrhosis and has been treated with diuretic therapy and high volume paracentesis in the past as well as lactulose for encephalopathy. She was previously referred to [facility] but as failed to follow up due to social issues. Current Visit: No Status: Acute Code(s): K74.60 - UNSPECIFIED CIRRHOSIS OF LIVER SNOMED Code(s): 34692063 (2) Hyperkalemia Current Visit: Yes Status: Acute Code(s): E87.5 - HYPERKALEMIA SNOMED Code(s): 23221387 (3) Abdominal distention Current Visit: No Status: Acute Code(s): R14.0 - ABDOMINAL DISTENSION (GASEOUS) SNOMED Code(s): 96891586 (4) Ascites Current Visit: No Status: Acute Code(s): R18.8 - OTHER ASCITES SNOMED Code(s): 578997222 (5) Hyperbilirubinemia Current Visit: No Status: Acute Code(s): E80.6 - OTHER DISORDERS OF BILIRUBIN METABOLISM SNOMED Code(s): 43109853 Plan: Supportive care Okay for sodium restricted diet as tolerated Continue lactulose therapy Continue octreotide and midodrine for suspected hepatorenal syndrome Albumin therapy Appreciate recommendations from nephrology service Extensive discussion with the primary team as well as the patient about overall poor prognosis, the patient would not be a candidate for liver transplant given her poor functional status as well as social issues, the patient did make herself DO NOT RESUSCITATE and at this time is considering comfort care Thank you for allowing us to participate in the care of the patient we will continue to follow
[2020-03-25 11:50] LABS: Glucose,Whole Blood 165 mg/dL (75-99)
[2020-03-25] MEDS ORDERED: DEXTROSE 50% SYRINGE 50 ML IVP STA (12:14)
[2020-03-25] MEDS ORDERED: SODIUM POLYSTYRENE SULFONATE 15 GM/60 ML BOTTLE PO STA (12:19)
[2020-03-25] MEDS ORDERED: INSULIN REGULAR 100 UNIT/ML VIAL IV ONE (12:30)
--- NOTE | 2020-03-25 14:08 | P.PN ---
Subjective Progress Note Date: 03/25/20 Principal diagnosis: Decompensated Becker cirrhosis, ascites, encephalopathy Patient seen lying in bed in no acute complaints. No changes from yesterday. Tolerating diet. Objective - Vital Signs Vital signs: Vital Signs Temp 97.4 F L 03/25/20 08:00 Pulse 82 03/25/20 08:00 Resp 14 03/25/20 08:00 BP 92/56 03/25/20 08:00 Pulse Ox 90 L 03/25/20 08:00 Intake & Output 03/24/20 03/25/20 03/25/20 18:59 06:59 18:59 Intake Total 880 1268 Output Total 1080 210 Balance -200 1058 Weight 108.862 kg Intake: Intake, IV Titration 170 900 Amount Albumin Human 25% 50 ml 350 In Empty Bag 1 bag @ 50 mls/hr IVPB Q2HR [facility] Rx#: [id number] Albumin Human 25% 50 ml 50 50 In Empty Bag 1 bag @ 50 mls/hr IVPB Q2HR [facility] Rx#: [id number] Sodium Chloride 0.9% 1, 120 000 ml @ 100 mls/hr IV . Q10H [facility] Rx#:[id number] Sodium Chloride 0.9% 500 500 ml 500 ml @ 999 mls/hr IV .Q31M [facility] Rx#:[id number] Oral 710 368 Output: Urine 1080 210 Other: Voiding Method Incontinent Incontinent Indwelling Catheter Indwelling Catheter Indwelling Catheter # Voids 2 # Bowel Movements 1 - Exam On physical examination, patient appears comfortable in no apparent distress. HEAD: Normocephalic, atraumatic. EYES: No scleral icterus. No conjunctival injection. MOUTH: No lesions, tongue midline. NECK: Trachea midline, no gross abnormalities. CHEST: Clear to auscultation with no wheezing or rhonchi appreciated. HEART: Regular rate and rhythm. ABDOMEN: Soft, obese and mildly distended. Bowel sounds are positive. No organomegaly. No guarding or rigidity. EXTREMITIES: Bilateral pedal edema. SKIN: No rashes, jaundice. NEUROLOGIC: Alert and oriented x3. No focal deficits. - Labs CBC & Chem 7: 03/25/20 05:51 03/25/20 05:51 Labs: Abnormal Lab Results - Last 24 Hours (Table) 03/24/20 03/24/20 03/24/20 Range/Units 07:50 07:50 16:50 RBC (3.80-5.40) m/uL Hgb (11.4-16.0) gm/dL Hct (34.0-46.0) % RDW (11.5-15.5) % Plt Count 54 L (150-450) k/uL PT (9.9-11.9) sec INR (0.90-1.11) Sodium 127 L (135-145) mmol/L Potassium (3.5-5.5) mmol/L BUN 72.0 H (9.0-27.0) mg/dL Creatinine 3.4 H (0.6-1.5) mg/dL Est GFR (CKD-EPI)AfAm 17.7 L (60.0-200.0) Est GFR (CKD-EPI)NonAf 15.3 L (60.0-200.0) BUN/Creatinine Ratio 21.18 H (12.00-20.00) Ratio Glucose 69 L (70-110) mg/dL POC Glucose (mg/dL) 119 H (75-99) mg/dL Calcium 8.0 L (8.7-10.3) mg/dL Total Bilirubin 3.6 H (0.3-1.2) mg/dL AST 71 H (13-35) U/L Alkaline Phosphatase 202 H (41-126) U/L Total Protein 5.7 L (6.2-8.2) g/dL Albumin 2.60 L (3.80-4.90) g/dL Albumin/Globulin Ratio 0.84 L (1.60-3.17) g/dL 03/24/20 03/25/20 03/25/20 Range/Units 19:49 05:51 05:51 RBC 2.29 L (3.80-5.40) m/uL Hgb 7.0 L (11.4-16.0) gm/dL Hct 21.3 L (34.0-46.0) % RDW 24.9 H (11.5-15.5) % Plt Count 47 L (150-450) k/uL PT 17.3 H (9.9-11.9) sec INR 1.66 H (0.90-1.11) Sodium (135-145) mmol/L Potassium (3.5-5.5) mmol/L BUN (9.0-27.0) mg/dL Creatinine (0.6-1.5) mg/dL Est GFR (CKD-EPI)AfAm (60.0-200.0) Est GFR (CKD-EPI)NonAf (60.0-200.0) BUN/Creatinine Ratio (12.00-20.00) Ratio Glucose (70-110) mg/dL POC Glucose (mg/dL) 174 H (75-99) mg/dL Calcium (8.7-10.3) mg/dL Total Bilirubin (0.3-1.2) mg/dL AST (13-35) U/L Alkaline Phosphatase (41-126) U/L Total Protein (6.2-8.2) g/dL Albumin (3.80-4.90) g/dL Albumin/Globulin Ratio (1.60-3.17) g/dL 03/25/20 03/25/20 03/25/20 Range/Units 05:51 07:56 11:48 RBC (3.80-5.40) m/uL Hgb (11.4-16.0) gm/dL Hct (34.0-46.0) % RDW (11.5-15.5) % Plt Count (150-450) k/uL PT (9.9-11.9) sec INR (0.90-1.11) Sodium 128 L (135-145) mmol/L Potassium 5.7 H (3.5-5.5) mmol/L BUN 73.0 H (9.0-27.0) mg/dL Creatinine 3.6 H (0.6-1.5) mg/dL Est GFR (CKD-EPI)AfAm 16.5 L (60.0-200.0) Est GFR (CKD-EPI)NonAf 14.2 L (60.0-200.0) BUN/Creatinine Ratio 20.28 H (12.00-20.00) Ratio Glucose 172 H (70-110) mg/dL POC Glucose (mg/dL) 185 H 165 H (75-99) mg/dL Calcium 8.4 L (8.7-10.3) mg/dL Total Bilirubin 3.1 H (0.3-1.2) mg/dL AST 61 H (13-35) U/L Alkaline Phosphatase 167 H (41-126) U/L Total Protein 5.8 L (6.2-8.2) g/dL Albumin 3.30 L (3.80-4.90) g/dL Albumin/Globulin Ratio 1.32 L (1.60-3.17) g/dL Assessment and Plan (1) Cirrhosis Narrative/Plan: 49-year-old female with multiple complex medical problems including decompen sated Becker cirrhosis requiring frequent large volume paracentesis and encephalopathy who presented due to laboratory abnormalities. Patient found to have elevation in creatinine and electrolyte abnormalities on presentation. Currently she is been seen by the nephrology service. She has a known history of decompensated cirrhosis and has been treated with diuretic therapy and high volume paracentesis in the past as well as lactulose for encephalopathy. She was previously referred to [facility] but as failed to follow up due to social issues. Current Visit: No Status: Acute Code(s): K74.60 - UNSPECIFIED CIRRHOSIS OF LIVER SNOMED Code(s): 80529076 (2) Hyperkalemia Current Visit: Yes Status: Acute Code(s): E87.5 - HYPERKALEMIA SNOMED Code(s): 16897362 (3) Abdominal distention Current Visit: No Status: Acute Code(s): R14.0 - ABDOMINAL DISTENSION (GASEOUS) SNOMED Code(s): 46088449 (4) Ascites Current Visit: No Status: Acute Code(s): R18.8 - OTHER ASCITES SNOMED Code(s): 438971888 (5) Hyperbilirubinemia Current Visit: No Status: Acute Code(s): E80.6 - OTHER DISORDERS OF BILIRUBIN METABOLISM SNOMED Code(s): 75843938 Plan: Supportive care Okay for sodium restricted diet as tolerated Continue lactulose therapy Continue octreotide and midodrine for suspected hepatorenal syndrome Albumin therapy Appreciate recommendations from nephrology service Extensive discussion with the primary team as well as the patient about overall poor prognosis, the patient would not be a candidate for liver transplant given her poor functional status as well as social issues, the patient did make herself DO NOT RESUSCITATE and the primary team has discussed options with the patient regarding comfort care which will be evaluated further Thank you for allowing us to participate in the care of the patient we will continue to follow
[2020-03-25] MEDS: HYDROmorphone 0.5 MG/0.5 ML SYRINGE IVP PRN (15:13)
[2020-03-25] MEDS: FOLIC ACID 1 MG TAB PO SCH (15:13)
--- NOTE | 2020-03-25 16:08 | P.PN ---
Subjective Progress Note Date: 03/25/20 Follow-up for acute kidney injury. Oliguric. Objective - Vital Signs Vital signs: Vital Signs Temp 97.9 F 03/25/20 14:00 Pulse 92 03/25/20 14:00 Resp 14 03/25/20 14:00 BP 91/53 03/25/20 14:00 Pulse Ox 91 L 03/25/20 14:00 Intake & Output 03/24/20 03/25/20 03/25/20 18:59 06:59 18:59 Intake Total 880 1268 Output Total 1080 210 Balance -200 1058 Weight 108.862 kg Intake: Intake, IV Titration 170 900 Amount Albumin Human 25% 50 ml 350 In Empty Bag 1 bag @ 50 mls/hr IVPB Q2HR [facility] Rx#: [id number] Albumin Human 25% 50 ml 50 50 In Empty Bag 1 bag @ 50 mls/hr IVPB Q2HR [facility] Rx#: [id number] Sodium Chloride 0.9% 1, 120 000 ml @ 100 mls/hr IV . Q10H [facility] Rx#:[id number] Sodium Chloride 0.9% 500 500 ml 500 ml @ 999 mls/hr IV .Q31M [facility] Rx#:[id number] Oral 710 368 Output: Urine 1080 210 Other: Voiding Method Incontinent Incontinent Indwelling Catheter Indwelling Catheter Indwelling Catheter # Voids 2 # Bowel Movements 1 - Exam Exam limited secondary to covid-19 pandemic and to limit ppe - Labs CBC & Chem 7: 03/25/20 05:51 03/25/20 05:51 Labs: Abnormal Lab Results - Last 24 Hours (Table) 03/24/20 03/24/20 03/25/20 Range/Units 16:50 19:49 05:51 RBC 2.29 L (3.80-5.40) m/uL Hgb 7.0 L (11.4-16.0) gm/dL Hct 21.3 L (34.0-46.0) % RDW 24.9 H (11.5-15.5) % Plt Count 47 L (150-450) k/uL PT (9.9-11.9) sec INR (0.90-1.11) Sodium (135-145) mmol/L Potassium (3.5-5.5) mmol/L BUN (9.0-27.0) mg/dL Creatinine (0.6-1.5) mg/dL Est GFR (CKD-EPI)AfAm (60.0-200.0) Est GFR (CKD-EPI)NonAf (60.0-200.0) BUN/Creatinine Ratio (12.00-20.00) Ratio Glucose (70-110) mg/dL POC Glucose (mg/dL) 119 H 174 H (75-99) mg/dL Calcium (8.7-10.3) mg/dL Total Bilirubin (0.2-1.2) mg/dL AST (13-35) U/L Alkaline Phosphatase (41-126) U/L Total Protein (6.2-8.2) g/dL Albumin (3.80-4.90) g/dL Albumin/Globulin Ratio (1.60-3.17) g/dL 03/25/20 03/25/20 03/25/20 Range/Units 05:51 05:51 07:56 RBC (3.80-5.40) m/uL Hgb (11.4-16.0) gm/dL Hct (34.0-46.0) % RDW (11.5-15.5) % Plt Count (150-450) k/uL PT 17.3 H (9.9-11.9) sec INR 1.66 H (0.90-1.11) Sodium 128 L (135-145) mmol/L Potassium 5.7 H (3.5-5.5) mmol/L BUN 73.0 H (9.0-27.0) mg/dL Creatinine 3.6 H (0.6-1.5) mg/dL Est GFR (CKD-EPI)AfAm 16.5 L (60.0-200.0) Est GFR (CKD-EPI)NonAf 14.2 L (60.0-200.0) BUN/Creatinine Ratio 20.28 H (12.00-20.00) Ratio Glucose 172 H (70-110) mg/dL POC Glucose (mg/dL) 185 H (75-99) mg/dL Calcium 8.4 L (8.7-10.3) mg/dL Total Bilirubin 3.1 H (0.2-1.2) mg/dL AST 61 H (13-35) U/L Alkaline Phosphatase 167 H (41-126) U/L Total Protein 5.8 L (6.2-8.2) g/dL Albumin 3.30 L (3.80-4.90) g/dL Albumin/Globulin Ratio 1.32 L (1.60-3.17) g/dL 03/25/20 Range/Units 11:48 RBC (3.80-5.40) m/uL Hgb (11.4-16.0) gm/dL Hct (34.0-46.0) % RDW (11.5-15.5) % Plt Count (150-450) k/uL PT (9.9-11.9) sec INR (0.90-1.11) Sodium (135-145) mmol/L Potassium (3.5-5.5) mmol/L BUN (9.0-27.0) mg/dL Creatinine (0.6-1.5) mg/dL Est GFR (CKD-EPI)AfAm (60.0-200.0) Est GFR (CKD-EPI)NonAf (60.0-200.0) BUN/Creatinine Ratio (12.00-20.00) Ratio Glucose (70-110) mg/dL POC Glucose (mg/dL) 165 H (75-99) mg/dL Calcium (8.7-10.3) mg/dL Total Bilirubin (0.2-1.2) mg/dL AST (13-35) U/L Alkaline Phosphatase (41-126) U/L Total Protein (6.2-8.2) g/dL Albumin (3.80-4.90) g/dL Albumin/Globulin Ratio (1.60-3.17) g/dL Assessment and Plan Assessment: #1 acute kidney injury suspect hepatorenal syndrome -Large volume paracentesis without albumin. 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 Renal function still the same. #2 currently on midodrine and octreotide, give albumin 100 g daily for 2 days. #3 vent management for hyperkalemia. #4 monitor strict ins and outs. #5 avoid nephrotoxic agents and hypotensive episodes. #6 prognosis guarded, hospice appropriate.
[2020-03-25 16:29] LABS: Glucose,Whole Blood 155 mg/dL (75-99)
--- NOTE | 2020-03-25 16:49 | P.PN ---
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 She underwent outpati ent paracentesis on 03/23 with the removal of 8.5 L of fluid. On arrival to the ER her vital signs were found to be within normal limits. Initial laboratory analysis shows hemoglobin 8.5, platelets 87, sodium 124, potassium 5.8, BUN 70, creatinine 3.51, INR 1.7, AST 65, alkaline phosphatase 194, ammonia 63. Arrangements are made for admission for hepatorenal syndrome. Her diuretics were stopped. She was started on albumin, midodrine, and octreotide. Nephrology was consulted. Patient seen and examined at bedside. Feeling relatively comfortable, no additional nausea, no chest pain, no shortness of breath General: Chronically ill-appearing, no distress, appears at stated age, temporal and buccal wasting Derm: warm, dry Head: atraumatic, normocephalic, symmetric Eyes: EOMI, no lid lag, anicteric sclera Mouth: no lip lesion, mucus membranes moist Cardiovascular: S1S2 reg, no murmur, positive posterior tibial pulse bilateral, Lungs: Decreased breath sounds bilateral, no rhonchi, no rales , no accessory muscle use Abdominal: soft, nontender to palpation, no guarding, no appreciable organomegaly Ext: no gross muscle atrophy, 4+ edema bilateral lower extremities, no contractures Neuro: CN II-XI grossly intact, no focal neuro deficits Psych: Alert, oriented, appropriate affect Acute kidney injury, hyperkalemia, hyponatremia with CKD -Kayexalate ordered, insulin and glucose ordered -Suspect hepatorenal syndrome -Hold diuretics -Nephrology recs appreciated -Continue Midrin, treated type, and albumin -Avoid additional nephrotoxic agents -Follow BMP closely End-stage cirrhosis requiring recurrent paracentesis -Case discussed with Dr. Read. She is now a DNR. -Continue to monitor Diabetes mellitus type 2, insulin controlled -Sliding-scale insulin -Follow blood sugars -Hemoglobin A1c 4.7 on 03/07/20 Anemia, thrombocytopenia -Follow CBC - suspect due to advanced liver disease Bipolar disorder -Continue current medications DVT prophylaxis: SCDs Discussed with: Patient, nursing, Dr. Read Anticipated discharge: 4-[address]: undetermined A total of 35 minutes was spent on the care of this complex patient more than 50% of the time was spent in counseling and care coordination. Objective - Vital Signs Vital signs: Vital Signs Temp 97.9 F 03/25/20 14:00 Pulse 92 03/25/20 14:00 Resp 14 03/25/20 14:00 BP 91/53 03/25/20 14:00 Pulse Ox 91 L 03/25/20 14:00 Intake & Output 03/24/20 03/25/20 03/25/20 18:59 06:59 18:59 Intake Total 880 1268 Output Total 1080 210 Balance -200 1058 Weight 108.862 kg Intake: Intake, IV Titration 170 900 Amount Albumin Human 25% 50 ml 350 In Empty Bag 1 bag @ 50 mls/hr IVPB [facility] Rx#: [id number] Albumin Human 25% 50 ml 50 50 In Empty Bag 1 bag @ 50 mls/hr IVPB Q[facility] Rx#: [id number] Sodium Chloride 0.9% 1, 120 000 ml @ 100 mls/hr IV . Q10H [facility] Rx#:[id number] Sodium Chloride 0.9% 500 500 ml 500 ml @ 999 mls/hr IV .Q31M [facility] Rx#:[id number] Oral 710 368 Output: Urine 1080 210 Other: Voiding Method Incontinent Incontinent Indwelling Catheter Indwelling Catheter Indwelling Catheter # Voids 2 # Bowel Movements 1 - Labs CBC & Chem 7: 03/25/20 05:51 03/25/20 05:51 Labs: Abnormal Lab Results - Last 24 Hours (Table) 03/24/20 03/24/20 03/25/20 Range/Units 16:50 19:49 05:51 RBC 2.29 L (3.80-5.40) m/uL Hgb 7.0 L (11.4-16.0) gm/dL Hct 21.3 L (34.0-46.0) % RDW 24.9 H (11.5-15.5) % Plt Count 47 L (150-450) k/uL PT (9.9-11.9) sec INR (0.90-1.11) Sodium (135-145) mmol/L Potassium (3.5-5.5) mmol/L BUN (9.0-27.0) mg/dL Creatinine (0.6-1.5) mg/dL Est GFR (CKD-EPI)AfAm (60.0-200.0) Est GFR (CKD-EPI)NonAf (60.0-200.0) BUN/Creatinine Ratio (12.00-20.00) Ratio Glucose (70-110) mg/dL POC Glucose (mg/dL) 119 H 174 H (75-99) mg/dL Calcium (8.7-10.3) mg/dL Total Bilirubin (0.2-1.2) mg/dL AST (13-35) U/L Alkaline Phosphatase (41-126) U/L Total Protein (6.2-8.2) g/dL Albumin (3.80-4.90) g/dL Albumin/Globulin Ratio (1.60-3.17) g/dL 03/25/20 03/25/20 03/25/20 Range/Units 05:51 05:51 07:56 RBC (3.80-5.40) m/uL Hgb (11.4-16.0) gm/dL Hct (34.0-46.0) % RDW (11.5-15.5) % Plt Count (150-450) k/uL PT 17.3 H (9.9-11.9) sec INR 1.66 H (0.90-1.11) Sodium 128 L (135-145) mmol/L Potassium 5.7 H (3.5-5.5) mmol/L BUN 73.0 H (9.0-27.0) mg/dL Creatinine 3.6 H (0.6-1.5) mg/dL Est GFR (CKD-EPI)AfAm 16.5 L (60.0-200.0) Est GFR (CKD-EPI)NonAf 14.2 L (60.0-200.0) BUN/Creatinine Ratio 20.28 H (12.00-20.00) Ratio Glucose 172 H (70-110) mg/dL POC Glucose (mg/dL) 185 H (75-99) mg/dL Calcium 8.4 L (8.7-10.3) mg/dL Total Bilirubin 3.1 H (0.2-1.2) mg/dL AST 61 H (13-35) U/L Alkaline Phosphatase 167 H (41-126) U/L Total Protein 5.8 L (6.2-8.2) g/dL Albumin 3.30 L (3.80-4.90) g/dL Albumin/Globulin Ratio 1.32 L (1.60-3.17) g/dL 03/25/20 03/25/20 Range/Units 11:48 16:28 RBC (3.80-5.40) m/uL Hgb (11.4-16.0) gm/dL Hct (34.0-46.0) % RDW (11.5-15.5) % Plt Count (150-450) k/uL PT (9.9-11.9) sec INR (0.90-1.11) Sodium (135-145) mmol/L Potassium (3.5-5.5) mmol/L BUN (9.0-27.0) mg/dL Creatinine (0.6-1.5) mg/dL Est GFR (CKD-EPI)AfAm (60.0-200.0) Est GFR (CKD-EPI)NonAf (60.0-200.0) BUN/Creatinine Ratio (12.00-20.00) Ratio Glucose (70-110) mg/dL POC Glucose (mg/dL) 165 H 155 H (75-99) mg/dL Calcium (8.7-10.3) mg/dL Total Bilirubin (0.2-1.2) mg/dL AST (13-35) U/L Alkaline Phosphatase (41-126) U/L Total Protein (6.2-8.2) g/dL Albumin (3.80-4.90) g/dL Albumin/Globulin Ratio (1.60-3.17) g/dL
--- NOTE | 2020-03-25 16:53 | P.PN ---
Progress Note - Text Progress Note Date: 03/25/20 Advanced Care Planning: Diagnoses: End-stage liver disease secondary to nonalcoholic steatohepatitis Discussion: Person(s) present and participating in discussion: Ry Summary: Her Main Goal is to see her son one more time who is in the [place] in [place]. We discussed that she will not survive this liver disease and renal failure and she states that she was expecting this. We discussed different care plan options. She knows that no one would be able to take care of her at home and she will need 24-hour carelike she was receiving at [facility]. We discussed continuing with traditional medical care. Possible hospice care with focus on controlling symptoms and pain, and accommodation of both. Patient will reflect on this throughout the day today and we will discuss again tomorrow. She will contact her son to see what we can do to help get him here. If he need phone calls or paperwork I will complete these. If I do not hear and update tomorrow I have worked with the irene to help with these situations in the past. We will ensure that she meets her goal to see her son again. A total of 35 minutes of face to face time was spent discussing advanced care planning.
[2020-03-25] MEDS: traZODone HCL 100 MG TAB PO SCH (22:24)
[2020-03-25 22:39] LABS: Glucose,Whole Blood 168 mg/dL (75-99)
[2020-03-26] MEDS: ALBUMIN HUMAN 25% 50 ML in EMPTY BAG 1 BAG IVPB SCH ×3 (02:31→05:33)
[2020-03-26] MEDS: HYDROmorphone 0.5 MG/0.5 ML SYRINGE IVP PRN ×2 (05:36→18:08)
[2020-03-26 07:23] LABS: Glucose,Whole Blood 146 mg/dL (75-99)
[2020-03-26 07:26] LABS: Anisocytosis Marked; HCT 23.5 % (34.0-46.0); HGB 7.3 gm/dL (11.4-16.0); Hypochromasia Moderate; MCH 29.1 pg (25.0-35.0); MCHC 30.9 g/dL (31.0-37.0); MCV 94.3 fL (80.0-100.0); Macrocytosis Slight; Mean Platelet Volume 7.7; Microcytosis Slight; RBC 2.49 m/uL (3.80-5.40); RDW 24.7 % (11.5-15.5); WBC 3.7 k/uL (3.8-10.6)
[2020-03-26] MEDS: PANTOPRAZOLE 40 MG TABLET PO SCH ×2 (07:52→16:26)
[2020-03-26] MEDS: SERTRALINE 100 MG TAB PO SCH (07:52)
[2020-03-26] MEDS: INSULIN ASPART (NovoLOG) 100 UNIT/ML VIAL SQ SCH ×4 (07:53→20:33)
[2020-03-26] MEDS: lamoTRIgine 25 MG TAB PO SCH ×3 (07:53→17:51)
[2020-03-26] MEDS: OCTREOTIDE 100 MCG/ML INJ SQ SCH ×2 (07:54→16:25)
[2020-03-26] MEDS: LACTULOSE 20 GM/30 ML CUP PO SCH ×3 (07:54→17:50)
[2020-03-26] MEDS: MIDODRINE 5 MG TAB PO SCH ×3 (07:54→16:26)
[2020-03-26] MEDS: ENOXAPARIN 30 MG/0.3 ML SYRINGE SQ SCH (08:07)
[2020-03-26 08:21] LABS: Platelet Count 40 k/uL (150-450)
[2020-03-26 09:26] LABS: INR 1.66 (0.90-1.11); Prothrombin Time 17.3 sec (9.9-11.9)
--- NOTE | 2020-03-26 10:57 | P.PN ---
Subjective Patient is seen in follow-up for acute kidney injury. She completed IV albumin yesterday. Quite edematous. Denies chest pain or shortness of breath. No abdominal pain. Vital signs are stable. General: The patient appeared well nourished and normally developed. HEENT: Head exam is unremarkable. Neck is without jugular venous distension. LUNGS: Breath sounds decreased. HEART: Rate and Rhythm are regular. ABDOMEN: Soft, nontender. EXTREMITITES: 2+ edema. Objective - Vital Signs Vital signs: Vital Signs Temp 97.7 F 03/26/20 07:44 Pulse 85 03/26/20 07:44 Resp 18 03/26/20 08:00 BP 96/53 03/26/20 07:44 Pulse Ox 90 L 03/26/20 07:44 Intake & Output 03/25/20 03/26/20 03/26/20 18:59 06:59 18:59 Intake Total 980 150 Output Total 190 100 Balance 790 50 Intake: Intake, IV Titration 100 150 Amount Albumin Human 25% 50 ml 100 150 In Empty Bag 1 bag @ 50 mls/hr IVPB Q2HR [facility] Rx#: [id number] Oral 880 Output: Urine 190 100 Other: Voiding Method Indwelling Catheter Indwelling Catheter Indwelling Catheter # Voids 1 - Labs CBC & Chem 7: 03/26/20 06:27 03/25/20 05:51 Labs: Abnormal Lab Results - Last 24 Hours (Table) 03/25/20 03/25/20 03/25/20 Range/Units 11:48 16:28 22:20 WBC (3.8-10.6) k/uL RBC (3.80-5.40) m/uL Hgb (11.4-16.0) gm/dL Hct (34.0-46.0) % MCHC (31.0-37.0) g/dL RDW (11.5-15.5) % Plt Count (150-450) k/uL PT (9.9-11.9) sec INR (0.90-1.11) POC Glucose (mg/dL) 165 H 155 H 168 H (75-99) mg/dL 03/26/20 03/26/20 03/26/20 Range/Units 06:27 06:27 07:22 WBC 3.7 L (3.8-10.6) k/uL RBC 2.49 L (3.80-5.40) m/uL Hgb 7.3 L (11.4-16.0) gm/dL Hct 23.5 L (34.0-46.0) % MCHC 30.9 L (31.0-37.0) g/dL RDW 24.7 H (11.5-15.5) % Plt Count 40 L (150-450) k/uL PT 17.3 H (9.9-11.9) sec INR 1.66 H (0.90-1.11) POC Glucose (mg/dL) 146 H (75-99) mg/dL Assessment and Plan Plan: Assessment: 1. Acute kidney injury secondary to ATN secondary to hepatorenal syndrome. Creatinine stable at 3.6 as of yesterday. 2. Hypervolemic hyponatremia. 3. Hyperkalemia secondary to acute kidney injury, metabolic acidosis and Aldactone. 4. Decompensated liver cirrhosis. 5. Hypotension secondary to cirrhosis maintained on midodrine. 6. Volume overload. Plan: Added IV Lasix 80 mg twice daily. Hold off on spironolactone due to hyperkalemia. Encouraged oral intake, particularly protein. Low-salt diet and 1.5 L fluid restriction. Patient refusing any form of renal replacement therapy. Hospice being considered. Awaiting son's arrival. Case discussed with the primary team.
[2020-03-26 11:21] LABS: Glucose,Whole Blood 183 mg/dL (75-99)
[2020-03-26] MEDS: FUROSEMIDE 10 MG/ML 10 ML VIAL IV SCH ×2 (11:46→20:34)
[2020-03-26 12:12] LABS: African American GFR (CKD) 14.5 (60.0-200.0); Albumin 4.4 g/dL (3.80-4.90); Albumin/Globulin Ratio 1.91 (1.60-3.17); BUN/Creat Ratio 19.75 Ratio (12.00-20.00); Calcium 8.9 mg/dL (8.7-10.3); Globulin 2.3 g/dL (1.6-3.3); Non-African American GFR(CKD) 12.5 (60.0-200.0); Potassium 5.1 mmol/L (3.5-5.5); Total Bilirubin 3.2 mg/dL (0.2-1.2); Total Protein 6.7 g/dL (6.2-8.2)
--- NOTE | 2020-03-26 15:33 | P.PN ---
Subjective Progress Note Date: 03/26/20 Principal diagnosis: Decompensated Becker cirrhosis, ascites, encephalopathy This is a 49-year-old female with a history of decompensated cirrhosis from Becker, ascites who requires frequent paracentesis approximately every 10-14 days, and encephalopathy. Patient has been seen by nephrology for worsening kidney function. The patient has little support at home, has been noncompliant in the past with medication and follow-up. The patient has a poor prognosis and medicine as well as nephrology have discussed with patient considering possible hospice and comfort care. Dr. Zapata is trying to arrange patient's son to be able to visit the patient who is active in the [employer] and station in [place]. Today she states she is overall feeling well, she denies any abdominal pain, nausea, or vomiting. Objective - Vital Signs Vital signs: Vital Signs Temp 98.1 F 03/26/20 14:00 Pulse 93 03/26/20 14:00 Resp 20 03/26/20 14:00 BP 98/57 03/26/20 14:00 Pulse Ox 91 L 03/26/20 14:00 Intake & Output 03/25/20 03/26/20 03/26/20 18:59 06:59 18:59 Intake Total 980 150 Output Total 190 100 Balance 790 50 Intake: Intake, IV Titration 100 150 Amount Albumin Human 25% 50 ml 100 150 In Empty Bag 1 bag @ 50 mls/hr IVPB Q2HR [facility] Rx#: [id number] Oral 880 Output: Urine 190 100 Other: Voiding Method Indwelling Catheter Indwelling Catheter Indwelling Catheter # Voids 1 - Exam General appearance: The patient is alert, oriented, in no acute distress. HET: Head is normocephalic and atraumatic. Conjunctiva pink. Sclera anicteric. Neck: Supple without lymphadenopathy. Abdomen: Soft, obese, nontender, mildy distended. No guarding or rigidity. Extremities: Normal skin color and turgor. Bilateral lower extremity +2 pitting edema Neurological: No focal deficits. Alert and oriented 3. - Labs CBC & Chem 7: 03/26/20 06:27 03/26/20 06:27 Labs: Abnormal Lab Results - Last 24 Hours (Table) 03/25/20 03/25/20 03/26/20 Range/Units 16:28 22:20 06:27 WBC 3.7 L (3.8-10.6) k/uL RBC 2.49 L (3.80-5.40) m/uL Hgb 7.3 L (11.4-16.0) gm/dL Hct 23.5 L (34.0-46.0) % MCHC 30.9 L (31.0-37.0) g/dL RDW 24.7 H (11.5-15.5) % Plt Count 40 L (150-450) k/uL PT (9.9-11.9) sec INR (0.90-1.11) Sodium (135-145) mmol/L Chloride (96-109) mmol/L Carbon Dioxide (21.6-31.8) mmol/L Anion Gap (4.00-12.00) mmol/L BUN (9.0-27.0) mg/dL Creatinine (0.6-1.5) mg/dL Est GFR (CKD-EPI)AfAm (60.0-200.0) Est GFR (CKD-EPI)NonAf (60.0-200.0) Glucose (70-110) mg/dL POC Glucose (mg/dL) 155 H 168 H (75-99) mg/dL Total Bilirubin (0.2-1.2) mg/dL AST (13-35) U/L Alkaline Phosphatase (41-126) U/L 03/26/20 03/26/20 03/26/20 Range/Units 06:27 06:27 07:22 WBC (3.8-10.6) k/uL RBC (3.80-5.40) m/uL Hgb (11.4-16.0) gm/dL Hct (34.0-46.0) % MCHC (31.0-37.0) g/dL RDW (11.5-15.5) % Plt Count (150-450) k/uL PT 17.3 H (9.9-11.9) sec INR 1.66 H (0.90-1.11) Sodium 128 L (135-145) mmol/L Chloride 94 L (96-109) mmol/L Carbon Dioxide 21.0 L (21.6-31.8) mmol/L Anion Gap 13.00 H (4.00-12.00) mmol/L BUN 79.0 H (9.0-27.0) mg/dL Creatinine 4.0 H (0.6-1.5) mg/dL Est GFR (CKD-EPI)AfAm 14.5 L (60.0-200.0) Est GFR (CKD-EPI)NonAf 12.5 L (60.0-200.0) Glucose 134 H (70-110) mg/dL POC Glucose (mg/dL) 146 H (75-99) mg/dL Total Bilirubin 3.2 H (0.2-1.2) mg/dL AST 55 H (13-35) U/L Alkaline Phosphatase 149 H (41-126) U/L 03/26/20 Range/Units 11:20 WBC (3.8-10.6) k/uL RBC (3.80-5.40) m/uL Hgb (11.4-16.0) gm/dL Hct (34.0-46.0) % MCHC (31.0-37.0) g/dL RDW (11.5-15.5) % Plt Count (150-450) k/uL PT (9.9-11.9) sec INR (0.90-1.11) Sodium (135-145) mmol/L Chloride (96-109) mmol/L Carbon Dioxide (21.6-31.8) mmol/L Anion Gap (4.00-12.00) mmol/L BUN (9.0-27.0) mg/dL Creatinine (0.6-1.5) mg/dL Est GFR (CKD-EPI)AfAm (60.0-200.0) Est GFR (CKD-EPI)NonAf (60.0-200.0) Glucose (70-110) mg/dL POC Glucose (mg/dL) 183 H (75-99) mg/dL Total Bilirubin (0.2-1.2) mg/dL AST (13-35) U/L Alkaline Phosphatase (41-126) U/L Assessment and Plan (1) Cirrhosis Narrative/Plan: Narrative/Plan: 49-year-old female with multiple complex medical problems including decompensated Becker cirrhosis requiring frequent large volume paracentesis and encephalopathy who presented due to laboratory abnormalities. Patient found to have elevation in creatinine and electrolyte abnormalities on presentation. Currently she is been seen by the nephrology service. She has a known history of decompensated cirrhosis and has been treated with diuretic therapy and high volume paracentesis in the past as well as lactulose for encephalopathy. She was previously referred to [facility] but has failed to follow up due to social issues. Current Visit: No Status: Acute Code(s): K74.60 - UNSPECIFIED CIRRHOSIS OF LIVER SNOMED Code(s): 46300643 (2) Ascites Current Visit: No Status: Acute Code(s): R18.8 - OTHER ASCITES SNOMED Code(s): 034319369 (3) Hyperkalemia Current Visit: Yes Status: Acute Code(s): E87.5 - HYPERKALEMIA SNOMED Code(s): 01699327 (4) Abdominal distention Current Visit: No Status: Acute Code(s): R14.0 - ABDOMINAL DISTENSION (GASEOUS) SNOMED Code(s): 23104741 (5) Hyperbilirubinemia Current Visit: No Status: Acute Code(s): E80.6 - OTHER DISORDERS OF BILIRUBIN METABOLISM SNOMED Code(s): 00555965 Plan: Supportive care Okay for sodium restricted diet as tolerated Continue lactulose therapy Continue octreotide and midodrine for suspected hepatorenal syndrome Albumin therapy Appreciate recommendations from nephrology service Extensive discussion was had by Dr. Read with the primary team, as well as the patient about overall poor prognosis, the patient would not be a candidate for liver transplant given her poor functional status as well as social issues, the patient did make herself DO NOT RESUSCITATE and the primary care team has discussed options with the patient regarding comfort care which patient still has not made a decision at this point. Thank you for allowing us to participate in the care of the patient we will continue to follow Dr. Kelsy Garrison I agree with the dictator's note ,documented as a scribe by Niko Man.
[2020-03-26 16:19] LABS: Glucose,Whole Blood 202 mg/dL (75-99)
[2020-03-26] MEDS: FOLIC ACID 1 MG TAB PO SCH (16:26)
--- NOTE | 2020-03-26 17:11 | P.PN ---
Subjective Progress Note Date: 03/26/20 (delayed charting seen at 1045) Principal diagnosis: renal failure Patient is a 49-year-old female with a history of nonalcoholic steatohepatitis resulting in liver cirrhosis requiring frequent outpatient paracentesis, diabetes mellitus type 2, hypertension, and dyslipidemia who presented to the ER from [facility] due to hyperkalemia and acute renal failure. She underwent outpati ent paracentesis on 03/23 with the removal of 8.5 L of fluid. On arrival to the ER her vital signs were found to be within normal limits. Initial laboratory analysis shows hemoglobin 8.5, platelets 87, sodium 124, potassium 5.8, BUN 70, creatinine 3.51, INR 1.7, AST 65, alkaline phosphatase 194, ammonia 63. Arrangements are made for admission for hepatorenal syndrome. Her diuretics were stopped. She was started on albumin, midodrine, and octreotide. Nephrology was consulted. Patient seen and examined at bedside. Feeling relatively comfortable, no additional nausea, no chest pain, no shortness of breath General: Chronically ill-appearing, no distress, appears at stated age, temporal and buccal wasting Derm: warm, dry Head: atraumatic, normocephalic, symmetric Eyes: EOMI, no lid lag, anicteric sclera Mouth: no lip lesion, mucus membranes moist Cardiovascular: S1S2 reg, no murmur, positive posterior tibial pulse bilateral, Lungs: Decreased breath sounds bilateral, no rhonchi, no rales , no accessory muscle use Abdominal: soft, nontender to palpation, no guarding, no appreciable organomegaly Ext: no gross muscle atrophy, 4+ edema bilateral lower extremities, no contractures Neuro: CN II-XI grossly intact, no focal neuro deficits Psych: Alert, oriented, appropriate affect Acute kidney injury, hyponatremia with CKD -hepatorenal syndrome -Nephrology recs appreciated: add Lasix IV 80 mg twice daily -Continue Midrin, octreotide and albumin -Avoid additional nephrotoxic agents -Follow BMP closely - does not want HD End-stage cirrhosis requiring recurrent paracentesis -DNR. Plans are for transition to hospice on dscharge - continue lactulose -Continue to monitor Diabetes mellitus type 2, insulin controlled -Sliding-scale insulin -Follow blood sugars -Hemoglobin A1c 4.7 on 03/07/20 Anemia, thrombocytopenia -Follow CBC - suspect due to advanced liver disease Bipolar disorder -Continue current medications Stage II pressure ulcer to coccyx - POA - Off load - wound care hyperkalemia, resolved Jan knox is getting her son Jose home. Case # [id number]. Plan will be to continue with current medical care to try to be as healthy as possible for one her son arrives. She then plans on transitioning to hospice. Ideally she would like to be in a place with hospice where she could have visitors. However she would be willing to go back to [facility] with hospice. DVT prophylaxis: SCDs Discussed with: Patient, nursing, Dr. Read Anticipated discharge: 4-[address]: undetermined A total of 35 minutes was spent on the care of this complex patient more than 50% of the time was spent in counseling and care coordination. Objective - Vital Signs Vital signs: Vital Signs Temp 98.1 F 03/26/20 14:00 Pulse 93 03/26/20 14:00 Resp 20 03/26/20 14:00 BP 98/57 03/26/20 14:00 Pulse Ox 91 L 03/26/20 14:00 Intake & Output 03/25/20 03/26/20 03/26/20 18:59 06:59 18:59 Intake Total 980 150 Output Total 190 100 Balance 790 50 Intake: Intake, IV Titration 100 150 Amount Albumin Human 25% 50 ml 100 150 In Empty Bag 1 bag @ 50 mls/hr IVPB Q2HR [facility] Rx#: [id number] Oral 880 Output: Urine 190 100 Other: Voiding Method Indwelling Catheter Indwelling Catheter Indwelling Catheter # Voids 1 - Labs CBC & Chem 7: 03/26/20 06:27 03/26/20 06:27 Labs: Abnormal Lab Results - Last 24 Hours (Table) 03/25/20 03/26/20 03/26/20 Range/Units 22:20 06:27 06:27 WBC 3.7 L (3.8-10.6) k/uL RBC 2.49 L (3.80-5.40) m/uL Hgb 7.3 L (11.4-16.0) gm/dL Hct 23.5 L (34.0-46.0) % MCHC 30.9 L (31.0-37.0) g/dL RDW 24.7 H (11.5-15.5) % Plt Count 40 L (150-450) k/uL PT 17.3 H (9.9-11.9) sec INR 1.66 H (0.90-1.11) Sodium (135-145) mmol/L Chloride (96-109) mmol/L Carbon Dioxide (21.6-31.8) mmol/L Anion Gap (4.00-12.00) mmol/L BUN (9.0-27.0) mg/dL Creatinine (0.6-1.5) mg/dL Est GFR (CKD-EPI)AfAm (60.0-200.0) Est GFR (CKD-EPI)NonAf (60.0-200.0) Glucose (70-110) mg/dL POC Glucose (mg/dL) 168 H (75-99) mg/dL Total Bilirubin (0.2-1.2) mg/dL AST (13-35) U/L Alkaline Phosphatase (41-126) U/L 03/26/20 03/26/20 03/26/20 Range/Units 06:27 07:22 11:20 WBC (3.8-10.6) k/uL RBC (3.80-5.40) m/uL Hgb (11.4-16.0) gm/dL Hct (34.0-46.0) % MCHC (31.0-37.0) g/dL RDW (11.5-15.5) % Plt Count (150-450) k/uL PT (9.9-11.9) sec INR (0.90-1.11) Sodium 128 L (135-145) mmol/L Chloride 94 L (96-109) mmol/L Carbon Dioxide 21.0 L (21.6-31.8) mmol/L Anion Gap 13.00 H (4.00-12.00) mmol/L BUN 79.0 H (9.0-27.0) mg/dL Creatinine 4.0 H (0.6-1.5) mg/dL Est GFR (CKD-EPI)AfAm 14.5 L (60.0-200.0) Est GFR (CKD-EPI)NonAf 12.5 L (60.0-200.0) Glucose 134 H (70-110) mg/dL POC Glucose (mg/dL) 146 H 183 H (75-99) mg/dL Total Bilirubin 3.2 H (0.2-1.2) mg/dL AST 55 H (13-35) U/L Alkaline Phosphatase 149 H (41-126) U/L 03/26/20 Range/Units 16:17 WBC (3.8-10.6) k/uL RBC (3.80-5.40) m/uL Hgb (11.4-16.0) gm/dL Hct (34.0-46.0) % MCHC (31.0-37.0) g/dL RDW (11.5-15.5) % Plt Count (150-450) k/uL PT (9.9-11.9) sec INR (0.90-1.11) Sodium (135-145) mmol/L Chloride (96-109) mmol/L Carbon Dioxide (21.6-31.8) mmol/L Anion Gap (4.00-12.00) mmol/L BUN (9.0-27.0) mg/dL Creatinine (0.6-1.5) mg/dL Est GFR (CKD-EPI)AfAm (60.0-200.0) Est GFR (CKD-EPI)NonAf (60.0-200.0) Glucose (70-110) mg/dL POC Glucose (mg/dL) 202 H (75-99) mg/dL Total Bilirubin (0.2-1.2) mg/dL AST (13-35) U/L Alkaline Phosphatase (41-126) U/L
[2020-03-26 19:49] LABS: Glucose,Whole Blood 199 mg/dL (75-99)
[2020-03-26] MEDS: traZODone HCL 100 MG TAB PO SCH (20:33)
[2020-03-27] MEDS: OCTREOTIDE 100 MCG/ML INJ SQ SCH ×3 (00:54→17:43)
[2020-03-27 05:51] LABS: Anisocytosis Marked; HCT 22.2 % (34.0-46.0); HGB 7.2 gm/dL (11.4-16.0); Hypochromasia Slight; MCH 30.5 pg (25.0-35.0); MCHC 32.3 g/dL (31.0-37.0); MCV 94.3 fL (80.0-100.0); Macrocytosis Slight; Mean Platelet Volume 8.4; Microcytosis Slight; RBC 2.36 m/uL (3.80-5.40); RDW 24.6 % (11.5-15.5); WBC 5.1 k/uL (3.8-10.6)
[2020-03-27 05:53] LABS: Platelet Count 41 k/uL (150-450)
[2020-03-27 07:30] LABS: Glucose,Whole Blood 159 mg/dL (75-99)
[2020-03-27] MEDS: MIDODRINE 5 MG TAB PO SCH ×3 (09:04→17:38)
[2020-03-27] MEDS: lamoTRIgine 25 MG TAB PO SCH ×2 (09:04→17:37)
[2020-03-27] MEDS: SERTRALINE 100 MG TAB PO SCH (09:04)
[2020-03-27] MEDS: PANTOPRAZOLE 40 MG TABLET PO SCH ×2 (09:04→17:40)
[2020-03-27] MEDS: LACTULOSE 20 GM/30 ML CUP PO SCH ×3 (09:05→17:40)
[2020-03-27] MEDS: FUROSEMIDE 10 MG/ML 10 ML VIAL IV SCH ×2 (09:05→19:24)
[2020-03-27] MEDS: INSULIN ASPART (NovoLOG) 100 UNIT/ML VIAL SQ SCH ×4 (09:05→21:58)
[2020-03-27] MEDS: ENOXAPARIN 30 MG/0.3 ML SYRINGE SQ SCH (09:05)
[2020-03-27 10:13] LABS: INR 1.62 (0.90-1.11); Prothrombin Time 16.9 sec (9.9-11.9)
[2020-03-27 10:14] LABS: African American GFR (CKD) 14.5 (60.0-200.0); Albumin 3.7 g/dL (3.80-4.90); Albumin/Globulin Ratio 1.76 (1.60-3.17); Anion Gap 9.4 mmol/L (4.00-12.00); BUN/Creat Ratio 21.75 Ratio (12.00-20.00); Calcium 8.7 mg/dL (8.7-10.3); Carbon Dioxide 25.6 mmol/L (21.6-31.8); Globulin 2.1 g/dL (1.6-3.3); Non-African American GFR(CKD) 12.5 (60.0-200.0); Potassium 5.1 mmol/L (3.5-5.5); Total Bilirubin 3.3 mg/dL (0.2-1.2); Total Protein 5.8 g/dL (6.2-8.2)
--- NOTE | 2020-03-27 10:37 | P.PN ---
Subjective Patient is seen in follow-up for acute kidney injury. Quite edematous. Urine output about 250 mL overnight despite IV Lasix. Denies chest pain or shortness of breath. No abdominal pain. Vital signs are stable. General: The patient appeared well nourished and normally developed. HEENT: Head exam is unremarkable. Neck is without jugular venous distension. LUNGS: Breath sounds decreased. HEART: Rate and Rhythm are regular. ABDOMEN: Soft, nontender. EXTREMITITES: 2+ edema. Objective - Vital Signs Vital signs: Vital Signs Temp 98.1 F 03/27/20 08:00 Pulse 89 03/27/20 08:00 Resp 20 03/27/20 08:00 BP 101/58 03/27/20 08:00 Pulse Ox 97 03/27/20 08:00 Intake & Output 03/26/20 03/27/20 03/27/20 18:59 06:59 18:59 Intake Total 650 350 Output Total 150 270 Balance 500 80 Intake: Oral 650 350 Output: Urine 150 270 Other: Voiding Method Indwelling Catheter Indwelling Catheter - Labs CBC & Chem 7: 03/27/20 05:29 03/27/20 05:29 Labs: Abnormal Lab Results - Last 24 Hours (Table) 03/26/20 03/26/20 03/26/20 Range/Units 06:27 11: 16:17 RBC (3.80-5.40) m/uL Hgb (11.4-16.0) gm/dL Hct (34.0-46.0) % RDW (11.5-15.5) % Plt Count (150-450) k/uL PT (9.9-11.9) sec INR (0.90-1.11) Sodium 128 L (135-145) mmol/L Chloride 94 L (96-109) mmol/L Carbon Dioxide 21.0 L (21.6-31.8) mmol/L Anion Gap 13.00 H (4.00-12.00) mmol/L BUN 79.0 H (9.0-27.0) mg/dL Creatinine 4.0 H (0.6-1.5) mg/dL Est GFR (CKD-EPI)AfAm 14.5 L (60.0-200.0) Est GFR (CKD-EPI)NonAf 12.5 L (60.0-200.0) BUN/Creatinine Ratio (12.00-20.00) Ratio Glucose 134 H (70-110) mg/dL POC Glucose (mg/dL) 183 H 202 H (75-99) mg/dL Total Bilirubin 3.2 H (0.2-1.2) mg/dL AST 55 H (13-35) U/L Alkaline Phosphatase 149 H (41-126) U/L Ammonia (<30) umol/L Total Protein (6.2-8.2) g/dL Albumin (3.80-4.90) g/dL 03/26/20 03/27/20 03/27/20 Range/Units 19:48 05:29 05:29 RBC 2.36 L (3.80-5.40) m/uL Hgb 7.2 L (11.4-16.0) gm/dL Hct 22.2 L (34.0-46.0) % RDW 24.6 H (11.5-15.5) % Plt Count 41 L (150-450) k/uL PT 16.9 H (9.9-11.9) sec INR 1.62 H (0.90-1.11) Sodium (135-145) mmol/L Chloride (96-109) mmol/L Carbon Dioxide (21.6-31.8) mmol/L Anion Gap (4.00-12.00) mmol/L BUN (9.0-27.0) mg/dL Creatinine (0.6-1.5) mg/dL Est GFR (CKD-EPI)AfAm (60.0-200.0) Est GFR (CKD-EPI)NonAf (60.0-200.0) BUN/Creatinine Ratio (12.00-20.00) Ratio Glucose (70-110) mg/dL POC Glucose (mg/dL) 199 H (75-99) mg/dL Total Bilirubin (0.2-1.2) mg/dL AST (13-35) U/L Alkaline Phosphatase (41-126) U/L Ammonia (<30) umol/L Total Protein (6.2-8.2) g/dL Albumin (3.80-4.90) g/dL 03/27/20 03/27/20 03/27/20 Range/Units 05:29 05:29 07:27 RBC (3.80-5.40) m/uL Hgb (11.4-16.0) gm/dL Hct (34.0-46.0) % RDW (11.5-15.5) % Plt Count (150-450) k/uL PT (9.9-11.9) sec INR (0.90-1.11) Sodium 132 L (135-145) mmol/L Chloride (96-109) mmol/L Carbon Dioxide (21.6-31.8) mmol/L Anion Gap (4.00-12.00) mmol/L BUN 87.0 H (9.0-27.0) mg/dL Creatinine 4.0 H (0.6-1.5) mg/dL Est GFR (CKD-EPI)AfAm 14.5 L (60.0-200.0) Est GFR (CKD-EPI)NonAf 12.5 L (60.0-200.0) BUN/Creatinine Ratio 21.75 H (12.00-20.00) Ratio Glucose 163 H (70-110) mg/dL POC Glucose (mg/dL) 159 H (75-99) mg/dL Total Bilirubin 3.3 H (0.2-1.2) mg/dL AST 52 H (13-35) U/L Alkaline Phosphatase 152 H (41-126) U/L Ammonia 105 H (<30) umol/L Total Protein 5.8 L (6.2-8.2) g/dL Albumin 3.70 L (3.80-4.90) g/dL Assessment and Plan Plan: Assessment: 1. Acute kidney injury secondary to ATN secondary to hepatorenal syndrome. Creatinine stable at 4.0 today. 2. Hypervolemic hyponatremia. 3. Hyperkalemia secondary to acute kidney injury, metabolic acidosis and Aldactone. 4. Decompensated liver cirrhosis. 5. Hypotension secondary to cirrhosis maintained on midodrine. 6. Volume overload. 7. Hepatic encephalopathy. Lactulose will be added today. Plan: Maintain Lasix 80 mg twice daily. Hold off on spironolactone due to hyperkalemia. Encouraged oral intake, particularly protein. Low-salt diet and 1.5 L fluid restriction. Patient refusing any form of renal replacement therapy. Hospice being considered. Awaiting son's arrival. Case discussed with the primary team.
[2020-03-27 11:44] LABS: Glucose,Whole Blood 193 mg/dL (75-99)
--- NOTE | 2020-03-27 12:14 | P.PN ---
Subjective Progress Note Date: 03/27/20 Principal diagnosis: Decompensated Becker cirrhosis, ascites, encephalopathy This is a 49-year-old female with a history of decompensated cirrhosis from Becker, ascites who requires frequent paracentesis approximately every 10-14 days, and encephalopathy. Patient has been seen by nephrology for worsening kidney function. The patient has little support at home, has been noncompliant in the past with medication and follow-up. The patient has a poor prognosis and medicine as well as nephrology have discussed with patient considering possible hospice and comfort care. Dr. Zapata is trying to arrange patient's son to be able to visit the patient who is active in the [employer] and station in [place]. Today she states she is overall feeling well, she denies any abdominal pain, nausea, or vomiting. Denies any shortness of breath. Nephrology continues to follow patient for acute kidney injury. She is being maintained on Lasix 80 mg twice daily. Continued on midodrine, octreotide and lactulose. The patient is refusing any form of renal placement therapy at this time. The patient is alert and oriented 3. Objective - Vital Signs Vital signs: Vital Signs Temp 98.1 F 03/27/20 08:00 Pulse 89 03/27/20 08:00 Resp 20 03/27/20 08:00 BP 101/58 03/27/20 08:00 Pulse Ox 97 03/27/20 08:00 Intake & Output 03/26/20 03/27/20 03/27/20 18:59 06:59 18:59 Intake Total 650 350 Output Total 150 270 Balance 500 80 Intake: Oral 650 350 Output: Urine 150 270 Other: Voiding Method Indwelling Catheter Indwelling Catheter Indwelling Catheter - Exam General appearance: The patient is alert, oriented, in no acute distress. HET: Head is normocephalic and atraumatic. Conjunctiva pink. Sclera anicteric. Neck: Supple without lymphadenopathy. Abdomen: Soft, obese, nontender, mildy distended. No guarding or rigidity. Extremities: Normal skin color and turgor. Bilateral lower extremity +2 pitting edema Neurological: No focal deficits. Alert and oriented 3. - Labs CBC & Chem 7: 03/27/20 05:29 03/27/20 05:29 Labs: Abnormal Lab Results - Last 24 Hours (Table) 03/26/20 03/26/2003/26/20 Range/Units 06:27 16:17 19:48 RBC (3.80-5.40) m/uL Hgb (11.4-16.0) gm/dL Hct (34.0-46.0) % RDW (11.5-15.5) % Plt Count (150-450) k/uL PT (9.9-11.9) sec INR (0.90-1.11) Sodium 128 L (135-145) mmol/L Chloride 94 L (96-109) mmol/L Carbon Dioxide 21.0 L (21.6-31.8) mmol/L Anion Gap 13.00 H (4.00-12.00) mmol/L BUN 79.0 H (9.0-27.0) mg/dL Creatinine 4.0 H (0.6-1.5) mg/dL Est GFR (CKD-EPI)AfAm 14.5 L (60.0-200.0) Est GFR (CKD-EPI)NonAf 12.5 L (60.0-200.0) BUN/Creatinine Ratio (12.00-20.00) Ratio Glucose 134 H (70-110) mg/dL POC Glucose (mg/dL) 202 H 199 H (75-99) mg/dL Total Bilirubin 3.2 H (0.2-1.2) mg/dL AST 55 H (13-35) U/L Alkaline Phosphatase 149 H (41-126) U/L Ammonia (<30) umol/L Total Protein (6.2-8.2) g/dL Albumin (3.80-4.90) g/dL 03/27/20 03/27/20 03/27/20 Range/Units 05:29 05:29 05:29 RBC 2.36 L (3.80-5.40) m/uL Hgb 7.2 L (11.4-16.0) gm/dL Hct 22.2 L (34.0-46.0) % RDW 24.6 H (11.5-15.5) % Plt Count 41 L (150-450) k/uL PT 16.9 H (9.9-11.9) sec INR 1.62 H (0.90-1.11) Sodium 132 L (135-145) mmol/L Chloride (96-109) mmol/L Carbon Dioxide (21.6-31.8) mmol/L Anion Gap (4.00-12.00) mmol/L BUN 87.0 H (9.0-27.0) mg/dL Creatinine 4.0 H (0.6-1.5) mg/dL Est GFR (CKD-EPI)AfAm 14.5 L (60.0-200.0) Est GFR (CKD-EPI)NonAf 12.5 L (60.0-200.0) BUN/Creatinine Ratio 21.75 H (12.00-20.00) Ratio Glucose 163 H (70-110) mg/dL POC Glucose (mg/dL) (75-99) mg/dL Total Bilirubin 3.3 H (0.2-1.2) mg/dL AST 52 H (13-35) U/L Alkaline Phosphatase 152 H (41-126) U/L Ammonia (<30) umol/L Total Protein 5.8 L (6.2-8.2) g/dL Albumin 3.70 L (3.80-4.90) g/dL 03/27/20 03/27/20 03/27/20 Range/Units 05:29 07:27 11:35 RBC (3.80-5.40) m/uL Hgb (11.4-16.0) gm/dL Hct (34.0-46.0) % RDW (11.5-15.5) % Plt Count (150-450) k/uL PT (9.9-11.9) sec INR (0.90-1.11) Sodium (135-145) mmol/L Chloride (96-109) mmol/L Carbon Dioxide (21.6-31.8) mmol/L Anion Gap (4.00-12.00) mmol/L BUN (9.0-27.0) mg/dL Creatinine (0.6-1.5) mg/dL Est GFR (CKD-EPI)AfAm (60.0-200.0) Est GFR (CKD-EPI)NonAf (60.0-200.0) BUN/Creatinine Ratio (12.00-20.00) Ratio Glucose (70-110) mg/dL POC Glucose (mg/dL) 159 H 193 H (75-99) mg/dL Total Bilirubin (0.2-1.2) mg/dL AST (13-35) U/L Alkaline Phosphatase (41-126) U/L Ammonia 105 H (<30) umol/L Total Protein (6.2-8.2) g/dL Albumin (3.80-4.90) g/dL Assessment and Plan (1) Cirrhosis Narrative/Plan: Narrative/Plan: 49-year-old female with multiple complex medical problems including decompensated Becker cirrhosis requiring frequent large volume paracentesis and encephalopathy who presented due to laboratory abnormalities. Patient found to have elevation in creatinine and electrolyte abnormalities on presentation. Currently she is been seen by the nephrology service. She has a known history of decompensated cirrhosis and has been treated with diuretic therapy and high volume paracentesis in the past as well as lactulose for encephalopathy. She was previously referred to [facility] but has failed to follow up due to social issues. Current Visit: No Status: Acute Code(s): K74.60 - UNSPECIFIED CIRRHOSIS OF LIVER SNOMED Code(s): 08017017 (2) Ascites Current Visit: No Status: Acute Code(s): R18.8 - OTHER ASCITES SNOMED Code(s): 650739322 (3) Hyperkalemia Current Visit: Yes Status: Acute Code(s): E87.5 - HYPERKALEMIA SNOMED Code(s): 39740740 (4) Abdominal distention Current Visit: No Status: Acute Code(s): R14.0 - ABDOMINAL DISTENSION (GASEOUS) SNOMED Code(s): 63592564 (5) Hyperbilirubinemia Current Visit: No Status: Acute Code(s): E80.6 - OTHER DISORDERS OF BILIRUBIN METABOLISM SNOMED Code(s): 41563931 Plan: Supportive care Low sodium restricted diet with 0.5 L fluid restriction Continue lactulose therapy Continue octreotide and midodrine for suspected hepatorenal syndrome Xifaxin 550 mg BID added Appreciate recommendations from nephrology service Extensive discussion was had by Dr. Read with the primary team, as well as the patient about overall poor prognosis, the patient would not be a candidate for liver transplant given her poor functional status as well as social issues, the patient did make herself DO NOT RESUSCITATE and the primary care team has discussed options with the patient regarding comfort care which patient still has not made a decision at this point however considering hospice care after she sees her son. Thank you for allowing us to participate in the care of the patient we will continue to follow Dr. Kelsy Garrison I agree with the dictator's note ,documented as a scribe by Niko Man.
[2020-03-27] MEDS: RIFAXIMIN 550 MG TABLET PO SCH ×2 (12:41→19:24)
--- NOTE | 2020-03-27 15:45 | P.PN ---
Subjective Progress Note Date: 03/27/20 (delayed charting seen at 1100) Principal diagnosis: renal failure Patient is a 49-year-old female with a history of nonalcoholic steatohepatitis resulting in liver cirrhosis requiring frequent outpatient paracentesis, diabetes mellitus type 2, hypertension, and dyslipidemia who presented to the ER from [facility] due to hyperkalemia and acute renal failure. She underwent outpati ent paracentesis on 03/23 with the removal of 8.5 L of fluid. On arrival to the ER her vital signs were found to be within normal limits. Initial laboratory analysis shows hemoglobin 8.5, platelets 87, sodium 124, potassium 5.8, BUN 70, creatinine 3.51, INR 1.7, AST 65, alkaline phosphatase 194, ammonia 63. Arrangements are made for admission for hepatorenal syndrome. Her diuretics were stopped. She was started on albumin, midodrine, and octreotide. Nephrology was consulted. She was determined to have a poor overall prognosis due to acute on chronic hepatorenal syndrome with endstage liver disease. She does not want hemodialysis. Has been refusing lactulose and ammonia elevated on with some confusion. Patient seen and examined at bedside. Feeling okay today. Slight confused per nursing. Has been refusing lactulose and ammonia elevated- d/w patient and she will take her doses for today and then we will decrease the dose. General: Chronically ill-appearing, no distress, appears at stated age, temporal and buccal wasting Derm: warm, dry Head: atraumatic, normocephalic, symmetric Eyes: EOMI, no lid lag, anicteric sclera Mouth: no lip lesion, mucus membranes moist Cardiovascular: S1S2 reg, no murmur, positive posterior tibial pulse bilateral, Lungs: Decreased breath sounds bilateral, no rhonchi, no rales , no accessory muscle use Abdominal: + distended, soft, nontender to palpation, no guarding, no appreciable organomegaly Ext: no gross muscle atrophy, 4+ edema bilateral lower extremities, no contractures Neuro: CN II-XI grossly intact, no focal neuro deficits Psych: Alert, oriented, admits to thinking her son was in the room today Acute kidney injury, hyponatremia with CKD -hepatorenal syndrome -Nephrology recs appreciated: Lasix IV 80 mg twice daily -Continue Midrin, octreotide -Albumin completed -Avoid additional nephrotoxic agents -Follow BMP closely - does not want HD End-stage cirrhosis requiring recurrent paracentesis -DNR. Plans are for transition to hospice on dscharge - continue lactulose -Continue to monitor Diabetes mellitus type 2, insulin controlled -Sliding-scale insulin -Follow blood sugars -Hemoglobin A1c 4.7 on 03/07/20 Anemia, thrombocytopenia -Follow CBC - suspect due to advanced liver disease Bipolar disorder -Continue current medications Stage II pressure ulcer to coccyx - POA - Off load - wound care hyperkalemia, resolved Jan knox is getting her son Jose home. Case # [id number]. Plan will be to continue with current medical care to try to be as healthy as possible for one her son arrives. She then plans on transitioning to hospice. Ideally she would like to be in a place with hospice where she could have visitors. However she would be willing to go back to [facility] with hospice. Her Son, Mother Maryellen, and Antoni will all be allowed to visit one at a time. This has been approved. Updated Antoni over the phone, DVT prophylaxis: SCDs Discussed with: Patient, nursing, Dr. Read Anticipated discharge: 4-[address]: undetermined A total of 35 minutes was spent on the care of this complex patient more than 50% of the time was spent in counseling and care coordination. Objective - Vital Signs Vital signs: Vital Signs Temp 97.8 F 03/27/20 14:00 Pulse 89 03/27/20 14:00 Resp 20 03/27/20 14:00 BP 100/56 03/27/20 14:00 Pulse Ox 97 03/27/20 14:00 Intake & Output 03/26/20 03/27/20 03/27/20 18:59 06:59 18:59 Intake Total 650 350 Output Total 150 270 Balance 500 80 Intake: Oral 650 350 Output: Urine 150 270 Other: Voiding Method Indwelling Catheter Indwelling Catheter Indwelling Catheter - Labs CBC & Chem 7: 03/27/20 05:29 03/27/20 05:29 Labs: Abnormal Lab Results - Last 24 Hours (Table) 03/26/20 03/26/20 03/27/20 Range/Units 16:17 19:48 05:29 RBC 2.36 L (3.80-5.40) m/uL Hgb 7.2 L (11.4-16.0) gm/dL Hct 22.2 L (34.0-46.0) % RDW 24.6 H (11.5-15.5) % Plt Count 41 L (150-450) k/uL PT (9.9-11.9) sec INR (0.90-1.11) Sodium (135-145) mmol/L BUN (9.0-27.0) mg/dL Creatinine (0.6-1.5) mg/dL Est GFR (CKD-EPI)AfAm (60.0-200.0) Est GFR (CKD-EPI)NonAf (60.0-200.0) BUN/Creatinine Ratio (12.00-20.00) Ratio Glucose (70-110) mg/dL POC Glucose (mg/dL) 202 H 199 H (75-99) mg/dL Total Bilirubin (0.2-1.2) mg/dL AST (13-35) U/L Alkaline Phosphatase (41-126) U/L Ammonia (<30) umol/L Total Protein (6.2-8.2) g/dL Albumin (3.80-4.90) g/dL 03/27/20 03/27/20 03/27/20 Range/Units 05:29 05:29 05:29 RBC (3.80-5.40) m/uL Hgb (11.4-16.0) gm/dL Hct (34.0-46.0) % RDW (11.5-15.5) % Plt Count (150-450) k/uL PT 16.9 H (9.9-11.9) sec INR 1.62 H (0.90-1.11) Sodium 132 L (135-145) mmol/L BUN 87.0 H (9.0-27.0) mg/dL Creatinine 4.0 H (0.6-1.5) mg/dL Est GFR (CKD-EPI)AfAm 14.5 L (60.0-200.0) Est GFR (CKD-EPI)NonAf 12.5 L (60.0-200.0) BUN/Creatinine Ratio 21.75 H (12.00-20.00) Ratio Glucose 163 H (70-110) mg/dL POC Glucose (mg/dL) (75-99) mg/dL Total Bilirubin 3.3 H (0.2-1.2) mg/dL AST 52 H (13-35) U/L Alkaline Phosphatase 152 H (41-126) U/L Ammonia 105 H (<30) umol/L Total Protein 5.8 L (6.2-8.2) g/dL Albumin 3.70 L (3.80-4.90) g/dL 03/27/20 03/27/20 Range/Units 07:27 11:35 RBC (3.80-5.40) m/uL Hgb (11.4-16.0) gm/dL Hct (34.0-46.0) % RDW (11.5-15.5) % Plt Count (150-450) k/uL PT (9.9-11.9) sec INR (0.90-1.11) Sodium (135-145) mmol/L BUN (9.0-27.0) mg/dL Creatinine (0.6-1.5) mg/dL Est GFR (CKD-EPI)AfAm (60.0-200.0) Est GFR (CKD-EPI)NonAf (60.0-200.0) BUN/Creatinine Ratio (12.00-20.00) Ratio Glucose (70-110) mg/dL POC Glucose (mg/dL) 159 H 193 H (75-99) mg/dL Total Bilirubin (0.2-1.2) mg/dL AST (13-35) U/L Alkaline Phosphatase (41-126) U/L Ammonia (<30) umol/L Total Protein (6.2-8.2) g/dL Albumin (3.80-4.90) g/dL
[2020-03-27 16:44] LABS: Glucose,Whole Blood 208 mg/dL (75-99)
[2020-03-27] MEDS: FOLIC ACID 1 MG TAB PO SCH (17:39)
[2020-03-27] MEDS: ONDANSETRON 4 MG/2 ML VIAL IVP PRN (18:02)
[2020-03-27 19:52] LABS: Glucose,Whole Blood 203 mg/dL (75-99)
[2020-03-27] MEDS: traZODone HCL 100 MG TAB PO SCH (21:58)
[2020-03-28] MEDS: OCTREOTIDE 100 MCG/ML INJ SQ SCH ×4 (00:12→23:53)
[2020-03-28] MEDS: ONDANSETRON 4 MG/2 ML VIAL IVP PRN (00:43)
[2020-03-28 07:11] LABS: Glucose,Whole Blood 200 mg/dL (75-99)
[2020-03-28 07:25] LABS: Anisocytosis Marked; HCT 22.4 % (34.0-46.0); Hypochromasia Marked; MCH 29.4 pg (25.0-35.0); MCHC 30.1 g/dL (31.0-37.0); MCV 97.9 fL (80.0-100.0); Macrocytosis Moderate; Mean Platelet Volume 8.4; Microcytosis Slight; RBC 2.29 m/uL (3.80-5.40); RDW 24.8 % (11.5-15.5); WBC 5.7 k/uL (3.8-10.6)
[2020-03-28 07:28] LABS: HGB 6.7 gm/dL (11.4-16.0); Platelet Count 52 k/uL (150-450)
[2020-03-28] MEDS: LACTULOSE 20 GM/30 ML CUP PO SCH ×2 (07:56→17:35)
[2020-03-28] MEDS: FUROSEMIDE 10 MG/ML 10 ML VIAL IV SCH ×2 (07:57→21:32)
[2020-03-28] MEDS: INSULIN ASPART (NovoLOG) 100 UNIT/ML VIAL SQ SCH ×4 (07:57→21:32)
[2020-03-28] MEDS: ENOXAPARIN 30 MG/0.3 ML SYRINGE SQ SCH (07:58)
[2020-03-28] MEDS: RIFAXIMIN 550 MG TABLET PO SCH ×2 (07:58→21:32)
[2020-03-28] MEDS: PANTOPRAZOLE 40 MG TABLET PO SCH ×2 (07:58→17:37)
[2020-03-28] MEDS: SERTRALINE 100 MG TAB PO SCH (07:58)
[2020-03-28] MEDS: lamoTRIgine 25 MG TAB PO SCH ×2 (07:58→17:37)
[2020-03-28] MEDS: MIDODRINE 5 MG TAB PO SCH ×3 (07:58→17:36)
[2020-03-28 10:49] LABS: INR 1.65 (0.90-1.11); Prothrombin Time 17.2 sec (9.9-11.9)
[2020-03-28 11:24] LABS: Albumin 3.2 g/dL (3.80-4.90); Albumin/Globulin Ratio 1.52 (1.60-3.17); Anion Gap 10.8 mmol/L (4.00-12.00); BUN/Creat Ratio 23.85 Ratio (12.00-20.00); Calcium 8.4 mg/dL (8.7-10.3); Carbon Dioxide 23.2 mmol/L (21.6-31.8); Globulin 2.1 g/dL (1.6-3.3); Non-African American GFR(CKD) 12.9 (60.0-200.0); Potassium 4.7 mmol/L (3.5-5.5); Total Bilirubin 3.1 mg/dL (0.2-1.2); Total Protein 5.3 g/dL (6.2-8.2)
--- NOTE | 2020-03-28 11:55 | P.PN ---
Subjective Patient is seen in follow-up for acute kidney injury. Quite edematous. Urine output remains low despite IV Lasix. Creatinine stable. Awaiting son's arrival. Vital signs are stable. General: The patient appeared well nourished and normally developed. HEENT: Head exam is unremarkable. Neck is without jugular venous distension. LUNGS: Breath sounds decreased. HEART: Rate and Rhythm are regular. ABDOMEN: Soft, nontender. EXTREMITITES: 2+ edema. Objective - Vital Signs Vital signs: Vital Signs Temp 97.9 F 03/28/20 05:25 Pulse 96 03/28/20 05:25 Resp 18 03/28/20 05:25 BP 113/61 03/28/20 05:25 Pulse Ox 94 L 03/28/20 05:25 Intake & Output 03/27/20 03/28/20 03/28/20 18:59 06:59 18:59 Output Total 200 100 Balance -200 -100 Output: Urine 200 100 Other: Voiding Method Indwelling Catheter Indwelling Catheter Indwelling Catheter # Bowel Movements 2 - Labs CBC & Chem 7: 03/28/20 07:01 03/28/20 07:01 Labs: Abnormal Lab Results - Last 24 Hours (Table) 03/27/20 03/27/20 03/28/20 Range/Units 16:37 19:50 07:01 RBC 2.29 L (3.80-5.40) m/uL Hgb 6.7 L* (11.4-16.0) gm/dL Hct 22.4 L (34.0-46.0) % MCHC 30.1 L (31.0-37.0) g/dL RDW 24.8 H (11.5-15.5) % Plt Count 52 L (150-450) k/uL PT (9.9-11.9) sec INR (0.90-1.11) Sodium (135-145) mmol/L BUN (9.0-27.0) mg/dL Creatinine (0.6-1.5) mg/dL Est GFR (CKD-EPI)AfAm (60.0-200.0) Est GFR (CKD-EPI)NonAf (60.0-200.0) BUN/Creatinine Ratio (12.00-20.00) Ratio Glucose (70-110) mg/dL POC Glucose (mg/dL) 208 H 203 H (75-99) mg/dL Calcium (8.7-10.3) mg/dL Total Bilirubin (0.2-1.2) mg/dL AST (13-35) U/L Alkaline Phosphatase (41-126) U/L Ammonia (<30) umol/L Total Protein (6.2-8.2) g/dL Albumin (3.80-4.90) g/dL Albumin/Globulin Ratio (1.60-3.17) g/dL 03/28/20 03/28/20 03/28/20 Range/Units 07:01 07:01 07:01 RBC (3.80-5.40) m/uL Hgb (11.4-16.0) gm/dL Hct (34.0-46.0) % MCHC (31.0-37.0) g/dL RDW (11.5-15.5) % Plt Count (150-450) k/uL PT 17.2 H (9.9-11.9) sec INR 1.65 H (0.90-1.11) Sodium 132 L (135-145) mmol/L BUN 93.0 H (9.0-27.0) mg/dL Creatinine 3.9 H (0.6-1.5) mg/dL Est GFR (CKD-EPI)AfAm 15.0 L (60.0-200.0) Est GFR (CKD-EPI)NonAf 12.9 L (60.0-200.0) BUN/Creatinine Ratio 23.85 H (12.00-20.00) Ratio Glucose 190 H (70-110) mg/dL POC Glucose (mg/dL) (75-99) mg/dL Calcium 8.4 L (8.7-10.3) mg/dL Total Bilirubin 3.1 H (0.2-1.2) mg/dL AST 51 H (13-35) U/L Alkaline Phosphatase 154 H (41-126) U/L Ammonia 68 H (<30) umol/L Total Protein 5.3 L (6.2-8.2) g/dL Albumin 3.20 L (3.80-4.90) g/dL Albumin/Globulin Ratio 1.52 L (1.60-3.17) g/dL 03/28/20 Range/Units 07:09 RBC (3.80-5.40) m/uL Hgb (11.4-16.0) gm/dL Hct (34.0-46.0) % MCHC (31.0-37.0) g/dL RDW (11.5-15.5) % Plt Count (150-450) k/uL PT (9.9-11.9) sec INR (0.90-1.11) Sodium (135-145) mmol/L BUN (9.0-27.0) mg/dL Creatinine (0.6-1.5) mg/dL Est GFR (CKD-EPI)AfAm (60.0-200.0) Est GFR (CKD-EPI)NonAf (60.0-200.0) BUN/Creatinine Ratio (12.00-20.00) Ratio Glucose (70-110) mg/dL POC Glucose (mg/dL) 200 H (75-99) mg/dL Calcium (8.7-10.3) mg/dL Total Bilirubin (0.2-1.2) mg/dL AST (13-35) U/L Alkaline Phosphatase (41-126) U/L Ammonia (<30) umol/L Total Protein (6.2-8.2) g/dL Albumin (3.80-4.90) g/dL Albumin/Globulin Ratio (1.60-3.17) g/dL Assessment and Plan Plan: Assessment: 1. Acute kidney injury secondary to ATN secondary to hepatorenal syndrome. Creatinine stable at 3.9 today. 2. Hypervolemic hyponatremia. 3. Hyperkalemia secondary to acute kidney injury, metabolic acidosis and Aldactone. 4. Decompensated liver cirrhosis. 5. Hypotension secondary to cirrhosis maintained on midodrine. 6. Volume overload. 7. Hepatic encephalopathy. Mentation better today. Maintained on lactulose. 8. Acute blood loss anemia. Hemoglobin 6.7 today. Plan: Maintain Lasix 80 mg twice daily. Hold off on spironolactone due to hyperkalemia. Encouraged oral intake, particularly protein. Low-salt diet and 1.5 L fluid restriction. Patient refusing any form of renal replacement therapy. Hospice being considered. Awaiting son's arrival. Monitor hemoglobin and transfuse as needed.
[2020-03-28 11:56] LABS: Glucose,Whole Blood 283 mg/dL (75-99)
--- NOTE | 2020-03-28 14:43 | P.PN ---
Subjective Progress Note Date: 03/28/20 Principal diagnosis: Decompensated Becker cirrhosis, ascites, encephalopathy This is a 49-year-old female with a history of decompensated cirrhosis from Becker, ascites who requires frequent paracentesis approximately every 10-14 days, and encephalopathy. Patient has been seen by nephrology for worsening kidney function. The patient has little support at home, has been noncompliant in the past with medication and follow-up. The patient has a poor prognosis and medicine as well as nephrology have discussed with patient considering possible hospice and comfort care. Dr. Zapata is trying to arrange patient's son to be able to visit the patient who is active in the [employer] and station in [place]. Today she states she is feeling better. She denies any abdominal pain, nausea, or vomiting. Denies any shortness of breath. Nephrology continues to follow patient for acute kidney injury. She is being maintained on Lasix 80 mg twice daily. Continued on midodrine, octreotide and lactulose. The patient is refusing any form of renal placement therapy at this time. The patient is alert and oriented 3. She took her lactulose yesterday and this morning. She states she had 2 bowel movements yesterday and one today. Her ammonia level improved to 68 today. Her hemoglobin dropped to 6.7, however patient is refusing any blood products at this time. Patient is awaiting arrival of son, plan is outpatient hospice. Objective - Vital Signs Vital signs: Vital Signs Temp 97.9 F 03/28/20 05:25 Pulse 96 03/28/20 05:25 Resp 18 03/28/20 05:25 BP 113/61 03/28/20 05:25 Pulse Ox 94 L 03/28/20 05:25 Intake & Output 03/27/20 03/28/20 03/28/20 18:59 06:59 18:59 Output Total 200 100 Balance -200 -100 Weight 108.862 kg Output: Urine 200 100 Other: Voiding Method Indwelling Catheter Indwelling Catheter Indwelling Catheter # Bowel Movements 2 - Exam General appearance: The patient is alert, oriented, in no acute distress. HET: Head is normocephalic and atraumatic. Conjunctiva pink. Sclera anicteric. Neck: Supple without lymphadenopathy. Abdomen: Soft, obese, nontender, mildy distended. No guarding or rigidity. Extremities: Normal skin color and turgor. Bilateral lower extremity +2 pitting edema Neurological: No focal deficits. Alert and oriented 3. - Labs CBC & Chem 7: 03/28/20 07:01 03/28/20 07:01 Labs: Abnormal Lab Results - Last 24 Hours (Table) 03/27/20 03/27/20 03/28/20 Range/Units 16:37 19:50 07:01 RBC 2.29 L (3.80-5.40) m/uL Hgb 6.7 L* (11.4-16.0) gm/dL Hct 22.4 L (34.0-46.0) % MCHC 30.1 L (31.0-37.0) g/dL RDW 24.8 H (11.5-15.5) % Plt Count 52 L (150-450) k/uL PT (9.9-11.9) sec INR (0.90-1.11) Sodium (135-145) mmol/L BUN (9.0-27.0) mg/dL Creatinine (0.6-1.5) mg/dL Est GFR (CKD-EPI)AfAm (60.0-200.0) Est GFR (CKD-EPI)NonAf (60.0-200.0) BUN/Creatinine Ratio (12.00-20.00) Ratio Glucose (70-110) mg/dL POC Glucose (mg/dL) 208 H 203 H (75-99) mg/dL Calcium (8.7-10.3) mg/dL Total Bilirubin (0.2-1.2) mg/dL AST (13-35) U/L Alkaline Phosphatase (41-126) U/L Ammonia (<30) umol/L Total Protein (6.2-8.2) g/dL Albumin (3.80-4.90) g/dL Albumin/Globulin Ratio (1.60-3.17) g/dL 03/28/20 03/28/20 03/28/20 Range/Units 07:01 07:01 07:01 RBC (3.80-5.40) m/uL Hgb (11.4-16.0) gm/dL Hct (34.0-46.0) % MCHC (31.0-37.0) g/dL RDW (11.5-15.5) % Plt Count (150-450) k/uL PT 17.2 H (9.9-11.9) sec INR 1.65 H (0.90-1.11) Sodium 132 L (135-145) mmol/L BUN 93.0 H (9.0-27.0) mg/dL Creatinine 3.9 H (0.6-1.5) mg/dL Est GFR (CKD-EPI)AfAm 15.0 L (60.0-200.0) Est GFR (CKD-EPI)NonAf 12.9 L (60.0-200.0) BUN/Creatinine Ratio 23.85 H (12.00-20.00) Ratio Glucose 190 H (70-110) mg/dL POC Glucose (mg/dL) (75-99) mg/dL Calcium 8.4 L (8.7-10.3) mg/dL Total Bilirubin 3.1 H (0.2-1.2) mg/dL AST 51 H (13-35) U/L Alkaline Phosphatase 154 H (41-126) U/L Ammonia 68 H (<30) umol/L Total Protein 5.3 L (6.2-8.2) g/dL Albumin 3.20 L (3.80-4.90) g/dL Albumin/Globulin Ratio 1.52 L (1.60-3.17) g/dL 03/28/20 03/28/20 Range/Units 07:09 11:54 RBC (3.80-5.40) m/uL Hgb (11.4-16.0) gm/dL Hct (34.0-46.0) % MCHC (31.0-37.0) g/dL RDW (11.5-15.5) % Plt Count (150-450) k/uL PT (9.9-11.9) sec INR (0.90-1.11) Sodium (135-145) mmol/L BUN (9.0-27.0) mg/dL Creatinine (0.6-1.5) mg/dL Est GFR (CKD-EPI)AfAm (60.0-200.0) Est GFR (CKD-EPI)NonAf (60.0-200.0) BUN/Creatinine Ratio (12.00-20.00) Ratio Glucose (70-110) mg/dL POC Glucose (mg/dL) 200 H 283 H (75-99) mg/dL Calcium (8.7-10.3) mg/dL Total Bilirubin (0.2-1.2) mg/dL AST (13-35) U/L Alkaline Phosphatase (41-126) U/L Ammonia (<30) umol/L Total Protein (6.2-8.2) g/dL Albumin (3.80-4.90) g/dL Albumin/Globulin Ratio (1.60-3.17) g/dL Assessment and Plan (1) Cirrhosis Narrative/Plan: Narrative/Plan: 49-year-old female with multiple complex medical problems including decompensated Becker cirrhosis requiring frequent large volume paracentesis and encephalopathy who presented due to laboratory abnormalities. Patient found to have elevation in creatinine and electrolyte abnormalities on presentation. Currently she is been seen by the nephrology service. She has a known history of decompensated cirrhosis and has been treated with diuretic therapy and high volume paracentesis in the past as well as lactulose for encephalopathy. She was previously referred to [facility] but has failed to follow up due to social issues. Current Visit: No Status: Acute Code(s): K74.60 - UNSPECIFIED CIRRHOSIS OF LIVER SNOMED Code(s): 93278433 (2) Ascites Current Visit: No Status: Acute Code(s): R18.8 - OTHER ASCITES SNOMED Code(s): 533869649 (3) Hyperkalemia Current Visit: Yes Status: Acute Code(s): E87.5 - HYPERKALEMIA SNOMED Cod e(s): 72250080 (4) Abdominal distention Current Visit: No Status: Acute Code(s): R14.0 - ABDOMINAL DISTENSION (GASEOUS) SNOMED Code(s): 16965271 (5) Hyperbilirubinemia Current Visit: No Status: Acute Code(s): E80.6 - OTHER DISORDERS OF BILIRUBIN METABOLISM SNOMED Code(s): 76665822 Plan: Supportive care Low sodium restricted diet with 0.5 L fluid restriction Continue lactulose therapy Continue octreotide and midodrine for suspected hepatorenal syndrome Xifaxin 550 mg BID added Appreciate recommendations from nephrology service Recommend unit of PRBC for hemoglobin of 6.7, patient refusing at this time Extensive discussion was had by Dr. Read with the primary team, as well as the patient about overall poor prognosis, the patient would not be a candidate for liver transplant given her poor functional status as well as social issues, the patient did make herself DO NOT RESUSCITATE. Per case management's note, patient's son should be arriving in [place] Thursday afternoon. Plan is for patient to go home with hospice care. Thank you for allowing us to participate in the care of the patient we will continue to follow Dr. Kelsy Garrison I agree with the dictator's note ,documented as a scribe by Niko Man.
[2020-03-28 16:59] LABS: Glucose,Whole Blood 219 mg/dL (75-99)
[2020-03-28] MEDS: FOLIC ACID 1 MG TAB PO SCH (17:38)
--- NOTE | 2020-03-28 18:43 | P.PN ---
Subjective Progress Note Date: 03/28/20 (delayed charting seen at 0820) Principal diagnosis: renal failure Patient is a 49-year-old female with a history of nonalcoholic steatohepatitis resulting in liver cirrhosis requiring frequent outpatient paracentesis, diabetes mellitus type 2, hypertension, and dyslipidemia who presented to the ER from [facility] due to hyperkalemia and acute renal failure. She underwent outpati ent paracentesis on 03/23 with the removal of 8.5 L of fluid. On arrival to the ER her vital signs were found to be within normal limits. Initial laboratory analysis shows hemoglobin 8.5, platelets 87, sodium 124, potassium 5.8, BUN 70, creatinine 3.51, INR 1.7, AST 65, alkaline phosphatase 194, ammonia 63. Arrangements are made for admission for hepatorenal syndrome. Her diuretics were stopped. She was started on albumin, midodrine, and octreotide. Nephrology was consulted. She was determined to have a poor overall prognosis due to acute on chronic hepatorenal syndrome with endstage liver disease. She does not want hemodialysis. Has been refusing lactulose and ammonia elevated on with some confusion. This improved with encouraging patient to take lactulose and starting Xifaxan. Her renal function continued to decline. Patient with HgB 6.7 on 03/28 and did not want recheck of blood at noon, wanted to wait till AM. Patient seen and examined at bedside. Feeling okay today. Slight confused per nursing. Has been refusing lactulose and ammonia elevated- d/w patient and she will take her doses for today and then we will decrease the dose. General: Chronically ill-appearing, no distress, appears at stated age, temporal and buccal wasting Derm: warm, dry Head: atraumatic, normocephalic, symmetric Eyes: EOMI, no lid lag, anicteric sclera Mouth: no lip lesion, mucus membranes moist Cardiovascular: S1S2 reg, no murmur, positive posterior tibial pulse bilateral, Lungs: Decreased breath sounds bilateral, no rhonchi, no rales , no accessory muscle use Abdominal: + distended, soft, nontender to palpation, no guarding, no appreciable organomegaly Ext: no gross muscle atrophy, 4+ edema bilateral lower extremities, no contractures Neuro: CN II-XI grossly intact, no focal neuro deficits Psych: Alert, oriented, admits to thinking her son was in the room today Acute kidney injury, hyponatremia with CKD -Hepatorenal syndrome -Nephrology recs appreciated: Lasix IV 80 mg twice daily -Continue Midrin, octreotide -Albumin completed -Avoid additional nephrotoxic agents -Follow BMP closely - does not want HD End-stage cirrhosis requiring recurrent paracentesis -DNR. Plans are for transition to hospice on discharge - Son Jose will be her ThursdayMar 30 his plan lands at 2:45 PM. Continue medical care until then. Anticipate transition to hospice on 03/29. Will have hospice consult for 03/29. - Continue lactulose/ xifaxan - Lasix - Continue to monitor Anemia, thrombocytopenia - Worsening anemia. pt did not want recheck of blood at noon, wanted to wait till AM. - Follow CBC - Suspect due to advanced liver disease Diabetes mellitus type 2, insulin controlled - Sliding-scale insulin - Add levemir small dose - Follow blood sugars - Hemoglobin A1c 4.7 on 03/07/20 Bipolar disorder -Continue current medications Stage II pressure ulcer to coccyx - POA - Off load - wound care hyperkalemia, resolved [facility] is getting her son Jose home. Case # [id number]. Plan will be to continue with current medical care to try to be as healthy as possible for one her son arrives anticipate Thursday with plane landing at 2:45 PM. She then plans on transitioning to hospice. Ideally she would like to be in a place with hospice where she could have visitors. However she would be willing to go back to [facility] with hospice. Her Son, Mother Maryellen, and Antoni will all be allowed to visit one at a time. William can come today with worsening anemia. This has been approved by administration. DVT prophylaxis: SCDs Discussed with: Patient, nursing, Anticipated discharge: 3-[address]: undetermined A total of 35 minutes was spent on the care of this complex patient more than 50% of the time was spent in counseling and care coordination. Objective - Vital Signs Vital signs: Vital Signs Temp 98.1 F 03/28/20 14:00 Pulse 98 03/28/20 14:00 Resp 16 03/28/20 14:00 BP 107/58 03/28/20 14:00 Pulse Ox 93 L 03/28/20 14:00 Intake & Output 03/27/20 03/28/2003/28/20 18:59 06:59 18:59 Output Total 200 100 500 Balance -200 -100 -500 Weight 108.862 kg Output: Urine 200 100 500 Other: Voiding Method Indwelling Catheter Indwelling Catheter Indwelling Catheter # Voids 1 # Bowel Movements 2 1 - Labs CBC & Chem 7: 03/28/20 07:01 03/28/20 07:01 Labs: Abnormal Lab Results - Last 24 Hours (Table) 03/27/20 03/28/20 03/28/20 Range/Units 19:50 07:01 07:01 RBC 2.29 L (3.80-5.40) m/uL Hgb 6.7 L* (11.4-16.0) gm/dL Hct 22.4 L (34.0-46.0) % MCHC 30.1 L (31.0-37.0) g/dL RDW 24.8 H (11.5-15.5) % Plt Count 52 L (150-450) k/uL PT 17.2 H (9.9-11.9) sec INR 1.65 H (0.90-1.11) Sodium (135-145) mmol/L BUN (9.0-27.0) mg/dL Creatinine (0.6-1.5) mg/dL Est GFR (CKD-EPI)AfAm (60.0-200.0) Est GFR (CKD-EPI)NonAf (60.0-200.0) BUN/Creatinine Ratio (12.00-20.00) Ratio Glucose (70-110) mg/dL POC Glucose (mg/dL) 203 H (75-99) mg/dL Calcium (8.7-10.3) mg/dL Total Bilirubin (0.2-1.2) mg/dL AST (13-35) U/L Alkaline Phosphatase (41-126) U/L Ammonia (<30) umol/L Total Protein (6.2-8.2) g/dL Albumin (3.80-4.90) g/dL Albumin/Globulin Ratio (1.60-3.17) g/dL 03/28/20 03/28/20 03/28/20 Range/Units 07:01 07:01 07:09 RBC (3.80-5.40) m/uL Hgb (11.4-16.0) gm/dL Hct (34.0-46.0) % MCHC (31.0-37.0) g/dL RDW (11.5-15.5) % Plt Count (150-450) k/uL PT (9.9-11.9) sec INR (0.90-1.11) Sodium 132 L (135-145) mmol/L BUN 93.0 H (9.0-27.0) mg/dL Creatinine 3.9 H (0.6-1.5) mg/dL Est GFR (CKD-EPI)AfAm 15.0 L (60.0-200.0) Est GFR (CKD-EPI)NonAf 12.9 L (60.0-200.0) BUN/Creatinine Ratio 23.85 H (12.00-20.00) Ratio Glucose 190 H (70-110) mg/dL POC Glucose (mg/dL) 200 H (75-99) mg/dL Calcium 8.4 L (8.7-10.3) mg/dL Total Bilirubin 3.1 H (0.2-1.2) mg/dL AST 51 H (13-35) U/L Alkaline Phosphatase 154 H (41-126) U/L Ammonia 68 H (<30) umol/L Total Protein 5.3 L (6.2-8.2) g/dL Albumin 3.20 L (3.80-4.90) g/dL Albumin/Globulin Ratio 1.52 L (1.60-3.17) g/dL 03/28/20 03/28/20 Range/Units 11:54 16:58 RBC (3.80-5.40) m/uL Hgb (11.4-16.0) gm/dL Hct (34.0-46.0) % MCHC (31.0-37.0) g/dL RDW (11.5-15.5) % Plt Count (150-450) k/uL PT (9.9-11.9) sec INR (0.90-1.11) Sodium (135-145) mmol/L BUN (9.0-27.0) mg/dL Creatinine (0.6-1.5) mg/dL Est GFR (CKD-EPI)AfAm (60.0-200.0) Est GFR (CKD-EPI)NonAf (60.0-200.0) BUN/Creatinine Ratio (12.00-20.00) Ratio Glucose (70-110) mg/dL POC Glucose (mg/dL) 283 H 219 H (75-99) mg/dL Calcium (8.7-10.3) mg/dL Total Bilirubin (0.2-1.2) mg/dL AST (13-35) U/L Alkaline Phosphatase (41-126) U/L Ammonia (<30) umol/L Total Protein (6.2-8.2) g/dL Albumin (3.80-4.90) g/dL Albumin/Globulin Ratio (1.60-3.17) g/dL
[2020-03-28] MEDS: HYDROmorphone 0.5 MG/0.5 ML SYRINGE IVP PRN (19:49)
[2020-03-28 20:21] LABS: Glucose,Whole Blood 205 mg/dL (75-99)
[2020-03-28] MEDS: INSULIN DETEMIR (LEVEMIR) 100 UNIT/ML SYR SQ SCH (21:32)
[2020-03-28] MEDS: traZODone HCL 100 MG TAB PO SCH (21:32)
[2020-03-29 06:48] LABS: Glucose,Whole Blood 164 mg/dL (75-99)
[2020-03-29] MEDS: INSULIN ASPART (NovoLOG) 100 UNIT/ML VIAL SQ SCH ×4 (07:15→20:53)
[2020-03-29] MEDS: MIDODRINE 5 MG TAB PO SCH ×3 (07:17→17:08)
[2020-03-29] MEDS: OCTREOTIDE 100 MCG/ML INJ SQ SCH ×2 (07:17→17:03)
[2020-03-29] MEDS: lamoTRIgine 25 MG TAB PO SCH ×2 (07:18→17:39)
[2020-03-29] MEDS: PANTOPRAZOLE 40 MG TABLET PO SCH ×2 (07:19→17:07)
[2020-03-29] MEDS: SERTRALINE 100 MG TAB PO SCH (07:19)
[2020-03-29] MEDS: LACTULOSE 20 GM/30 ML CUP PO SCH ×2 (07:31→17:05)
[2020-03-29 07:35] LABS: Anisocytosis Marked; HCT 21.7 % (34.0-46.0); Hypochromasia Moderate; MCH 30.2 pg (25.0-35.0); MCHC 31.4 g/dL (31.0-37.0); MCV 96.2 fL (80.0-100.0); Macrocytosis Moderate; Mean Platelet Volume 7.7; Microcytosis Slight; RBC 2.26 m/uL (3.80-5.40); RDW 24.4 % (11.5-15.5); WBC 5.6 k/uL (3.8-10.6)
[2020-03-29 07:43] LABS: Platelet Count 49 k/uL (150-450)
[2020-03-29] MEDS: RIFAXIMIN 550 MG TABLET PO SCH ×2 (08:58→22:16)
[2020-03-29] MEDS: FUROSEMIDE 10 MG/ML 10 ML VIAL IV SCH ×2 (08:59→22:14)
[2020-03-29] MEDS: ENOXAPARIN 30 MG/0.3 ML SYRINGE SQ SCH (08:59)
[2020-03-29] MEDS: HYDROmorphone 0.5 MG/0.5 ML SYRINGE IVP PRN ×2 (08:59→20:52)
[2020-03-29 10:58] LABS: INR 1.56 (0.90-1.11); Prothrombin Time 16.3 sec (9.9-11.9)
[2020-03-29 11:21] LABS: Glucose,Whole Blood 196 mg/dL (75-99)
[2020-03-29 11:46] LABS: Albumin 3.2 g/dL (3.80-4.90); Albumin/Globulin Ratio 1.39 (1.60-3.17); BUN/Creat Ratio 24.62 Ratio (12.00-20.00); Calcium 8.4 mg/dL (8.7-10.3); Globulin 2.3 g/dL (1.6-3.3); Non-African American GFR(CKD) 12.9 (60.0-200.0); Potassium 4.7 mmol/L (3.5-5.5); Total Bilirubin 3.2 mg/dL (0.3-1.2); Total Protein 5.5 g/dL (6.2-8.2)
[2020-03-29 15:05] LABS: HGB 6.8 gm/dL (11.4-16.0)
--- NOTE | 2020-03-29 15:06 | P.PN ---
Subjective Patient is seen in follow-up for acute kidney injury. Renal function stable. No changes overnight. Awaiting son's arrival on Thursday. Mother present at bedside. Vital signs are stable. General: The patient appeared well nourished and normally developed. HEENT: Head exam is unremarkable. Neck is without jugular venous distension. LUNGS: Breath sounds decreased. HEART: Rate and Rhythm are regular. ABDOMEN: Soft, nontender. EXTREMITITES: 2+ edema. Objective - Vital Signs Vital signs: Vital Signs Temp 97.6 F 03/29/20 13:47 Pulse 92 03/29/20 13:47 Resp 17 03/29/20 13:47 BP 107/58 03/29/20 13:47 Pulse Ox 94 L 03/29/20 13:47 Intake & Output 03/28/20 03/29/20 03/29/20 18:59 06:59 18:59 Intake Total 100 Output Total 500 300 250 Balance -400 -300 -250 Weight 108.862 kg Intake: Other 100 Output: Urine 500 300 250 Uretheral (Romero) 300 250 Other: Voiding Method Indwelling Catheter Indwelling Catheter # Voids 1 # Bowel Movements 1 - Labs CBC & Chem 7: 03/29/20 06:40 03/29/20 06:40 Labs: Abnormal Lab Results - Last 24 Hours (Table) 03/28/20 03/28/20 03/29/20 Range/Units 16:58 20:19 06:40 RBC 2.26 L (3.80-5.40) m/uL Hgb 6.8 L* (11.4-16.0) gm/dL Hct 21.7 L (34.0-46.0) % RDW 24.4 H (11.5-15.5) % Plt Count 49 L (150-450) k/uL PT (9.9-11.9) sec INR (0.90-1.11) Sodium (135-145) mmol/L BUN (9.0-27.0) mg/dL Creatinine (0.6-1.5) mg/dL Est GFR (CKD-EPI)AfAm (60.0-200.0) Est GFR (CKD-EPI)NonAf (60.0-200.0) BUN/Creatinine Ratio (12.00-20.00) Ratio Glucose (70-110) mg/dL POC Glucose (mg/dL) 219 H 205 H (75-99) mg/dL Calcium (8.7-10.3) mg/dL Total Bilirubin (0.3-1.2) mg/dL AST (13-35) U/L Alkaline Phosphatase (41-126) U/L Ammonia (<30) umol/L Total Protein (6.2-8.2) g/dL Albumin (3.80-4.90) g/dL Albumin/Globulin Ratio (1.60-3.17) g/dL Crossmatch 03/29/20 03/29/20 03/29/20 Range/Units 06:40 06:40 06:40 RBC (3.80-5.40) m/uL Hgb (11.4-16.0) gm/dL Hct (34.0-46.0) % RDW (11.5-15.5) % Plt Count (150-450) k/uL PT 16.3 H (9.9-11.9) sec INR 1.56 H (0.90-1.11) Sodium 133 L (135-145) mmol/L BUN 96.0 H (9.0-27.0) mg/dL Creatinine 3.9 H (0.6-1.5) mg/dL Est GFR (CKD-EPI)AfAm 15.0 L (60.0-200.0) Est GFR (CKD-EPI)NonAf 12.9 L (60.0-200.0) BUN/Creatinine Ratio 24.62 H (12.00-20.00) Ratio Glucose 155 H (70-110) mg/dL POC Glucose (mg/dL) (75-99) mg/dL Calcium 8.4 L (8.7-10.3) mg/dL Total Bilirubin 3.2 H (0.3-1.2) mg/dL AST 56 H (13-35) U/L Alkaline Phosphatase 168 H (41-126) U/L Ammonia 77 H (<30) umol/L Total Protein 5.5 L (6.2-8.2) g/dL Albumin 3.20 L (3.80-4.90) g/dL Albumin/Globulin Ratio 1.39 L (1.60-3.17) g/dL Crossmatch 03/29/20 03/29/20 03/29/20 Range/Units 06:47 11:19 13:02 RBC (3.80-5.40) m/uL Hgb (11.4-16.0) gm/dL Hct (34.0-46.0) % RDW (11.5-15.5) % Plt Count (150-450) k/uL PT (9.9-11.9) sec INR (0.90-1.11) Sodium (135-145) mmol/L BUN (9.0-27.0) mg/dL Creatinine (0.6-1.5) mg/dL Est GFR (CKD-EPI)AfAm (60.0-200.0) Est GFR (CKD-EPI)NonAf (60.0-200.0) BUN/Creatinine Ratio (12.00-20.00) Ratio Glucose (70-110) mg/dL POC Glucose (mg/dL) 164 H 196 H (75-99) mg/dL Calcium (8.7-10.3) mg/dL Total Bilirubin (0.3-1.2) mg/dL AST (13-35) U/L Alkaline Phosphatase (41-126) U/L Ammonia (<30) umol/L Total Protein (6.2-8.2) g/dL Albumin (3.80-4.90) g/dL Albumin/Globulin Ratio (1.60-3.17) g/dL Crossmatch See Detail Assessment and Plan Plan: Assessment: 1. Acute kidney injury secondary to ATN secondary to hepatorenal syndrome. Creatinine stable at 3.9 today. 2. Hypervolemic hyponatremia. 3. Hyperkalemia secondary to acute kidney injury, metabolic acidosis and Aldactone. 4. Decompensated liver cirrhosis. 5. Hypotension secondary to cirrhosis maintained on midodrine. 6. Volume overload. 7. Hepatic encephalopathy. Mentation better today. Maintained on lactulose. 8. Acute blood loss anemia. Hemoglobin 6.8 today. Plan: Maintain Lasix 80 mg twice daily. Hold off on spironolactone due to hyperkalemia. Encouraged oral intake, particularly protein. Low-salt diet and 1.5 L fluid restriction. Patient refusing any form of renal replacement therapy. Hospice being considered. Awaiting son's arrival. Monitor hemoglobin and transfuse as needed. No changes from nephrology standpoint.
--- NOTE | 2020-03-29 15:18 | P.PN ---
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 She underwent outpatient paracentesis on 03/23 with the removal of 8.5 L of fluid. On arrival to the ER her vital signs were found to be within normal limits. Initial laboratory analysis shows hemoglobin 8.5, platelets 87, sodium 124, potassium 5.8, BUN 70, creatinine 3.51, INR 1.7, AST 65, alkaline phosphatase 194, ammonia 63. Arrangements are made for admission for hepatorenal syndrome. Her diuretics were stopped. She was started on albumin, midodrine, and octreotide. Nephrology was consulted. She was determined to have a poor overall prognosis due to acute on chronic hepatorenal syndrome with end stage liver disease. She does not want hemodialysis. Has been refusing lactulose and ammonia elevated on with some confusion. This improved with encouraging patient to take lactulose and starting Xifaxan. Her renal function continued to decline. Patient with HgB 6.7 on 03/28 and did not want recheck of blood at noon, wanted to wait till AM. 03/29 Patient is feeling comfortable, denied having any complaint. No pain no shortness of breath. He is currently awaiting for her son to come over in order to discuss her case with him. Objective - Vital Signs Vital signs: Vital Signs Temp 97.6 F 03/29/20 13:47 Pulse 92 03/29/20 13:47 Resp 17 03/29/20 13:47 BP 107/58 03/29/20 13:47 Pulse Ox 94 L 03/29/20 13:47 Intake & Output 03/28/20 03/29/20 03/29/20 18:59 06:59 18:59 Intake Total 100 Output Total 500 300 250 Balance -400 -300 -250 Weight 108.862 kg Intake: Other 100 Output: Urine 500 300 250 Uretheral (Romero) 300 250 Other: Voiding Method Indwelling Catheter Indwelling Catheter # Voids 1 # Bowel Movements 1 - Exam General: Chronically ill-appearing, no distress, appears at stated age, temporal and buccal wasting Derm: warm, dry Head: atraumatic, normocephalic, symmetric Eyes: EOMI, no lid lag, anicteric sclera Mouth: no lip lesion, mucus membranes moist Cardiovascular: S1S2 reg, no murmur, positive posterior tibial pulse bilateral, Lungs: Decreased breath sounds bilateral, no rhonchi, no rales , no accessory muscle use Abdominal: + distended, soft, nontender to palpation, no guarding, no appreciable organomegaly Ext: no gross muscle atrophy, 4+ edema bilateral lower extremities, no contractures Neuro: CN II-XI grossly intact, no focal neuro deficits Psych: Alert, oriented, admits to thinking her son was in the room today - Labs CBC & Chem 7: 03/29/20 06:40 03/29/20 06:40 Labs: Abnormal Lab Results - Last 24 Hours (Table) 03/28/20 03/28/20 03/29/20 Range/Units 16:58 20:19 06:40 RBC 2.26 L (3.80-5.40) m/uL Hgb 6.8 L* (11.4-16.0) gm/dL Hct 21.7 L (34.0-46.0) % RDW 24.4 H (11.5-15.5) % Plt Count 49 L (150-450) k/uL PT (9.9-11.9) sec INR (0.90-1.11) Sodium (135-145) mmol/L BUN (9.0-27.0) mg/dL Creatinine (0.6-1.5) mg/dL Est GFR (CKD-EPI)AfAm (60.0-200.0) Est GFR (CKD-EPI)NonAf (60.0-200.0) BUN/Creatinine Ratio (12.00-20.00) Ratio Glucose (70-110) mg/dL POC Glucose (mg/dL) 219 H 205 H (75-99) mg/dL Calcium (8.7-10.3) mg/dL Total Bilirubin (0.3-1.2) mg/dL AST (13-35) U/L Alkaline Phosphatase (41-126) U/L Ammonia (<30) umol/L Total Protein (6.2-8.2) g/dL Albumin (3.80-4.90) g/dL Albumin/Globulin Ratio (1.60-3.17) g/dL Crossmatch 03/29/20 03/29/20 03/29/20 Range/Units 06:40 06:40 06:40 RBC (3.80-5.40) m/uL Hgb (11.4-16.0) gm/dL Hct (34.0-46.0) % RDW (11.5-15.5) % Plt Count (150-450) k/uL PT 16.3 H (9.9-11.9) sec INR 1.56 H (0.90-1.11) Sodium 133 L (135-145) mmol/L BUN 96.0 H (9.0-27.0) mg/dL Creatinine 3.9 H (0.6-1.5) mg/dL Est GFR (CKD-EPI)AfAm 15.0 L (60.0-200.0) Est GFR (CKD-EPI)NonAf 12.9 L (60.0-200.0) BUN/Creatinine Ratio 24.62 H (12.00-20.00) Ratio Glucose 155 H (70-110) mg/dL POC Glucose (mg/dL) (75-99) mg/dL Calcium 8.4 L (8.7-10.3) mg/dL Total Bilirubin 3.2 H (0.3-1.2) mg/dL AST 56 H (13-35) U/L Alkaline Phosphatase 168 H (41-126) U/L Ammonia 77 H (<30) umol/L Total Protein 5.5 L (6.2-8.2) g/dL Albumin 3.20 L (3.80-4.90) g/dL Albumin/Globulin Ratio 1.39 L (1.60-3.17) g/dL Crossmatch 03/29/20 03/29/20 03/29/20 Range/Units 06:47 11:19 13:02 RBC (3.80-5.40) m/uL Hgb (11.4-16.0) gm/dL Hct (34.0-46.0) % RDW (11.5-15.5) % Plt Count (150-450) k/uL PT (9.9-11.9) sec INR (0.90-1.11) Sodium (135-145) mmol/L BUN (9.0-27.0) mg/dL Creatinine (0.6-1.5) mg/dL Est GFR (CKD-EPI)AfAm (60.0-200.0) Est GFR (CKD-EPI)NonAf (60.0-200.0) BUN/Creatinine Ratio (12.00-20.00) Ratio Glucose (70-110) mg/dL POC Glucose (mg/dL) 164 H 196 H (75-99) mg/dL Calcium (8.7-10.3) mg/dL Total Bilirubin (0.3-1.2) mg/dL AST (13-35) U/L Alkaline Phosphatase (41-126) U/L Ammonia (<30) umol/L Total Protein (6.2-8.2) g/dL Albumin (3.80-4.90) g/dL Albumin/Globulin Ratio (1.60-3.17) g/dL Crossmatch See Detail Assessment and Plan Plan: Acute kidney injury, hyponatremia with CKD, Hepatorenal syndrome -Nephrology recs appreciated: Lasix IV 80 mg twice daily -Continue Midodrin, octreotide -Albumin completed -Avoid additional nephrotoxic agents -Follow BMP closely - does not want HD End-stage cirrhosis requiring recurrent paracentesis -DNR. Plans are for transition to hospice on discharge - Son Jose will be here ThursdayMar 30 his plane lands at 2:45 PM. Continue medical care until then. Anticipate transition to hospice once son arrives. - Continue lactulose/ xifaxan - Lasix - Continue to monitor Anemia, thrombocytopenia - Worsening anemia. Will transfuse one unit of PRBC. - Follow CBC - Suspect due to advanced liver disease Diabetes mellitus type 2, insulin controlled - Sliding-scale insulin - Continue levemir 5 units. Added 03/28. - Follow blood sugars - Hemoglobin A1c 4.7 on 03/07/20 Bipolar disorder -Continue current medications Stage II pressure ulcer to coccyx - POA - Off load - wound care hyperkalemia, resolved [facility] is getting her son Jose home. Case # [id number]. Plan will be to continue with current medical care to try to be as healthy as possible for one her son arrives anticipate Thursday with plane landing at 2:45 PM. She then plans on transitioning to hospice. Ideally she would like to be in a place with hospice where she could have visitors. However she would be willing to go back to [facility] with hospice. Her Son, Mother Maryellen, and Antoni will all be allowed to visit one at a time. DVT prophylaxis: SCDs Discussed with: Patient, nursing, Anticipated discharge: 2-[address]: undetermined A total of 35 minutes was spent on the care of this complex patient more than 50% of the time was spent in counseling and care coordination.
--- NOTE | 2020-03-29 15:42 | P.PN ---
Subjective Progress Note Date: 03/29/20 Principal diagnosis: Decompensated Becker cirrhosis, ascites, encephalopathy This is a 49-year-old female with a history of decompensated cirrhosis from Becker, ascites who requires frequent paracentesis approximately every 10-14 days, and encephalopathy. Patient has been seen by nephrology for worsening kidney function. The patient has little support at home, has been noncompliant in the past with medication and follow-up. The patient has a poor prognosis and medicine as well as nephrology have discussed with patient considering possible hospice and comfort care. Dr. Zapata arranged patient's son to be able to visit the patient and should arrive on Thursday. Today she states she is feeling better. She denies any abdominal pain, nausea, or vomiting. She is stating that she feels that she is starting to become more distended. Last paracentesis was March 23 for which they removed a 0.5 L. Denies any shortness of breath. Nephrology continues to follow patient for acute kidney injury. She is being maintained on Lasix 80 mg twice daily. Continued on midodrine, octreotide and lactulose. The patient is refusing any form of renal placement therapy at this time. The patient is alert and oriented 3. She did take her lactulose. Her ammonia level is today 77. Her hemoglobin is 6.8, she is willing to accept blood products. Patient is awaiting arrival of son, plan is outpatient hospice. Objective - Vital Signs Vital signs: Vital Signs Temp 97.7 F 03/29/20 07:52 Pulse 87 03/29/20 07:52 Resp 16 03/29/20 08:00 BP 107/64 03/29/20 07:52 Pulse Ox 96 03/29/20 07:52 Intake & Output 03/28/20 03/29/20 03/29/20 18:59 06:59 18:59 Intake Total 100 Output Total 500 300 Balance -400 -300 Weight 108.862 kg Intake: Other 100 Output: Urine 500 300 Uretheral (Romero) 300 Other: Voiding Method Indwelling Catheter Indwelling Catheter # Voids 1 # Bowel Movements 1 - Exam General appearance: The patient is alert, oriented, in no acute distress. Obese. HET: Head is normocephalic and atraumatic. Conjunctiva pink. Sclera anicteric. Neck: Supple without lymphadenopathy. Abdomen: Soft, obese, nontender, distended. No guarding or rigidity. Extremities: Normal skin color and turgor. Bilateral lower extremity +2 pitting edema Neurological: No focal deficits. Alert and oriented 3. - Labs CBC & Chem 7: 03/29/20 06:40 03/29/20 06:40 Labs: Abnormal Lab Results - Last 24 Hours (Table) 03/28/20 03/28/20 03/28/20 Range/Units 11:54 16:58 20:19 RBC (3.80-5.40) m/uL Hgb (11.4-16.0) gm/dL Hct (34.0-46.0) % RDW (11.5-15.5) % Plt Count (150-450) k/uL PT (9.9-11.9) sec INR (0.90-1.11) Sodium (135-145) mmol/L BUN (9.0-27.0) mg/dL Creatinine (0.6-1.5) mg/dL Est GFR (CKD-EPI)AfAm (60.0-200.0) Est GFR (CKD-EPI)NonAf (60.0-200.0) BUN/Creatinine Ratio (12.00-20.00) Ratio Glucose (70-110) mg/dL POC Glucose (mg/dL) 283 H 219 H 205 H (75-99) mg/dL Calcium (8.7-10.3) mg/dL Total Bilirubin (0.3-1.2) mg/dL AST (13-35) U/L Alkaline Phosphatase (41-126) U/L Ammonia (<30) umol/L Total Protein (6.2-8.2) g/dL Albumin (3.80-4.90) g/dL Albumin/Globulin Ratio (1.60-3.17) g/dL 03/29/20 03/29/20 03/29/20 Range/Units 06:40 06:40 06:40 RBC 2.26 L (3.80-5.40) m/uL Hgb 6.8 L* (11.4-16.0) gm/dL Hct 21.7 L (34.0-46.0) % RDW 24.4 H (11.5-15.5) % Plt Count 49 L (150-450) k/uL PT 16.3 H (9.9-11.9) sec INR 1.56 H (0.90-1.11) Sodium 133 L (135-145) mmol/L BUN 96.0 H (9.0-27.0) mg/dL Creatinine 3.9 H (0.6-1.5) mg/dL Est GFR (CKD-EPI)AfAm 15.0 L (60.0-200.0) Est GFR (CKD-EPI)NonAf 12.9 L (60.0-200.0) BUN/Creatinine Ratio 24.62 H (12.00-20.00) Ratio Glucose 155 H (70-110) mg/dL POC Glucose (mg/dL) (75-99) mg/dL Calcium 8.4 L (8.7-10.3) mg/dL Total Bilirubin 3.2 H (0.3-1.2) mg/dL AST 56 H (13-35) U/L Alkaline Phosphatase 168 H (41-126) U/L Ammonia (<30) umol/L Total Protein 5.5 L (6.2-8.2) g/dL Albumin 3.20 L (3.80-4.90) g/dL Albumin/Globulin Ratio 1.39 L (1.60-3.17) g/dL 03/29/20 03/29/20 03/29/20 Range/Units 06:40 06:47 11:19 RBC (3.80-5.40) m/uL Hgb (11.4-16.0) gm/dL Hct (34.0-46.0) % RDW (11.5-15.5) % Plt Count (150-450) k/uL PT (9.9-11.9) sec INR (0.90-1.11) Sodium (135-145) mmol/L BUN (9.0-27.0) mg/dL Creatinine (0.6-1.5) mg/dL Est GFR (CKD-EPI)AfAm (60.0-200.0) Est GFR (CKD-EPI)NonAf (60.0-200.0) BUN/Creatinine Ratio (12.00-20.00) Ratio Glucose (70-110) mg/dL POC Glucose (mg/dL) 164 H 196 H (75-99) mg/dL Calcium (8.7-10.3) mg/dL Total Bilirubin (0.3-1.2) mg/dL AST (13-35) U/L Alkaline Phosphatase (41-126) U/L Ammonia 77 H (<30) umol/L Total Protein (6.2-8.2) g/dL Albumin (3.80-4.90) g/dL Albumin/Globulin Ratio (1.60-3.17) g/dL Assessment and Plan (1) Cirrhosis Narrative/Plan: Narrative/Plan: 49-year-old female with multiple complex medical problems including decomp ensated Becker cirrhosis requiring frequent large volume paracentesis and encephalopathy who presented due to laboratory abnormalities. Patient found to have elevation in creatinine and electrolyte abnormalities on presentation. Currently she is been seen by the nephrology service. She has a known history of decompensated cirrhosis and has been treated with diuretic therapy and high volume paracentesis in the past as well as lactulose for encephalopathy. She was previously referred to [facility] but has failed to follow up due to social issues. Once the patient has seen and visited with her son she states her wishes is to go to hospice care. Current Visit: No Status: Acute Code(s): K74.60 - UNSPECIFIED CIRRHOSIS OF LIVER SNOMED Code(s): 67578671 (2) Ascites Current Visit: No Status: Acute Code(s): R18.8 - OTHER ASCITES SNOMED Code(s): 625394059 (3) Hyperkalemia Current Visit: Yes Status: Acute Code(s): E87.5 - HYPERKALEMIA SNOMED Code(s): 96840584 (4) Abdominal distention Narrative/Plan: Patient will be scheduled for therapeutic paracentesis tomorrow Current Visit: No Status: Acute Code(s): R14.0 - ABDOMINAL DISTENSION (GASEOUS) SNOMED Code(s): 86086041 (5) Hyperbilirubinemia Current Visit: No Status: Acute Code(s): E80.6 - OTHER DISORDERS OF BILIRUBIN METABOLISM SNOMED Code(s): 12784389 Plan: Supportive care Low sodium restricted diet with 0.5 L fluid restriction Continue lactulose therapy Continue octreotide and midodrine for suspected hepatorenal syndrome Xifaxin 550 mg BID added Transfuse 1 unit of packed red blood cells Patient will be scheduled for therapeutic paracentesis Appreciate recommendations from nephrology service Extensive discussion was had by Dr. Read with the primary team, as well as the patient about overall poor prognosis, the patient would not be a candidate for liver transplant given her poor functional status as well as social issues, the patient did make herself DO NOT RESUSCITATE. Per case management's note, patient's son should be arriving in [place] Thursday afternoon. Plan is for patient to go home with hospice care. Thank you for allowing us to participate in the care of the patient we will continue to follow Dr. Kelsy Garrison I agree with the dictator's note ,documented as a scribe by Niko Man.
[2020-03-29 16:38] LABS: Glucose,Whole Blood 235 mg/dL (75-99)
[2020-03-29] MEDS: FOLIC ACID 1 MG TAB PO SCH (17:04)
[2020-03-29 20:48] LABS: Glucose,Whole Blood 224 mg/dL (75-99)
[2020-03-29] MEDS: traZODone HCL 100 MG TAB PO SCH (22:16)
[2020-03-29] MEDS: INSULIN DETEMIR (LEVEMIR) 100 UNIT/ML SYR SQ SCH (22:27)
[2020-03-30] MEDS: OCTREOTIDE 100 MCG/ML INJ SQ SCH ×3 (01:24→17:34)
[2020-03-30 07:22] LABS: Glucose,Whole Blood 179 mg/dL (75-99)
[2020-03-30] MEDS: HYDROmorphone 0.5 MG/0.5 ML SYRINGE IVP PRN (07:31)
[2020-03-30] MEDS: LACTULOSE 20 GM/30 ML CUP PO SCH ×2 (07:32→17:26)
[2020-03-30] MEDS: MIDODRINE 5 MG TAB PO SCH ×3 (07:32→17:25)
[2020-03-30] MEDS: lamoTRIgine 25 MG TAB PO SCH ×2 (07:33→17:26)
[2020-03-30] MEDS: SERTRALINE 100 MG TAB PO SCH (07:34)
[2020-03-30] MEDS: PANTOPRAZOLE 40 MG TABLET PO SCH ×2 (07:34→17:26)
[2020-03-30] MEDS: INSULIN ASPART (NovoLOG) 100 UNIT/ML VIAL SQ SCH ×4 (07:43→21:06)
[2020-03-30] MEDS: FUROSEMIDE 10 MG/ML 10 ML VIAL IV SCH ×2 (08:58→21:07)
[2020-03-30] MEDS: RIFAXIMIN 550 MG TABLET PO SCH ×2 (08:59→21:08)
[2020-03-30] MEDS: ENOXAPARIN 30 MG/0.3 ML SYRINGE SQ SCH (08:59)
[2020-03-30 09:16] LABS: Anisocytosis Moderate; Basophils % (A) 1 %; Eosinophils # (A) 0.1 k/uL (0-0.7); Eosinophils % (A) 2 %; HCT 27.2 % (34.0-46.0); Hypochromasia Moderate; Lymphocytes # (A) 0.9 k/uL (1.0-4.8); Lymphocytes % (A) 13 %; MCH 30.7 pg (25.0-35.0); Macrocytosis Moderate; Mean Platelet Volume 7.5; Microcytosis Slight; Monocytes # (A) 0.4 k/uL (0-1.0); Monocytes % (A) 6 %; Neutrophils # (A) 5.6 k/uL (1.3-7.7); Neutrophils % (A) 77 %; RBC 2.83 m/uL (3.80-5.40); RDW 23.2 % (11.5-15.5); WBC 7.3 k/uL (3.8-10.6)
[2020-03-30 09:17] LABS: Platelet Count 49 k/uL (150-450)
[2020-03-30 09:20] LABS: HGB 8.7 gm/dL (11.4-16.0)
[2020-03-30 09:38] LABS: Anion Gap 12.1 mmol/L (4.00-12.00); BUN/Creat Ratio 25.38 Ratio (12.00-20.00); Calcium 8.5 mg/dL (8.7-10.3); Carbon Dioxide 20.9 mmol/L (21.6-31.8); Non-African American GFR(CKD) 12.9 (60.0-200.0)
[2020-03-30 11:30] LABS: Glucose,Whole Blood 172 mg/dL (75-99)
--- NOTE | 2020-03-30 12:38 | P.PN ---
Subjective Progress Note Date: 03/30/20 Principal diagnosis: Decompensated Becker cirrhosis, ascites, encephalopathy This is a 49-year-old female with a history of decompensated cirrhosis from Becker, ascites who requires frequent paracentesis approximately every 10-14 days, and encephalopathy. Patient has been seen by nephrology for worsening kidney function. The patient has little support at home, has been noncompliant in the past with medication and follow-up. The patient has a poor prognosis and medicine as well as nephrology have discussed with patient considering possible hospice and comfort care. Dr. Zapata arranged patient's son to be able to visit the patient and should arrive on Thursday. Today she states she is feeling better. She denies any abdominal pain, nausea, or vomiting. She is stating that she feels that she is starting to become more distended. Last paracentesis was March 23 for which they removed a 0.5 L. Denies any shortness of breath. Nephrology continues to follow patient for acute kidney injury. She is being maintained on Lasix 80 mg twice daily. Continued on midodrine, octreotide and lactulose. The patient is refusing any form of renal placement therapy at this time. The patient is alert and oriented 3. She is taking her lactulose reported 3 bowel movements yesterday. She was transfused 1 unit of packed red blood cells for hemoglobin of 6.8 yesterday, repeat hemoglobin this morning is 8.7. All other lab work pending at this time. She is scheduled for a therapeutic paracentesis. Patient is awaiting arrival of son, plan is outpatient hospice. Objective - Vital Signs Vital signs: Vital Signs Temp 97.9 F 03/30/20 08:00 Pulse 87 03/30/20 08:00 Resp 17 03/30/20 08:00 BP 106/66 03/30/20 08:00 Pulse Ox 96 03/30/20 08:00 Intake & Output 03/29/20 03/30/20 03/30/20 18:59 06:59 18:59 Intake Total 200 310 Output Total 250 1100 Balance -50 -790 Intake: Oral 200 0 Blood Product 310 Rc As-1 Unit 310 [id number] Output: Urine 250 1100 Uretheral (Romero) 250 300 Other: Voiding Method Indwelling Catheter Indwelling Catheter # Bowel Movements 1 - Labs CBC & Chem 7: 03/30/20 08:59 03/30/20 05:48 Labs: Abnormal Lab Results - Last 24 Hours (Table) 03/29/20 03/29/20 03/29/20 Range/Units 06:40 06:40 11:19 RBC (3.80-5.40) m/uL Hgb 6.8 L* (11.4-16.0) gm/dL Hct (34.0-46.0) % RDW (11.5-15.5) % Plt Count (150-450) k/uL Lymphocytes # (1.0-4.8) k/uL Sodium 133 L (135-145) mmol/L Carbon Dioxide (21.6-31.8) mmol/L Anion Gap (4.00-12.00) mmol/L BUN 96.0 H (9.0-27.0) mg/dL Creatinine 3.9 H (0.6-1.5) mg/dL Est GFR (CKD-EPI)AfAm 15.0 L (60.0-200.0) Est GFR (CKD-EPI)NonAf 12.9 L (60.0-200.0) BUN/Creatinine Ratio 24.62 H (12.00-20.00) Ratio Glucose 155 H (70-110) mg/dL POC Glucose (mg/dL) 196 H (75-99) mg/dL Calcium 8.4 L (8.7-10.3) mg/dL Total Bilirubin 3.2 H (0.3-1.2) mg/dL AST 56 H (13-35) U/L Alkaline Phosphatase 168 H (41-126) U/L Total Protein 5.5 L (6.2-8.2) g/dL Albumin 3.20 L (3.80-4.90) g/dL Albumin/Globulin Ratio 1.39 L (1.60-3.17) g/dL Crossmatch 03/29/20 03/29/20 03/29/20 Range/Units 13:02 16:36 20:45 RBC (3.80-5.40) m/uL Hgb (11.4-16.0) gm/dL Hct (34.0-46.0) % RDW (11.5-15.5) % Plt Count (150-450) k/uL Lymphocytes # (1.0-4.8) k/uL Sodium (135-145) mmol/L Carbon Dioxide (21.6-31.8) mmol/L Anion Gap (4.00-12.00) mmol/L BUN (9.0-27.0) mg/dL Creatinine (0.6-1.5) mg/dL Est GFR (CKD-EPI)AfAm (60.0-200.0) Est GFR (CKD-EPI)NonAf (60.0-200.0) BUN/Creatinine Ratio (12.00-20.00) Ratio Glucose (70-110) mg/dL POC Glucose (mg/dL) 235 H 224 H (75-99) mg/dL Calcium (8.7-10.3) mg/dL Total Bilirubin (0.3-1.2) mg/dL AST (13-35) U/L Alkaline Phosphatase (41-126) U/L Total Protein (6.2-8.2) g/dL Albumin (3.80-4.90) g/dL Albumin/Globulin Ratio (1.60-3.17) g/dL Crossmatch See Detail 03/30/20 03/30/20 03/30/20 Range/Units 05:48 07:20 08:59 RBC 2.83 L (3.80-5.40) m/uL Hgb 8.7 L D (11.4-16.0) gm/dL Hct 27.2 L (34.0-46.0) % RDW 23.2 H (11.5-15.5) % Plt Count 49 L (150-450) k/uL Lymphocytes # 0.9 L (1.0-4.8) k/uL Sodium 129 L (135-145) mmol/L Carbon Dioxide 20.9 L (21.6-31.8) mmol/L Anion Gap 12.10 H (4.00-12.00) mmol/L BUN 99.0 H (9.0-27.0) mg/dL Creatinine 3.9 H (0.6-1.5) mg/dL Est GFR (CKD-EPI)AfAm 15.0 L (60.0-200.0) Est GFR (CKD-EPI)NonAf 12.9 L (60.0-200.0) BUN/Creatinine Ratio 25.38 H (12.00-20.00) Ratio Glucose 180 H (70-110) mg/dL POC Glucose (mg/dL) 179 H (75-99) mg/dL Calcium 8.5 L (8.7-10.3) mg/dL Total Bilirubin (0.3-1.2) mg/dL AST (13-35) U/L Alkaline Phosphatase (41-126) U/L Total Protein (6.2-8.2) g/dL Albumin (3.80-4.90) g/dL Albumin/Globulin Ratio (1.60-3.17) g/dL Crossmatch Assessment and Plan (1) Cirrhosis Narrative/Plan: Narrative/Plan: 49-year-old female with multiple complex medical problems including decompensated Becker cirrhosis requiring frequent large volume paracentesis and encephalopathy who presented due to laboratory abnormalities. Patient found to have elevation in creatinine and electrolyte abnormalities on presentation. Currently she is been seen by the nephrology service. She has a known history of decompensated cirrhosis and has been treated with diuretic therapy and high volume paracentesis in the past as well as lactulose for encephalopathy. She was previously referred to [facility] but has failed to follow up due to social issues. Once the patient has seen and visited with her son she states her wishes is to go to hospice care. Current Visit: No Status: Acute Code(s): K74.60 - UNSPECIFIED CIRRHOSIS OF LIVER SNOMED Code(s): 75684114 (2) Ascites Current Visit: No Status: Acute Code(s): R18.8 - OTHER ASCITES SNOMED Code(s): 666906587 (3) Hyperkalemia Current Visit: Yes Status: Acute Code(s): E87.5 - HYPERKALEMIA SNOMED Code(s): 01386604 (4) Abdominal distention Narrative/Plan: Patient pending therapeutic paracentesis Current Visit: No Status: Acute Code(s): R14.0 - ABDOMINAL DISTENSION (GASEOUS) SNOMED Code(s): 19683283 (5) Hyperbilirubinemia Current Visit: No Status: Acute Code(s): E80.6 - OTHER DISORDERS OF BILIRUBIN METABOLISM SNOMED Code(s): 33239890 Plan: Supportive care Low sodium restricted diet with 0.5 L fluid restriction Continue lactulose therapy Continue octreotide and midodrine for suspected hepatorenal syndrome Xifaxin 550 mg BID added Repeat daily CBC Transfuse as needed for hemoglobin less than 7 Patient is scheduled for therapeutic paracentesis Appreciate recommendations from nephrology service Extensive discussion was had by Dr. Read with the primary team, as well as the patient about overall poor prognosis, the patient would not be a candidate for liver transplant given her poor functional status as well as social issues, the patient did make herself DO NOT RESUSCITATE. Per case management's note, patient's son should be arriving in [place] this afternoon. Plan is for patient to go home with hospice care. Thank you for allowing us to participate in the care of the patient we will continue to follow Dr. Kelsy Garrison I agree with the dictator's note ,documented as a scribe by Niko Man.
--- NOTE | 2020-03-30 12:58 | P.PN ---
Subjective Patient is seen in follow-up for acute kidney injury. Renal function stable. No changes overnight. Awaiting son's arrival today. Scheduled for paracentesis today. Vital signs are stable. General: The patient appeared well nourished and normally developed. HEENT: Head exam is unremarkable. Neck is without jugular venous distension. LUNGS: Breath sounds decreased. HEART: Rate and Rhythm are regular. ABDOMEN: Soft, nontender. Distention noted EXTREMITITES: 2+ edema. Objective - Vital Signs Vital signs: Vital Signs Temp 97.9 F 03/30/20 08:00 Pulse 87 03/30/20 08:00 Resp 17 03/30/20 08:00 BP 106/66 03/30/20 08:00 Pulse Ox 96 03/30/20 08:00 Intake & Output 03/29/20 03/30/20 03/30/20 18:59 06:59 18:59 Intake Total 200 310 Output Total 250 1100 Balance -50 -790 Intake: Oral 200 0 Blood Product 310 Rc As-1 Unit 310 [id number] Output: Urine 250 1100 Uretheral (Romero) 250 300 Other: Voiding Method Indwelling Catheter Indwelling Catheter # Bowel Movements 1 - Labs CBC & Chem 7: 03/30/20 08:59 03/30/20 05:48 Labs: Abnormal Lab Results - Last 24 Hours (Table) 03/29/20 03/29/20 03/29/20 Range/Units 06:40 13:02 16:36 RBC (3.80-5.40) m/uL Hgb 6.8 L* (11.4-16.0) gm/dL Hct (34.0-46.0) % RDW (11.5-15.5) % Plt Count (150-450) k/uL Lymphocytes # (1.0-4.8) k/uL Sodium (135-145) mmol/L Carbon Dioxide (21.6-31.8) mmol/L Anion Gap (4.00-12.00) mmol/L BUN (9.0-27.0) mg/dL Creatinine (0.6-1.5) mg/dL Est GFR (CKD-EPI)AfAm (60.0-200.0) Est GFR (CKD-EPI)NonAf (60.0-200.0) BUN/Creatinine Ratio (12.00-20.00) Ratio Glucose (70-110) mg/dL POC Glucose (mg/dL) 235 H (75-99) mg/dL Calcium (8.7-10.3) mg/dL Crossmatch See Detail 03/29/20 03/30/20 03/30/20 Range/Units 20:45 05:48 07:20 RBC (3.80-5.40) m/uL Hgb (11.4-16.0) gm/dL Hct (34.0-46.0) % RDW (11.5-15.5) % Plt Count (150-450) k/uL Lymphocytes # (1.0-4.8) k/uL Sodium 129 L (135-145) mmol/L Carbon Dioxide 20.9 L (21.6-31.8) mmol/L Anion Gap 12.10 H (4.00-12.00) mmol/L BUN 99.0 H (9.0-27.0) mg/dL Creatinine 3.9 H (0.6-1.5) mg/dL Est GFR (CKD-EPI)AfAm 15.0 L (60.0-200.0) Est GFR (CKD-EPI)NonAf 12.9 L (60.0-200.0) BUN/Creatinine Ratio 25.38 H (12.00-20.00) Ratio Glucose 180 H (70-110) mg/dL POC Glucose (mg/dL) 224 H 179 H (75-99) mg/dL Calcium 8.5 L (8.7-10.3) mg/dL Crossmatch 03/30/20 03/30/20 Range/Units 08:59 11:29 RBC 2.83 L (3.80-5.40) m/uL Hgb 8.7 L D (11.4-16.0) gm/dL Hct 27.2 L (34.0-46.0) % RDW 23.2 H (11.5-15.5) % Plt Count 49 L (150-450) k/uL Lymphocytes # 0.9 L (1.0-4.8) k/uL Sodium (135-145) mmol/L Carbon Dioxide (21.6-31.8) mmol/L Anion Gap (4.00-12.00) mmol/L BUN (9.0-27.0) mg/dL Creatinine (0.6-1.5) mg/dL Est GFR (CKD-EPI)AfAm (60.0-200.0) Est GFR (CKD-EPI)NonAf (60.0-200.0) BUN/Creatinine Ratio (12.00-20.00) Ratio Glucose (70-110) mg/dL POC Glucose (mg/dL) 172 H (75-99) mg/dL Calcium (8.7-10.3) mg/dL Crossmatch Assessment and Plan Plan: Assessment: 1. Acute kidney injury secondary to ATN secondary to hepatorenal syndrome. Creatinine stable at 3.9 today. 2. Hypervolemic hyponatremia. 3. Hyperkalemia secondary to acute kidney injury, metabolic acidosis and Aldactone. Stable. 4. Decompensated liver cirrhosis. 5. Hypotension secondary to cirrhosis maintained on midodrine. 6. Volume overload. 7. Hepatic encephalopathy. Maintained on lactulose. 8. Acute blood loss anemia. Hemoglobin 8.7 today. Status post blood transfusion. Plan: Maintain Lasix 80 mg twice daily. Hold off on spironolactone due to hyperkalemia. Encouraged oral intake, particularly protein. Low-salt diet and 1.5 L fluid restriction. Patient refusing any form of renal replacement therapy. Hospice being considered. Awaiting son's arrival. Monitor hemoglobin and transfuse as needed. 25 g of albumin now an additional 25 g post paracentesis.
[2020-03-30] MEDS: ALBUMIN HUMAN 25% 50 ML in EMPTY BAG 1 BAG IVPB SCH ×4 (13:27→17:18)
[2020-03-30 16:22] LABS: Glucose,Whole Blood 193 mg/dL (75-99)
--- NOTE | 2020-03-30 16:23 | P.PN ---
Subjective Progress Note Date: 03/30/20 Principal diagnosis: renal failure Patient is feeling the same, no changes. No pain. No shortness of breath. No fevers or chills. No overnight events. Objective - Vital Signs Vital signs: Vital Signs Temp 97.9 F 03/30/20 15:21 Pulse 86 03/30/20 15:52 Resp 16 03/30/20 15:52 BP 94/51 03/30/20 15:52 Pulse Ox 96 03/30/20 15:52 Intake & Output 03/29/20 03/30/20 03/30/20 18:59 06:59 18:59 Intake Total 200 310 Output Total 250 1100 Balance -50 -790 Intake: Oral 200 0 Blood Product 310 Rc As-1 Unit 310 [id number] Output: Urine 250 1100 Uretheral (Romero) 250 300 Other: Voiding Method Indwelling Catheter Indwelling Catheter # Bowel Movements 1 - Exam General: Chronically ill-appearing, no distress, appears at stated age, temporal and buccal wasting Derm: warm, dry Head: atraumatic, normocephalic, symmetric Eyes: EOMI, no lid lag, anicteric sclera Mouth: no lip lesion, mucus membranes moist Cardiovascular: S1S2 reg, no murmur, positive posterior tibial pulse bilateral, Lungs: Decreased breath sounds bilateral, no rhonchi, no rales , no accessory muscle use Abdominal: + distended, soft, nontender to palpation, no guarding, no appreciable organomegaly Ext: no gross muscle atrophy, 4+ edema bilateral lower extremities, no contractures Neuro: CN II-XI grossly intact, no focal neuro deficits Psych: Alert, oriented, admits to thinking her son was in the room today - Labs CBC & Chem 7: 03/30/20 08:59 03/30/20 05:48 Labs: Abnormal Lab Results - Last 24 Hours (Table) 03/29/20 03/29/20 03/29/20 Range/Units 13:02 16:36 20:45 RBC (3.80-5.40) m/uL Hgb (11.4-16.0) gm/dL Hct (34.0-46.0) % RDW (11.5-15.5) % Plt Count (150-450) k/uL Lymphocytes # (1.0-4.8) k/uL Sodium (135-145) mmol/L Carbon Dioxide (21.6-31.8) mmol/L Anion Gap (4.00-12.00) mmol/L BUN (9.0-27.0) mg/dL Creatinine (0.6-1.5) mg/dL Est GFR (CKD-EPI)AfAm (60.0-200.0) Est GFR (CKD-EPI)NonAf (60.0-200.0) BUN/Creatinine Ratio (12.00-20.00) Ratio Glucose (70-110) mg/dL POC Glucose (mg/dL) 235 H 224 H (75-99) mg/dL Calcium (8.7-10.3) mg/dL Crossmatch See Detail 03/30/20 03/30/20 03/30/20 Range/Units 05:48 07:20 08:59 RBC 2.83 L (3.80-5.40) m/uL Hgb 8.7 L D (11.4-16.0) gm/dL Hct 27.2 L (34.0-46.0) % RDW 23.2 H (11.5-15.5) % Plt Count 49 L (150-450) k/uL Lymphocytes # 0.9 L (1.0-4.8) k/uL Sodium 129 L (135-145) mmol/L Carbon Dioxide 20.9 L (21.6-31.8) mmol/L Anion Gap 12.10 H (4.00-12.00) mmol/L BUN 99.0 H (9.0-27.0) mg/dL Creatinine 3.9 H (0.6-1.5) mg/dL Est GFR (CKD-EPI)AfAm 15.0 L (60.0-200.0) Est GFR (CKD-EPI)NonAf 12.9 L (60.0-200.0) BUN/Creatinine Ratio 25.38 H (12.00-20.00) Ratio Glucose 180 H (70-110) mg/dL POC Glucose (mg/dL) 179 H (75-99) mg/dL Calcium 8.5 L (8.7-10.3) mg/dL Crossmatch 03/30/20 Range/Units 11:29 RBC (3.80-5.40) m/uL Hgb (11.4-16.0) gm/dL Hct (34.0-46.0) % RDW (11.5-15.5) % Plt Count (150-450) k/uL Lymphocytes # (1.0-4.8) k/uL Sodium (135-145) mmol/L Carbon Dioxide (21.6-31.8) mmol/L Anion Gap (4.00-12.00) mmol/L BUN (9.0-27.0) mg/dL Creatinine (0.6-1.5) mg/dL Est GFR (CKD-EPI)AfAm (60.0-200.0) Est GFR (CKD-EPI)NonAf (60.0-200.0) BUN/Creatinine Ratio (12.00-20.00) Ratio Glucose (70-110) mg/dL POC Glucose (mg/dL) 172 H (75-99) mg/dL Calcium (8.7-10.3) mg/dL Crossmatch Assessment and Plan Plan: Acute kidney injury, hyponatremia with CKD, Hepatorenal syndrome -Nephrology recs appreciated: Lasix IV 80 mg twice daily -Continue Midodrin, octreotide -Albumin completed -Avoid additional nephrotoxic agents -Follow BMP closely -Does not want HD End-stage cirrhosis requiring recurrent paracentesis - Had paracentesis today 03/30 - Continue lactulose/ xifaxan - Lasix 80mg IV bid. - Continue to monitor Anemia, thrombocytopenia - Worsening anemia. One unit of PRBC transfused 03/29. - Hgb better today - Suspect due to advanced liver disease Diabetes mellitus type 2, insulin controlled - Sliding-scale insulin - Continue levemir 5 units. Added 03/28. - Follow blood sugars - Hemoglobin A1c 4.7 on 03/07/20 Bipolar disorder -Continue current medications Stage II pressure ulcer to coccyx - POA - Off load - wound care hyperkalemia, resolved Code status DNR. Plans are for transition to hospice on discharge - Son Jose will be here today. DVT prophylaxis: SCDs Discussed with: Patient, nursing Anticipated discharge: tomorrow to SNF with hospice. A total of 35 minutes was spent on the care of this complex patient more than 50% of the time was spent in counseling and care coordination.
--- NOTE | 2020-03-30 16:24 | US ---
EXAMINATION TYPE: US paracentesis abd w/image DATE OF EXAM: 03/30/2020 COMPARISON: NONE HISTORY: Ascites. PROCEDURE: Maximal barrier technique was utilized. The skin overlying a suitable pocket of fluid was localized with ultrasound and the overlying skin was prepped and draped. Ultrasound was utilized with sterile technique. Lidocaine was used for local anesthesia and a skin chantel made with a scalpel. Catheter was advanced under direct ultrasound guidance into a suitable pocket of fluid and approximately 7.9 liter s of serous fluid were removed. Catheter was withdrawn and hemostasis achieved. There is no immedia te complication; the patient is discharged in stable condition. IMPRESSION: STATUS POST ULTRASOUND GUIDED PARACENTESIS FOR PALLIATION OF ASCITES. THIS PROCEDURE WA S PERFORMED BY THE UNDERSIGNED.
[2020-03-30] MEDS: FOLIC ACID 1 MG TAB PO SCH (17:26)
[2020-03-30 19:38] VITALS: TEMP 97.6
[2020-03-30 20:55] LABS: Glucose,Whole Blood 247 mg/dL (75-99)
[2020-03-30] MEDS: INSULIN DETEMIR (LEVEMIR) 100 UNIT/ML SYR SQ SCH (21:05)
[2020-03-30] MEDS: traZODone HCL 100 MG TAB PO SCH (21:08)
[2020-03-31] MEDS: OCTREOTIDE 100 MCG/ML INJ SQ SCH ×2 (00:50→08:14)
[2020-03-31 04:51] VITALS: BP 99/50; PULSE 72; RESP 16
[2020-03-31 06:57] LABS: Glucose,Whole Blood 196 mg/dL (75-99)
[2020-03-31] MEDS: INSULIN ASPART (NovoLOG) 100 UNIT/ML VIAL SQ SCH (08:01)
[2020-03-31] MEDS: LACTULOSE 20 GM/30 ML CUP PO SCH (08:02)
[2020-03-31] MEDS: MIDODRINE 5 MG TAB PO SCH (08:04)
[2020-03-31] MEDS: ENOXAPARIN 30 MG/0.3 ML SYRINGE SQ SCH (08:04)
[2020-03-31] MEDS: lamoTRIgine 25 MG TAB PO SCH (08:05)
[2020-03-31] MEDS: SERTRALINE 100 MG TAB PO SCH (08:06)
[2020-03-31] MEDS: FUROSEMIDE 10 MG/ML 10 ML VIAL IV SCH (08:07)
[2020-03-31] MEDS: RIFAXIMIN 550 MG TABLET PO SCH (08:09)
[2020-03-31] MEDS: PANTOPRAZOLE 40 MG TABLET PO SCH (08:13)
--- NOTE | 2020-03-31 10:05 | PN ---
PROGRESS NOTE DATE OF SERVICE: 03/31/2020 INTERVAL HISTORY: Patient is a 49-year-old pleasant white female with history of end-stage liver disease with recurrent refractory ascites and acute kidney injury. She is being considered for home hospice. She underwent large-volume paracentesis yesterday and 8.5 L of fluid was removed. She is feeling much better. No abdominal pain. No nausea, no vomiting. PHYSICAL EXAMINATION: GENERAL: She appears comfortable, no obvious distress. VITAL SIGNS: Vital signs show a blood pressure of 99/50, pulse rate 72, temperature 97.6. HEENT: Examination unremarkable. Conjunctivae are pink. Sclerae anicteric. Oral cavity no lesions. NECK: No JVD or lymph node enlargement. CHEST: Clear to auscultation. ABDOMEN: Soft, it was nontender. Bowel sounds are positive. EXTREMITIES: No pedal edema. NEURO: She is alert and oriented x3. LABS: From yesterday hemoglobin was 8.7. BUN 99, creatinine is 3.9. Ammonia level 77. IMPRESSION: 1. End-stage liver disease with gradual decompensation. 2. Hepatic encephalopathy. 3. Acute kidney injury, rule out hepatorenal syndrome. 4. Refractory ascites requiring frequent large volume paracentesis. RECOMMENDATIONS: Agree with hospice care at this time. Continue with current medications. We will sign off at this time. Thank you for this consultation. MMODL / IJN: [id number] /
--- NOTE | 2020-03-31 16:04 | P.DS ---
Providers Date of admission: 03/23/20 17:48 Expected date of discharge: 03/31/20 Attending physician: Kaleb Lewis MD Consults: 03/23/20 17:48 Consult Physician Routine Consulting Provider: Nate Read Consult Reason/Comments: known Do you want consulting provider notified?: Yes Consult Physician Routine Consulting Provider: Nona Lopez Consult Reason/Comments: arf Do you want consulting provider notified?: Yes Primary care physician: [facility] Hospital Course: 49-year-old female with a history of nonalcoholic steatohepatitis resulting in liver cirrhosis requiring frequent outpatient paracentesis, diabetes mellitus type 2, hypertension, and dyslipidemia who presented to the ER from [facility] due to hyperkalemia and acute renal failure. She underwent outpatient paracentesis on 03/23 with the removal of 8.5 L of fluid. On arrival to the ER her vital signs were found to be within normal limits. Initial laboratory analysis shows hemoglobin 8.5, platelets 87, sodium 124, potassium 5.8, BUN 70, creatinine 3.51, INR 1.7, AST 65, alkaline phosphatase 194, ammonia 63. Arrangements are made for admission for hepatorenal syndrome. Her diuretics were stopped. She was started on albumin, midodrine, and octreotide. Nephrology was consulted. She was determined to have a poor overall prognosis due to acute on chronic hepatorenal syndrome with endstage liver disease. She did not want hemodialysis. Her renal function continued to decline. Her hemoglobin dropped to 6.7 and patient was transfused 1 unit of packed red blood cells. She did have one more paracentesis procedure during the hospitalization for palliation, 8L of fluids removed. Patient was also diuresed with Lasix 80 mg IV twice a day. Aldactone was not used because of hyperkalemia. Due to poor prognosis hospice care was suggested, her son was called and updated. [place] came [place] her. Final decision was made to send her to [facility] with hospice care. Patient will send this morning. 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 Anemia of chronic disease Thrombocytopenia Time for discharge 35 min Patient Condition at Discharge: Fair Plan - Discharge Summary Discharge Rx Participant: No New Discharge Prescriptions: New Midodrine [ProAmatine] 10 mg PO AC-TID tab Rifaximin [Xifaxan] 550 mg PO BID tablet Continue Sertraline [Zoloft] 200 mg PO DAILY@0800 ARIPiprazole [Abilify] 20 mg PO DAILY@0800 lamoTRIgine [LaMICtal] 25 mg PO BID@0800,1700 traZODone HCL 200 mg PO HS@2100 INSULIN LISPRO (humaLOG) [humaLOG] See Protocol SQ TID@0700,1100,1630 Lactulose 20 gm PO BID@0800,1700 Folic Acid 1 mg PO DAILY@1700 traMADol HCl [Ultram] 50 mg PO Q6HR PRN PRN Reason: Pain Magnesium Hydroxide [Milk of Magnesia Concentrate] 30 ml PO DIRECTED PRN PRN Reason: Constipation bisacodyL [Dulcolax] 10 mg RECTAL DAILY PRN PRN Reason: Constipation Na Phos,M-B/Na Phos,Di-Ba [Fleet Adult] 133 ml RECTAL DAILY PRN PRN Reason: Constipation Magic Butt Paste 1 applic TOPICAL TID Glucerna Shake 1 can PO TID@0800,1700,2100 Pantoprazole [Protonix] 40 mg PO BID@0800,1700 Magnesium Oxide [Mag-Ox] 400 mg PO DAILY@1700 Magic Cup 1 each PO DAILY@1200 Ondansetron HCl [Zofran] 4 mg PO Q8HR PRN PRN Reason: Nausea Changed Furosemide [Lasix] 80 mg PO DAILY@0800 #0 Discontinued traMADol HCL [Ultram] 100 mg PO Q6HR PRN PRN Reason: Severe Pain Spironolactone [Aldactone] 50 mg PO BID@0800,1700 Zolpidem [Ambien] 10 mg PO HS@2100 Discharge Medication List Sertraline [Zoloft] 200 mg PO DAILY@0800 09/02/14 [History] ARIPiprazole [Abilify] 20 mg PO DAILY@0800 09/13/18 [History] lamoTRIgine [LaMICtal] 25 mg PO BID@0800,1700 08/23/19 [History] traZODone HCL 200 mg PO HS@2100 10/31/19 [History] Folic Acid 1 mg PO DAILY@1700 12/12/19 [History] INSULIN LISPRO (humaLOG) [humaLOG] See Protocol SQ TID@0700,1100,1630 12/12/19 [History] Lactulose 20 gm PO BID@0800,1700 12/12/19 [History] Magnesium Hydroxide [Milk of Magnesia Concentrate] 30 ml PO DIRECTED PRN 03/08/20 [History] Na Phos,M-B/Na Phos,Di-Ba [Fleet Adult] 133 ml RECTAL DAILY PRN 03/08/20 [History] bisacodyL [Dulcolax] 10 mg RECTAL DAILY PRN 03/08/20 [History] traMADol HCl [Ultram] 50 mg PO Q6HR PRN 03/08/20 [History] Glucerna Shake 1 can PO TID@0800,1700,2100 03/23/20 [History] Magic Butt Paste 1 applic TOPICAL TID 03/23/20 [History] Magic Cup 1 each PO DAILY@1200 03/23/20 [History] Magnesium Oxide [Mag-Ox] 400 mg PO DAILY@1700 03/23/20 [History] Ondansetron HCl [Zofran] 4 mg PO Q8HR PRN 03/23/20 [History] Pantoprazole [Protonix] 40 mg PO BID@0800,1700 03/23/20 [History] Furosemide [Lasix] 80 mg PO DAILY@0800 #0 03/30/20 [Rx] Midodrine [ProAmatine] 10 mg PO AC-TID tab 03/30/20 [Rx] Rifaximin [Xifaxan] 550 mg PO BID tablet 03/30/20 [Rx] Follow up Appointment(s)/Referral(s): Hospice,[facility] [REFERRING] - 03/31/20 (Pt will be discharge to the hospice home. ) Woodrow Richards [Primary Care Provider] - 1-2 days Discharge Disposition: DISCH TO [facility]
--- NOTE | 2020-04-02 12:56 | CDI ---
Documentation Clarification Form Date: 04/02/20 From: Nell Wild Phone: If you have a question about this query, please contact Misty Restrepo, Field Service Manager at [phone] between 8am and 5pm. Admit Date: 03/23/20 Discharge Date: 03/31/20 Patient Name: BRANDON BOSS Visit Number: [id number] ATTENTION: The Clinical Documentation Specialists (CDI) and [facility] Coding Staff appreciate your assistance in clarifying documentation. Please respond to the clarification below the line at the bottom and electronically sign. The CDI & [facility] Coding staff will review the response and follow-up if needed. Please note: Queries are made part of the Legal Health Record. If you have any questions, please contact the author of this message via ITS. Dear Dr. Viraj Lee, Patient presented in hepatorenal syndrome, and renal failure acute on chronic. CKD is documented in the numerous PNs, 03/24 consult and DS. Clinical Indicators: (03/23-03/30/20) Current BUN: 70, 72.0, 73.0, 79.0, 87.0, 93.0, 96.0 ,99.0 Current CR: 3.51, 3.4, 3.6, 4.0,4.0, 3.9, 3.9, 3.9 Current GFR: 15, 15.3, 14.2, 12.5, 12.5, 12.9, 12.9, 12.9, 12.9 Treatment: Held Lasix and Aldactone, on Midodrine and Octreotide, albumin 100 g daily for 2 days, monitor strict ins and outs, avoid nephrotoxic agents and hypotensive episodes. In order to capture the severity of condition, please clarify the stage of the CKD, if known: CKD Stage 1 (GFR > 90) CKD Stage 2 (GFR 60-89) CKD Stage 3a (GFR 45-59) CKD Stage 3b (GFR 30-44) CKD Stage 4 (GFR 15-29) CKD Stage 5 (GFR <15) ESRD Other, please specify Unable to determine MTDD
--- NOTE | 2020-04-02 13:09 | CDI ---
Documentation Clarification Form Date: 04/02/20 From: Nell Wild Phone: If you have a question about this query, please contact Misty Restrepo, [employer] at [phone] between 8am and 5pm. Admit Date: 03/23/20 Discharge Date: 03/31/20 Patient Name: BRANDON BOSS Visit Number: [id number] ATTENTION: The Clinical Documentation Specialists (CDI) and [facility] Coding Staff appreciate your assistance in clarifying documentation. Please respond to the clarification below the line at the bottom and electronically sign. The CDI & [facility] Coding staff will review the response and follow-up if needed. Please note: Queries are made part of the Legal Health Record. If you have any questions, please contact the author of this message via ITS. Dear Dr. Krystle Leon, Per Wound Assessment History patient has Stage II left foot pressure injury. Left foot wound medial, stage 2, bilateral boggy heels. Heel and elbow protectors. History/Risk Factors: Hepatorenal syndrome, ATN, CKD, ascites, hyponatremia, ABLA, portal HTN w gastropathy, acidosis, hepatic encephalopathy, COLE In your professional opinion, can you please clarify if you agree with left pressure injury stage II? Yes No Other, please specify Unable to determine Yes MTDD
--- NOTE | 2020-04-16 11:00 | CDI ---
Documentation Clarification Form Date: 04/02/20 From: Nell Wild Phone: If you have a question about this query, please contact Misty Restrepo, Border Patrol Officer at [phone] between 8am and 5pm. Admit Date: 03/23/20 Discharge Date: 03/31/20 Patient Name: BRANDON BOSS Visit Number: [id number] ATTENTION: The Clinical Documentation Specialists (CDI) and [facility] Coding Staff appreciate your assistance in clarifying documentation. Please respond to the clarification below the line at the bottom and electronically sign. The CDI & [facility] Coding staff will review the response and follow-up if needed. Please note: Queries are made part of the Legal Health Record. If you have any questions, please contact the author of this message via ITS. Dear Dr. Viraj Lee, Patient presented in hepatorenal syndrome, and renal failure acute on chronic. CKD is documented in the numerous PNs, 03/24 consult and DS. Clinical Indicators: (03/23-03/30/20) Current BUN: 70, 72.0, 73.0, 79.0, 87.0, 93.0, 96.0 ,99.0 Current CR: 3.51, 3.4, 3.6, 4.0,4.0, 3.9, 3.9, 3.9 Current GFR: 15, 15.3, 14.2, 12.5, 12.5, 12.9, 12.9, 12.9, 12.9 Treatment: Held Lasix and Aldactone, on Midodrine and Octreotide, albumin 100 g daily for 2 days, monitor strict ins and outs, avoid nephrotoxic agents and hypotensive episodes. In order to capture the severity of condition, please clarify the stage of the CKD, if known: CKD Ruled out CKD Stage 1 (GFR > 90) CKD Stage 2 (GFR 60-89) CKD Stage 3a (GFR 45-59) CKD Stage 3b (GFR 30-44) CKD Stage 4 (GFR 15-29) CKD Stage 5 (GFR <15) ESRD Other, please specify Unable to determine MTDD
== END 2020-03-31 10:15 | disposition hospice, inpatient (51) | DRG 441 ==
LOC: EC 15:27 → 5NMEDONC 17:48
PROVIDERS: ADMIT Internal Medicine; ATTEND Internal Medicine
PROC: 30233N1 Transfusion of Nonautologous Red Blood Cells into Peripheral Vein, Percutaneous Approach (ICD-10-PCS; 2020-03-29)
PROC: 0W9G3ZZ Drainage of Peritoneal Cavity, Percutaneous Approach (ICD-10-PCS; principal; 2020-03-30)
DX: K76.7 Hepatorenal syndrome (principal); N17.0 Acute kidney failure with tubular necrosis; R18.8 Other ascites; E87.1 Hypo-osmolality and hyponatremia; D62 Acute posthemorrhagic anemia; K76.6 Portal hypertension; E87.2 Acidosis; K72.90 Hepatic failure, unspecified without coma; I95.89 Other hypotension; L89.152 Pressure ulcer of sacral region, stage 2; D63.1 Anemia in chronic kidney disease; L89.892 Pressure ulcer of other site, stage 2; F31.9 Bipolar disorder, unspecified; Z79.4 Long term (current) use of insulin; K74.69 Other cirrhosis of liver; K75.81 Nonalcoholic steatohepatitis (NASH); D69.59 Other secondary thrombocytopenia; E87.5 Hyperkalemia; Z66 Do not resuscitate; Z51.5 Encounter for palliative care; N18.9 Chronic kidney disease, unspecified; K64.9 Unspecified hemorrhoids; K29.80 Duodenitis without bleeding; K31.89 Other diseases of stomach and duodenum; E87.70 Fluid overload, unspecified; R32 Unspecified urinary incontinence; E78.5 Hyperlipidemia, unspecified; Z91.19 Patient's noncompliance with other medical treatment and regimen; Z79.899 Other long term (current) drug therapy; Z86.14 Personal history of Methicillin resistant Staphylococcus aureus infection; Z86.19 Personal history of other infectious and parasitic diseases; Z98.891 History of uterine scar from previous surgery; Z90.710 Acquired absence of both cervix and uterus; Z90.721 Acquired absence of ovaries, unilateral; Z87.42 Personal history of other diseases of the female genital tract; Z87.440 Personal history of urinary (tract) infections; Z98.890 Other specified postprocedural states; Z88.1 Allergy status to other antibiotic agents; Z88.5 Allergy status to narcotic agent; Z88.0 Allergy status to penicillin; Z88.2 Allergy status to sulfonamides; Z82.5 Family history of asthma and other chronic lower respiratory diseases; Z83.49 Family history of other endocrine, nutritional and metabolic diseases; Z82.49 Family history of ischemic heart disease and other diseases of the circulatory system; Z84.1 Family history of disorders of kidney and ureter
CPT/HCPCS: 36415; 49083; 80048; 80053; 80329; 81001; 82140; 83520; 83930; 83935; 84100; 84300; 85025; 85027; 85610; 85730; 86850; 86900; 86901; 86920; 93005; 94760; 96361; 96374; 96375; 99285

== ENCOUNTER → 2020-03-23 | Day surgery (SDC) | payer MEDICARE ==
[2020-03-23 12:49] VITALS: TEMP 97.5
[2020-03-23 12:51] LABS: Glucose,Whole Blood 139 mg/dL (75-99)
[2020-03-23] MEDS: ALBUMIN HUMAN 25% 50 ML in EMPTY BAG 1 BAG IVPB SCH ×4 (13:12→14:40)
[2020-03-23 15:41] VITALS: BP 102/54; PULSE 94; RESP 18
--- NOTE | 2020-03-23 17:35 | US ---
EXAMINATION TYPE: US paracentesis abd w/image DATE OF EXAM: 03/23/2020 CLINICAL HISTORY: Ascites COMPARISON: 03/13/2020 ultrasound paracentesis WEDGER AND GLUER: Dr. Chelsea Keenan PROCEDURE: Preprocedure laboratory testing demonstrated hyperkalemia and decreased renal function. Patient will be discharged from the radiology department to the ER after paracentesis. Preprocedure preliminary ultrasound imaging demonstrates large volume ascites. The procedure was discussed with the patient. The risks, complications, benefits, and alternatives we re discussed and any questions were answered. Informed consent was obtained. The patient was placed s upine on the ultrasound table and prepped and draped in the usual sterile fashion. All elements of maximal barrier technique were utilized. Under ultrasound guidance, access into the right lower quadrant was obtained with a 5 [place] one-step centesis catheter. Approximately 8.5 liters of clear serous fluid was removed. Catheter was removed and sterile bandage was applied. The patient was stable throughout the procedure and remained stable upon discharge from Department of Radiology. Patient was discharged to the ER for hyperkalemia and decreased renal functi on. IMPRESSION: Successful ultrasound-guided paracentesis, with removal of 8.5 liters of clear serous fluid.
== END ==
LOC: RADPROMAIN 12:11
PROVIDERS: ATTEND Internal Medicine
DX: R18.8 Other ascites (principal)
CPT/HCPCS: 36415; 49083; P9047